=== PATIENT | male | born 1950 | race Caucasian/White ===

== ENCOUNTER → 2023-06-10 | Outpatient (CLI) | payer MEDICARE, OTHER, SELFPAY ==
[2023-06-10 16:27] LABS: PSA,Total - Annual Screen 0.96 ng/mL (0.00-4.00)
== END | disposition home or self-care (01) ==
PROVIDERS: PCP Internal Medicine; Referring Provider Nurse Practitioner; Visit Provider Nurse Practitioner
DX: Z12.5 Encounter for screening for malignant neoplasm of prostate (principal)
CPT/HCPCS: 36415; 84153; G0103

== ENCOUNTER 2025-01-31 10:03 | Emergency (ER) | payer MEDICARE, OTHER, SELFPAY ==
[2025-01-31 10:04] VITALS: BP 151/135; PULSE 92; RESP 15; TEMP 36.7; O2SAT 97; BMI 34.1
--- NOTE | 2025-01-31 10:23 | EX.ED.DYSGE1 ---
HPI History of Present Illness Chief Complaint: Abd Pain [facility] Medical History (Updated 01/31/25 @ 11:07 by Monica Huertas) Hyperlipemia Kidney disease Home Medications ?Medication ?Instructions ?Recorded ?Last Taken ?Type multivitamin with folic acid 400 1 tab PO DAILY 06/12/15 Unknown History mcg tablet (Thera) dutasteride 0.5 mg capsule 0.5 mg PO DAILY 01/31/25 Unknown History montelukast 10 mg tablet 10 mg PO QHS allergies 01/31/25 Unknown History simvastatin 40 mg tablet 40 mg PO QHS 01/31/25 Unknown History Allergy/AdvReac Type Severity Reaction Status Date / Time No Known Allergies Allergy Verified 01/31/25 10:07 Social History Smoking Status: Light Smoker (<10/day) EXAM Physical Exam Const Vital Signs: 01/31/25 10:04 01/31/25 12:04 01/31/25 14:37 Temperature 98.1 F Temperature Source Temporal Pulse Rate 92 65 Respiratory Rate 15 Blood Pressure 151/135 H 114/72 128/77 H Blood Pressure Mean 140 86 94 Pulse Ox 97 95 Oxygen Delivery Method Room Air Room Air [facility] MDM Narrative Medical decision making narrative: HISTORY OF PRESENT ILLNESS: 74-year-old male history of twisted bowel presents with abdominal pain. Notes he feels like he has not in the stomach every evening. Notes pain after eats a snack in the evening. Notes approximate 1 hour after eating he has pain in his right side of his abdomen. No vomiting. Notes he feels distended. REVIEW OF SYSTEMS: Pertinent positives: Abdominal pain Pertinent negatives: Vomiting PHYSICAL EXAM: Nursing triage notes reviewed, Vital signs reviewed Constitutional: please see mdm HENT: MMM Eyes: Pupils equal round and reactive to light, Extraocular muscles intact Neck: No stridor, no JVD, full neck ROM Lungs: Clear to auscultation, No wheezing or rales. No increased work of breathing, no conversational dyspnea, no accessory muscle use, no nasal flaring. No respiratory distress noted Heart: Regular rate and rhythm, No murmurs, No rubs and No gallops, 2+ distal pulses (radial, femoral, posterior tibial) in all extremities Abdomen: Soft, right-sided tenderness, no Palomino sign, rigidity, rebound or guarding, no obvious peritoneal signs, no palpable pulsatile abdominal masses, no auscultated abdominal bruit : No CVAT Extremities: No edema Neuro: No new focal neurological deficits, cranial nerves II through XII intact, 5/5 strength in all present extremities. Intact sensation to light touch in all present extremities, 2+ reflexes bilateral patella tendons. Skin: No rash or lesions noted MEDICAL DECISION MAKING: Chief Complaint: Abdominal pain External records reviewed: Reviewed prior ED visits. Reviewed CT scan from 2007 which showed right ureteral dilatation. Dilatation of the right ureter at the superior aspect of the pelvis Factors affecting care: History of volvulus, congenital atrophy of the kidney Social determinants of health: none History obtained from others: none Consults: none [facility] Narrative: The patient was initially hypertensive with a blood pressure 151/135 otherwise afebrile nontoxic-appearing. Abdominal exam overall benign slightly distended with right upper quadrant/right sided TTP but negative Palomino sign. I considered the following differential diagnosis: AAA, small bowel obstruction, abdominal perforation, appendicitis, pancreatitis, hepatobiliary pathology (acute cholecystitis), mesenteric ischemia, pathology (ie nephrolithiasis, pyelonephritis). ALL IMAGES (IF OBTAINED) HAVE BEEN PERSONALLY REVIEWED AND INTERPRETED BY MYSELF. CBC without leukocytosis, severe anemia, no thrombocytopenia. BMP with improved kidney function, no significant electrolyte abnormalities LFTs show no evidence of hepatobiliary pathology. Lipase is wnl indicating no pancreatic inflammation. Urinalysis with evidence of urinary inflammation and bacteria concerning for possible UTI. Will send urine for culture. CT scan abdomen pelvis showed no evidence of obvious perforation, obstruction but did show evidence of gallbladder wall thickening pericholecystic fluid concerning for acute cholecystitis. Given the read I obtained a right upper quadrant ultrasound. Right quad ultrasound was consistent with acute cholecystitis as well. Discussed with surgery. Discussed with Dr. Richmond. Who was concerned about the patient's kidney findings. Discussed with patient underwent further chart review which showed patient has chronic kidney issues. These do not appear to be new. Dr. Richmond did come down to ED to evaluate the patient. Awaiting her final recommendations. 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 The patient and/or family, caregivers express understanding. The patient and/or family, caregivers agrees with the plan. Shared decision making: I will have a discussion with the patient and or visitors regarding risk/benefits of further testing or admission. They will be made aware of of the risk/benefits inherent in this decision they will be given the opportunity to voice understanding. Total critical care time today provided was at least 0 minutes. This excludes separately billable procedures. Critical care time (if documented) is secondary to the patient having high probability of clinically significant/life threatening deterioration in the patient's condition which required my urgent intervention. Impression: 1. Abdominal pain 2. Gallbladder wall thickening 3. Pericholecystic fluid Dispo: Pending general surgery recommendations. Signed out to afternoon/evening physician pending general surgery recommendations This note was generated with Layer dictation software. It may contain incorrect words, spelling, and punctuation that were not noted in review of the chart prior to signing. Lab Data Labs: Laboratory Results - last 24 hr 01/31/25 01/31/25 10:55 11:05 WBC 7.6 RBC 5.17 Hgb 14.7 Hct 43.8 MCV 84.7 MCH 28.4 MCHC 33.6 RDW Std Deviation 41.7 RDW Coeff of Mildred 13.4 Plt Count 188 MPV 10.3 Immature Gran % (Auto) 0.100 Neut % (Auto) 70.8 H Lymph % (Auto) 16.0 L [place] % (Auto) 10.8 H Eos % (Auto) 1.8 Baso % (Auto) 0.5 Absolute Neuts (auto) 5.4 Absolute Lymphs (auto) 1.21 Nucleated RBC % 0 Sodium 138 Potassium 4.5 Chloride 105 Carbon Dioxide 26.2 Anion Gap 7 BUN 19 Creatinine 1.42 H Estim Creat Clear Calc 57.85 Est GFR (MDRD) Non-Af 53 L BUN/Creatinine Ratio 13.1 Glucose 116 H Calcium 9.3 Total Bilirubin 0.27 AST 20 ALT 22 Alkaline Phosphatase 80 Total Protein 6.6 Albumin 4.0 Globulin 2.6 Albumin/Globulin Ratio 1.5 Lipase 31 Urine Color Yellow Urine Clarity Cloudy Urine pH 6.0 Ur Specific [place] 1.015 Urine Protein 15 H Urine Glucose (UA) Normal Urine Ketones Negative Urine Occult Blood 25 H Urine Nitrite Negative Urine Bilirubin Negative Urine Urobilinogen Normal Ur Leukocyte Esterase 500 H Urine RBC 5-10 SEEN Urine WBC 50-100 SEEN Ur Squamous Epith Cells 0-5 SEEN Urine Bacteria 3+ Urine Mucus 0 SEEN Radiography Diagnostic Testing: Clinical Impression(s) from Imaging Studies Abdomen/Pelvis CT 01/31/25 10:37 IMPRESSION: Multiple small gallstones more prominent and neck of the gallbladder with mild thickening of the gallbladder wall and pericholecystic fluid. Multiple cystic structures are seen in the right kidney with the minimal residual parenchymal tissue suggestive of chronic marked degree of right hydronephrosis with right hydroureter down to the level of the right ureterovesical junction where there is irregular thickening and enlargement of the prostate more prominent on the right side. Findings suggestive of possible polypoid lesion at the base of the bladder more prominent on the right side. Diffuse bladder wall thickening. Reading Location: [facility] Abdomen Ultrasound 01/31/25 13:15 IMPRESSION: Sludge and gallstones seen within the gallbladder lumen with evidence of gallbladder wall thickening and pericholecystic fluid. Acute cholecystitis should be ruled out. Abnormal appearance of the right kidney as described. Fatty infiltration of the liver. Hepatomegaly. Reading Location: [facility] Discharge Plan Triage Chief Complaint: Abd Pain ED Provider: Rashi Lee Dx/Rx/DC Orders Prescriptions: No Action multivitamin with folic acid [Thera] 1 TABLET tablet 1 tab PO DAILY simvastatin 40 mg tablet 40 mg PO QHS montelukast 10 mg tablet 10 mg PO QHS dutasteride 0.5 mg capsule 0.5 mg PO DAILY Primary Care Provider: Erwin Garcia Referrals: Erwin Garcia MD [Primary Care Provider] - Print Language: Comoran
--- NOTE | 2025-01-31 10:37 | CT_ITS ---
PROCEDURE: ABDOMEN/PELVIS WITH CONTRAST 01/31/2025 REASON FOR EXAM: ABDOMINAL PAIN History of prior volvulus. TECHNIQUE: Abdomen CT without and with intravenous contrast. Coronal and Sagittal reconstruction series were provided. PATIENT PREPARATION: Per protocol ORAL CONTRAST TYPE: Given. CONTRAST: Isovue-300 VOLUME: 100 mLmL Gauge IV One or more dose reduction techniques were used (e.g., Automated exposure control, adjustment of the mA and/or kV according to patient size, use of iterative reconstruction technique. RADIATION DOSE SUMMARY: CTDlvol: 15 mGy DLP: 933.41 mGycm COMPARISON: None. COMPARISON: None. FINDINGS: Lung bases: Minimal degree of increased linear markings at the lung bases suggestive of mild linear scarring. No coronary artery calcification is seen. Liver: Diffuse fatty infiltration. Gallbladder: Multiple small gallstones. Minimal thickening of the gallbladder wall with findings suggestive of small amount of pericholecystic fluid. The stones are seen in the region of the neck of the gallbladder. Spleen: Multiple calcified splenic granulomas. Pancreas: Normal size without evidence of mass surrounding inflammation or ductal dilation. Adrenals: Unremarkable. Kidneys: Multiple cystic structures are seen in the right kidney. Minimal renal parenchyma is visualized. This may represent a chronic marked degree of right hydronephrosis. There is dilatation of the right ureter down to the level of the right ureterovesical junction where there is heterogeneous enlargement of the prostate and possible polypoid mass at the base of the bladder worse on the right side. The left kidney is unremarkable. Bladder: Mild degree of diffuse bladder wall thickening. Questionable polypoid mass at the base of the bladder more prominent on the right side. Prostatic enlargement with the calcifications. Bowel: Colonic diverticulosis without diverticulitis. Appendix: The appendix is not identified. There is no inflammatory process identified in the right lower quadrant to suggest appendicitis. Lymph nodes: No suspicious lymph node enlargement. Vasculature: Mild diffuse atherosclerotic calcifications are noted. Peritoneum / Retroperitoneum: No enlarged retroperitoneal lymph nodes are seen. Bones: Degenerative changes of the spine. CT/Abdomen/Pelvis WITH Contrast IMPRESSION: Multiple small gallstones more prominent and neck of the gallbladder with mild thickening of the gallbladder wall and pericholecystic fluid. Multiple cystic structures are seen in the right kidney with the minimal residu al parenchymal tissue suggestive of chronic marked degree of right hydronephrosis with right hydroureter down to the level of the right ureterovesical junction where there is irregular thickening and enlargement of the prostate more prominent on the righ t side. Findings suggestive of possible polypoid lesion at the base of the bladder more prominent on the right side. Diffuse bladder wall thickening. Reading Location: [place] [id number]
[2025-01-31 11:02] LABS: Absolute Lymphocyte Count 1.21 X10^3/uL (0.83-4.51); Absolute Neutrophil Count 5.4 X10^3/uL (2.0-7.7); Basophil# 0.04 X10^3/uL; Basophil% 0.5 % (0-1); Eosinophil# 0.14 X10^3/uL; Eosinophils% 1.8 % (0-5); Hematocrit 43.8 % (40-54); Hemoglobin 14.7 g/dL (13.0-16.5); Lymphocyte # 1.21 X10^3/ul (0.83-4.51); Mean Corp Hgb Conc 33.6 g/dL (32-36); Mean Corpuscular Hgb 28.4 pg (27.0-32.0); Mean Corpuscular Volume 84.7 fL (80-94); Mean Platelet Vol. 10.3 fl (6.2-12.0); Monocyte# 0.82 X10^3/uL; Monocyte% 10.8 % (0-10); NRBC Flagged by Analyzer 0 % (0-5); Neutrophil # 5.35 X10^3/uL (2.7-7.7); Neutrophil % 70.8 % (47-70); Platelet Count 188 K/mm3 (150-450); RBC Distribution Width CV 13.4 % (11.6-14.6); RBC Distribution Width SD 41.7 fl (35.1-43.9); Red Blood Count 5.17 M/mm3 (4.6-6.2); White Blood Count 7.6 K/mm3 (4.4-11.0)
[2025-01-31] MEDS: Ketorolac 15 MG/ML Vial IV (11:03)
[2025-01-31] MEDS: Ondansetron 4 MG/2 ML Vial IV (11:03)
[2025-01-31] MEDS: 0.9% Normal Saline (1000mL) 1,000 ML 999 ML IV (11:03)
[2025-01-31 11:17] LABS: Mucous, Urine 0 SEEN /hpf (<or=2+)
[2025-01-31 11:24] LABS: Color, Urine Yellow (Yellow); Glucose, Dipstick Normal (Normal); Ketone-Dipstick Negative (Negative); Leukocyte Esterase-Dipstick 500 /ul (Negative); Nitrite-Dipstick Negative (Negative); Occult Blood-Urine 25 /ul (Negative); Protein-Dipstick 15 mg/dl (Negative); Specific Gravity, Urine 1.015 (1.002-1.030); Urine Bilirubin Dipstick Negative (Negative); Urine Clarity Cloudy (Clear); Urine Urobilinogen Normal (Normal)
[2025-01-31 11:40] LABS: White Blood Cells 50-100 SEEN /hpf (0-5)
[2025-01-31 11:42] LABS: Red Blood Cells-Urine 5-10 SEEN /hpf (0-5)
[2025-01-31 11:43] LABS: Squamous Epithelial Cells - UA 0-5 SEEN /hpf (0-5)
[2025-01-31 11:44] LABS: Bacteria 3+ /hpf (None Seen)
[2025-01-31 11:56] LABS: Lipase 31 U/L (13-75)
[2025-01-31 11:57] LABS: ALB/GLOB Ratio 1.5 RATIO (0.9-2.4); AST(SGOT) 20 U/L (<=37); Alanine Aminotransfer ALT/SGPT 22 U/L (<=46); Alkaline Phosphatase 80 U/L (40-129); Anion Gap 7 (5-15); BUN 19 mg/dL (4-19); BUN/Creat Ratio 13.1 RATIO (10-20); Calcium,Total 9.3 mg/dL (7.6-11.0); Carbon Dioxide 26.2 mmol/L (21.0-32.0); Chloride 105 mmol/L (98-108); Creatinine, Serum 1.42 mg/dL (0.70-1.20); EST Glomerular Filtration Rate 53 (>60); Estimated Creatinine Clearance 57.85 ml/min (50-250); Globulin 2.6 g/dL (2.2-4.2); Glucose 116 mg/dL (70-99); Potassium 4.5 mmol/L (3.3-5.1); Protein, Total 6.6 g/dL (5.9-8.4); Sodium Level 138 mmol/L (133-145); Total Bilirubin 0.27 mg/dL (0.00-1.30)
[2025-01-31 12:04] VITALS: BP 114/72; PULSE 65; O2SAT 95
--- NOTE | 2025-01-31 13:15 | US_ITS ---
PROCEDURE: ABDOMEN LIMITED REASON FOR EXAM: PERICHOLECYSTIC FLUID R/O ACUTE CHOLECYSTITIS COMPARISON: Comparison is made with prior CT scan done earlier in the day. FINDINGS: Liver: Diffusely echogenic suggesting fatty infiltration. Hepatomegaly. The liver measures 19.7 cm. Gallbladder: Sludge and multiple small gallstones are seen within the gallbladder lumen. The gallbladder wall is thickened measuring 4.6 mm. Small amount of pericholecystic fluid. Common bile duct: Normal measuring it measures 4.4 mm.. Pancreas: Visualized portions are sonographically unremarkable. Abnormal appearance of the right kidney with minimal renal parenchyma. Multi cystic changes are seen suggestive of either chronic severe hydronephrosis versus multiple cysts. US/Abdomen Limited IMPRESSION: Sludge and gallstones seen within the gallbladder lumen with evidence of gallbl adder wall thickening and pericholecystic fluid. Acute cholecystitis should be ruled out. Abnormal appearance of the right kidney as described. Fatty infiltration of the liver. Hepatomegaly. Reading Location: [facility]-
[2025-01-31 14:37] VITALS: BP 128/77
[2025-01-31 16:00] VITALS: BP 137/78; O2SAT 93
[2025-01-31] MEDS: Pantoprazole Sodium 40 MG in 0.9% Normal Saline (100mL MB+) 100 ML 330 MG IV (16:22)
--- NOTE | 2025-01-31 16:24 | ED.RN ---
[facility] called to have CT of abd and pelvis transmitted to [facility].
--- NOTE | 2025-01-31 16:47 | EX.PCM.CON.S ---
Assessment & Plan Assessment/Plan (1) Gallstones: (2) Bloating symptom: (3) Kidney atrophy: PLAN: Plan Pt symptoms were bloating and fit with gastritic etiology more than gallstones. Patient CT abdomen pelvis does show questionable haziness around the gallbladder however patient's white blood count is normal, no change in LFTs patient does have some gallstones. Patient has been able to eat fatty greasy foods without any issues and then usually his issues have come on at night after laying down. Describes as a bloating sensation denies any real pain. Will have patient start omeprazole 40 mg p.o. daily as well as Pepcid first 2 to 3 days and have him follow-up in office in 1 week with me. Also advised low-fat diet until follow-up. Patient is are agreeable to plan. Patient CT abdomen pelvis also shows severe hydronephrosis. Patient states he has an atrophic right kidney that is about the size of a walnut. However did not have previous imaging here unsure why he would have severe hydronephrosis of the ureter and have a smaller bladder if there is not some sort of blockage. Patient's UA also appears to have a UTI. Urine culture was ordered by the ER doctor physician. Recommend getting previous CT a/p to compare the right kidney.?Addendum: CT abdomen pelvis 2016 patient did have hydronephrosis at that time as well not quite as severe. Deferred to urology. Elana Richmond M.D. Pager: [phone] [facility] [address] [place] [address], [facility], [address] [place] [address] Office: [phone] HPI Consult Data Date of Consult: 01/31/25 HPI Narrative HPI Narrative: HOLLIE POWERS, is a 74 M who presents to the ER due to abdominal bloating. Patient states this happened 2 or 3 times last happened last night after eating some trail bologna and cheese states has been an hour after having a snack before bed and laying down they had abdominal bloating could not get comfortable. Patient had this previously at night as well. Patient has been able to eat peanuts and other fatty foods without any issues previously-even for supper last night. Patient denies any nausea or vomiting. Patient does have history of atrophy of the right kidney and states it was the size of a walnut no previous abdominal imaging here. Patient currently denies any abdominal pain states he did have some dysuria after he gave a urine sample in the ER but then went again and did not have any. Patient has a normal white blood cell count at 7.6, no shift, normal LFTs, creatinine 1.42, patient's UA does have 500 leukoesterase, 0-5 squamous and 3+ bacteria. Patient states that he had seen previously seen Dr. Romero for the hydronephrosis and there was nothing to do at that time. COUNT INCLUDES THE [facility] Medical History (Updated 01/31/25 @ 17:[address] Elana Richmond MD) Hyperlipemia Kidney disease Home Medications ?Medication ?Instructions ?Recorded ?Last Taken ?Type multivitamin with folic acid 400 1 tab PO DAILY 06/12/15 Unknown History mcg tablet (Thera) ciprofloxacin HCl 500 mg tablet 500 mg PO BID 7 days #14 TABLETS 01/31/25 Unknown Rx dutasteride 0.5 mg capsule 0.5 mg PO DAILY 01/31/25 Unknown History montelukast 10 mg tablet 10 mg PO QHS allergies 01/31/25 Unknown History omeprazole 40 mg capsule,delayed 40 mg PO DAILY #30 caps 01/31/25 Unknown Rx release simvastatin 40 mg tablet 40 mg PO QHS 01/31/25 Unknown History Allergy/AdvReac Type Severity Reaction Status Date / Time No Known Allergies Allergy Verified 01/31/25 10:07 Surgical History (Updated 01/31/25 @ 16:[address] Elana Richmond MD) Hx of laparoscopy Status post appendectomy Social History Smoking Status: Light Smoker (<10/day) ROS Constitutional Constitutional: Reports anorexia ENT HEENT: Denies dysphagia Cardiovascular Cardiovascular: Denies chest pain Respiratory/Chest Respiratory/Chest: Denies cough Gastrointestinal Gastrointestinal: Reports bloating; Denies abdominal pain, constipation, diarrhea, nausea or vomiting Genitourinary Genitourinary: Reports dysuria Integumentary Integumentary: Denies jaundice Psychiatric Psychiatric: Denies anxiety or depression Endocrine Endocrinology: Denies palpitations Hematologic/Lymphatic Hematologic/Lymphatic: Denies easy bleeding Physical Exam Const alert, oriented x3 and no apparent distress HEENT normocephalic and head/scalp atraumatic Resp normal respiratory effort Cardio regular rate GI soft to palpation and non-tender; Negative for non-distended Palpation: Negative for guarding Extremity no clubbing, cyanosis or edema Skin no rashes or lesions noted Neuro CN's II-XII intact bilaterally Psych mental status grossly normal Lab / Micro Data 01/31/25 10:55 01/31/25 10:55 Labs: Laboratory Results - last 24 hr 01/31/25 10:55: WBC 7.6, RBC 5.17, Hgb 14.7, Hct 43.8, MCV 84.7, MCH 28.4, MCHC 33.6, RDW Std Deviation 41.7, RDW Coeff of Mildred 13.4, Plt Count 188, MPV 10.3, Immature Gran % (Auto) 0.100, Neut % (Auto) 70.8 H, Lymph % (Auto) 16.0 L, [place] % (Auto) 10.8 H, Eos % (Auto) 1.8, Baso % (Auto) 0.5, Absolute Neuts (auto) 5.4, Absolute Lymphs (auto) 1.21, Nucleated RBC % 0, Sodium 138, Potassium 4.5, Chloride 105, Carbon Dioxide 26.2, Anion Gap 7, BUN 19, Creatinine 1.42 H, Estim Creat Clear Calc 57.85, Est GFR (MDRD) Non-Af 53 L, BUN/Creatinine Ratio 13.1, Glucose 116 H, Calcium 9.3, Total Bilirubin 0.27, AST 20, ALT 22, Alkaline Phosphatase 80, Total Protein 6.6, Albumin 4.0, Globulin 2.6, Albumin/Globulin Ratio 1.5, Lipase 31 01/31/25 11:05: Urine Color Yellow, Urine Clarity Cloudy, Urine pH 6.0, Ur Specific [place] 1.015, Urine Protein 15 H, Urine Glucose (UA) Normal, Urine Ketones Negative, Urine Occult Blood 25 H, Urine Nitrite Negative, Urine Bilirubin Negative, Urine Urobilinogen Normal, Ur Leukocyte Esterase 500 H, Urine RBC 5-10 SEEN, Urine WBC 50-100 SEEN, Ur Squamous Epith Cells 0-5 SEEN, Urine Bacteria 3+, Urine Mucus 0 SEEN Imaging Radiology Impression Abdomen/Pelvis CT 01/31/25 10:37 IMPRESSION: Multiple small gallstones more prominent and neck of the gallbladder with mild thickening of the gallbladder wall and pericholecystic fluid. Multiple cystic structures are seen in the right kidney with the minimal residual parenchymal tissue suggestive of chronic marked degree of right hydronephrosis with right hydroureter down to the level of the right ureterovesical junction where there is irregular thickening and enlargement of the prostate more prominent on the right side. Findings suggestive of possible polypoid lesion at the base of the bladder more prominent on the right side. Diffuse bladder wall thickening. Reading Location: [facility] Abdomen Ultrasound 01/31/25 13:15 IMPRESSION: Sludge and gallstones seen within the gallbladder lumen with evidence of gallbladder wall thickening and pericholecystic fluid. Acute cholecystitis should be ruled out. Abnormal appearance of the right kidney as described. Fatty infiltration of the liver. Hepatomegaly. Reading Location: [facility] Charges/Coding Multi Select Codes Visit Charges Office Visit/Consults: 10612 OP Consult L4
[2025-01-31 17:53] VITALS: BP 137/78; PULSE 65; RESP 15; TEMP 36.7; O2SAT 93
== END 2025-01-31 17:59 | disposition home or self-care (01) ==
PROVIDERS: Emergency Provider Emergency Medicine; PCP Internal Medicine; Visit Provider Emergency Medicine
DX: K80.20 Calculus of gallbladder without cholecystitis without obstruction (principal); Q60.0 Renal agenesis, unilateral; Q62.0 Congenital hydronephrosis; Q60.3 Renal hypoplasia, unilateral; N28.1 Cyst of kidney, acquired; N39.0 Urinary tract infection, site not specified; E78.5 Hyperlipidemia, unspecified; F17.200 Nicotine dependence, unspecified, uncomplicated; Z79.899 Other long term (current) drug therapy; Z87.19 Personal history of other diseases of the digestive system
CPT/HCPCS: 74177; 76705; 80053; 81001; 83690; 85025; 87077; 87086; 87088; 87186; 96361; 96365; 96375; 99283; Q9967; A4216; J2405

== ENCOUNTER 2025-02-25 09:52 | Observation (INO) | payer MEDICARE, OTHER, SELFPAY ==
--- NOTE | 2025-02-15 08:44 | EKG12_ITS ---
Test Reason : PREOP Blood Pressure : */* mmHG Vent. Rate : 74 BPM Atrial Rate : 74 BPM P-R Int : 134 ms QRS Dur : 84 ms QT Int : 374 ms P-R-T Axes : 46 -1 71 degrees QTcB Int : 415 ms Normal sinus rhythm Low voltage QRS Possible Inferior infarct , age undetermined Abnormal ECG Confirmed by YAYA CLARKE, LEIGHTON ([id number]), multimedia editor LARY EDWARDS ([id number]) on 02/16/2025 6:36:46 AM Referred By: [place] Romero Confirmed By: LEIGHTON JAVIER MD
--- NOTE | 2025-02-15 16:25 | PAT.ANE_ITS ---
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 When Was Last Pacemaker Check QUESTION #4 FULL TEXT: You/Your Family Experience fever (hyperthermia) with Anesthesia Last Oral Intake Last Oral intake: Last Oral Intake NPO since Meds taken in AM with sips of water? Meds patient instructed to take am of surgery PONV PONV - director retail brand development: PONV - director retail brand development Female No 02/11/25 13:33 HX of Motion Sickness No 02/11/25 13:33 HX of N/V After Surgery No 02/11/25 13:33 Non-Smoker No 02/11/25 13:33 Duration of Surgery greater Yes 02/11/25 13:33 than 60 minutes Number of Risk Factors 1 02/11/25 13:33 PONV Score Low Risk 02/11/25 13:33 Height & Weight Height & Weight: Anesthesia: Height & Weight Height 5 ft 10 in 02/07/25 09:39 Respiratory Assessment Respiratory Assessment - director retail brand development: Respiratory Tract Infection Hx - director retail brand development Hx Respiratory Tract Infection No 02/11/25 13:33 STOP Sleep Apnea STOP Sleep Apnea - director retail brand development: STOP Sleep Apnea - director retail brand development Hx Hypertension No 02/11/25 13:33 Hx Sleep Apnea No 02/11/25 13:33 CPAP BIPAP Do you snore loudly (louder Yes 02/11/25 13:33 than talking or can be heard Do you often feel tired/ No 02/11/25 13:33 fatigued/ sleepy during daytime? Has anyone observed you stop No 02/11/25 13:33 breathing during sleep? STOP Results Negative 02/11/25 13:33 QUESTION #5 FULL TEXT : Do you snore loudly (louder than talking or can be heard through closed doors)? 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 Specify any problems Hx of Preganancy in last 3 N/A 02/11/25 13:33 Months Nurse Filling Out Transfusion JZOLLINGE 02/11/25 13:33 & Questions: Date: 02/11/25 02/11/25 13:33 Time: 13:35 02/11/25 13:33 Patient unable to answer at this time (ie. confused, unrespo /Reproduction History /Reproductive History - director retail brand development: /Reproductive Hx- director retail brand development Hx Now No 02/11/25 13:33 Gestational Age (in weeks): EDC: Hx Hx Para Hx Section SAB No 02/11/25 13:33 [facility] Medical History (Updated 02/11/25 @ 13:33 by Neema Gr) Wears glasses Wears dentures Wears partial dentures Alcohol use Loss of consciousness Dietary restriction Gastric reflux Smoker Chronic cough Hyperlipemia Kidney disease Home Medications ?Medication ?Instructions ?Recorded ?Last Taken ?Type multivitamin with folic acid 400 1 tab PO DAILY Unknown History mcg tablet (Thera) Held on 02/11/25. Instructions: WHILE TAKING CIPRO dutasteride 0.5 mg capsule 0.5 mg PO DAILY 01/31/25 Un known History montelukast 10 mg tablet 10 mg PO QHS allergies 01/31 Unknown History simvastatin 40 mg tablet 40 mg PO QHS 01/31/25 Unknow n History omeprazole 40 mg capsule,delayed 40 mg PO QDAY #30 cap s 02/08/25 Unknown Rx release ciprofloxacin HCl 500 mg tablet 500 mg PO .QD 02/11/25 Unknown History omeprazole 40 mg capsule,delayed 40 mg PO QDAY #30 cap s 02/14/25 Unknown Rx release sucralfate 1 gram tablet 1 g PO QACHS #56 tabs Unknown Rx Allergy/AdvReac Type Severity Reaction Status Date / Time No Known Allergies Allergy Verified 02/11/25 13:21 Family History (Updated 02/07/25 @ 09:38 by Jemima Samano) Mother Diabetes Brother Diabetes Colon cancer Surgical History Hx of laparoscopy Status post appendectomy Social History (Updated 02/07/25 @ 09:43 by Jemima Samano) Smoking Status: Light Smoker (<10/day) quit status: not considering quitting Audit: Pertinent Findings Pertinent Findings EKG Perinent findings: June 12, 2015. Normal sinus rhythm. Recommendation Anesthesia Recommendation Anesthesia recommendation: OPTIMIZED for anesthesia
[2025-02-25] VITALS (17 sets, daily range): BP systolic 108–144; BP diastolic 54–85; PULSE 64–86; RESP 14–20; TEMP 36.3–37.2; O2SAT 92–98; BMI 33.0
[2025-02-25] MEDS: 0.9% Normal Saline (1000mL) 1,000 ML 15 ML IV (06:42)
--- NOTE | 2025-02-25 07:10 | PRE.ANES_ITS ---
ASA Classification* ASA Classification ASA Classification: 2 Assessment & Plan Anesthesia* Anesthesia Assessment Anesthesia Assessment: Discussed sedation and/or anesthesia options, risks, benefits, and alternatives with patient/parents/legal guardian/POA. Questions invited. The patient/parents/legal guardian/POA seems to understand and agrees to proceed with anesthesia plan. Reviewed the physical assessment, medical history, allergy history and patient home medications list prior to surgery/procedure/anesthetic and documented any changes. Performed airway and anesthesia risk assessments. Anesthesia Type Anesthesia Type: General Anesthesia Focused Assessment* Temperature: 97.3 F Pulse Rate: 64 Blood Pressure: 144/85 Respiratory Rate: 20 Pulse Ox: 95 Airway Assessment Mouth opens: >3 cm Mallampati Score: II Focused Labs Anesthesia Preop lab: CBC WBC 7.6 K/mm3 (4.4-11.0) 01/31/25 10:55 01/31/25 RBC 5.17 M/mm3 (4.6-6.2) 01/31/25 10:55 01/31/25 Hgb 14.7 g/dL (13.0-16.5) 01/31/25 10:55 01/31/25 Hct 43.8 % (40-54) 01/31/25 10:55 01/31/25 Plt Count 188 K/mm3 (150-450) 01/31/25 10:55 01/31/25 CHEMISTRY Potassium 4.5 mmol/L (3.3-5.1) 01/31/25 10:55 01/31/25 Sodium 138 mmol/L (133-145) 01/31/25 10:55 01/31/25 BUN 19 mg/dL (4-19) 01/31/25 10:55 01/31/25 Creatinine 1.42 mg/dL (0.70-1.20) H 01/31/25 10:55 Glucose 116 mg/dL (70-99) H 01/31/25 10:55 01/31/25 COAG Pre-Assessment Diagnosis/Proposed Procedure Planned Operative Procedure(s): (R) Laparoscopic, Robotic, Nephrectomy, Ureterectomy Anesthesia History 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 When Was Last Pacemaker Check QUESTION #4 FULL TEXT: You/Your Family Experience fever (hyperthermia) with Anesthesia Last Oral Intake Last Oral intake: Last Oral Intake NPO since 22:00 02/25/25 06:26 Meds taken in AM with sips of water? 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 Female No 02/11/25 13:33 HX of Motion Sickness No 02/11/25 13:33 HX of N/V After Surgery No 02/11/25 13:33 Non-Smoker No 02/11/25 13:33 Duration of Surgery greater Yes 02/11/25 13:33 than 60 minutes Number of Risk Factors 1 02/11/25 13:33 PONV Score Low Risk 02/11/25 13:33 Height & Weight Height & Weight: Anesthesia: Height & Weight Height 5 ft 10 in 02/25/25 06:26 Weight: 104.5 kg 02/25/25 06:26 Body Mass Index (BMI) 33.0 02/25/25 06:26 Respiratory Assessment Respiratory Assessment - oil and gas well treatment operator: Respiratory Tract Infection Hx - oil and gas well treatment operator Hx Respiratory Tract Infection No 02/11/25 13:33 STOP Sleep Apnea STOP Sleep Apnea - oil and gas well treatment operator: STOP Sleep Apnea - oil and gas well treatment operator Hx Hypertension No 02/11/25 13:33 Hx Sleep Apnea No 02/11/25 13:33 CPAP BIPAP Do you snore loudly (louder Yes 02/11/25 13:33 than talking or can be heard Do you often feel tired/ No 02/11/25 13:33 fatigued/ sleepy during daytime? Has anyone observed you stop No 02/11/25 13:33 breathing during sleep? STOP Results Negative 02/11/25 13:33 QUESTION #5 FULL TEXT : Do you snore loudly (louder than talking or can be heard through closed doors)? 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 Specify any problems Hx of Preganancy in last 3 N/A 02/11/25 13:33 Months Nurse Filling Out Transfusion JZOLLINGE 02/11/25 13:33 & Questions: Date: 02/11/25 02/11/25 13:33 Time: 13:35 02/11/25 13:33 Patient unable to answer at this time (ie. confused, unrespo /Reproduction History /Reproductive History - oil and gas well treatment operator: /Reproductive Hx- oil and gas well treatment operator Hx Now No 02/11/25 13:33 Gestational Age (in weeks): EDC: Hx Hx Para Hx Section SAB No 02/11/25 13:33 Active Medications Active Medications: Current Medications Generic Name Dose Route Start Last Admin Trade Name Freq PRN Reason Stop Dose Admin Cefazolin Sodium 2 gm/ N/A 20 mls @ 400 mls/hr 02/25/25 07:30 IV 02/25/25 07:32 X1 ONE Sodium Chloride 1,000 mls @ 15 mls/hr 02/25/25 06:00 02/25/25 06:42 IV 15 mls/hr .Q48H MARVIN Administration PFSH Medical History Wears glasses Wears dentures Wears partial dentures Alcohol use Loss of consciousness Dietary restriction Gastric reflux Smoker Chronic cough Hyperlipemia Kidney disease Home Medications ?Medication ?Instructions ?Recorded ?Last Taken ?Type multivitamin with folic acid 400 1 tab PO DAILY 02/04/25 History mcg tablet (Thera) Held on 02/11/25. Instructions: WHILE TAKING CIPRO dutasteride 0.5 mg capsule 0.5 mg PO DAILY 01/31/25 Un known History montelukast 10 mg tablet 10 mg PO QHS allergies 01/3102/24/25 History simvastatin 40 mg tablet 40 mg PO QHS 01/31/25 Unknow n History omeprazole 40 mg capsule,delayed 40 mg PO QDAY #30 cap s 02/08/25 Unknown Rx release ciprofloxacin HCl 500 mg tablet 500 mg PO .QD 02/11/25 02/24/25 History sucralfate 1 gram tablet 1 g PO QACHS #56 tabs 02/24/25 Rx Allergy/AdvReac Type Severity Reaction Status Date / Time No Known Allergies Allergy Verified 02/25/25 06:24 Family History Mother Diabetes Brother Diabetes Colon cancer Surgical History Hx of laparoscopy Status post appendectomy Social History Smoking Status: Light Smoker (<10/day) quit status: not considering quitting Review of Systems (Anesthesia) ROS Narrative System reviewed and no additional complaints, except as documented.
--- NOTE | 2025-02-25 07:30 | KID_PTH ---
PATIENT: HOLLIE POWERS LOC: [facility] U#:[id number] AGE/SX: 74/M ROOM: [facility]308 RE02/25/[address]: Dr. Los Romero MD : 1950 BED: 1 DIS: 02/27/2025 SPEC #: [id number] RECD: 02/25/25 10:35 STATUS: AVERY FUKN #: [id number] DARIA: 02/25/25 07:[address]: Los Romero DEPT: SURGICAL PATHOLOGY RECD BY: Trell Guerin ENTERED: 02/25/25 10:36 SP TYPE: KIDNEY OTHR DR: Dr. Erwin Garcia MD Tissues: A - Kidney, NOS Procedures: Surgery Specimen Level V HEADER OPERATION: Laparoscopic robotic, right nephroureterectomy PRE-OP DIAGNOSIS: Right hydronephrosis TISSUE SUBMITTED: A- Right kidney, right ureter MICROSCOPIC DIAGNOSIS A. Right kidney, right ureter, hydronephrosis, nephroureterectomy: * Hydronephrosis and cortical atrophy. * Bifurcation of dilated ureter. * Negative for neoplasia. MICROSCOPIC DESCRIPTION Slides are reviewed. GROSS DESCRIPTION A. Received in formalin in a container labeled with the patient's name, date of , and right kidney, right ureter is a 164 g unoriented nephrectomy specimen with attached perirenal fat and a detached ureter. The kidney is 14.0 x 7.5 x 3.5 cm. There are 2 clamped vascular margins measuring 1.3 x 0.2 cm and 1.5 x 0.8 cm. Each is shaved to reveal a patent, unremarkable lumen. The attached possible dilated ureter is 5.5 cm in length by 3.7 cm in diameter. It appears previously disrupted at the margin. Adjacent to the possible ureter is a secondary dilated argueta-pink and tubular-like structure measuring 5.5 cm in length by 5.0 cm in diameter. The specimen is bivalved to reveal that each tubular structure corresponds to the markedly dilated, cystic kidney. The entire kidney is comprised of argueta-pink, smooth surfaces, grossly consistent with dilated calyces. A few tiny argueta nodules are present, 0.1 to 0.2 cm. The nodules appear confined to the mucosal surface. No typical red-brown renal parenchyma is identified. No cortical medullary junctions are present. A single white undesignated suture is identified at one end (inked black). The detached ureter is unoriented. There is an 11.5 x 1.3 cm segment which exhibits a bifurcation that communicates with 2 separate tubular structures measuring 5.5 x 0.9 cm and 7.5 x 1.5 cm. Digital images are taken. Serial sections reveal argueta-pink mucosa with multiple scattered argueta nodules ranging from 0.1 to 0.2 cm. The nodules are confined to the mucosa. No mass lesion is grossly recognized. Received in the same container is argueta-yellow, lobulated adipose tissue measuring 13.5 x 6.0 x 3.0 cm. Serial sections reveal homogenous cut surfaces. Registered Occupational Therapist sections:A1. Vascular margins, en faceA2-3. Serial sections of dilated kidney (inked black at suture)A4. Small nodules present at dilated kidneyA5. 3 ureteral margins, en face (single aspect with each bifurcated lumen)A6. Ureter before bifurcation with small argueta nodulesA7. Ureter at bifurcationA8. Separate, bifurcated ureters with small argueta nodules [facility] 03/09/2025 CPT:44305
[2025-02-25] MEDS: Cefazolin 2 GM in Syringe IV (07:50)
[2025-02-25] MEDS: Bupivacaine Mpf 0.5% 30 ML VIAL (09:44)
--- NOTE | 2025-02-25 09:44 | DCINST_ITS ---
Discharge Instructions Diet Discharge Diet: No restrictions DC O2, CPAP, BIPAP needs Home O2 Discharge instructions: No Dressing / Incision Discharge Activity: Return to Normal Activity and May Not Drive (while taking narcotic pain medications.) Dressing / Incision Call your doctor if you observe: Fever of 101 or Higher Follow Up Care Please Follow Up With: Los Romero MD When: Call [phone] for an appointment Test Results: Test results from this visit will be discussed in further detail at your follow- up appointment, if applicable. Discharge Plan Admission Primary Reason for Your Visit: Right nephro ureterectomy Attending Provider: Los Romero Primary Care Provider: Erwin Garcia Instructions Print Language: Estonian Discharge Orders/Prescriptions Prescriptions: New oxycodone 5 mg tablet 5 mg PO Q6H PRN (Reason: pain) 7 Days Qty: 14 0RF Continued omeprazole 40 mg capsule,delayed release(DR/EC) 40 mg PO QDAY Qty: 30 3RF Rx Instructions: swallow whole; do not crush, chew, dissolve, cut, break sucralfate 1 gram tablet 1 g PO QACHS Qty: 56 0RF Rx Instructions: Take an hour before meals and at bedtime multivitamin with folic acid [Thera] 1 TABLET tablet 1 tab PO DAILY simvastatin 40 mg tablet 40 mg PO QHS montelukast 10 mg tablet 10 mg PO QHS dutasteride 0.5 mg capsule 0.5 mg PO DAILY Discontinued ciprofloxacin HCl 500 mg tablet 500 mg PO .QD Referrals / Follow Up: Los Romero MD [Med Staff - Active Staff] - Erwin Garcia MD [Primary Care Provider] - Disposition Disposition (needs filled in before D/C Order can be placed): Home, Self Care
--- NOTE | 2025-02-25 09:44 | PCM.HP.STD ---
HPI - General General Date of Service: 02/25/25 Chief Complaint: Right nonfunctioning kidney HPI Narrative HOLLIE POWERS, is a 74 M who presents removal of a large right nonfunctioning kidney that is giving him pain and problems recently with a hospital with an infection. [facility] Medical History Wears glasses Wears dentures Wears partial dentures Alcohol use Loss of consciousness Dietary restriction Gastric reflux Smoker Chronic cough Hyperlipemia Kidney disease Home Medications ?Medication ?Instructions ?Recorded ?Last Taken ?Type multivitamin with folic acid 400 1 tab PO DAILY 06/12/15 02/04/25 History mcg tablet (Thera) dutasteride 0.5 mg capsule 0.5 mg PO DAILY 01/31/25 Unknown History montelukast 10 mg tablet 10 mg PO QHS allergies 01/31/25 02/24/25 History simvastatin 40 mg tablet 40 mg PO QHS 01/31/25 Unknown History omeprazole 40 mg capsule,delayed 40 mg PO QDAY #30 caps 02/08/25 Unknown Rx release sucralfate 1 gram tablet 1 g PO QACHS #56 tabs 02/14/25 02/24/25 Rx oxycodone 5 mg tablet 5 mg PO Q6H PRN pain 7 days #14 02/25/25 Unknown Rx tabs Allergy/AdvReac Type Severity Reaction Status Date / Time No Known Allergies Allergy Verified 02/25/25 06:24 Family History Mother Diabetes Brother Diabetes Colon cancer Surgical History Hx of laparoscopy Status post appendectomy Social History Smoking Status: Light Smoker (<10/day) quit status: not considering quitting Vital Signs Vital Signs Vital Signs: 02/25/25 06:26 02/25/25 06:28 02/25/25 07:10 Temperature 97.3 F L 97.3 F L Temperature Source Temporal Pulse Rate 64 64 Respiratory Rate 20 H 20 H Respiratory Pattern Normal Blood Pressure 144/85 H 144/85 H Blood Pressure Mean 104 Blood Pressure Source Monitor Blood Pressure Position Semi-Fowlers Blood Pressure Location Right Arm Pulse Ox 95 95 Oxygen Delivery Method Room Air Weight Weight: 104.5 kg Body Mass Index (BMI) 33.0
--- NOTE | 2025-02-25 09:44 | PCM.OPRPT ---
Operative Report (Standard) Operative Information Date of Procedure: 02/25/25 Pre-Operative Diagnosis: Right nonfunctioning kidney hydroureteronephrosis Post-Operative Diagnosis: The same Surgery/Procedure Performed: Laparoscopic robotic assisted right nephro ureterectomy attraction attendant: No Type of Anesthesia: General RN Documented Start/Stop Times: Operation Date: 02/25/25 07:30 Case Time Into Pre-Op 02/25/25 05:59 Out of Pre-Op 02/25/25 07:26 Anesthesia Start 02/25/25 07:33 Into Room 02/25/25 07:33 Procedure Start 02/25/25 07:58 Procedure Start Time: 07:33 Procedure Stop Time: 09:45 Select all DRAINS/GRAFTS/IMPLANTS that apply: Drains Drain details: Osborn catheter Estimated Blood Loss: 25cc Specimen collected: Yes Description of specimen(s) removed: Right nephrectomy for your ureter a specimen Description of surgery: Patient was taken back to the operative room with us with duction of anesthesia he was placed supine on the table Osborn catheter was placed he was intubated he was then transferred to full flank position and then the abdomen was shaved prepped and draped in usual fashion marked out my incision second to have a camera port right arm port left arm port a second left arm port and a air seal port suction for the phlebotomist lab assistant I then docked the robot we placed our instruments inside the abdomen and we started with the dissection and he had a extensive adhesions from prior appendectomy I did dissect the colon off the lateral sidewall I then reflected the colon off the kidney dissecting the colon off the kidney very carefully I then identified the liver it was adherent to the kidney the kidney was super swollen with fluid EXTR extremely large make it quite difficult I then had to dissect out the the liver off the kidney completely all the way up until cephalad and then were freed up the liver off the upper attachments allow the liver to retract off the kidney. I then dissected the colon off the kidney completely I then identified the ureter the ureter was extremely large I went into the ureter and elevated up the ureter and the kidney I then used the fourth on the hold up the kidney and then dissected very carefully underneath the kidney until I reached the renal vein renal vein was identified 2 clips down 1 clip up and was transected and then the branching renal artery was identified 2 clips down 1 clip up and then was transected I then did not take the adrenal gland I dissected cephalad until I freed up the kidney from the liver attachments all the way up to the liver spinal ligament and then this was taken down and then we took down the kidney from the lateral sidewall working her way down then at this point we made a purse incision in the kidney then placed the suction port into the kidney made an small incision in the kidney and then dry sucked out all the fluid from the kidney we sucked out probably 900 cc of urine from the kidney and then at this point that this decompressed nicely and then I traced the ureter down as far as possible to the bladder but I did not open the bladder and then transected the ureter we try to place a clip to parse the ureter but it ureter was so large the clip would not go across the ureter. So then transected the ureter and then stitched the ureter closed with a 3-0 Vicryl to close the ureter so would prevent refluxing that at this point the kidney and ureter was placed in an Endo Catch bag the robot was undocked I then scrubbed in and assisted opened up the lower port incision site and we extracted the kidney from the lower port and extraction site. We then closed the extraction site with 1-0 Vicryl stitches interrupted we then closed the camera port and the air seal port and then all the ports were removed under visualization minimal bleeding during the entire case 25 cc and then we closed all the subcuticular stitches with 4-0 Monocryl dressings and bandages were placed the patient is currently being reversed from his anesthetic and currently stable and being taken the PACU. Surgical Findings: Dilated right ureter and and kidney Complications Complications: No Admit VTE Documentation VTE Present on Admission: No VTE Mechan Device Prophylaxis: SCD's VTE Pharm Prophylaxis ordered?: No
--- NOTE | 2025-02-25 10:05 | PCM.POST.ANE ---
Anesthesia: Postop Eval I Current Vital Signs Temperature: 97.6 F Pulse Rate: 66 Blood Pressure: 125/71 Respiratory Rate: 16 Pulse Ox: 95 Oxygen Delivery Method: Room Air Assessment Airway patent: Yes Spontaneous unlabored respirations: Yes Mental status: Awake and Calm nausea: No Vomiting: No Anesthesia Complication: No Fluid Hydration Crystalloid volume administer (ml): 1,600 Total IV fluid infused: 1,600 Progress Note Anesthesia document: Postop Eval 1 completed: Yes
--- NOTE | 2025-02-25 11:11 | POSTOPAN2_ITS ---
Anesthesia Postop Eval I Sum Postop Eval Completion status Anesthesia document: Postop Eval 1 completed: Yes Anesthesia Postop Eval I Summary Anesthesia Postop Eval I Summary: Anesthesia Postop Eval I: Assessment Summary Airway patent Yes 02/25/25 10:06 [email or web address] Spontaneous unlabored Yes 02/25/25 10:06 [email or web address] respirations Mental status Awake,Calm 02/25/25 10:06 [email or web address] nausea No 02/25/25 10:06 [email or web address] Vomiting No 02/25/25 10:06 [email or web address] Anesthesia Postop Eval I: Fluid Summary Crystalloid volume administer 1,600 02/25/25 10:06 [email or web address] (ml) Colloids volume administered ( ml) Blood Product volume administered (ml) Total IV fluid infused 1,600 02/25/25 10:06 [email or web address] Anesthesia Postop Eval I: Summary Notes Anesthesia Complication No 02/25/25 10:06 [email or web address] Anesthesia Complication Comment: Post-operative progress note Anesthesia: Postop Eval II Evaluation Mental status: Awake Pain Level: 0 nausea: No Vomiting: No
--- NOTE | 2025-02-25 11:11 | PCM.POSTANE2 ---
Anesthesia Postop Eval I Sum Postop Eval Completion status Anesthesia document: Postop Eval 1 completed: Yes Anesthesia Postop Eval I Summary Anesthesia Postop Eval I Summary: Anesthesia Postop Eval I: Assessment Summary Airway patent Yes 02/25/25 10:06 [email or web address] Spontaneous unlabored Yes 02/25/25 10:06 [email or web address] respirations Mental status Awake,Calm 02/25/25 10:06 [email or web address] nausea No 02/25/25 10:06 [email or web address] Vomiting No 02/25/25 10:06 [email or web address] Anesthesia Postop Eval I: Fluid Summary Crystalloid volume administer 1,600 02/25/25 10:06 [email or web address] (ml) Colloids volume administered ( ml) Blood Product volume administered (ml) Total IV fluid infused 1,600 02/25/25 10:06 [email or web address] Anesthesia Postop Eval I: Summary Notes Anesthesia Complication No 02/25/25 10:06 [email or web address] Anesthesia Complication Comment: Post-operative progress note Anesthesia: Postop Eval II Evaluation Mental status: Awake Pain Level: 0 nausea: No Vomiting: No
[2025-02-25] MEDS: 0.9% Normal Saline (1000mL) 1,000 ML 125 ML IV ×2 (11:20→19:48)
[2025-02-25] MEDS: Docusate Sodium 100 MG Capsule 200 MG PO ×2 (11:45→21:43)
[2025-02-25] MEDS: Sucralfate 1 GM Tablet PO ×3 (11:45→21:43)
[2025-02-25] MEDS: oxyCODONE 5 MG Tablet PO (19:29)
[2025-02-25] MEDS: Acetaminophen 325 MG Tablet 650 MG PO (19:29)
[2025-02-25] MEDS: Atorvastatin Calcium 20 MG Tablet PO (21:43)
[2025-02-25] MEDS: Montelukast 10 MG Tablet PO (21:43)
[2025-02-25] MEDS: 0.9% Saline Lock 10 ML Syringe IV (23:49)
[2025-02-26 03:35] VITALS: BP 104/57; PULSE 65; RESP 16; TEMP 37.1; O2SAT 92
[2025-02-26] MEDS: 0.9% Normal Saline (1000mL) 1,000 ML 125 ML IV ×3 (03:39→19:44)
[2025-02-26 06:00] VITALS: BP 105/50; PULSE 66; RESP 16; TEMP 36.5; O2SAT 93
[2025-02-26] MEDS: Sucralfate 1 GM Tablet PO ×2 (06:00→22:49)
[2025-02-26 07:15] LABS: Absolute Lymphocyte Count 1.15 X10^3/uL (0.83-4.51); Absolute Neutrophil Count 8.1 X10^3/uL (2.0-7.7); Basophil# 0.02 X10^3/uL; Basophil% 0.2 % (0-1); Eosinophil# 0.01 X10^3/uL; Eosinophils% 0.1 % (0-5); Hemoglobin 11.2 g/dL (13.0-16.5); Lymphocyte # 1.15 X10^3/ul (0.83-4.51); Mean Corp Hgb Conc 32.9 g/dL (32-36); Mean Corpuscular Hgb 28.4 pg (27.0-32.0); Mean Corpuscular Volume 86.3 fL (80-94); Mean Platelet Vol. 11.3 fl (6.2-12.0); Monocyte# 1.19 X10^3/uL; Monocyte% 11.4 % (0-10); NRBC Flagged by Analyzer 0 % (0-5); Neutrophil # 8.05 X10^3/uL (2.7-7.7); Neutrophil % 76.9 % (47-70); Platelet Count 153 K/mm3 (150-450); RBC Distribution Width CV 13.2 % (11.6-14.6); RBC Distribution Width SD 41.4 fl (35.1-43.9); Red Blood Count 3.94 M/mm3 (4.6-6.2); White Blood Count 10.5 K/mm3 (4.4-11.0)
[2025-02-26 07:43] LABS: Anion Gap 10 (5-15); BUN 15 mg/dL (4-19); BUN/Creat Ratio 9.7 RATIO (10-20); Carbon Dioxide 20.2 mmol/L (21.0-32.0); Chloride 109 mmol/L (98-108); Creatinine, Serum 1.54 mg/dL (0.70-1.20); EST Glomerular Filtration Rate 48 (>60); Glucose 144 mg/dL (70-99); Potassium 4.2 mmol/L (3.3-5.1); Sodium Level 139 mmol/L (133-145)
--- NOTE | 2025-02-26 09:03 | PCM.PN.GU ---
Subjective Subjective s/p right nephro U doing well d/c lux home after lunch Objective Data Objective Data Vital Signs: Vital Signs Temp Pulse Resp BP Pulse Ox O2 Del Method O2 Flow Rate 97.7 F L 66 16 105/50 L 93 Room Air 2 02/26/25 06:00 02/26/25 06:00 02/26/25 06:00 02/26/25 06:00 02/26/25 06:00 02/26/25 06:00 02/25/25 15:29 Oxygen Flow Rate (L/min) 2 Oxygen Delivery Method Room Air Weight: 104.5 kg Body Mass Index (BMI) 33.0 Intake & Output: Intake and Output for Last 24 Hours 02/24/25 02/25/25 02/26/25 23:59 23:59 23:59 Intake Total 3670 / 3670 2081.25 / 2081.25 Output Total 2380 / 2380 1225 / 1225 Balance 1290 / 1290 856.25 / 856.25 Lab / Micro Data 02/26/25 05:40 02/26/25 05:40 Labs: Laboratory Results - last 24 hr 02/26/25 05:40: WBC 10.5, RBC 3.94 L, Hgb 11.2 L, Hct 34.0 L, MCV 86.3, MCH 28.4, MCHC 32.9, RDW Std Deviation 41.4, RDW Coeff of Mildred 13.2, Plt Count 153, MPV 11.3, Immature Gran % (Auto) 0.400, Neut % (Auto) 76.9 H, Lymph % (Auto) 11.0 L, [place] % (Auto) 11.4 H, Eos % (Auto) 0.1, Baso % (Auto) 0.2, Absolute Neuts (auto) 8.1 H, Absolute Lymphs (auto) 1.15, Nucleated RBC % 0, Sodium 139, Potassium 4.2, Chloride 109 H, Carbon Dioxide 20.2 L, Anion Gap 10, BUN 15, Creatinine 1.54 H, Estim Creat Clear Calc 52.50, Est GFR (MDRD) Non-Af 48 L, BUN/Creatinine Ratio 9.7 L, Glucose 144 H, Calcium 8.0
[2025-02-26] MEDS: Finasteride 5 MG Tablet PO (10:08)
[2025-02-26] MEDS: Docusate Sodium 100 MG Capsule 200 MG PO ×2 (10:08→22:49)
[2025-02-26] MEDS: Pantoprazole Sodium 40 MG Tablet PO (10:08)
[2025-02-26 10:13] VITALS: BP 125/62; PULSE 66; RESP 16; TEMP 36.8; O2SAT 95
[2025-02-26] MEDS: oxyCODONE 5 MG Tablet PO (11:26)
--- NOTE | 2025-02-26 11:33 | NURSING ---
Patient called out and said he was in severe pain in his abd and also right shoulder area. 10mg oxyir given. bladder scanned as well for only 49ml. He has voided 150ml since catheter removal. encouraged patient to ambulate/sit in chair. He said he wants to wait for the pain medication to start to work before he moves around. Will continue to monitor.
--- NOTE | 2025-02-26 13:07 | NURSING ---
Ambulated in halls. Still painful, but getting better. patient thinks he needs to have a bm. now in restroom. will cont. to monitor.
--- NOTE | 2025-02-26 13:24 | NURSING ---
Continues to be painful. Bladder scanned for about 40ml, but picture was not clear. Dr. Romero paged.
[2025-02-26] MEDS: Ketorolac 15 MG/ML Vial IM (13:52)
[2025-02-26] MEDS: Heparin Injection (Vial) 5,000 UNIT/ML VIAL 5000 UNIT SC ×2 (13:53→22:49)
[2025-02-26 19:00] VITALS: O2SAT 93
[2025-02-26] MEDS: Tamsulosin HCl 0.4 MG Capsule PO (22:49)
[2025-02-26] MEDS: Atorvastatin Calcium 20 MG Tablet PO (22:49)
[2025-02-26] MEDS: Montelukast 10 MG Tablet PO (22:49)
[2025-02-26 23:00] VITALS: BP 139/77; PULSE 79; RESP 18; TEMP 36.6; O2SAT 93
[2025-02-27 01:00] VITALS: O2SAT 93
[2025-02-27] MEDS: 0.9% Normal Saline (1000mL) 1,000 ML 125 ML IV (03:23)
[2025-02-27 05:00] VITALS: BP 135/75; PULSE 68; RESP 14; TEMP 36.8; O2SAT 93
[2025-02-27] MEDS: Heparin Injection (Vial) 5,000 UNIT/ML VIAL 5000 UNIT SC (05:16)
[2025-02-27] MEDS: Sucralfate 1 GM Tablet PO ×2 (05:17→11:01)
[2025-02-27 06:07] LABS: Absolute Lymphocyte Count 1.54 X10^3/uL (0.83-4.51); Absolute Neutrophil Count 5.1 X10^3/uL (2.0-7.7); Basophil# 0.03 X10^3/uL; Basophil% 0.4 % (0-1); Eosinophil# 0.14 X10^3/uL; Eosinophils% 1.8 % (0-5); Hematocrit 32.7 % (40-54); Hemoglobin 10.9 g/dL (13.0-16.5); Lymphocyte # 1.54 X10^3/ul (0.83-4.51); Lymphocyte % 19.8 % (19-41); Mean Corp Hgb Conc 33.3 g/dL (32-36); Mean Corpuscular Hgb 28.3 pg (27.0-32.0); Mean Corpuscular Volume 84.9 fL (80-94); Mean Platelet Vol. 11.2 fl (6.2-12.0); Monocyte# 0.95 X10^3/uL; Monocyte% 12.2 % (0-10); NRBC Flagged by Analyzer 0 % (0-5); Neutrophil # 5.07 X10^3/uL (2.7-7.7); Neutrophil % 65.4 % (47-70); Platelet Count 129 K/mm3 (150-450); RBC Distribution Width CV 13.2 % (11.6-14.6); RBC Distribution Width SD 40.9 fl (35.1-43.9); Red Blood Count 3.85 M/mm3 (4.6-6.2); White Blood Count 7.8 K/mm3 (4.4-11.0)
[2025-02-27 07:01] LABS: Anion Gap 8 (5-15); BUN 12 mg/dL (4-19); BUN/Creat Ratio 8.4 RATIO (10-20); Calcium,Total 7.9 mg/dL (7.6-11.0); Carbon Dioxide 20.5 mmol/L (21.0-32.0); Chloride 112 mmol/L (98-108); Creatinine, Serum 1.48 mg/dL (0.70-1.20); EST Glomerular Filtration Rate 50 (>60); Estimated Creatinine Clearance 54.62 ml/min (50-250); Glucose 118 mg/dL (70-99); Potassium 3.7 mmol/L (3.3-5.1); Sodium Level 141 mmol/L (133-145)
[2025-02-27 07:21] VITALS: O2SAT 92
[2025-02-27 08:01] VITALS: BP 138/73; PULSE 71; RESP 14; TEMP 36.9; O2SAT 94
[2025-02-27] MEDS: Docusate Sodium 100 MG Capsule 200 MG PO (08:12)
[2025-02-27] MEDS: Pantoprazole Sodium 40 MG Tablet PO (08:13)
[2025-02-27] MEDS: Finasteride 5 MG Tablet PO (08:13)
[2025-02-27] MEDS: oxyCODONE 5 MG Tablet PO ×2 (08:20→14:13)
[2025-02-27] MEDS: Acetaminophen 325 MG Tablet 650 MG PO ×2 (08:21→14:11)
--- NOTE | 2025-02-27 09:51 | PN.URO_ITS ---
Subjective Subjective s/p right nephro U anyi reg diet + BMs could not void yesturday add flomax d/c lux today, if can void okay then home if still can't void or painful then home with lux to leg bag Objective Data Objective Data Vital Signs: Vital Signs Temp Pulse Resp BP Pulse Ox O2 Del Method O2 Flow Rate 98.4 F 71 14 138/73 H 94 Nasal Cannula 2 02/27/25 08:01 02/27/25 08:01 02/27/25 08:01 02/27/25 08:01 02/27/25 08:01 02/27/25 08:05 02/27/25 08:05 Oxygen Flow Rate (L/min) 2 Oxygen Delivery Method Nasal Cannula Weight: 104.5 kg Body Mass Index (BMI) 33.0 Intake & Output: Intake and Output for Last 24 Hours 02/25/25 02/26/25 02/27/25 23:59 23:59 23:59 Intake Total 3670 / 3670 4858.33 / 4858.33 956.25 / 956.25 Output Total 2380 / 2380 2125 / 2125 1800 / 1800 Balance 1290 / 1290 2733.33 / 2733.33 -843.75 / -843.75 Lab / Micro Data 02/27/25 05:09 02/27/25 05:09 Labs: Laboratory Results - last 24 hr 02/27/25 05:09: WBC 7.8, RBC 3.85 L, Hgb 10.9 L, Hct 32.7 L, MCV 84.9, MCH 28.3, MCHC 33.3, RDW Std Deviation 40.9, RDW Coeff of Mildred 13.2, Plt Count 129 L, MPV 11.2, Immature Gran % (Auto) 0.400, Neut % (Auto) 65.4, Lymph % (Auto) 19.8, M francisco % (Auto) 12.2 H, Eos % (Auto) 1.8, Baso % (Auto) 0.4, Absolute Neuts (auto) 5.1, Absolute Lymphs (auto) 1.54, Nucleated RBC % 0, Sodium 141, Potassium 3.7, Chloride 112 H, Carbon Dioxide 20.5 L, Anion Gap 8, BUN 12, Creatinine 1.48 H, Estim Creat Clear Calc 54.62, Est GFR (MDRD) Non-Af 50 L, BUN/Creatinine Ratio 8.4 L, Glucose 118 H, Calcium 7.9
== END 2025-02-27 14:46 | disposition home or self-care (01) ==
LOC: SDC 10:06 → MS3 10:06
PROVIDERS: Admitting Provider Urology; PCP Internal Medicine; Referring Provider Urology; Visit Provider Urology
PROC: (CPT 50546; principal; 2025-02-25 07:10)
DX: N26.1 Atrophy of kidney (terminal) (principal); N13.39 Other hydronephrosis; N28.82 Megaloureter; N40.1 Benign prostatic hyperplasia with lower urinary tract symptoms; R35.1 Nocturia; R32 Unspecified urinary incontinence; E78.5 Hyperlipidemia, unspecified; K21.9 Gastro-esophageal reflux disease without esophagitis; F17.200 Nicotine dependence, unspecified, uncomplicated; Z79.899 Other long term (current) drug therapy; Q62.8 Other congenital malformations of ureter
CPT/HCPCS: 50548; S2900; 00862; 36415; 80048; 85025; 88307; 93005; 94668; 96361; 96372; 96374; 99221; 99406; A4216; G0378; J2405

== ENCOUNTER 2025-04-25 21:05 | Inpatient (IN) | payer MEDICARE, OTHER, SELFPAY ==
[2025-04-25 21:06] VITALS: BP 119/67; PULSE 73; RESP 16; TEMP 36.4; O2SAT 91; BMI 32.5
[2025-04-25 21:47] LABS: Absolute Lymphocyte Count 1.15 X10^3/uL (0.83-4.51); Absolute Neutrophil Count 8.3 X10^3/uL (2.0-7.7); Basophil# 0.04 X10^3/uL; Basophil% 0.4 % (0-1); Eosinophil# 0.08 X10^3/uL; Eosinophils% 0.7 % (0-5); Hematocrit 47.8 % (40-54); Hemoglobin 15.8 g/dL (13.0-16.5); Lymphocyte # 1.15 X10^3/ul (0.83-4.51); Lymphocyte % 10.5 % (19-41); Mean Corp Hgb Conc 33.1 g/dL (32-36); Mean Corpuscular Hgb 27.9 pg (27.0-32.0); Mean Corpuscular Volume 84.5 fL (80-94); Mean Platelet Vol. 11.1 fl (6.2-12.0); Monocyte# 1.28 X10^3/uL; Monocyte% 11.7 % (0-10); NRBC Flagged by Analyzer 0 % (0-5); Neutrophil # 8.34 X10^3/uL (2.7-7.7); Neutrophil % 76.3 % (47-70); Platelet Count 197 K/mm3 (150-450); RBC Distribution Width CV 13.9 % (11.6-14.6); RBC Distribution Width SD 42.5 fl (35.1-43.9); Red Blood Count 5.66 M/mm3 (4.6-6.2); White Blood Count 10.9 K/mm3 (4.4-11.0)
--- NOTE | 2025-04-25 22:10 | US_ITS ---
PROCEDURE: GALLBLADDER 04/25/2025 REASON FOR EXAM: RUQ PAIN COMPARISON: Right upper quadrant ultrasound and CT abdomen pelvis 01/31/2025. FINDINGS: Liver: Diffusely echogenic suggesting fatty infiltration. Normal in size measuring 14.5 cm. The main portal vein is patent with normal directional flow at midline. Gallbladder: A single echogenic gallstone is identified. No gallbladder wall thickening, pericholecystic fluid or tenderness. Common bile duct: Normal measuring 0.4 cm. Pancreas: Obscured by bowel gas. Other: Prior right nephrectomy. US/Gallbladder IMPRESSION: Cholelithiasis without evidence of acute cholecystitis. Reading Location: [id number]
[2025-04-25] MEDS: 0.9% Normal Saline (1000mL) 1,000 ML 999 ML IV (22:17)
[2025-04-25] MEDS: Ondansetron 4 MG/2 ML Vial IV (22:17)
[2025-04-25] MEDS: Morphine 4 MG/ML Syringe IV (22:17)
--- NOTE | 2025-04-25 22:22 | EX.ED.DYSGE1 ---
HPI History of Present Illness Chief Complaint: Abd Pain Narrative Narrative: Patient is a 74-year-old male with past medical history of chronic kidney disease status post right nephrectomy, hyperlipidemia, alcohol use who presented to the emergency department chief complaint of concern that his gallbladder is being obstructed by stone. He states that on Friday he had significant pain he went to a freestanding ER in [place] and had a CT scan that showed a large stone at that point in time. He states that as the weekend progressed and into today's pain significantly worsened prompting him to come here for further evaluation management. He states that he has followed with Dr. Richmond in the past and states that he has a upcoming appointment on Friday with her but does not feel that he can make it till then. He states that he was post have his gallbladder removed in the past but the right kidney was not functioning appropriately and they wanted to have that kidney removed prior to proceeding with any other surgeries. [facility] Medical History Wears glasses Wears dentures Wears partial dentures Alcohol use Loss of consciousness Dietary restriction Gastric reflux Smoker Chronic cough Hyperlipemia Kidney disease Home Medications ?Medication ?Instructions ?Recorded ?Last Taken ?Type multivitamin with folic acid 400 1 tab PO DAILY 06/12/15 02/04/25 History mcg tablet (Thera) dutasteride 0.5 mg capsule 0.5 mg PO DAILY 01/31/25 Unknown History montelukast 10 mg tablet 10 mg PO QHS allergies 01/31/25 02/24/25 History simvastatin 40 mg tablet 40 mg PO QHS 01/31/25 Unknown History omeprazole 40 mg capsule,delayed 40 mg PO QDAY #30 caps 02/08/25 Unknown Rx release oxycodone 5 mg tablet 5 mg PO Q6H PRN pain 7 days #14 02/25/25 Unknown Rx tabs tamsulosin 0.4 mg capsule (Flomax) 0.4 mg PO DAILY #30 caps 02/27/25 Unknown Rx Allergy/AdvReac Type Severity Reaction Status Date / Time No Known Allergies Allergy Verified 04/25/25 21:09 Family History Mother Diabetes Brother Diabetes Colon cancer Surgical History Hx of laparoscopy Status post appendectomy Social History Smoking Status: Light Smoker (<10/day) quit status: not considering quitting ROS ROS ED ROS Narrative Constitutional: Denies fevers, chills, headaches Cardiovascular: Denies chest pain or palpitations Respiratory: Denies shortness of breath Abdomen: Complains of abdominal pain as noted above : Denies urinary symptoms Neurological: Denies numbness, aches, tingling Musculoskeletal: Denies back pain Skin: Denies rashes or lesions EXAM Physical Exam Narrative Exam Narrative: General: Patient lying in bed did appear to be uncomfortable secondary to his abdominal pain Head: Atraumatic, normocephalic Eyes: PERRL bilaterally, EOMI bilaterally, no conjunctival injection noted Neck: Soft, supple, trachea midline Cardiovascular: Regular rate and rhythm Respiratory: Clear to auscultation bilaterally Abdomen: Soft, nondistended, tender to palpation in the right upper quadrant positive Palomino sign no rebound or guarding on exam Extremities: +5/5 strength noted in the bilateral upper and lower extremities Neurological: Patient follow commands knew that he was at [facility] years 2024 Skin: Warm, dry, intact patient does appear to be slightly jaundiced Const Vital Signs: 04/25/25 21:06 04/25/25 23:05 04/25/25 23:48 Temperature 97.5 F L 98.6 F Temperature Source Oral Pulse Rate 73 65 65 Respiratory Rate 16 18 Blood Pressure 119/67 119/62 Blood Pressure Mean 84 81 Pulse Ox 91 92 Oxygen Delivery Method Room Air MDM MDM MDM Narrative Medical decision making narrative: Patient is a 74-year-old male who presents to the emerged from chief complaint of abdominal pain and concern for cholecystitis. On the differential diagnosis includes but not limited to acute cholecystitis, pancreatitis, bowel obstruction, cholelithiasis, choledocholithiasis, cholangitis. Once workup is obtained reviewed he will be reevaluated. Patient be given IV fluids morphine Zofran Patient CBC reviewed showed no evidence leukocytosis white blood count normal at 10.9, he was 15.8, platelet count was 197. Patient sodium is 140, potassium normal 3.9, creatinine was 1.49 this appears to be around his baseline as he has underlying chronic kidney disease. Patient total bilirubin elevated at 5.33 AST and ALT are 46 and 835 respectively alk phosphatase elevated to 28, lipase greater than 3000. Patient's gallbladder ultrasound reviewed which showed cholelithiasis without evidence of acute cholecystitis. Discussed case with on-call general surgeon Dr. Arnold who states that he likely needs ERCP and later on they will discuss about taking his gallbladder out. Called and discussed with Dr. Villatoro who states that he will take care of the patient tomorrow. Will discuss case with hospitalist for admission. Discussed case with admitting physician Dr. Mora who accept patient for admission. Patient notified is agreeable to plan all question concerns answered Lab Data Labs: Laboratory Results - last 24 hr 04/25/25 21:16 WBC 10.9 RBC 5.66 Hgb 15.8 Hct 47.8 MCV 84.5 MCH 27.9 MCHC 33.1 RDW Std Deviation 42.5 RDW Coeff of Mildred 13.9 Plt Count 197 MPV 11.1 Immature Gran % (Auto) 0.400 Neut % (Auto) 76.3 H Lymph % (Auto) 10.5 L [place] % (Auto) 11.7 H Eos % (Auto) 0.7 Baso % (Auto) 0.4 Absolute Neuts (auto) 8.3 H Absolute Lymphs (auto) 1.15 Nucleated RBC % 0 Sodium 140 Potassium 3.9 Chloride 104 Carbon Dioxide 22.9 Anion Gap 13 BUN 13 Creatinine 1.49 H Estim Creat Clear Calc 53.81 Est GFR (MDRD) Non-Af 50 L BUN/Creatinine Ratio 8.7 L Glucose 162 H Calcium 9.7 Total Bilirubin 5.33 H AST 486 H ALT 835 H Alkaline Phosphatase 228 H Total Protein 7.4 Albumin 4.3 Globulin 3.1 Albumin/Globulin Ratio 1.4 Lipase > 3000 H Radiography Diagnostic Testing: Clinical Impression(s) from Imaging Studies Gallbladder Ultrasound 04/25/25 22:10 IMPRESSION: Cholelithiasis without evidence of acute cholecystitis. Reading Location: [id number] Discharge Plan Triage Chief Complaint: Abd Pain ED Provider: Konstantin Bradford Dx/Rx/DC Orders Clinical Impression: Transaminitis, Pancreatitis, Cholelithiasis, Jaundice Prescriptions: No Action omeprazole 40 mg capsule,delayed release(DR/EC) 40 mg PO QDAY Qty: 30 3RF Rx Instructions: swallow whole; do not crush, chew, dissolve, cut, break multivitamin with folic acid [Thera] 1 TABLET tablet 1 tab PO DAILY simvastatin 40 mg tablet 40 mg PO QHS montelukast 10 mg tablet 10 mg PO QHS dutasteride 0.5 mg capsule 0.5 mg PO DAILY oxycodone 5 mg tablet 5 mg PO Q6H PRN (Reason: pain) 7 Days Qty: 14 0RF tamsulosin [Flomax] 0.4 mg capsule 0.4 mg PO DAILY Qty: 30 1RF Primary Care Provider: Erwin Garcia Referrals: Erwin Garcia MD [Primary Care Provider] - Print Language: Occitan Disposition Disposition: Acute Care Hospital [facility]
[2025-04-25 22:34] LABS: ALB/GLOB Ratio 1.4 RATIO (0.9-2.4); AST(SGOT) 486 U/L (<=37); Alanine Aminotransfer ALT/SGPT 835 U/L (<=46); Albumin, Serum 4.3 g/dL (3.4-4.8); Alkaline Phosphatase 228 U/L (40-129); Anion Gap 13 (5-15); BUN 13 mg/dL (4-19); BUN/Creat Ratio 8.7 RATIO (10-20); Calcium,Total 9.7 mg/dL (7.6-11.0); Carbon Dioxide 22.9 mmol/L (21.0-32.0); Chloride 104 mmol/L (98-108); Creatinine, Serum 1.49 mg/dL (0.70-1.20); EST Glomerular Filtration Rate 50 (>60); Estimated Creatinine Clearance 53.81 ml/min (50-250); Globulin 3.1 g/dL (2.2-4.2); Glucose 162 mg/dL (70-99); Lipase > 3000 U/L (13-75); Potassium 3.9 mmol/L (3.3-5.1); Protein, Total 7.4 g/dL (5.9-8.4); Sodium Level 140 mmol/L (133-145); Total Bilirubin 5.33 mg/dL (0.00-1.30)
[2025-04-25 23:05] VITALS: PULSE 65
[2025-04-25 23:48] VITALS: BP 119/62; PULSE 65; RESP 18; TEMP 37; O2SAT 92
--- NOTE | 2025-04-25 23:55 | HP.PCM_ITS ---
[facility] - [facility] Date of Service: 04/25/25 Chief Complaint: Acute abdominal pain [facility] Narrative HOLLIE POWERS, is a 74 M who presents to the emergency room with chief complaint of abdominal pain. Patient had similar episode of abdominal pain was seen at a freestanding urgent care and had a CT scan done which showed cholelithiasis and he was discharged home. The pain is subsequently become more severe and he came to the emergency room for evaluation. He was previously scheduled to see his surgeon on Friday to plan for cholecystectomy but was unable to wait for that appointment due to pain at this time. Ultrasound done today shows gallstone, lipase was greater than 3000, total bilirubin was elevated 5.3, AST 486, ALT 835, alk phos 228 CBC was within normal limits. 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 Patient also has a history of alcohol use and drinks 2-3 beers a day but denies having had withdrawal symptoms in the past and has gone periods of time without drinking. Patient will be admitted to general medical floor, made n.p.o. with IV fluids and consult to Dr. Villatoro for ERCP and Dr. Arnold for surgical consult. [facility] Medical History Wears glasses Wears dentures Wears partial dentures Alcohol use Loss of consciousness Dietary restriction Gastric reflux Smoker Chronic cough Hyperlipemia Kidney disease Home Medications ?Medication ?Instructions ?Recorded ?Last Taken ?Type multivitamin with folic acid 400 1 tab PO DAILY 02/04/25 History mcg tablet (Thera) dutasteride 0.5 mg capsule 0.5 mg PO DAILY 01/31/25 Un known History montelukast 10 mg tablet 10 mg PO QHS allergies 01/3102/24/25 History simvastatin 40 mg tablet 40 mg PO QHS 01/31/25 Unknow n History omeprazole 40 mg capsule,delayed 40 mg PO QDAY #30 cap s 02/08/25 Unknown Rx release oxycodone 5 mg tablet 5 mg PO Q6H PRN pain 7 days #14 02/25/25 Unknown Rx tabs tamsulosin 0.4 mg capsule (Flomax) 0.4 mg PO DAILY #30 caps 02/27/25 Unknown Rx Allergy/AdvReac Type Severity Reaction Status Date / Time No Known Allergies Allergy Verified 04/25/25 21:09 Family History Mother Diabetes Brother Diabetes Colon cancer Surgical History Hx of laparoscopy Status post appendectomy Social History Smoking Status: Light Smoker (<10/day) quit status: not considering quitting ROS Constitutional Constitutional: Denies chills or fever(s) Eyes Eyes: Denies blurry vision ENT HEENT: Denies abnormal hearing Cardiovascular Cardiovascular: Denies chest pain Respiratory/Chest Respiratory/Chest: Denies shortness of breath at rest Gastrointestinal Gastrointestinal: Reports abdominal pain and nausea Genitourinary Genitourinary: Denies dysuria Musculoskeletal Musculoskeletal: Denies back pain Integumentary Integumentary: Reports jaundice Neurologic Neurologic: Denies abnormal gait Psychiatric Psychiatric: Denies anxiety Vital Signs Vital Signs Vital Signs: 04/25/25 21:06 04/25/25 23:05 04/25/25 23:48 Temperature 97.5 F L 98.6 F Temperature Source Oral Pulse Rate 73 65 65 Respiratory Rate 16 18 Blood Pressure 119/67 119/62 Blood Pressure Mean 84 81 Pulse Ox 91 92 Oxygen Delivery Method Room Air Weight Weight: 226 lb 8 oz Body Mass Index (BMI) 32.5 Physical Exam Const oriented x3 General Appearance: cooperative and well developed HEENT normocephalic and head/scalp atraumatic Eyes PERRL Neck no lymphadenopathy Lymph Lymphatic: no lymphadenopathy noted Resp normal respiratory effort, normal air movement and clear to auscultation bilaterally Cardio regular rate, regular rhythm, S1 normal heart sound and S2 normal heart sound GI Inspection: abdominal distention Palpation: tender epigastric and RUQ Extremity normal capillary refill Skin General Skin Exam: no breakdown Neuro no focal motor deficits and no sensory deficits noted Psych thought process normal, cooperative and affect normal Results Lab / Micro Data 04/25/25 21:16 04/25/25 21:16 Labs: Laboratory Results - last 24 hr 04/25/25 21:16: WBC 10.9, RBC 5.66, Hgb 15.8, Hct 47.8, MCV 84.5, MCH 27.9, MCHC 33.1, RDW Std Deviation 42.5, RDW Coeff of Mildred 13.9, Plt Count 197, MPV 11.1, Immature Gran % (Auto) 0.400, Neut % (Auto) 76.3 H, Lymph % (Auto) 10.5 L, Saline % (Auto) 11.7 H, Eos % (Auto) 0.7, Baso % (Auto) 0.4, Absolute Neuts (auto) 8.3 H, Absolute Lymphs (auto) 1.15, Nucleated RBC % 0, Sodium 140, Potassium 3.9, Chloride 104, Carbon Dioxide 22.9, Anion Gap 13, BUN 13, Creatinine 1.49 H, Estim Creat Clear Calc 53.81, Est GFR (MDRD) Non-Af 50 L, BUN/Creatinine Ratio 8.7 L, Glucose 162 H, Calcium 9.7, Total Bilirubin 5.33 H, AST 486 H, ALT 835 H, Alkaline Phosphatase 228 H, Total Protein 7.4, Albumin 4.3, Globulin 3.1, Albumin/Globulin Ratio 1.4, Lipase > 3000 H Imaging Radiology Impression Gallbladder Ultrasound 04/25/25 22:10 IMPRESSION: Cholelithiasis without evidence of acute cholecystitis. Reading Location: [id number] Assessment & Plan Assessment/Plan (1) Jaundice: (2) Cholelithiasis: (3) Pancreatitis: (4) Transaminitis: PLAN: Plan 1 gallstone pancreatitis?admit patient to general medical floor, IV morphine 4 mg every 2 hours as needed for pain, will add Zofran as needed for nausea symptoms as well. Consult foreign broadcast specialist Dr. Villatoro for possible ERCP and to general surgery for consult. Patient will be n.p.o. with IV normal saline at 150 cc/h, repeat CBC CMP and lipase in the a.m. 2. DVT prophylaxis?low molecular weight heparin 3. Smoking cessation encouraged 4. Alcohol use?patient denies withdrawal symptoms in the past we will monitor for signs of withdrawal Charges/Coding Visit Charges Inpatient E&M: 71189 Init Hosp L2
[2025-04-26] VITALS (18 sets, daily range): BP systolic 124–149; BP diastolic 56–71; PULSE 68–96; RESP 16–20; TEMP 36.6–37.1; O2SAT 85–99; BMI 32.3; BMI 32.8
--- OUTSIDE RECORDS SUMMARY | 2025-04-26 00:22 | XMS RPT_ITS | CCD ---
Author Organization [facility] Care Team Providers Care Senior Lead Developer Name Role Phone Erwin Garcia MD Primary Care Provider [phone] Ms. Trell Goldman Attending Sam otero Pending, Provider Primary Care Unavailable Erwin Garcia MD Primary Care Provider Erwin Garcia MD Primary Care Provider Erwin Garcia MD Primary Care Provider [phone] Lamine APRN.RIGHT OF WAY AGENT, Khadijah M Unavailable Dr. Rashi Lee DO Emergency Provider Jose CLARKE, Dr. Hood Primary Care Provider Dr. Elana Richmond MD Attending Provider Dr. Rashi Lee DO Attending Provider Dr. Rashi Lee DO Referring Provider Jose CLARKE, Dr. Hood Referring Provider Rika CLARKE, Dr. Lainez Attending Provider Nick CLARKE, Dr. Los Pfeiffer Referring Provider Nick CLARKE, Dr. Los Pfeiffer Admit Provider Nick CLARKE, Dr. Los Pfeiffer Attending Provider [phone] Erwin Garcia Primary Care Unavailable Erwin Garcia Referring Unavailable Elana Richmond Attending Unavailable Erwin Garcia Primary Care Unavailable Rashi Lee Attending Unavailable Erwin Garcia Primary Care Unavailable Los Romero Admitting Unavailable Nick, Los Pfeiffer Attending Unavailable Nick, Los Pfeiffer Referring Unavailable Garcia, Erwin Primary Care Unavailable Basilio, Elana Attending Unavailable Rashi Lee Referring Unavailable Migel Meléndez Attending Unavailable Garcia, Erwin Primary Care Unavailable Nick, Los Pfeiffer Referring Unavailable Garcia, Erwin Primary Care Unavailable Garcia, Erwin Referring Unavailable Robotham, Elana Attending Unavailable HARPSTER, ISAEL Referring Unavailable GARCIA, RIMA Primary Care Unavailable HARPSTER, ISAEL Attending Unavailable HARPSTER, ISAEL Referring Unavailable GARCIA, RIMA Primary Care Unavailable LAMINE, KHADIJAH M Referring Unavailable GARCIA, RIMA Primary Care Unavailable GARCIA, RIMA Attending Unavailable GARCIA, RIMA Primary Care Unavailable GARCIA, ERWIN SANTIAGO Primary Care Unavailable JUSTINA KIM Attending Unavailable Medications Current Medications Medication Drug Class(es) Dates Sig (Normalized) Sig (Original) acetaminophen 325 mg / HYDROcodone bitartrate 7.5 mg oral tablet (1 source) Opioid Agonist Start: 01-13-2024 End: 01-16-2024 take 1 tablet by mouth every six hours as needed for pain HYDROcodone-Aceta minophen (NORCO) 7.5-325 mg per tablet Indications: Acute pain of right knee Take 1 tablet by mouth every 6 hours as needed for pain for up to 3 days. 9 tablet 0 01/13/2024 01/16/2024 Active Comment on above: Take [address] [facility] every 6 hours as needed for pain for up to 3 days. dutasteride 0.5 mg oral capsule (20 sources) 5-alpha Reductase Inhibitor Start: 01-28-2022 End: 10-25-2024 take 1 capsule by mouth once daily dutasteride (Avodart) 0.5 mg capsule Take 1 capsule (0.5 mg) by mouth once daily. 12/22/2023 Active Comment on above: Take 1 capsule by [facility] once daily. ammonium lactate 120 mg/ml topical cream (1 source) Start: 03-18-2025 ammonium lactate (LAC-HYDRIN) 12 % cream Apply to affected area once daily. Dry skin. 03/18/2025 Active montelukast 10 mg oral tablet (20 sources) Leukotriene Receptor Antagonist Start: 01-21-2022 End: 07-08-2024 montelukast (Singulair) 10 mg tablet Take 1 tablet (10 mg) by mouth. 07/25/2023 Active Comment on above: Take 1 tablet by alicia th daily at bedtime. For allergies. multivit with min-folic acid 0.4 mg tablet (4 sources) multivit with min-folic acid 0.4 mg tablet once every 24 hours. Active multivit with mi n-folic acid 0.4 mg tablet once every 24 hours. 0 Active MULTIVITAMIN TAB (20 sources) Start: 03-17-2008 MULTIVITAMIN T AB Take one(1) tablet daily. 0 03/17/2008 Active Comment on above: Take one(1) tablet d aily. Multivitamin With Folic Acid (Thera) 1 TABLET tablet (3 sources) Start: 06-12-2015 take 1 tablet by mouth once daily Multivitamin With Folic Acid (Thera) 1 TABLET tablet Active 1 {tbl} PO DAILY June 12, 2015 12:00am Start: 06-12-2015 take 1 tablet by alicia th once daily Multivitamin With Folic Acid (Thera) 1 TABLET tablet Active 1 TABLET PO DAILY June 12, 2015 12:00am nitroglycerin 0.4 mg sublingual tablet (1 source) Nitrate Vasodilator Start: 04-23-2025 0.4 mg, sublingual, Every 5 min PRN, chest pain, Starting on 04/23/25 at 2218, For 3 doses, May administer up to 3 doses per episode. omeprazole 40 mg delayed release oral capsule (4 sources) Proton Pump Inhibitor Start: 01-31-2025 End: 02-08-2025 take 1 capsule by mouth once daily Omeprazole 40 mg capsule,delayed release(DR/EC) Active 40 mg PO daily February 08, 2025 12:00am swallow whole; do not crush, chew, dissolve, cut, break oxyCODONE hydrochloride 5 mg oral tablet (1 source) Opioid Agonist Start: 02-25-2025 take 1 tablet by mouth every six hours as needed for pain Oxycodone 5 mg tablet Active 5 mg PO EVERY 6 HOURS as needed for pain 14 February 25, 2025 polyethylene glycol 3350 770747 mg / potassium chloride 2980 mg / sodium bicarbonate 6720 mg / sodium chloride 5840 mg / sodium sulfate 41173 mg powder for oral solution (1 source) Osmotic Laxative Start: 03-13-2023 End: 03-13-2023 peg 3350-electrolytes (COLYTE) 240-22.72-6.72 -5.84 gram solution Indications: Special screening for malignant neoplasms, colon Take 4,000 mL by mouth one time only for 1 dose. 4000 mL 0 03/13/2023 03/13/2023 Active Comment on above: Take 4,000 mL by alicia th one time only for 1 dose. prochlorperazine 5 mg oral tablet (2 sources) Phenothiazine Start: 04-24-2025 take 1 tablet by mouth every six hours for nausea prochlorperazine (Compazine) 5 mg tablet Indications: Calculus of gallbladder without cholecystitis without obstruction Take 1 tablet (5 mg) by mouth every 6 hours if needed for nausea or vomiting for up to 20 doses. 20 tablet 04/24/2025 Active Start: 04-23-2025 End: 04-23-2025 5 mg, intravenous, Once, On 04/23/25 at 2250, For 1 dose simvastatin 40 mg oral tablet (20 sources) HMG-CoA Reductase Inhibitor Start: 01-21-2022 End: 03-02-2025 take 1 tablet by mouth once daily at bedtime simvastatin (Zocor) 40 mg tablet Take 1 tablet (40 mg) by mouth once daily at bedtime. 03/13/2023 Active Comment on above: Take 1 tablet by alicia th daily at bedtime. sucralfate 1000 mg oral tablet (2 sources) Aluminum Complex Start: 02-14-2025 take 1 tablet by mouth twice daily before mealtime sucralfate (CARAFATE) 1 gram tablet Take 1 g by mouth two times a day before meals. 02/14/2025 Active Start: 02-14-2025 take 1 tablet by alicia th once at bedtime Sucralfate 1 gram tablet Active 1 g PO before meals and at bedtime February 14, 2025 12:00am Take an hour before meals and at bedtime tamsulosin hydrochloride 0.4 mg oral capsule (2 sources) alpha-Adrenergic Ana Start: 02-27-2025 take 0.4 mg by mouth once daily tamsulosin (FLOMAX) 0.4 mg Take 0.4 mg by mouth once daily. 02/27/2025 Active Completed/Discontinued Medications Medication Drug Class(es) Dates Sig (Normalized) Sig (Original) aspirin 81 mg chewable tablet (4 sources) Platelet Aggregation Inhibitor, Nonsteroidal Anti-inflammatory Drug Start: 04-23-2025 End: 04-23-2025 take 324 mg by mouth once 324 mg, oral, Once, On 04/23/25 at 2220, For 1 dose Start: 06-12-2015 End: 01-31-2025 take 1 tablet by mouth once daily Aspirin 81 MG tablet Discontinued 81 mg PO DAILY@0800 June 12, 2015 12:00am January 31, 2025 11:08am ciprofloxacin 500 mg oral tablet (3 sources) Quinolone Antimicrobial Start: 02-11-2025 End: 02-25-2025 take 1 tablet by mouth once daily Ciprofloxacin Hcl 500 mg tablet Discontinued 500 mg PO .QD February 11, 2025 12:00am February 25, 2025 9:41am Start: 01-31-2025 End: 02-11-2025 take 1 tablet by mouth twice daily Ciprofloxacin Hcl 500 mg tablet Discontinued 500 mg PO TWICE A DAY 14 7 January 31, 2025 12:00am February 11, 2025 1:24pm docusate sodium 100 mg oral capsule (13 sources) Start: 01-13-2024 End: 03-18-2025 take 1 capsule by mouth twice daily as needed for constipation docusate sodium (COLACE) 100 mg capsule Indications: Acute pain of right knee Take 1 capsule by mouth two times a day as needed for constipation. 30 capsule 01/13/2024 03/18/2025 Discontinued (Discontinued by Patient) Comment on above: Take 1 capsule by [facility] two times a day as needed for constipation. HYDROcodone bitartrate 7.5 mg / ibuprofen 200 mg oral tablet (2 sources) Opioid Agonist, Nonsteroidal Anti-inflammatory Drug Start: 01-13-2024 End: 01-13-2024 take 1 tablet by mouth every eight hours as needed for pain HYDROcodone-Ibupr ofen (VICOPROFEN) 7.5-200 mg per tablet Indications: Acute pain of right knee Take 1 tablet by mouth every 8 hours as needed for pain for up to 3 days. 9 tablet 0 01/13/2024 01/13/2024 Discontinued Comment on above: Take 1 tablet by alicia th every 8 hours as needed for pain for up to 3 days. imiquimod 50 mg/ml topical cream (20 sources) Start: 06-19-2021 End: 03-18-2025 imiquimod (ALDARA) 5 % cream Apply 1 application to affected area three times a week. 06/19/2021 03/18/2025 Discontinued Comment on above: Apply 1 application to affected area three times a week. 1000 ml sodium chloride 9 mg/ml injection (1 source) Start: 04-23-2025 End: 04-24-2025 1,000 mL, intravenous, at 999 mL/hr, Administer over 1 Hours, Once, On 04/23/25 at 2325, For 1 dose triamcinolone acetonide 1 mg/ml topical cream (20 sources) Corticosteroid Start: 07-31-2021 End: 03-18-2025 triamcinolone acetonide (KENALOG) 0.1 % cream Apply 1 application to affected area twice daily as needed. forehead 07/31/2021 03/18/2025 Discontinued Comment on above: Apply 1 application to affected area twice daily as needed. forehead Problems Active Problems Problem Classification Problem Date Documented Da te Episodic/Chronic Abdominal pain (1 source) Unspecified abdominal pain; Translations: [Unspecified abdominal pain] Onset: 02-11-2025 Episodic Biliary tract disease (14 sources) Gallstone; Translations: [Calculus of gallbladder without cholecystitis without obstruction] Onset: 01-31-2025 01-31-2025 Episodic Chronic kidney disease (20 sources) Chronic kidney disease stage 3A ; Translations: [Stage 3a chronic kidney disease (HCC)] Onset: 08-03-2018 Chronic Chronic kidney disease (1 source) Chronic kidney disease; Translations: [Stage 3a chronic kidney disease (HCC)] Onset: 08-03-2018 Disorders of lipid metabolism (20 sources) Hyperlipidemia; Translations: [Hyperlipidemia, unspecified] Onset: 12-18-2015 Chronic Fever of unknown origin (1 source) Fever, unspecified; Translations: [Fever, unspecified] Onset: 11-05-2022 Episodic Headache; including migraine (1 source) Headache; including migraine; Translations: [Headache, unspecified] Onset: 12-20-2022 Hyperplasia of prostate (20 sources) Benign prostatic hypertrophy with outflow obstruction; Translations: [Benign prostatic hyperplasia with lower urinary tract symptoms] Onset: 08-28-2021 Chronic Immunizations and screening for infectious disease (2 sources) Contact with or exposure to other viral diseases; Translations: [Exposure to COVID-19 virus] Episodic Malaise and fatigue (1 source) Other malaise; Translations: [Other malaise] Onset: 11-05-2022 Episodic Nephritis; nephrosis; renal sclerosis (5 sources) Atrophy of kidney; 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)] Onset: 02-11-2025 01-31-2025 Chronic Comment on above: right kidney- chroni c w hydronephrosis right kidney- chroni c w severe hydronephrosis Other circulatory disease (1 source) Respiratory symptom; Translations: [Other specified symptoms and signs involving the circulatory and respiratory systems] Episodic Other diseases of kidney and ureters (2 sources) Acquired renal cystic disease; 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 of kidney, acquired] 01-31-2025 Episodic Other diseases of kidney and ureters (2 sources) Hydronephrosis; Translations: [Unspecified hydronephrosis] 01-31-2025 Episodic Other diseases of kidney and ureters (1 source) Other hydronephrosis; Translations: [Other hydronephrosis] Onset: 03-15-2025 Episodic Other gastrointestinal disorders (4 sources) Abdominal bloating; Translations: [Abdominal distension (gaseous)] 01-31-2025 Episodic Other gastrointestinal disorders (1 source) Abdominal distension (gaseous); Translations: [Abdominal distension (gaseous)] Onset: 02-11-2025 Episodic Other injuries and conditions due to external causes (3 sources) Injury of right knee; Translations: [Unspecified injury of right lower leg, initial encounter] 01-01-2024 Episodic Other lower respiratory disease (1 source) Multiple nodules of lung; Translations: [Other nonspecific abnormal finding of lung field] 06-14-2024 Episodic Other non-epithelial cancer of skin (20 sources) Malignant neoplasm of scalp; Translations: [Unspecified malignant neoplasm of skin of scalp and neck] Onset: 07-18-2016 Resolved: 03-18-2025 07-30-2017 Episodic Other non-traumatic joint disorders (2 sources) Pain in right knee; Translations: [Pain in joint, lower leg] 01-13-2024 Episodic Other nutritional; endocrine; and metabolic disorders (20 sources) Obese class I; Translations: [Obesity, unspecified] Onset: 08-03-2018 Chronic Other upper respiratory disease (20 sources) Chronic rhinitis; Translations: [Chronic rhinitis] Onset: 04-20-2008 07-30-2017 Chronic Other upper respiratory disease (1 source) Chronic rhinitis; Translations: [Chronic rhinitis] Onset: 07-30-2017 Chronic Other upper respiratory infections (1 source) Acute upper respiratory infection, unspecified; Translations: [Acute upper respiratory infection, unspecified] Onset: 11-05-2022 Episodic Residual codes; unclassified (4 sources) Tobacco user; Translations: [Tobacco use] 05-28-2023 Episodic Screening and history of mental health and substance abuse codes (2 sources) Encounter for screening examination for other mental health and behavioral disorders; Translations: [Encounter for screening for depression] Onset: 03-18-2025 Episodic Substance-related disorders (20 sources) Tobacco user; Translations: [Nicotine dependence, unspecified, uncomplicated] Onset: 04-20-2008 07-30-2017 Chronic Unclassified (1 source) Contact with and (suspected) exposure to COVID-19; Translations: [Contact with and (suspected) exposure to COVID-19] Onset: 11-05-2022 Unclassified (1 source) Cough, unspecified; Translations: [Cough, unspecified] Onset: 11-05-2022 Unclassified (1 source) Obesity, Class I, BMI 30-34.9; Translations: [Obesity, Class I, BMI 30-34.9] Onset: 08-03-2018 Urinary tract infections (2 sources) Acute urinary tract infection; Translations: [Urinary tract infection, site not specified] 01-31-2025 Episodic Past or Other Problems Problem Classification Problem Date Documented Date Episodic/Chronic Diabetes mellitus without complication (20 sources) Impaired fasting glycemia; Translations: [Impaired fasting glucose] Onset: 6 Episodic Genitourinary congenital anomalies (20 sources) Congenital renal atrophy; 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, unspecified] Onset: 8 Resolved: 5 07-30-2017 Chronic Genitourinary symptoms and ill-defined conditions (11 sources) Microscopic hematuria; Translations: [Other microscopic hematuria] Onset: 8 Resolved: 6 07-18-2016 Episodic Other and unspecified benign neoplasm (20 sources) Benign neoplasm of colon; Translations: [Benign neoplasm of colon, unspecified] Onset: 8 Resolved: 5 03-24-2009 Episodic Other diseases of kidney and ureters (19 sources) Hydroureteronephrosis ; Translations: [Unspecified hydronephrosis] Onset: 3 Resolved: 5 05-31-2023 Episodic Other diseases of kidney and ureters (1 source) Other obstructive and reflux uropathy; Translations: [BPH with obstruction/lower urinary tract symptoms] Onset: 1 Episodic Other nutritional; endocrine; and metabolic disorders (11 sources) Overweight; Translations: [Overweight] Onset: 8 Resolved: 5 09-20-2015 Episodic Other screening for suspected conditions (not mental disorders or infectious disease) (20 sources) Patient encounter status; Translations: [Encounter for screening for malignant neoplasm of colon] Onset: 3 Resolved: 5 Episodic Residual codes; unclassified (1 source) Tobacco use; Translations: [Tobacco use current] Onset: 4 Episodic Results Test Name Value Interpretation Reference Range Facility CT Abdomen WO contraston 1. A 6 mm radiopaque stone is present in the gallbladder neck, with slightly indistinct appearance of the gallbladder wall, although there is no gallbladder distention, pericholecystic stranding or surrounding fluid. No intrahepatic or extrahepatic biliary dilatation is present. Liver is unremarkable in appearance within limits of noncontrast exam. 2. Somewhat thickened bladder wall may represent sequela of chronic outlet obstruction secondary to prostatomegaly, although correlation with urinalysis is recommended to exclude cystitis. 3. Numerous diverticula are present in the descending and sigmoid colon without evidence of acute diverticulitis. 4. Right kidney surgically absent, and was atrophic in appearance on previous exam in 2013. A tubular fluid attenuating structure in the right adnexa, extending into the bladder is favored to represent a dilated ureteral remnant. 5. Numerous calcifications throughout the spleen likely represent chronic sequela of prior granulomatous process. MACRO: None Signed by: Remy Ernst 04/24/2025 12:23 AM Dictation workstation: [id number] MMODAL Interpreted By: Remy Ernst, STUDY: CT ABDOMEN PELVIS WO IV CONTRAST; 04/23/2025 11:43 pm INDICATION: Signs/Symptoms:Nausea vomiting, elevated LFTs. COMPARISON: CT abdomen and pelvis dated 01/25/2014 ACCESSION NUMBER(S): [id number] ORDERING CLINICIAN: JUSTINA KIM TECHNIQUE: CT of the abdomen and pelvis was performed. Contiguous axial images were obtained at 3 mm slice thickness through the abdomen and pelvis. Coronal and sagittal reconstructions at 3 mm slice thickness were performed. No intravenous or oral contrast agents were administered. FINDINGS: Please note that the evaluation of vessels, lymph nodes and organs is limited without intravenous contrast. LOWER CHEST: There is some bandlike scarring/atelectasis present in the lung bases bilaterally without evidence of consolidation or sizable effusion. Heart is normal in size without pericardial effusion. Small hiatal hernia is present in the distal esophagus. ABDOMEN: LIVER: Within limits of noncontrast exam, no acute hepatic parenchymal abnormality is identified. BILE DUCTS: No intrahepatic or extrahepatic biliary dilatation is present. GALLBLADDER: A 6.4 radiopaque stone is present in the gallbladder neck, with somewhat indistinct appearance of the gallbladder wall, although the gallbladder is nondistended and does not demonstrate any surrounding pericholecystic stranding or fluid. PANCREAS: No pancreatic ductal dilatation or peripancreatic stranding is present. SPLEEN: Innumerable calcifications, likely representing calcified granulomas, are present throughout the spleen. ADRENAL GLANDS: No acute adrenal abnormality is present. KIDNEYS AND URETERS: Right kidney is surgically absent, and with atrophic in appearance on previous study in 2013. A tubular structure is present in the lower pelvis, appearing to extend towards the bladder and is favored to represent a dilated ureteral remnant (series 2, 100 and 2). Left kidney is unremarkable in appearance without evidence of hydronephrosis or radiopaque stones. Left ureter is not dilated. PELVIS: BLADDER: Bladder wall is somewhat thickened and slightly trabeculated in appearance. REPRODUCTIVE ORGANS: Prostate is enlarged. BOWEL: Stomach is somewhat distended with fluid without evidence of wall thickening. No abnormal small bowel dilatation is present. Appendix is not definitely identified, although no secondary signs of acute appendicitis are present near its expected location in the right lower quadrant. Numerous diverticula are present in the descending and sigmoid colon without evidence of acute diverticulitis. VESSELS: Mild atherosclerotic plaques are present in the abdominal aorta, without evidence of acute vascular abnormality within limits of noncontrast exam. PERITONEUM/RETROPERITON EUM/LYMPH NODES: No free air or free fluid are present in the abdomen or pelvis. No thick-walled collections are identified. No enlarged lymphadenopathy is present. Partially calcified avelino hepatic lymph nodes likely represent sequela of prior granulomatous process. ABDOMINAL WALL: Cutaneous tissues of the abdomen and pelvis do not demonstrate any acute abnormality. BONES: No acute osseous abnormality is identified. MMODAL Scott Ernst v, MD - 04/24/2025 Interpreted By: Remy Ernst, STUDY: CT ABDOMEN PELVIS WO IV CONTRAST; 04/23/2025 11:43 pm INDICATION: Signs/Symptoms:Nausea vomiting, elevated LFTs. COMPARISON: CT abdomen and pelvis dated 01/25/2014 ACCESSION NUMBER(S): [id number] ORDERING CLINICIAN: JUSTINA KIM TECHNIQUE: CT of the abdomen and pelvis was performed. Contiguous axial images were obtained at 3 mm slice thickness through the abdomen and pelvis. Coronal and sagittal reconstructions at 3 mm slice thickness were performed. No intravenous or oral contrast agents were administered. FINDINGS: Please note that the evaluation of vessels, lymph nodes and organs is limited without intravenous contrast. LOWER CHEST: There is some bandlike scarring/atelectasis present in the lung bases bilaterally without evidence of consolidation or sizable effusion. Heart is normal in size without pericardial effusion. Small hiatal hernia is present in the distal esophagus. ABDOMEN: LIVER: Within limits of noncontrast exam, no acute hepatic parenchymal abnormality is identified. BILE DUCTS: No intrahepatic or extrahepatic biliary dilatation is present. GALLBLADDER: A 6.4 radiopaque stone is present in the gallbladder neck, with somewhat indistinct appearance of the gallbladder wall, although the gallbladder is nondistended and does not demonstrate any surrounding pericholecystic stranding or fluid. PANCREAS: No pancreatic ductal dilatation or peripancreatic stranding is present. SPLEEN: Innumerable calcifications, likely representing calcified granulomas, are present throughout the spleen. ADRENAL GLANDS: No acute adrenal abnormality is present. KIDNEYS AND URETERS: Right kidney is surgically absent, and with atrophic in appearance on previous study in 2014. A tubular structure is present in the lower pelvis, appearing to extend towards the bladder and is favored to represent a dilated ureteral remnant (series 2, 100 and 2). Left kidney is unremarkable in appearance without evidence of hydronephrosis or radiopaque stones. Left ureter is not dilated. PELVIS: BLADDER: Bladder wall is somewhat thickened and slightly trabeculated in appearance. REPRODUCTIVE ORGANS: Prostate is enlarged. BOWEL: Stomach is somewhat distended with fluid without evidence of wall thickening. No abnormal small bowel dilatation is present. Appendix is not definitely identified, although no secondary signs of acute appendicitis are present near its expected location in the right lower quadrant. Numerous diverticula are present in the descending and sigmoid colon without evidence of acute diverticulitis. VESSELS: Mild atherosclerotic plaques are present in the abdominal aorta, without evidence of acute vascular abnormality within limits of noncontrast exam. PERITONEUM/RETROPERITON EUM/LYMPH NODES: No free air or free fluid are present in the abdomen or pelvis. No thick-walled collections are identified. No enlarged lymphadenopathy is present. Partially calcified avelino hepatic lymph nodes likely represent sequela of prior granulomatous process. ABDOMINAL WALL: Cutaneous tissues of the abdomen and pelvis do not demonstrate any acute abnormality. BONES: No acute osseous abnormality is identified. IMPRESSION: 1. A 6 mm radiopaque stone is present in the gallbladder neck, with slightly indistinct appearance of the gallbladder wall, although there is no gallbladder distention, pericholecystic stranding or surrounding fluid. No intrahepatic or extrahepatic biliary dilatation is present. Liver is unremarkable in appearance within limits of noncontrast exam. 2. Somewhat thickened bladder wall may represent sequela of chronic outlet obstruction secondary to prostatomegaly, although correlation with urinalysis is recommended to exclude cystitis. 3. Numerous diverticula are present in the descending and sigmoid colon without evidence of acute diverticulitis. 4. Right kidney surgically absent, and was atrophic in appearance on previous exam in 2014. A tubular fluid attenuating structure in the right adnexa, extending into the bladder is favored to represent a dilated ureteral remnant. 5. Numerous calcifications throughout the spleen likely represent chronic sequela of prior granulomatous process. MACRO: None Signed by: Remy Ernst 04/24/2025 12:23 AM Dictation workstation: [id number] [facility] Work Phone: CT Abdomen WO contrastOrdere d By: Remy Ernst on 04-24-2025 [facility] Work Phone: Tropinin I.cardiac panel Hig h sensitivity methodon 04-24-2025 Interpretation and review of laboratory results Normal [facility] Less than 99th percentile of normal range cutoff- Female and children under 18 years old <14 ng/L; Male <21 ng/L: Negative Repeat testing should be performed if clinically indicated. Female and children under 18 years old 14-50 ng/L; Male 21-50 ng/L: Consistent with possible cardiac damage and possible increased clinical risk. Serial measurements may help to assess extent of myocardial damage. >50 ng/L: Consistent with cardiac damage, increased clinical risk and myocardial infarction. Serial measurements may help assess extent of myocardial damage. NOTE: Children less than 1 year old may have higher baseline troponin levels and results should be interpreted in conjunction with the overall clinical context. NOTE: Troponin I testing is performed using a different testing methodology at [facility] than at other [facility]. Direct result comparisons should only be made within the same method. [facility] Troponin, High Sensitivity, 1 Houron 04-24-2025 Tropinin I.cardiac panel High sensitivity method 5 ng/L 0 - 20 ng/L [facility] APTTon 04-23-2025 aPTT Coag (PPP) [Time] 31 s Un [facility] Basic metabolic 2000 panelon 04-23-2025 Anion gap [Moles/Vol] 10 mmol/L 10 - 2 0 mmol/L [facility] Calcium [Mass/Vol] 9.3 mg/dL 8.6 - 10. 3 mg/dL [facility] Chloride [Moles/Vol] 106 mmol/L 98 - 10 7 mmol/L [facility] CO2 [Moles/Vol] 27 mmol/L 21 - 32 mmol/L [facility] Creatinine [Mass/Vol] 1.42 mg/dL High 0.50 - 1.30 mg/dL [facility] GFR/1.73 sq M.predicted among non-blacks MDRD (S/P/Bld) [Vol rate/Area] 53 mL/min/{1.73_m2} Low - PINF [facility] Comment on above: Calculations of gayatri mated GFR are performed using the 2020 CKD-EPI Study Refit equation without the race variable for the IDMS-Traceable creatinine methods. https://jasn.asnjournals.org/content/early//ASN.11098 96094 Glucose [Mass/Vol] 121 mg/dL High 74 - 99 mg/dL [facility] Interpretation and review of laboratory results Abnormal [facility] Potassium [Moles/Vol] 3.8 mmol/L 3.5 - 5.3 mmol/L [facility] Sodium [Moles/Vol] 139 mmol/L 136 - 145 mmol/L [facility] Urea nitrogen [Mass/Vol] 22 mg/dL 6 - 23 mg/dL [facility] Anion gap [Moles/Vol] 10 mmol/L Normal 10-20 [facility] Comment on above: Performed By: #### 2 4321-2 #### ELLEN MAHAJAN ([id number]) [facility]) [facility] [place] [address] Calcium [Mass/Vol] 9.3 mg/dL Normal 8.6-10.3 [facility] Comment on above: Performed By: #### 2 4321-2 #### ELLEN MAHAJAN ([id number]) [facility] ([facility]) [address] [place] [address] Chloride [Moles/Vol] 106 mmol/L Normal 98-107 [facility] Comment on above: Performed By: #### 2 4321-2 #### ELLEN MAHAJAN ([id number]) [facility]) [facility] [place] [address] CO2 [Moles/Vol] 27 mmol/L Normal 21-32 [facility] Comment on above: Performed By: #### 2 4321-2 #### ELLEN MAHAJAN ([id number]) [facility]) [address] [place] [address] Creatinine [Mass/Vol] 1.42 mg/dL High 0.50-1.30 [facility] Comment on above: Performed By: #### 2 4321-2 #### ELLEN MAHAJAN ([id number]) [facility] ([facility]) [address] [place] [address]407 Glomerular filtration rate/1.73 sq M.predicted 53 mL/min/1.73m*2 Low >60 [facility] Comment on above: Result Comment: Calc ulations of estimated GFR are performed using the 2020 CKD-EPI Study Refit equation without the race variable for the IDMS-Traceable creatinine methods. https://jasn.asnjournals.org/content/early/ASN.33156 51361 Performed By: #### 2 4321-2 #### ELLEN MAHAJAN ([id number]) [facility] ([facility]) [address] [place] [address]138 Glucose [Mass/Vol] 121 mg/dL High 74-99 [facility] Comment on above: Performed By: #### 2 4321-2 #### ELLEN MAHAJAN ([id number]) [facility]) [address] [place] [address]52 Potassium [Moles/Vol] 3.8 mmol/L Normal 3.5-5.3 [facility] Comment on above: Performed By: #### 2 4321-2 #### ELLEN MAHAJAN ([id number]) [facility]) [address] [place] [address] 36562 Sodium [Moles/Vol] 139 mmol/L Normal 136-145 [facility] Comment on above: Performed By: #### 2 4321-2 #### ELLEN MAHAJAN ([id number]) [facility]) [address] [place] [address] 27700 Urea nitrogen [Mass/Vol] 22 mg/dL Normal 6-23 [facility] Comment on above: Performed By: #### 2 4321-2 #### ELLEN MAHAJAN ([id number]) [facility]) [address] [place] [address] CBC W Auto Differential pane l (Bld)on 04-23-2025 Basophils (Bld) [#/Vol] 0.02 10*3/uL [facility] Basophils/100 WBC (Bld) 0.3 % 0.0 - 2.0 % [facility] Eosinophils (Bld) [#/Vol] 0.12 10*3/uL [facility] Eosinophils/100 WBC (Bld) 1.9 % 0.0 - 6.0 % [facility] Erythrocyte distribution width (RBC) [Ratio] 13.6 % 11.5 - 14.5 % [facility] Hematocrit (Bld) [Volume fraction] 42 % 41.0 - 52.0 % [facility] Hemoglobin (Bld) [Mass/Vol] 13.8 g/dL 13.5 - 17.5 g/dL [facility] Immature granulocytes (Bld) [#/Vol] 0.01 10*3/uL [facility] Immature granulocytes/100 WBC (Bld) 0.2 % 0.0 - 0.9 % [facility] Comment on above: Immature Granulocyte Count (IG) includes promyelocytes, myelocytes and metamyelocytes but does not include bands. Percent differential counts (%) should be interpreted in the context of the absolute cell counts (cells/UL). Lymphocytes (Bld) [#/Vol] 2.04 10*3/uL [facility] Lymphocytes/100 WBC (Bld) 33 % 13.0 - 44.0 % [facility] MCH (RBC) [Entitic mass] 28.5 pg 26.0 - 34.0 pg [facility] MCHC (RBC) [Mass/Vol] 32.9 g/dL 32.0 - 36.0 g/dL [facility] MCV (RBC) [Entitic vol] 87 fL 80 - 100 fL [facility] Monocytes (Bld) [#/Vol] 0.7 10*3/uL [facility] Monocytes/100 WBC (Bld) 11.3 % 2.0 - 10.0 % [facility] Neutrophils (Bld) [#/Vol] 3.29 10*3/uL [facility] Comment on above: Percent differential counts (%) should be interpreted in the context of the absolute cell counts (cells/uL). Neutrophils/100 WBC (Bld) 53.3 % 40.0 - 80.0 % [facility] Nucleated RBC/100 WBC (Bld) [Ratio] 0 % [facility] Platelets (Bld) [#/Vol] 174 10*3/uL [facility] RBC (Bld) [#/Vol] 4.84 10*6/uL [facility] WBC (Bld) [#/Vol] 6.2 10*3/uL [facility] Basophils (Bld) [#/Vol] 0.02 x10*3/uL Normal 0.00-0.10 [facility] Comment on above: Performed By: #### 5 7021-8 #### ELLEN MAHAJAN ([id number]) [facility]) [address] [place] [address] 15089 Basophils/100 WBC (Bld) 0.3 % Normal 0.0-2.0 [facility] Comment on above: Performed By: #### 5 7021-8 #### ELLEN MAHAJAN ([id number]) [facility]) [address] [place] [address] 42473 Eosinophils (Bld) [#/Vol] 0.12 x10*3/uL Normal 0.00-0.40 [facility] Comment on above: Performed By: #### 5 7021-8 #### ELLEN MAHAJAN ([id number]) [facility]) [address] [place] [address] 64221 Eosinophils/100 WBC (Bld) 1.9 % Normal 0.0-6.0 [facility] Comment on above: Performed By: #### 5 7021-8 #### ELLEN MAHAJAN ([id number]) [facility]) [address] [place] [address] 27462 Erythrocyte distribution width (RBC) [Ratio] 13.6 % Normal 11.5-14.5 [facility] Comment on above: Performed By: #### 5 7021-8 #### ELLEN MAHAJAN ([id number]) [facility]) [address] [place] [address] 66850 Hematocrit (Bld) [Volume fraction] 42.0 % Normal 41.0-52.0 [facility] Comment on above: Performed By: #### 5 7021-8 #### ELLEN MAHAJAN ([id number]) [facility]) [address] [place] [address] 58679 Hemoglobin (Bld) [Mass/Vol] 13.8 g/dL Normal 13.5-17.5 [facility] Comment on above: Performed By: #### 5 7021-8 #### ELLEN MAHAJAN ([id number]) [facility]) [address] [place] [address] 74131 Immature granulocytes (Bld) [#/Vol] 0.01 x10*3/uL Normal 0.00-0.50 [facility] Comment on above: Performed By: #### 5 7021-8 #### ELLEN MAHAJAN ([id number]) [facility]) [address] [place] [address] 21265 Immature granulocytes/100 WBC (Bld) 0.2 % Normal 0.0-0.9 [facility] Comment on above: Result Comment: Lorin ture Granulocyte Count (IG) includes promyelocytes, myelocytes and metamyelocytes but does not include bands. Percent differential counts (%) should be interpreted in the context of the absolute cell counts (cells/UL). Performed By: #### 5 7021-8 #### ELLEN MAHAJAN ([id number]) [facility]) [address] [place] [address] 29336 Lymphocytes (Bld) [#/Vol] 2.04 x10*3/uL Normal 0.80-3.00 [facility] Comment on above: Performed By: #### 5 7021-8 #### ELLEN MAHAJAN ([id number]) [facility]) [address] [place] [address] 70633 Lymphocytes/100 WBC (Bld) 33.0 % Normal 13.0-44.0 [facility] Comment on above: Performed By: #### 5 7021-8 #### ELLEN MAHAJAN ([id number]) [facility]) [address] [place] [address] 97949 MCH (RBC) [Entitic mass] 28.5 pg Normal 26.0-34.0 [facility] Comment on above: Performed By: #### 5 7021-8 #### ELLEN MAHAJAN ([id number]) [facility]) [address] [place] [address] 11961 MCHC (RBC) [Mass/Vol] 32.9 g/dL Normal 32.0-36.0 [facility] Comment on above: Performed By: #### 5 7021-8 #### ELLEN MAHAJAN ([id number]) [facility]) [address] [place] [address] 50717 MCV (RBC) [Entitic vol] 87 fL Normal 80-100 [facility] Comment on above: Performed By: #### 5 7021-8 #### ELLEN MAHAJAN ([id number]) [facility]) [address] [place] [address] 28493 Monocytes (Bld) [#/Vol] 0.70 x10*3/uL Normal 0.05-0.80 [facility] Comment on above: Performed By: #### 5 7021-8 #### ELLEN MAHAJAN ([id number]) [facility]) [address] [place] [address] 15340 Monocytes/100 WBC (Bld) 11.3 % Normal 2.0-10.0 [facility] Comment on above: Performed By: #### 5 7021-8 #### ELLEN MAHAJAN ([id number]) [facility]) [address] [place] [address] 49005 Neutrophils (Bld) [#/Vol] 3.29 x10*3/uL Normal 1.60-5.50 [facility] Comment on above: Result Comment: Perc ent differential counts (%) should be interpreted in the context of the absolute cell counts (cells/uL). Performed By: #### 5 7021-8 #### ELLEN MAHAJAN ([id number]) [facility]) [address] [place] [address] 88236 Neutrophils/100 WBC (Bld) 53.3 % Normal 40.0-80.0 [facility] Comment on above: Performed By: #### 5 7021-8 #### ELLEN MAHAJAN ([id number]) [facility]) [address] [place] [address] Nucleated RBC/100 WBC (Bld) [Ratio] 0.0 /100 WBCs Normal 0.0-0.0 [facility] Comment on above: Performed By: #### 5 7021-8 #### ELLEN MAHAJAN ([id number]) [facility]) [address] [place] [address] 39497 Platelets (Bld) [#/Vol] 174 x10*3/uL Normal 150-450 [facility] Comment on above: Performed By: #### 5 7021-8 #### ELLEN MAHAJAN ([id number]) [facility]) [address] [place] [address] 69763 RBC (Bld) [#/Vol] 4.84 x10*6/uL Normal 4.50-5.90 [facility] Comment on above: Performed By: #### 5 7021-8 #### ELLEN MAHAJAN ([id number]) [facility]) [address] [place], [place] [address] WBC (Bld) [#/Vol] 6.2 x10*3/uL Normal 4.4-11.3 [facility] Comment on above: Performed By: #### 5 7021-8 #### ELLEN MAHAJAN ([id number]) [facility]) [address] [place], [place] [id number] CT ABDOMEN PELVIS WO IV [facility] ABDOMEN PELVIS WO IV CONTRAST Interpreted By: Remy Ernst, STUDY: CT ABDOMEN PELVIS WO IV CONTRAST; 04/23/2025 11:43 pm INDICATION: Signs/Symptoms:Nausea vomiting, elevated LFTs. COMPARISON: CT abdomen and pelvis dated 01/25/2014 ACCESSION NUMBER(S): [id number] ORDERING CLINICIAN: JUSTINA KIM TECHNIQUE: CT of the abdomen and pelvis was performed. Contiguous axial images were obtained at 3 mm slice thickness through the abdomen and pelvis. Coronal and sagittal reconstructions at 3 mm slice thickness were performed. No intravenous or oral contrast agents were administered. FINDINGS: Please note that the evaluation of vessels, lymph nodes and organs is limited without intravenous contrast. LOWER CHEST: There is some bandlike scarring/atelectasis present in the lung bases bilaterally without evidence of consolidation or sizable effusion. Heart is normal in size without pericardial effusion. Small hiatal hernia is present in the distal esophagus. ABDOMEN: LIVER: Within limits of noncontrast exam, no acute hepatic parenchymal abnormality is identified. BILE DUCTS: No intrahepatic or extrahepatic biliary dilatation is present. GALLBLADDER: A 6.4 radiopaque stone is present in the gallbladder neck, with somewhat indistinct appearance of the gallbladder wall, although the gallbladder is nondistended and does not demonstrate any surrounding pericholecystic stranding or fluid. PANCREAS: No pancreatic ductal dilatation or peripancreatic stranding is present. SPLEEN: Innumerable calcifications, likely representing calcified granulomas, are present throughout the spleen. ADRENAL GLANDS: No acute adrenal abnormality is present. KIDNEYS AND URETERS: Right kidney is surgically absent, and with atrophic in appearance on previous study in 2013. A tubular structure is present in the lower pelvis, appearing to extend towards the bladder and is favored to represent a dilated ureteral remnant (series 2, 100 and 2). Left kidney is unremarkable in appearance without evidence of hydronephrosis or radiopaque stones. Left ureter is not dilated. PELVIS: BLADDER: Bladder wall is somewhat thickened and slightly trabeculated in appearance. REPRODUCTIVE ORGANS: Prostate is enlarged. BOWEL: Stomach is somewhat distended with fluid without evidence of wall thickening. No abnormal small bowel dilatation is present. Appendix is not definitely identified, although no secondary signs of acute appendicitis are present near its expected location in the right lower quadrant. Numerous diverticula are present in the descending and sigmoid colon without evidence of acute diverticulitis. VESSELS: Mild atherosclerotic plaques are present in the abdominal aorta, without evidence of acute vascular abnormality within limits of noncontrast exam. PERITONEUM/RETROPERITON EUM/LYMPH NODES: No free air or free fluid are present in the abdomen or pelvis. No thick-walled collections are identified. No enlarged lymphadenopathy is present. Partially calcified avelino hepatic lymph nodes likely represent sequela of prior granulomatous process. ABDOMINAL WALL: Cutaneous tissues of the abdomen and pelvis do not demonstrate any acute abnormality. BONES: No acute osseous abnormality is identified. IMPRESSION: 1. A 6 mm radiopaque stone is present in the gallbladder neck, with slightly indistinct appearance of the gallbladder wall, although there is no gallbladder distention, pericholecystic stranding or surrounding fluid. No intrahepatic or extrahepatic biliary dilatation is present. Liver is unremarkable in appearance within limits of noncontrast exam. 2. Somewhat thickened bladder wall may represent sequela of chronic outlet obstruction secondary to prostatomegaly, although correlation with urinalysis is recommended to exclude cystitis. 3. Numerous diverticula are present in the descending and sigmoid colon without evidence of acute diverticulitis. 4. Right kidney surgically absent, and was atrophic in appearance on previous exam in 2013. A tubular fluid attenuating structure in the right adnexa, extending into the bladder is favored to represent a dilated ureteral remnant. 5. Numerous calcifications throughout the spleen likely represent chronic sequela of prior granulomatous process. MACRO: None Signed by: Remy Ernst 04/24/2025 12:23 AM Dictation workstation: [id number] Normal [facility] CT Abdomen WO contraston Radiology Study observation (narrative) [facility] Work Phone: Coagulation surface inducedo n 04-23-2025 aPTT Coag (PPP) [Time] 31 s Normal 26-36 [facility] Comment on above: Order Comment: The A PTT is no longer used for monitoring Unfractionated Heparin Therapy. For monitoring Heparin Therapy, use the Heparin Assay. Performed By: #### 1 4979-9 #### HUGHES ZAINA ([id number]) [facility]) [address] [place] [address] Coagulation tissue factor in ducedon 04-23-2025 PT Coag (PPP) [Time] 10.9 s Normal 9.8-12.4 [facility] Comment on above: Performed By: #### 5 902-2 #### ELLEN MAHAJAN ([id number]) [facility]) [address] [place] [address] Hepatic function 2000 panelo n 04-23-2025 Albumin BCP dye [Mass/Vol] 4 g/dL 3.4 - 5.0 g/dL [facility] ALP [Catalytic activity/Vol] 83 U/L 33 - 136 U/L [facility] ALT With P-5'-P [Catalytic activity/Vol] 69 U/L High 10 - 52 U/L [facility] Comment on above: Patients treated wit h Sulfasalazine may generate falsely decreased results for ALT. AST With P-5'-P [Catalytic activity/Vol] 113 U/L High 9 - 39 U/L [facility] Bilirubin [Mass/Vol] 0.3 mg/dL 0.0 - 1 .2 mg/dL [facility] Bilirubin.direct [Mass/Vol] 0.1 mg/dL 0.0 - 0.3 mg/dL [facility] Interpretation and review of laboratory results Abnormal [facility] Protein [Mass/Vol] 6.4 g/dL 6.4 - 8.2 g/dL [facility] Albumin BCP dye [Mass/Vol] 4.0 g/dL Normal 3.4-5.0 [facility] Comment on above: Performed By: #### 2 4325-3 #### ELLEN MAHAJAN ([id number]) [facility]) [address] [place] [address] ALP [Catalytic activity/Vol] 83 U/L Normal 33-136 [facility] Comment on above: Performed By: #### 2 4325-3 #### ELLEN MAHAJAN ([id number]) [facility]) [address] [place] [address] ALT With P-5'-P [Catalytic activity/Vol] 69 U/L High 10-52 [facility] Comment on above: Result Comment: Joanie ents treated with Sulfasalazine may generate falsely decreased results for ALT. Performed By: #### 2 4325-3 #### ELLEN MAHAJAN ([id number]) [facility]) [address] [place] [address] AST With P-5'-P [Catalytic activity/Vol] 113 U/L High 9-39 [facility] Comment on above: Performed By: #### 2 4325-3 #### ELLEN MAHAJAN ([id number]) [facility]) [address] [place] [address] Bilirubin [Mass/Vol] 0.3 mg/dL Normal 0.0-1.2 [facility] Comment on above: Performed By: #### 2 4325-3 #### ELLEN MAHAJAN ([id number]) [facility]) [address] [place] [address] 34381 Bilirubin.direct [Mass/Vol] 0.1 mg/dL Normal 0.0-0.3 [facility] Comment on above: Performed By: #### 2 4325-3 #### ELLEN MAHAJAN ([id number]) [facility]) [address] [place] [address] Protein [Mass/Vol] 6.4 g/dL Normal 6.4-8.2 [facility] Comment on above: Performed By: #### 2 4325-3 #### ELLEN MAHAJAN ([id number]) [facility]) [address] [place] [address] 87670 Lipaseon 04-23-2025 Lipase [Catalytic activity/Vol] 51 U/L 9 - 82 U/L [facility] Comment on above: H-wktqqp-x-benzoquin one imine (metabolite of Acetaminophen)will generate erroneously low results in samples for patients that have taken toxic doses of acetaminophen. Lipase [Catalytic activity/V ol]on 04-23-2025 Interpretation and review of laboratory results Normal [facility] Venipuncture immediately after or during the administration of Metamizole may lead to falsely low results. Testing should be performed immediately prior to Metamizole dosing. [facility] No Panel Informationon 04-23 [facility] Interpretation and review of laboratory results Normal [facility] PT Coag (PPP) [Time]on 04-23 INR Coag (PPP) [Relative time] 1 {INR} 0.9 - 1.1 [facility] INR Coag (PPP) [Relative time] 1.0 Normal 0.9-1.1 [facility] Comment on above: Performed By: #### 5 902-2 #### ELLEN MAHAJAN ([id number]) [facility]) [address] [place], [place] [id number] Protime-INRon 04-23-2025 PT Coag (PPP) [Time] 10.9 s [facility] Triacylglycerol lipaseon Lipase [Catalytic activity/Vol] 51 U/L Normal 9-82 [facility] Comment on above: Order Comment: Venip uncture immediately after or during the administration of Metamizole may lead to falsely low results. Testing should be performed immediately prior to Metamizole dosing. Result Comment: N-ac dnyv-e-njmsvfwkjavt imine (metabolite of Acetaminophen)will generate erroneously low results in samples for patients that have taken toxic doses of acetaminophen. Performed By: #### 3 040-3 #### ELLEN MAHAJAN ([id number]) [facility] ([facility]) [address] [place], [place] [id number] Tropinin I.cardiac panel Hig h sensitivity methodon 04-23-2025 Interpretation and review of laboratory results Normal [facility] Less than 99th percentile of normal range cutoff- Female and children under 18 years old <14 ng/L; Male <21 ng/L: Negative Repeat testing should be performed if clinically indicated. Female and children under 18 years old 14-50 ng/L; Male 21-50 ng/L: Consistent with possible cardiac damage and possible increased clinical risk. Serial measurements may help to assess extent of myocardial damage. >50 ng/L: Consistent with cardiac damage, increased clinical risk and myocardial infarction. Serial measurements may help assess extent of myocardial damage. NOTE: Children less than 1 year old may have higher baseline troponin levels and results should be interpreted in conjunction with the overall clinical context. NOTE: Troponin I testing is performed using a different testing methodology at [facility] than at other [facility] hospital. Direct result comparisons should only be made within the same method. [facility] Troponin I, High Sensitivity , Initialon 04-23-2025 Tropinin I.cardiac panel High sensitivity method 5 ng/L 0 - 20 ng/L [facility] Troponin I.cardiac panelon 0 04-23-2025 Tropinin I.cardiac panel High sensitivity method 5 ng/L Normal 0-20 [facility] Comment on above: Order Comment: Less than 99th percentile of normal range cutoff- Female and children under 18 years old <14 ng/L; Male <21 ng/L: Negative Repeat testing should be performed if clinically indicated. Female and children under 18 years old 14-50 ng/L; Male 21-50 ng/L: Consistent with possible cardiac damage and possible increased clinical risk. Serial measurements may help to assess extent of myocardial damage. >50 ng/L: Consistent with cardiac damage, increased clinical risk and myocardial infarction. Serial measurements may help assess extent of myocardial damage. NOTE: Children less than 1 year old may have higher baseline troponin levels and results should be interpreted in conjunction with the overall clinical context. NOTE: Troponin I testing is performed using a different testing methodology at [facility] than at other [facility]. Direct result comparisons should only be made within the same method. Performed By: #### 8 9577-1 #### HUGHES ZAINA ([id number]) [facility] ([facility]) [address] [place] [address] Tropinin I.cardiac panel High sensitivity method 5 ng/L Normal 0-20 [facility] Comment on above: Order Comment: Less than 99th percentile of normal range cutoff- Female and children under 18 years old <14 ng/L; Male <21 ng/L: Negative Repeat testing should be performed if clinically indicated. Female and children under 18 years old 14-50 ng/L; Male 21-50 ng/L: Consistent with possible cardiac damage and possible increased clinical risk. Serial measurements may help to assess extent of myocardial damage. >50 ng/L: Consistent with cardiac damage, increased clinical risk and myocardial infarction. Serial measurements may help assess extent of myocardial damage. NOTE: Children less than 1 year old may have higher baseline troponin levels and results should be interpreted in conjunction with the overall clinical context. NOTE: Troponin I testing is performed using a different testing methodology at [facility] than at other [facility]. Direct result comparisons should only be made within the same method. Performed By: #### 8 9577-1 #### HUGHES ZAINA ([id number]) [facility] ([facility]) [facility] [place] [id number] XR CHEST 1 VIEWon 04-23-2025 XR CHEST 1 VIEW STUDY: Chest Radiograph; 04/23/2025 10:32 PM. INDICATION: Chest pain. COMPARISON: None ACCESSION NUMBER(S): [id number] ORDERING CLINICIAN: JUSTINA KIM TECHNIQUE: Frontal chest was obtained at 22:32 hours. FINDINGS: CARDIOMEDIASTINAL SILHOUETTE: Cardiomediastinal silhouette is normal in size and configuration. LUNGS: There is a band of atelectasis at the left lung base with slightly diminished inspiration. No focal airspace consolidation is identified. ABDOMEN: No remarkable upper abdominal findings. BONES: No acute osseous changes. IMPRESSION: No acute cardiopulmonary disease. Signed by Rom Torres [facility] XR Chest Single viewon 04-23 No acute cardiopulmonary disease. Signed by Rom Torres TELERADIOLOGY STUDY: Chest Radiograph; 04/23/2025 10:32 PM. INDICATION: Chest pain. COMPARISON: None ACCESSION NUMBER(S): [id number] ORDERING CLINICIAN: JUSTINA KIM TECHNIQUE: Frontal chest was obtained at 22:32 hours. FINDINGS: CARDIOMEDIASTINAL SILHOUETTE: Cardiomediastinal silhouette is normal in size and configuration. LUNGS: There is a band of atelectasis at the left lung base with slightly diminished inspiration. No focal airspace consolidation is identified. ABDOMEN: No remarkable upper abdominal findings. BONES: No acute osseous changes. TELERADIOLOGY Rom Torres MD - 04/23/2025 STUDY: Chest Radiograph; 04/23/2025 10:32 PM. INDICATION: Chest pain. COMPARISON: None ACCESSION NUMBER(S): [id number] ORDERING CLINICIAN: JUSTINA KIM TECHNIQUE: Frontal chest was obtained at 22:32 hours. FINDINGS: CARDIOMEDIASTINAL SILHOUETTE: Cardiomediastinal silhouette is normal in size and configuration. LUNGS: There is a band of atelectasis at the left lung base with slightly diminished inspiration. No focal airspace consolidation is identified. ABDOMEN: No remarkable upper abdominal findings. BONES: No acute osseous changes. IMPRESSION: No acute cardiopulmonary disease. Signed by Rom Torres [facility] Work Phone: Radiology Study observation (narrative) [facility] Work Phone: XR Chest Single viewOrdered By: Rom Torres on 04-23-2025 [facility] Work Phone: aPTT Coag (PPP) [Time]on The APTT is no longe r used for monitoring Unfractionated Heparin Therapy. For monitoring Heparin Therapy, use the Heparin Assay. [facility] CNOVon 03-18-2025 CNOV Office Visit (INTMWS ) HOLLIE CULLEN ([id number]) 1950 M Date Time Provider Department 03/18/25 9:00 AM ERWIN GARCIA INTMWS During your visit today, we recorded the following information about you: Temperature Pulse Blood pressure Weight 98.1 degrees 77/minute 112/72 102.7 kg Height 1.78 m Erwin Garcia MD 03/18/2025 10:10 AM Signed Hollie Cullen is a 74 year old male here for a Medicare wellness visit. Medicare Health Risk Assessment General Health Fair Exercise: Minutes/Day 30 min Exercise: Days/Week 5 days Alcohol: Daily Use 4 or more times a week Alcohol: Drinks/Day 1 or 2 Alcohol: 6 or more drinks Never Feel off balance No Concerns: Teeth/Dentures No Concerns: Sexual function No Troubled by feelings None of the above Frequency: Eating healthy diet Nearly every day ADLs requiring help None of the above Safety precautions in home/vehicle Yes Smoke, vape, chews tobacco Yes, but I'm not ready to quit Difficulty hearing Yes Difficulty seeing No Current Providers Specialists: I have reviewed specialist-related care of the patient in the medical record. Current care team: Patient Care Team: Erwin Garcia MD as PCP - General (Internal Medicine) Khadijah Raman APRN.RIGHT OF WAY AGENT as Fire Extinguisher Tester (Internal Medicine) Isael Lebron APRN, CNP (Lung Cancer Screening) Outside specialists seen: Kentrell Romero MD (Urology) Elana Richmond MD (Surgery) Juan Manuel Vázquez OD (Optometry) Shyam Stark MD (Dermatology- [facility]) Medical/Family history review Reviewed and updated problem list, medical/surgical/family /social history, medications, and allergies. Opioid use review Opioid Medications (last 90 days) No data to display Anxiety/Depression screening Recommendation: no further intervention at this time Cognitive screening Cognitive screening reviewed and Patient declined Mini-Cog test. Functional Observation Was the patient's Timed Up AND Go test unsteady or >= 12 seconds? No Advance Care Planning Patient did not wish or was not able to name a surrogate decision maker or provide an advance care plan Measurements BP 112/72 Pulse 77 Temp 36.7 ?C (98.1 ?F) (Temporal) Ht 178 cm (5' 10.08) Wt 102.7 kg (226 lb 6.6 oz) SpO2 99% BMI 32.41 kg/m? Vision Screening: Follows with optometry/ophthalmology Assessment/Plan Medicare annual wellness visit, subsequent (Z00.00) - Counseled on healthy diet and regular exercise - Fall avoidance information provided - Personalized prevention plan provided - Discussed need for and benefit of weight loss. BMI 32.41 kg/(m2) - Smoking cessation encouraged; discussed risks to health and quitting strategies. Patient is not ready to quit Erwin Garcia MD 03/18/2025 9:43 AM Addendum Call for blood work next year. Screening schedule The following prevention plan is recommended: There are no preventive care reminders to display for this patient. WHAT YOU CAN DO TO PREVENT FALLS Many falls can be prevented. By making some changes, you can lower your chances of falling. Four things YOU can do to prevent falls for you* and your caregiver 1. Begin a regular exercise program Exercise is one of the most important ways to lower your chances of falling. It makes you stronger and helps you feel better. Exercises that improve balance and coordination (like Alexander Chi) are the most helpful. Lack of exercise leads to weakness and increases your chances of falling. Ask your doctor or health care provider about the best type of exercise program for you. 2. Have your health care provider review your medicines Have your doctor or pharmacist review all the medicines you take, even tdro-mdg-hbukiue medicines. As you get older, the way medicines work in your body can change. Some medicines, or combinations of medicines, can make you sleepy or dizzy and can cause you to fall. 3. Have your vision checked Have your eyes checked by an eye doctor at least once a year. You may be wearing the wrong glasses or have a condition like glaucoma or cataracts that limits your vision. Poor vision can increase your chances of falling. 4. Make your home safer About half of all falls happen at home. To make your home safer: Remove things you can trip over (like papers, books, clothes, and shoes) from stairs and places where you walk. Remove small throw rugs or use double-sided tape to keep the rugs from slipping. Keep items you use often in cabinets you can reach easily without using a step stool. Have grab bars put in next to your toilet and in the tub or shower. Use non-slip mats in the bathtub and on shower floors. Improve the lighting in your home. As you get older, you need brighter lights to see well. Hang light-weight curtains or shades to reduce glare. Have handrails and lights put in on all staircases. (more content not included)... Normal [facility] CBC panel Auto (Bld)on 03-15 Erythrocyte distribution width (RBC) [Ratio] 13.4 % Normal 11.5-15.0 [facility] Comment on above: Order Comment: Speci men Type: BLOOD SPECIMEN Ordering Facility: [facility] Address: [address] [place] [address] Performed By: #### 5 8410-2 #### [facility] CLIA [id number] [address] [place] [address] [place] Hematocrit (Bld) [Volume fraction] 44.0 % Normal 39.0-51.0 [facility] Comment on above: Order Comment: Speci men Type: BLOOD SPECIMEN Ordering Facility: [facility] Address: [address] [place] [address] Performed By: #### 5 8410-2 #### [facility] CLIA [id number] [address] [place] [address] [place] Hemoglobin (Bld) [Mass/Vol] 14.1 g/dL Normal 13.0-17.0 [facility] Comment on above: Order Comment: Speci men Type: BLOOD SPECIMEN Ordering Facility: [facility] Address: [address] [place] [address] Performed By: #### 5 8410-2 #### [facility] CLIA [id number] [address] [place] [address] [place] MCH (RBC) [Entitic mass] 27.6 pg Normal 26.0-34.0 [facility] Comment on above: Order Comment: Speci men Type: BLOOD SPECIMEN Ordering Facility: [facility] Address: [address] [place] [address] Performed By: #### 5 8410-2 #### [facility] CLIA [id number] [address] [place] [address] [place] MCHC (RBC) [Mass/Vol] 32.0 g/dL Normal 30.5-36.0 [facility] Comment on above: Order Comment: Speci men Type: BLOOD SPECIMEN Ordering Facility: [facility] Address: [address] [place] [address] Performed By: #### 5 8410-2 #### [facility] CLIA [id number] [address] [place] [address] [place] MCV (RBC) [Entitic vol] 86.1 fL Normal 80.0-100.0 [facility] Comment on above: Order Comment: Speci men Type: BLOOD SPECIMEN Ordering Facility: [facility] Address: [address] [place] [address] Performed By: #### 5 8410-2 #### [facility] CLIA [id number] [address] [place] [address] [place] Nucleated RBC (Bld) [#/Vol] 10*3/uL Normal <0.01 [facility] Comment on above: Order Comment: Speci men Type: BLOOD SPECIMEN Ordering Facility: [facility] Address: [address] [place] [address] Performed By: #### 5 8410-2 #### [facility] CLIA [id number] [address] [place] [address] [place] Platelet mean volume (Bld) [Entitic vol] 11.2 fL Normal 9.0-12.7 [facility] Comment on above: Order Comment: Speci men Type: BLOOD SPECIMEN Ordering Facility: [facility] Address: [address] [place] [address] Performed By: #### 5 8410-2 #### [facility] CLIA [id number] [address] [place] [address] [place] Platelets (Bld) [#/Vol] 242 10*3/uL Normal 150-400 [facility] Comment on above: Order Comment: Speci men Type: BLOOD SPECIMEN Ordering Facility: [facility] Address: [address] [place] [address] Performed By: #### 5 8410-2 #### [facility] CLIA [id number] [address] [place] [address] [place] RBC (Bld) [#/Vol] 5.11 10*6/uL Normal 4.20-6.00 [facility] Comment on above: Order Comment: Speci men Type: BLOOD SPECIMEN Ordering Facility: [facility] Address: [address] [place] [address] Performed By: #### 5 8410-2 #### [facility] CLIA [id number] [address] [id number] [address] [place] WBC (Bld) [#/Vol] 5.95 10*3/uL Normal 3.70-11.00 [facility] Comment on above: Order Comment: Speci men Type: BLOOD SPECIMEN Ordering Facility: [facility] Address: [address] [place] [address] Performed By: #### 5 8410-2 #### [facility] CLIA [id number] [address] [place] [address] [place] Comprehensive metabolic 2000 panelon 03-15-2025 Albumin [Mass/Vol] 4.2 g/dL Normal 3.9-4.9 [facility] Comment on above: Order Comment: Speci men Type: BLOOD SPECIMEN Ordering Facility: [facility] Address: [address] [place] [address] Performed By: #### 2 4331-1, 94654-1 #### [facility] CLIA [id number] [address] [place] [address] [place] ALP [Catalytic activity/Vol] 94 U/L Normal 38-113 [facility] Comment on above: Order Comment: Speci men Type: BLOOD SPECIMEN Ordering Facility: [facility] Address: [address] [place] [address] Performed By: #### 2 4331-1, 15990-9 #### [facility] CLIA [id number] [address] [place] [address] [place] ALT [Catalytic activity/Vol] 28 U/L Normal 10-54 [facility] Comment on above: Order Comment: Speci men Type: BLOOD SPECIMEN Ordering Facility: [facility] Address: [address] [place] [address] Performed By: #### 2 4331-1, 04051-5 #### [facility] CLIA [id number] [address] [place] [address] [place] Anion gap [Moles/Vol] 9 mmol/L Normal 8-15 [facility] Comment on above: Order Comment: Speci men Type: BLOOD SPECIMEN Ordering Facility: [facility] Address: [address] [place] [address] Performed By: #### 2 4331-1, 81455-3 #### [facility] CLIA [id number] [address] [place] [address] [place] AST [Catalytic activity/Vol] 20 U/L Normal 14-40 [facility] Comment on above: Order Comment: Speci men Type: BLOOD SPECIMEN Ordering Facility: [facility] Address: [address] [place] [address] Performed By: #### 2 4331-1, 53343-0 #### [facility] CLIA [id number] [address] [place] [address] [place] Bilirubin [Mass/Vol] 0.3 mg/dL Normal 0.2-1.3 [facility] Comment on above: Order Comment: Speci men Type: BLOOD SPECIMEN Ordering Facility: [facility] Address: [address] [place] [address] Performed By: #### 2 4331-1, 87431-0 #### [facility] CLIA [id number] [address] [place] [address] [place] Calcium [Mass/Vol] 9.6 mg/dL Normal 8.5-10.2 [facility] Comment on above: Order Comment: Speci men Type: BLOOD SPECIMEN Ordering Facility: [facility] Address: [address] [place] [address] Performed By: #### 2 4331-1, 19719-9 #### [facility] CLIA [id number] [address] [place] [address] [place] Chloride [Moles/Vol] 104 mmol/L Normal 98-107 [facility] Comment on above: Order Comment: Speci men Type: BLOOD SPECIMEN Ordering Facility: [facility] Address: [address] [place] [address] Performed By: #### 2 4331-1, 37897-1 #### [facility] CLIA [id number] [address] [place] [address] [place] CO2 [Moles/Vol] 26 mmol/L Normal 22-30 [facility] Comment on above: Order Comment: Speci men Type: BLOOD SPECIMEN Ordering Facility: [facility] Address: [address] [place] [address] Performed By: #### 2 4331-, #### [facility] CLIA [id number] [address] [place] [address] [place] Creatinine [Mass/Vol] 1.44 mg/dL High 0.73-1.22 [facility] Comment on above: Order Comment: Speci men Type: BLOOD SPECIMEN Ordering Facility: [facility] Address: [address] [place] [address] Performed By: #### 2 4331-, #### [facility] CLIA [id number] [address] [place] [address] [place] Creatinine and Glomerular filtration rate.predicted panel (S/P/Bld) 52 mL/min/1.73m??? Low >=60 [facility] Comment on above: Order Comment: Speci men Type: BLOOD SPECIMEN Ordering Facility: [facility] Address: [address] [place] [address] Result Comment: Gayatri mated Glomerular Filtration Rate (eGFR) is calculated using the 2020 CKD-EPI creatinine equation. This equation utilizes serum creatinine, sex, and age as parameters. The creatinine assay has traceable calibration to isotope dilution-mass spectrometry. Refer to KDIGO guidelines for clinical interpretation. In patients with unstable renal function, e.g. those with acute kidney injury, the eGFR may not accurately reflect actual GFR. Performed By: #### 2 4331-1, 55868-6 #### [facility] CLIA [id number] [address] [place] [address] [place] Glucose [Mass/Vol] 113 mg/dL High 74-99 [facility] Comment on above: Order Comment: Bird reynoso Type: BLOOD SPECIMEN Ordering Facility: [facility] Address: [address] [place] [address] Result Comment: The [place] Diabetes Association (ADA) provides guidance for cutoff values for fasting glucose and random glucose. The ADA defines fasting as no caloric intake for at least 8 hours. Fasting plasma glucose results between 100 to 125 mg/dL indicate increased risk for diabetes (prediabetes). Fasting plasma glucose results greater than or equal to 126 mg/dL meet the criteria for diagnosis of diabetes. In the absence of unequivocal hyperglycemia, results should be confirmed by repeat testing. In a patient with classic symptoms of hyperglycemia or hyperglycemic crisis, random plasma glucose results greater than or equal to 200 mg/dL meet the criteria for diagnosis of diabetes. Reference: Standards of Medical Care in Diabetes 2016, [place] Diabetes Association. Diabetes Care. 2016.39(Suppl 1). Performed By: #### 2 4331-1, 71628-4 #### [facility] CLIA [id number] [address] [place] [address] [place] Potassium [Moles/Vol] 4.5 mmol/L Normal 3.7-5.1 [facility] Comment on above: Order Comment: Bird reynoso Type: BLOOD SPECIMEN Ordering Facility: [facility] Address: [address] [place] [address] Performed By: #### 2 4331-1, 31985-9 #### [facility] CLIA [id number] [address] [place] [address] [place] Protein [Mass/Vol] 7.0 g/dL Normal 6.3-8.0 [facility] Comment on above: Order Comment: Bird reynoso Type: BLOOD SPECIMEN Ordering Facility: [facility] Address: [address] [place] [address] Performed By: #### 2 4331-1, 95464-7 #### [facility] CLIA [id number] [address] [place] [address] [place] Sodium [Moles/Vol] 139 mmol/L Normal 136-144 [facility] Comment on above: Order Comment: Bird reynoso Type: BLOOD SPECIMEN Ordering Facility: [facility] Address: [address] [place] [address] Performed By: #### 2 4331-1, 49604-2 #### [facility] CLIA [id number] [address] [place] [address] [place] Urea nitrogen [Mass/Vol] 18 mg/dL Normal 9-24 [facility] Comment on above: Order Comment: Bird men Type: BLOOD SPECIMEN Ordering Facility: [facility] Address: [address] [place] [address] Performed By: #### 2 4331-1, 52243-1 #### [facility] CLIA [id number] [address] [place] [address] [place] HbA1c (Bld)on 03-15-2025 Average glucose Estimated from glycated hemoglobin (Bld) [Mass/Vol] 128 mg/dL Normal [facility] Comment on above: Order Comment: Bird reynoso Type: BLOOD SPECIMEN Ordering Facility: [facility] Address: [address] [place] [address] Result Comment: eAG: (Estimated average glucose) is a calculated value from HgbA1c and is textile designs sales representative of the average blood glucose level in the last 2-3 month period. Performed By: #### 5 5454-3 #### [facility] CLIA [id number] [address] [place] [address] [place] HbA1c (Bld) [Mass fraction] 6.1 % High 4.3-5.6 [facility] Comment on above: Order Comment: Bird reynoso Type: BLOOD SPECIMEN Ordering Facility: [facility] Address: [address] [place] [address] Result Comment: [place] Diabetes Association guidelines indicate that patients with HgbA1c in the range 5.7-6.4% are at increased risk for development of diabetes, and intervention by lifestyle modification may be beneficial. HgbA1c greater or equal to 6.5% is considered diagnostic of diabetes. Performed By: #### 5 5454-3 #### [facility] CLIA [id number] [address] [place] [address] [place] Lipid 1996 panelon 5 Cholesterol [Mass/Vol] 161 mg/dL Normal <200 [facility] Comment on above: Order Comment: Speci men Type: BLOOD SPECIMEN Ordering Facility: [facility] Address: [address] [place] [address] Result Comment: <200 mg/dL, Desirable 200-239 mg/dL, Borderline high >239 mg/dL, High Performed By: #### 2 4331-1, 14232-2 #### [facility] CLIA [id number] [address] [place] [address] [place] [facility] Cholesterol in HDL [Mass/Vol] 41 mg/dL Normal >39 [facility] Comment on above: Order Comment: Bird reynoso Type: BLOOD SPECIMEN Ordering Facility: [facility] Address: [address] [place] [address] Result Comment: 40-5 9 mg/dL, Acceptable >59 mg/dL, High: Negative risk factor for coronary heart disease <40 mg/dL, Low: Positive risk factor for coronary heart disease Performed By: #### 2 4331-1, 24167-4 #### [facility] CLIA [id number] [address] [place] [address] [place] Cholesterol in LDL [Mass/Vol] 98 mg/dL Normal <100 [facility] Comment on above: Order Comment: [facility] Type: BLOOD SPECIMEN [facility] [facility] Address: [address] [place] [address] Result Comment: <100 mg/dL, Optimal 100-129 mg/dL, Near optimal/above optimal 130-159 mg/dL, Borderline high 160-189 mg/dL, High >189 mg/dL, Very high Secondary prevention optimal LDL Cholesterol levels are recommended to be <70 mg/dL LDL cholesterol is calculated using the Cobian-NIH equation. Performed By: #### 2 4331-1, 88250-5 #### [facility] CLIA [id number] [address] [place] [address] [place] Cholesterol in LDL/Cholesterol in HDL [Mass ratio] 2.39 {ratio} Normal <2.54 [facility] Comment on above: Order Comment: [facility]elinai men Type: BLOOD SPECIMEN Ordering Facility: [facility] Address: [address] [place] [address] Result Comment: Refe rence: 1. National Cholesterol Education Program ATP III Guideline At-A-Glance Quick Desk Reference: National Heart, Lung, and Blood Robinson. National Institutes of Health. 2001: NIH Publication No. 01-3305. 2. An International Atherosclerosis Society position paper: global recommendations for the management of dyslipidemia: executive summary, Atherosclerosis. 2014: 232(2):410-413. Performed By: #### 2 4331-1, 04115-0 #### [facility] CLIA [id number] [address] [place] [address] [place] Cholesterol in VLDL [Mass/Vol] 20 mg/dL Normal <30 [facility] Comment on above: Order Comment: Carmelinai men Type: BLOOD SPECIMEN Ordering Facility: [facility] Address: [address] [place] [address] Performed By: #### 2 4331-1, #### [facility] CLIA [id number] [address] [place] [address] [place] Cholesterol non HDL [Mass/Vol] 120 mg/dL Normal <130 [facility] Comment on above: Order Comment: Speci men Type: BLOOD SPECIMEN Ordering Facility: [facility] Address: [address] [place] [address] Result Comment: <130 mg/dL, Optimal 130-159 mg/dL, Near optimal/above optimal 160-189 mg/dL, Borderline high 190-219 mg/dL, High >219 mg/dL, Very high Secondary prevention optimal non HDL Cholesterol levels are recommended to be <100 mg/dL Performed By: #### 2 4331-1, 18642-0 #### [facility] CLIA [id number] [address] [place] [address] [place] Cholesterol.total/Chol esterol in HDL [Mass ratio] 3.93 {ratio} Normal <5.10 [facility] Comment on above: Order Comment: Speci men Type: BLOOD SPECIMEN Ordering Facility: [facility] Address: [address] [place] [address] Performed By: #### 2 4331-1, #### [facility] CLIA [id number] [address] [place] [address] [place] FASTING TIME 15 hrs Normal [facility] Comment on above: Order Comment: Speci men Type: BLOOD SPECIMEN Ordering Facility: [facility] Address: [address] [place] [address] Performed By: #### 2 4331-1, #### [facility] CLIA [id number] [address] [place] [address] [place] Triglyceride [Mass/Vol] 123 mg/dL Normal <150 [facility] Comment on above: Order Comment: Speci men Type: BLOOD SPECIMEN Ordering Facility: [facility] Address: [address] [place] [address] Result Comment: <150 mg/dL, Normal 150-199 mg/dL, Borderline high 200-499 mg/dL, High >499 mg/dL, Very high Performed By: #### 2 4331-1, #### [facility] CLIA [id number] [address] [place] [address] [place] CNPTrudy 03-14-2025 YONISN Telephone (FAMPWS) HOLLIE CULLEN L ([id number]) 1950 M Date Time Provider Department 03/14/25 ERWIN GARCIA During your visit today, we recorded the following information about you: Patricia Mckinney LPN 03/14/2025 9:13 AM Signed Pt's calls to report that pt has an appt 03/18 and is asking if pt needs to get labs done before appt. reports they will be in town tomorrow and would like to get the labs done then since they live in [place]. Call when labs have been ordered. MARCO A Braden Helen E, LPN 03/14/2025 2:37 PM Signed notified fasting labs have been ordered. Manda Gr LPN Allergies As of Date: 03/14/2025 (No Known Allergies) Date Reviewed: 06/14/2024 Reviewed by: Isael Lebron APRN.RIGHT OF WAY AGENT - Fully Assessed Reason for Visit: Lab Orders [1688] Visit Diagnoses:Impaired fasting glucose [R73.01] Stage 3a chronic kidney disease (HCC) [N18.31] Hyperlipidemia, unspecified hyperlipidemia type [E78.5] Order(s):HEMOGLOBIN A1C [CUSMN7T] Order #: [id number] FUTURE COMPREHENSIVE METABOLIC PANEL [SQCMP] Order #: [id number] FUTURE LIPID PANEL, FASTING [SQLIPB] Order #: [id number] FUTURE COMPLETE BLOOD COUNT [SQCBC] Order #: [id number] FUTURE Prescriptions as of 03/14/2025 - simvastatin (ZOCOR) 40 mg tablet Take 1 tablet by mouth daily at bedtime. - dutasteride (AVODART) 0.5 mg capsule Take 1 capsule by mouth once daily. - montelukast (SINGULAIR) 10 mg tablet Take 1 tablet by mouth daily at bedtime. For allergies. - docusate sodium (COLACE) 100 mg capsule Take 1 capsule by mouth two times a day as needed for constipation. - imiquimod (ALDARA) 5 % cream Apply 1 application to affected area three times a week. - triamcinolone acetonide (KENALOG) 0.1 % cream Apply 1 application to affected area twice daily as needed. forehead - MULTIVITAMIN TAB Take one(1) tablet daily. 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 [place], [place], [address](370) BUN/CRE Normal 10-20 [facility] Comment on above: Result Comment: Canc elled via OM: Order cancelled - Patient discharged Performed By: #### L 100.0100, L500.2500 ####[facility] [address] [place], [address] Calcium Normal 7.6-11.0 [facility] Comment on above: Result Comment: Canc elled via OM: Order cancelled - Patient discharged Performed By: #### L 100.0100, L500.2500 ####[facility] [address] [place], [address] CL Normal 98-108 [facility] Comment on above: Result Comment: Canc elled via OM: Order cancelled - Patient discharged Performed By: #### L 100.0100, L500.2500 ####[facility] [address] [place], [address] CO2 Normal 21.0-32.0 [facility] Comment on above: Result Comment: Canc elled via OM: Order cancelled - Patient discharged Performed By: #### L 100.0100, L500.2500 ####[facility] [address] [place], [address] CREAT,SERUM Normal 0.70-1.20 [facility] Comment on above: Result Comment: Canc elled via OM: Order cancelled - Patient discharged Performed By: #### L 100.0100, L500.2500 ####[facility] [address] [place], [address] eGFR Normal >60 [facility] Comment on above: Result Comment: Canc elled via OM: Order cancelled - Patient discharged Performed By: #### L 100.0100, L500.2500 ####[facility] [address] [place], [address] GAP Normal 5-15 [facility] Comment on above: Result Comment: Canc elled via OM: Order cancelled - Patient discharged Performed By: #### L 100.0100, L500.2500 ####[facility] [address] [place], [address] GLU Normal 70-99 [facility] Comment on above: Result Comment: Canc elled via OM: Order cancelled - Patient discharged Performed By: #### L 100.0100, L500.2500 ####[facility] [address] [place], [address] Potassium Normal 3.3-5.1 [facility] Comment on above: Result Comment: Canc elled via OM: Order cancelled - Patient discharged Performed By: #### L 100.0100, L500.2500 ####[facility] [address] [place], [address] Basic Metabolic Profile (BMP) Normal 133-145 [facility] Comment on above: Result Comment: Canc elled via OM: Order cancelled - Patient discharged Performed By: #### L 100.0100, L500.2500 ####[facility] [address] [place], [address] CBC W/Diff, Automatedon 02-15 Absolute Neut Normal 2.0-7.7 [facility] Comment on above: Result Comment: Canc elled via OM: Order cancelled - Patient discharged Performed By: #### L 100.0100, L500.2500 ####[facility] [address] [place], [address] HCT Normal 40-54 [facility] Comment on above: Result Comment: Canc elled via OM: Order cancelled - Patient discharged Performed By: #### L 100.0100, L500.2500 ####[facility] [address] [place], [address] HGB Normal 13.0-16.5 [facility] Comment on above: Result Comment: Canc elled via OM: Order cancelled - Patient discharged Performed By: #### L 100.0100, L500.2500 ####[facility] [address] [place], [address] MCH Normal 27.0-32.0 [facility] Comment on above: Result Comment: Canc elled via OM: Order cancelled - Patient discharged Performed By: #### L 100.0100, L500.2500 ####[facility] [address] [place], [address] MCHC Normal 32-36 [facility] Comment on above: Result Comment: Canc elled via OM: Order cancelled - Patient discharged Performed By: #### L 100.0100, L500.2500 ####[facility] [address] [place], [address] MCV Normal 80-94 [facility] Comment on above: Result Comment: Canc elled via OM: Order cancelled - Patient discharged Performed By: #### L 100.0100, L500.2500 ####[facility] [address] [place], [address] NEUT% Normal 47-70 [facility] Comment on above: Result Comment: Canc elled via OM: Order cancelled - Patient discharged Performed By: #### L 100.0100, L500.2500 ####[facility] [address] [place], [address] PLT Normal 150-450 [facility] Comment on above: Result Comment: Canc elled via OM: Order cancelled - Patient discharged Performed By: #### L 100.0100, L500.2500 ####[facility] [address] [place], [address] RBC Normal 4.6-6.2 [facility] Comment on above: Result Comment: Canc elled via OM: Order cancelled - Patient discharged Performed By: #### L 100.0100, L500.2500 ####[facility] [address] [place], [address] RDW CV Normal 11.6-14.6 [facility] Comment on above: Result Comment: Canc elled via OM: Order cancelled - Patient discharged Performed By: #### L 100.0100, L500.2500 ####[facility] [address] [place], [address] RDW SD Normal 35.1-43.9 [facility] Comment on above: Result Comment: Canc elled via OM: Order cancelled - Patient discharged Performed By: #### L 100.0100, L500.2500 ####[facility] [address] [place], [address] WBC Normal 4.4-11.0 [facility] Comment on above: Result Comment: Canc elled via OM: Order cancelled - Patient discharged Performed By: #### L 100.0100, L500.2500 ####[facility] [address] [place], [address] Absolute neutrophil countOrd ered By: Los Romero on 02-27-2025 Neutrophils (Bld) [#/Vol] 5.1 10*3/uL 2.0-7.7 [facility] Anion gap in Serum or Plasma Ordered By: Los Romero on 02-27-2025 Anion gap [Moles/Vol] 8 mmol/L 5-15 [facility] BUN/creatinine ratioOrdered By: Los Romero on 02-27-2025 Urea nitrogen/Creatinine [Mass ratio] 8.4 mg/mg Low 10-20 [facility] Basic Metabolic Profile (BMP )on 02-27-2025 BUN/CRE 8.4 RATIO Low 10-20 [facility] Comment on above: Performed By: #### L 100.0100, L500.2500 #### [facility] [address] [place], [address] Calcium [Mass/Vol] 7.9 mg/dL Normal 7.6-11.0 [facility] Comment on above: Performed By: #### L 100.0100, L500.2500 #### [facility] [address] [place], [address] Chloride [Moles/Vol] 112 mmol/L High 98-108 [facility] Comment on above: Performed By: #### L 100.0100, L500.2500 #### [facility] [address] [place], [address] CO2 [Moles/Vol] 20.5 mmol/L Low 21.0-32.0 [facility] Comment on above: Performed By: #### L 100.0100, L500.2500 #### [facility] [address] [place], [address] Creatinine [Mass/Vol] 1.48 mg/dL High 0.70-1.20 [facility] Comment on above: Performed By: #### L 100.0100, L500.2500 #### [facility] [address] [place], [address] ECRCL 54.62 ml/min Normal 50-250 [facility] Comment on above: Performed By: #### L 100.0100, L500.2500 #### [facility] [address] [place], [address] GAP 8 Normal 5-15 [facility] Comment on above: Performed By: #### L 100.0100, L500.2500 #### [facility] [address] [place], [address] GFR/1.73 sq M.predicted among non-blacks MDRD (S/P/Bld) [Vol rate/Area] 50 mL/min/{1.73_m2} Low >60 [facility] Comment on above: Result Comment: mL/m in/1.73m2 CKD-EPI Creatinine Equation (2020) Performed By: #### L 100.0100, L500.2500 #### [facility] [address] [place], [address] Glucose [Mass/Vol] 118 mg/dL High 70-99 [facility] Comment on above: Performed By: #### L 100.0100, L500.2500 #### [facility] [address] [place], [address] Potassium [Moles/Vol] 3.7 mmol/L Normal 3.3-5.1 [facility] Comment on above: Performed By: #### L 100.0100, L500.2500 #### [facility] [address] [place], [address] Sodium [Moles/Vol] 141 mmol/L Normal 133-145 [facility] Comment on above: Performed By: #### L 100.0100, L500.2500 #### [facility] [address] [place], [address] Urea nitrogen [Mass/Vol] 12 mg/dL Normal 4-19 [facility] Comment on above: Performed By: #### L 100.0100, L500.2500 #### [facility] [address] [place], [address] Basophil percentageOrdered B y: Los Romero on 02-27-2025 Basophils/100 WBC (Bld) 0.4 % 0-1 [facility] CBC W/Diff, Automatedon 02-15-2024 Absolute Lymph 1.54 X10 3/uL Normal 0.83-4.51 [facility] Comment on above: Performed By: #### L 100.0100, L500.2500 #### [facility] [address] [place], [address] Absolute Neut 5.1 X10 3/uL Normal 2.0-7.7 [facility] Comment on above: Performed By: #### L 100.0100, L500.2500 #### [facility] [address] [place], [address] Basophils/100 WBC (Bld) 0.4 % Normal 0-1 [facility] Comment on above: Performed By: #### L 100.0100, L500.2500 #### [facility] [address] [place], [address] Eosinophils/100 WBC (Bld) 1.8 % Normal 0-5 [facility] Comment on above: Performed By: #### L 100.0100, L500.2500 #### [facility] [address] [place], [address] Erythrocyte distribution width (RBC) [Ratio] 13.2 % Normal 11.6-14.6 [facility] Comment on above: Performed By: #### L 100.0100, L500.2500 #### [facility] [address] [place], [address] Hematocrit (Bld) [Volume fraction] 32.7 % Low 40-54 [facility] Comment on above: Performed By: #### L 100.0100, L500.2500 #### [facility] [address] [place], [address] Hemoglobin (Bld) [Mass/Vol] 10.9 g/dL Low 13.0-16.5 [facility] Comment on above: Performed By: #### L 100.0100, L500.2500 #### [facility] [address] [place], [address] IG% 0.400 Normal 0.0-0.9 [facility] Comment on above: Result Comment: IG% - Immature Granulocytes (promyelocytes, myelocytes and metamyelocytes) > 1% indicates that a LEFT SHIFT is Present. Performed By: #### L 100.0100, L500.2500 #### [facility] [address] [place], [address] Lymphocytes/100 WBC (Bld) 19.8 % Normal 19-41 [facility] Comment on above: Performed By: #### L 100.0100, L500.2500 #### [facility] [address] [place], [address] MCH (RBC) [Entitic mass] 28.3 pg Normal 27.0-32.0 [facility] Comment on above: Performed By: #### L 100.0100, L500.2500 #### [facility] [address] [place], [address] MCHC (RBC) [Mass/Vol] 33.3 g/dL Normal 32-36 [facility] Comment on above: Performed By: #### L 100.0100, L500.2500 #### [facility] [address] [place], [address] MCV (RBC) [Entitic vol] 84.9 fL Normal 80-94 [facility] Comment on above: Performed By: #### L 100.0100, L500.2500 #### [facility] [address] [place], [address] Monocytes/100 WBC (Bld) 12.2 % High 0-10 [facility] Comment on above: Performed By: #### L 100.0100, L500.2500 #### [facility] [address] [place], [address] Neutrophils/100 WBC (Bld) 65.4 % Normal 47-70 [facility] Comment on above: Performed By: #### L 100.0100, L500.2500 #### [facility] [address] [place], [address] Nucleated RBC (Bld) [#/Vol] 0 10*3/uL Normal 0-5 [facility] Comment on above: Performed By: #### L 100.0100, L500.2500 #### [facility] [address] [place], [address] Platelet mean volume (Bld) [Entitic vol] 11.2 fL Normal 6.2-12.0 [facility] Comment on above: Performed By: #### L 100.0100, L500.2500 #### [facility] [address] [place], [address] Platelets (Bld) [#/Vol] 129 10*3/uL Low 150-450 [facility] Comment on above: Performed By: #### L 100.0100, L500.2500 #### [facility] [address] [place], [address] RBC (Bld) [#/Vol] 3.85 10*6/uL Low 4.6-6.2 [facility] Comment on above: Performed By: #### L 100.0100, L500.2500 #### [facility] [address] [place], [address] RDW SD 40.9 fl Normal 35.1-43.9 [facility] Comment on above: Performed By: #### L 100.0100, L500.2500 #### [facility] [address] [place], [address] WBC (Bld) [#/Vol] 7.8 10*3/uL Normal 4.4-11.0 [facility] Comment on above: Performed By: #### L 100.0100, L500.2500 #### [facility] [address] [place], [address] Carbon dioxide, total [Moles /volume] in Central venous bloodOrdered By: Los Romero on 02-27-2025 CO2 [Moles/Vol] 20.5 mmol/L Low 21.0-32.0 [facility] Chloride assayOrdered By: Naheed Roemro on 02-27-2025 Chloride [Moles/Vol] 112 mmol/L High 98-108 [facility] Eosinophil percentageOrdered By: Los Romero on 02-27-2025 Eosinophils/100 WBC (Bld) 1.8 % 0-5 [facility] Erythrocyte distribution wid th (RBC) [Ratio]Ordered By: Los Romero on 02-27-2025 Erythrocyte distribution width (RBC) [Entitic vol] 40.9 fL 35.1-43.9 [facility] Erythrocyte distribution wid th ratioOrdered By: Los Romero on 02-27-2025 Erythrocyte distribution width (RBC) [Ratio] 13.2 % 11.6-14.6 [facility] Estimation of creatinine umang aranceOrdered By: oLs Romero on 02-27-2025 Estimated Creatinine Clearance Calc 54.62 ml/min 50-250 [facility] GFR/1.73 sq M.predicted gabi g non-blacks MDRD (S/P/Bld) [Vol rate/Area]Ordered By: Los Romero on 02-27-2025 Estimated GFR (MDRD) Non-Af Amer 50 Low >60 [facility] Comment on above: mL/min/1.73m2 CKD-EP I Creatinine Equation (2020) Hematocrit Auto (Bld) [Volum e fraction]Ordered By: Los Romero on 02-27-2025 Hematocrit (Bld) [Volume fraction] 32.7 % Low 40-54 [facility] Hemoglobin measurementOrdere d By: Los Romeor on 02-27-2025 Hemoglobin (Bld) [Mass/Vol] 10.9 g/dL Low 13.0-16.5 [facility] Immature granulocytes/100 WB C Auto (Bld)Ordered By: Los Romero on 02-27-2025 Immature granulocytes/100 WBC (Bld) 0.400 % 0.0-0.9 [facility] Comment on above: IG% - Immature Granu locytes (promyelocytes, myelocytes and metamyelocytes) > 1% indicates that a LEFT SHIFT is Present. Lymphocytes Auto (Unsp spec) [#/Vol]Ordered By: Los Romero on 02-27-2025 Lymphocytes (Bld) [#/Vol] 1.54 10*3/uL 0.83-4.51 [facility] Lymphocytes/100 WBC Auto (Un sp spec)Ordered By: Los Romero on 02-27-2025 Lymphocytes/100 WBC (Bld) 19.8 % 19-41 [facility] MCV (mean corpuscular volume ) determinationOrdered By: Los Romero on 02-27-2025 MCV (RBC) [Entitic vol] 84.9 fL 80-94 [facility] Mean corpuscular hemoglobin (MCH) determinationOrdered By: Los Romero on 02-27-2025 MCH (RBC) [Entitic mass] 28.3 pg 27.0-32.0 [facility] Mean corpuscular hemoglobin concentration (MCHC) determinationOrdered By: Los Romero on 02-27-2025 MCHC (RBC) [Mass/Vol] 33.3 g/dL 32-36 [facility] Mean platelet volume determi nationOrdered By: Los Romero on 02-27-2025 Platelet mean volume (Bld) [Entitic vol] 11.2 fL 6.2-12.0 [facility] Monocyte percentageOrdered B y: Los Romero on 02-27-2025 Monocytes/100 WBC (Bld) 12.2 % High 0-10 [facility] Neutrophil percentageOrdered By: Los Romero on 02-27-2025 Neutrophils/100 WBC (Bld) 65.4 % 47-70 [facility] Nucleated red blood cell per centageOrdered By: Los Romero on 02-27-2025 Nucleated RBC/100 WBC (Bld) [Ratio] 0 % 0-5 [facility] Platelet countOrdered By: Naheed Romero on 02-27-2025 Platelets (Bld) [#/Vol] 129 10*3/uL Low 150-450 [facility] Potassium (Unsp spec) [Mass/ Vol]Ordered By: Los Romero on 02-27-2025 Potassium [Moles/Vol] 3.7 mmol/L 3.3-5.1 [facility] RBC Auto (Bld) [#/Vol]Ordere d By: Los Romero on 02-27-2025 RBC (Bld) [#/Vol] 3.85 10*6/uL Low 4.6-6.2 [facility] Serum creatinine measurement (mass/volume)Ordered By: Los Romero on 02-27-2025 Creatinine [Mass/Vol] 1.48 mg/dL High 0.70-1.20 [facility] Serum glucose measurement (m ass/volume)Ordered By: Los Romero on 02-27-2025 Glucose [Mass/Vol] 118 mg/dL High 70-99 [facility] Serum or plasma calcium rayshawn urement (mass/volume)Ordered By: Los Romero on 02-27-2025 Calcium [Mass/Vol] 7.9 mg/dL 7.6-11.0 [facility] Serum or plasma urea nitroge n measurement (mass/volume)Ordered By: Los Romero on 02-27-2025 Urea nitrogen [Mass/Vol] 12 mg/dL 4-19 [facility] Sodium levelOrdered By: Los Romero on 02-27-2025 Sodium [Moles/Vol] 141 mmol/L 133-145 [facility] White blood cell (WBC) count Ordered By: Los Romero on 02-27-2025 WBC (Bld) [#/Vol] 7.8 10*3/uL 4.4-11.0 [facility] Basic Metabolic Profile (BMP )on 02-26-2025 BUN/CRE 9.7 RATIO Low 10-20 [facility] Comment on above: Performed By: #### L 100.0100, L500.2500 ####[facility] [address] [place], [address] Calcium [Mass/Vol] 8.0 mg/dL Normal 7.6-11.0 [facility] Comment on above: Performed By: #### L 100.0100, L500.2500 ####[facility] [address] [place], [address] Chloride [Moles/Vol] 109 mmol/L High 98-108 [facility] Comment on above: Performed By: #### L 100.0100, L500.2500 ####[facility] [address] [place], [address] CO2 [Moles/Vol] 20.2 mmol/L Low 21.0-32.0 [facility] Comment on above: Performed By: #### L 100.0100, L500.2500 ####[facility] [address] [place], [address] Creatinine [Mass/Vol] 1.54 mg/dL High 0.70-1.20 [facility] Comment on above: Performed By: #### L 100.0100, L500.2500 ####[facility] [address] [place], [address] ECRCL 52.50 ml/min Normal 50-250 [facility] Comment on above: Performed By: #### L 100.0100, L500.2500 ####[facility] [address] [place], [address] GAP 10 Normal 5-15 [facility] Comment on above: Performed By: #### L 100.0100, L500.2500 ####[facility] [address] [place], [address] GFR/1.73 sq M.predicted among non-blacks MDRD (S/P/Bld) [Vol rate/Area] 48 mL/min/{1.73_m2} Low >60 [facility] Comment on above: Result Comment: mL/m in/1.73m2 CKD-EPI Creatinine Equation (2020) Performed By: #### L 100.0100, L500.2500 ####[facility] [address] [place], [address] Glucose [Mass/Vol] 144 mg/dL High 70-99 [facility] Comment on above: Performed By: #### L 100.0100, L500.2500 ####[facility] [address] [place], [address] Potassium [Moles/Vol] 4.2 mmol/L Normal 3.3-5.1 [facility] Comment on above: Performed By: #### L 100.0100, L500.2500 ####[facility] [address] [place], [address] Sodium [Moles/Vol] 139 mmol/L Normal 133-145 [facility] Comment on above: Performed By: #### L 100.0100, L500.2500 ####[facility] [address] [place], [address] Urea nitrogen [Mass/Vol] 15 mg/dL Normal 4-19 [facility] Comment on above: Performed By: #### L 100.0100, L500.2500 ####[facility] [address] [place], [address] CBC W/Diff, Automatedon 02-15 Absolute Lymph 1.15 X10 3/uL Normal 0.83-4.51 [facility] Comment on above: Performed By: #### L 100.0100, L500.2500 ####[facility] [address] [place], [address] Absolute Neut 8.1 X10 3/uL High 2.0-7.7 [facility] Comment on above: Performed By: #### L 100.0100, L500.2500 ####[facility] [address] [place], [address] Basophils/100 WBC (Bld) 0.2 % Normal 0-1 [facility] Comment on above: Performed By: #### L 100.0100, L500.2500 ####[facility] [address] [place], [address] Eosinophils/100 WBC (Bld) 0.1 % Normal 0-5 [facility] Comment on above: Performed By: #### L 100.0100, L500.2500 ####[facility] [address] [place], [address] Erythrocyte distribution width (RBC) [Ratio] 13.2 % Normal 11.6-14.6 [facility] Comment on above: Performed By: #### L 100.0100, L500.2500 ####[facility] [address] [place], [address] Hematocrit (Bld) [Volume fraction] 34.0 % Low 40-54 [facility] Comment on above: Performed By: #### L 100.0100, L500.2500 ####[facility] [address] [place], [address] Hemoglobin (Bld) [Mass/Vol] 11.2 g/dL Low 13.0-16.5 [facility] Comment on above: Performed By: #### L 100.0100, L500.2500 ####[facility] [address] [place], [address] IG% 0.400 Normal 0.0-0.9 [facility] Comment on above: Result Comment: IG% - Immature Granulocytes (promyelocytes, myelocytes and metamyelocytes) > 1% indicates that a LEFT SHIFT is Present. Performed By: #### L 100.0100, L500.2500 ####[facility] [address] [place], [address] Lymphocytes/100 WBC (Bld) 11.0 % Low 19-41 [facility] Comment on above: Performed By: #### L 100.0100, L500.2500 ####[facility] [address] [place], [address] MCH (RBC) [Entitic mass] 28.4 pg Normal 27.0-32.0 [facility] Comment on above: Performed By: #### L 100.0100, L500.2500 ####[facility] [address] [place], [address] MCHC (RBC) [Mass/Vol] 32.9 g/dL Normal 32-36 [facility] Comment on above: Performed By: #### L 100.0100, L500.2500 ####[facility] [address] [place], [address] MCV (RBC) [Entitic vol] 86.3 fL Normal 80-94 [facility] Comment on above: Performed By: #### L 100.0100, L500.2500 ####[facility] [address] [place], [address] Monocytes/100 WBC (Bld) 11.4 % High 0-10 [facility] Comment on above: Performed By: #### L 100.0100, L500.2500 ####[facility] [address] [place], [address] Neutrophils/100 WBC (Bld) 76.9 % High 47-70 [facility] Comment on above: Performed By: #### L 100.0100, L500.2500 ####[facility] [address] [place], [address] Nucleated RBC (Bld) [#/Vol] 0 10*3/uL Normal 0-5 [facility] Comment on above: Performed By: #### L 100.0100, L500.2500 ####[facility] [address] [place], [address] Platelet mean volume (Bld) [Entitic vol] 11.3 fL Normal 6.2-12.0 [facility] Comment on above: Performed By: #### L 100.0100, L500.2500 ####[facility] [address] [place], [address] Platelets (Bld) [#/Vol] 153 10*3/uL Normal 150-450 [facility] Comment on above: Performed By: #### L 100.0100, L500.2500 ####[facility] [address] [place], [address] RBC (Bld) [#/Vol] 3.94 10*6/uL Low 4.6-6.2 [facility] Comment on above: Performed By: #### L 100.0100, L500.2500 ####[facility] [address] [place], [address] RDW SD 41.4 fl Normal 35.1-43.9 [facility] Comment on above: Performed By: #### L 100.0100, L500.2500 ####[facility] [address] [place], [address] WBC (Bld) [#/Vol] 10.5 10*3/uL Normal 4.4-11.0 [facility] Comment on above: Performed By: #### L 100.0100, L500.2500 ####[facility] [address] [place], [address] Discharge Instructionon 02-15 Discharge Instruction [facility] Medical Records Department [address] [facility] [place] [address] Instructions for Home/Discharge Instructions 02/25/25 0944 MR#: [id number] Acct: [id number] Name: HOLLIE CULLEN Rep #: [id number] : 1950 74 From: Los Romero MD PCP: Dr. Erwin Garcia MD Status:REG SDC Discharge Instructions Diet Discharge Diet: No restrictions DC O2, CPAP, BIPAP needs Home O2 Discharge instructions: No Dressing / Incision Discharge Activity: Return to Normal Activity and May Not Drive (while taking narcotic pain medications.) Dressing / Incision Call your doctor if you observe: Fever of 101 or Higher Follow Up Care Please Follow Up With: Los Romero MD When: Call [phone] for an appointment Test Results: Test results from this visit will be discussed in further detail at your follow-up appointment, if applicable. Discharge Plan Admission Primary Reason for Your Visit: Right nephro ureterectomy Attending Provider: Los Romero Primary Care Provider: Erwin Garcia Instructions Print Language: Chadian Discharge Orders/Prescriptions Prescriptions: New oxycodone 5 mg tablet 5 mg PO Q6H PRN (Reason: pain) 7 Days Qty: 14 0RF Continued omeprazole 40 mg capsule,delayed release(DR/EC) 40 mg PO QDAY Qty: 30 3RF Rx Instructions: swallow whole; do not crush, chew, dissolve, cut, break sucralfate 1 gram tablet 1 g PO QACHS Qty: 56 0RF Rx Instructions: Take an hour before meals and at bedtime multivitamin with folic acid [Thera] 1 TABLET tablet 1 tab PO DAILY simvastatin 40 mg tablet 40 mg PO QHS montelukast 10 mg tablet 10 mg PO QHS dutasteride 0.5 mg capsule 0.5 mg PO DAILY Discontinued ciprofloxacin HCl 500 mg tablet 500 mg PO .QD Referrals / Follow Up: Los Romero MD [Med Staff - Active Staff] - Erwin Garcia MD [Primary Care Provider] - Disposition Disposition (needs filled in before D/C Order can be placed): Home, Self Care 02/25/25943 Los Romero MD CC: Dr. Erwin Garcia MD Signed [facility] MR/POSTOP.ANE 02-25-2025 MR/POSTOP[facility] Medical Records Department [address] [place] [address] Anesthesia Postop Eval I 02/25/25 100 MR#: [id number] Acct: [id number] Name: HOLLIE CULLEN Rep #: [id number] : 1950 74 From: Riley Grewal CRNA PCP: Dr. Erwin Garcia MD Status:ADM MARYCHUY Y Race: C Location: [place] [address] Anesthesia: Postop Eval I Current Vital Signs Temperature: 97.6 F Pulse Rate: 66 Blood Pressure: 125/71 Respiratory Rate: 16 Pulse Ox: 95 Oxygen Delivery Method: Room Air Assessment Airway patent: Yes Spontaneous unlabored respirations: Yes Mental status: Awake and Calm nausea: No Vomiting: No Anesthesia Complication: No Fluid Hydration Crystalloid volume administer (ml): 1,600 Total IV fluid infused: 1,600 Progress Note Anesthesia document: Postop Eval 1 completed: Yes 02/25/25 1006 Date Riley Weemsign Signature: Date CC: Signed [facility] MR/RUNBSEEJ8bm 02-25-2025 [facility] Medical Records Department [address] [place] [address] Anesthesia Postop Eval II 02/25/25 1111 MR#: [id number] Acct: [id number] Name: HOLLIE CULLEN Rep #: [id number] : 1950 74 From: José Michael MD PCP: Dr. Erwin Garcia MD Status:ADM MARYCHUY Y Race: C Location: [facility] [id number] Anesthesia Postop Eval I Sum Postop Eval Completion status Anesthesia document: Postop Eval 1 completed: Yes Anesthesia Postop Eval I Summary Anesthesia Postop Eval I Summary: Anesthesia Postop Eval I: Assessment Summary Airway patent Yes 02/25/25 10:06 DIRECTOR [email or web address] Spontaneous unlabored Yes 02/25/25 10:06 DIRECTOR WORK.[email or web address] respirations Mental status Awake,Calm 02/25/25 10:06 DIRECTOR WORK.[email or web address] nausea No 02/25/25 10:06 DIRECTOR WORK.PKEL Vomiting No 02/25/25 10:06 DIRECTOR WORK.[email or web address] Anesthesia Postop Eval I: Fluid Summary Crystalloid volume administer 1,600 02/25/25 10:06 DIRECTOR WORK.[email or web address] (ml) Colloids volume administered ( ml) Blood Product volume administered (ml) Total IV fluid infused 1,600 02/25/25 10:06 DIRECTOR WORK.[email or web address] Anesthesia Postop Eval I: Summary Notes Anesthesia Complication No 02/25/25 10:06 DIRECTOR WORK.[email or web address] Anesthesia Complication Comment: Post-operative progress note Anesthesia: Postop Eval II Evaluation Mental status: Awake Pain Level: 0 nausea: No Vomiting: No 02/25/25 1111 Date José Michael MD Cosigner Signature: Date CC: Signed Normal [facility] Operative Reporton Operative Report [facility] Medical Records Department [address] [place] [address] Operative Report 02/25/25 0944 MR#: [id number] Acct: [id number] Name: HOLLIE CULLEN Rep #: [id number] : 1950 74 From: Los Romero MD PCP: Dr. 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 Post-Operative Diagnosis: The same Surgery/Procedure Performed: Laparoscopic robotic assisted right nephro ureterectomy pulmonary fellow: No Type of Anesthesia: General RN Documented Start/Stop Times: Operation Date: 02/25/25 07:30 Case Time Into Pre-Op 02/25/25 05:59 Out of Pre-Op 02/25/25 07:26 Anesthesia Start 02/25/25 07:33 Into Room 02/25/25 07:33 Procedure Start 02/25/25 07:58 Procedure Start Time: 07:33 Procedure Stop Time: 09:45 Select all DRAINS/GRAFTS/IMPLANTS that apply: Drains Drain details: Osborn catheter Estimated Blood Loss: 25cc Specimen collected: Yes Description of specimen(s) removed: Right nephrectomy for your ureter a specimen Description of surgery: Patient was taken back to the operative room with us with duction of anesthesia he was placed supine on the table Osborn catheter was placed he was intubated he was then transferred to full flank position and then the abdomen was shaved prepped and draped in usual fashion marked out my incision second to have a camera port right arm port left arm port a second left arm port and a air seal port suction for the hospital administrative assistant I then docked the robot we placed our instruments inside the abdomen and we started with the dissection and he had a extensive adhesions from prior appendectomy I did dissect the colon off the lateral sidewall I then reflected the colon off the kidney dissecting the colon off the kidney very carefully I then identified the liver it was adherent to the kidney the kidney was super swollen with fluid EXTR extremely large make it quite difficult I then had to dissect out the the liver off the kidney completely all the way up until cephalad and then were freed up the liver off the upper attachments allow the liver to retract off the kidney. I then dissected the colon off the kidney completely I then identified the ureter the ureter was extremely large I went into the ureter and elevated up the ureter and the kidney I then used the fourth on the hold up the kidney and then dissected very carefully underneath the kidney until I reached the renal vein renal vein was identified 2 clips down 1 clip up and was transected and then the branching renal artery was identified 2 clips down 1 clip up and then was transected I then did not take the adrenal gland I dissected cephalad until I freed up the kidney from the liver attachments all the way up to the liver spinal ligament and then this was taken down and then we took down the kidney from the lateral sidewall working her way down then at this point we made a purse incision in the kidney then placed the suction port into the kidney made an small incision in the kidney and then dry sucked out all the fluid from the kidney we sucked out probably 900 cc of urine from the kidney and then at this point that this decompressed nicely and then I traced the ureter down as far as possible to the bladder but I did not open the bladder and then transected the ureter we try to place a clip to parse the ureter but it ureter was so large the clip would not go across the ureter. So then transected the ureter and then stitched the ureter closed with a 3-0 Vicryl to close the ureter so would prevent refluxing that at this point the kidney and ureter was placed in an Endo Catch bag the robot was undocked I then scrubbed in and assisted opened up the lower port incision site and we extracted the kidney from the lower port and extraction site. We then closed the extraction site with 1-0 Vicryl stitches interrupted we then closed the camera port and the air seal port and then all the ports were removed under visualization minimal bleeding during the entire case 25 cc and then we closed all the subcuticular stitches with 4-0 Monocryl dressings and bandages were placed the patient is currently being reversed from his anesthetic and currently stable and being taken the PACU. Surgical Findings: Dilated right ureter and and kidney Complications Complications: No Admit VTE Documentation VTE Present on Admission: No VTE Mechan Device Prophylaxis: SCD's VTE Pharm Prophylaxis ordered?: No 02/25/25 0949 Cosigner Signature (if applicable): CC: Dr. Los Romero MD; Dr. Erwin Garcia MD Signed Normal [facility] Surgery Specimen Level Von 0 02-25-2025 Surgery Specimen Level V Patient Age/Sex Location Account Attending Physician HOLLIE CULLEN 74/M MS3 [id number] Dr. Los Romero MD Specimen: [id number] Received: 02/25/25 Status: AVERY [place] Num: [id number] Spec Type: KIDNEY Subm Dr: Dr. Los Romero MD HEADER OPERATION: Laparoscopic robotic, right nephroureterectomy PRE-OP DIAGNOSIS: Right hydronephrosis TISSUE SUBMITTED: A- Right kidney, right ureter MICROSCOPIC DIAGNOSIS A. Right kidney, right ureter, hydronephrosis, nephroureterectomy: * Hydronephrosis and cortical atrophy. * Bifurcation of dilated ureter. * Negative for neoplasia. MICROSCOPIC DESCRIPTION Slides are reviewed. GROSS DESCRIPTION A. Received in formalin in a container labeled with the patient's name, date of , and right kidney, right ureter is a 164 g unoriented nephrectomy specimen with attached perirenal fat and a detached ureter. The kidney is 14.0 x 7.5 x 3.5 cm. There are 2 clamped vascular margins measuring 1.3 x 0.2 cm and 1.5 x 0.8 cm. Each is shaved to reveal a patent, unremarkable lumen. The attached possible dilated ureter is 5.5 cm in length by 3.7 cm in diameter. It appears previously disrupted at the margin. Adjacent to the possible ureter is a secondary dilated argueta-pink and tubular-like structure measuring 5.5 cm in length by 5.0 cm in diameter. The specimen is bivalved to reveal that each tubular structure corresponds to the markedly dilated, cystic kidney. The entire kidney is comprised of argueta-pink, smooth surfaces, grossly consistent with dilated calyces. A few tiny argueta nodules are present, 0.1 to 0.2 cm. The nodules appear confined to the mucosal surface. No typical red-brown renal parenchyma is identified. No cortical medullary junctions are present. A single white undesignated suture is identified at one end (inked black). The detached ureter is unoriented. There is an 11.5 x 1.3 cm segment which exhibits a bifurcation that communicates with 2 separate tubular structures measuring 5.5 x 0.9 cm and 7.5 x 1.5 cm. Digital images are taken. Serial sections reveal argueta-pink mucosa with multiple scattered argueta nodules ranging from 0.1 to 0.2 cm. The nodules are confined to the mucosa. No mass lesion is grossly recognized. Received in the same container is argueta-yellow, lobulated adipose tissue measuring 13.5 x 6.0 x 3.0 cm. Serial sections reveal homogenous cut surfaces. Sales Leader sections:A1. Vascular margins, en faceA2-3. Serial sections of dilated kidney (inked black at suture)A4. Small nodules present at dilated kidneyA5. 3 ureteral Patient Age/Sex Location Account Attending Physician HOLLIE CULLEN 74/M MS3 [id number] Dr. Los Romero MD margins, en face (single aspect with each bifurcated lumen)A6. Ureter before bifurcation with small argueta nodulesA7. Ureter at bifurcationA8. Separate, bifurcated ureters with small argueta nodules [facility] 03/09/2025 CPT:55759 Patient Age/Sex Location Account Attending Physician HOLLIE CULLEN 74/M MS3 [id number] Dr. Los Romero MD Signed (signature on file) Dr. Isael Cazares MD 03/09/25 1327 Normal [facility] Comment on above: Performed By: #### P SUV ####[facility] [address] [facility] [place], [address] Electrocardiogram reportOrde red By: Migel Meléndez on 02-16-2025 EKG study [facility] Cardiovascular Services [address] [place] [address] 12 Lead EKG 02/15/25 0856 MR#: [id number] Acct: [id number] Name: HOLLIE CULLEN Rep #:[id number] : 1950 74 From: Migel Meléndez MD Attending Dr: Dr. Los Romero MD Status: PRE SDC Ordering Dr: José Michael MD Date: 12/11 Location: [facility] Sex: M C Admitted: Test Reason : PREOP Blood Pressure : */* mmHG Vent. Rate : 74 BPM Atrial Rate : 74 BPM P-R Int : 134 ms QRS Dur : 84 ms QT Int : 374 ms P-R-T Axes : 46 -1 71 degrees QTcB Int : 415 ms Normal sinus rhythm Low voltage QRS Possible Inferior infarct , age undetermined Abnormal ECG Confirmed by RIKA CLARKE, MIGEL ([id number]), book editor MARYLU EDWARDS ([id number]) on 02/16/2025 6:36:46 AM Referred By: Los Romero Confirmed By: MIGEL MELÉNDEZ MD 02/16/25 0636 Date _ Migel Meléndez MD CC: Dr. José Michael MD; Dr. Los Romero MD; Dr. Erwin Garcia MD ~ Signed [facility] Work Phone: Surgery Visit Reporton 02-16 Surgery Visit Report [facility] [address] [facility] [place] [address] OFFICE VISIT Date of Service: 02/14/25 MR#: [id number] Acct: [id number] Name: HOLLIE CULLEN Rep #: [id number] : 1950 Provider: Dr. Elana boothe MD Age/Sex: 74/M Location: [facility] Status: Signed Intake Vital Signs 02/07/25 09:39 Height 5 ft 10 in Weight: 234 lb BMI 33.5 BP 115/75 Blood Pressure Location Rt brachial Position Sitting Respiration 17 Pulse 84 Pulse Source Monitor Pulse Oximetry (%) 95 Oxygen Delivery Method room air Intake Visit Reasons: 1 WK GALLBLADDER CHECK Chief Complaint: Ed F/U gallstones Allergies No Known Allergies Allergy (Verified 02/11/25 13:21) Have you fallen in the past year?: No PFSH Medical History (Updated 02/11/25 @ 13:33 by Neema Gr) Wears glasses Wears dentures Wears partial dentures Alcohol use Loss of consciousness Dietary restriction Gastric reflux Smoker Chronic cough Hyperlipemia Kidney disease Surgical History Hx of laparoscopy Status post appendectomy Family History (Updated 02/07/25 @ 09:38 by Jemima Samano) Mother Diabetes Brother Diabetes Colon cancer Social History (Updated 02/07/25 @ 09:43 by Jemima Samano) Smoking Status: Light Smoker (<10/day) quit status: not considering quitting HPI HPI HPI: 74-year-old male presents for follow-up due to gallbladder changes on imaging, bloating symptoms at night. Patient did see Dr. Romero for the severe hydronephrosis on the right related to his atrophic kidney. Patient is scheduled for nephrectomy 02/25/2025. Patient has continued to take the omeprazole. He states he did have some ravioli and sauce and had some bloating discomfort after that. But otherwise the last 3 days he is been eating the bland food and is not really been having the bloating symptom even at night. Exam Const General: cooperative, healthy appearing, comfortable and no acute distress HENMT Head: normocephalic and atraumatic Neck Neck: supple Resp Effort Inspection: normal respiratory effort Cardio Rate: regular rate GI Inspection: non-distended Palpation: soft and nontender Skin General: no rashes or lesions noted Neuro General: CN's II-XI intact bilaterally Extrem General: normal to inspection Psych Mental Status: mental status grossly normal Attitude: cooperative Assessment and Plan Assessment and Plan (1) Bloating symptom: Status: Acute (2) Gallstones: Status: Acute (3) Kidney atrophy: Status: Acute Comment: right kidney- chronic w severe hydronephrosis Medications: New omeprazole swallow whole; do not crush, chew, dissolve, cut, break 40 mg PO QDAY 30 caps 5RF sucralfate Take an hour before meals and at bedtime 1 g PO QACHS 56 tabs 0RF Plan Sent in refill on omeprazole as well as Carafate to patient's already. Patient is planned to contact us after nephrectomy and will let us know if the pain or bloating symptoms get worse prior. Elana Richmond M.D. Pager: [phone] [facility] [address] [place] [address], [facility] [address] [place] [address] Office: [phone] Coding Level of Care Code Off vis,est,level 3 Diagnoses Bloating symptom R14.0 Gallstones K80.20 Kidney atrophy N26.1 Clinical Quality Measures Falls Risk Screening/Assistive Devices Have you fallen in the past year?: No 02/16/25 1332 Date Elana Haney Signature: Date (if applicable) CC: Dr. Erwin Garcia MD [facility] 12 Lead EKGon 02-15-2025 12 Lead EKG [facility] Cardiovascular Services [address] [place] [address] 12 Lead EKG 02/15/25 0856 MR#: [id number] Acct: [id number] Name: HOLLIE CULLEN Rep #: [id number] : 1950 74 From: Migel Meléndez MD Attending Dr: Dr. Los Romero MD Status: PRE [facility] Ordering Dr: José Michael MD Date: 02/15/25 Location: [facility] Sex: M C Admitted: Test Reason : PREOP Blood Pressure : */* mmHG Vent. Rate : 74 BPM Atrial Rate : 74 BPM P-R Int : 134 ms QRS Dur : 84 ms QT Int : 374 ms P-R-T Axes : 46 -1 71 degrees QTcB Int : 415 ms Normal sinus rhythm Low voltage QRS Possible Inferior infarct , age undetermined Abnormal ECG Confirmed by RIKA CLARKE, MIGEL ([id number]), book editor MARYLU EDWARDS ([id number]) on 02/16/2025 6:36:46 AM Referred By: Los Romero Confirmed By: MIGEL MELÉNDEZ MD 02/16/25 0636 Date Migel Meléndez MD CC: Dr. José Michael MD; Dr. Los Romero MD; Dr. Erwin Garcia MD Signed [facility] MR/PAT.[place] 02-15-2025 MR/PAT.[facility] Medical Records Department [address] [place] [address] PAT - Anesthesia 02/15/25 1625 MR#: [id number] Acct: [id number] Name: GIOHOLLIE Rep #: [id number] : 1950 74 From: Kvng Caraballo MD PCP: Dr. 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 When Was Last Pacemaker Check QUESTION #4 FULL TEXT: You/Your Family Experience fever (hyperthermia) with Anesthesia Last Oral Intake Last Oral intake: Last Oral Intake NPO since Meds taken in AM with sips of water? 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 Has anyone observed you stop No 02/11/25 13:33 breathing during sleep? STOP Results Negative 02/11/25 13:33 QUESTION #5 FULL TEXT : Do you snore loudly (louder than talking or can be heard through closed doors)? 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 Specify any problems Hx of Preganancy in last 3 N/A 02/11/25 13:33 Months Nurse Filling Out Transfusion JZOLLINGE 02/11/25 13:33 Questions: Date: 02/11/25 02/11/25 13:33 Time: 13:35 02/11/25 13:33 Patient unable to answer at this time (ie. 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 Instructions: WHILE TAKING CIPRO dutasteride 0.5 mg capsule 0.5 mg PO DAILY 01/31/25 Unknown H istory montelukast 10 mg tablet 10 mg PO QHS allergies 01/31/25 Un known History simvastatin 40 mg tablet 40 mg PO QHS 01/31/25 Unknown Hist ory omeprazole 40 mg capsule,delayed 40 mg PO QDAY #30 caps 02/08/25 Un known Rx release ciprofloxacin HCl 500 mg tablet 500 mg PO .QD 02/11/25 Unknown His tory omeprazole 40 mg (more content not included)... Normal [facility] Surgery Visit Reporton 02-07 Surgery Visit Report [facility] [address] [place] [address]. [address] [place] [address] OFFICE VISIT Date of Service: 02/07/25 MR#: [id number] Acct: [id number] Name: GIOHOLLIE Rep #: [id number] : 1950 Provider: Dr. Elana boothe MD Age/Sex: 74/M Location: [facility] Status: Signed Intake Vital Signs 01/31/25 10:04 02/07/25 09:39 Height 5 ft 10 in 5 ft 10 in Weight: 234 lb BMI 33.5 BP 115/75 Blood Pressure Location Rt brachial Position Sitting Respiration 17 Pulse 84 Pulse Source Monitor Pulse Oximetry (%) 95 Oxygen Delivery Method room air Intake Visit Reasons: ED F/U - Chief Complaint: Ed F/U gallstones Is patient in pain?: Yes Allergies No Known Allergies Allergy (Verified 02/07/25 09:40) Medications ???Medication ???Instructions ???Recorded ???Confirmed ???Type multivitamin with folic acid 400 1 tab PO DAILY 06/12/15 02/07/25 H istory mcg tablet (Thera) ciprofloxacin HCl 500 mg tablet 500 mg PO BID 7 days #14 TABLETS 0 01/31/25 02/07/25 Rx dutasteride 0.5 mg capsule 0.5 mg PO DAILY 01/31/25 02/07/25 History montelukast 10 mg tablet 10 mg PO QHS allergies 01/31/25 History simvastatin 40 mg tablet 40 mg PO QHS 01/31/25 02/07/25 His tory omeprazole 40 mg capsule,delayed 40 mg PO QDAY #30 caps 02/08/25 Rx release Have you fallen in the past year?: No PFSH Medical History Hyperlipemia Kidney disease Surgical History Hx of laparoscopy Status post appendectomy Family History (Updated 02/07/25 @ 09:38 by Jemima Samano) Mother Diabetes Brother Diabetes Colon cancer Social History (Updated 02/07/25 @ 09:43 by Jemima Samano) Smoking Status: Light Smoker (<10/day) quit status: not considering quitting HPI HPI HPI: 74-year-old male presents for follow-up from the ER due to cholelithiasis, gallbladder wall thickening, abnormal severe hydronephrosis on the right with atrophic kidney and symptoms of bloating. Patient has been avoiding any fatty or greasy foods. He still states at night he will get some abdominal bloating and he will take some ibuprofen for that if needed. Patient also has some pain in his right back. Patient does have a appointment with Nick today to talk about his kidney as there has been a big change since his last CT scan in 2017 which sounds like when he initially saw Dr. Romero. Patient is still taking the omeprazole. Patient is able to eat without having pain after eating he was able to have an exam which did not have any better. Bloating always happens at night he does have a snack before bed but his neck was for pretzels without anything else. ROS General General: Yes fatigue; No weight change, appetite, colon cancer or breast cancer HEENT HEENT: No difficulty swallowing, eye injury, eye surgery, swollen glands or hoarseness Endo Endocrine: No thyroid disease, diabetes mellitus, thyroid cancer, Hair loss, heat intolerance or cold intolerance Skin Skin: No rash or changing moles Musc Musculoskeletal: Yes back problems and arthritis; No rheumatoid arthritis, gout or joint pain Cardio Cardiovascular: No murmur, pacemaker, heart disease, atrial fibrillation, high blood pressure, heart attack, heart stent, palpitations, shortness of breath with exertion or chest pain Psych Psychiatric: No depression, anxiety or hearing voices Resp Respiratory: No shortness of breath, No sleep apnea, No cough, No COPD, No asthma, No emphysema and No wheezing Gastro Gastrointestinal: Yes abdominal pain, Yes nausea or vomiting, No diarrhea, Yes constipation, No blood in stool, No acid reflux, No hemorrhoids, No ulcers, Yes gallbladder problem and No black,tarry stools Avelino Hematologic: No blood thinners, No blood disorders, No bleeding, No anemia and No blood clots Neuro Neurologic: Yes numbness and Yes tingling Exam Const General: cooperative, healthy appearing, comfortable and no acute distress HENMT Head: normocephalic and atraumatic Neck Neck: supple Resp Effort Inspection: normal respiratory effort Cardio Rate: regular rate GI Inspection: non-distended Palpation: soft and nontender Skin General: no rashes or lesions noted Neuro General: CN's II-XI intact bilaterally Extrem General: normal to inspection Psych Mental Status: mental status grossly normal Attitude: cooperative Assessment and Plan Assessment and Plan (1) Bloating symptom: Status: Acute (2) Gallstones: Status: Acute (3) Kidney atrophy: Status: Acute Comment: right kidney- chronic w severe hydronephrosis Medications: New omeprazole swallow whole; do not crush, chew, dissolve, cut, br (more content not included)... [facility] Urine Cultureon 02-03-2025 URC Streptococcus mitis/ oralis [place] Count 25,000-50,000 Streptococcus mitis/ oralis: REACTION Ampicillin Islt JENNY <=0.25 Penicillin G Islt JENNY <=0.06 S Cefotaxime Islt JENNY <=0.12 S cefTRIAXone Islt JENNY <=0.12 S Linezolid Islt JENNY <=2 S Vancomycin Islt JENNY 0.25 S Normal [facility] Comment on above: Performed By: #### M 100.2200 ####[facility] [address] [facility] [address] [place], [place], [id number] Abdomen Limitedon 01-31-2025 Abdomen Limited [facility] [address] [place] [address] Abdomen Limited MR#: [id number] Acct: [id number] Name: HOLLIE CULLEN Rep #: [id number] : 1950 M 74 From: Rayray alvarenga MD PCP: Dr. Erwin Garcia MD Status: REG ER Study: Abdomen Limited Date of Exam: 01/31/25 Exam# [id number] Ordering Dr: Rashi Lee DO PROCEDURE: ABDOMEN LIMITED REASON FOR EXAM: PERICHOLECYSTIC FLUID R/O ACUTE CHOLECYSTITIS COMPARISON: Comparison is made with prior CT scan done earlier in the day. FINDINGS: Liver: Diffusely echogenic suggesting fatty infiltration. Hepatomegaly. The liver measures 19.7 cm. Gallbladder: Sludge and multiple small gallstones are seen within the gallbladder lumen. The gallbladder wall is thickened measuring 4.6 mm. Small amount of pericholecystic fluid. Common bile duct: Normal measuring it measures 4.4 mm.. Pancreas: Visualized portions are sonographically unremarkable. Abnormal appearance of the right kidney with minimal renal parenchyma. Multi cystic changes are seen suggestive of either chronic severe hydronephrosis versus multiple cysts. US/Abdomen Limited IMPRESSION: Sludge and gallstones seen within the gallbladder lumen with evidence of gallbladder wall thickening and pericholecystic fluid. Acute cholecystitis should be ruled out. Abnormal appearance of the right kidney as described. Fatty infiltration of the liver. Hepatomegaly. Reading Location: [place] [address] CC: Dr. Rashi Lee DO; Dr. Erwin Garcia MD [employer] Supervisor: Signed Normal [facility] Abdomen/Pelvis WITH Contrast on 01-31-2025 Abdomen/Pelvis WITH Contrast [facility] [address] [place] [id number] Abdomen/Pelvis WITH Contrast MR#: [id number] Acct: [id number] Name: HOLLIE CULLEN Rep #: [id number] : 1950 M 74 From: Rayray alvarenga MD PCP: Dr. Erwin Garcia MD Status: REG ER Study: Abdomen/Pelvis WITH Contrast Date of Exam: Exam# [id number] Ordering Dr: Rashi Lee DO PROCEDURE: ABDOMEN/PELVIS WITH CONTRAST 01/31/2025 REASON FOR EXAM: ABDOMINAL PAIN History of prior volvulus. TECHNIQUE: Abdomen CT without and with intravenous contrast. Coronal and Sagittal reconstruction series were provided. PATIENT PREPARATION: Per protocol ORAL CONTRAST TYPE: Given. CONTRAST: Isovue-300 VOLUME: 100 mLmL Gauge IV One or more dose reduction techniques were used (e.g., Automated exposure control, adjustment of the mA and/or kV according to patient size, use of iterative reconstruction technique. RADIATION DOSE SUMMARY: CTDlvol: 15 mGy DLP: 933.41 mGycm COMPARISON: None. COMPARISON: None. FINDINGS: Lung bases: Minimal degree of increased linear markings at the lung bases suggestive of mild linear scarring. No coronary artery calcification is seen. Liver: Diffuse fatty infiltration. Gallbladder: Multiple small gallstones. Minimal thickening of the gallbladder wall with findings suggestive of small amount of pericholecystic fluid. The stones are seen in the region of the neck of the gallbladder. Spleen: Multiple calcified splenic granulomas. Pancreas: Normal size without evidence of mass surrounding inflammation or ductal dilation. Adrenals: Unremarkable. Kidneys: Multiple cystic structures are seen in the right kidney. Minimal renal parenchyma is visualized. This may represent a chronic marked degree of right hydronephrosis. There is dilatation of the right ureter down to the level of the right ureterovesical junction where there is heterogeneous enlargement of the prostate and possible polypoid mass at the base of the bladder worse on the right side. The left kidney is unremarkable. Bladder: Mild degree of diffuse bladder wall thickening. Questionable polypoid mass at the base of the bladder more prominent on the right side. Prostatic enlargement with the calcifications. Bowel: Colonic diverticulosis without diverticulitis. Appendix: The appendix is not identified. There is no inflammatory process identified in the right lower quadrant to suggest appendicitis. Lymph nodes: No suspicious lymph node enlargement. Vasculature: Mild diffuse atherosclerotic calcifications are noted. Peritoneum / Retroperitoneum: No enlarged retroperitoneal lymph nodes are seen. Bones: Degenerative changes of the spine. CT/Abdomen/Pelvis WITH Contrast IMPRESSION: Multiple small gallstones more prominent and neck of the gallbladder with mild thickening of the gallbladder wall and pericholecystic fluid. Multiple cystic structures are seen in the right kidney with the minimal residual parenchymal tissue suggestive of chronic marked degree of right hydronephrosis with right hydroureter down to the level of the right ureterovesical junction where there is irregular thickening and enlargement of the prostate more prominent on the right side. Findings suggestive of possible polypoid lesion at the base of the bladder more prominent on the right side. Diffuse bladder wall thickening. Reading Location: [place] [address] CC: Dr. Rashi Lee DO; Dr. Erwin Garcia MD [employer] Supervisor: Signed Normal [facility] Absolute neutrophil countOrd ered By: Rashi Lee on 01-31-2025 Neutrophils (Bld) [#/Vol] 5.4 10*3/uL 2.0-7.7 [facility] Anion gap in Serum or Plasma Ordered By: Rashi Lee on 01-31-2025 Anion gap [Moles/Vol] 7 mmol/L 5-15 [facility] BUN/creatinine ratioOrdered By: Rashi Lee on 01-31-2025 Urea nitrogen/Creatinine [Mass ratio] 13.1 mg/mg 10-20 [facility] Basophil percentageOrdered B y: Rashi Lee on 01-31-2025 Basophils/100 WBC (Bld) 0.5 % 0-1 [facility] Bilirubin Test strip Ql (U)O rdered By: Rashi Lee on 01-31-2025 Bilirubin Ql (U) Negative Negative [facility] Bilirubin, totalOrdered By: Rashi Lee on 01-31-2025 Bilirubin [Mass/Vol] 0.27 mg/dL 0.00-1.30 [facility] CBC W/Diff, Automatedon 01-15 Absolute Lymph 1.21 X10 3/uL Normal 0.83-4.51 [facility] Comment on above: Performed By: #### L 100.0100, L501.2450, L500.4050 #### [facility] [address] [place], [address] Absolute Neut 5.4 X10 3/uL Normal 2.0-7.7 [facility] Comment on above: Performed By: #### L 100.0100, L501.2450, L500.4050 #### [facility] [address] [place], [address] Basophils/100 WBC (Bld) 0.5 % Normal 0-1 [facility] Comment on above: Performed By: #### L 100.0100, L501.2450, L500.4050 #### [facility] [address] [place], [address] Eosinophils/100 WBC (Bld) 1.8 % Normal 0-5 [facility] Comment on above: Performed By: #### L 100.0100, L501.2450, L500.4050 #### [facility] [address] [place], [address] Erythrocyte distribution width (RBC) [Ratio] 13.4 % Normal 11.6-14.6 [facility] Comment on above: Performed By: #### L 100.0100, L501.2450, L500.4050 #### [facility] [address] [place], [address] Hematocrit (Bld) [Volume fraction] 43.8 % Normal 40-54 [facility] Comment on above: Performed By: #### L 100.0100, L501.2450, L500.4050 #### [facility] [address] [place], [address] Hemoglobin (Bld) [Mass/Vol] 14.7 g/dL Normal 13.0-16.5 [facility] Comment on above: Performed By: #### L 100.0100, L501.2450, L500.4050 #### [facility] [address] [place], [address] IG% 0.100 Normal 0.0-0.9 [facility] Comment on above: Result Comment: IG% - Immature Granulocytes (promyelocytes, myelocytes and metamyelocytes) > 1% indicates that a LEFT SHIFT is Present. Performed By: #### L 100.0100, L501.2450, L500.4050 #### [facility] [address] [place], [address] Lymphocytes/100 WBC (Bld) 16.0 % Low 19-41 [facility] Comment on above: Performed By: #### L 100.0100, L501.2450, L500.4050 #### [facility] [address] [place], [address] MCH (RBC) [Entitic mass] 28.4 pg Normal 27.0-32.0 [facility] Comment on above: Performed By: #### L 100.0100, L501.2450, L500.4050 #### [facility] [address] [place], [address] MCHC (RBC) [Mass/Vol] 33.6 g/dL Normal 32-36 [facility] Comment on above: Performed By: #### L 100.0100, L501.2450, L500.4050 #### [facility] [address] [place], [address] MCV (RBC) [Entitic vol] 84.7 fL Normal 80-94 [facility] Comment on above: Performed By: #### L 100.0100, L501.2450, L500.4050 #### [facility] [address] [place], [address] Monocytes/100 WBC (Bld) 10.8 % High 0-10 [facility] Comment on above: Performed By: #### L 100.0100, L501.2450, L500.4050 #### [facility] [address] [place], [address] Neutrophils/100 WBC (Bld) 70.8 % High 47-70 [facility] Comment on above: Performed By: #### L 100.0100, L501.2450, L500.4050 #### [facility] [address] [place], [address] Nucleated RBC (Bld) [#/Vol] 0 10*3/uL Normal 0-5 [facility] Comment on above: Performed By: #### L 100.0100, L501.2450, L500.4050 #### [facility] [address] [place], [address] Platelet mean volume (Bld) [Entitic vol] 10.3 fL Normal 6.2-12.0 [facility] Comment on above: Performed By: #### L 100.0100, L501.2450, L500.4050 #### [facility] [address] [place], [address] Platelets (Bld) [#/Vol] 188 10*3/uL Normal 150-450 [facility] Comment on above: Performed By: #### L 100.0100, L501.2450, L500.4050 #### [facility] [address] [place], [address] RBC (Bld) [#/Vol] 5.17 10*6/uL Normal 4.6-6.2 [facility] Comment on above: Performed By: #### L 100.0100, L501.2450, L500.4050 #### [facility] [address] [place], [address] RDW SD 41.7 fl Normal 35.1-43.9 [facility] Comment on above: Performed By: #### L 100.0100, L501.2450, L500.4050 #### [facility] [address] [place], [address] WBC (Bld) [#/Vol] 7.6 10*3/uL Normal 4.4-11.0 [facility] Comment on above: Performed By: #### L 100.0100, L501.2450, L500.4050 #### [facility] [address] [place], [address] Carbon dioxide, total [Moles /volume] in Central venous bloodOrdered By: Rashi Lee on 01-31-2025 CO2 [Moles/Vol] 26.2 mmol/L 21.0-32.0 [facility] Chloride assayOrdered By: Star Lee on 01-31-2025 Chloride [Moles/Vol] 105 mmol/L 98-108 [facility] Comprehensive Metabolic Prof ilon 01-31-2025 Albumin [Mass/Vol] 4.0 g/dL Normal 3.4-4.8 [facility] Comment on above: Performed By: #### L 100.0100, L501.2450, L500.4050 #### [facility] [address] [place], [address] Albumin/Globulin [Mass ratio] 1.5 {ratio} Normal 0.9-2.4 [facility] Comment on above: Performed By: #### L 100.0100, L501.2450, L500.4050 #### [facility] [address] [place], [address] ALK PHOS 80 U/L Normal 40-129 [facility] Comment on above: Performed By: #### L 100.0100, L501.2450, L500.4050 #### [facility] [address] [place], [address] ALT [Catalytic activity/Vol] 22 U/L Normal <=46 [facility] Comment on above: Performed By: #### L 100.0100, L501.2450, L500.4050 #### [facility] [address] [place], [address] AST [Catalytic activity/Vol] 20 U/L Normal <=37 [facility] Comment on above: Performed By: #### L 100.0100, L501.2450, L500.4050 #### [facility] [address] [place], [address] Bilirubin [Mass/Vol] 0.27 mg/dL Normal 0.00-1.30 [facility] Comment on above: Performed By: #### L 100.0100, L501.2450, L500.4050 #### [facility] [address] [place], [address] BUN/CRE 13.1 RATIO Normal 10-20 [facility] Comment on above: Performed By: #### L 100.0100, L501.2450, L500.4050 #### [facility] [address] [place], [address] Calcium [Mass/Vol] 9.3 mg/dL Normal 7.6-11.0 [facility] Comment on above: Performed By: #### L 100.0100, L501.2450, L500.4050 #### [facility] [address] [place], [address] Chloride [Moles/Vol] 105 mmol/L Normal 98-108 [facility] Comment on above: Performed By: #### L 100.0100, L501.2450, L500.4050 #### [facility] [address] [place], [address] CO2 [Moles/Vol] 26.2 mmol/L Normal 21.0-32.0 [facility] Comment on above: Performed By: #### L 100.0100, L501.2450, L500.4050 #### [facility] [address] [place], [address] Creatinine [Mass/Vol] 1.42 mg/dL High 0.70-1.20 [facility] Comment on above: Performed By: #### L 100.0100, L501.2450, L500.4050 #### [facility] [address] [place], [address] ECRCL 57.85 ml/min Normal 50-250 [facility] Comment on above: Performed By: #### L 100.0100, L501.2450, L500.4050 #### [facility] [address] [place], [address] GAP 7 Normal 5-15 [facility] Comment on above: Performed By: #### L 100.0100, L501.2450, L500.4050 #### [facility] [address] [place], [address] GFR/1.73 sq M.predicted among non-blacks MDRD (S/P/Bld) [Vol rate/Area] 53 mL/min/{1.73_m2} Low >60 [facility] Comment on above: Result Comment: mL/m in/1.73m2 CKD-EPI Creatinine Equation (2020) Performed By: #### L 100.0100, L501.2450, L500.4050 #### [facility] [address] [place], [address] Globulin (S) [Mass/Vol] 2.6 g/dL Normal 2.2-4.2 [facility] Comment on above: Performed By: #### L 100.0100, L501.2450, L500.4050 #### [facility] [address] [place], [address] Glucose [Mass/Vol] 116 mg/dL High 70-99 [facility] Comment on above: Performed By: #### L 100.0100, L501.2450, L500.4050 #### [facility] [address] [place], [address] Potassium [Moles/Vol] 4.5 mmol/L Normal 3.3-5.1 [facility] Comment on above: Performed By: #### L 100.0100, L501.2450, L500.4050 #### [facility] [address] [place], [address] Sodium [Moles/Vol] 138 mmol/L Normal 133-145 [facility] Comment on above: Performed By: #### L 100.0100, L501.2450, L500.4050 #### [facility] [address] [place], [address] T PROT 6.6 g/dL Normal 5.9-8.4 [facility] Comment on above: Performed By: #### L 100.0100, L501.2450, L500.4050 #### [facility] [address] [place], [address] Urea nitrogen [Mass/Vol] 19 mg/dL Normal 4-19 [facility] Comment on above: Performed By: #### L 100.0100, L501.2450, L500.4050 #### [facility] [address] [place], [address] Consultation - Surgicalon Consultation - Surgical [facility] Medical Records Department [address] [place] [address] Consultation - Surgical 01/31/25 1647 MR#: [id number] Acct: [id number] Name: HOLLIE CULLEN Rep #: [id number] : 1950 74 From: Elana Richmond MD PCP: Dr. Erwin Garcia MD Status:REG ER Location: ED Assessment Plan Assessment/Plan (1) Gallstones: (2) Bloating symptom: (3) Kidney atrophy: PLAN: Plan Pt symptoms were bloating and fit with gastritic etiology more than gallstones. Patient CT abdomen pelvis does show questionable haziness around the gallbladder however patient's white blood count is normal, no change in LFTs patient does have some gallstones. Patient has been able to eat fatty greasy foods without any issues and then usually his issues have come on at night after laying down. Describes as a bloating sensation denies any real pain. Will have patient start omeprazole 40 mg p.o. daily as well as Pepcid first 2 to 3 days and have him follow-up in office in 1 week with me. Also advised low-fat diet until follow-up. Patient is are agreeable to plan. Patient CT abdomen pelvis also shows severe hydronephrosis. Patient states he has an atrophic right kidney that is about the size of a walnut. However did not have previous imaging here unsure why he would have severe hydronephrosis of the ureter and have a smaller bladder if there is not some sort of blockage. Patient's UA also appears to have a UTI. Urine culture was ordered by the ER doctor physician. Recommend getting previous CT a/p to compare the right kidney.???Addendum: CT abdomen pelvis 2016 patient did have hydronephrosis at that time as well not quite as severe. Deferred to urology. Elana Richmond M.D. Pager: [phone] [facility] [address] [place] [address], [facility], [address] [place] [address] Office: [phone] HPI Consult Data Date of Consult: 01/31/25 HPI Narrative HPI Narrative: HOLLIE CULLEN, is a 74 M who presents to the ER due to abdominal bloating. Patient states this happened 2 or 3 times last happened last night after eating some trail bologna and cheese states has been an hour after having a snack before bed and laying down they had abdominal bloating could not get comfortable. Patient had this previously at night as well. Patient has been able to eat peanuts and other fatty foods without any issues previously-even for supper last night. Patient denies any nausea or vomiting. Patient does have history of atrophy of the right kidney and states it was the size of a walnut no previous abdominal imaging here. Patient currently denies any abdominal pain states he did have some dysuria after he gave a urine sample in the ER but then went again and did not have any. Patient has a normal white blood cell count at 7.6, no shift, normal LFTs, creatinine 1.42, patient's UA does have 500 leukoesterase, 0-5 squamous and 3+ bacteria. Patient states that he had seen previously seen Dr. Romero for the hydronephrosis and there was nothing to do at that time. [facility] Medical History (Updated 01/31/25 @ 17:[address] Elana Richmond MD) Hyperlipemia Kidney disease Home Medications ???Medication ???Instructions ???Recorded ???Last Taken ???Type multivitamin with folic acid 400 1 tab PO DAILY 06/12/15 Unknown Hi story mcg tablet (Thera) ciprofloxacin HCl 500 mg tablet 500 mg PO BID 7 days #14 TABLETS 0 01/31/25 Unknown Rx dutasteride 0.5 mg capsule 0.5 mg PO DAILY 01/31/25 Unknown H istory montelukast 10 mg tablet 10 mg PO QHS allergies 01/31/25 Un known History omeprazole 40 mg capsule,delayed 40 mg PO DAILY #30 caps 01/31/25 U nknown Rx release simvastatin 40 mg tablet 40 mg PO QHS 01/31/25 Unknown Hist ory Allergy/AdvReac Type Severity Reaction Status Date / Time No Known Allergies Allergy Verified 01/31/25 10:07 Surgical History (Updated 01/31/25 @ 16:[address] Elana Richmond MD) Hx of laparoscopy Status post appendectomy Social History Smoking Status: Light Smoker (<10/day) ROS Constitutional Constitutional: Reports anorexia ENT HEENT: Denies dysphagia Cardiovascular Cardiovascular: Denies chest pain Respiratory/Chest Respiratory/Chest: Denies cough Gastrointestinal Gastrointestinal: Reports bloating; Denies abdominal pain, constipation, diarrhea, nausea or vomiting Genitourinary Genitourinary: Reports dysuria Integumentary Integumentary: Denies jaundice Psychiatric Psychiatric: Denies anxiety or depression Endocrine Endocrinology: Denies palpitations Hematologic/Lymphatic Hematologic/Lymphatic: Denies easy bleeding Physical Exam Const alert, oriented x3 and no apparent distress HEENT normocephalic and head/scalp atraumatic Resp normal respiratory effort Cardio (more content not included)... Normal [facility] Emergency Department Summary on 01-31-2025 Emergency Department Summary [facility] Medical Records Department [address] [place] [address] Emergency Department Summary 01/31/25 MR#: [id number] Acct: [id number] Name: HOLLIE CULLEN Rep #: [id number] : 1950 74 From: Rashi Lee DO PCP: Dr. Erwin Garcia MD Status:REG ER Location: ED ADDENDUM by Dr. Tan Mcgarry DO on 01/31/25 at [address] Romero, he will follow-up with the patient in the office. 01/31/251751 Cosigner Signature (if applicable): cc: Dr. Erwin Garcia MD * Signed ADDENDUM by Dr. Tan Mcgarry DO on 01/31/25 at 1744 Took over care pending surgical disposition. I received a call from Dr. Richmond, she compared CT imagings for his right renal cyst and hydronephrosis she states significantly more hydro than previous. Patient presenting with bloating. She was consulted for gallbladder concerns. Clinically no concerns for cholecystitis. She recommended a PPI which was written to his pharmacy and follow-up with her in 1 week. Patient being treated for a UTI. With hydronephrosis kidney function more improved than his previous. He has no back pain. He reports has seen Dr. Romero In the past for this was told if is not giving her problems to leave it alone. With the enlargement surgery request I relayed to urology the changes and follow-up. Page out to urology was made for discussion. 01/31/251743 Cosigner Signature (if applicable): cc: Dr. Erwin Garcia MD * Signed ADDENDUM by Dr. Rashi Lee DO on 01/31/25 at 1637 Prior to leaving the emergency department able to talk to the general surgeon. Spoke to Dr. Richmond who recommended against acute surgical invention. She noted she would like to compare prior CT to assess the patient's abnormalities. He is awaiting this reassessment by Dr. Sybil cao. I did write the patient a PPI as well as ciprofloxacin for urinary inflammation and sent urine for culture in the meantime. He is awaiting final general surgery imaging review and final discharge per afternoon/evening physician. 01/31/25 1637 Cosigner Signature (if applicable): cc: Dr. Erwin Garcia MD * Signed HPI History of Present Illness Chief Complaint: Abd Pain PFSH PFSH Medical History (Updated 01/31/25 @ 11:07 by Monica Huertas) Hyperlipemia Kidney disease Home Medications ???Medication ???Instructions ???Recorded ???Last Taken ???Type multivitamin with folic acid 400 1 tab PO DAILY 06/12/15 Unknown Hi story mcg tablet (Thera) dutasteride 0.5 mg capsule 0.5 mg PO DAILY 01/31/25 Unknown H istory montelukast 10 mg tablet 10 mg PO QHS allergies 01/31/25 Un known History simvastatin 40 mg tablet 40 mg PO QHS 01/31/25 Unknown Hist ory Allergy/AdvReac Type Severity Reaction Status Date / Time No Known Allergies Allergy Verified 01/31/25 10:07 Social History Smoking Status: Light Smoker (<10/day) EXAM Physical Exam Const Vital Signs: 01/31/25 10:04 01/31/25 12:04 01/31/25 14:37 Temperature 98.1 F Temperature Source Temporal Pulse Rate 92 65 Respiratory Rate 15 Blood Pressure 151/135 H 114/72 128/77 H Blood Pressure Mean 140 86 94 Pulse Ox 97 95 Oxygen Delivery Method Room Air Room Air MDM MDM MDM Narrative Medical decision making narrative: HISTORY OF PRESENT ILLNESS: 74-year-old male history of twisted bowel presents with abdominal pain. Notes he feels like he has not in the stomach every evening. Notes pain after eats a snack in the evening. Notes approximate 1 hour after eating he has pain in his right side of his abdomen. No vomiting. Notes he feels distended. REVIEW OF SYSTEMS: Pertinent positives: Abdominal pain Pertinent negatives: Vomiting PHYSICAL EXAM: Nursing triage notes reviewed, Vital signs reviewed Constitutional: please see mdm HENT: MMM Eyes: Pupils equal round and reactive to light, Extraocular muscles intact Neck: No stridor, no JVD, full neck ROM Lungs: Clear to auscultation, No wheezing or rales. No increased work of breathing, no conversational dyspnea, no accessory muscle use, no nasal flaring. No respiratory distress noted Heart: Regular rate and rhythm, No murmurs, No rubs and No gallops, 2+ distal pulses (radial, femoral, posterior tibial) in all extremities Abdomen: Soft, right-sided tenderness, no Palomino sign, rigidity, rebound or guarding, no obvious peritoneal signs, no palpable pulsatile abdominal masses, no auscultated abdominal bruit : No CVAT Extremities: No edema Neuro: No new focal neurological deficits, cranial nerves II through XII intact, 5/5 strength in all present extremities. Intact sensation to light touch in all present extremities, 2+ reflexes bilateral patella tendons. Skin: No rash or lesions note (more content not included)... Normal [facility] Eosinophil percentageOrdered By: Rashi Lee on 01-31-2025 Eosinophils/100 WBC (Bld) 1.8 % 0-5 [facility] Epithelial cells.squamous LM Ql (Urine sed)Ordered By: Rashi Lee on 01-31-2025 Epithelial cells.squamous LM.HPF (Urine sed) [#/Area] 0 /[HPF] 0-5 [facility] Erythrocyte distribution wid th ratioOrdered By: Rashi Lee on 01-31-2025 Erythrocyte distribution width (RBC) [Ratio] 13.4 % 11.6-14.6 [facility] Erythrocyte distribution wid th standard deviationOrdered By: Rashi Lee on 01-31-2025 Erythrocyte distribution width (RBC) [Entitic vol] 41.7 fL 35.1-43.9 [facility] Estimation of creatinine umang aranceOrdered By: Rashi Lee on 01-31-2025 Estimated Creatinine Clearance Calc 57.85 ml/min 50-250 [facility] GFR/1.73 sq M.predicted gabi g non-blacks MDRD (S/P/Bld) [Vol rate/Area]Ordered By: Rashi Lee on 01-31-2025 Estimated GFR (MDRD) Non-Af Amer 53 Low >60 [facility] Comment on above: mL/min/1.73m2 CKD-EP I Creatinine Equation (2020) Glucose Ql (U)Ordered By: marina Lee on 01-31-2025 Urine Glucose (UA) Normal mg/dl Normal [facility] Hematocrit Auto (Bld) [Volum e fraction]Ordered By: Rashi Lee on 01-31-2025 Hematocrit (Bld) [Volume fraction] 43.8 % 40-54 [facility] Hemoglobin measurementOrdere d By: Rashi Lee on 03-17-2025 Hemoglobin (Bld) [Mass/Vol] 14.7 g/dL 13.0-16.5 [facility] Immature granulocytes/100 WB C Auto (Bld)Ordered By: Rashi Lee on 01-31-2025 Immature granulocytes/100 WBC (Bld) 0.100 % 0.0-0.9 [facility] Comment on above: IG% - Immature Granu locytes (promyelocytes, myelocytes and metamyelocytes) > 1% indicates that a LEFT SHIFT is Present. Ketones Test strip Ql (U)Ord ered By: Rashi Lee on 01-31-2025 Ketones Ql (U) Negative Negative [facility] - Chemistry and C hemistry - challengeOrdered By: Rashi Lee on 01-31-2025 AST [Catalytic activity/Vol] 20 U/L <38 [facility] Lipaseon 01-31-2025 Lipase [Catalytic activity/Vol] 31 U/L Normal 13-75 [facility] Comment on above: Result Comment: Prashanth weathers note: LIPASE revised reference range effective 23. New Lipase methodology. Expected to produce lower values than the previous assay method. NEW Reference Range: 13 - 75 U/L Performed By: #### L 100.0100, L501.2450, L500.4050 #### [facility] [address], [place], [address] Lipase measurementOrdered By : Rashi Lee on 01-31-2025 Lipase [Catalytic activity/Vol] 31 U/L 13-75 [facility] Comment on above: Please note:LIPASE r evised reference range effective 23. New Lipase methodology. Expected to produce lower values than the previous assay method. NEW Reference Range: 13 - 75 U/L Lymphocytes Auto (Unsp spec) [#/Vol]Ordered By: Rashi Lee on 01-31-2025 Lymphocytes (Bld) [#/Vol] 1.21 10*3/uL 0.83-4.51 [facility] Lymphocytes/100 WBC Auto (Un sp spec)Ordered By: Rashi Lee on 01-31-2025 Lymphocytes/100 WBC (Bld) 16.0 % Low 19-41 [facility] MCV (mean corpuscular volume ) determinationOrdered By: Rashi Lee on 01-31-2025 MCV (RBC) [Entitic vol] 84.7 fL 80-94 [facility] Mean corpuscular hemoglobin (MCH) determinationOrdered By: Rashi Lee on 01-31-2025 MCH (RBC) [Entitic mass] 28.4 pg 27.0-32.0 [facility] Mean corpuscular hemoglobin concentration (MCHC) determinationOrdered By: Rashi Lee on 01-31-2025 MCHC (RBC) [Mass/Vol] 33.6 g/dL 32-36 [facility] Mean platelet volume determi nationOrdered By: Rashi Lee on 01-31-2025 Platelet mean volume (Bld) [Entitic vol] 10.3 fL 6.2-12.0 [facility] Microscopic analysis of urin e for red blood cells (RBC)Ordered By: Rashi Lee on 01-31-2025 Urine RBC 5-10 SEEN /hpf 0-5 [facility] Monocyte percentageOrdered B y: Rashi Lee on 01-31-2025 Monocytes/100 WBC (Bld) 10.8 % High 0-10 [facility] Mucus LM Ql (Urine sed)Order ed By: Rashi Lee on 01-31-2025 Mucus Ql (Urine sed) 0 SEEN /hpf [facility] Neutrophil percentageOrdered By: Rashi Lee on 01-31-2025 Neutrophils/100 WBC (Bld) 70.8 % High 47-70 [facility] Nitrite Test strip Ql (U)Ord ered By: Rashi Lee on 01-31-2025 Nitrite Ql (U) Negative Negative [facility] Nucleated red blood cell per centageOrdered By: Rashi Lee on 01-31-2025 Nucleated RBC/100 WBC (Bld) [Ratio] 0 % 0-5 [facility] Platelet countOrdered By: Star Lee on 01-31-2025 Platelets (Bld) [#/Vol] 188 10*3/uL 150-450 [facility] Potassium (Unsp spec) [Mass/ Vol]Ordered By: Rashi Lee on 01-31-2025 Potassium [Moles/Vol] 4.5 mmol/L 3.3-5.1 [facility] Protein Test strip Ql (U)Ord ered By: Rashi Lee on 01-31-2025 Protein Ql (U) 15 mg/dl High Negative [facility] RBC Auto (Bld) [#/Vol]Ordere d By: Rashi Lee on 01-31-2025 RBC (Bld) [#/Vol] 5.17 10*6/uL 4.6-6.2 [facility] Serum creatinine measurement (mass/volume)Ordered By: Rashi Lee on 01-31-2025 Creatinine [Mass/Vol] 1.42 mg/dL High 0.70-1.20 [facility] Serum globulin measurementOr dered By: Rashi Lee on 01-31-2025 Globulin (S) [Mass/Vol] 2.6 g/dL 2.2-4.2 [facility] Serum glucose measurement (m ass/volume)Ordered By: Rashi Lee on 01-31-2025 Glucose [Mass/Vol] 116 mg/dL High 70-99 [facility] Serum or plasma alanine cervantes otransferase (ALT) measurementOrdered By: Rashi Lee on 01-31-2025 ALT [Catalytic activity/Vol] 22 U/L <47 [facility] Serum or plasma albumin rayshawn urement (mass/volume)Ordered By: Rashi Lee on 01-31-2025 Albumin [Mass/Vol] 4.0 g/dL 3.4-4.8 [facility] Serum or plasma albumin/glob ulin mass ratioOrdered By: Rashi Lee on 01-31-2025 Albumin/Globulin [Mass ratio] 1.5 {ratio} 0.9-2.4 [facility] Serum or plasma alkaline luc sphatase measurementOrdered By: Rashi Lee on 01-31-2025 ALP [Catalytic activity/Vol] 80 U/L 40-129 [facility] Serum or plasma calcium rayshawn urement (mass/volume)Ordered By: Rashi Lee on 01-31-2025 Calcium [Mass/Vol] 9.3 mg/dL 7.6-11.0 [facility] Serum or plasma urea nitroge n measurement (mass/volume)Ordered By: Rashi Lee on 01-31-2025 Urea nitrogen [Mass/Vol] 19 mg/dL 4-19 [facility] Sodium levelOrdered By: Satish Lee on 01-31-2025 Sodium [Moles/Vol] 138 mmol/L 133-145 [facility] Total proteinOrdered By: Aquiles Lee on 01-31-2025 Protein [Mass/Vol] 6.6 g/dL 5.9-8.4 [facility] Urinalysis, Completeon 01-31 BACTERIA 3+ /hpf Normal None Seen [facility] Comment on above: Order Comment: CLEAN CATCH Performed By: #### L 400.0001 ####[facility] [address] [place], [address] EPI,SQUAMOUS 0-5 SEEN Normal 0-5 [facility] Comment on above: Order Comment: CLEAN CATCH Performed By: #### L 400.0001 ####[facility] [address] [place], [address] RBC 5-10 SEEN Normal 0-5 [facility] Comment on above: Order Comment: CLEAN CATCH Performed By: #### L 400.0001 ####[facility] [address] [place], [address] WBC 50-100 SEEN Normal 0-5 [facility] Comment on above: Order Comment: CLEAN CATCH Performed By: #### L 400.0001 ####[facility] [address] [place], [address] Mucus Ql (Urine sed) 0 SEEN Normal [facility] Comment on above: Order Comment: CLEAN CATCH Performed By: #### L 400.0001 ####[facility] [address] [place], [address] Urine blood detectionOrdered By: Rashi Lee on 01-31-2025 Urine Occult Blood 25 /ul High Negative [facility] Urine clarityOrdered By: Aquiles Lee on 01-31-2025 Clarity (U) Cloudy Clear [facility] Urine color determinationOrd ered By: Rashi Lee on 01-31-2025 Color (U) Yellow Yellow [facility] Urine cultureOrdered By: Aquiles Lee on 01-31-2025 Bacteria identified Cx Nom (U) Streptococcus mitis/ oralis Abnormal [facility] Urine leukocyte esterase det ection by dipstickOrdered By: Rashi Lee on 01-31-2025 Leukocyte esterase Test strip Ql (U) 500 /ul High Negative [facility] Urine pHOrdered By: Rashi ayala on 01-31-2025 pH (U) 6.0 [pH] 5.0 - 8.0 [facility] Urine sediment bacteria coun t by microscopy (number/high power field)Ordered By: Rashi Lee on 01-31-2025 Bacteria LM.HPF (Urine sed) [#/Area] 3 /[HPF] None Seen [facility] Urine specific gravity measu rementOrdered By: Rashi Lee on 01-31-2025 Specific gravity (U) [Rel density] 1.015 1.002-1.030 [facility] Urobilinogen Ql (U)Ordered B y: Rashi Lee on 01-31-2025 Urine Urobilinogen Normal mg/dl Normal [facility] White blood cell (WBC) count Ordered By: Rashi Lee on 01-31-2025 WBC (Bld) [#/Vol] 7.6 10*3/uL 4.4-11.0 [facility] White blood cell countOrdere d By: Rashi Lee on 01-31-2025 Urine WBC 50-100 SEEN /hpf 0-5 [facility] CNPNon 06-24-2024 CNPN Telephone (INTMWS) GIOHOLLIE ([id number]) 1950 M Date Time Provider Department 06/24/24 ERWIN GARCIA INTMWS During your visit today, we recorded the following information about you: Trang Seals RN 06/24/2024 11:07 AM Signed Patient's calling and states they received a letter from [facility] stating that according to results of pt's recent Lung CT result, it is advised for them to speak with pt's PCP regarding patient's coronary artery calcifications. Please advise if further testing is warranted or any other recommendations. AILEEN Del Cid Victor H, MD 06/25/2024 12:07 PM Signed That is a standard letter. His report did not show coronary artery calcifications. Still to avoid hardening of coronary arteries, it's never too late to stop smoking. Grace Avery LPN 06/25/2024 12:54 PM Signed Phoned patient left message to return call and ask to speak to a nurse. Beatrice Parker RN 06/28/2024 8:59 AM Signed Patient's calls and notified of below. voices understanding. Beatrice Parker RN Allergies As of Date: 06/24/2024 (No Known Allergies) Date Reviewed: 06/14/2024 Reviewed by: Isael Lebron APRN.RIGHT OF WAY AGENT - Fully Assessed Reason for Visit: Patient Question [6646] Prescriptions as of 06/28/2024 - simvastatin (ZOCOR) 40 mg tablet Take 1 tablet by mouth daily at bedtime. - docusate sodium (COLACE) 100 mg capsule Take 1 capsule by mouth two times a day as needed for constipation. - dutasteride (AVODART) 0.5 mg capsule Take 1 capsule by mouth once daily. - montelukast (SINGULAIR) 10 mg tablet Take 1 tablet by mouth daily at bedtime. For allergies. - imiquimod (ALDARA) 5 % cream Apply 1 application to affected area three times a week. - triamcinolone acetonide (KENALOG) 0.1 % cream Apply 1 application to affected area twice daily as needed. forehead - MULTIVITAMIN TAB Take one(1) tablet daily. 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 Hydroureteronephrosis [N13.30] 05/31/2023 Special screening for malignant neoplasms, colo*06/12/2023 Encounter Status:Closed by BEATRICE PARKER on 06/28/24 [facility] CNCOon 06-16-2024 CNCO Letter Text [facility] CNOVon 06-14-2024 CNOV Office Visit (PULMWS ) GIO,HOLLIE Robles ([id number]) 1950 M Date Time Provider Department 06/14/24 9:00 AM ISAEL LEBRON PULGuyWS During your visit today, we recorded the following information about you: Isael Lebron APRN.CNP 06/14/2024 10:10 AM Signed LUNG SCREENING ANNUAL VISIT PRIMARY CARE PHYSICIAN: Erwin Garcia MD PULMONARY PROVIDER: none Results will be communicated via letter or electronic record if applicable. Visit Delivery: In Person Patient Visit Type: established Current or Ex-smoker? [Current Exam Type: annual LDCT Number of Pack Years: 28 Current smoker (=0) The patient's smoking history is similar to prior year shared decision visit. The reason for the discrepancy is NA Chief Complaint: Established patient in lung cancer screening program here for annual follow-up. Impression / Recommendations Hollie Cullen presents for annual lung cancer screening annual exam and nodule evaluation. Plan: Indeterminate pulmonary nodules: Previously identified nodules appear stable and no new nodules of concern were seen on the exam. Low dose CT Scan to be repeated in one year. Plan subject to change pending final radiology report and recommendations. Nature of the lung nodule(s) and the options for further evaluation discussed in detail with patient. Hollie Cullen expressed understanding and is in agreement with plan. 2. Encounter for screening for malignant neoplasm of respiratory organs I have determined that the patient is eligible for continued low dose CT screening based on age, absence of signs or symptoms of lung cancer, smoking history and total pack years. The patient was counseled on the importance of adherence to annual LDCT lung cancer screening, impact of comorbidities and ability or willingness to undergo diagnosis and treatment. The patient understands and feels comfortable with it: Yes. 3. Nicotine Dependence The patient was counseled on the importance of smoking cessation if current smoker and, if appropriate, offered additional tobacco cessation counseling services - Smoking Cessation Counseling. SMOKING CESSATION COUNSELING Smoking cessation methods including Behavior Modification were discussed with the patient and assistance offered. The medical conditions adversely affected by cigarette use include:COPD, Emphysema, and Lung Cancer. Counseled on benefits of quitting smoking, recommended cessation or reduction to prevent development and/or progression of emphysema. The patient is currently not ready to quit. I personally spent 2 minutes in counseling. The time spent in smoking cessation counseling is exclusive of any other counseling during this visit. I spent a total of 30 minutes on the date of the service which included preparing to see the patient, [id number] patient care, completing clinical documentation, performing a medically appropriate examination, counseling and educating the patient/family/caregive r, ordering medications, tests, or procedures, communicating with other HCPs (not separately reported), independently interpreting results (not separately reported), communicating results to the patient/family/caregive r, and care coordination (not separately reported). Isael Lebron APRN.[facility] June 14, 2024 8:48 AM History of Present Illness: Hollie Cullen is a 73 year old male who is presenting today for annual lung cancer screening LDCT and nodule surveillance/management . Patient has multiple nodules found on previous lung cancer screening LDCT. Last LDCT was performed on 06/09/2023 and was LUNG RADS Category 2. Previous potentially significant incidental findings on imaging: None. Patient is a current smoker with a 28 pack year history. Patient is currently still smoking 8-10 cigarettes daily. Patient will continue to be eligible for lung cancer screening until age 79. The patient does not have any symptoms or signs of lung cancer. Patient denies SOB with their daily activity. No wheezing or dyspnea. Patient denies feeling of chest tightness/congestion in the chest. Patient does not have a new or concerning cough, and denies hemoptysis. Patient does not have a chronic daily cough. Denies regular or recent fevers/chills. Patient does not have any significant unintentional weight loss. Patient denies having any respiratory infections or COVID-19 in the past few months. Does not use any maintenance inhaler for COPD. Modified [employer] [place] Dyspnea Scale (MMRC) I only get breathless with strenous exercise 0 Last 12 Encounter Wt Readings: Date: Wt: 03/18/2024 101.6 kg (224 lb) 01/13/2024 103.9 kg (229 lb) 05/28/2023 100.7 kg (222 lb) 03/13/2023 102.5 kg (more content not included)... Normal [facility] CT LUNG SCREEN WO IVCONon CT LUNG SCREEN WO IVCON * * *Final Report* * * DATE OF EXAM: Jun 14 2024 8:24AM [facility] 0562 - CT LUNG SCREEN WO IVCON / PROCEDURE REASON: multiple diagnoses * * * * Physician Interpretation * * * * EXAMINATION: CHEST CT WITHOUT CONTRAST (LOW-DOSE CT LUNG CANCER SCREENING PROTOCOL) CLINICAL HISTORY: Lung cancer LDCT screening ? absence of signs or symptoms of lung cancer. Nicotine dependence (cigarettes). Subsequent (annual) Technique: Spiral CT acquisition of the chest from the thoracic inlet to the upper abdomen without contrast. MQ: [id number]_6 Patient characteristics: * Ifol-se-Xdaku: 1950; Age at exam: 73 years * Gender: Male * Lung Disease: Asymptomatic (no signs or symptoms of lung disease) * Number of Pack Years: 28 * Current smoker (=0) or Number of Years since Quit: 0 * Ordering provider and NPI: ISAEL LEBRON [id number] * Interpreting radiologist and NPI: Da [id number] Exam acquisition parameters: * Exam Date: 06/14/2024 8:24 AM * Site: [facility] * * CT System Document Imaging Manager: Sermo * CT System Model: Sensation * Tube Current-Time (mA-sec): 36 * Peak Voltage (kV): 120V * Scan Time (sec): 11.46 * Scan Volume (z-length, cm): -30.60 * Pitch: 0.75 * Slice Thickness (mm): 1.5 * CT Dose-Length Product: 113 mGy*cm * CT Dose Index: 2.76mGy * CT Dose Reduction Method: Automated exposure control(AEC) and iterative recon COMPARISON: 06/09/2023. RESULT: Are nodules present? Yes, 6 or more nodules Nodule 1: This Solid nodule is located in the Right Upper Lobe on slice number 100 with an average diameter of 5.1 mm (5.8 mm x 4.3 mm). Stable Nodule 2: This Solid nodule is located in the Right Upper Lobe on slice number 53 with an average diameter of 4.8 mm (6.7 mm x 2.9 mm). Stable Nodule 3: This Calcified nodule is located in the Right Upper Lobe on slice number 55 with an average diameter of 5.4 mm (7.2 mm x 3.6 mm). Stable Nodule 4: This Calcified nodule is located in the Right Upper Lobe on slice number 48 with an average diameter of 5.4 mm (6.5 mm x 4.3 mm). Stable Nodule 5: This Calcified nodule is located in the Right Upper Lobe on slice number 48 with an average diameter of 4.2 mm (4.5 mm x 3.8 mm). Stable Other lung nodule comments: None. Other findings: The central airways are patent without endobronchial lesion. There is mild upper lobe predominant centrilobular emphysema with diffuse bronchial wall thickening. Linear atelectasis at the lung bases. No focal consolidation. No pleural effusion. The imaged thyroid gland is unremarkable. No thoracic lymphadenopathy. Calcified thoracic lymph nodes reflecting a sequela of prior granulomatous disease. The thoracic aorta and main pulmonary artery are normal in caliber. The cardiac chambers are normal in size. No distinct coronary artery calcifications. No pericardial effusion or pericardial thickening. Degenerative changes of the thoracic spine. The soft tissues of the chest wall are unremarkable. Calcified hepatic and splenic calcified granulomas. No acute abnormality in the imaged upper abdomen. Emphysema: Mild (5-25%), Centrilobular, Upper lobe Coronary Artery Calcifications: Circumflex None; Left Anterior Descending None; Right Coronary None Localizer images: No additional findings. IMPRESSION: LungRADS category: 2 LungRADS modifier: None LungRADS 0 reason: n/a Recommendations: Continue annual screening with LDCT in 12 months. Other actionable findings: ====== Reference: [employer]. Lung CT Screening Reporting and Data System (Lung-RADS). Available at: http://www.acr.org/Qual ity-Safety/Resources/Polina ngRADS [employer] Machine Supervisor: ASHLEY Transcribe Date/Time: Jun 15 2024 9:32A Dictated by : JIMBO SORIANO MD This examination was interpreted and the report reviewed and electronically signed by: JIMBO SORIANO MD on Jun 15 2024 9:39AM EST [id number] [facility] - right 3 Viewson No acute fracture or dislocation. Puik-se-nfqxwgrh tricompartmental arthritic changes. Signed by: Donald Jacques 01/01/2024 10:39 AM Dictation workstation: [id number] MMODAL Interpreted By: Donald Riggs, STUDY: XR KNEE RIGHT 3 VIEWS; 01/01/2024 9:55 am INDICATION: Signs/Symptoms:medial knee pain x 2 weeks, NKI. COMPARISON: None. ACCESSION NUMBER(S): [id number] ORDERING CLINICIAN: TRELL GOLDMAN FINDINGS: Three views of the right knee are obtained. Medial and patellofemoral joint space loss. Tricompartmental osteophytes. No erosions. No acute fracture-dislocation. MMODAL Donald Jacques MD - 01/01/2024 Interpreted By: Donald Jacques, STUDY: XR KNEE RIGHT 3 VIEWS; 01/01/2024 9:55 am INDICATION: Signs/Symptoms:medial knee pain x 2 weeks, NKI. COMPARISON: None. ACCESSION NUMBER(S): [id number] ORDERING CLINICIAN: TRELL GOLDMAN FINDINGS: Three views of the right knee are obtained. Medial and patellofemoral joint space loss. Tricompartmental osteophytes. No erosions. No acute fracture-dislocation. IMPRESSION: No acute fracture or dislocation. Iyae-ea-lvwluaxf tricompartmental arthritic changes. Signed by: Donald Jacques 01/01/2024 10:39 AM Dictation workstation: [id number] [facility] Work Phone: Radiology Study observation (narrative) [facility] Work Phone: XR Knee - right 3 ViewsOrder ed By: Donald Jacques on 01-01-2024 [facility] Work Phone: No Panel Informationon 06-10 Prostate Specific Antigen Screen 0.96 ng/mL 0.00-4.00 [facility] Comment on above: This test was perfor med using the TPSA assay method for the[employer] chemistry system. Values obtained with differentassay methods cannot be used interchangably.When changing PSA assays in the course of monitoring apatient, additional sequential testing should be carriedout to confirm baseline values. Provider Note - ED v3on 12-2 Provider Note - ED v3 Provider Note: Chart Review: ED NOTES ED NOTES: Presents for evaluation of URI. Symptoms including cough, congestion, body aches, malaise, and headache have been present for the past day and refractory to OTC meds. No fever, chills, loss of taste/smell, nausea, vomiting, abdominal pain, CP, or SOB. No exacerbating factors. No known COVID 19/flu exposure. HISTORY OF PRESENTING ILLNESS HOLLIE is a 72 year old Male and was seen by me at 05-Nov-2022 09:28. Triage Information: Most recent Vital Sign Value Date PAST MEDICAL HISTORY ALLERGIES/INTOLERANCES: No Known Allergies HEALTH HISTORY: No documented data. OUTPATIENT MEDICATIONS: Home Medications Review Status for Reconciliation: Complete Med Status: Patient Currently Takes Medications Drug Name: simvastatin 40 mg oral tablet Instructions: null Drug Name: montelukast 10 mg oral tablet Instructions: 1 tab(s) orally once a day Drug Name: dutasteride 0.5 mg oral capsule Instructions: 1 cap(s) orally once a day SIGNIFICANT EVENTS: No documented data. REVIEW OF SYSTEMS All other systems reviewed and are negative REVIEW OF SYSTEMS: Comments See HPI PHYSICAL EXAM CONSTITUTIONAL: Well appearing, well nourished, awake, alert, oriented to person, place, time/situation and in no apparent distress. HENMT: Airway patent, ears with clear tympanic membranes bilaterally. Nasal mucosa clear. Mouth with normal mucosa. Throat has no vesicles, no oropharyngeal exudates and uvula is midline. Face with no lymph node enlargement. EYES: Clear bilaterally, pupils equal, round and reactive to light. CARDIOVASCULAR: Normal rate, regular rhythm. Heart sounds S1, S2. No murmurs, rubs or gallops. PMI non-displaced. RESPIRATORY: Breath sounds clear and equal bilaterally. NEUROLOGICAL: Alert and oriented, no focal deficits, no motor or sensory deficits. SKIN: Skin normal color for race, warm, dry and intact. No evidence of trauma. PSYCHIATRIC: Alert and oriented to person, place, time/situation. normal mood and affect. No apparent risk to self or others. CRITICAL CARE VITAL SIGNS: T PRBP SpO2O2(LPM) %FiO2 Method 05-Nov-2022 09:19:[id number] 5 96 MDM MDM/ED COURSE: Discussed Findings with: patient Data Reviewed: vital signs Treatment Plan: Encouraged pt to continue otc cold remedies, push by mouth fluids and rest. Patient's clinical presentation is otherwise unremarkable at this time. Patient is discharged with instructions to follow-up with primary care or seek emergency medical attention for worsening symptoms or any new concerns. DISPOSITION Diagnosis/Annotation: ED Dx Name:Acute upper respiratory infection Code:J06.9 Name:Fever Code:R50.9 Disposition: discharged Type: home CONSULT CRITICAL CARE TIME Is this a critically ill patient: no Electronic Signatures: Trell Goldman (CARPET YARN WINDER OPERATOR-RIGHT OF WAY AGENT) (Signed 05-Nov-2022 09:38) Authored: ED Notes, HPI, PMH, ROS, PE, Results/Vital Signs, MDM/ED Course, Clinical Impression, Attestation, Chart Review, Scores Last Updated: 05-Nov-2022 09:38 by Trell Goldman (CARPET YARN WINDER OPERATOR-RIGHT OF WAY AGENT) [facility] Vital Signs Date Time Vital Sign Value Performing Clinician Facility 04-24-2025 00:44-0400 Diastolic blood pressure 64 mm[Hg] Justina Kim MD Work Phone: [facility] 04-24-2025 00:44-0400 Heart rate 70 /min Justina Kim MD Work Phone: [facility] 04-24-2025 00:44-0400 Respiratory rate 12 /min Justina Kim MD Work Phone: [facility] 04-24-2025 00:44-0400 SaO2% (BldA) [Mass fraction] 95 % Justina Kim MD Work Phone: [facility] 04-24-2025 00:44-0400 Systolic blood pressure 137 mm[Hg] Justina Kim MD Work Phone: [facility] 04-23-2025 22:01-0400 Body mass index (BMI) [Ratio] 32.43 kg/m2 Justina Kim MD Work Phone: [facility] 04-23-2025 22:01-0400 Body temperature 97.81 [degF] Justina Kim MD Work Phone: [facility] 04-23-2025 22:01-0400 Body weight 102.51 kg Justina Kim MD Work Phone: [facility] 03-18-2025 09:11-0400 Body height 178 cm Erwin Garcia MD Work Phone: [facility] 03-18-2025 09:11-0400 Body mass index (BMI) [Ratio] 32.41 kg/m2 Erwin Garcia MD Work Phone: [facility] 03-18-2025 09:11-0400 Body temperature 98.1 [degF] Erwin Garcia MD Work Phone: [facility] 03-18-2025 09:11-0400 Body weight 102.7 kg Erwin Garcia MD Work Phone: [facility] 03-18-2025 09:11-0400 Diastolic blood pressure 72 mm[Hg] Erwin Garcia MD Work Phone: [facility] 03-18-2025 09:11-0400 Heart rate 77 /min Erwin Garcia MD Work Phone: [facility] 03-18-2025 09:11-0400 SaO2% (BldA) [Mass fraction] 99 % Erwin Garcia MD Work Phone: [facility] 03-18-2025 09:11-0400 Systolic blood pressure 112 mm[Hg] Erwin Garcia MD Work Phone: [facility] 02-27-2025 08:05-0400 Inhaled oxygen flow rate 2 L/min Dr. Rashi Lee DO Work Phone: [facility] 02-27-2025 08:01-0400 Body temperature 98.4 [degF] Dr. Rashi Lee DO Work Phone: [facility] 02-27-2025 08:01-0400 Diastolic blood pressure 73 mm[Hg] Dr. Rashi Lee DO Work Phone: [facility] 02-27-2025 08:01-0400 Heart rate 71 /min Dr. Rashi Lee DO Work Phone: 1(247)117-721342 [place] [address] 02-27-2025 08:01-0400 Respiratory rate 14 /min Dr. Rashi Lee DO Work Phone: 7(253)710-255042 [place] [address] 02-27-2025 08:01-0400 SaO2% (BldA) [Mass fraction] 94 % Dr. Rashi Lee DO Work Phone: 5(468)500-473542 [place] [address] 02-27-2025 08:01-0400 Systolic blood pressure 138 mm[Hg] Dr. Rashi Lee DO Work Phone: 2(382)668-037242 [place] [address] 02-25-2025 11:29-0400 Body height 177.[address] Rashi Lee DO Work Phone: 4(905)592-026342 [place] [address] 02-25-2025 11:29-0400 Body mass index (BMI) [Ratio] 33 kg/m2 Dr. Rashi Lee DO Work Phone: 3(863)878-981842 [place] [address] 02-25-2025 11:29-0400 Body weight 104.[address] Rashi Lee DO Work Phone: 1(730)735-762442 [place] [address] 02-07-2025 09:39-0400 Body mass index (BMI) [Ratio] 33.5 kg/m2 Dr. Rashi Lee DO Work Phone: 2(762)728-369142 [place] [address] 02-07-2025 09:39-0400 Body weight 106.[address] Rashi Lee DO Work Phone: 8(467)934-335942 [place] [address] 02-07-2025 09:39-0400 Diastolic blood pressure 75 mm[Hg] Dr. Rashi Lee DO Work Phone: 8(390)791-617042 [place] [address] 02-07-2025 09:39-0400 Heart rate 84 /min Dr. Rashi Lee DO Work Phone: 1(770)929-279042 [place] [address] 02-07-2025 09:39-0400 Respiratory rate 17 /min Dr. Rashi Lee DO Work Phone: 8(849)486-296442 [place] [address] 02-07-2025 09:39-0400 SaO2% (BldA) [Mass fraction] 95 % Dr. Rashi Lee DO Work Phone: 9(432)953-849742 [place] [address] 02-07-2025 09:39-0400 Systolic blood pressure 115 mm[Hg] Dr. Rashi Lee DO Work Phone: 0(373)644-464342 [place] [address] 01-31-2025 17:53-0400 Body temperature 98.1 [degF] Dr. Rashi Lee DO Work Phone: 2(343)946-566342 [place] [address] 01-31-2025 17:53-0400 Diastolic blood pressure 78 mm[Hg] Dr. Rashi Lee DO Work Phone: 1(730)049-105342 [place] [address] 01-31-2025 17:53-0400 Heart rate 65 /min Dr. Rashi Lee DO Work Phone: 3(725)590-597342 [place] [address] 01-31-2025 17:53-0400 Respiratory rate 15 /min Dr. Rashi Lee DO Work Phone: 0(808)215-819142 [place] [address] 01-31-2025 17:53-0400 SaO2% (BldA) [Mass fraction] 93 % Dr. Rashi Lee DO Work Phone: 0(610)560-569942 [place] [address] 01-31-2025 17:53-0400 Systolic blood pressure 137 mm[Hg] Dr. Rashi Lee DO Work Phone: 9(401)411-453642 [place] [address] 01-31-2025 10:04-0400 Body height 177.[address] Rashi Lee DO Work Phone: 8(135)083-688842 [place] [address] 01-31-2025 10:04-0400 Body mass index (BMI) [Ratio] 34.1 kg/m2 Dr. Rashi Lee DO Work Phone: 5(905)204-225342 [place] [address] 01-31-2025 10:04-0400 Body weight 107.[address] Rashi Lee DO Work Phone: 1(974)918-695142 [place] [address] 03-18-2024 09:17-0400 Body height 177.8 cm Erwin Garcia MD Work Phone: [facility] 03-18-2024 09:17-0400 Body mass index (BMI) [Ratio] 32.14 kg/m2 Erwin Garcia MD Work Phone: [facility] 03-18-2024 09:17-0400 Body temperature 97.3 [degF] Erwin Garcia MD Work Phone: [facility] 03-18-2024 09:17-0400 Body weight 101.61 kg Erwin Garcia MD Work Phone: [facility] 03-18-2024 09:17-0400 Diastolic blood pressure 70 mm[Hg] Erwin Garcia MD Work Phone: [facility] 03-18-2024 09:17-0400 Heart rate 76 /min Erwin Garcia MD Work Phone: [facility] 03-18-2024 09:17-0400 Respiratory rate 18 /min Erwin Garcia MD Work Phone: [facility] 03-18-2024 09:17-0400 Systolic blood pressure 118 mm[Hg] Erwin Garcia MD Work Phone: [facility] 01-13-2024 10:31-0500 Body weight 103.87 kg Elisha Velásquez CARPET YARN WINDER OPERATOR.WORM GROWER Work Phone: [facility] 01-13-2024 10:31-0500 Diastolic blood pressure 80 mm[Hg] Elisha Velásquez CARPET YARN WINDER OPERATOR.WORM GROWER Work Phone: [facility] 01-13-2024 10:31-0500 Heart rate 71 /min Elisha Velásquez CARPET YARN WINDER OPERATOR.WORM GROWER Work Phone: [facility] 01-13-2024 10:31-0500 SaO2% (BldA) [Mass fraction] 94 % Elisha Velásquez CARPET YARN WINDER OPERATOR.WORM GROWER Work Phone: [facility] 01-13-2024 10:31-0500 Systolic blood pressure 126 mm[Hg] Elisha Velásquez CARPET YARN WINDER OPERATOR.WORM GROWER Work Phone: [facility] 01-01-2024 09:20-0500 Body height 177.8 cm Trell Goldman CARPET YARN WINDER OPERATOR-RIGHT OF WAY AGENT Work Phone: [facility] 01-01-2024 09:20-0500 Body mass index (BMI) [Ratio] 31.57 kg/m2 Trell Jesusenijennie CARPET YARN WINDER OPERATOR-RIGHT OF WAY AGENT Work Phone: [facility] 01-01-2024 09:20-0500 Body temperature 98.71 [degF] Trell Jesusenijennie CARPET YARN WINDER OPERATOR-RIGHT OF WAY AGENT Work Phone: [facility] 01-01-2024 09:20-0500 Body weight 99.79 kg Trell Jesusenijennie CARPET YARN WINDER OPERATOR-RIGHT OF WAY AGENT Work Phone: [facility] 01-01-2024 09:20-0500 Diastolic blood pressure 74 mm[Hg] Trell Leeenijennie CARPET YARN WINDER OPERATOR-RIGHT OF WAY AGENT Work Phone: [facility] 01-01-2024 09:20-0500 Heart rate 74 /min Trell Jesusenijennie CARPET YARN WINDER OPERATOR-RIGHT OF WAY AGENT Work Phone: [facility] 01-01-2024 09:20-0500 Respiratory rate 16 /min Trell Jesusenijennie CARPET YARN WINDER OPERATOR-RIGHT OF WAY AGENT Work Phone: [facility] 01-01-2024 09:20-0500 SaO2% (BldA) [Mass fraction] 94 % Trell Leeenijennie CARPET YARN WINDER OPERATOR-RIGHT OF WAY AGENT Work Phone: [facility] 01-01-2024 09:20-0500 Systolic blood pressure 111 mm[Hg] Trell Goldman CARPET YARN WINDER OPERATOR-RIGHT OF WAY AGENT Work Phone: [facility] 05-28-2023 10:28-0400 Body weight 100.7 kg Isael Lebron CARPET YARN WINDER OPERATOR.RIGHT OF WAY AGENT Work Phone: [facility] 05-28-2023 10:28-0400 Diastolic blood pressure 78 mm[Hg] Isael Lebron CARPET YARN WINDER OPERATOR.RIGHT OF WAY AGENT Work Phone: [facility] 05-28-2023 10:28-0400 Heart rate 50 /min Isael Lebron CARPET YARN WINDER OPERATOR.RIGHT OF WAY AGENT Work Phone: [facility] 05-28-2023 10:28-0400 Respiratory rate 17 /min Isael Lebron CARPET YARN WINDER OPERATOR.RIGHT OF WAY AGENT Work Phone: [facility] 05-28-2023 10:28-0400 SaO2% (BldA) [Mass fraction] 98 % Isael Lebron CARPET YARN WINDER OPERATOR.RIGHT OF WAY AGENT Work Phone: [facility] 05-28-2023 10:28-0400 Systolic blood pressure 122 mm[Hg] Isael Lebron CARPET YARN WINDER OPERATOR.RIGHT OF WAY AGENT Work Phone: [facility] 03-13-2023 08:03-0400 Body height 180.3 cm Erwin Garcia MD Work Phone: [facility] 03-13-2023 08:03-0400 Body weight 102.51 kg Erwin Garcia MD Work Phone: [facility] 03-13-2023 08:03-0400 Diastolic blood pressure 70 mm[Hg] Erwin Garcia MD Work Phone: [facility] 03-13-2023 08:03-0400 Heart rate 68 /min Erwin Garcia MD Work Phone: [facility] 03-13-2023 08:03-0400 Respiratory rate 16 /min Erwin Garcia MD Work Phone: [facility] 03-13-2023 08:03-0400 Systolic blood pressure 118 mm[Hg] Erwin Garcia MD Work Phone: [facility] 04-04-2022 10:29-0400 Body temperature 97.3 [degF] Madeline Saucedo CARPET YARN WINDER OPERATOR.RIGHT OF WAY AGENT Work Phone: [facility] 04-04-2022 10:29-0400 Body weight 101.24 kg Madeline Saucedo CARPET YARN WINDER OPERATOR.RIGHT OF WAY AGENT Work Phone: [facility] 04-04-2022 10:29-0400 Diastolic blood pressure 62 mm[Hg] Madeline Sheryl CARPET YARN WINDER OPERATOR.RIGHT OF WAY AGENT Work Phone: [facility] 04-04-2022 10:29-0400 Heart rate 97 /min Madeline Sheryl CARPET YARN WINDER OPERATOR.RIGHT OF WAY AGENT Work Phone: [facility] 04-04-2022 10:29-0400 Respiratory rate 21 /min Madeline Sheryl CARPET YARN WINDER OPERATOR.RIGHT OF WAY AGENT Work Phone: [facility] 04-04-2022 10:29-0400 SaO2% (BldA) [Mass fraction] 96 % Madeline Sheryl CARPET YARN WINDER OPERATOR.RIGHT OF WAY AGENT Work Phone: [facility] 04-04-2022 10:29-0400 Systolic blood pressure 118 mm[Hg] Madeline Sheryl CARPET YARN WINDER OPERATOR.RIGHT OF WAY AGENT Work Phone: [facility] 03-08-2022 13:59-0400 Body weight 102.06 kg Khadijah Older CARPET YARN WINDER OPERATOR.RIGHT OF WAY AGENT Work Phone: [facility] 03-08-2022 13:59-0400 Diastolic blood pressure 76 mm[Hg] Khadijah Older CARPET YARN WINDER OPERATOR.RIGHT OF WAY AGENT Work Phone: [facility] 03-08-2022 13:59-0400 Heart rate 74 /min Khadijah Older CARPET YARN WINDER OPERATOR.RIGHT OF WAY AGENT Work Phone: [facility] 03-08-2022 13:59-0400 Respiratory rate 12 /min Khadijah Older CARPET YARN WINDER OPERATOR.RIGHT OF WAY AGENT Work Phone: [facility] 03-08-2022 13:59-0400 SaO2% (BldA) [Mass fraction] 95 % Khadijah Older CARPET YARN WINDER OPERATOR.RIGHT OF WAY AGENT Work Phone: [facility] 03-08-2022 13:59-0400 Systolic blood pressure 116 mm[Hg] Khadijah Older CARPET YARN WINDER OPERATOR.RIGHT OF WAY AGENT Work Phone: [facility] Encounters Encounter Date Encounter Type Care Provider Facility Start: 04-23-2025 End: 04-24-2025 Emergency department patient visit Justina Kim MD Work Phone: [facility] Comment on above: Calculus of gallblad yaritza without cholecystitis without obstruction (Primary Dx); Biliary colic Start: 03-18-2025 End: 03-18-2025 ambulatory ERWIN GARCIA Facility:[facility] Start: 03-18-2025 End: 03-18-2025 Patient encounter procedure Erwin Garcia MD Work Phone: [facility] [place] Comment on above: Medicare annual well ness visit, subsequent (Primary Dx); Encounter for screening examination for other mental health and behavioral disorders; Screening for depression; Impaired fasting glucose; Hyperlipidemia, unspecified hyperlipidemia type; Tobacco use disorder; Stage 3a chronic kidney disease (HCC); BPH with obstruction/lower urinary tract symptoms; Obesity, Class I, BMI 30-34.9; Chronic rhinitis; Personal history of skin cancer; Calculus of gallbladder without cholecystitis without obstruction Start: 03-15-2025 End: 03-15-2025 ambulatory KHADIJAH RAMAN Facility:[facility] Start: 03-14-2025 End: 03-14-2025 Telephone encounter Erwin Garcia MD Work Phone: [facility] [place] Comment on above: Lab Orders Start: 03-02-2025 End: 03-02-2025 Refill Erwin Garcia MD Work Phone: [facility] [place] Comment on above: Refill Request Start: 02-25-2025 End: 02-27-2025 ambulatory Erwin Garcia Facility:[facility] Start: 02-25-2025 End: 02-27-2025 Evaluation and management of inpatient Dr. Los Romero MD -[facility] Work Phone: Start: 02-25-2025 End: 02-27-[address] Rashi Lee DO Work Phone: [facility] Work Phone: Start: 02-15-2025 End: 02-15-2025 ambulatory Migel Meléndez [place] [place]: 02-15-2025 End: 02-15-2025 Non-patient / Non-visit Dr. Migel Meléndez MD -[facility] Work Phone: Start: 02-14-2025 End: 02-14-[address] Elana Richmond MD -[facility] Work Phone: Start: 02-14-2025 End: 02-14-2025 ambulatory Erwin Garcia Facility:[facility] Start: 02-07-2025 End: 02-07-[address] Elana Richmond MD -[facility] Work Phone: Start: 02-07-2025 End: 02-07-2025 ambulatory Erwin Garcia Facility:[facility] Start: 01-31-2025 Non-patient / Non-visit Dr. Paulino Richmond MD -[facility] Start: 01-31-2025 End: 01-31-2025 ambulatory Erwin Garcia MD Work Phone: Internal [facility] [place] Comment on above: Abdominal Pain Start: 01-31-2025 End: 01-31-2025 Emergency department patient visit Dr. Rashi Lee DO Work Phone: -Emergency Department Work Phone: Start: 10-25-2024 End: 10-25-2024 Refill Erwin Garcia MD Work Phone: [facility] [place] Comment on above: Refill Request Start: 07-08-2024 End: 07-09-2024 Refill Erwin Garcia MD Work Phone: [facility] [place] Comment on above: Refill Request Start: 06-24-2024 Telephone encounter Erwin cdaena MD Work Phone: [facility] [place] Comment on above: Patient Question Start: 06-14-2024 End: 06-14-2024 Patient encounter procedure Isale Lebron CARPET YARN WINDER OPERATOR.RIGHT OF WAY AGENT Work Phone: Pulmonary Medicine Comment on above: Multiple lung nodule s (Primary Dx); Encounter for screening for lung cancer; Tobacco use current Start: 06-14-2024 End: 06-14-2024 ambulatory ISAEL LEBRON Facility:[facility] Start: 06-14-2024 End: 06-14-2024 Subsequent hospital visit by physician [facility] ([facility]-Stat) Work Phone: Cat Scan Comment on above: Encounter for screen ing for lung cancer [Z12.2] Start: 03-18-2024 End: 03-18-2024 Patient encounter procedure Erwin Garcia MD Work Phone: Internal Medicine [place] Comment on above: Medicare annual well ness visit, subsequent (Primary Dx); Hyperlipidemia, unspecified hyperlipidemia type; Stage 3a chronic kidney disease (HCC); Impaired fasting glucose; Benign neoplasm of colon, unspecified part of colon; Need for COVID-19 vaccine Start: 03-15-2024 Telephone encounter Erwin cadena MD Work Phone: Internal [facility] [place] Comment on above: Lab Orders Start: 01-13-2024 Telephone encounter Elisha todd CARPET YARN WINDER OPERATOR.WORM GROWER Work Phone: [facility] [place] Start: 01-13-2024 End: 01-13-2024 Office outpatient visit 15 minutes Elisha Velásquez CARPET YARN WINDER OPERATOR.WORM GROWER Work Phone: [facility] [place] Comment on above: Acute pain of right knee (Primary Dx) Start: 01-01-2024 End: 01-01-2024 Subsequent hospital visit by physician Prakash X-Ray 1 [facility] Comment on above: Injury of right knee , initial encounter Start: 01-01-2024 End: 01-01-2024 Patient encounter procedure Trell Goldman CARPET YARN WINDER OPERATOR-RIGHT OF WAY AGENT Work Phone: [facility] Comment on above: Injury of right knee , initial encounter (Primary Dx) Start: 12-22-2023 Refill Erwin fox MD Work Phone: [facility] [place] Comment on above: Refill Request Start: 07-25-2023 Refill Erwin fox MD Work Phone: [facility] [place] Comment on above: Refill Request Start: 06-13-2023 Telephone encounter Isael pastrana CARPET YARN WINDER OPERATOR.RIGHT OF WAY AGENT Work Phone: [facility] Comment on above: Results Start: 06-10-2023 End: 06-10-2023 ambulatory [facility] Work Phone: Start: 06-10-2023 End: 06-10-2023 Patient encounter procedure [facility] Work Phone: Start: 06-02-2023 Telephone encounter Erwin cadena MD Work Phone: Internal Medicine [place] Comment on above: Results Start: 05-31-2023 Orders Only Erwin fox MD Work Phone: [facility] [place] Comment on above: Hydroureteronephrosi s (Primary Dx); Stage 3a chronic kidney disease (HCC) Start: 05-28-2023 End: 05-28-2023 Patient encounter procedure Isael Bernardino PORRASRIGHT OF WAY AGENT Work Phone: Pulmonary Medicine Comment on above: Encounter for screen ing for lung cancer (Primary Dx); Tobacco use current Start: 03-13-2023 End: 03-13-2023 Patient encounter procedure Erwin Garcia MD Work Phone: Internal [facility] [place] Comment on above: Medicare annual well ness visit, subsequent (Primary Dx); Hyperlipidemia, unspecified hyperlipidemia type; Tobacco use disorder; Stage 3a chronic kidney disease (HCC); Impaired fasting glucose; BPH with obstruction/lower urinary tract symptoms; Special screening for malignant neoplasms, colon Start: 01-02-2023 Refill Erwin fox MD Work Phone: [facility] [place] Comment on above: Refill Request Start: 12-23-2022 Refill Erwin fox MD Work Phone: Internal Medicine [place] Comment on above: Refill Request Orders Start: 11-05-2022 End: 11-05-2022 Emergency department patient visit Ms. Trell Goldman Facility:[id number] Start: 04-05-2022 Telephone encounter Aaron Reilly MD Work Phone: [facility] Comment on above: Results (COVID+) Start: 04-04-2022 End: 04-04-2022 Patient encounter procedure Madeline Saucedo CARPET YARN WINDER OPERATOR.RIGHT OF WAY AGENT Work Phone: [facility] Comment on above: Exposure to COVID-19 virus (Primary Dx); Upper respiratory symptom Start: 03-08-2022 End: 03-08-2022 Patient encounter procedure Khadijah Cramer APRN.RIGHT OF WAY AGENT Work Phone: [facility] [place] Comment on above: BPH with obstruction /lower urinary tract symptoms (Primary Dx); Stage 3a chronic kidney disease (HCC); Hyperlipidemia, unspecified hyperlipidemia type; Impaired fasting glucose; Obesity, Class I, BMI 30-34.9 Procedures Date Procedure Procedure Detail Performing Clinician Start: 04-23-2025 Assay of troponin quantitative Justina Kim MD Work Phone: Start: 04-23-2025 Ct abdomen & pelvis w/o contrast material Justina Kim MD Work Phone: Start: 04-23-2025 Radiologic exam ches t single view Justina Kim MD Work Phone: Start: 04-23-2025 Comprehensive metabo lic panel Justina Kim MD Work Phone: Start: 04-23-2025 Troponin I.cardiac p krysten - Serum or Plasma by High sensitivity method Justina Kim MD Work Phone: Start: 03-18-2025 Adult depression scr eening assessment Erwin Garcia MD Work Phone: Start: 03-15-2025 Lipid 1996 panel - S diego or Plasma Erwin Garcia MD Work Phone: Start: 02-25-[address] Miah Lee DO Work Phone: Start: 01-31-[address] Fabiola Lee DO Work Phone: Start: 01-31-[address] Rashi Lee DO Work Phone: Start: 01-31-2025 Computed tomography of abdomen and pelvis with contrast Dr. Rashi Lee DO Work Phone: Start: 03-18-2024 Akella-Cureeo COVI D-19 VACCINE (2022- SEASON) AGE 12+ YR Erwin Garcia MD Work Phone: Start: 03-18-2024 Adult depression scr eening assessment Isael Brownpster CARPET YARN WINDER OPERATOR.RIGHT OF WAY AGENT Work Phone: Start: 03-16-2024 Lipid 1996 panel - S diego or Plasma Erwin Garcia MD Work Phone: Start: 01-01-2024 Radiologic examinati on knee 3 views Trell Goldman CARPET YARN WINDER OPERATOR-RIGHT OF WAY AGENT Work Phone: Start: 06-12-2023 Colonoscopy Isael Lex zeian CARPET YARN WINDER OPERATOR.RIGHT OF WAY AGENT Work Phone: Start: 02-17-2023 Lipid 1996 panel - S diego or Plasma Erwin Garcia MD Work Phone: Start: 03-08-2022 Adult depression scr eening assessment Khadijah Older CARPET YARN WINDER OPERATOR.RIGHT OF WAY AGENT Work Phone: Start: 08-19-2018 Colonoscopy Khadijah Older CARPET YARN WINDER OPERATOR.RIGHT OF WAY AGENT Work Phone: Plan of Treatment Date Care Activity Detail Author Start: 06-12-2033 Screening for malign ant neoplasm of colon [facility] Start: 03-15-2030 Lipid panel Lipid Screening [facility] Start: 03-16-2029 Lipid panel Lipid Screening [facility] Start: 06-12-2028 Colonoscopy COLONOSCOPY [facility] Start: 06-12-2028 COLORECTAL CANCER SCREENING COLORECTAL CANCER SCREENING [facility] Start: 06-12-2028 Screening for malign ant neoplasm of colon [facility] Start: 03-15-2028 Diabetes Screening Diabetes Screenin g [facility] Start: 02-18-2028 Lipid panel Lipid Screening [facility] Start: 02-18-2028 LIPID SCREEN LIPID SCREEN [facility] Start: 04-04-2027 DTaP/Tdap/Td Vaccine s (2 - Td or Tdap) DTaP/Tdap/Td Vaccines (2 - Td or Tdap) [facility] Start: 04-04-2027 Urine microalbumin profile [facility] Start: 03-16-2027 Diabetes Screening Diabetes Screenin g [facility] Start: 02-26-2027 LIPID SCREEN LIPID SCREEN [facility] Start: 03-22-2026 End: 03-22-2026 Patient encounter procedure 03/22/2026 9:20 AM EDT Office Visit [facility] [place] [address] [place] [address] Erwin Garcia MD [address] [place] [address] medicare wellness [facility] [place] Comment on above: medicare wellness Start: 03-18-2026 Annual PCP Team Director Of Manufacturing Operations faith Disease Visit Annual PCP Team Chronic Disease Visit [facility] Start: 03-18-2026 Anxiety Screening Anxiety Screening [facility] Start: 03-18-2026 Depression Screening Depression Scre ing [facility] Start: 03-15-2026 Complete blood count Hemoglobin/Avelino tocrit [facility] Start: 03-15-2026 Creatinine measurement Serum Creatin ine [facility] Start: 03-15-2026 Hemoglobin A1c measurement Diabetes: Hemoglobin A1C [facility] Start: 02-17-2026 DIABETES SCREEN DIABETES SCREEN [facility] Start: 02-17-2026 Diabetes Screening Diabetes Screenin g [facility] Start: 06-20-2025 End: 06-20-2025 Patient encounter procedure Cat Scan Comment on above: Yearly LDCT Yearly LCS Start: 06-14-2025 Screening for malign ant neoplasm of lung Lung Cancer Screening [facility] Start: 03-18-2025 Annual PCP Team Director Of Manufacturing Operations faith Disease Visit Annual PCP Team Chronic Disease Visit [facility] Start: 03-18-2025 Anxiety Screening Anxiety Screening [facility] Start: 03-18-2025 Depression Screening Depression Scre ing [facility] Start: 03-18-2025 End: 03-18-2025 Patient encounter procedure 03/18/2025 9:00 AM EDT Office Visit [facility] [place] [address] [place] [address] Erwin Garcia MD [address] [place] [address] Medicare Wellness [facility] [place] Comment on above: Medicare Wellness Start: 03-16-2025 Complete blood count Hemoglobin/Avelino tocrit [facility] Start: 03-16-2025 Creatinine measurement Serum Creatin ine [facility] Start: 03-14-2025 End: 06-13-2025 CBC panel - Blood by Automated count COMPLETE BLOOD COUNT Lab Routine Stage 3a chronic kidney disease (HCC) Expected: 03/14/2025, Expires: 06/13/2025 [facility] Comment on above: Expected: 03/14/2025 , Expires: 06/13/2025 Start: 03-14-2025 End: 06-13-2025 Comprehensive metabolic 2000 panel - Serum or Plasma COMPREHENSIVE METABOLIC PANEL Lab Routine Stage 3a chronic kidney disease (HCC) Hyperlipidemia, unspecified hyperlipidemia type Expected: 03/14/2025, Expires: 06/13/2025 [facility] Comment on above: Expected: 03/14/2025 , Expires: 06/13/2025 Start: 03-14-2025 End: 06-13-2025 Hemoglobin A1c in Blood HEMOGLOBIN A1C Lab Routine Impaired fasting glucose Expected: 03/14/2025, Expires: 06/13/2025 [facility] Work Phone: Comment on above: Expected: 03/14/2025 , Expires: 06/13/2025 Start: 03-14-2025 End: 06-13-2025 Lipid 1996 panel - Serum or Plasma LIPID PANEL, FASTING Lab Routine Hyperlipidemia, unspecified hyperlipidemia type Expected: 03/14/2025, Expires: 06/13/2025 [facility] Comment on above: Expected: 03/14/2025 , Expires: 06/13/2025 Start: 02-27-2025 Patient discharge [facility] Start: 02-27-2025 Removal of urinary catheter [facility] Start: 02-27-2025 Oxygen therapy [facility] Start: 02-26-2025 DIABETES SCREEN DIABETES SCREEN [facility] Start: 02-26-2025 Measuring intake and output [facility] Start: 02-26-2025 Removal of urinary catheter [facility] Start: 02-25-2025 Application of intermittent pneumatic compression device [facility] Start: 02-25-2025 Following clinical pathway protocol [facility] Start: 02-25-2025 Measuring intake and output [facility] Start: 02-25-2025 Admission procedure [facility] Start: 02-25-2025 Assessment of risk o f venous thromboembolism [facility] Start: 02-25-2025 Following clinical pathway protocol [facility] Start: 02-25-2025 End: 02-25-2025 Provision of activity privileges [facility] Start: 02-25-2025 Taking patient vital signs [facility] Start: 02-25-2025 Vital signs measurements [facility] Start: 02-25-2025 End: 02-25-2025 [facility] Start: 01-31-2025 [facility] Start: 01-31-2025 Bacteria identified in Urine by Culture Urine Culture [facility] Start: 01-31-2025 [facility] Start: 11-17-2024 Advance Directive Discussion Advance Directive Discussion [facility] Start: 07-18-2024 Covid-19 Vaccine () Covid-19 Vaccine () [facility] Start: 07-18-2024 Influenza vaccination Influenza Vacc ine (#1) [facility] Start: 06-14-2024 End: 06-14-2024 Patient encounter procedure Cat Scan Comment on above: Annual LCS Start: 06-13-2024 End: 07-12-2024 CT LUNG SCREEN WO IVCON CT LUNG SCREEN WO IVCON Radiology Routine Encounter for screening for lung cancer Tobacco use current Expected: 06/13/2024, Expires: 07/12/2024 [facility] Work Phone: Comment on above: Expected: 06/13/2024 , Expires: 07/12/2024 Start: 06-09-2024 Influenza vaccination LUNG CANCER SC REENING [facility] Start: 06-09-2024 Screening for malign ant neoplasm of lung Lung Cancer Screening [facility] Start: 03-18-2024 End: 03-18-2024 Patient encounter procedure 03/18/2024 9:20 AM EDT Office Visit [facility] [place] [address] [place] [address] Erwin Garcia MD [address] [place], [place] [id number] Annual Medicare Wellness w/follow-up [facility] [place] Comment on above: Annual Medicare Well ness w/follow-up Start: 03-15-2024 End: 06-14-2024 CBC panel - Blood by Automated count COMPLETE BLOOD COUNT Lab Routine Stage 3a chronic kidney disease (HCC) Expected: 03/15/2024, Expires: 06/14/2024 [facility] Work Phone: Comment on above: Expected: 03/15/2024 , Expires: 06/14/2024 Start: 03-15-2024 End: 06-14-2024 Comprehensive metabolic 2000 panel - Serum or Plasma COMPREHENSIVE METABOLIC PANEL Lab Routine Stage 3a chronic kidney disease (HCC) Hyperlipidemia, unspecified hyperlipidemia type Expected: 03/15/2024, Expires: 06/14/2024 [facility] Comment on above: Expected: 03/15/2024 , Expires: 06/14/2024 Start: 03-15-2024 End: 06-14-2024 Hemoglobin A1c in Blood HEMOGLOBIN A1C Lab Routine Impaired fasting glucose Expected: 03/15/2024, Expires: 06/14/2024 [facility] Comment on above: Expected: 03/15/2024 , Expires: 06/14/2024 Start: 03-15-2024 End: 06-14-2024 Lipid 1996 panel - Serum or Plasma LIPID PANEL BASIC Lab Routine Hyperlipidemia, unspecified hyperlipidemia type Expected: 03/15/2024, Expires: 06/14/2024 [facility] Comment on above: Expected: 03/15/2024 , Expires: 06/14/2024 Start: 03-13-2024 ANNUAL PCP TEAM PLANT TECHNICIAN/CONTROL ROOM OPERATOR FAITH DISEASE VISIT ANNUAL PCP TEAM CHRONIC DISEASE VISIT [facility] Start: 02-18-2024 Complete blood count Hemoglobin/Avelino tocrit [facility] Start: 02-18-2024 Creatinine measurement Serum Creatin ine [facility] Start: 02-18-2024 Hemoglobin A1c measurement Diabetes: Hemoglobin A1C [facility] Start: 02-18-2024 HEMOGLOBIN/HEMATOCRIT HEMOGLOBIN/HEM ATOCRIT [facility] Start: 02-18-2024 SERUM CREATININE SERUM CREATININE Cl [facility] Start: 01-09-2024 Covid-19 Vaccine (7 ) Covid-19 Vaccine () [facility] Start: 01-01-2024 End: 01-01-2025 XR Knee - right 3 Views XR knee right 3 views Imaging STAT Injury of right knee, initial encounter Expected: 01/01/2024, Expires: 01/01/2025 [facility] Service Area Work Phone: Comment on above: Expected: 01/01/2024 , Expires: 01/01/2025 Start: 11-17-2023 Advance Directive Discussion Advance Directive Discussion [facility] Start: 11-17-2023 Behavioral Health Screening Behavioral Health Screening [facility] Start: 11-17-2023 Depression Assessment Depression Ass essment [facility] Start: 08-19-2023 Colonoscopy COLONOSCOPY [facility] Start: 08-19-2023 COLORECTAL CANCER SCREENING COLORECTAL CANCER SCREENING [facility] Start: 07-18-2023 Covid-19 Vaccine () Covid-19 Vaccine () [facility] Start: 07-18-2023 Influenza vaccination [facility] Start: 03-08-2023 Adult depression screening assessment DEPRESSION SCREENING [facility] Start: 03-08-2023 ANNUAL PCP TEAM PLANT TECHNICIAN/CONTROL ROOM OPERATOR FAITH DISEASE VISIT ANNUAL PCP TEAM CHRONIC DISEASE VISIT [facility] Start: 02-26-2023 HEMOGLOBIN/HEMATOCRIT HEMOGLOBIN/HEM ATOCRIT [facility] Start: 02-26-2023 SERUM CREATININE SERUM CREATININE Cl [facility] Start: 02-15-2023 End: 04-17-2023 CBC panel - Blood by Automated count CBC Lab Routine Stage 3a chronic kidney disease (HCC) Expected: 02/15/2023 (Approximate), Expires: 04/17/2023 [facility] Work Phone: Comment on above: Expected: 02/15/2023 (Approximate), Expires: 04/17/2023 Start: 02-15-2023 End: 04-17-2023 Comprehensive metabolic 2000 panel - Serum or Plasma COMP METABOLIC PANEL Lab Routine Hyperlipidemia, unspecified hyperlipidemia type Stage 3a chronic kidney disease (HCC) Expected: 02/15/2023 (Approximate), Expires: 04/17/2023 [facility] Work Phone: Comment on above: Expected: 02/15/2023 (Approximate), Expires: 04/17/2023 Start: 02-15-2023 End: 04-17-2023 Hemoglobin A1c in Blood HGB A1C Lab Routine Impaired fasting glucose Expected: 02/15/2023 (Approximate), Expires: 04/17/2023 [facility] Work Phone: Comment on above: Expected: 02/15/2023 (Approximate), Expires: 04/17/2023 Start: 02-15-2023 End: 04-17-2023 Lipid 1996 panel - Serum or Plasma LIPID PANEL BASIC Lab Routine Hyperlipidemia, unspecified hyperlipidemia type Expected: 02/15/2023 (Approximate), Expires: 04/17/2023 [facility] Work Phone: Comment on above: Expected: 02/15/2023 (Approximate), Expires: 04/17/2023 Start: 12-08-2022 COVID-19 VACCINE (6 - Moderna series) COVID-19 VACCINE (6 - Moderna series) [facility] Start: 11-17-2022 ADVANCE DIRECTIVE DISCUSSION ADVANCE DIRECTIVE DISCUSSION [facility] Start: 11-17-2022 DEPRESSION ASSESSMENT DEPRESSION ASS ESSMENT [facility] Start: 07-18-2022 Influenza vaccination INFLUENZA (#1) [facility] Start: 05-10-2022 COVID-19 VACCINE (5 - Booster for Moderna series) COVID-19 VACCINE (5 - Booster for Moderna series) [facility] Start: 04-04-2022 End: 04-18-2022 Influenza virus A and B RNA and SARS-CoV-2 (COVID-19) N gene panel - Respiratory specimen by KRYSTYNA with probe detection [facility] Work Phone: Comment on above: Expected: 04/04/2022 , Expires: 04/18/2022 Start: 2017 Abdominal aortic ane urysm screening Abdominal Aortic Aneurysm (AAA) Screening [facility] Start: 2012 RSV Vaccine (1 - 1-d ose 60+ series) RSV Vaccine (1 - 1-dose 60+ series) [facility] Start: 2002 Influenza vaccination LUNG CANCER SC REENING [facility] Start: 1997 COLOGUARD (FIT-DNA) COLOGUARD (FIT-D NA) [facility] Start: [address] [facility] Start: 1997 FECAL OCCULT BLOOD FECAL OCCULT BLOO D [facility] Start: 1997 Screening for malign ant neoplasm of colon [facility] Start: 1997 SIGMOIDOSCOPY SIGMOIDOSCOPY [facility] Start: 1970 Hepatitis C screening Hepatitis C Sc reening [facility] Start: 1952 Lipid panel Lipid Panel [facility] Start: 1952 Medicare Annual Well ness Visit Medicare Annual Wellness Visit (AWV) [facility] Start: 1952 Screening for malign ant neoplasm of colon [facility] Start: 1952 Yearly Adult Physical Yearly Adult P hysical [facility] End: 07-14-2025 CT Chest for screening WO contrast CT LUNG SCREEN WO IVCON Radiology Routine Encounter for screening for lung cancer Tobacco use current 1 Occurrences starting 06/14/2024 until 07/14/2025 [facility] Work Phone: Comment on above: 1 Occurrences starti ng 06/14/2024 until 07/14/2025 CT Chest for screeni ng WO contrast CT LUNG SCREEN WO IVCON Radiology Routine Encounter for screening for lung cancer Tobacco use current 06/14/2024 8:24 AM EDT [facility] Work Phone: End: 06-26-2024 CT LUNG SCREEN WO IVCON CT LUNG SCREEN WO IVCON Radiology Routine Encounter for screening for lung cancer Tobacco use current 1 Occurrences starting 05/28/2023 until 06/26/2024 [facility] Work Phone: Comment on above: 1 Occurrences starti ng 05/28/2023 until 06/26/2024 End: 04-23-2025 ECG 12 lead ECG 12 lead ECG STAT Once for 1 Occurrences starting 04/23/2025 until 04/23/2025 [facility] Service Area Work Phone: Comment on above: Once for 1 Occurrenc es starting 04/23/2025 until 04/23/2025 Patient Education Urinary Tract Infections in Men ED Gallstones with Biliary Colic [facility] Work Phone: Patient referral [facility] Work Phone: End: 03-13-2024 Screening colonoscopy COLONOSCOPY SCREENING Endoscopy Routine Special screening for malignant neoplasms, colon 1 Occurrences starting 03/13/2023 until 03/13/2024 [facility] Work Phone: Comment on above: 1 Occurrences starti ng 03/13/2023 until 03/13/2024 Urine culture [facility] End: 04-11-2024 US KIDNEY/BLADDER US KIDNEY/BLADDER Radiology Routine Stage 3a chronic kidney disease (HCC) 1 Occurrences starting 03/13/2023 until 04/11/2024 [facility] Work Phone: Comment on above: 1 Occurrences starti ng 03/13/2023 until 04/11/2024 [facility] Immunizations Immunization Date Immunization Notes Care Provider Fa [facility] 03-18-2024 COVID-19 vaccine, ag e 12+ yr, 2022- season (Akella-Cureeo) Erwin Garcia MD Work Phone: [facility] 02-18-2024 respiratory syncytia l virus (RSV) vaccine, adjuvanted (AREXVY) Erwin Garcia MD Work Phone: [facility] 08-28-2023 Flu vaccine, quadrivalent, high-dose, preservative free, age 65y+ (FLUZONE) Trell Goldman CARPET YARN WINDER OPERATOR-RIGHT OF WAY AGENT Work Phone: [facility] Work Phone: 08-28-2023 influenza virus vacc ine, unspecified formulation Isael Lebron CARPET YARN WINDER OPERATOR.RIGHT OF WAY AGENT Work Phone: [facility] 08-23-2022 influenza, high dose seasonal, preservative-free Erwin Garcia MD Work Phone: [facility] 08-23-2022 influenza virus vacc ine, unspecified formulation Erwin Garcia MD Work Phone: [facility] 08-28-2021 influenza, high-dose , quadrivalent vaccine (FLUZONE HIGH DOSE QUADRIVALENT) Khadijah Older CARPET YARN WINDER OPERATOR.RIGHT OF WAY AGENT Work Phone: [facility] Work Phone: 08-10-2020 influenza, high dose seasonal, preservative-free Khadijah Older CARPET YARN WINDER OPERATOR.RIGHT OF WAY AGENT Work Phone: [facility] 11-24-2019 zoster vaccine recombinant Khadijah Older CARPET YARN WINDER OPERATOR.RIGHT OF WAY AGENT Work Phone: [facility] 09-23-2019 zoster vaccine recombinant Khadijah Older CARPET YARN WINDER OPERATOR.RIGHT OF WAY AGENT Work Phone: [facility] 08-04-2019 influenza, high dose seasonal, preservative-free Khadijah Older CARPET YARN WINDER OPERATOR.RIGHT OF WAY AGENT Work Phone: [facility] 08-04-2019 pneumococcal polysaccharide vaccine, 23 valent Khadijah Older CARPET YARN WINDER OPERATOR.RIGHT OF WAY AGENT Work Phone: [facility] [facility] 08-03-2018 influenza, high dose seasonal, preservative-free Khadijah Older CARPET YARN WINDER OPERATOR.RIGHT OF WAY AGENT Work Phone: [facility] Work Phone: 08-03-2018 pneumococcal conjuga te vaccine, 13 valent Khadijah Older CARPET YARN WINDER OPERATOR.RIGHT OF WAY AGENT Work Phone: [facility] Work Phone: 07-30-2017 influenza, injectabl e, quadrivalent, contains preservative Khadijah Older CARPET YARN WINDER OPERATOR.RIGHT OF WAY AGENT Work Phone: [facility] 04-04-2017 tetanus toxoid, redu reynaldo diphtheria toxoid, and acellular pertussis vaccine, adsorbed Khadijah Older CARPET YARN WINDER OPERATOR.RIGHT OF WAY AGENT Work Phone: [facility] Work Phone: 09-07-2016 influenza, injectabl e, quadrivalent, contains preservative Khadijah Older CARPET YARN WINDER OPERATOR.RIGHT OF WAY AGENT Work Phone: [facility] 09-07-2015 influenza, injectabl e, quadrivalent, contains preservative Khadijah Older CARPET YARN WINDER OPERATOR.RIGHT OF WAY AGENT Work Phone: [facility] 09-14-2013 pneumococcal polysaccharide vaccine, 23 valent Khadijah Older CARPET YARN WINDER OPERATOR.RIGHT OF WAY AGENT Work Phone: [facility] 08-31-2012 influenza virus vacc ine, unspecified formulation Khadijah Older CARPET YARN WINDER OPERATOR.RIGHT OF WAY AGENT Work Phone: [facility] 10-31-2009 novel influenza-H1N1 -09, preservative-free, injectable Erwin Garcia MD Work Phone: [facility] 03-17-2008 tetanus and diphther ia toxoids, adsorbed, preservative free, for adult use (2 Lf of tetanus toxoid and 2 Lf of diphtheria toxoid) Khadijah Older CARPET YARN WINDER OPERATOR.RIGHT OF WAY AGENT Work Phone: [facility] Work Phone: Payers Date Payer Category Payer Self-pay 2019 Private Health Insurance MMO MED ICARE SUPPLEMENT [id number] 2019 Unknown MMO MMO MEDICARE SUPPLEMENT [id number] 2019-Present [phone] [address] [place], [place] [address] Indemnity [id number] 2019 Unknown MMO MMO MEDICARE SUPPLEMENT [id number] 2019-Present [phone] [address] [place] [id number] Indemnity [id number] 2019 Unknown [id number] 2017 Medicare MEDICARE MEDICAR E A AND B [id number] 2017-Present [phone] [place] [address] Medicare [id number] 2017 Medicare [id number] 2017 Medicare [id number] 1950 Unknown [id number] 1950 Unknown [id number] Unknown [id number] Unknown [id number] Unknown [id number] Unknown [id number] Unknown [id number] 462 Unknown [id number] Social History Date Type Detail Facility Start: 08-28-2021 End: 01-01-2024 Tobacco smoking status MEIS Smokes tobacco daily [facility] Work Phone: [facility] of [facility] Work Phone: History of tobacco use Pipe Smoker [place] [facility] Work Phone: Start: 03-08-2022 End: 03-18-2025 Alcohol intake Current drinker of alcohol (finding) [facility] Start: 03-08-2022 End: 01-01-2024 Alcohol intake [facility] Work Phone: Start: 04-20-2008 History SDOH Alcohol Comment 1-2 beers daily [facility] Start: 1950 Sex Assigned At Not on file [facility] Start: 03-25-2022 End: 01-01-2024 Exposure to SARS-CoV-2 (event) Not sure [facility] Work Phone: Start: 08-28-2021 End: 01-01-2024 Tobacco use and exposure Smokeless tobacco non-user [facility] Work Phone: Start: 03-13-2023 History SDOH Alcohol Frequency 5 [facility] Start: 03-13-2023 History SDOH Alcohol Std Drinks 1 [facility] Start: 03-13-2023 End: 01-01-2024 Alcohol Use Disorder Identification Test - Consumption [AUDIT-C] [facility] Work Phone: How often to you hav e a drink containing alcohol? 4 or more times a week [facility] Work Phone: How many standard dr inks containing alcohol do you have on a typical day? 1 or 2 [facility] Work Phone: How often do you hav e 6 or more drinks on 1 occasion? Never [facility] Work Phone: Adult Depression Scr eening Assessment 0 [facility] Work Phone: Start: 06-12-2015 Tobacco smoking stat us MEIS Unknown if ever smoked [facility] Start: 1950 Sex Assigned At Male W [facility] Start: 06-14-2024 Tobacco Comment start age 16 [facility] Start: 01-31-2025 End: 02-26-2025 Tobacco smoking status NHIS Current Light tobacco smoker [facility] Start: 01-31-2025 End: 02-27-2025 Sex Male (finding) [facility] Goals Date Patient Goal Desired Activity /State Functional Status Date Assessment Result Facility 04-23-2025 [place] - suicide severity rating scale screener - recent [C-SSRS] [facility] Work Phone: 03-18-2025 Total score [AUDIT-C] 4 03/18/20 25 9:26 AM Erwin Herrera MD [facility] 02-27-2025 Functional status Bedrest [facility] Work Phone: 09-14-2014 Are you deaf, or do you have serious difficulty hearing No 09/14/2014 8:53 AM Rebeca Busch RN No [facility] 09-14-2014 Are you blind, or do you have serious difficulty seeing, even when wearing glasses No 09/14/2014 8:53 AM Rebeca Busch RN No [facility] 09-14-2014 Do you have serious difficulty walking or climbing stairs No 09/14/2014 8:53 AM Rebeca Busch RN No [facility] 09-14-2014 Do you have difficul ty dressing or bathing No 09/14/2014 8:53 AM Rebeca Busch RN No [facility] 09-14-2014 Because of a physica l, mental, or emotional condition, do you have difficulty doing errands alone such as visiting a physician's office or shopping No 09/14/2014 8:53 AM Rebeca Busch RN No [facility] Mental Status Date Assessment Result Facility 02-27-2025 Cognitive function Voice/Name [facility] Work Phone: 09-14-2014 Because of a physica l, mental, or emotional condition, do you have serious difficulty concentrating, remembering, or making decisions No 09/14/2014 8:53 AM Rebeca Busch RN No [facility] Clinical Notes 10-04-2008 to 04-24-2025 Discharge InstructionsAttachmentsJustina Kim MD - 04/23/2025 10:19 PM Torie Kim MD - 04/23/2025 10:19 PM Erwin Roman MD - 03/18/2025 9:50 AM EDTPatient Instructions Note Date & Type Note Facility 04-24-2025 Hospital Discharg e instructions Justina Kim MD - 04/24/2025 12:39 AM EDT Please feel free to return to the emergency department with any additional concerns. The following attachments cannot be sent through Care Everywhere.Gallstones Discharge Instructions ([place])documented in this encounter [facility] Work Phone: 04-23-2025 Physician Emergency department Note 74-year-old male smoker history of high cholesterol presents with a chief complaint of anterior chest pain starting about 20 to 30 minutes prior to arrival while watching TV. It was associated with shortness of breath and profuse diaphoresis. He did take 1 sublingual nitro without significant improvement. He describes the chest pain as heavy and constant as if someone was sitting on his chest. No radiating symptoms to extremity neck or jaw. Review of Systems Physical Exam Vitals and nursing note reviewed. Constitutional: Appearance: He is not ill-appearing or toxic-appearing. HENT: Head: Normocephalic and atraumatic. Right Ear: Tympanic membrane normal. Left Ear: Tympanic membrane normal. Nose: Nose normal. Mouth/Throat: Mouth: Mucous membranes are moist. Pharynx: No oropharyngeal exudate or posterior oropharyngeal erythema. Eyes: Extraocular Movements: Extraocular movements intact. Conjunctiva/sclera: Conjunctivae normal. Pupils: Pupils are equal, round, and reactive to light. Cardiovascular: Rate and Rhythm: Normal rate and regular rhythm. Pulmonary: Effort: Pulmonary effort is normal. No respiratory distress. Breath sounds: Normal breath sounds. No wheezing, rhonchi or rales. Abdominal: General: There is no distension. Palpations: Abdomen is soft. There is no mass. Tenderness: There is no abdominal tenderness. There is no guarding. Musculoskeletal: General: No deformity. Normal range of motion. Cervical back: Neck supple. No tenderness. Skin: General: Skin is warm and dry. Neurological: General: No focal deficit present. Mental Status: He is alert and oriented to person, place, and time. Psychiatric: Mood and Affect: Mood normal. Labs Reviewed BASIC METABOLIC PANEL - Abnormal Result Value Glucose 121 (*) Sodium 139 Potassium 3.8 Chloride 106 Bicarbonate 27 Anion Gap 10 Urea Nitrogen 22 Creatinine 1.42 (*) eGFR 53 (*) Calcium 9.3 HEPATIC FUNCTION PANEL - Abnormal Albumin 4.0 Bilirubin, Total 0.3 Bilirubin, Direct 0.1 Alkaline Phosphatase 83 ALT 69 (*) AST 113 (*) Total Protein 6.4 PROTIME-INR - Normal Protime 10.9 INR 1.0 APTT - Normal aPTT 31 Narrative: The APTT is no longer used for monitoring Unfractionated Heparin Therapy. For monitoring Heparin Therapy, use the Heparin Assay. SERIAL TROPONIN-INITIAL - Normal Troponin I, High Sensitivity 5 Narrative: Less than 99th percentile of normal range cutoff- Female and children under 18 years old <14 ng/L; Male <21 ng/L: Negative Repeat testing should be performed if clinically indicated. Female and children under 18 years old 14-50 ng/L; Male 21-50 ng/L: Consistent with possible cardiac damage and possible increased clinical risk. Serial measurements may help to assess extent of myocardial damage. >50 ng/L: Consistent with cardiac damage, increased clinical risk and myocardial infarction. Serial measurements may help assess extent of myocardial damage. NOTE: Children less than 1 year old may have higher baseline troponin levels and results should be interpreted in conjunction with the overall clinical context. NOTE: Troponin I testing is performed using a different testing methodology at [facility] than at [facility]. Direct result comparisons should only be made within the same method. SERIAL TROPONIN, 1 HOUR - Normal Troponin I, High Sensitivity 5 Narrative: Less than 99th percentile of normal range cutoff- Female and children under 18 years old <14 ng/L; Male <21 ng/L: Negative Repeat testing should be performed if clinically indicated. Female and children under 18 years old 14-50 ng/L; Male 21-50 ng/L: Consistent with possible cardiac damage and possible increased clinical risk. Serial measurements may help to assess extent of myocardial damage. >50 ng/L: Consistent with cardiac damage, increased clinical risk and myocardial infarction. Serial measurements may help assess extent of myocardial damage. NOTE: Children less than 1 year old may have higher baseline troponin levels and results should be interpreted in conjunction with the overall clinical context. NOTE: Troponin I testing is performed using a different testing methodology at [facility] than at other [facility]. Direct result comparisons should only be made within the same method. LIPASE - Normal Lipase 51 Narrative: Venipuncture immediately after or during the administration of Metamizole may lead to falsely low results. Testing should be performed immediately prior to Metamizole dosing. CBC WITH AUTO DIFFERENTIAL WBC 6.2 nRBC 0.0 RBC 4.84 Hemoglobin 13.8 Hematocrit 42.0 MCV 87 MCH 28.5 MCHC 32.9 RDW 13.6 Platelets 174 Neutrophils % 53.3 Immature Granulocytes %, Automated 0.2 Lymphocytes % 33.0 Monocytes % 11.3 Eosinophils % 1.9 Basophils % 0.3 Neutrophils Absolute 3.29 Immature Granulocytes Absolute, Automated 0.01 Lymphocytes Absolute 2.04 Monocytes Absolute 0.70 Eosinophils Absolute 0.12 Basophils Absolute 0.02 TROPONIN SERIES- (INITIAL, 1 HR) Narrative: The following orders were created for panel order Troponin I Series, High Sensitivity (0, 1 HR). Procedure Abnormality Status --------- ------ Troponin I, High Sensiti...[[id number]] Normal Final result Troponin, High Sensitivi...[[id number]] Normal Final result Please view results for these tests on the individual orders. CT abdomen pelvis wo IV contrast Final Result 1. A 6 mm radiopaque stone is present in the gallbladder neck, with slightly indistinct appearance of the gallbladder wall, although there is no gallbladder distention, pericholecystic stranding or surrounding fluid. No intrahepatic or extrahepatic biliary dilatation is present. Liver is unremarkable in appearance within limits of noncontrast exam. 2. Somewhat thickened bladder wall may represent sequela of chronic outlet obstruction secondary to prostatomegaly, although correlation with urinalysis is recommended to exclude cystitis. 3. Numerous diverticula are present in the descending and sigmoid colon without evidence of acute diverticulitis. 4. Right kidney surgically absent, and was atrophic in appearance on previous exam in 2013. A tubular fluid attenuating structure in the right adnexa, extending into the bladder is favored to represent a dilated ureteral remnant. 5. Numerous calcifications throughout the spleen likely represent chronic sequela of prior granulomatous process. MACRO: None Signed by: Remy Ernst 04/24/2025 12:23 AM Dictation workstation: [id number] XR chest 1 view Final Result No acute cardiopulmonary disease. Signed by Rom Torres Procedures Medical Decision Making 74-year-old male smoker history of high cholesterol presents with a chief complaint of anterior chest pain starting about 20 to 30 minutes prior to arrival while watching TV. It was associated with shortness of breath and profuse diaphoresis. He did take 1 sublingual nitro without significant improvement. He describes the chest pain as heavy and constant as if someone was sitting on his chest. No radiating symptoms to extremity neck or jaw. Shortly after arrival he started having fairly severe nausea and vomiting. LFTs and lipase were elevated. His ALT and AST are slightly elevated. His cardiac workup is negative. He was treated with a liter of normal saline and 5 mg IVP Compazine and is feeling much better. His CT scan is consistent with a 6 mm stone in the gallbladder neck. He has seen a surgeon regarding his gallbladder from [place] in the past. I believe he should follow-up with general surgery but does not need admitted at this time. Patient feels comfortable being discharged, prescription will be sent to his pharmacy. DDx: STEMI, ACS, cholelithiasis, cholecystitis, biliary colic, pancreatitis Amount and/or Complexity of Data Reviewed ECG/medicine tests: independent interpretation performed. Details: Sinus rhythm rate of 62, narrow complex, normal axis, no ST elevation or depression, no ectopy. Diagnoses as of 04/24/25 0040 Calculus of gallbladder without cholecystitis without obstruction Biliary colic Justina Kim MD 04/23/25 2220 Justina Kim MD 04/24/25 0040 [facility] Work Phone: 04-23-2025 Emergency department Note 74-year-old male smoker history of high cholesterol presents with a chief complaint of anterior chest pain starting about 20 to 30 minutes prior to arrival while watching TV. It was associated with shortness of breath and profuse diaphoresis. He did take 1 sublingual nitro without significant improvement. He describes the chest pain as heavy and constant as if someone was sitting on his chest. No radiating symptoms to extremity neck or jaw. Review of Systems Physical Exam Vitals and nursing note reviewed. Constitutional: Appearance: He is not ill-appearing or toxic-appearing. HENT: Head: Normocephalic and atraumatic. Right Ear: Tympanic membrane normal. Left Ear: Tympanic membrane normal. Nose: Nose normal. Mouth/Throat: Mouth: Mucous membranes are moist. Pharynx: No oropharyngeal exudate or posterior oropharyngeal erythema. Eyes: Extraocular Movements: Extraocular movements intact. Conjunctiva/sclera: Conjunctivae normal. Pupils: Pupils are equal, round, and reactive to light. Cardiovascular: Rate and Rhythm: Normal rate and regular rhythm. Pulmonary: Effort: Pulmonary effort is normal. No respiratory distress. Breath sounds: Normal breath sounds. No wheezing, rhonchi or rales. Abdominal: General: There is no distension. Palpations: Abdomen is soft. There is no mass. Tenderness: There is no abdominal tenderness. There is no guarding. Musculoskeletal: General: No deformity. Normal range of motion. Cervical back: Neck supple. No tenderness. Skin: General: Skin is warm and dry. Neurological: General: No focal deficit present. Mental Status: He is alert and oriented to person, place, and time. Psychiatric: Mood and Affect: Mood normal. Labs Reviewed BASIC METABOLIC PANEL - Abnormal Result Value Glucose 121 (*) Sodium 139 Potassium 3.8 Chloride 106 Bicarbonate 27 Anion Gap 10 Urea Nitrogen 22 Creatinine 1.42 (*) eGFR 53 (*) Calcium 9.3 HEPATIC FUNCTION PANEL - Abnormal Albumin 4.0 Bilirubin, Total 0.3 Bilirubin, Direct 0.1 Alkaline Phosphatase 83 ALT 69 (*) AST 113 (*) Total Protein 6.4 PROTIME-INR - Normal Protime 10.9 INR 1.0 APTT - Normal aPTT 31 Narrative: The APTT is no longer used for monitoring Unfractionated Heparin Therapy. For monitoring Heparin Therapy, use the Heparin Assay. SERIAL TROPONIN-INITIAL - Normal Troponin I, High Sensitivity 5 Narrative: Less than 99th percentile of normal range cutoff- Female and children under 18 years old <14 ng/L; Male <21 ng/L: Negative Repeat testing should be performed if clinically indicated. Female and children under 18 years old 14-50 ng/L; Male 21-50 ng/L: Consistent with possible cardiac damage and possible increased clinical risk. Serial measurements may help to assess extent of myocardial damage. >50 ng/L: Consistent with cardiac damage, increased clinical risk and myocardial infarction. Serial measurements may help assess extent of myocardial damage. NOTE: Children less than 1 year old may have higher baseline troponin levels and results should be interpreted in conjunction with the overall clinical context. NOTE: Troponin I testing is performed using a different testing methodology at [facility] than at other [facility]. Direct result comparisons should only be made within the same method. SERIAL TROPONIN, 1 HOUR - Normal Troponin I, High Sensitivity 5 Narrative: Less than 99th percentile of normal range cutoff- Female and children under 18 years old <14 ng/L; Male <21 ng/L: Negative Repeat testing should be performed if clinically indicated. Female and children under 18 years old 14-50 ng/L; Male 21-50 ng/L: Consistent with possible cardiac damage and possible increased clinical risk. Serial measurements may help to assess extent of myocardial damage. >50 ng/L: Consistent with cardiac damage, increased clinical risk and myocardial infarction. Serial measurements may help assess extent of myocardial damage. NOTE: Children less than 1 year old may have higher baseline troponin levels and results should be interpreted in conjunction with the overall clinical context. NOTE: Troponin I testing is performed using a different testing methodology at [facility] than at other [facility]. Direct result comparisons should only be made within the same method. LIPASE - Normal Lipase 51 Narrative: Venipuncture immediately after or during the administration of Metamizole may lead to falsely low results. Testing should be performed immediately prior to Metamizole dosing. CBC WITH AUTO DIFFERENTIAL WBC 6.2 nRBC 0.0 RBC 4.84 Hemoglobin 13.8 Hematocrit 42.0 MCV 87 MCH 28.5 MCHC 32.9 RDW 13.6 Platelets 174 Neutrophils % 53.3 Immature Granulocytes %, Automated 0.2 Lymphocytes % 33.0 Monocytes % 11.3 Eosinophils % 1.9 Basophils % 0.3 Neutrophils Absolute 3.29 Immature Granulocytes Absolute, Automated 0.01 Lymphocytes Absolute 2.04 Monocytes Absolute 0.70 Eosinophils Absolute 0.12 Basophils Absolute 0.02 TROPONIN SERIES- (INITIAL, 1 HR) Narrative: The following orders were created for panel order Troponin I Series, High Sensitivity (0, 1 HR). Procedure Abnormality Status --------- ------ Troponin I, High Sensiti...[[id number]] Normal Final result Troponin, High Sensitivi...[[id number]] Normal Final result Please view results for these tests on the individual orders. CT abdomen pelvis wo IV contrast Final Result 1. A 6 mm radiopaque stone is present in the gallbladder neck, with slightly indistinct appearance of the gallbladder wall, although there is no gallbladder distention, pericholecystic stranding or surrounding fluid. No intrahepatic or extrahepatic biliary dilatation is present. Liver is unremarkable in appearance within limits of noncontrast exam. 2. Somewhat thickened bladder wall may represent sequela of chronic outlet obstruction secondary to prostatomegaly, although correlation with urinalysis is recommended to exclude cystitis. 3. Numerous diverticula are present in the descending and sigmoid colon without evidence of acute diverticulitis. 4. Right kidney surgically absent, and was atrophic in appearance on previous exam in 2013. A tubular fluid attenuating structure in the right adnexa, extending into the bladder is favored to represent a dilated ureteral remnant. 5. Numerous calcifications throughout the spleen likely represent chronic sequela of prior granulomatous process. MACRO: None Signed by: Remy Ernst 04/24/2025 12:23 AM Dictation workstation: [id number] XR chest 1 view Final Result No acute cardiopulmonary disease. Signed by Rom Torres Procedures Medical Decision Making 74-year-old male smoker history of high cholesterol presents with a chief complaint of anterior chest pain starting about 20 to 30 minutes prior to arrival while watching TV. It was associated with shortness of breath and profuse diaphoresis. He did take 1 sublingual nitro without significant improvement. He describes the chest pain as heavy and constant as if someone was sitting on his chest. No radiating symptoms to extremity neck or jaw. Shortly after arrival he started having fairly severe nausea and vomiting. LFTs and lipase were elevated. His ALT and AST are slightly elevated. His cardiac workup is negative. He was treated with a liter of normal saline and 5 mg IVP Compazine and is feeling much better. His CT scan is consistent with a 6 mm stone in the gallbladder neck. He has seen a surgeon regarding his gallbladder from [place] in the past. I believe he should follow-up with general surgery but does not need admitted at this time. Patient feels comfortable being discharged, prescription will be sent to his pharmacy. DDx: STEMI, ACS, cholelithiasis, cholecystitis, biliary colic, pancreatitis Amount and/or Complexity of Data Reviewed ECG/medicine tests: independent interpretation performed. Details: Sinus rhythm rate of 62, narrow complex, normal axis, no ST elevation or depression, no ectopy. Diagnoses as of 04/24/25 0040 Calculus of gallbladder without cholecystitis without obstruction Biliary colic Justina Kim MD 04/23/25 2220 Justina Kim MD 04/24/25 0040 documented in this encounter [facility] Work Phone: 03-18-2025 Note HNO ID: [id number] Author: ERWIN GARCIA MD Service: ? Author Type: Physician Type: Progress Notes Filed: 03/18/2025 10:10 Note Text: This note was created using [employer]. Subjective Hollie Cullen is a 74 year old male. He had right nephrectomy and ureterectomy 02/25/2025. No malignancy was found. He was also found to have gallstones, felt to be asymptomatic. His lipids and rhinitis were controlled. We prescribe simvastatin and montelukast for him. We reviewed his labs. Review of Systems Constitutional: Negative for fatigue and fever. Respiratory: Negative for cough and shortness of breath. Cardiovascular: Negative for chest pain, palpitations and leg swelling. Gastrointestinal: Negative for nausea and vomiting. Genitourinary: Negative for difficulty urinating and dysuria. ACTIVE PROBLEM LIST Tobacco Use Disorder Chronic Rhinitis Hyperlipidemia CKD (chronic kidney disease) stage 3, GFR 30-59 ml/min ([facility]) Impaired Fasting Glucose Obesity, Class I, Bmi 30-34.9 Bph With Obstruction/Lower Urinary Tract Symptoms Personal History of Skin Cancer Calculus of Gallbladder Without Cholecystitis Without Obstruction PAST SURGICAL HISTORY Procedure Laterality Date APPENDECTOMY 1963 COLONOSCOPY FLX DX W/COLLJ SPEC WHEN PFRMD 1996 Colonoscopy - Polyps COLONOSCOPY FLX DX W/COLLJ SPEC WHEN PFRMD 08/15/2008 Colonoscopy COLONOSCOPY FLX DX W/COLLJ SPEC WHEN PFRMD 06/07/2013 Colonoscopy COLONOSCOPY FLX DX W/COLLJ SPEC WHEN PFRMD 08/19/2018 Colonoscopy F COLONOSCOPY WITH POLYPECTOMY 06/12/2023 LAPAROSCOPY, ENTEROLYSIS 01/25/2014 [facility] NEPHRECTOMY TOT URETERECANDBLDR CUFF SEPAR INCISN Right 02/25/2025 [facility] OPTX ANKLE DISLOCATION W/REPAIR/INT/XTRNL FIXJ Right 2012 ORIF Ankle SKIN BIOPSY HX Social History Tobacco Use Smoking status: Every Day Current packs/day: 0.50 Average packs/day: 0.5 packs/day for 56.0 years (28.0 ttl pk-yrs) Types: Cigarettes, Pipe Smokeless tobacco: Never Tobacco comments: start age 16 Vaping Use Vaping status: Never Used Substance Use Topics Alcohol use: Yes Alcohol/week: 14.0 standard drinks of alcohol Types: 14 Cans of Beer (12oz) per week Comment: 1-2 beers daily Drug use: No Current Outpatient Medications Medication Sig sucralfate (CARAFATE) 1 gram tablet Take 1 g by mouth two times a day before meals. omeprazole (PRILOSEC) 40 mg capsule Take 40 mg by mouth once daily. tamsulosin (FLOMAX) 0.4 mg Take 0.4 mg by mouth once daily. simvastatin (ZOCOR) 40 mg tablet Take 1 tablet by mouth daily at bedtime. dutasteride (AVODART) 0.5 mg capsule Take 1 capsule by mouth once daily. montelukast (SINGULAIR) 10 mg tablet Take 1 tablet by mouth daily at bedtime. For allergies. imiquimod (ALDARA) 5 % cream Apply 1 application to affected area three times a week. triamcinolone acetonide (KENALOG) 0.1 % cream Apply 1 application to affected area twice daily as needed. forehead MULTIVITAMIN TAB Take one(1) tablet daily. No current facility-administered medications for this visit. Objective BP 112/72 Pulse 77 Temp 36.7 ?C (98.1 ?F) (Temporal) Ht 178 cm (5' 10.08) Wt 102.7 kg (226 lb 6.6 oz) SpO2 99% BMI 32.41 kg/m? Physical Exam Constitutional: General: He is not in acute distress. Cardiovascular: Rate and Rhythm: Normal rate and regular rhythm. Heart sounds: No murmur heard. No gallop. Pulmonary: Breath sounds: Normal breath sounds. Abdominal: Palpations: Abdomen is soft. Tenderness: There is abdominal tenderness. There is no guarding or rebound. Musculoskeletal: Right lower leg: No edema. Left lower leg: No edema. Neurological: Mental Status: He is alert. Gait: Gait normal. Latest Ref Rng 03/15/2025 Protein, Total 6.3 - 8.0 g/dL 7.0 Albumin 3.9 - 4.9 g/dL 4.2 Calcium 8.5 - 10.2 mg/dL 9.6 Bilirubin, Total 0.2 - 1.3 mg/dL 0.3 Alkaline Phosphatase 38 - 113 U/L 94 AST 14 - 40 U/L 20 ALT 10 - 54 U/L 28 Glucose 74 - 99 mg/dL 113 (H) BUN 9 - 24 mg/dL 18 Creatinine 0.73 - 1.22 mg/dL 1.44 (H) Sodium 136 - 144 mmol/L 139 Potassium 3.7 - 5.1 mmol/L 4.5 Chloride 98 - 107 mmol/L 104 CO2 22 - 30 mmol/L 26 Anion Gap 8 - 15 mmol/L 9 eGFR >=60 mL/min/1.73m? 52 (L) WBC 3.70 - 11.00 k/uL 5.95 RBC 4.20 - 6.00 m/uL 5.11 Hemoglobin 13.0 - 17.0 g/dL 14.1 Hematocrit 39.0 - 51.0 % 44.0 MCV 80.0 - 100.0 fL 86.1 MCH 26.0 - 34.0 pg 27.6 MCHC 30.5 - 36.0 g/dL 32.0 RDW-CV 11.5 - 15.0 % 13.4 Platelet Count 150 - 400 k/uL 242 MPV 9.0 - 12.7 fL 11.2 Absolute nRBC <0.01 k/uL <0.01 Cholesterol, Total <200 mg/dL 161 Triglyceride <150 mg/dL 123 HDL Cholesterol >39 mg/dL 41 LDL Cholesterol, Calculated <100 mg/dL 98 Non HDL Cholesterol <130 mg/dL 120 VLDL Cholesterol <30 mg/dL 20 TC:HDL Ratio <5.10 3.93 LDL:HDL Ratio <2.54 2.39 Fasting Time hrs 15 Hemoglobin A1C 4.3 - 5.6 % 6.1 (H) Estimated Average Glucose mg/dL 128 Legend: (H) (more content not included)... [facility] 03-18-2025 History of Presen t illness Narrative This note was created using NoteWriter. Subjective Hollie Cullen is a 74 year old male. He had right nephrectomy and ureterectomy 02/25/2025. No malignancy was found. He was also found to have gallstones, felt to be asymptomatic. His lipids and rhinitis were controlled. We prescribe simvastatin and montelukast for him. We reviewed his labs. Review of Systems Constitutional: Negative for fatigue and fever. Respiratory: Negative for cough and shortness of breath. Cardiovascular: Negative for chest pain, palpitations and leg swelling. Gastrointestinal: Negative for nausea and vomiting. Genitourinary: Negative for difficulty urinating and dysuria. ACTIVE PROBLEM LIST Tobacco Use Disorder Chronic Rhinitis Hyperlipidemia CKD (chronic kidney disease) stage 3, GFR 30-59 ml/min ([facility]) Impaired Fasting Glucose Obesity, Class I, Bmi 30-34.9 Bph With Obstruction/Lower Urinary Tract Symptoms Personal History of Skin Cancer Calculus of Gallbladder Without Cholecystitis Without Obstruction PAST SURGICAL HISTORY Procedure Laterality Date APPENDECTOMY 1963 COLONOSCOPY FLX DX W/COLLJ SPEC WHEN PFRMD 1996 Colonoscopy - Polyps COLONOSCOPY FLX DX W/COLLJ SPEC WHEN PFRMD 08/15/2008 Colonoscopy COLONOSCOPY FLX DX W/COLLJ SPEC WHEN PFRMD 06/07/2013 Colonoscopy COLONOSCOPY FLX DX W/COLLJ SPEC WHEN PFRMD 08/19/2018 Colonoscopy F COLONOSCOPY WITH POLYPECTOMY 06/12/2023 LAPAROSCOPY, ENTEROLYSIS 01/25/2014 [facility] NEPHRECTOMY TOT URETEREC&BLDR CUFF SEPAR INCISN Right 02/25/2025 [facility] OPTX ANKLE DISLOCATION W/REPAIR/INT/XTRNL FIXJ Right 2011 ORIF Ankle SKIN BIOPSY HX Social History Tobacco Use Smoking status: Every Day Current packs/day: 0.50 Average packs/day: 0.5 packs/day for 56.0 years (28.0 ttl pk-yrs) Types: Cigarettes, Pipe Smokeless tobacco: Never Tobacco comments: start age 16 Vaping Use Vaping status: Never Used Substance Use Topics Alcohol use: Yes Alcohol/week: 14.0 standard drinks of alcohol Types: 14 Cans of Beer (12oz) per week Comment: 1-2 beers daily Drug use: No Current Outpatient Medications Medication Sig sucralfate (CARAFATE) 1 gram tablet Take 1 g by mouth two times a day before meals. omeprazole (PRILOSEC) 40 mg capsule Take 40 mg by mouth once daily. tamsulosin (FLOMAX) 0.4 mg Take 0.4 mg by mouth once daily. simvastatin (ZOCOR) 40 mg tablet Take 1 tablet by mouth daily at bedtime. dutasteride (AVODART) 0.5 mg capsule Take 1 capsule by mouth once daily. montelukast (SINGULAIR) 10 mg tablet Take 1 tablet by mouth daily at bedtime. For allergies. imiquimod (ALDARA) 5 % cream Apply 1 application to affected area three times a week. triamcinolone acetonide (KENALOG) 0.1 % cream Apply 1 application to affected area twice daily as needed. forehead MULTIVITAMIN TAB Take one(1) tablet daily. No current facility-administered medications for this visit. Objective BP 112/72 Pulse 77 Temp 36.7 C (98.1 F) (Temporal) Ht 178 cm (5' 10.08) Wt 102.7 kg (226 lb 6.6 oz) SpO2 99% BMI 32.41 kg/m Physical Exam Constitutional: General: He is not in acute distress. Cardiovascular: Rate and Rhythm: Normal rate and regular rhythm. Heart sounds: No murmur heard. No gallop. Pulmonary: Breath sounds: Normal breath sounds. Abdominal: Palpations: Abdomen is soft. Tenderness: There is abdominal tenderness. There is no guarding or rebound. Musculoskeletal: Right lower leg: No edema. Left lower leg: No edema. Neurological: Mental Status: He is alert. Gait: Gait normal. Latest Ref [facility] 03/15/2025 Protein, Total 6.3 - 8.0 g/dL 7.0 Albumin 3.9 - 4.9 g/dL 4.2 Calcium 8.5 - 10.2 mg/dL 9.6 Bilirubin, Total 0.2 - 1.3 mg/dL 0.3 Alkaline Phosphatase 38 - 113 U/L 94 AST 14 - 40 U/L 20 ALT 10 - 54 U/L 28 Glucose 74 - 99 mg/dL 113 (H) BUN 9 - 24 mg/dL 18 Creatinine 0.73 - 1.22 mg/dL 1.44 (H) Sodium 136 - 144 mmol/L 139 Potassium 3.7 - 5.1 mmol/L 4.5 Chloride 98 - 107 mmol/L 104 CO2 22 - 30 mmol/L 26 Anion Gap 8 - 15 mmol/L 9 eGFR >=60 mL/min/1.73m 52 (L) WBC 3.70 - 11.00 k/uL 5.95 RBC 4.20 - 6.00 m/uL 5.11 Hemoglobin 13.0 - 17.0 g/dL 14.1 Hematocrit 39.0 - 51.0 % 44.0 MCV 80.0 - 100.0 fL 86.1 MCH 26.0 - 34.0 pg 27.6 MCHC 30.5 - 36.0 g/dL 32.0 RDW-CV 11.5 - 15.0 % 13.4 Platelet Count 150 - 400 k/uL 242 MPV 9.0 - 12.7 fL 11.2 Absolute nRBC <0.01 k/uL <0.01 Cholesterol, Total <200 mg/dL 161 Triglyceride <150 mg/dL 123 HDL Cholesterol >39 mg/dL 41 LDL Cholesterol, Calculated <100 mg/dL 98 Non HDL Cholesterol <130 mg/dL 120 VLDL Cholesterol <30 mg/dL 20 TC:HDL Ratio <5.10 3.93 LDL:HDL Ratio <2.54 2.39 Fasting Time hrs 15 Hemoglobin A1C 4.3 - 5.6 % 6.1 (H) Estimated Average Glucose mg/dL 128 Legend: (H) High (L) Low Assessment and Plan 1. Medicare annual wellness visit, subsequent - ICD9: V70.0, ICD10: Z00.00 (primary diagnosis) - See wellness visit. 2. Encounter for screening examination for other mental health and behavioral disorders - ICD9: V79.8, ICD10: Z13.39 - ANXIETY SCREENING 3. Screening for depression - ICD9: V79.0, ICD10: Z13.31 - DEPRESSION SCREENING 4. Impaired fasting glucose - ICD9: 790.21, ICD10: R73.01 Low carb diet, weight loss. 5. Hyperlipidemia, unspecified hyperlipidemia type - ICD9: 272.4, ICD10: E78.5 - Controlled - Continue current medications - Counseled on healthy diet and regular exercise - Discussed need for and benefit of weight loss. BMI 32.41 kg/(m^2) 6. Tobacco use disorder - ICD9: 305.1, ICD10: F17.200 - Cessation encouraged. - Lung cancer screening scheduled. 7. Stage 3a chronic kidney disease (HCC) - ICD9: 585.3, ICD10: N18.31 - eGFR: 52 Stable - Counseled on avoiding NSAIDs, adequate hydration 8. BPH with obstruction/lower urinary tract symptoms - ICD9: 600.01, 599.69, ICD10: N40.1, N13.8 - Controlled. Follow up with urology about the need for dutasteride. 9. Obesity, Class I, BMI 30-34.9 - ICD9: 278.00, ICD10: E66.811 - Stable. 10. Chronic rhinitis - ICD9: 472.0, ICD10: J31.0 - Controlled. Continue montelukast. 11. Personal history of skin cancer - ICD9: V10.83, ICD10: Z85.828 - Follow up with dermatology. 12. Calculus of gallbladder without cholecystitis without obstruction - ICD9: 574.20, ICD10: K80.20 - Follow up with surgery as needed. Erwin Garcai MD Images from the original note were not included. Hollie Cullen is a 74 year old male here for a Medicare wellness visit. Medicare Health Risk Assessment General Health Fair Exercise: Minutes/Day 30 min Exercise: Days/Week 5 days Alcohol: Daily Use 4 or more times a week Alcohol: Drinks/Day 1 or 2 Alcohol: 6 or more drinks Never Feel off balance No Concerns: Teeth/Dentures No Concerns: Sexual function No Troubled by feelings None of the above Frequency: Eating healthy diet Nearly every day ADLs requiring help None of the above Safety precautions in home/vehicle Yes Smoke, vape, chews tobacco Yes, but I'm not ready to quit Difficulty hearing Yes Difficulty seeing No Current Providers Specialists: I have reviewed specialist-related care of the patient in the medical record. Current care team: Patient Care Team: Erwin Garcia MD as PCP - General (Internal Medicine) Khadijah Raman APRN.YONIS as Fire Extinguisher Tester (Internal Medicine) Isael Lebron APRN, CNP (Lung Cancer Screening) Outside specialists seen: Kentrell Romero MD (Urology) Elana Richmond MD (Surgery) Juan Manuel Vázquez OD (Optometry) Shyam Stark MD (Dermatology- [facility]) Medical/Family history review Reviewed and updated problem list, medical/surgical/family/social history, medications, and allergies. Opioid use review Opioid Medications (last 90 days) No data to display Anxiety/Depression screening Recommendation: no further intervention at this time Cognitive screening Cognitive screening reviewed and Patient declined Mini-Cog test. Functional Observation Was the patient's Timed Up & Go test unsteady or >= 12 seconds? No Advance Care Planning Patient did not wish or was not able to name a surrogate decision maker or provide an advance care plan Measurements BP 112/72 Pulse 77 Temp 36.7 C (98.1 F) (Temporal) Ht 178 cm (5' 10.08) Wt 102.7 kg (226 lb 6.6 oz) SpO2 99% BMI 32.41 kg/m Vision Screening: Follows with optometry/ophthalmology Assessment/Plan Medicare annual wellness visit, subsequent (Z00.00) - Counseled on healthy diet and regular exercise - Fall avoidance information provided - Personalized prevention plan provided - Discussed need for and benefit of weight loss. BMI 32.41 kg/(m^2) - Smoking cessation encouraged; discussed risks to health and quitting strategies. Patient is not ready to quit documented in this encounter [facility] 03-18-2025 Instructions Erwin Garcia MD - 03/18/2025 9:42 AM EDT Call for blood work next year. Screening schedule The following prevention plan is recommended: There are no preventive care reminders to display for this patient. WHAT YOU CAN DO TO PREVENT FALLS Many falls can be prevented. By making some changes, you can lower your chances of falling. Four things YOU can do to prevent falls for you* and your caregiver 1. Begin a regular exercise program Exercise is one of the most important ways to lower your chances of falling. It makes you stronger and helps you feel better. Exercises that improve balance and coordination (like Alexander Chi) are the most helpful. Lack of exercise leads to weakness and increases your chances of falling. Ask your doctor or health care provider about the best type of exercise program for you. 2. Have your health care provider review your medicines Have your doctor or pharmacist review all the medicines you take, even [id number]-vonhtsi medicines. As you get older, the way medicines work in your body can change. Some medicines, or combinations of medicines, can make you sleepy or dizzy and can cause you to fall. 3. Have your vision checked Have your eyes checked by an eye doctor at least once a year. You may be wearing the wrong glasses or have a condition like glaucoma or cataracts that limits your vision. Poor vision can increase your chances of falling. 4. Make your home safer About half of all falls happen at home. To make your home safer: Remove things you can trip over (like papers, books, clothes, and shoes) from stairs and places where you walk. Remove small throw rugs or use double-sided tape to keep the rugs from slipping. Keep items you use often in cabinets you can reach easily without using a step stool. Have grab bars put in next to your toilet and in the tub or shower. Use non-slip mats in the bathtub and on shower floors. Improve the lighting in your home. As you get older, you need brighter lights to see well. Hang light-weight curtains or shades to reduce glare. Have handrails and lights put in on all staircases. Wear shoes both inside and outside the house. Avoid going barefoot or wearing slippers. For more information, contact: Centers for Disease Control and Prevention www.cdc.gov/injury * This information may not apply if you have certain medical conditions. documented in this encounter [facility] 03-18-2025 Note HNO ID: [id number] Author: ERWIN GARCIA MD Service: ? Author Type: Physician Type: Progress Notes Filed: 03/18/2025 10:10 Note Text: Hollie Cullen is a 74 year old male here for a Medicare wellness visit. Medicare Health Risk Assessment General Health Fair Exercise: Minutes/Day 30 min Exercise: Days/Week 5 days Alcohol: Daily Use 4 or more times a week Alcohol: Drinks/Day 1 or 2 Alcohol: 6 or more drinks Never Feel off balance No Concerns: Teeth/Dentures No Concerns: Sexual function No Troubled by feelings None of the above Frequency: Eating healthy diet Nearly every day ADLs requiring help None of the above Safety precautions in home/vehicle Yes Smoke, vape, chews tobacco Yes, but I'm not ready to quit Difficulty hearing Yes Difficulty seeing No Current Providers Specialists: I have reviewed specialist-related care of the patient in the medical record. Current care team: Patient Care Team: Erwin Garcia MD as PCP - General (Internal Medicine) Khadijah Raman APRN.RIGHT OF WAY AGENT as Fire Extinguisher Tester (Internal Medicine) Isael Lebron APRN, CNP (Lung Cancer Screening) Outside specialists seen: Kentrell Romero MD (Urology) Elana Richmond MD (Surgery) Juan Manuel Vázquez OD (Optometry) Shyam Stark MD (Dermatology- [facility]) Medical/Family history review Reviewed and updated problem list, medical/surgical/family/social history, medications, and allergies. Opioid use review Opioid Medications (last 90 days) No data to display Anxiety/Depression screening Recommendation: no further intervention at this time Cognitive screening Cognitive screening reviewed and Patient declined Mini-Cog test. Functional Observation Was the patient's Timed Up AND Go test unsteady or >= 12 seconds? No Advance Care Planning Patient did not wish or was not able to name a surrogate decision maker or provide an advance care plan Measurements BP 112/72 Pulse 77 Temp 36.7 ?C (98.1 ?F) (Temporal) Ht 178 cm (5' 10.08) Wt 102.7 kg (226 lb 6.6 oz) SpO2 99% BMI 32.41 kg/m? Vision Screening: Follows with optometry/ophthalmology Assessment/Plan Medicare annual wellness visit, subsequent (Z00.00) - Counseled on healthy diet and regular exercise - Fall avoidance information provided - Personalized prevention plan provided - Discussed need for and benefit of weight loss. BMI 32.41 kg/(m2) - Smoking cessation encouraged; discussed risks to health and quitting strategies. Patient is not ready to quit [facility] 03-14-2025 Telephone encounter Note notified fasting labs have been ordered. Manda Gr LPN [facility] 03-14-2025 Miscellaneous Notes notified fasting labs have been ordered. Manda Gr LPN Pt's calls to report that pt has an appt 5/2 and is asking if pt needs to get labs done before appt. reports they will be in town tomorrow and would like to get the labs done then since they live in [place]. Call when labs have been ordered. Patricia Mckinney LPN documented in this encounter [facility] 03-14-2025 Telephone encounter Note Pt's calls to report that pt has an appt 5/2 and is asking if pt needs to get labs done before appt. reports they will be in town tomorrow and would like to get the labs done then since they live in [place]. Call when labs have been ordered. Patricia Mckinney LPN [facility] 03-14-2025 Evaluation note Diagnosis Impaired fasting glucose Stage 3a chronic kidney disease (HCC) Hyperlipidemia, unspecified hyperlipidemia type documented in this encounter [facility]04-16-2025 Telephone encounter Note* Telephone Encounter - Charlotte Houng Barker - 03/02/2025 9:22 AM EDT Prescription Refill Information The patient has been identified by name and date of : Yes Caregiver verified no other encounters exist for this prescription request: Yes Caregiver confirmed with patient/requestor that no other refills are due, in the near future, with this provider at this time: Yes The last office visit in the department: 03/18/24 Does the patient have a future office visit with this provider/department: Yes Requested Prescriptions Pending Prescriptions Disp Refills simvastatin (ZOCOR) 40 mg tablet 90 tablet 3 Sig: Take 1 tablet by mouth daily at bedtime. Huong Clark [facility] March 02, 2025 9:23 AM [facility]04-16-2025 Miscellaneous Notes* Telephone Encounter - Charlotte Huong Barker - 03/02/2025 9:22 AM EDT Prescription Refill Information The patient has been identified by name and date of : Yes Caregiver verified no other encounters exist for this prescription request: Yes Caregiver confirmed with patient/requestor that no other refills are due, in the near future, with this provider at this time: Yes The last office visit in the department: 03/18/24 Does the patient have a future office visit with this provider/department: Yes Requested Prescriptions Pending Prescriptions Disp Refills simvastatin (ZOCOR) 40 mg tablet 90 tablet 3 Sig: Take 1 tablet by mouth daily at bedtime. Huong Clark [facility] March 02, 2025 9:23 AM [facility] Consult note [facility] Medical Records Department [address] [place] [address] Pre-Anesthesia Evaluation 02/25/25 0710 MR#: [id number] Acct: [id number] Name: HOLLIE CULLEN Rep #:[id number] : 1950 74 From: José Michael MD PCP: Dr. Erwin Garcia MD Status:R EG [facility] Y Race: C Location: [place] [address] ASA Classification* ASA Classification ASA Classification: 2 Assessment & Plan Anesthesia* Anesthesia Assessment Anesthesia Assessment: Discussed sedation and/or anesthesia options, risks, benefits, and alternatives with patient/parents/legal guardian/POA. Questions invited. The patient/parents/legal guardian/POA seems to understand and agrees to proceedwith anesthesia plan. Reviewed the physical assessment, medical history, allergy history and patient home medications list prior to surgery/procedure/anesthetic and documented any changes. Performed airway and anesthesia risk assessments. Anesthesia Type Anesthesia Type: General Anesthesia Focused Assessment* Temperature: 97.3 F Pulse Rate: 64 Blood Pressure: 144/85 Respiratory Rate: 20 Pulse Ox: 95 Airway Assessment Mouth opens: >3 cm Mallampati Score: II Focused Labs Anesthesia Preop lab: CBC WBC 7.6 K/mm3 (4.4-11.0) 01/31/25 10:55 01/31/25 RBC 5.17 M/mm3 (4.6-6.2) 01/31/25 10:55 01/31/25 Hgb 14.7 g/dL (13.0-16.5) 01/31/25 10:55 01/31/25 Hct 43.8 % (40-54) 01/31/25 10:55 01/31/25 Plt Count 188 K/mm3 (150-450) 01/31/25 10:55 01/31/25 CHEMISTRY Potassium 4.5 mmol/L (3.3-5.1) 01/31/25 10:55 01/31/25 Sodium 138 mmol/L (133-145) 01/31/25 10:55 01/31/25 BUN 19 mg/dL (4-19) 01/31/25 10:55 01/31/25 Creatinine 1.42 mg/dL (0.70-1.20) H 01/31/25 10:55 Glucose 116 mg/dL (70-99) H 01/31/25 10:55 01/31/25 COAG Pre-Assessment Diagnosis/Proposed Procedure Planned Operative Procedure(s): (R) Laparoscopic, Robotic, Nephrectomy, Ureterectomy Anesthesia History 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 When Was Last Pacemaker Check QUESTION #4 FULL TEXT: You/Your Family Experience fever (hyperthermia) with Anesthesia Last Oral Intake Last Oral intake: Last Oral Intake NPO since 22:00 02/25/25 06:26 Meds taken in AM with sips of water? 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 Has anyone observed you stop No 02/11/25 13:33 breathing during sleep? STOP Results Negative 02/11/25 13:33 QUESTION #5 FULL TEXT : Do you snore loudly (louder than talking or can be heard through closeddoors)? 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 Specify any problems Hx of Preganancy in last 3 N/A 02/11/25 13:33 Months Nurse Filling Out Transfusion JZOLLINGE 02/11/25 13:33 & Questions: Date: 02/11/25 02/11/25 13:33 Time: 13:35 02/11/25 13:33 Patient unable to answer at this time (ie. 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: /Reproductive Hx- hop farm worker Hx Now No 02/11/25 13:33 Gestational Age (in weeks): EDC: Hx Hx Para Hx Section SAB No 02/11/25 13:33 Active Medications Active Medications: Current Medications Generic Name Dose Route Start Last Admin Trade Name Freq PRN Reason Stop Dose Admin Cefazolin Sodium 2 gm/ N/A 20 mls @ 400 mls/hr 02/25/25 07:30 IV 02/25/25 07:32 X1 ONE Sodium Chloride 1,000 mls @ 15 mls/hr 02/25/25 06:00 02/25/25 06:42 IV 15 mls/hr .Q48H MARVIN Administration PFSH Medical History Wears glasses Wears dentures Wears partial dentures Alcohol use Loss of consciousness Dietary restriction Gastric reflux Smoker Chronic cough Hyperlipemia Kidney disease Home Medications ?Medication ?Instructions ?Recorded ?Last Taken ?Type multivitamin with folic acid 400 1 tab PO DAILY 02/04/25 History mcg tablet (Thera) Held on 02/11/25. Instructions: WHILE TAKING CIPRO dutasteride 0.5 mg capsule 0.5 mg PO DAILY 01/31/25 Un known History montelukast 10 mg tablet 10 mg PO QHS allergies 01/3102/24/25 History simvastatin 40 mg tablet 40 mg PO QHS 01/31/25 Unknow n History omeprazole 40 mg capsule,delayed 40 mg PO QDAY #30 cap s 02/08/25 Unknown Rx release ciprofloxacin HCl 500 mg tablet 500 mg PO .QD 02/11/25 02/24/25 History sucralfate 1 gram tablet 1 g PO QACHS #56 tabs 02/24/25 Rx Allergy/AdvReac Type Severity Reaction Status Date / Time No Known Allergies Allergy Verified 02/25/25 06:24 Family History Mother Diabetes Brother Diabetes Colon cancer Surgical History Hx of laparoscopy Status post appendectomy Social History Smoking Status: Light Smoker (<10/day) quit status: not considering quitting Review of Systems (Anesthesia) ROS Narrative System reviewed and no additional complaints, except as documented. 02/25/25 0710 > Date _ José Michael MD Cosigner Signature: Date CC: ~ Signed [facility]04-13-2025 Consult note [facility] Medical Records Department [address] [place] [address] Anesthesia Postop Eval II 02/25/25 1111 MR#: [id number] Acct: [id number] Name: GIOHOLLIE Rep #:[id number] : 1950 74 From: José Michael MD PCP: Dr. Erwin Garcia MD Status:A DM MARYCHUY Y Race: C Location: [address] Anesthesia Postop Eval I Sum Postop Eval Completion status Anesthesia document: Postop Eval 1 completed: Yes Anesthesia Postop Eval I Summary Anesthesia Postop Eval I Summary: Anesthesia Postop Eval I: Assessment Summary Airway patent Yes 02/25/25 10:06 DIRECTOR [email or web address] Spontaneous unlabored Yes 02/25/25 10:06 DIRECTOR [email or web address] respirations Mental status Awake,Calm 02/25/25 10:06 DIRECTOR [email or web address] nausea No 02/25/25 10:06 DIRECTOR [email or web address] Vomiting No 02/25/25 10:06 DIRECTOR [email or web address] Anesthesia Postop Eval I: Fluid Summary Crystalloid volume administer 1,600 02/25/25 10:06 DIRECTOR [email or web address] (ml) Colloids volume administered ( ml) Blood Product volume administered (ml) Total IV fluid infused 1,600 02/25/25 10:06 DIRECTOR [email or web address] Anesthesia Postop Eval I: Summary Notes Anesthesia Complication No 02/25/25 10:06 DIRECTOR [email or web address] Anesthesia Complication Comment: Post-operative progress note Anesthesia: Postop Eval II Evaluation Mental status: Awake Pain Level: 0 nausea: No Vomiting: No 02/25/25 1111 > Date _ José Haney Signature: Date CC: ~ Signed [facility]04-13-2025 Discharge summary [facility] Medical Records Department [address] [place] [address] Instructions for Home/Discharge Instructions 02/25/25 0944 MR#: [id number] Acct: [id number] Name: HOLLIE CULLEN Rep #:[id number] : 1950 74 From: Los Romero MD PCP: Dr. Erwin Garcia MD Status:R [facility] Discharge Instructions Diet Discharge Diet: No restrictions DC O2, CPAP, BIPAP needs Home O2 Discharge instructions: No Dressing / Incision Discharge Activity: Return to Normal Activity and May Not Drive (while taking narcotic pain medications.) Dressing / Incision Call your doctor if you observe: Fever of 101 or Higher Follow Up Care Please Follow Up With: Los Romero MD When: Call [phone] for an appointment Test Results: Test results from this visit will be discussed in further detail at your follow- up appointment, if applicable. Discharge Plan Admission Primary Reason for Your Visit: Right nephro ureterectomy Attending Provider: Los Romero Primary Care Provider: Erwin Garcia Instructions Print Language: Chadian Discharge Orders/Prescriptions Prescriptions: New oxycodone 5 mg tablet 5 mg PO Q6H PRN (Reason: pain) 7 Days Qty: 14 0RF Continued omeprazole 40 mg capsule,delayed release(DR/EC) 40 mg PO QDAY Qty: 30 3RF Rx Instructions: swallow whole; do not crush, chew, dissolve, cut, break sucralfate 1 gram tablet 1 g PO QACHS Qty: 56 0RF Rx Instructions: Take an hour before meals and at bedtime multivitamin with folic acid [Thera] 1 TABLET tablet 1 tab PO DAILY simvastatin 40 mg tablet 40 mg PO QHS montelukast 10 mg tablet 10 mg PO QHS dutasteride 0.5 mg capsule 0.5 mg PO DAILY Discontinued ciprofloxacin HCl 500 mg tablet 500 mg PO .QD Referrals / Follow Up: Los Romero MD [Med Staff - Active Staff] - Erwin Garcia MD [Primary Care Provider] - Disposition Disposition (needs filled in before D/C Order can be placed): Home, Self Care 02/25/25 0944Los Romero MD CC: Dr. Erwin Garcia MD ~ Signed [facility]04-13-2025 History and physical note [facility] Medical Records Department [address] [place] [address] History & Physical Exam 02/25/25 0944 MR#: [id number] Acct: [id number] Name: HOLLIE CULLEN Rep #:[id number] : 1950 74 From: Los Romero MD PCP: Dr. Erwin Garcia MD Status:R [facility] Location: [place] [address] HPI - General General Date of Service: 02/25/25 Chief Complaint: Right nonfunctioning kidney HPI Narrative HOLLIE CULLEN, is a 74 M who presents removal of a large right nonfunctioning kidney that is giving him pain and problems recently with a hospital with an infection. [facility] Medical History Wears glasses Wears dentures Wears partial dentures Alcohol use Loss of consciousness Dietary restriction Gastric reflux Smoker Chronic cough Hyperlipemia Kidney disease Home Medications ?Medication ?Instructions ?Recorded ?Last Taken ?Type multivitamin with folic acid 400 1 tab PO DAILY 02/04/25 History mcg tablet (Thera) dutasteride 0.5 mg capsule 0.5 mg PO DAILY 01/31/25 Un known History montelukast 10 mg tablet 10 mg PO QHS allergies 01/3102/24/25 History simvastatin 40 mg tablet 40 mg PO QHS 01/31/25 Unknow n History omeprazole 40 mg capsule,delayed 40 mg PO QDAY #30 cap s 02/08/25 Unknown Rx release sucralfate 1 gram tablet 1 g PO QACHS #56 tabs 02/24/25 Rx oxycodone 5 mg tablet 5 mg PO Q6H PRN pain 7 days #14 02/25/25 Unknown Rx tabs Allergy/AdvReac Type Severity Reaction Status Date / Time No Known Allergies Allergy Verified 02/25/25 06:24 Family History Mother Diabetes Brother Diabetes Colon cancer Surgical History Hx of laparoscopy Status post appendectomy Social History Smoking Status: Light Smoker (<10/day) quit status: not considering quitting Vital Signs Vital Signs Vital Signs: 02/25/25 06:26 02/25/25 06:28 02/25/25 07:10 Temperature 97.3 F L 97.3 F L Temperature Source Temporal Pulse Rate 64 64 Respiratory Rate 20 H 20 H Respiratory Pattern Normal Blood Pressure 144/85 H 144/85 H Blood Pressure Mean 104 Blood Pressure Source Monitor Blood Pressure Position Semi-Fowlers Blood Pressure Location Right Arm Pulse Ox 95 95 Oxygen Delivery Method Room Air Weight Weight: 104.5 kg Body Mass Index (BMI) 33.0 02/25/25 0944 Cosigner Signature (if applicable): CC: Dr. Los Romero MD; Dr. Erwin Garcia MD~ Signed [facility]04-13-2025 Progress note [facility] Medical Records Department [address] [place] [address] Progress Note - Urology 02/26/25902 MR#: [id number] Acct: [id number] Name: GIOHOLLIE Rep #:[id number] : 1950 74 From: Los Romero MD PCP: Dr. Erwin Garcia MD Status:A DM MARYCHUY Location: MS3 [id number] Subjective Subjective s/p right nephro U doing well d/c osborn home after lunch Objective Data Objective Data Vital Signs: Vital Signs Temp Pulse Resp BP Pulse Ox O2 Del Method O2 Flow Rate 97.7 F L 66 16 105/50 L 93 Room Air 2 02/26/25 06:00 02/26/25 06:00 02/26/25 06:00 02/26/25 06:00 02/26/25 06:00 02/26/25 06:00 02/25/25 15:29 Oxygen Flow Rate (L/min) 2 Oxygen Delivery Method Room Air Weight: 104.5 kg Body Mass Index (BMI) 33.0 Intake & Output: Intake and Output for Last 24 Hours 02/24/25 02/25/25 02/26/25 23:59 23:59 23:59 Intake Total 3670 / 3670 2081.25 / 2081.25 Output Total 2380 / 2380 1225 / 1225 Balance 1290 / 1290 856.25 / 856.25 Lab / Micro Data 02/26/25 05:40 02/26/25 05:40 Labs: Laboratory Results - last 24 hr 02/26/25 05:40: WBC 10.5, RBC 3.94 L, Hgb 11.2 L, Hct 34.0 L, MCV 86.3, MCH 28.4, MCHC 32.9, RDW Std Deviation 41.4, RDW Coeff of Mildred 13.2, Plt Count 153, MPV 11.3, Immature Gran % (Auto) 0.400, Neut% (Auto) 76.9 H, Lymph % (Auto) 11.0 L, Beau[place] % (Auto) 11.4 H, Eos % (Auto) 0.1, Baso % (Auto) 0.2, Absolute Neuts (auto) 8.1 H, Absolute Lymphs (auto) 1.15, Nucleated RBC % 0, Sodium 139, Potassium 4.2, Chloride 109 H, Carbon Dioxide 20.2 L, Anion Gap 10, BUN 15, Creatinine 1.54 H, Estim Creat Clear Calc 52.50, Est GFR (MDRD) Non-Af 48 L, BUN/Creatinine Ratio 9.7 L, Glucose 144 H, Calcium 8.0 02/26/25 0903 Cosigner Signature (if applicable): CC: ~ Signed [facility]04-13-2025 Progress note Author Los Romero [facility] Note Date/Time February 27, 2025 9:5 2am [facility] Medical Records Department [address] [facility] [place] [address] Progress Note - Urology 02/27/25950 MR#: [id number] Acct: [id number] Name: GIOHOLLIE Rep #:[id number] : 1950 74 From: Los Romero MD PCP: Dr. Erwin Garcia MD Status:A DM MARYCHUY Location: FL3 [id number] Subjective Subjective s/p right nephro U anyi reg diet + BMs could not void yesturday add flomax d/c osborn today, if can void okay then home if still can't void or painful then home with osborn to leg bag Objective Data Objective Data Vital Signs: Vital Signs Temp Pulse Resp BP Pulse Ox O2 Del Method O2 Flow Rate 98.4 F 71 14 138/73 H 94 Nasal Cannula 2 02/27/25 08:01 02/27/25 08:01 02/27/25 08:01 02/27/25 08:01 02/27/25 08:01 02/27/25 08:05 02/27/25 08:05 Oxygen Flow Rate (L/min) 2 Oxygen Delivery Method Nasal Cannula Weight: 104.5 kg Body Mass Index (BMI) 33.0 Intake & Output: Intake and Output for Last 24 Hours 02/25/25 02/26/25 02/27/25 23:59 23:59 23:59 Intake Total 3670 / 3670 4858.33 / 4858.33 956.25 / 956.25 Output Total 2380 / 2380 2125 / 2125 1800 / 1800 Balance 1290 / 1290 2733.33 / 2733.33 -843.75 / -843.75 Lab / Micro Data 02/27/25 05:09 02/27/25 05:09 Labs: Laboratory Results - last 24 hr 02/27/25 05:09: WBC 7.8, RBC 3.85 L, Hgb 10.9 L, Hct 32.7 L, MCV 84.9, MCH 28.3,MCHC 33.3, RDW Std Deviation 40.9, RDW Coeff of Mildred 13.2, Plt Count 129 L, MPV 11.2, Immature Gran % (Auto) 0.400, Neut % (Auto) 65.4, Lymph % (Auto) 19.8, Beaufort % (Auto) 12.2 H, Eos % (Auto) 1.8, Baso % (Auto) 0.4, Absolute Neuts (auto) 5.1, Absolute Lymphs (auto) 1.54, Nucleated RBC % 0, Sodium 141, Potassium 3.7, Chloride 112 H, Carbon Dioxide 20.5 L, Anion Gap 8, BUN 12, Creatinine 1.48 H, Estim Creat Clear Calc 54.62, Est GFR (MDRD) Non-Af 50 L, BUN/Creatinine Ratio 8.4 L, Glucose 118 H, Calcium 7.9 02/27/25 0952 <Electronically signed by Los Romero MD> Cosigner Signature (if applicable): CC: ~ Signed [facility] Work Phone: 1(298) 106-737304-13-2025 Progress note [facility] Medical Records Department [address] [place] [address] Progress Note - Urology 02/27/25 0951 MR#: [id number] Acct: [id number] Name: GIOHOLLIE Rep #:[id number] : 1950 74 From: Los Romero MD PCP: Dr. Erwin Garcia MD Status:A DM MARYCHUY Location: MS3 [id number] Subjective Subjective s/p right nephro U anyi reg diet + BMs could not void yesturday add flomax d/c osborn today, if can void okay then home if still can't void or painful then home with osborn to leg bag Objective Data Objective Data Vital Signs: Vital Signs Temp Pulse Resp BP Pulse Ox O2 Del Method O2 Flow Rate 98.4 F 71 14 138/73 H 94 Nasal Cannula 2 02/27/25 08:01 02/27/25 08:01 02/27/25 08:01 02/27/25 08:01 02/27/25 08:01 02/27/25 08:05 02/27/25 08:05 Oxygen Flow Rate (L/min) 2 Oxygen Delivery Method Nasal Cannula Weight: 104.5 kg Body Mass Index (BMI) 33.0 Intake & Output: Intake and Output for Last 24 Hours 02/25/25 02/26/25 02/27/25 23:59 23:59 23:59 Intake Total 3670 / 3670 4858.33 / 4858.33 956.25 / 956.25 Output Total 2380 / 2380 2125 / 2125 1800 / 1800 Balance 1290 / 1290 2733.33 / 2733.33 -843.75 / -843.75 Lab / Micro Data 02/27/25 05:09 02/27/25 05:09 Labs: Laboratory Results - last 24 hr 02/27/25 05:09: WBC 7.8, RBC 3.85 L, Hgb 10.9 L, Hct 32.7 L, MCV 84.9, MCH 28.3,MCHC 33.3, RDW Std Deviation 40.9, RDW Coeff of Mildred 13.2, Plt Count 129 L, MPV 11.2, Immature Gran % (Auto) 0.400, Neut% (Auto) 65.4, Lymph % (Auto) 19.8, Beaufort % (Auto) 12.2 H, Eos % (Auto) 1.8, Baso % (Auto) 0.4, Absolute Neuts (auto) 5.1, Absolute Lymphs (auto) 1.54, Nucleated RBC % 0, Sodium 141, Potassium 3.7, Chloride 112 H, Carbon Dioxide 20.5 L, Anion Gap 8, BUN 12, Creatinine 1.48 H, Estim Creat Clear Calc 54.62, Est GFR (MDRD) Non-Af 50 L, BUN/Creatinine Ratio 8.4 L, Glucose 118 H, Calcium 7.9 02/27/25 0952 Cosigner Signature (if applicable): CC: ~ Signed [facility]04-12-2025 Progress note Author Los Romero [facility] Note Date/Time February 27, 2025 2:4 6pm [facility] Medical Records Department [address] [place] [address] Progress Note - Urology 02/26/25902 MR#: [id number] Acct: [id number] Name: GIOHOLLIE Rep #:[id number] : 1950 74 From: Los Romero MD PCP: Dr. Erwin Garcia MD Status:A DM MARYCHUY Location: FL3 [id number] Subjective Subjective s/p right nephro U doing well d/c osborn home after lunch Objective Data Objective Data Vital Signs: Vital Signs Temp Pulse Resp BP Pulse Ox O2 Del Method O2 Flow Rate 97.7 F L 66 16 105/50 L 93 Room Air 2 02/26/25 06:00 02/26/25 06:00 02/26/25 06:00 02/26/25 06:00 02/26/25 06:00 02/26/25 06:00 02/25/25 15:29 Oxygen Flow Rate (L/min) 2 Oxygen Delivery Method Room Air Weight: 104.5 kg Body Mass Index (BMI) 33.0 Intake & Output: Intake and Output for Last 24 Hours 02/24/25 02/25/25 02/26/25 23:59 23:59 23:59 Intake Total 3670 / 3670 2081.25 / 2081.25 Output Total 2380 / 2380 1225 / 1225 Balance 1290 / 1290 856.25 / 856.25 Lab / Micro Data 02/26/25 05:40 02/26/25 05:40 Labs: Laboratory Results - last 24 hr 02/26/25 05:40: WBC 10.5, RBC 3.94 L, Hgb 11.2 L, Hct 34.0 L, MCV 86.3, MCH 28.4, MCHC 32.9, RDW Std Deviation 41.4, RDW Coeff of Mildred 13.2, Plt Count 153, MPV 11.3, Immature Gran % (Auto) 0.400, Neut % (Auto) 76.9 H, Lymph % (Auto) 11.0 L, Beaufort % (Auto) 11.4 H, Eos % (Auto) 0.1, Baso % (Auto) 0.2, Absolute Neuts (auto) 8.1 H, Absolute Lymphs (auto) 1.15, Nucleated RBC % 0, Sodium 139, Potassium 4.2, Chloride 109 H, Carbon Dioxide 20.2 L, Anion Gap 10, BUN 15, Creatinine 1.54 H, Estim Creat Clear Calc 52.50, Est GFR (MDRD) Non-Af 48 L, BUN/Creatinine Ratio 9.7 L, Glucose 144 H, Calcium 8.0 02/26/25 0903 <Electronically signed by Los Romero MD> Cosigner Signature (if applicable): CC: ~ Signed [facility] Work Phone: 1(981) 498-445304-11-2025 Consult note Author José Michael [facility] Note Date/Time February 27, 2025 2:4 6pm [facility] Medical Records Department [address] [place] [address] Anesthesia Postop Eval II 02/25/25 1111 MR#: [id number] Acct: [id number] Name: HOLLIE CULLEN Rep #:[id number] : 1950 74 From: José Michael MD PCP: Dr. Erwin Garcia MD Status:A DM MARYCHUY Y Race: C Location: [place] [address] Anesthesia Postop Eval I Sum Postop Eval Completion status Anesthesia document: Postop Eval 1 completed: Yes Anesthesia Postop Eval I Summary Anesthesia Postop Eval I Summary: Anesthesia Postop Eval I: Assessment Summary Airway patent Yes 02/25/25 10:06 DIRECTOR [email or web address] Spontaneous unlabored Yes 02/25/25 10:06 DIRECTOR [email or web address] respirations Mental status Awake,Calm 02/25/25 10:06 DIRECTOR [email or web address] nausea No 02/25/25 10:06 DIRECTOR [email or web address] Vomiting No 02/25/25 10:06 DIRECTOR [email or web address] Anesthesia Postop Eval I: Fluid Summary Crystalloid volume administer 1,600 02/25/25 10:06 DIRECTOR [email or web address] (ml) Colloids volume administered ( ml) Blood Product volume administered (ml) Total IV fluid infused 1,600 02/25/25 10:06 MARÍA Anesthesia Postop Eval I: Summary Notes Anesthesia Complication No 02/25/25 10:06 DIRECTOR [email or web address] Anesthesia Complication Comment: Post-operative progress note Anesthesia: Postop Eval II Evaluation Mental status: Awake Pain Level: 0 nausea: No Vomiting: No 02/25/25 1111 <Electronically signed by José Michael MD > Date _ José Michael MD Cosigner Signature: Date CC: ~ Signed [facility] Work Phone: 1(731) 858-707804-11-2025 Consult note Author Riley Grewal [facility] Note Date/Time February 25, 2025 10: 06am [facility] Medical Records Department [address] [place] [address] Anesthesia Postop Eval I 02/25/25 1005 MR#: [id number] Acct: [id number] Name: HOLLIE CULLEN Rep #:[id number] : 1950 74 From: Riley Grewal CRNA PCP: Dr. Erwin Garcia MD Status:A DM MARYCHUY Y Race: C Location: [place] [address] Anesthesia: Postop Eval I Current Vital Signs Temperature: 97.6 F Pulse Rate: 66 Blood Pressure: 125/71 Respiratory Rate: 16 Pulse Ox: 95 Oxygen Delivery Method: Room Air Assessment Airway patent: Yes Spontaneous unlabored respirations: Yes Mental status: Awake and Calm nausea: No Vomiting: No Anesthesia Complication: No Fluid Hydration Crystalloid volume administer (ml): 1,600 Total IV fluid infused: 1,600 Progress Note Anesthesia document: Postop Eval 1 completed: Yes 02/25/25 1006 <Electronically signed by Riley leyva CRNA> Date _ Riley Weemsignsean Signature: Date CC: ~ Signed [facility] Work Phone: 1(847) 609-317304-11-2025 Discharge summary Author Los Romero [facility] Note Date/Time February 27, 2025 2:4 6pm [facility] Medical Records Department [address] [place] [address] Instructions for Home/Discharge Instructions 02/25/25 0944 MR#: [id number] Acct: [id number] Name: HOLLIE CULLEN Rep #:[id number] : 1950 74 From: Los Romero MD PCP: Dr. Erwin Garcia MD Status:R [facility] Discharge Instructions Diet Discharge Diet: No restrictions DC O2, CPAP, BIPAP needs Home O2 Discharge instructions: No Dressing / Incision Discharge Activity: Return to Normal Activity and May Not Drive (while taking narcotic pain medications.) Dressing / Incision Call your doctor if you observe: Fever of 101 or Higher Follow Up Care Please Follow Up With: Los Romero MD When: Call [phone] for an appointment Test Results: Test results from this visit will be discussed in further detail at your follow- up appointment, if applicable. Discharge Plan Admission Primary Reason for Your Visit: Right nephro ureterectomy Attending Provider: Los Romero Primary Care Provider: Erwin Garcia Instructions Print Language: Chadian Discharge Orders/Prescriptions Prescriptions: New oxycodone 5 mg tablet 5 mg PO Q6H PRN (Reason: pain) 7 Days Qty: 14 0RF Continued omeprazole 40 mg capsule,delayed release(DR/EC) 40 mg PO QDAY Qty: 30 3RF Rx Instructions: swallow whole; do not crush, chew, dissolve, cut, break sucralfate 1 gram tablet 1 g PO QACHS Qty: 56 0RF Rx Instructions: Take an hour before meals and at bedtime multivitamin with folic acid [Thera] 1 TABLET tablet 1 tab PO DAILY simvastatin 40 mg tablet 40 mg PO QHS montelukast 10 mg tablet 10 mg PO QHS dutasteride 0.5 mg capsule 0.5 mg PO DAILY Discontinued ciprofloxacin HCl 500 mg tablet 500 mg PO .QD Referrals / Follow Up: Los Romero MD [Med Staff - Active Staff] - Erwin Garcia MD [Primary Care Provider] - Disposition Disposition (needs filled in before D/C Order can be placed): Home, Self Care 02/25/25 0944<Electronically signed by Los Romero MD>Los Romero MD CC: Dr. Erwin Garcia MD ~ Signed [facility] Work Phone: [phone]) 597-214704-11-2025 History and physical note Author Los Nick [facility] Note Date/Time February 27, 2025 2:4 6pm [facility] Medical Records Department [address] [place] [address] History & Physical Exam 02/25/25 0944 MR#: [id number] Acct: [id number] Name: HOLLIE CULLEN Rep #:[id number] : 1950 74 From: Los Romero MD PCP: Dr. Erwin Garcia MD Status:[place] [facility] Location: [place] [address] HPI - General General Date of Service: 02/25/25 Chief Complaint: Right nonfunctioning kidney HPI Narrative HOLLIE CULLEN, is a 74 M who presents removal of a large right nonfunctioning kidney that is giving him pain and problems recently with a hospital with an infection. [facility] Medical History Wears glasses Wears dentures Wears partial dentures Alcohol use Loss of consciousness Dietary restriction Gastric reflux Smoker Chronic cough Hyperlipemia Kidney disease Home Medications ?Medication ?Instructions ?Recorded ?Last Taken ?Type multivitamin with folic acid 400 1 tab PO DAILY 02/04/25 History mcg tablet (Thera) dutasteride 0.5 mg capsule 0.5 mg PO DAILY 01/31/25 Un known History montelukast 10 mg tablet 10 mg PO QHS allergies 01/3102/24/25 History simvastatin 40 mg tablet 40 mg PO QHS 01/31/25 Unknow n History omeprazole 40 mg capsule,delayed 40 mg PO QDAY #30 cap s 02/08/25 Unknown Rx release sucralfate 1 gram tablet 1 g PO QACHS #56 tabs 02/24/25 Rx oxycodone 5 mg tablet 5 mg PO Q6H PRN pain 7 days #14 02/25/25 Unknown Rx tabs Allergy/AdvReac Type Severity Reaction Status Date / Time No Known Allergies Allergy Verified 02/25/25 06:24 Family History Mother Diabetes Brother Diabetes Colon cancer Surgical History Hx of laparoscopy Status post appendectomy Social History Smoking Status: Light Smoker (<10/day) quit status: not considering quitting Vital Signs Vital Signs Vital Signs: 02/25/25 06:26 02/25/25 06:28 02/25/25 07:10 Temperature 97.3 F L 97.3 F L Temperature Source Temporal Pulse Rate 64 64 Respiratory Rate 20 H 20 H Respiratory Pattern Normal Blood Pressure 144/85 H 144/85 H Blood Pressure Mean 104 Blood Pressure Source Monitor Blood Pressure Position Semi-Fowlers Blood Pressure Location Right Arm Pulse Ox 95 95 Oxygen Delivery Method Room Air Weight Weight: 104.5 kg Body Mass Index (BMI) 33.0 02/25/25 0944 <Electronically signed by Los Romero MD> Cosigner Signature (if applicable): CC: Dr. Los Romero MD; Dr. Erwin Garcia MD~ Signed [facility] Work Phone: 1(112) [phone] Consult note [facility] Medical Records Department [address] [place] [address] Anesthesia Postop Eval I 02/25/25 1005 MR#: [id number] Acct: [id number] Name: GIOHOLLIE Rep #:[id number] : 1950 74 From: Riley Grewal CRNA PCP: Dr. Erwin Garcia MD Status:A DM MARYCHUY Y Race: C Location: [facility] Anesthesia: Postop Eval I Current Vital Signs Temperature: 97.6 F Pulse Rate: 66 Blood Pressure: 125/71 Respiratory Rate: 16 Pulse Ox: 95 Oxygen Delivery Method: Room Air Assessment Airway patent: Yes Spontaneous unlabored respirations: Yes Mental status: Awake and Calm nausea: No Vomiting: No Anesthesia Complication: No Fluid Hydration Crystalloid volume administer (ml): 1,600 Total IV fluid infused: 1,600 Progress Note Anesthesia document: Postop Eval 1 completed: Yes 02/25/25 1006 y DIRECTOR WORK> Date _ Riley Carmina DIRECTOR WORK Cosigner Signature: Date CC: ~ Signed [facility]04-11-2025 Procedure note [facility] Medical Records Department [address] [place] [address] Operative Report 02/25/25 0944 MR#: [id number] Acct: [id number] Name: HOLLIE CULLEN Rep #:[id number] : 1950 74 From: Los Romero MD PCP: Dr. Erwin Garcia MD Status:R [facility] Location: [place] [address] Operative Report (Standard) Operative Information Date of Procedure: 02/25/25 Pre-Operative Diagnosis: Right nonfunctioning kidney hydroureteronephrosis Post-Operative Diagnosis: The same Surgery/Procedure Performed: Laparoscopic robotic assisted right nephro ureterectomy pulmonary fellow: No Type of Anesthesia: General RN Documented Start/Stop Times: Operation Date: 02/25/25 07:30 Case Time Into Pre-Op 02/25/25 05:59 Out of Pre-Op 02/25/25 07:26 Anesthesia Start 02/25/25 07:33 Into Room 02/25/25 07:33 Procedure Start 02/25/25 07:58 Procedure Start Time: 07:33 Procedure Stop Time: 09:45 Select all DRAINS/GRAFTS/IMPLANTS that apply: Drains Drain details: Osborn catheter Estimated Blood Loss: 25cc Specimen collected: Yes Description of specimen(s) removed: Right nephrectomy for your ureter a specimen Description of surgery: Patient was taken back to the operative room with us with duction of anesthesia he was placed supine on the table Osborn catheter was placed he was intubated he was then transferred to full flank position and then the abdomen was shaved prepped and draped in usual fashion marked out my incision second to have a camera port right arm port left arm port a second left arm port and a air seal port suction for the hospital administrative assistant I then docked the robot we placed our instrumentsinside the abdomen and we started with the dissection and he had a extensive adhesions from prior appendectomy I did dissect thecolon off the lateral sidewall I then reflected the colon off the kidney dissecting the colon off the kidney very carefully I then identified the liver it was adherent to the kidney the kidney was super swollen with fluid EXTR extremely large make it quite difficult I then had to dissect out the the liver off the kidney completely all the way up until cephalad and then were freed up the liver offthe upper attachments allow the liver to retract off the kidney. I then dissected the colon off thekidney completely I then identified the ureter the ureter was extremely large I went into the ureter and elevated up the ureter and the kidneyI then used the fourth on the hold up the kidney and thendissected very carefully underneath the kidney until I reached the renal vein renal vein was identified 2 clips down 1 clip up and was transected and then the branching renal artery was identified 2 clips down 1 clip up and then was transected I then did not take the adrenal gland I dissected cephalad until I freed up the kidney from the liver attachments all the way up to the liver spinal ligament and then this was taken down and then we took down the kidney from the lateral sidewall working her way down then at this point we made a purse incision in thekidney then placed the suction port into the kidney made an small incision in the kidney and then dry sucked out all the fluid from the kidney we sucked out probably 900 cc of urine from the kidney and then at this point that this decompressed nicely and then I traced the ureter down as far as possible to the bladder but I did not open the bladder and then transected the ureter we try to place a clip to parse the ureter but it ureter was so large the clip would not go across the ureter. So then transected the ureter and then stitched the ureter closed with a 3-0 Vicryl to close the ureter so would prevent refluxing that at this point the kidney and ureter was placed in an Endo Catch bag the robot was undocked I then scrubbed in and assisted opened up the lower port incision site and we extracted the kidney from the lower port and extraction site. We then closed the extraction site with 1-0 Vicryl stitches interrupted we thenclosed the camera port and the air seal port and then all the ports wereremoved under visualizationminimal bleeding during the entire case 25 cc and then we closed all the subcuticular stitches with4-0 Monocryl dressings and bandages were placed the patient is currently being reversed from his anestheticand currently stable and being taken the PACU. Surgical Findings: Dilated right ureter and and kidney Complications Complications: No Admit VTE Documentation VTE Present on Admission: No VTE Mechan Device Prophylaxis: SCD's VTE Pharm Prophylaxis ordered?: No 02/25/25 0949 Cosigner Signature (if applicable): CC: Dr. Los Romero MD; Dr. Erwin Garcia MD~ Signed [facility]04-11-2025 [facility] Medical Records Department [address] [place] [address] History Physical Exam 02/25/25 0944 MR#: [id number] Acct: [id number] Name: HOLLIE CULLEN Rep #: [id number] : 1950 74 From: Los Romero MD PCP: Dr. Erwin Garcia MD Status:[facility] Location: [place] [address] HPI - General General Date of Service: 02/25/25 Chief Complaint: Right nonfunctioning kidney HPI Narrative HOLLIE CULLEN, is a 74 M who presents removal of a large right nonfunctioning kidney that is giving him pain and problems recently with a hospital with an infection. [facility] Medical History Wears glasses Wears dentures Wears partial dentures Alcohol use Loss of consciousness Dietary restriction Gastric reflux Smoker Chronic cough Hyperlipemia Kidney disease Home Medications ???Medication ???Instructions ???Recorded ???Last Taken ???Type multivitamin with folic acid 400 1 tab PO DAILY 06/12/15 02/04/25 H istory mcg tablet (Thera) dutasteride 0.5 mg capsule 0.5 mg PO DAILY 01/31/25 Unknown H istory montelukast 10 mg tablet 10 mg PO QHS allergies 01/31/25 History simvastatin 40 mg tablet 40 mg PO QHS 01/31/25 Unknown Hist ory omeprazole 40 mg capsule,delayed 40 mg PO QDAY #30 caps 02/08/25 Un known Rx release sucralfate 1 gram tablet 1 g PO QACHS #56 tabs 02/14/2509/10 Rx oxycodone 5 mg tablet 5 mg PO Q6H PRN pain 7 days #14 Unknown Rx tabs Allergy/AdvReac Type Severity Reaction Status Date / Time No Known Allergies Allergy Verified 02/25/25 06:24 Family History Mother Diabetes Brother Diabetes Colon cancer Surgical History Hx of laparoscopy Status post appendectomy Social History Smoking Status: Light Smoker (<10/day) quit status: not considering quitting Vital Signs Vital Signs Vital Signs: 02/25/25 06:26 02/25/25 06:28 02/25/25 07:10 Temperature 97.3 F L 97.3 F L Temperature Source Temporal Pulse Rate 64 64 Respiratory Rate 20 H 20 H Respiratory Pattern Normal Blood Pressure 144/85 H 144/85 H Blood Pressure Mean 104 Blood Pressure Source Monitor Blood Pressure Position Semi-Fowlers Blood Pressure Location Right Arm Pulse Ox 95 95 Oxygen Delivery Method Room Air Weight Weight: 104.5 kg Body Mass Index (BMI) 33.0 02/25/25 0944 Cosigner Signature (if applicable): CC: Dr. Los Romero MD; Dr. Erwin Garcia MD [facility]04-11-2025 Consult note Author José Michael [facility] Note Date/Time February 27, 2025 2:4 6pm [facility] Medical Records Department [address] [place] [address] Pre-Anesthesia Evaluation 02/25/25 0710 MR#: [id number] Acct: [id number] Name: HOLLIE CULLEN Rep #:[id number] : 1950 74 From: José Michael MD PCP: Dr. Erwin Garcia MD Status:R EG WAC Y Race: C Location: [place] [address] ASA Classification* ASA Classification ASA Classification: 2 Assessment & Plan Anesthesia* Anesthesia Assessment Anesthesia Assessment: Discussed sedation and/or anesthesia options, risks, benefits, and alternatives with patient/parents/legal guardian/POA. Questions invited. The patient/parents/legal guardian/POA seems to understand and agrees to proceedwith anesthesia plan. Reviewed the physical assessment, medical history, allergy history and patient home medications list prior to surgery/procedure/anesthetic and documented any changes. Performed airway and anesthesia risk assessments. Anesthesia Type Anesthesia Type: General Anesthesia Focused Assessment* Temperature: 97.3 F Pulse Rate: 64 Blood Pressure: 144/85 Respiratory Rate: 20 Pulse Ox: 95 Airway Assessment Mouth opens: >3 cm Mallampati Score: II Focused Labs Anesthesia Preop lab: CBC WBC 7.6 K/mm3 (4.4-11.0) 01/31/25 10:55 01/31/25 RBC 5.17 M/mm3 (4.6-6.2) 01/31/25 10:55 01/31/25 Hgb 14.7 g/dL (13.0-16.5) 01/31/25 10:55 01/31/25 Hct 43.8 % (40-54) 01/31/25 10:55 01/31/25 Plt Count 188 K/mm3 (150-450) 01/31/25 10:55 01/31/25 CHEMISTRY Potassium 4.5 mmol/L (3.3-5.1) 01/31/25 10:55 01/31/25 Sodium 138 mmol/L (133-145) 01/31/25 10:55 01/31/25 BUN 19 mg/dL (4-19) 01/31/25 10:55 01/31/25 Creatinine 1.42 mg/dL (0.70-1.20) H 01/31/25 10:55 Glucose 116 mg/dL (70-99) H 01/31/25 10:55 01/31/25 COAG Pre-Assessment Diagnosis/Proposed Procedure Planned Operative Procedure(s): (R) Laparoscopic, Robotic, Nephrectomy, Ureterectomy Anesthesia History 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 When Was Last Pacemaker Check QUESTION #4 FULL TEXT: You/Your Family Experience fever (hyperthermia) with Anesthesia Last Oral Intake Last Oral intake: Last Oral Intake NPO since 22:00 02/25/25 06:26 Meds taken in AM with sips of water? 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 Has anyone observed you stop No 02/11/25 13:33 breathing during sleep? STOP Results Negative 02/11/25 13:33 QUESTION #5 FULL TEXT : Do you snore loudly (louder than talking or can be heard through closed doors)? 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 Specify any problems Hx of Preganancy in last 3 N/A 02/11/25 13:33 Months Nurse Filling Out Transfusion JZOLLINGE 02/11/25 13:33 & Questions: Date: 02/11/25 02/11/25 13:33 Time: 13:35 02/11/25 13:33 Patient unable to answer at this time (ie. 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: /Reproductive Hx- hop farm worker Hx Now No 02/11/25 13:33 Gestational Age (in weeks): EDC: Hx Hx Para Hx Section SAB No 02/11/25 13:33 Active Medications Active Medications: Current Medications Generic Name Dose Route Start Last Admin Trade Name Freq PRN Reason Stop Dose Admin Cefazolin Sodium 2 gm/ N/A 20 mls @ 400 mls/hr 04/11/25 07:30 IV 02/25/25 07:32 X1 ONE Sodium Chloride 1,000 mls @ 15 mls/hr 02/25/25 06:00 02/25/25 06:42 IV 15 mls/hr .Q48H MARVIN Administration PFSH Medical History Wears glasses Wears dentures Wears partial dentures Alcohol use Loss of consciousness Dietary restriction Gastric reflux Smoker Chronic cough Hyperlipemia Kidney disease Home Medications ?Medication ?Instructions ?Recorded ?Last Taken ?Type multivitamin with folic acid 400 1 tab PO DAILY 02/04/25 History mcg tablet (Thera) Held on 02/11/25. Instructions: WHILE TAKING CIPRO dutasteride 0.5 mg capsule 0.5 mg PO DAILY 01/31/25 Un known History montelukast 10 mg tablet 10 mg PO QHS allergies 01/3102/24/25 History simvastatin 40 mg tablet 40 mg PO QHS 01/31/25 Unknow n History omeprazole 40 mg capsule,delayed 40 mg PO QDAY #30 cap s 02/08/25 Unknown Rx release ciprofloxacin HCl 500 mg tablet 500 mg PO .QD 02/11/25 02/24/25 History sucralfate 1 gram tablet 1 g PO QACHS #56 tabs 02/24/25 Rx Allergy/AdvReac Type Severity Reaction Status Date / Time No Known Allergies Allergy Verified 02/25/25 06:24 Family History Mother Diabetes Brother Diabetes Colon cancer Surgical History Hx of laparoscopy Status post appendectomy Social History Smoking Status: Light Smoker (<10/day) quit status: not considering quitting Review of Systems (Anesthesia) ROS Narrative System reviewed and no additional complaints, except as documented. 02/25/25 0710 <Electronically signed by José Michael MD > Date _ José Michael MD Cosigner Signature: Date CC: ~ Signed [facility] Work Phone: 1(904) 513-579003-24-2025 Evaluation note* Diagnosis Onset Date Resolution Status Admit Date Bloating symptom acute February 072024 9:25am Gallstones acute February 07 9:25am Kidney atrophy acute January 9:25am Bloating symptom acute February 142024 1:33pm Gallstones acute February 14 1:33pm Kidney atrophy acute January 1:33pm [facility] Work Phone: 1(503) 483-104903-17-2025 Discharge summary [facility] Medical Records Department [address] [place] [address] Emergency Department Summary 01/31/25 MR#: [id number] Acct: [id number] Name: HOLLIE CULLEN Rep #:[id number] : 1950 74 From: Rashi Shaikh PCP: Dr. Erwin Garcia MD Status:R ER Location: ED ADDENDUM by Dr. Tan Mcgarry DO on 01/31/25 at [address] Romero, he will follow-up with the patient in the office. 01/31/251751 Cosigner Signature (if applicable): cc: Dr. Erwin Garcia MD ~* Signed ADDENDUM by Dr. Tan Mcgarry DO on 01/31/25 at 1744 Took over care pending surgical disposition. I received a call from Dr. Richmond, she compared CT imagings for his right renal cyst and hydronephrosis she states significantly more hydro than previous. Patient presenting with bloating. She was consulted for gallbladder concerns. Clinically no concerns for cholecystitis. She recommended a PPI which was written to his pharmacy and follow-up with her in 1 week. Patient being treated for a UTI. With hydronephrosis kidney function more improved thanhis previous. He has no back pain. He reports has seen Dr. Romero In the past for this was told if is not giving her problems to leave it alone. With the enlargement surgery request I relayed to urology the changes and follow-up. Page out to urology was made for discussion. 01/31/25 1744 Cosigner Signature (if applicable): cc: Dr. Erwin Garcia MD ~* Signed ADDENDUM by Dr. Rashi Lee DO on 01/31/25 at 1637 Prior to leaving the emergency department able to talk to the general surgeon. Spoke to Dr. Richmond who recommended against acute surgical invention. She noted she would like to compare prior CT to assess the patient's abnormalities. He is awaiting this reassessment by Dr. Sybil cao. I did write the patient a PPI as well as ciprofloxacin for urinary inflammation and sent urine for culture in the meantime. He is awaiting final general surgery imaging review and final discharge per afternoon/evening physician. 01/31/25 1637 Cosigner Signature (if applicable): cc: Dr. Erwin Garcia MD ~* Signed HPI History of Present Illness Chief Complaint: Abd Pain PFSH [facility] Medical History (Updated 01/31/25 @ 11:07 by Monica Huertas) Hyperlipemia Kidney disease Home Medications ?Medication ?Instructions ?Recorded ?Last Taken ?Type multivitamin with folic acid 400 1 tab PO DAILY Unknown History mcg tablet (Thera) dutasteride 0.5 mg capsule 0.5 mg PO DAILY 01/31/25 Un known History montelukast 10 mg tablet 10 mg PO QHS allergies 01/31 Unknown History simvastatin 40 mg tablet 40 mg PO QHS 01/31/25 Unknow n History Allergy/AdvReac Type Severity Reaction Status Date / Time No Known Allergies Allergy Verified 01/31/25 10:07 Social History Smoking Status: Light Smoker (<10/day) EXAM Physical Exam Const Vital Signs: 01/31/25 10:04 01/31/25 12:04 01/31/25 14:37 Temperature 98.1 F Temperature Source Temporal Pulse Rate 92 65 Respiratory Rate 15 Blood Pressure 151/135 H 114/72 128/77 H Blood Pressure Mean 140 86 94 Pulse Ox 97 95 Oxygen Delivery Method Room Air Room Air MDM MDM MDM Narrative Medical decision making narrative: HISTORY OF PRESENT ILLNESS: 74-year-old male history of twisted bowel presents with abdominal pain. Notes he feels like he has not in the stomach every evening. Notes pain after eats a snack in the evening. Notes approximate 1 hour after eating he has pain in his right side of his abdomen. No vomiting. Notes he feels distended. REVIEW OF SYSTEMS: Pertinent positives: Abdominal pain Pertinent negatives: Vomiting PHYSICAL EXAM: Nursing triage notes reviewed, Vital signs reviewed Constitutional: please see mdm HENT: MMM Eyes: Pupils equal round and reactive to light, Extraocular muscles intact Neck: No stridor, no JVD, full neck ROM Lungs: Clear to auscultation, No wheezing or rales. No increased work of breathing, no conversational dyspnea, no accessory muscle use, no nasal flaring. No respiratory distress noted Heart: Regular rate and rhythm, No murmurs, No rubs and No gallops, 2+ distal pulses (radial, femoral, posterior tibial) in all extremities Abdomen: Soft, right-sided tenderness, no Palomino sign, rigidity, rebound or guarding, no obvious peritoneal signs, no palpable pulsatile abdominal masses, no auscultated abdominal bruit : No CVAT Extremities: No edema Neuro: No new focal neurological deficits, cranial nerves II through XII intact,5/5 strength in allpresent extremities. Intact sensation to light touch in all present extremities, 2+ reflexes bilateral patella tendons. Skin: No rash or lesions noted MEDICAL DECISION MAKING: Chief Complaint: Abdominal pain External records reviewed: Reviewed prior ED visits. Reviewed CT scan from 2007 which showed right ureteral dilatation. Dilatation of the right ureter at the superior aspect of the pelvis Factors affecting care: History of volvulus, congenital atrophy of the kidney Social determinants of health: none History obtained from others: none Consults: none [facility] Narrative: The patient was initially hypertensive with a blood pressure 151/135 otherwise afebrile nontoxic-appearing. Abdominal exam overall benign slightly distended with right upper quadrant/right sided TTP but negative Palomino sign. I considered the following differential diagnosis: AAA, small bowel obstruction, abdominal perforation, appendicitis, pancreatitis, hepatobiliary pathology (acute cholecystitis), mesenteric ischemia, pathology (ie nephrolithiasis, pyelonephritis). ALL IMAGES (IF OBTAINED) HAVE BEEN PERSONALLY REVIEWED AND INTERPRETED BY MYSELF. CBC without leukocytosis, severe anemia, no thrombocytopenia. BMP with improved kidney function, no significant electrolyte abnormalities LFTs show no evidence of hepatobiliary pathology. Lipase is wnl indicating no pancreatic inflammation. Urinalysis with evidence of urinary inflammation and bacteria concerning for possible UTI. Will send urine for culture. CT scan abdomen pelvis showed no evidence of obvious perforation, obstruction but did show evidenceof gallbladder wall thickening pericholecystic fluid concerning for acute cholecystitis. Given the read I obtained a right upper quadrant ultrasound. Right quad ultrasound was consistent with acute cholecystitis as well. Discussed with surgery. Discussed with Dr. Richmond. Who was concerned about the patient's kidney findings. Discussed with patient underwent further chart review which showed patient has chronic kidney issues. These do not appear to be new. Dr. Richmond did come down to ED to evaluate the patient. Awaiting herfinal recommendations. 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 The patient and/or family, caregivers express understanding. The patient and/orfamily, caregivers agrees with the plan. Shared decision making: I will have a discussion with the patient and or visitors regarding risk/benefits of further testing or admission. They will be made aware of of the risk/benefits inherent in this decision they will be given the opportunity to voice understanding. Total critical care time today provided was at least 0 minutes. This excludes separately billable procedures. Critical care time (if documented) is secondary to the patient having high probability ofclinically significant/life threatening deterioration in the patient's condition which required my urgent intervention. Impression: 1. Abdominal pain 2. Gallbladder wall thickening 3. Pericholecystic fluid Dispo: Pending general surgery recommendations. Signed out to afternoon/eveningphysician pending general surgery recommendations This note was generated with [employer] dictation software. It may contain incorrectwords, spelling, and punctuation that were not noted in review of the chart prior to signing. Lab Data Labs: Laboratory Results - last 24 hr 01/31/25 01/31/25 10:55 11:05 WBC 7.6 RBC 5.17 Hgb 14.7 Hct 43.8 MCV 84.7 MCH 28.4 MCHC 33.6 RDW Std Deviation 41.7 RDW Coeff of Mildred 13.4 Plt Count 188 MPV 10.3 Immature Gran % (Auto) 0.100 Neut % (Auto) 70.8 H Lymph % (Auto) 16.0 L [place] % (Auto) 10.8 H Eos % (Auto) 1.8 Baso % (Auto) 0.5 Absolute Neuts (auto) 5.4 Absolute Lymphs (auto) 1.21 Nucleated RBC % 0 Sodium 138 Potassium 4.5 Chloride 105 Carbon Dioxide 26.2 Anion Gap 7 BUN 19 Creatinine 1.42 H Estim Creat Clear Calc 57.85 Est GFR (MDRD) Non-Af 53 L BUN/Creatinine Ratio 13.1 Glucose 116 H Calcium 9.3 Total Bilirubin 0.27 AST 20 ALT 22 Alkaline Phosphatase 80 Total Protein 6.6 Albumin 4.0 Globulin 2.6 Albumin/Globulin Ratio 1.5 Lipase 31 Urine Color Yellow Urine Clarity Cloudy Urine pH 6.0 Ur Specific [place] 1.015 Urine Protein 15 H Urine Glucose (UA) Normal Urine Ketones Negative Urine Occult Blood 25 H Urine Nitrite Negative Urine Bilirubin Negative Urine Urobilinogen Normal Ur Leukocyte Esterase 500 H Urine RBC 5-10 SEEN Urine WBC 50-100 SEEN Ur Squamous Epith Cells 0-5 SEEN Urine Bacteria 3+ Urine Mucus 0 SEEN Radiography Diagnostic Testing: Clinical Impression(s) from Imaging Studies Abdomen/Pelvis CT 01/31/25 10:37 IMPRESSION: Multiple small gallstones more prominent and neck of the gallbladder with mild thickening of the gallbladder wall and pericholecystic fluid. Multiple cystic structures are seen in the right kidney with the minimal residual parenchymal tissue suggestive of chronic marked degree of right hydronephrosis with right hydroureter down to the level of the right ureterovesicaljunction where there is irregular thickening and enlargement of the prostate more prominent on the rightside. Findings suggestive of possible polypoid lesion at the base of the bladder more prominent on the right side. Diffuse bladder wall thickening. Reading Location: [facility] Abdomen Ultrasound 01/31/25 13:15 IMPRESSION: Sludge and gallstones seen within the gallbladder lumen with evidence of gallbladder wall thickening and pericholecystic fluid. Acute cholecystitis should be ruled out. Abnormal appearance of the right kidney as described. Fatty infiltration of the liver. Hepatomegaly. Reading Location: [facility] Discharge Plan Triage Chief Complaint: Abd Pain ED Provider: Rashi Lee Dx/Rx/DC Orders Prescriptions: No Action multivitamin with folic acid [Thera] 1 TABLET tablet 1 tab PO DAILY simvastatin 40 mg tablet 40 mg PO QHS montelukast 10 mg tablet 10 mg PO QHS dutasteride 0.5 mg capsule 0.5 mg PO DAILY Primary Care Provider: Erwin Garcia Referrals: Erwin Garcia MD [Primary Care Provider] - Print Language: Chadian What to do if you have Problems For any increased pain, shortness of breath, bleeding, nausea or vomiting, chestpain, or any unexpected problems, contact your Primary Care Provider. Call [facility] ([phone]) or report tothe closest Emergency Room. Call 911 if necessary. 01/31/25 1621 Cosigner Signature (if applicable): CC: Dr. Erwin Garcia MD ~ Signed [facility]03-17-2025 Consult note [facility] Medical Records Department [address] [place] [address] Consultation - Surgical 01/31/25 1647 MR#: [id number] Acct: [id number] Name: HOLLIE CULLEN Rep #:[id number] : 1950 74 From: Elana Richmond MD PCP: Dr. Erwin Garcia MD Status:R EG ER Location: ED Assessment & Plan Assessment/Plan (1) Gallstones: (2) Bloating symptom: (3) Kidney atrophy: PLAN: Plan Pt symptoms were bloating and fit with gastritic etiology more than gallstones. Patient CT abdomen pelvis does show questionable haziness around the gallbladderhowever patient's white blood count is normal, no change in LFTs patient does have some gallstones. Patient has been able to eat fatty greasy foods without any issues and then usually his issues have come on at night after laying down. Describes as a bloating sensation denies any real pain. Will have patient startomeprazole 40 mg p.o. daily as well as Pepcid first 2 to 3 days and have him follow-up in office in 1 week with me. Also advised low-fat diet until follow-up. Patient is are agreeable to plan. Patient CT abdomen pelvis also shows severe hydronephrosis. Patient states he has an atrophic rightkidney that is about the size of a walnut. However did not have previous imaging here unsure why hewould have severe hydronephrosis ofthe ureter and have a smaller bladder if there is not some sort of blockage. Patient's UA also appears to have a UTI. Urine culture was ordered by the ER doctor physician. Recommend getting previous CT a/p to compare the right kidney.?Addendum: CT abdomen pelvis 2016 patient did have hydronephrosis at thattime as well not quite as severe. Deferred to urology. Elana Richmond M.D. Pager: [phone] [facility] [address] [place] [address], Outpatient [facility]ilion, [address] [place] [address] Office: [phone] HPI Consult Data Date of Consult: 01/31/25 HPI Narrative HPI Narrative: HOLLIE CULLEN, is a 74 M who presents to the ER due to abdominal bloating. Patient states thishappened 2 or 3 times last happened last night after eating some trail bologna and cheese states has been an hour after having a snack before bed and laying down they had abdominal bloating could notget comfortable. Patient had this previously at night as well. Patient has been able to eat peanutsand other fatty foods without any issues previously-even forsupper last night. Patient denies any nausea or vomiting. Patient does have history of atrophy of the right kidney and states it was the size of a walnut noprevious abdominal imaging here. Patient currently denies any abdominal pain stateshe did have some dysuria after he gave a urine sample in the ER but then went again and did not have any. Patient has a normal white blood cell count at7.6, no shift, normal LFTs, creatinine 1.42, patient's UA does have 500 leukoesterase, 0-5 squamous and 3+ bacteria. Patient states that he had seen previously seen Dr. Romero for the hydronephrosis and there was nothing to do atthat time. [facility] Medical History (Updated 01/31/25 @ 17:[address] Elana Richmond MD) Hyperlipemia Kidney disease Home Medications ?Medication ?Instructions ?Recorded ?Last Taken ?Type multivitamin with folic acid 400 1 tab PO DAILY Unknown History mcg tablet (Thera) ciprofloxacin HCl 500 mg tablet 500 mg PO BID 7 days # 14 TABLETS 01/31/25 Unknown Rx dutasteride 0.5 mg capsule 0.5 mg PO DAILY 01/31/25 Un known History montelukast 10 mg tablet 10 mg PO QHS allergies 01/31 Unknown History omeprazole 40 mg capsule,delayed 40 mg PO DAILY #30 ca ps 01/31/25 Unknown Rx release simvastatin 40 mg tablet 40 mg PO QHS 01/31/25 Unknow n History Allergy/AdvReac Type Severity Reaction Status Date / Time No Known Allergies Allergy Verified 01/31/25 10:07 Surgical History (Updated 01/31/25 @ 16:[address] Elana Richmond MD) Hx of laparoscopy Status post appendectomy Social History Smoking Status: Light Smoker (<10/day) ROS Constitutional Constitutional: Reports anorexia ENT HEENT: Denies dysphagia Cardiovascular Cardiovascular: Denies chest pain Respiratory/Chest Respiratory/Chest: Denies cough Gastrointestinal Gastrointestinal: Reports bloating; Denies abdominal pain, constipation, diarrhea, nausea or vomiting Genitourinary Genitourinary: Reports dysuria Integumentary Integumentary: Denies jaundice Psychiatric Psychiatric: Denies anxiety or depression Endocrine Endocrinology: Denies palpitations Hematologic/Lymphatic Hematologic/Lymphatic: Denies easy bleeding Physical Exam Const alert, oriented x3 and no apparent distress HEENT normocephalic and head/scalp atraumatic Resp normal respiratory effort Cardio regular rate GI soft to palpation and non-tender; Negative for non-distended Palpation: Negative for guarding Extremity no clubbing, cyanosis or edema Skin no rashes or lesions noted Neuro CN's II-XII intact bilaterally Psych mental status grossly normal Lab / Micro Data 01/31/25 10:55 01/31/25 10:55 Labs: Laboratory Results - last 24 hr 01/31/25 10:55: WBC 7.6, RBC 5.17, Hgb 14.7, Hct 43.8, MCV 84.7, MCH 28.4, MCHC 33.6, RDW Std Deviation 41.7, RDW Coeff of Mildred 13.4, Plt Count 188, MPV 10.3, Immature Gran % (Auto) 0.100, Neut % (Auto) 70.8 H, Lymph % (Auto) 16.0 L, Beaufort % (Auto) 10.8 H, Eos % (Auto) 1.8, Baso % (Auto) 0.5, Absolute Neuts (auto) 5.4,Absolute Lymphs (auto) 1.21, Nucleated RBC % 0, Sodium 138, Potassium 4.5, Chloride 105, Carbon Dioxide 26.2, Anion Gap 7, BUN 19, Creatinine 1.42 H, EstimCreat Clear Calc 57.85, Est GFR (MDRD) Non-Af 53 L, BUN/Creatinine Ratio 13.1, Glucose 116 H, Calcium 9.3, Total Bilirubin 0.27, AST 20, ALT 22, Alkaline Phosphatase 80, Total Protein 6.6, Albumin 4.0, Globulin 2.6, Albumin/Globulin Ratio 1.5, Lipase 31 01/31/25 11:05: Urine Color Yellow, Urine Clarity Cloudy, Urine pH 6.0, Ur Specific Keenes 1.015, Urine Protein 15 H, Urine Glucose (UA) Normal, Urine Ketones Negative, Urine Occult Blood 25 H, Urine Nitrite Negative, Urine Bilirubin Negative, Urine Urobilinogen Normal, Ur Leukocyte Esterase 500 H, Urine RBC 5-10 SEEN, Urine WBC 50-100 SEEN, Ur Squamous Epith Cells 0-5 SEEN, Urine Bacteria 3+, Urine Mucus 0 SEEN Imaging Radiology Impression Abdomen/Pelvis CT 01/31/25 10:37 IMPRESSION: Multiple small gallstones more prominent and neck of the gallbladder with mild thickening of the gallbladder wall and pericholecystic fluid. Multiple cystic structures are seen in the right kidney with the minimal residual parenchymal tissue suggestive of chronic marked degree of right hydronephrosis with right hydroureter down to the level of the right ureterovesicaljunction where there is irregular thickening and enlargement of the prostate more prominent on the rightside. Findings suggestive of possible polypoid lesion at the base of the bladder more prominent on the right side. Diffuse bladder wall thickening. [facility] 01/31/25 13:15 IMPRESSION: Sludge and gallstones seen within the gallbladder lumen with evidence of gallbladder wall thickening and pericholecystic fluid. Acute cholecystitis should be ruled out. Abnormal appearance of the right kidney as described. Fatty infiltration of the liver. Hepatomegaly. Reading Location: [facility] Charges/Coding Multi Select Codes Visit Charges Office Visit/Consults: 35549 OP Consult L4 01/31/25 1717 Cosigner Signature (if applicable): CC: Dr. Erwin Garcia MD~ Signed [facility]03-17-2025 Radiology Diagnostic study note [facility] Imaging Services [address] [place], [place] [address] Abdomen Limited MR#: [id number] Acct: [id number] Name: HOLLIE CULLEN Rep #: [id number] : 1950 M 74 From: Ever Logan MD PCP: Dr. Erwin Garcia MD Status: R EG ER Study:Abdomen Limited Date of Exam: 01/15 06/10 Exam# [id number] Ordering Dr: Miah Lee DO PROCEDURE: ABDOMEN LIMITED REASON FOR EXAM: PERICHOLECYSTIC FLUID R/O ACUTE CHOLECYSTITIS COMPARISON: Comparison is made with prior CT scan done earlier in the day. FINDINGS: Liver: Diffusely echogenic suggesting fatty infiltration. Hepatomegaly. The liver measures 19.7 cm. Gallbladder: Sludge and multiple small gallstones are seen within the gallbladder lumen. The gallbladder wall is thickened measuring 4.6 mm. Small amount of pericholecystic fluid. Common bile duct: Normal measuring it measures 4.4 mm.. Pancreas: Visualized portions are sonographically unremarkable. Abnormal appearance of the right kidney with minimal renal parenchyma. Multi cystic changes are seen suggestive of either chronic severe hydronephrosis versus multiple cysts. US/Abdomen Limited IMPRESSION: Sludge and gallstones seen within the gallbladder lumen with evidence of gallbladder wall thickening and pericholecystic fluid. Acute cholecystitis should be ruled out. Abnormal appearance of the right kidney as described. Fatty infiltration of the liver. Hepatomegaly. Reading Location: [facility]1 CC: Dr. Rashi Lee DO; Dr. Erwin Garcia MD ~ [employer] Supervisor: Signed [facility]03-17-2025 Discharge summary Author Rashi Lee [facility] Note Date/Time January 31, 2025 5:5 2pm [facility] Medical Records Department [address] [place] [address] Emergency Department Summary 01/31/25 MR#: [id number] Acct: [id number] Name: HOLLIE CULLEN Rep #:[id number] : 1950 74 From: Rashi Shaikh PCP: Dr. Erwin Garcia MD Status:R EG ER Location: ED ADDENDUM by Dr. Tan Mcgarry DO on 01/31/25 at [address] Romero, he will follow-up with the patient in the office. 01/31/251751<Electronically signed by Tan Patel> Cosigner Signature (if applicable): cc: Dr. Erwin Garcia MD ~* Signed ADDENDUM by Dr. Tan Mcgarry DO on 01/31/25 at 1744 Took over care pending surgical disposition. I received a call from Dr. Richmond, she compared CT imagings for his right renal cyst and hydronephrosis she states significantly more hydro than previous. Patient presenting with bloating. She was consulted for gallbladder concerns. Clinically no concerns for cholecystitis. She recommended a PPI which was written to his pharmacy and follow-up with her in 1 week. Patient being treated for a UTI. With hydronephrosis kidney function more improved than his previous. He has no back pain. He reports has seen Dr. Romero In the past for this was told if is not giving her problems to leave it alone. With the enlargement surgery request I relayed to urology the changes and follow-up. Page out to urology was made for discussion. 01/31/251743<Electronically signed by Tan Patel> Cosigner Signature (if applicable): cc: Dr. Erwin Garcia MD ~* Signed ADDENDUM by Dr. Rashi Lee DO on 01/31/25 at 1637 Prior to leaving the emergency department able to talk to the general surgeon. Spoke to Dr. Richmond who recommended against acute surgical invention. She noted she would like to compare prior CT to assess the patient's abnormalities. He is awaiting this reassessment by Dr. Sybil cao. I did write the patient a PPI as well as ciprofloxacin for urinary inflammation and sent urine for culture in the meantime. He is awaiting final general surgery imaging review and final discharge per afternoon/evening physician. 01/31/25 1637<Electronically signed by Rashi Lee DO> Cosigner Signature (if applicable): cc: Dr. Erwin Garcia MD ~* Signed HPI History of Present Illness Chief Complaint: Abd Pain [facility] Medical History (Updated 01/31/25 @ 11:07 by Monica Huertas) Hyperlipemia Kidney disease Home Medications ?Medication ?Instructions ?Recorded ?Last Taken ?Type multivitamin with folic acid 400 1 tab PO DAILY Unknown History mcg tablet (Thera) dutasteride 0.5 mg capsule 0.5 mg PO DAILY 01/31/25 Un known History montelukast 10 mg tablet 10 mg PO QHS allergies 01/31 Unknown History simvastatin 40 mg tablet 40 mg PO QHS 01/31/25 Unknow n History Allergy/AdvReac Type Severity Reaction Status Date / Time No Known Allergies Allergy Verified 01/31/25 10:07 Social History Smoking Status: Light Smoker (<10/day) EXAM Physical Exam Const Vital Signs: 01/31/25 10:04 01/31/25 12:04 01/31/25 14:37 Temperature 98.1 F Temperature Source Temporal Pulse Rate 92 65 Respiratory Rate 15 Blood Pressure 151/135 H 114/72 128/77 H Blood Pressure Mean 140 86 94 Pulse Ox 97 95 Oxygen Delivery Method Room Air Room Air MDM MDM MDM Narrative Medical decision making narrative: HISTORY OF PRESENT ILLNESS: 74-year-old male history of twisted bowel presents with abdominal pain. Notes he feels like he has not in the stomach every evening. Notes pain after eats a snack in the evening. Notes approximate 1 hour after eating he has pain in his right side of his abdomen. No vomiting. Notes he feels distended. REVIEW OF SYSTEMS: Pertinent positives: Abdominal pain Pertinent negatives: Vomiting PHYSICAL EXAM: Nursing triage notes reviewed, Vital signs reviewed Constitutional: please see mdm HENT: MMM Eyes: Pupils equal round and reactive to light, Extraocular muscles intact Neck: No stridor, no JVD, full neck ROM Lungs: Clear to auscultation, No wheezing or rales. No increased work of breathing, no conversational dyspnea, no accessory muscle use, no nasal flaring. No respiratory distress noted Heart: Regular rate and rhythm, No murmurs, No rubs and No gallops, 2+ distal pulses (radial, femoral, posterior tibial) in all extremities Abdomen: Soft, right-sided tenderness, no Palomino sign, rigidity, rebound or guarding, no obvious peritoneal signs, no palpable pulsatile abdominal masses, no auscultated abdominal bruit : No CVAT Extremities: No edema Neuro: No new focal neurological deficits, cranial nerves II through XII intact,5/5 strength in all present extremities. Intact sensation to light touch in all present extremities, 2+ reflexes bilateral patella tendons. Skin: No rash or lesions noted MEDICAL DECISION MAKING: Chief Complaint: Abdominal pain External records reviewed: Reviewed prior ED visits. Reviewed CT scan from 2007 which showed right ureteral dilatation. Dilatation of the right ureter at the superior aspect of the pelvis Factors affecting care: History of volvulus, congenital atrophy of the kidney Social determinants of health: none History obtained from others: none Consults: none MDM Narrative: The patient was initially hypertensive with a blood pressure 151/135 otherwise afebrile nontoxic-appearing. Abdominal exam overall benign slightly distended with right upper quadrant/right sided TTP but negative Palomino sign. I considered the following differential diagnosis: AAA, small bowel obstruction, abdominal perforation, appendicitis, pancreatitis, hepatobiliary pathology (acute cholecystitis), mesenteric ischemia, pathology (ie nephrolithiasis, pyelonephritis). ALL IMAGES (IF OBTAINED) HAVE BEEN PERSONALLY REVIEWED AND INTERPRETED BY MYSELF. CBC without leukocytosis, severe anemia, no thrombocytopenia. BMP with improved kidney function, no significant electrolyte abnormalities LFTs show no evidence of hepatobiliary pathology. Lipase is wnl indicating no pancreatic inflammation. Urinalysis with evidence of urinary inflammation and bacteria concerning for possible UTI. Will send urine for culture. CT scan abdomen pelvis showed no evidence of obvious perforation, obstruction but did show evidence of gallbladder wall thickening pericholecystic fluid concerning for acute cholecystitis. Given the read I obtained a right upper quadrant ultrasound. Right quad ultrasound was consistent with acute cholecystitis as well. Discussed with surgery. Discussed with Dr. Richmond. Who was concerned about the patient's kidney findings. Discussed with patient underwent further chart review which showed patient has chronic kidney issues. These do not appear to be new. Dr. Richmond did come down to ED to evaluate the patient. Awaiting herfinal recommendations. 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 The patient and/or family, caregivers express understanding. The patient and/orfamily, caregivers agrees with the plan. Shared decision making: I will have a discussion with the patient and or visitors regarding risk/benefits of further testing or admission. They will be made aware of of the risk/benefits inherent in this decision they will be given the opportunity to voice understanding. Total critical care time today provided was at least 0 minutes. This excludes separately billable procedures. Critical care time (if documented) is secondary to the patient having high probability of clinically significant/life threatening deterioration in the patient's condition which required my urgent intervention. Impression: 1. Abdominal pain 2. Gallbladder wall thickening 3. Pericholecystic fluid Dispo: Pending general surgery recommendations. Signed out to afternoon/eveningphysician pending general surgery recommendations This note was generated with [employer] dictation software. It may contain incorrectwords, spelling, and punctuation that were not noted in review of the chart prior to signing. Lab Data Labs: Laboratory Results - last 24 hr 01/31/25 01/31/25 10:55 11:05 WBC 7.6 RBC 5.17 Hgb 14.7 Hct 43.8 MCV 84.7 MCH 28.4 MCHC 33.6 RDW Std Deviation 41.7 RDW Coeff of Mildred 13.4 Plt Count 188 MPV 10.3 Immature Gran % (Auto) 0.100 Neut % (Auto) 70.8 H Lymph % (Auto) 16.0 L Beaufort % (Auto) 10.8 H Eos % (Auto) 1.8 Baso % (Auto) 0.5 Absolute Neuts (auto) 5.4 Absolute Lymphs (auto) 1.21 Nucleated RBC % 0 Sodium 138 Potassium 4.5 Chloride 105 Carbon Dioxide 26.2 Anion Gap 7 BUN 19 Creatinine 1.42 H Estim Creat Clear Calc 57.85 Est GFR (MDRD) Non-Af 53 L BUN/Creatinine Ratio 13.1 Glucose 116 H Calcium 9.3 Total Bilirubin 0.27 AST 20 ALT 22 Alkaline Phosphatase 80 Total Protein 6.6 Albumin 4.0 Globulin 2.6 Albumin/Globulin Ratio 1.5 Lipase 31 Urine Color Yellow Urine Clarity Cloudy Urine pH 6.0 Ur Specific Keenes 1.015 Urine Protein 15 H Urine Glucose (UA) Normal Urine Ketones Negative Urine Occult Blood 25 H Urine Nitrite Negative Urine Bilirubin Negative Urine Urobilinogen Normal Ur Leukocyte Esterase 500 H Urine RBC 5-10 SEEN Urine WBC 50-100 SEEN Ur Squamous Epith Cells 0-5 SEEN Urine Bacteria 3+ Urine Mucus 0 SEEN Radiography Diagnostic Testing: Clinical Impression(s) from Imaging Studies Abdomen/Pelvis CT 01/31/25 10:37 IMPRESSION: Multiple small gallstones more prominent and neck of the gallbladder with mild thickening of the gallbladder wall and pericholecystic fluid. Multiple cystic structures are seen in the right kidney with the minimal residual parenchymal tissue suggestive of chronic marked degree of right hydronephrosis with right hydroureter down to the level of the right ureterovesical junction where there is irregular thickening and enlargement of the prostate more prominent on the rightside. Findings suggestive of possible polypoid lesion at the base of the bladder more prominent on the right side. Diffuse bladder wall thickening. Reading Location: [facility] Abdomen Ultrasound 01/31/25 13:15 IMPRESSION: Sludge and gallstones seen within the gallbladder lumen with evidence of gallbladder wall thickening and pericholecystic fluid. Acute cholecystitis should be ruled out. Abnormal appearance of the right kidney as described. Fatty infiltration of the liver. Hepatomegaly. Reading Location: [facility] Discharge Plan Triage Chief Complaint: Abd Pain ED Provider: Rashi Lee Dx/Rx/DC Orders Prescriptions: No Action multivitamin with folic acid [Thera] 1 TABLET tablet 1 tab PO DAILY simvastatin 40 mg tablet 40 mg PO QHS montelukast 10 mg tablet 10 mg PO QHS dutasteride 0.5 mg capsule 0.5 mg PO DAILY Primary Care Provider: Erwin Garcia Referrals: Erwin Garcia MD [Primary Care Provider] - Print Language: Chadian What to do if you have Problems For any increased pain, shortness of breath, bleeding, nausea or vomiting, chestpain, or any unexpected problems, contact your Primary Care Provider. Call [facility] ([phone]) or report to the closest Emergency Room. Call 911 if necessary. 01/31/25 1621 <Electronically signed by Rashi Lee DO> Cosigner Signature (if applicable): CC: Dr. Erwin Garcia MD ~ Signed [facility] Work Phone: [phone] 367-676703-17-2025 Radiology Diagnostic study note [facility] Imaging Services [address] [place] [address] Abdomen/Pelvis WITH Contrast MR#: [id number] Acct: [id number] Name: HOLLIE CULLEN Rep #: [id number] : 1950 M 74 From: Ever Logan MD PCP: Dr. Erwin Garcia MD Status: R EG ER Study:Abdomen/Pelvis WITH Contrast Date of Ex am: 01/31/25 Exam# [id number] Ordering Dr: Miah Lee DO PROCEDURE: ABDOMEN/PELVIS WITH CONTRAST 01/31/2025 REASON FOR EXAM: ABDOMINAL PAIN History of prior volvulus. TECHNIQUE: Abdomen CT without and with intravenous contrast. Coronal and Sagittal reconstruction series were provided. PATIENT PREPARATION: Per protocol ORAL CONTRAST TYPE: Given. CONTRAST: Isovue-300 VOLUME: 100 mLmL Gauge IV One or more dose reduction techniques were used (e.g., Automated exposure control, adjustment of the mA and/or kV according to patient size, use of iterative reconstruction technique. RADIATION DOSE SUMMARY: CTDlvol: 15 mGy DLP: 933.41 mGycm COMPARISON: None. COMPARISON: None. FINDINGS: Lung bases: Minimal degree of increased linear markings at the lung bases suggestive of mild linearscarring. No coronary artery calcification is seen. Liver: Diffuse fatty infiltration. Gallbladder: Multiple small gallstones. Minimal thickening of the gallbladder wall with findings suggestive of small amount of pericholecystic fluid. The stones are seen in the region of the neck of the gallbladder. Spleen: Multiple calcified splenic granulomas. Pancreas: Normal size without evidence of mass surrounding inflammation or ductal dilation. Adrenals: Unremarkable. Kidneys: Multiple cystic structures are seen in the right kidney. Minimal renalparenchyma is visualized. This may represent a chronic marked degree of right hydronephrosis. There is dilatation of the rightureter down to the level of the right ureterovesical junction where there is heterogeneous enlargement of the prostateand possible polypoid mass at the base of the bladder worse on the right side. The left kidney is unremarkable. Bladder: Mild degree of diffuse bladder wall thickening. Questionable polypoid mass at the base of the bladder more prominent on the right side. Prostatic enlargement with the calcifications. Bowel: Colonic diverticulosis without diverticulitis. Appendix: The appendix is not identified. There is no inflammatory process identified in the right lower quadrant to suggest appendicitis. Lymph nodes: No suspicious lymph node enlargement. Vasculature: Mild diffuse atherosclerotic calcifications are noted. Peritoneum / Retroperitoneum: No enlarged retroperitoneal lymph nodes are seen. Bones: Degenerative changes of the spine. CT/Abdomen/Pelvis WITH Contrast IMPRESSION: Multiple small gallstones more prominent and neck of the gallbladder with mild thickening of the gallbladder wall and pericholecystic fluid. Multiple cystic structures are seen in the right kidney with the minimal residual parenchymal tissue suggestive of chronic marked degree of right hydronephrosis with right hydroureter down to the level of the right ureterovesicaljunction where there is irregular thickening and enlargement of the prostate more prominent on the rightside. Findings suggestive of possible polypoid lesion at the base of the bladder more prominent on the right side. Diffuse bladder wall thickening. Reading Location: [facility] CC: Dr. Rashi Lee DO; Dr. Erwin Garcia MD ~ [employer] Supervisor: Signed [facility]03-17-2025 Telephone encounter Note* Telephone Encounter - Wendy Espinal RN - 01/31/2025 8:14 AM EDT Protocol recommends see provider within 4 hours. Discussed with pt though that this pain feels likeit did when he had a twisted bowel. Due to that and the potential need for stat testing, pt is willing to go to ER instead. Reason for Disposition [1] MILD-MODERATE pain AND [2] constant AND [3] present > 2 hours Answer Assessment - Initial Assessment Questions 1. LOCATION: All over his abdomen. States his whole stomach is bloated and feel pressure pushing out. states his abd is larger than normal-he looks bloated. Pt has tried Gas-X, gingerale, and heating pad with no relierf. Pt states feels like he ate too much and can't go to the bathroom. Hehas been up all night. Unable to sleep because he cannot get comfortable. Pt did have a normal BM at 2 am this morning and pt states he is passing gas. 2. RADIATION: denies 3. ONSET: 11 pm last evening 4. SUDDEN: gradual but has gotten worse as the hours go on. 5. PATTERN Constant 6. SEVERITY: /10 - MILD (1-3): Doesn't interfere with normal activities, abdomen soft and not tender to touch. - MODERATE (4-7): Interferes with normal activities or awakens from sleep, abdomen tender to touch. - SEVERE (8-10): Excruciating pain, doubled over, unable to do any normal activities. 7. RECURRENT SYMPTOM: Yes had about 12-15 years ago and pt states he had a twisted bowel and ended up with surgery. 8. CAUSE: concern for the twisted bowel again. 9. RELIEVING/AGGRAVATING FACTORS: Nothing makes it better and different positions can make it worse. 10. OTHER SYMPTOMS: Denies any other symptoms. Denies nausea or vomiting, or diarrhea or constipation. Protocols used: Abdominal Pain - [id number] [facility]03-17-2025 Miscellaneous Notes* Telephone Encounter - Wendy Espinal RN - 01/31/2025 8:14 AM EDT Protocol recommends see provider within 4 hours. Discussed with pt though that this pain feels likeit did when he had a twisted bowel. Due to that and the potential need for stat testing, pt is willing to go to ER instead. Reason for Disposition [1] MILD-MODERATE pain AND [2] constant AND [3] present > 2 hours Answer Assessment - Initial Assessment Questions 1. LOCATION: All over his abdomen. States his whole stomach is bloated and feel pressure pushing out. states his abd is larger than normal-he looks bloated. Pt has tried Gas-X, gingerale, and heating pad with no relierf. Pt states feels like he ate too much and can't go to the bathroom. Hehas been up all night. Unable to sleep because he cannot get comfortable. Pt did have a normal BM at 2 am this morning and pt states he is passing gas. 2. RADIATION: denies 3. ONSET: 11 pm last evening 4. SUDDEN: gradual but has gotten worse as the hours go on. 5. PATTERN Constant 6. SEVERITY: /10 - MILD (1-3): Doesn't interfere with normal activities, abdomen soft and not tender to touch. - MODERATE (4-7): Interferes with normal activities or awakens from sleep, abdomen tender to touch. - SEVERE (8-10): Excruciating pain, doubled over, unable to do any normal activities. 7. RECURRENT SYMPTOM: Yes had about 12-15 years ago and pt states he had a twisted bowel and ended up with surgery. 8. CAUSE: concern for the twisted bowel again. 9. RELIEVING/AGGRAVATING FACTORS: Nothing makes it better and different positions can make it worse. 10. OTHER SYMPTOMS: Denies any other symptoms. Denies nausea or vomiting, or diarrhea or constipation. Protocols used: Abdominal Pain - [id number] documented [facility] Telephone encounter Note * Telephone Encounter - Leann Ibarra LPN - 10/25/2024 10:46 AM EST Pt has filled this last refill from the rx. New one would be needed for Dec 2024. [facility]12-09-2024 Miscellaneous Notes* Telephone Encounter - Leann Ibarra LPN - 10/25/2024 10:46 AM EST Pt has filled this last refill from the rx. New one would be needed for Dec 2024. * Telephone Encounter - Diane Gray - 10/25/2024 8:33 AM EST Prescription Refill Information The patient has been identified by name and date of : Yes Caregiver verified no other encounters exist for this prescription request: Yes Caregiver confirmed with patient/requestor that no other refills are due, in the near future, with this provider at this time: Yes The last office visit in the department: 03-18-24 Does the patient have a future office visit with this provider/department: Yes Requested Prescriptions Pending Prescriptions Disp Refills dutasteride (AVODART) 0.5 mg capsule 90 capsule 3 Sig: Take 1 capsule by mouth once daily. Diane Barker October 25, 2024 8:35 AM documented in this encounterLima [facility]12-[facility]-2024 Telephone encounter Note * Telephone Encounter - Diane Gray - 10/25/2024 8:33 AM EST Prescription Refill Information The patient has been identified by name and date of : Yes Caregiver verified no other encounters exist for this prescription request: Yes Caregiver confirmed with patient/requestor that no other refills are due, in the near future, with this provider at this time: Yes The last office visit in the department: 03-18-24 Does the patient have a future office visit with this provider/department: Yes Requested Prescriptions Pending Prescriptions Disp Refills dutasteride (AVODART) 0.5 mg capsule 90 capsule 3 Sig: Take 1 capsule by mouth once daily. Diane Lebron [facility] October 25, 2024 8:35 AM [facility]08-22-2024 Telephone encounter Note* Telephone Encounter - Lena Zuñiga - 07/08/2024 9:28 AM EDT Prescription Refill Information The patient has been identified by name and date of : Yes Caregiver verified no other encounters exist for this prescription request: Yes Caregiver confirmed with patient/requestor that no other refills are due, in the near future, with this provider at this time: Yes The last office visit in the department: 03-18-24 Does the patient have a future office visit with this provider/department: Yes Requested Prescriptions Pending Prescriptions Disp Refills montelukast (SINGULAIR) 10 mg tablet 90 tablet 3 Sig: Take 1 tablet by mouth daily at bedtime. For allergies. Lena Barker July 08, 2024 9:29 AM [facility]08-22-2024 Miscellaneous Notes* Telephone Encounter - Lena Zuñiga - 07/08/2024 9:28 AM EDT Prescription Refill Information The patient has been identified by name and date of : Yes Caregiver verified no other encounters exist for this prescription request: Yes Caregiver confirmed with patient/requestor that no other refills are due, in the near future, with this provider at this time: Yes The last office visit in the department: 03-18-24 Does the patient have a future office visit with this provider/department: Yes Requested Prescriptions Pending Prescriptions Disp Refills montelukast (SINGULAIR) 10 mg tablet 90 tablet 3 Sig: Take 1 tablet by mouth daily at bedtime. For allergies. Lena Barker July 08, 2024 9:29 AM documented in this encounterLima [facility] Hospital08-12-2024 Telephone encounter Note * Telephone Encounter - Beatrice Parker RN - 06/28/2024 8:58 AM EDT Patient's calls and notified of below. voices understanding. Beatrice Parker RN [facility]08-12-2024 Miscellaneous Notes* Telephone Encounter - Beatrice Parker RN - 06/28/2024 8:58 AM EDT Patient's calls and notified of below. voices understanding. Beatrice Parker RN * Telephone Encounter - Grace Avery LPN - 06/25/2024 12:53 PM EDT Phoned patient left message to return call and ask to speak to a nurse. * Telephone Encounter - Erwin Garcia MD - 06/25/2024 12:06 PM EDT That is a standard letter. His report did not show coronary artery calcifications. Still to avoid hardening of coronary arteries, it's never too late to stop smoking. * Telephone Encounter - Trang Seals RN - 06/24/2024 11:00 AM EDT Patient's calling and states they received a letter from [facility] stating that according to resultsof pt's recent Lung CT result, it is advised for them to speak with pt's PCP regarding patient's coronary artery calcifications. Please advise if further testing is warranted or any other recommendations. Trang Seals RN documented in this encounterLima [facility] Hospital08-09-2024 Telephone encounter Note * Telephone Encounter - Grace Avery LPN - 06/25/2024 12:53 PM EDT Phoned patient left message to return call and ask to speak to a nurse. [facility]08-09-2024 Telephone encounter Note* Telephone Encounter - Erwin Garcia MD - 06/25/2024 12:06 PM EDT That is a standard letter. His report did not show coronary artery calcifications. Still to avoid hardening of coronary arteries, it's never too late to stop smoking. [facility]08-08-2024 Telephone encounter Note* Telephone Encounter - Trang Seals RN - 06/24/2024 11:00 AM EDT Patient's calling and states they received a letter from [facility] stating that according to resultsof pt's recent Lung CT result, it is advised for them to speak with pt's PCP regarding patient's coronary artery calcifications. Please advise if further testing is warranted or any other recommendations. Trang Seals RN [facility]07-29-2024 Instructions* Patient Instructions* Isael Lebron APRN.CNP - 06/14/2024 9:12 AM EDT Lung nodule/s: all previously seen nodule/s have not changed in size or characteristic/resolved andthere are no new nodules of concern. Please return in one year for the following 2 visits on the same day: Annual low-dose CT chest Lung cancer screening Provider visit. This recommendation is subject to change pending the final report from radiology. I will notify you of the final radiology report recommendations when available by [facility] message, letter, or phone call. We will also notify your referring provider/PCP of the results and recommendations. If you didn t schedule this before you left the office or need to reschedule, you can call in to schedule it anytime: [facility] [phone] [facility] [phone] All other [facility] locations [phone] Feel free to reach out for any questions or concerns, Isael Lebron APRN.CNP Lung Cancer Screening [phone] documented in this encounterLima Memorial Hospital07-29-2024 NoteHNO ID: [id number] Author: ISAEL LEBRON APRN.CNP Service: ? Author Type: Nurse Practitioner Type: Progress Notes Filed: 06/14/2024 10:10 Note Text: LUNG SCREENING ANNUAL VISIT PRIMARY CARE PHYSICIAN: Erwin Garcia MD PULMONARY PROVIDER: none Results will be communicated via letter or electronic record if applicable. Visit Delivery: In Person Patient Visit Type: established Current or Ex-smoker? [Current Exam Type: annual LDCT Number of Pack Years: 28 Current smoker (=0) The patient's smoking history is similar to prior year shared decision visit. The reason for the discrepancy is NA Chief Complaint: Established patient in lung cancer screening program here for annual follow-up. Impression / Recommendations Hollie Cullen presents for annual lung cancer screening annual exam and nodule evaluation. Plan: Indeterminate pulmonary nodules: Previously identified nodules appear stable and no new nodules of concern were seen on the exam. Low dose CT Scan to be repeated in one year. Plan subject to change pending final radiology report and recommendations. Nature of the lung nodule(s) and the options for further evaluation discussed in detail with patient. Hollie Cullen expressed understanding and is in agreement with plan. 2. Encounter for screening for malignant neoplasm of respiratory organs I have determined that the patient is eligible for continued low dose CT screening based on age, absence of signs or symptoms of lung cancer, smoking history and total pack years. The patient was counseled on the importance of adherence to annual LDCT lung cancer screening, impact of comorbidities and ability or willingness to undergo diagnosis and treatment. The patient understands and feels comfortable with it: Yes. 3. Nicotine Dependence The patient was counseled on the importance of smoking cessation if current smoker and, if appropriate, offered additional tobacco cessation counseling services - Smoking Cessation Counseling. SMOKING CESSATION COUNSELING Smoking cessation methods including Behavior Modification were discussed with the patient and assistance offered. The medical conditions adversely affected by cigarette use include:COPD, Emphysema, and Lung Cancer. Counseled on benefits of quitting smoking, recommended cessation or reduction to prevent development and/or progression of emphysema. The patient is currently not ready to quit. I personally spent 2 minutes in counseling. The time spent in smoking cessation counseling is exclusive of any other counseling during this visit. I spent a total of 30 minutes on the date of the service which included preparing to see the patient, [id number] patient care, completing clinical documentation, performing a medically appropriate examination, counseling and educating the patient/family/caregiver, ordering medications, tests, or procedures, communicating with other HCPs (not separately reported), independently interpreting results (not separately reported), communicating results to the patient/family/caregiver, and care coordination (not separately reported). Isael Lebron APRN.[facility] June 14, 2024 8:48 AM History of Present Illness: Hollie Cullen is a 73 year old male who is presenting today for annual lung cancer screening LDCT and nodule surveillance/management. Patient has multiple nodules found on previous lung cancer screening LDCT. Last LDCT was performed on 06/09/2023 and was LUNG RADS Category 2. Previous potentially significant incidental findings on imaging: None. Patient is a current smoker with a 28 pack year history. Patient is currently still smoking 8-10 cigarettes daily. Patient will continue to be eligible for lung cancer screening until age 77. The patient does not have any symptoms or signs of lung cancer. Patient denies SOB with their daily activity. No wheezing or dyspnea. Patient denies feeling of chest tightness/congestion in the chest. Patient does not have a new or concerning cough, and denies hemoptysis. Patient does not have a chronic daily cough. Denies regular or recent fevers/chills. Patient does not have any significant unintentional weight loss. Patient denies having any respiratory infections or COVID-19 in the past few months. Does not use any maintenance inhaler for COPD. Modified [employer] [place] Dyspnea Scale (MMRC) I only get breathless with strenous exercise 0 Last 12 Encounter Wt Readings: Date: Wt: 03/18/2024 101.6 kg (224 lb) 01/13/2024 103.9 kg (229 lb) 05/28/2023 100.7 kg (222 lb) 03/13/2023 102.5 kg (226 lb) 04/04/2022 101.2 kg (223 lb 3.2 oz) 03/08/2022 102.1 kg (225 lb) 08/28/2021 101.6 kg (224 lb) 08/25/2020 104.3 kg (230 lb) 08/04/2019 103 kg (227 lb) 08/04/2018 103.4 kg (2 (more content not included)...[facility] 06-14-2024 History of Present illness Narrative* Loomis Isael, APRN.[employer] - 06/14/2024 8:48 AM EDT Images from the original note were not included. LUNG SCREENING ANNUAL VISIT PRIMARY CARE PHYSICIAN: Erwin Garcia MD PULMONARY PROVIDER: none Results will be communicated via letter or electronic record if applicable. Visit Delivery: In Person Patient Visit Type: established Current or Ex-smoker? [Current Exam Type: annual LDCT Number of Pack Years: 28 Current smoker (=0) The patient's smoking history is similar to prior year shared decision visit. The reason for the discrepancy is NA Chief Complaint: Established patient in lung cancer screening program here for annual follow-up. Impression / Recommendations Hollie Cullen presents for annual lung cancer screening annual exam and nodule evaluation. Plan: Indeterminate pulmonary nodules: Previously identified nodules appear stable and no new nodules of concern were seen on the exam. Low dose CT Scan to be repeated in one year. Plan subject to change pending final radiology report and recommendations. Nature of the lung nodule(s) and the options for further evaluation discussed in detail with patient. Hollie Cullen expressed understanding and is in agreement with plan. 2. Encounter for screening for malignant neoplasm of respiratory organs I have determined that the patient is eligible for continued low dose CT screening based on age, absence of signs or symptoms of lung cancer, smoking history and total pack years. The patient was counseled on the importance of adherence to annual LDCT lung cancer screening, impact of comorbidities and ability or willingness to undergo diagnosis and treatment. The patient understands and feels comfortable with it: Yes. 3. Nicotine Dependence The patient was counseled on the importance of smoking cessation if current smoker and, if appropriate, offered additional tobacco cessation counseling services - Smoking Cessation Counseling. SMOKING CESSATION COUNSELING Smoking cessation methods including Behavior Modification were discussed with the patient and assistance offered. The medical conditions adversely affected by cigarette use include:COPD, Emphysema, and Lung Cancer. Counseled on benefits of quitting smoking, recommended cessation or reduction to prevent development and/or progression of emphysema. The patient is currently not ready to quit. I personally spent 2 minutes in counseling. The time spent in smoking cessation counseling is exclusive of any other counseling during this visit. I spent a total of 30 minutes on the date of the service which included preparing to see the patient, [id number] patient care, completing clinical documentation, performing a medically appropriate examination, counseling and educating the patient/family/caregiver, ordering medications, tests, or p rocedures, communicating with other HCPs (not separately reported), independently interpreting results (not separately reported), communicating results to the patient/family/caregiver, and care coordination (not separately reported). Isael Lebron APRN.[facility] June 14, 2024 8:48 AM History of Present Illness: Hollie Cullen is a 73 year old male who is presenting today for annual lung cancer screeningLDCT and nodule surveillance/management. Patient has multiple nodules found on previous lung cancerscreening LDCT. Last LDCT was performed on 06/09/2023 and was LUNG RADS Category 2. Previous potentially significant incidental findings on imaging: None. Patient is a current smoker with a 28 pack year history. Patient is currently still smoking 8-10 cigarettes daily. Patient will continue to be eligible for lung cancer screening until age 79. The patient does not have any symptoms or signs of lung cancer. Patient denies SOB with their dailyactivity. No wheezing or dyspnea. Patient denies feeling of chest tightness/congestion in the chest. Patient does not have a new or concerning cough, and denies hemoptysis. Patient does not have a chronic daily cough. Denies regular or recent fevers/chills. Patient does not have any significant unintentional weight loss. Patient denies having any respiratory infections or COVID-19 in the past fewmonths. Does not use any maintenance inhaler for COPD. Modified Medical [employer] [place] Dyspnea Scale (MMRC) I only get breathless with strenous exercise 0 Last 12 Encounter Wt Readings: Date: Wt: 03/18/2024 101.6 kg (224 lb) 01/13/2024 103.9 kg (229 lb) 05/28/2023 100.7 kg (222 lb) 03/13/2023 102.5 kg (226 lb) 04/04/2022 101.2 kg (223 lb 3.2 oz) 03/08/2022 102.1 kg (225 lb) 08/28/2021 101.6 kg (224 lb) 08/25/2020 104.3 kg (230 lb) 08/04/2019 103 kg (227 lb) 08/04/2018 103.4 kg (227 lb 15.3 oz) 08/03/2018 103.4 kg (228 lb) 07/30/2017 103.9 kg (229 lb) Social History Tobacco Use: .5 packs/day, for 43 years. 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) CT Abd 09-24: Dilatation right ureter is seen to the level of superior aspect of the pelvis Family Hx: FAMILY HISTORY Problem Relation Age of Onset Diabetes Mother Cancer Mother uterine Cancer Father lung Obesity Sister Cancer Sister Obesity Sister Cancer Brother pancreatic cancer Colon Cancer Brother Cancer Brother None Brother None Brother None Brother Surgical Hx: PAST SURGICAL HISTORY Procedure Laterality Date APPENDECTOMY 1963 COLONOSCOPY FLX DX W/COLLJ SPEC WHEN PFRMD 1996 Colonoscopy - Polyps COLONOSCOPY FLX DX W/COLLJ SPEC WHEN PFRMD 08/15/2008 Colonoscopy COLONOSCOPY FLX DX W/COLLJ SPEC WHEN PFRMD 06/07/2013 Colonoscopy COLONOSCOPY FLX DX W/COLLJ SPEC WHEN PFRMD 08/19/2018 Colonoscopy COLONOSCOPY SCREENING 06/12/2023 LAPAROSCOPY, ENTEROLYSIS 01/25/2014 [facility] OPTX ANKLE DISLOCATION W/REPAIR/INT/XTRNL FIXJ Right 2012 ORIF Ankle SKIN BIOPSY HX Allergies: ALLERGIES No Known Allergies Review Of Systems: See HPI for ROS All of the remainder systems were reviewed and negative. PHYSICAL EXAMINATION: BP (P) 102/60 Pulse (P) 67 Resp (P) 15 Wt (P) 100.7 kg (222 lb) SpO2 (P) 95% BMI (P) 31.85 kg/m General appearance: well appearing, in no acute distress, and alert Skin: skin color, texture, turgor normal, no rashes or lesions Nose/Sinuses: Negative Oropharynx: Lips, mucosa, and tongue normal, teeth and gums normal, oropharynx normal Neck: Supple, no adenopathy; thyroid symmetric, normal size, no bruits Respiratory: lungs clear to auscultation no wheezing or rhonchi Cardiovascular: Negative. RRR without murmur, gallop, or rubs. No ectopy Musculoskeletal: Extremities normal. No deformities, edema, or skin discoloration. Good capillary refill. Neuro: Oriented X 3 Data Review I have visually reviewed imaging and testing below CT imaging done today was reviewed and analyzed independently and compared to prior CT chest imaging by practitioner and awaiting radiology review. All previously noted lung nodules are stable. No new lung nodules noted. Imaging * * *Final Report* * * DATE OF EXAM: Jun 09 2023 2:19PM [facility] [id number] - CT LUNG SCREEN WO [facility] / PROCEDURE REASON: multiple diagnoses * * * * Physician Interpretation * * * * EXAMINATION: CHEST CT WITHOUT CONTRAST (LOW-DOSE CT LUNG CANCER SCREENING PROTOCOL) CLINICAL HISTORY: Lung cancer LDCT screening ? absence of signs or symptoms of lung cancer. Nicotine dependence (cigarettes). Baseline (initial) Technique: Spiral CT acquisition of the chest from the thoracic inlet to the upper abdomen without contrast. MQ: CTLCS_6 Patient characteristics: * Xbha-vr-Wcgrb: 1950; Age at exam: 72 years * Gender: Male * Lung Disease: Asymptomatic (no signs or symptoms of lung disease) * Number of Pack Years: 28.5 * Current smoker (=0) or Number of Years since Quit: 0 * Ordering provider and NPI: ISAEL LEBRON [id number] * Interpreting radiologist and NPI: Mane [id number] Exam acquisition parameters: * Exam Date: 06/09/2023 2:19 PM * Site: [facility] * * CT System Document Imaging Manager: Siemens * CT System Model: Sensation * Tube Current-Time (mA-sec): 32 * Peak Voltage (kV): 120V * Scan Time (sec): 11.3 * Scan Volume (z-length, cm): -30.15 * Pitch: 0.75 * Slice Thickness (mm): 1.5 * CT Dose-Length Product: 103 mGy*cm * CT Dose Index: 2.50mGy * CT Dose Reduction Method: Automated exposure control(AEC) and iterative recon COMPARISON: None RESULT: Are nodules present? Yes, 6 or more nodules If No, go to IMPRESSION. If yes, proceed with characterization of the FIVE largest nodules. Nodule 1: This Solid nodule is located in the Right Upper Lobe on slice number 98 with an average diameter of 4.9 mm (5.7 mm x 4.1 mm). Nodule 2: This Solid nodule is located in the Right Upper Lobe on slice number 45 with an average diameter of 4.3 mm (6.4 mm x 2.2 mm). Nodule 3: This Calcified nodule is located in the Right Upper Lobe on slice number 47 with an average diameter of 5.6 mm (7.0 mm x 4.2 mm). Nodule 4: This Calcified nodule is located in the Right Upper Lobe on slice number 41 with an average diameter of 5.2 mm (6.6 mm x 3.8 mm). Nodule 5: This Calcified nodule is located in the Right Upper Lobe on slice number 41 with an average diameter of 4.1 mm (4.4 mm x 3.8 mm). If this is an ANNUAL LDCT for LCS, please ensure nodule number is the same as in the prior evaluation. Other lung nodule comments: Small endobronchial nodule in the right upper lobe is most likely mucoid impaction, image 86. Other findings: There is diffuse mild central and peripheral bronchial wall thickening. Linear atelectasis/scarring is noted in the right middle lobe, lingula and both lower lobes. Small amount of retained secretions are noted in the trachea. No pleural effusion. The thyroid gland is unremarkable. Few calcified mediastinal and hilar lymph nodes are noted, in keeping with remote granulomatous disease. The esophagus is nondistended. The thoracic aorta is normal in caliber. Central pulmonary arteries are normal in size. There is borderline left atrial enlargement. No pericardial effusion is noted. Calcified granulomas are noted in the spleen. A cystic lesion in the right kidney is partially imaged. Mild degenerative changes are noted in the thoracic spine. Emphysema: Mild (5-25%), Centrilobular, Upper lobe Coronary Artery Calcifications: Circumflex None; Left Anterior Descending None; Right Coronary None Glove Turner And Former (topogram) images: No additional findings. Last CT Chest - Impression Only No resulted procedures found. Last XR Chest - Impression Only XR CHEST 2V FRONTAL/LAT Collected: 07/30/2017 10:25 AM (Final result) Impression: IMPRESSION: No acute radiographic abnormality. Cigar Making Machine Supervisor: ASHLEY Transcribe Date/Time: Jul 31 2017 3:59P ... Pulmonary Function Testing: No textual results found for the specified procedure(s). documented in this encounterL[facility]07-29-[facility]24 History of Present illness Narrative* Abby Dietz RT(R) - 06/14/2024 8:00 AM EDT Radiology Service Progress Note PATIENT NAME: Hollie Cullen DATE OF SERVICE: June 14, 2024 TIME: 3:37 PM PATIENT IDENTITY VERIFICATION COMPLETED USING TWO (2) IDENTIFIERS: Name and Date of confirmedby patient verbally. FALL SCREENING: Has the patient had 2 falls in the last year or 1 fall with injury or currently using an Ambulatory Assistive Device (Walker, Cane, Wheelchair, Crutches, etc.)? No PATIENT GENDER DATA: Male PATIENT RELEVANT IMPLANT DATA REVIEWED: Yes PATIENT PRESENTS WITH AN IMPLANTABLE OR ATTACHED STUDIO DATA ANALYST: No RADIOLOGY DEPARTMENT: CT; Exam(s) Completed: Lung Screening PERIPHERAL IV DATA: Not applicable SIGNED BY: RT Connie(Caridad) June 14, 2024 3:37 PM documented in this encounterLima [facility] Hospital07-29-2024 NoteHNO ID: [id number] Author: ABBY DIETZ RT(Caridad) Service: ? Author Type: Business Administrator Type: Progress Notes Filed: 06/14/2024 15:37 Note Text: Radiology Service Progress Note PATIENT NAME: Hollie Cullen DATE OF SERVICE: June 14, 2024 TIME: 3:37 PM PATIENT IDENTITY VERIFICATION COMPLETED USING TWO (2) IDENTIFIERS: Name and Date of confirmed by patient verbally. FALL SCREENING: Has the patient had 2 falls in the last year or 1 fall with injury or currently using an Ambulatory Assistive Device (Walker, Cane, Wheelchair, Crutches, etc.)? No PATIENT GENDER DATA: Male PATIENT RELEVANT IMPLANT DATA REVIEWED: Yes PATIENT PRESENTS WITH AN IMPLANTABLE OR ATTACHED STUDIO DATA ANALYST: No RADIOLOGY DEPARTMENT: CT; Exam(s) Completed: Lung Screening PERIPHERAL IV DATA: Not applicable SIGNED BY: RT Connie(R) June 14, 2024 3:37 [facility]05[facility]02[facility] History of Present illness Narrative* Erwin Garcia MD - 03/18/2024 10:07 AM EDT This note was created using [employer]. Subjective Hollie Cullen is a 73 year old male. He was doing well. His right knee was better after seeing orthopedics. I see him for hyperlipidemia and this is controlled. He saw urology last year and it was felt hydroureteronephrosis was chronic. He was referred to nephrology who recommended monitoring only chronic kidney disease. Review of Systems Constitutional: Negative for fatigue, fever and unexpected weight change. HENT: Negative. Respiratory: Negative for cough and shortness of breath. Cardiovascular: Negative for chest pain and leg swelling. Gastrointestinal: Negative for abdominal pain, constipation and nausea. Musculoskeletal: Negative for myalgias. ACTIVE PROBLEM LIST Benign Neoplasm of Colon Tobacco Use Disorder Chronic Rhinitis Congenital Atrophy of Kidney Hyperlipidemia Skin Cancer of Scalp CKD (chronic kidney disease) stage 3, GFR 30-59 ml/min ([facility]) Impaired Fasting Glucose Obesity, Class I, Bmi 30-34.9 Bph With Obstruction/Lower Urinary Tract Symptoms Hydroureteronephrosis Special Screening for Malignant Neoplasms, Colon Social History Tobacco Use Smoking status: Every Day Packs/day: 0.50 Years: 43.00 Additional pack years: 0.00 Total pack years: 21.50 Types: Cigarettes, Pipe Smokeless tobacco: Never Vaping Use Vaping Use: Never used Substance Use Topics Alcohol use: Yes Alcohol/week: 28.0 standard drinks of alcohol Types: 14 Standard drinks or equivalent, 14 Cans of Beer (12oz) per week Comment: 1-2 beers daily Drug use: No Objective Blood Pressure 118/70 (BP Site: Left Arm, BP Position: Sitting, BP Cuff Size: Large Adult) Pulse 76 Temperature 36.3 C (97.3 F) (Temporal) Respiration 18 Height 177.8 cm (5' 10) Weight 101.6 kg (224 lb) Body Mass Index 32.14 kg/m Physical Exam Constitutional: Appearance: Normal appearance. Cardiovascular: Rate and Rhythm: Normal rate and regular rhythm. Heart sounds: No murmur heard. No gallop. Pulmonary: Effort: No respiratory distress. Breath sounds: No wheezing or rales. Musculoskeletal: Right lower leg: No edema. Left lower leg: No edema. Neurological: Mental Status: He is alert. Latest Ref Rng 03/16/2024 Protein, Total 6.3 - 8.0 g/dL 6.6 Albumin 3.9 - 4.9 g/dL 4.1 Calcium 8.5 - 10.2 mg/dL 9.5 Bilirubin, Total 0.2 - 1.3 mg/dL 0.4 Alkaline Phosphatase 38 - 113 U/L 75 AST 14 - 40 U/L 19 ALT 10 - 54 U/L 16 Glucose 74 - 99 mg/dL 101 (H) BUN 9 - 24 mg/dL 17 Creatinine 0.73 - 1.22 mg/dL 1.50 (H) Sodium 136 - 144 mmol/L 140 Potassium 3.7 - 5.1 mmol/L 4.6 Chloride 97 - 105 mmol/L 105 CO2 22 - 30 mmol/L 26 Anion Gap 9 - 18 mmol/L 9 eGFR >=60 mL/min/1.73m 49 (L) WBC 3.70 - 11.00 k/uL 6.39 RBC 4.20 - 6.00 m/uL 5.11 Hemoglobin 13.0 - 17.0 g/dL 14.7 Hematocrit 39.0 - 51.0 % 44.6 MCV 80.0 - 100.0 fL 87.3 MCH 26.0 - 34.0 pg 28.8 MCHC 30.5 - 36.0 g/dL 33.0 RDW-CV 11.5 - 15.0 % 14.4 Platelet Count 150 - 400 k/uL 187 MPV 9.0 - 12.7 fL 11.0 Absolute nRBC <0.01 k/uL <0.01 Cholesterol, Total <200 mg/dL 132 Triglyceride <150 mg/dL 118 HDL Cholesterol >39 mg/dL 43 Non HDL Cholesterol <130 mg/dL 89 Fasting Time hrs 16 VLDL Cholesterol <30 mg/dL 24 TC:HDL Ratio <5.10 3.07 LDL Cholesterol <100 mg/dL 65 LDL:HDL Ratio <2.54 1.51 Hemoglobin A1C 4.3 - 5.6 % 6.0 (H) Estimated Average Glucose mg/dL 126 Legend: (H) High (L) Low Assessment and Plan 1. Medicare annual wellness visit, subsequent - ICD9: V70.0, ICD10: Z00.00 (primary diagnosis) See wellness. 2. Hyperlipidemia, unspecified hyperlipidemia type - ICD9: 272.4, ICD10: E78.5 - Controlled - Continue current medications - Counseled on healthy diet and regular exercise - SIMVASTATIN 40 MG TABLET 3. Stage 3a chronic kidney disease (HCC) - ICD9: 585.3, ICD10: N18.31 - eGFR: 49 Stable - Counseled on avoiding NSAIDs, adequate hydration 4. Impaired fasting glucose - ICD9: 790.21, ICD10: R73.01 - Improved. 5. Benign neoplasm of colon, unspecified part of colon - ICD9: 211.3, ICD10: D12.6 - Up to date with screening. 6. Need for COVID-19 vaccine - ICD9: V04.89, ICD10: Z23 - Akella-Cureeo COVID-19 VACCINE ( SEASON) AGE 12+ YR Erwin Garcia MD * Erwin Garcia MD - 03/18/2024 9:56 AM EDT Images from the original note were not included. Hollie Cullen is a 73 year old male here for a Medicare wellness visit. Medicare Health Risk Assessment General Health Good Exercise: Minutes/Day 60 min Exercise: Days/Week 7 days Alcohol: Daily Use 4 or more times a week Alcohol: Drinks/Day 1 or 2 Alcohol: 6 or more drinks Never Feel off balance No Concerns: Teeth/Dentures Yes Concerns: Sexual function No Troubled by feelings None of the above Frequency: Eating healthy diet More than half the days ADLs requiring help None of the above Safety precautions in home/vehicle Yes Smoke, vape, chews tobacco Yes, but I'm not ready to quit Difficulty hearing No Difficulty seeing No Current Providers Specialists: I have reviewed specialist-related care of the patient in the medical record. Current care team: Patient Care Team: Erwin Garcia MD as PCP - General (Internal Medicine) Ge Harris PA-C, -- Orthopedics. Isael Lebron APRN, YONIS-- [facility]. Outside specialists seen: Shyam Stark MD- Dermatology, [facility] Mau Hinson MD- Nephrology, JEROME Hatch OD- Optometry, Kentrell Scruggs MD- Urology, Nicole. Medical/Family history review Reviewed and updated problem list, medical/surgical/family/social history, medications, and allergies. Opioid use review Opioid Medications (last 90 days) Row Labels 01/13/2024 01/16/2024 23:59 Opioid Medications Section Header. No data exists in this row. hydrocodone/acetaminophen 1 tablet q 6 H PRN ORAL -Rx End hydrocodone/ibuprofen 1 tablet q 8 H PRN ORAL -Discontinued Details Outpatient prescription Depression screening Row Labels Depression Screening PHQ-2 Score GABINO-2 Total Score 03/18/2024 0 0 Depression screening tool completed and reviewed. Based on score and interview, patient is not at risk for depression. Screening tool discussed with patient, and I recommended no further interventionat this time. Cognitive screening Cognitive screening reviewed and No further action needed (score 3-5). Functional Observation Was the patient's Timed Up & Go test unsteady or ? 12 seconds? No Advance Care Planning Patient was not able to provide a surrogate decision maker or written advance directives Measurements BP 118/70 Pulse 76 Temp (Src) 97.3 (Temporal) Resp 18 Ht 5' 10 (1.78m) Wt 224 lb (101.6kg) BMI 32.14 kg/(m^2). Vision Screening: Follows with optometry/ophthalmology Declines visual acuity screen Assessment/Plan Medicare annual wellness visit, subsequent (Z00.00) - Counseled on healthy diet and regular exercise - Fall avoidance information provided - Personalized prevention plan provided - Smoking cessation encouraged; discussed risks to health and quitting strategies. Patient is not ready to quit - Counseled patient on alcohol intake and associated health risks - Vaccine: Covid booster. documented in this encounterLima [facility]04-29-2024 Telephone encounter Note * Telephone Encounter - Manda Gr LPN - 03/15/2024 4:09 PM EDT Patient notified fasting labs have been ordered. Manda Gr LPN [facility]04-29-[facility] Miscellaneous Notes* Telephone Encounter - Manda Gr LPN - 03/15/2024 4:09 PM EDT Patient notified fasting labs have been ordered. Manda Gr LPN * Telephone Encounter - Marylu Layton RN - 03/15/2024 8:13 AM EDT Pts called in asking for provider to put in lab work for Pt to get before Medicare Wellness on03/18/24. Please call 's cell phone to let them know once ordered. documented in this encounterLima [facility] Hospital04-29-2024 Telephone encounter Note * Telephone Encounter - Marylu Layton RN - 03/15/2024 8:13 AM EDT Pts called in asking for provider to put in lab work for Pt to get before Medicare Wellness on03/18/24. Please call 's cell phone to let them know once ordered. [facility] Miscellaneous Notes* Telephone Encounter - lEisha Velásquez APRN.CNS - 01/13/2024 12:29 PM EST ok * Telephone Encounter - Beatrice Parker RN - 01/13/2024 12:04 PM EST Pharmacist from [facility] calls and states that they do not have vicoprofen. States that thisis not a common medication to order and many pharmacies will not have this medication. Patient had reported to her that he is unable to take ibuprofen. Pharmacist asking if provider can change prescri ption? Please review and advise, Beatrice Parker RN documented in this encounterLima [facility] Hospital02-27-2024 Instructions* Patient Instructions* Elisha Velásquez APRN.CNS - 01/13/2024 10:57 AM EST Continue to avoid painful activities, rest ice and elevate your knee. Continue with Tylenol as needed for pain. Try hydrocodone acetaminophen at bedtime if the pain is keeping you awake. Colace if any constipation while taking the pain medication. documented in this encounterLima [facility] Hospital02-27-2024 History of Present illness Narrative* Elisha Velásquez APRN.CNS - 01/13/2024 10:41 AM EST SUBJECTIVE: RSV Vaccine(1 - 1-dose 60+ series) Never done Advance Directive Discussion due on 11/17/2023 Depression Assessment due on 11/17/2023 HPI Hollie Cullen is a 73 year old male. PMH significant for ACTIVE PROBLEM LIST Benign Neoplasm of Colon Tobacco Use Disorder Chronic Rhinitis Congenital Atrophy of Kidney Hyperlipidemia Skin Cancer of Scalp CKD (chronic kidney disease) stage 3, GFR 30-59 ml/min ([facility]) Impaired Fasting Glucose Obesity, Class I, Bmi 30-34.9 Bph With Obstruction/Lower Urinary Tract Symptoms Hydroureteronephrosis Special Screening for Malignant Neoplasms, Colon PCP: Erwin Garcia MD Presents today regarding right medial knee pain has been present for a few weeks. He was seen at [facility] urgent care on January 01, 2024 regarding this. He reports he was sitting in a tree when he got down he was stiff and pain on the medial aspect of the knee. State no fall or twisting injury that he can recall. X-ray was recommended. This showed medial p atellofemoral joint space loss. Tricompartmental osteophytes. No erosions no acute fracture or dislocation is noted. He was recommended to wear knee brace or supportive sleeve, Tylenol and rest. If symptoms persist greater than 2 weeks recommended orthopedic follow-up. Today reports right medial aspect of knee hurts all the time, worse with walking. The pain was present a couple of weeks prior to being seen in urgent care. He reports no locking or giving way. No fall. No injury no crepitus.Brace and tylneol have helped somewhat. He reports prior right knee discomfort but was fleeting, with past with stretching and walking. Creatinine Date Value Ref Range Status 02/17/2023 1.62 (H) 0.73 - 1.22 mg/dL Final 02/26/2022 1.50 (H) 0.73 - 1.22 mg/dL Final 08/21/2021 1.51 (H) 0.73 - 1.22 mg/dL Final 08/14/2020 1.46 (H) 0.73 - 1.22 mg/dL Final Review of Systems Constitutional: Negative. Musculoskeletal: Positive for arthralgias. Objective BP 126/80 Pulse 71 Wt 103.9 kg (229 lb) SpO2 94% BMI 31.94 kg/m Physical Exam Vitals and nursing note reviewed. Constitutional: Appearance: Normal appearance. HENT: Head: Normocephalic and atraumatic. Eyes: Conjunctiva/sclera: Conjunctivae normal. Cardiovascular: Rate and Rhythm: Normal rate. Pulmonary: Effort: Pulmonary effort is normal. Musculoskeletal: Right knee: No effusion or crepitus. Decreased range of motion. Tenderness present over the medial joint line. Skin: General: Skin is warm and dry. Neurological: General: No focal deficit present. Mental Status: He is alert and oriented to person, place, and time. ALLERGIES No Known Allergies dutasteride (AVODART) 0.5 mg capsule Take 1 capsule by mouth once daily. montelukast (SINGULAIR) 10 mg tablet Take 1 tablet by mouth daily at bedtime. For allergies. simvastatin (ZOCOR) 40 mg tablet Take 1 tablet by mouth daily at bedtime. imiquimod (ALDARA) 5 % cream Apply 1 application to affected area three times a week. triamcinolone acetonide (KENALOG) 0.1 % cream Apply 1 application to affected area twice daily as needed. forehead MULTIVITAMIN TAB Take one(1) tablet daily. 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 Acute pain of right knee - ICD9: 719.46, ICD10: M25.561 Recommend continue with RICE, he has been using an edzj-mxo-ulcpklu knee brace and Tylenol which ishelping somewhat. Avoiding NSAIDs due to kidney disease. Will add hydrocodone at bedtime to help with sleep, docusate as needed if OIC occurs. Recommend orthopedic visit as earliest convenience. - CONSULT TO ORTHOPAEDICS - HYDROCODONE 7.5 MG-IBUPROFEN 200 MG TABLET - DOCUSATE SODIUM 100 MG CAPSULE Elisha Velásquez APRN.CNS Medical Decision Making: Problems: Low: Acute, uncomplicated illness or injury Data: Unique source(s) for external note(s) reviewed: 1 Unique test result(s) reviewed: 1 Risk: Moderate: Drug management Medical Decision Making Level: 3 - Low documented in this encounterLima [facility] Hospital02-15-2024 History of Present illness Narrative* Trell Goldman APRN-RIGHT OF WAY AGENT - 01/01/2024 9:10 AM EST 73 y.o. male presents for evaluation of right medial knee pain that began a few weeks ago. States he was sitting in a tree stand when he got down he felt his knee was very stiff and had pain to the medial aspect of his knee. Denies twisting, falling or any injury that he can recall. Denies swelling, bruising, numbness or tingling or any calf pains. No OTC meds or symptom management. No other complaints. Vitals: 01/01/24 0920 BP: 111/74 Pulse: 74 Resp: 16 Temp: 37.1 C (98.7 F) SpO2: 94% No Known Allergies Medication Documentation Review Audit Reviewed by Angel Nogueira MA (Photolith Operator) on 01/01/24 at 0920 Medication Order Taking? Sig Documenting Provider Last Dose Status dutasteride (Avodart) 0.5 mg capsule [id number] Yes Take 1 capsule (0.5 mg) by mouth once daily. Historical ProviderMD Taking Active montelukast (Singulair) 10 mg tablet [id number] Yes Take 1 tablet (10 mg) by mouth. Historical ProviderMD Taking Active multivit with min-folic acid 0.4 mg tablet [id number] Yes once every 24 hours. Historical Provider, Taking Active simvastatin (Zocor) 40 mg tablet [id number] Yes Take 1 tablet (40 mg) by mouth once daily at bedtime. Historical ProviderMD Taking Active History reviewed. No pertinent past medical history. History reviewed. No pertinent surgical history. ROS See HPI Physical Exam Vitals and nursing note reviewed. Constitutional: Appearance: Normal appearance. Musculoskeletal: Right knee: No swelling, deformity, effusion, erythema, ecchymosis or bony tenderness. Decreased range of motion. Tenderness present over the medial joint line. No lateral joint line tenderness. Instability Tests: Anterior drawer test negative. Posterior drawer test negative. Medial Ekaterina test positive. Skin: General: Skin is warm and dry. Neurological: General: No focal deficit present. Mental Status: He is alert and oriented to person, place, and time. Psychiatric: Mood and Affect: Mood normal. Behavior: Behavior normal. Assessment/Plan/MDM Hollie was seen today for knee pain. Diagnoses and all orders for this visit: Injury of right knee, initial encounter (Primary) - XR knee right 3 views; Future Encouraged patient to trial wearing a knee sleeve/support OTC, otc tylenol and rest. If symptoms persist > 2 weeks, referral to ortho may be necessary. Patient's clinical presentation is otherwiseunremarkable at this time. Patient is discharged with instructions to follow-up with primary care or seek emergency medical attention for worsening symptoms or any new concerns. Trell Goldman CNP [facility] [phone] documented in this encounterMetroHealth [facility] Work Phone: [phone]) 209-944002-05-2024 Miscellaneous Notes* Telephone Encounter - Manda Gr LPN - 12/22/2023 12:59 PM EST Patient has refills remaining on Singulair. Patient has been identified by name and date of : Yes Patient phones for refill(s): Requested Prescriptions Pending Prescriptions Disp Refills dutasteride (AVODART) 0.5 mg capsule 90 capsule 3 Sig: Take 1 capsule by mouth once daily. Date of last office visit in primary care: 03/13/2023 Date of next office visit in primary care: 03/18/2024 Please advise. Thank you. Manda Gr LPN. * Telephone Encounter - Kayy Rodriguez - 12/22/2023 8:15 AM EST Patient has been identified by name and date of : Yes Requested Prescriptions Pending Prescriptions Disp Refills dutasteride (AVODART) 0.5 mg capsule 90 capsule 3 Sig: Take 1 capsule by mouth once daily. montelukast (SINGULAIR) 10 mg tablet 90 tablet 3 Sig: Take 1 tablet by mouth daily at bedtime. For allergies. RX INSTRUCTIONS: Patient aware RX will be sent to pharmacy. No need to notify patient. Kayy Barker documented in this encounterL[facility]09-[facility]23 Miscellaneous Notes* Telephone Encounter - Lena Zuñiga - 07/25/2023 12:26 PM EDT Patient is switching pharmacies from mail order * Telephone Encounter - Lena Zuñiga - 07/25/2023 12:25 PM EDT Pharmacy verified in Epic Patient has been identified by name and date of : Yes Patient requesting a call when RX is approved and sent to the pharmacy. Please call patient at: [phone] Spouse phones for refill(s): Requested Prescriptions Pending Prescriptions Disp Refills montelukast (SINGULAIR) 10 mg tablet 90 tablet 3 Sig: Take 1 tablet by mouth daily at bedtime. For allergies. Date of last office visit : 03/13/2023 Date of next office visit : Visit date not found Last 2 Encounter Wt Readings: Date: Wt: 05/28/2023 100.7 kg (222 lb) 03/13/2023 102.5 kg (226 lb) Not applicable Please advise. Lena Barker documented in this encounterLima [facility]07-28-2023 Miscellaneous Notes* Telephone Encounter - Isael Lebron APRN.CNP - 06/13/2023 12:56 PM EDT Phone call to patient and discussed results LDCT Lung Rads category 2-repeat CT in 12 mos documented in this encounterLima [facility] Hospital07-17-2023 Miscellaneous Notes* Telephone Encounter - Manda Gr LPN - 06/02/2023 4:46 PM EDT Patient notified of below results/recommendations. Patient is wanting to stay in [place], referral sent to Dr. Romero. Manda Gr LPN * Telephone Encounter - Manda Gr LPN - 06/02/2023 4:41 PM EDT ----- Message from Erwin Garcia MD sent at 05/31/2023 10:52 PM EDT ----- Worse chronic right hydroureteronephrosis, right kidney atrophy. Left kidney okay. I recommend urology consult. documented in this encounterLima [facility] Hospital07-12-2023 Instructions* Patient Instructions* Isael Lebron APRN.YONIS - 05/28/2023 10:[address] Lung Screen Results The CT scan that you will have done will show if you have any nodules (small spots) in your lungs that are suspicious for cancer. Around 90% of the patients who have this scan done are found to have at least one nodule. Most nodules are benign (not cancer) and of no harm to you at all. A specialistwill make a scientific evaluation about whether or not a nodule is worrisome based on its size and shape. The radiologist who will read your scan will put it into one of four categories: LUNG-RADS Category Description Overall Probability of Malignancy Recommended Follow-Up 1 Negative No nodules and definitely benign (non-cancerous nodules) Essentially 0. 1 Year - Follow-up Low dose CT 2 Benign Appearance or Behavior Nodules with a very low likelihood of becoming cancer due to size or lack of growth Less than 1% 1 Year - Follow-up Low dose CT 3 Probably Benign Probably benign finding, short term follow-up recommended 1 to 2% 6 Months - Follow-up CT 4 A,B,or X Suspicious Findings for which additional diagnostic testing and/or biopsy is recommended Will be calculated based on nodule characteristics. Dependent on what is seen on the exam. [address], PET, Biopsy At times, we may see something outside of the lungs on the scan that could be a health concern. Below are some of the most common findings: S Clinically Significant or Potentially Clinically Significant Findings (non lung cancer) Referral or additional imaging/labs depending on result. Approximately 10% of people receive this result. Coronary Artery Calcifications (Moderate or Severe) - Referral to cardiology or PCP for further work-up and recommendations. Thyroid Nodule - TSH level and Thyroid Ultrasound dependent on size, referral to endocrinology. Adrenal Nodule - Blood work and referral to endocrinology. Others Lung Cancer Screening hotline: [phone] Lung Cancer Screening [phone] Billing Questions: or [email or web address] Lung Cancer Screening Team: Marylu Manning CNP; Shanae Wilder PA-C; Abby Mills CNP; Katie Ralph CNP, Gail Gonzales PA-C, Mary Partida PA-C, Isael Lebron, RIGHT OF WAY AGENT : [phone] documented in this encounterLima [facility] Hospital07-12-2023 History of Present illness Narrative* Isael Lebron APRN.CNP - 05/28/2023 10:46 AM EDT Images from the original note were not included. LUNG SCREENING VISIT PRIMARY CARE PHYSICIAN: Erwin Garcia MD PULMONARY PROVIDER: None Results will be communicated via letter or electronic record if applicable. Visit Delivery: In Person Patient Visit Type: New to Screening Current or Ex-smoker? [Current Exam Type: baseline LDCT Number of Pack Years: 28.5 Current smoker (=0) REQUESTER: The referring provider advised the patient to have screening. HISTORY OF PRESENT ILLNESS: Hollie Cullen is a 72 year old Active smoker who presents for lung screening. Respiratory symptoms include: SOB: No Chest tightness: No Coughing: Yes: With mucus Clear Hemoptysis: No Wheezing: No Fever/Chills: No Recent Respiratory Infection: No Unintentional weight loss: No Last 6 Encounter Wt Readings: Date: Wt: 05/28/2023 100.7 kg (222 lb) 03/13/2023 102.5 kg (226 lb) 04/04/2022 101.2 kg (223 lb 3.2 oz) 03/08/2022 102.1 kg (225 lb) 08/28/2021 101.6 kg (224 lb) 08/25/2020 104.3 kg (230 lb) ECOG PERFORMANCE STATUS: 0- Fully active, able to carry on all pre-disease performance w/o restriction. 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) CT Abd 09-24: Dilatation right ureter is seen to the level of superior aspect of the pelvis PAST SURGICAL HISTORY Procedure Laterality Date APPENDECTOMY 1963 COLONOSCOPY FLX DX W/COLLJ SPEC WHEN PFRMD 1996 Colonoscopy - Polyps COLONOSCOPY FLX DX W/COLLJ SPEC WHEN PFRMD 08/15/2008 Colonoscopy COLONOSCOPY FLX DX W/COLLJ SPEC WHEN PFRMD 06/07/2013 Colonoscopy COLONOSCOPY FLX DX W/COLLJ SPEC WHEN PFRMD 08/19/2018 Colonoscopy LAPAROSCOPY, ENTEROLYSIS 01/25/14 [facility] OPTX ANKLE DISLOCATION W/REPAIR/INT/XTRNL FIXJ Right 2012 ORIF Ankle FAMILY HISTORY Problem Relation Age of Onset Diabetes Mother Cancer Mother uterine Cancer Father lung Obesity Sister Cancer Sister Obesity Sister Cancer Brother pancreatic cancer Colon Cancer Brother Cancer Brother None Brother None Brother None Brother simvastatin (ZOCOR) 40 mg tablet Take 1 tablet by mouth daily at bedtime. dutasteride (AVODART) 0.5 mg capsule Take 1 capsule by mouth once daily. montelukast (SINGULAIR) 10 mg tablet Take 1 tablet by mouth daily at bedtime. For allergies. imiquimod (ALDARA) 5 % cream Apply 1 application to affected area three times a week. triamcinolone acetonide (KENALOG) 0.1 % cream Apply 1 application to affected area twice daily as needed. forehead MULTIVITAMIN TAB Take one(1) tablet daily. ALLERGIES No Known Allergies The medications and allergies were reviewed and reconciled for this patient and deemed current. Lung Cancer Risk Factors: 1.Tobacco Use: Start Age 16, Quit Age: N/A, Average packs per day 0.5, Pack Years 28.5 2. Passive Smoke Exposure: Yes, as a Child 3. Personal hx of malignancy: Yes, Type of Cancer: Other smoking-related cancers 4. 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 Race: White 6. Education: High School Graduate 7. BMI:Body mass index is 30.96 kg/m . Patient-entered Height: 5'11 Patient-entered Weight: 222 pounds 8. COPD: No 9. Pneumonia in the past 5 years: No 10. Is there a history of lung cancer in a first degree relative? Yes 11. Is there a history of lung cancer in a non-first degree relative? No 12. Is there a history of any other cancer in a first degree relative? Yes Health Maintenance Immunization History Administered Date(s) Administered COVID-19 original vaccine, full dose, monovalent (MODERNA) 01/09/2021 02/09/2021 10/29/2021 03/15/2022 COVID-19 vaccine, age 12+ yr, bivalent (MODERNA) 08/08/2022 TD Adult 03/17/2008 influenza (HD-IIV) vaccine, age 65+ yr, high dose, PF (FLUZONE HIGH-DOSE) 08/03/2018 08/04/2019 08/10/2020 influenza (HD-IIV4) vaccine, age 65+ yr, high dose, quadrivalent, PF (FLUZONE HIGH-DOSE) 08/28/2021 influenza (IIV4) vaccine, age 6 mo - 64 yr, quadrivalent (AFLURIA, FLULAVAL, FLUZONE) 09/07/2015 09/07/2016 07/30/2017 influenza vaccine, unspecified formulation 08/31/2012 pneumococcal (PCV13) vaccine, 13 valent (PREVNAR 13) 08/03/2018 pneumococcal (PPV23) vaccine, 23 valent (PNEUMOVAX 23) 09/14/2013 08/04/2019 tetanus diphtheria pertussis (Tdap) vaccine, age 7+ yr (ADACEL, BOOSTRIX) 04/04/2017 zoster (RZV) vaccine, recombinant (SHINGRIX) 09/23/2019 11/24/2019 Colonoscopy: 08/19/2018 Mammogram: DATA REVIEW I have directly visualized the testing documented: None Prior Imaging: Last CT/CTA Chest/Lungs No resulted procedures found. Last CT Chest - Impression Only No resulted procedures found. Last XR Chest - Impression Only XR CHEST 2V FRONTAL/LAT Collected: 07/30/2017 10:25 AM (Final result) Impression: IMPRESSION: No acute radiographic abnormality. Cigar Making Machine Supervisor: ASHLEY Transcribe Date/Time: Jul 31 2017 3:59P ... Pulmonary Function Testing: No textual results found for the specified procedure(s). PHYSICAL EXAM: BP 122/78 Pulse (!) 50 Resp 17 Wt 100.7 kg (222 lb) SpO2 98% BMI 30.96 kg/m Deferred ASSESSMENT and RECOMMENDATIONS: 1. Screening for lung cancer: Six year risk for lung cancer: 9.11% I have determined that the patient is eligible for a low dose CT based on age, absence of signs or symptoms of lung cancer, and total pack years: Yes. The patient and I engaged in shared decision making, including the use of one or more decision aids, to include benefits, harms, follow-up diagnostic testing, over-diagnosis, false positive rate, andtotal radiation exposure. The patient understands and feels comfortable with it: Yes. The patient was counseled on the importance of adherence to annual LDCT lung cancer screening, impact of comorbidities and ability or willingness to undergo diagnosis and treatment. The patient understands and feels comfortable with it:Yes. 2. Nicotine dependence: The patient was counseled on the importance of smoking cessation if currentsmoker and, if appropriate, offered additional tobacco cessation counseling services - Smoking Cessation Counseling. SMOKING CESSATION COUNSELING Smoking cessation methods including Behavior Modification were discussed with the patient and assistance offered. The medical conditions adversely affected by cigarette use include:COPD, Emphysema, and Lung Cancer. The patient is currently not ready to quit. I personally spent 3 minutes in counseling. The time spent in smoking cessation counseling is exclusive of any other counseling during this visit. Isael Lebron APRN.CNP NPI #: May 28, 2023 10:52 AM documented in this encounterLima [facility] Hospital04-27-2023 Instructions* Patient Instructions* Erwin Garcia MD - 03/13/2023 8:39 AM EDT Health Information For Patients and the Community How to Prepare for Your Colonoscopy Using Golytely, Nulytely, Trilyte or Colyte Preparations IMPORTANT - Please Read These Instructions at Least 2 Weeks Before Your Colonoscopy [place] Instructions: ?Your bowel must be empty so that your doctor can clearly view your colon. Follow all of the instructions in this handout EXACTLY as they are written. If you do NOT follow the directions for when to start drinking the bowel preparation (see next page), your colonoscopy WILL be cancelled. ?Do NOT eat any solid food the ENTIRE day before your colonoscopy. ?Buy your bowel preparation at least 5 days before your colonoscopy. ?Do NOT mix the solution until the day before your colonoscopy. Designated Armored Cable Machine Operator on the Day of Your Exam A responsible family member or friend MUST come with you to your colonoscopy and REMAIN in the endoscopy area until you are discharged! You are NOT ALLOWED to drive, take a taxi or bus, or leave the Endoscopy Center ALONE. If you do not have a responsible starting gate driver (family member or friend) with you to take you home, your exam cannot be done with sedation and will be cancelled. Medications Some of the medicines you take may need to be stopped or adjusted before your colonoscopy. You MUST call the doctor who ordered any of the following medicines at least 2 weeks before your colonoscopy. ?Blood thinners -- such as Coumadin (warfarin), Plavix (clopidogrel), Ticlid (ticlopidine hydrochloride), Agrylin (anagrelide), Xarelto (Rivaroxaban), Pradaxa (Dabigatran), Eliquis (Apixaban), and Effient (Prasugrel). ?Insulin or diabetes pills. Please call the doctor that monitors your glucose levels. Your insulin dosage may need to be adjusted due to the diet restrictions required with this bowel preparation. (Please bring your diabetes medicines with you on the day of your procedure.) If you take aspirin, take it and ALL other medications prescribed by your doctor. On the day of your colonoscopy, take your medications with a sip of water. Revised 12/2016 1 Five (5) Days Before Your Colonoscopy ?Do NOT take medicines that stop diarrhea -- such as Imodium , Kaopectate , or Pepto Bismol . ?Do NOT take fiber supplements -- such as Metamucil , Citrucel , or Perdiem . ?Do NOT take products that contain iron -- such as multi-vitamins -- (the label lists what is in the products). ?Do NOT take vitamin E. Buy the prescription bowel preparation solution at your local pharmacy or drugstore pharmacy. Three (3) Days Before Your Colonoscopy Do NOT eat high-fiber foods -- such as popcorn, beans, seeds (flax, sunflower, quinoa), multigrain bread, nuts, salad/vegetables, or fresh and dried fruit. One (1) Day Before Your Colonoscopy Only drink clear liquids the ENTIRE DAY before your colonoscopy. Do NOT eat any solid foods. Drink at least 8 ounces of clear liquids every hour after waking up. The clear liquids you can drink include: ?water, apple, or white grape juice; broth; coffee or tea (without milk or creamer); clear carbonated beverages such as stephanie oriana or lemon-ely shoshone soda; Gatorade or other sports drinks (not red); Geovany-Aid or other flavored drinks (not red). You may eat plain jello or other gelatins (not red) or popsicles (not red). Do NOT drink alcohol on the day before or the day of the procedure. 2 Revised 12/2016 When to Mix and Drink Your Bowel Prep Follow the instructions on the label. After mixing, place the solution in the refrigerator for a couple of hours before drinking. You may add the flavor packet that came with the bowel preparation. DO NOT add ice, sugar or any flavorings to the solution. Evening Before Your Colonoscopy ?Start drinking the bowel preparation at 6 PM the evening before your colonoscopy. Drink an 8-oz glass of bowel preparation every 10 minutes. You must finish drinking the solution by 9 PM the night before your scheduled procedure. ?You may continue to drink clear liquids only until midnight. Do NOT eat or drink ANYTHING after midnight the night before your procedure or your procedure may be cancelled. This is for your safety and will reduce the risk of having any food or liquid in your stomach move into your lungs (aspiration) during a procedure. If you take aspirin, take it and ALL other prescribed medicines with a sip of water on the day of your colonoscopy. Contact Information: If you are unable to keep your appointment or have any questions about the instructions, please call the facility where the procedure is being performed. Call between the hours of 8:00 AM and 5:00 PM. If you are calling after 5:00 PM, please call Nurse communications manager at [phone]. [facility] [address] [place] [id number] Index # [id number] Revised 12/2016 3 Colonoscopy Procedure Overview Please Read Prior to the Procedure What is a Colonoscopy A colonoscopy is an outpatient procedure in which the inside of the large intestine (colon and rectum) is examined. A colonoscopy is commonly used to evaluate gastrointestinal symptoms, such as rectal and intestinal bleeding, abdominal pain, or changes in bowel habits. Colonoscopies are also performed in individuals without symptoms to check for colorectal polyps or cancer. A screening colonoscopy is recommended for anyone 50 years of age and older, and for anyone with parents, siblings or children with a history of colorectal cancer or polyps. What Happens Before a Colonoscopy To have a successful colonoscopy, your bowel must be empty so that your physician can clearly view the colon. To do this, it is very important to read and follow all of the instructions given to you at least 2 weeks BEFORE your exam. If your bowel is not empty, your colonoscopy will not be successful and may have to be repeated. If you feel nauseated or vomit while taking the bowel preparation, wait 30 minutes before drinking more fluid and start with small sips of solution. Some activity (such as walking) or a few soda crackers may help decrease the nausea you are feeling. If the nausea persists, please contact nurse organizational research consultant at [phone]. You may experience skin irritation around the anus due to the passage of liquid stools. To prevent and treat skin irritation, you should: ?Apply Vaseline or Desitin ointment to the skin around the anus before drinking the bowel preparation medications. These products can be purchased at any [employer]. ?Wipe the skin after each bowel movement with disposable wet wipes instead of toilet paper. These are found in the toilet paper area of the store. ?Sit in a bathtub filled with warm water for 10 to 15 minutes after you finish passing a stool; after soaking, blot the skin dry with a soft cloth, apply Vaseline or Desitin ointment to the anal area, and place a cotton ball just outside your anus to absorb leaking fluid. What Happens During a Colonoscopy During a colonoscopy, an experienced physician uses a colonoscope (a long, flexible instrument about 1/2 inch in diameter) to view the lining of the colon. The colonoscope is inserted into the rectumand advanced through the large intestine. If necessary during a colonoscopy, small amounts of tissue can be removed for analysis (a biopsy) and polyps can be identified and entirely removed. In many cases, a colonoscopy allows accurate diagnosis and treatment of colorectal problems without the needfor a major operation. Revised 12/2016 5 ?You are asked to wear a hospital gown and an IV will be started. ?You are given a pain reliever and a sedative intravenously (in your vein). You will feel relaxed and somewhat drowsy. ?You will lie on your left side, with your knees drawn up towards your chest. ?A small amount of air is used to expand the colon so the physician can see the colon padron. ?You may feel mild cramping during the procedure. Cramping can be reduced by taking slow, deep breaths. ?The colonoscope is slowly withdrawn while the lining of your bowel is carefully examined. ?The procedure lasts from 30 minutes to 1 hour. What Happens After a Colonoscopy ?You will stay in a recovery room for observation until you are ready for discharge. ?You may feel some cramping or a sensation of having gas, but this quickly passes. ?If sedation has been given, a responsible family member or friend must drive you home. ?Avoid alcohol, driving, and operating machinery for 24 hours following the procedure. ?Unless otherwise instructed, you may immediately return to your normal diet. We recommend you waituntil the day after your procedure to resume normal activities. ?If polyps were removed or a biopsy was taken, the physician performing your colonoscopy will tell you when it is safe to resume taking your blood thinners. ?If a biopsy was taken or a polyp was removed, you may notice a little amount of rectal bleeding for 1 to 2 days after the procedure. If you have a large amount of rectal bleeding, high or persistentfevers, or severe abdominal pain within the next 2 weeks, please go to your local emergency room and call the physician who performed your exam. 6 Revised 12/2016 Copyright 8114-2073 [facility]. All rights reserved. Revised 12/2016 Advance Directive Forms Advanced Directives Forms (Chadian) FORMS: [email or web address].[email or web address]/[email or web address]/rszr-hcqxkg-moer-zdawm-ti-exjupphh.[email or web address] INFORMATIONAL BROCHURE: [email or web address]/-/scassets/files/org/patients-[email or web address] [email or web address]/[email or web address]-[email or web address]?la=en Advance Directives (non-Chadian) FORMS: [email or web address]/information/nlcpupm-ngmhuysdd-[email or web address]/tyson nce-directives#forms-tab Please bring completed forms to your next appointment or email them to [email or web address]. Patient Resources How to Get Started Talking with Loved Ones about your Wishes at the End of Life [email or web address]/wp-content/uploads//ConversationProjec h-SzoedYlsxsnxEbf-Qpkyyov.pdf How to Navigate Conversations with your Care Team around your Preferences [email or web address] documented in this encounterLima Memorial Hospital04-27-2023 History of Present illness Narrative* Erwin Garcia MD - 03/13/2023 8:35 AM EDT This note was created using [employer]. Subjective Hollie Cullen is a 72 year old male. His lipids were elevating. Glucose was stable. CKD was worsening. He still had residual LUTS. Tamsulosin in the past caused leg cramps. He sees dermatology in [facility] every 6 months. His colonoscopy is due later this year. Review of Systems Constitutional: Negative for appetite change, fatigue, fever and unexpected weight change. HENT: Negative. Eyes: Negative for visual disturbance. Respiratory: Negative for cough, shortness of breath and wheezing. Cardiovascular: Negative for chest pain, palpitations and leg swelling. Gastrointestinal: Negative for abdominal pain, blood in stool, constipation and diarrhea. Genitourinary: Positive for decreased urine volume. Negative for difficulty urinating and dysuria. Musculoskeletal: Negative. Skin: Sees dermatology every 6 months. Neurological: Negative for dizziness and headaches. Psychiatric/Behavioral: Negative for dysphoric mood. ACTIVE PROBLEM LIST Benign Neoplasm of Colon Tobacco Use Disorder Chronic Rhinitis Congenital Atrophy of Kidney Hyperlipidemia Skin Cancer of Scalp CKD (chronic kidney disease) stage 3, GFR 30-59 ml/min (HCC) Impaired Fasting Glucose Obesity, Class I, Bmi 30-34.9 Bph With Obstruction/Lower Urinary Tract Symptoms Current Outpatient Medications Medication Sig dutasteride (AVODART) 0.5 mg capsule Take 1 capsule by mouth once daily. montelukast (SINGULAIR) 10 mg tablet Take 1 tablet by mouth daily at bedtime. For allergies. imiquimod (ALDARA) 5 % cream Apply 1 application to affected area three times a week. triamcinolone acetonide (KENALOG) 0.1 % cream Apply 1 application to affected area twice daily as needed. forehead MULTIVITAMIN TAB Take one(1) tablet daily. simvastatin (ZOCOR) 40 mg tablet Take 1 tablet by mouth daily at bedtime. No current facility-administered medications for this visit. Objective BP 118/70 (BP Site: Left Arm, BP Position: Sitting, BP Cuff Size: Large Adult) Pulse 68 Resp 16 Ht 180.3 cm (5' 11) Wt 102.5 kg (226 lb) BMI 31.52 kg/m Physical Exam Constitutional: Appearance: He is not ill-appearing. Eyes: General: No scleral icterus. Conjunctiva/sclera: Conjunctivae normal. Cardiovascular: Rate and Rhythm: Normal rate and regular rhythm. Heart sounds: No murmur heard. No gallop. Pulmonary: Effort: Pulmonary effort is normal. Breath sounds: Normal breath sounds. Abdominal: Tenderness: There is no abdominal tenderness. Musculoskeletal: Right lower leg: No edema. Left lower leg: No edema. Neurological: Mental Status: He is alert. Gait: Gait normal. Component Latest Ref Rng & Units 02/17/2023 Protein, Total 6.3 - 8.0 g/dL 6.9 Albumin 3.9 - 4.9 g/dL 4.2 Calcium 8.5 - 10.2 mg/dL 9.5 Bilirubin, Total 0.2 - 1.3 mg/dL 0.3 Alkaline Phosphatase 38 - 113 U/L 73 AST 14 - 40 U/L 27 ALT 10 - 54 U/L 25 Glucose 74 - 99 mg/dL 110 (H) BUN 9 - 24 mg/dL 24 Creatinine 0.73 - 1.22 mg/dL 1.62 (H) Sodium 136 - 144 mmol/L 137 Potassium 3.7 - 5.1 mmol/L 4.5 Chloride 97 - 105 mmol/L 103 CO2 22 - 30 mmol/L 24 Anion Gap 9 - 18 mmol/L 10 eGFR >=60 mL/min/1.73m 45 (L) WBC 3.70 - 11.00 k/uL 6.06 RBC 4.20 - 6.00 m/uL 5.49 Hemoglobin 13.0 - 17.0 g/dL 15.6 Hematocrit 39.0 - 51.0 % 48.3 MCV 80.0 - 100.0 fL 88.0 MCH 26.0 - 34.0 pg 28.4 MCHC 30.5 - 36.0 g/dL 32.3 RDW-CV 11.5 - 15.0 % 13.9 Platelet Count 150 - 400 k/uL 202 MPV 9.0 - 12.7 fL 11.4 Absolute nRBC <0.01 k/uL <0.01 Cholesterol, Total <200 mg/dL 160 Triglyceride <150 mg/dL 143 HDL Cholesterol >39 mg/dL 38 (L) Non HDL Cholesterol <130 mg/dL 122 Fasting Time hrs 15 VLDL Cholesterol <30 mg/dL 29 TC:HDL Ratio <5.10 4.21 LDL Cholesterol <100 mg/dL 93 LDL:HDL Ratio <2.54 2.45 Hemoglobin A1C 4.3 - 5.6 % 5.9 (H) Estimated Average Glucose mg/dL 123 Assessment and Plan 1. Medicare annual wellness visit, subsequent - ICD9: V70.0, ICD10: Z00.00 (primary diagnosis) See wellness note. 2. Hyperlipidemia, unspecified hyperlipidemia type - ICD9: 272.4, ICD10: E78.5 - good control - Encouraged following a low fat, low cholesterol diet. - Encouraged following a low carbohydrate, healthy oil intake diet. - SIMVASTATIN 40 MG TABLET 3. Tobacco use disorder - ICD9: 305.1, ICD10: F17.200 - Cessation encouraged. - CONSULT LUNG CANCER SCREENING CLINIC 4. Stage 3a chronic kidney disease (HCC) - ICD9: 585.3, ICD10: N18.31 - eGFR: Worsening - Counseled on avoiding regular use of NSAIDs, adequate hydration, potential risk of IV dye - US KIDNEY/BLADDER 5. Impaired fasting glucose - ICD9: 790.21, ICD10: R73.01 Controlled. 6. BPH with obstruction/lower urinary tract symptoms - ICD9: 600.01, 599.69, ICD10: N40.1, N13.8 Check US. Consider alfuzosin. 7. Special screening for malignant neoplasms, colon - ICD9: V76.51, ICD10: Z12.11 - COLONOSCOPY SCREENING - PEG 3350 240 GRAM-ELECTROLYTES 22.72 GRAM-6.72 G-5.84 G POWDR FOR CORI Garcia MD [facility] OPEN ACCESS QUESTIONNAIRE 1. Are you currently having any new or unusual stomach/gastrointestinal issues at this time such asconstipation, diarrhea, abdominal pain, rectal bleeding etc?No 2. Do you have any difficulty swallowing? No 3. Do you have any implanted devices such as a defibrillator, pacemaker, cardiac stents or deep brain stimulator? No 4. Do you take any Blood thinners such as Coumadin, Plavix, Xarelto, Eliquis, Brilinta or any otherblood thinner? No 5. Do you have any new or past cardiac (heart) or pulmonary (lung) issues? No 6. Do you currently use any oxygen? No 7. Have you been hospitalized in the past 6 weeks? No 8. Have you had difficulty with anesthesia previously re: Difficult intubation? No Other difficulty or allergic reaction to anesthesia other than post op N/V? No 9. Are you on dialysis? No 10. Do you have any bleeding disorders such as hemophilia or Factor 5? No 11. Are you an Insulin Dependent Diabetic? No IF ANY OF THE TOP ELEVEN QUESTIONS ARE ANSWERED YES PLEASE SCHEDULE THE PATIENT FOR A CONSULT. N/A 12. Is the patient's BMI 40 or greater? No:Body mass index is 31.52 kg/m .. 13. Do you take any narcotics or anti-Anxiety medications? No 14. Do you use any illegal or recreational drugs including marijuana? No 15. Any alcohol use: YES: What type of alcohol, how much and how often do you drink? : 1-2 daily 16. Have you been diagnosed with chronic liver disease such as hepatitis or cirrhosis? No 17. Do you have a seizure disorder? No 18. Do you have ulcerative colitis or Crohn's disease? No 19. Are you or could you be ? NA 20. Any other important health information we should be made aware of prior to your colonoscopy? No To be completed by LIP: Did patient have MAC anesthesia with a previous endoscopy procedure? No Patient appropriate for Open Access Colonoscopy: Yes: appropriate for Open Access Procedure Checklist: Prior to closing the encounter: Complete questionnaire: Yes Confirm Prep order has been Ordered/Pended: Yes. Patient's procedure could be delayed if not given the script for the prep. Please ensure the prep is escripted to pharmacy or printed. Instructions for the prep will print upon filing or pending thissmartset. Please send all open access questionnaires to [facility] Pool #[id number] * Erwin Garcia MD - 03/13/2023 8:20 AM EDT Hollie Cullen is a 72 year old male here for a Medicare Subsequent Annual Wellness Visit Health Risk Assessment In general, health is: Good Concerns with balance:Several days Concerns with teeth or dentures:Not at all Concerns with sexual function:Not at all [place] anxious, stressed, angry, irritable, lonely, isolated, or had thoughts of hurting themself: Not at all Has little interest or pleasure in doing things: Not at all Bothered by feeling down, depressed, or hopeless: Not at all Needs help with grocery shopping, cooking, housework, bathing, grooming, dressing, eating, sitting or standing, walking, using the toilet, handling finances, taking medications, using the telephone, or driving: No Following safety precautions in the home environment and vehicle: removed throw rugs from floors, installed grab bars in the bathroom, handrails in stairwells, having adequate lighting, wearing seatbelt at all times?: Yes Smokes cigarettes, vapes, or chew tobacco: Yes, but I'm not ready to quit Eats healthy foods including fruits, vegetables, whole grains, and fiber-rich foods: Nearly every day Number of days per week engages in exercise: 7 days Average alcohol consumption: 4 or more times a week Current Providers Specialists: I have reviewed specialist-related care of the patient in the medical record. Current care team: Patient Care Team: Erwin Garcia MD as PCP - General (Internal Medicine) Outside specialists seen: Dr. Stark, dermatology, [place]. Hatch, optometry, [place]. Medical/Family history review Reviewed and updated problem list, medical/surgical/family/social history, medications, and allergies. Opioid use review Patient is not currently using opioids. Depression screening Depression Screening PHQ-2 Score 03/08/2022 0 Depression screening tool completed and reviewed. Based on score and interview, patient is not at risk for depression. Screening tool discussed with patient, and I recommended no further interventionat this time. Cognitive screening Mini Cog Score: declined. Functional Observation Was the patient's timed Up & Go test unsteady or ? 12 seconds? No Advance Care Planning End of Life planning discussed, including patient's advanced directive wishes: Yes Measurements BP 118/70 Pulse 68 Resp 16 Ht 5' 11 (1.80m) Wt 226 lb (102.5kg) BMI 31.53 kg/(m^2). Visual acuity (required for Welcome to Medicare): follows with optometry/ophthalmology Hearing Evaluation: some loss of high pitch. Assessment/Plan - Counseled on healthy diet and regular exercise - Discussed need for and benefit of weight loss. BMI 31.52 kg/(m^2) - Smoking cessation counseling - Fall avoidance - Colorectal cancer screening recommended - agrees to Colonoscopy - Lung cancer screening with low-dose CT - Depression screening - Alcohol misuse screening and counseling [facility] Miscellaneous Notes* Telephone Encounter - Diane Lebron Pss - 01/02/2023 1:34 PM EST Patient mail order is out of [facility] Patient has been identified by name and date of : Yes Requested Prescriptions Pending Prescriptions Disp Refills simvastatin (ZOCOR) 40 mg tablet 90 tablet 0 Sig: Take 1 tablet by mouth daily at bedtime. RX INSTRUCTIONS: Patient aware RX will be sent to pharmacy. No need to notify patient. Diane Barker documented in this encounterL[facility]02-06-2023 Miscellaneous Notes* Telephone Encounter - Linda Gray LPN - 12/23/2022 12:12 PM EST PATIENT's NOTIFIED OF SAME. * Telephone Encounter - Khadijah Cramer APRN.CNP - 12/23/2022 11:56 AM EST Fasting labs ordered Khadijah Cramer APRN.CNP * Telephone Encounter - Iris Jo LPN - 12/23/2022 11:14 AM EST Patient has upcoming appointment in February and is requesting lab order to do prior to appointment. documented in this encounterL[facility]02-[facility]23 Miscellaneous Notes* Telephone Encounter - Iris Jo LPN - 12/23/2022 11:13 AM EST Last OV 03/08/22 Next OV 03/13/23 * Telephone Encounter - Mala Barker - 12/23/2022 9:43 AM EST Please note: dutasteride goes to [facility]; other 2 scripts go to [facility]. * Telephone Encounter - Mala Barker - 12/23/2022 9:42 AM EST Patient has been identified by name and date of : Yes Requested Prescriptions Pending Prescriptions Disp Refills dutasteride (AVODART) 0.5 mg capsule 90 capsule 3 Sig: Take 1 capsule by mouth once daily. montelukast (SINGULAIR) 10 mg tablet 90 tablet 3 Sig: Take 1 tablet by mouth daily at bedtime. For allergies. simvastatin (ZOCOR) 40 mg tablet 90 tablet 3 Sig: Take 1 tablet by mouth daily at bedtime. RX INSTRUCTIONS: Patient aware RX will be sent to pharmacy. No need to notify patient. Patient aware RX escripted to mail away pharmacy. No need to notify patient. Mala Schultz Pss documented in [facility] encounterL[facility]02-[facility]23 Evaluation note* Diagnosis Hyperlipidemia, unspecified hyperlipidemia type- Primary Impaired fasting glucose Stage 3a chronic kidney disease (HCC) documented [facility] Miscellaneous Notes* Telephone Encounter - Roopa Pugh LPN - 04/05/2022 8:16 AM EDT Patient notified.Roopa Pugh LPN * Telephone Encounter - Aaron Schmitz MD - 04/05/2022 8:01 AM EDT COVID test was positive. Stay home for 5 days from symptom onset. If you have no symptoms or your symptoms are resolving after 5 days, you can leave your house. Continue to wear a mask around others for 5 additional days. If you have a fever, continue to stay home until your fever resolves. Close contacts should quarantine. Treat with supportive care. F/u with worsening symptoms; ER if severe. documented in this encounterLima [facility]05-19-2022 Instructions* Patient Instructions* Madeline Saucedo APRN.RIGHT OF WAY AGENT - 04/04/2022 10:55 AM EDT covid test ordered You will be notified in 24 -48 hours, results available on [facility] Home isolation until covid results are back Rest, increase water intake Motrin or Tylenol as needed for fever or pain. Salt water gargles, chloraseptic spray or lozenges as needed for sore throat. Warm beverages, honey. Nasal saline spray as needed Cool mist humidifier at night Tylenol (generic acetaminophen) 500 mg-2 tabs every 8 hrs. as needed for fever and aches Ibuprofen 600 mg (3-200mg tablets) every 6 hours Continue allergy meds * Seek medical care immediately, call 911, go to ER if you have chest pain, difficulty breathing, shortness of breath, inability to swallow. documented in this encounterLima [facility]05-19-2022 History of Present illness Narrative* Madeline Saucedo APRN.CNP - 04/04/2022 10:51 AM EDT Subjective The history is provided by the patient. No pediatric speech language pathologist was used. HPI Hollie Cullen is a 71 year old male who presents today for CC of cough, congestion, and scratchy throat. His tested postive for covid on Friday. He has used his allergy meds, but states he doesn't feel bad. Just getting tested due to who has a h/o pancrease and kidney transplant. H/o smoking, CKD, htn BP 118/62 Pulse 97 Temp 36.3 C (97.3 F) Resp 21 Wt 101.2 kg (223 lb 3.2 oz) SpO2 96% BMI 31.13 kg/m Social History Tobacco Use Smoking status: Current Every Day Smoker Packs/day: 0.50 Years: 42.00 Pack years: 21.00 Types: Cigarettes, Pipe Smokeless tobacco: Never Used Substance Use Topics Alcohol use: Yes Alcohol/week: 30.0 standard drinks Types: 12 Cans of Beer (12oz) per week Comment: 1-2 beers daily Drug use: No PAST MEDICAL HISTORY Diagnosis Date Benign neoplasm of colon 04/20/2008 Colon 07-25: hems with no polpys-rec 5 year follow up Chronic rhinitis 04/20/2008 Saline and Claritin in 04-24 with decreasing tobacco use Good response to the Claritin as of 05-24 CKD (chronic kidney disease) stage 2, GFR 60-89 ml/min 07/27/2016 CKD (chronic kidney disease) stage 3, GFR 30-59 ml/min (HCC) 08/03/2018 Congenital atrophy of kidney 09/06/2008 US 08-24 shows atrophic R kidney (5 cm) and a cyst on the R CT Abd 09-24: Cystic structure on R 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 HENT: Positive for congestion and sore throat. Negative for ear pain and sinus pain. Respiratory: Positive for cough. Negative for sputum production, shortness of breath and wheezing. Cardiovascular: Negative for chest pain. Gastrointestinal: Negative for abdominal pain, diarrhea, nausea and vomiting. Musculoskeletal: Negative for myalgias. Neurological: Negative for headaches. Objective Physical Exam Vitals and nursing note reviewed. HENT: Head: Normocephalic and atraumatic. Right Ear: Tympanic membrane, ear canal and external ear normal. Left Ear: Tympanic membrane, ear canal and external ear normal. Nose: Mucosal edema, congestion and rhinorrhea present. Right Sinus: No maxillary sinus tenderness or frontal sinus tenderness. Left Sinus: No maxillary sinus tenderness or frontal sinus tenderness. Mouth/Throat: Pharynx: Uvula midline. Posterior oropharyngeal erythema (mild) present. No oropharyngeal exudate. Tonsils: No tonsillar abscesses. Cardiovascular: Rate and Rhythm: Normal rate and regular rhythm. Heart sounds: Normal heart sounds. Pulmonary: Effort: Pulmonary effort is normal. Breath sounds: Wheezing (occasional expiratory wheeze upper airways) present. No decreased breath sounds, rhonchi or rales. Lymphadenopathy: Head: Right side of head: No submental, submandibular, tonsillar or preauricular adenopathy. Left side of head: No submental, submandibular, tonsillar or preauricular adenopathy. Cervical: No cervical adenopathy. Right cervical: No superficial cervical adenopathy. Left cervical: No superficial cervical adenopathy. ASSESSMENT/PLAN: 1. Exposure to COVID-19 virus - ICD9: V01.79, ICD10: Z20.822 (primary diagnosis) - COVID WITH FLUA+B, ROUTINE 2. Upper respiratory symptom - ICD9: 786.9, ICD10: R09.89 Home isolation Testing ordered Comfort measures discussed - see patient instructions. When to seek higher level of care Notified in 24-48 hours with results, [facility] Continue prescribed medications Diagnosis and treatment plan were discussed and questions were answered to the patient's satisfaction. Pt acknowledged understanding of concepts and follow up plan. Specific signs and symptoms that would indicate the need for higher level of care were discussed indetail warranting prompt ER evaluation. Madeline Saucedo APRN.YONIS documented in this encounterLima [facility] Hospital04-22-2022 History of Present illness Narrative* Khadijah Cramer APRN.CNP - 03/08/2022 2:03 PM EDT CC: Patient presents with: F/U 6 months HPI Hollie Cullen is a 71 year old male who presents today for above. He was last seen in August 2021. Started on Flomax for LUTS however developed side effects and was discontinued. Replaced with Avodart. Patient reports some improvement in symptoms, now only getting up a couple times a night to urinate instead of hourly. Denies side effects. Taking Singulair for allergies which are well controlled. Hyperlipidemia controlled with Zocor, no side effects. REVIEW OF SYSTEMS General: no fevers, no chills, no night sweats and no change in energy Respiratory: no cough, no wheezing, no shortness of breath Cardiovascular: no chest pain, no chest pressure, no palpitations and no swelling PAST MEDICAL HISTORY Diagnosis Date Benign neoplasm of colon 04/20/2008 Colon 07-25: hems with no polpys-rec 5 year follow up Chronic rhinitis 04/20/2008 Saline and Claritin in 04-24 with decreasing tobacco use Good response to the Claritin as of 05-24 CKD (chronic kidney disease) stage 2, GFR 60-89 ml/min 07/27/2016 CKD (chronic kidney disease) stage 3, GFR 30-59 ml/min (HCC) 08/03/2018 Congenital atrophy of kidney 09/06/2008 US 10-08 shows atrophic R kidney (5 cm) and a cyst on the R CT Abd 11-08: 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 MEDICATIONS dutasteride (AVODART) 0.5 mg capsule Take 1 capsule by mouth once daily. simvastatin (ZOCOR) 40 mg tablet Take 1 tablet by mouth daily at bedtime. montelukast (SINGULAIR) 10 mg tablet Take 1 tablet by mouth daily at bedtime. For allergies. imiquimod (ALDARA) 5 % cream Apply 1 application to affected area three times a week. triamcinolone acetonide (KENALOG) 0.1 % cream Apply 1 application to affected area twice daily as needed. forehead MULTIVITAMIN TAB Take one(1) tablet daily. FAMILY HISTORY Problem Relation Age of Onset Diabetes Mother Cancer Mother uterine Cancer Father lung Obesity Sister Cancer Sister Obesity Sister Cancer Brother pancreatic cancer Colon Cancer Brother Cancer Brother None Brother None Brother None Brother Social History Tobacco Use Smoking status: Current Every Day Smoker Packs/day: 0.50 Years: 42.00 Pack years: 21.00 Types: Cigarettes, Pipe Smokeless tobacco: Never Used Substance Use Topics Alcohol use: Yes Alcohol/week: 30.0 standard drinks Types: 12 Cans of Beer (12oz) per week Comment: 1-2 beers daily Drug use: No PHYSICAL EXAM BP 116/76 Pulse 74 Resp 12 Wt 102.1 kg (225 lb) SpO2 95% BMI 31.38 kg/m General Appearance: well appearing, in no acute distress, alert Lungs: Lungs clear to auscultation. No wheezing, rhonchi, rales. Heart: RRR without murmur, gallop, or rubs. No ectopy Health maintenance reviewed with patient: DEPRESSION SCREENING due on 08/04/2020 ADVANCE DIRECTIVE DISCUSSION Never done ANNUAL PCP TEAM CHRONIC DISEASE VISIT due on 08/28/2022 SERUM CREATININE due on 02/26/2023 HEMOGLOBIN/HEMATOCRIT due on 02/26/2023 COLORECTAL CANCER SCREENING due on 08/19/2023 DIABETES SCREEN due on 02/26/2025 LIPID SCREEN due on 02/26/2027 DTAP,TDAP,TD(2 - Td or Tdap) due on 04/04/2027 ABDOMINAL AORTIC ANEURYSM SCREENING Completed INFLUENZA Completed HEPATITIS C SCREENING Completed PNEUMOVAX AGE 65 AND OVER WITH 5YR LOOKBACK Completed SHINGRIX VACCINE Completed COVID-19 VACCINE Completed MENINGOCOCCAL CONJUGATE Aged Out DATA REVIEWED: Most recent labs Component Latest Ref Rng & Units 02/26/2022 WBC 3.70 - 11.00 k/uL 6.45 RBC 4.20 - 6.00 m/uL 5.37 Hemoglobin 13.0 - 17.0 g/dL 14.9 Hematocrit 39.0 - 51.0 % 45.8 MCV 80.0 - 100.0 fL 85.3 MCH 26.0 - 34.0 pg 27.7 MCHC 30.5 - 36.0 g/dL 32.5 RDW-CV 11.5 - 15.0 % 14.1 Platelet Count 150 - 400 k/uL 194 MPV 9.0 - 12.7 fL 10.8 Absolute nRBC <0.01 k/uL <0.01 Glucose 74 - 99 mg/dL 99 BUN 9 - 24 mg/dL 19 Creatinine 0.73 - 1.22 mg/dL 1.50 (H) Sodium 136 - 144 mmol/L 140 Potassium 3.7 - 5.1 mmol/L 4.4 Chloride 97 - 105 mmol/L 104 CO2 22 - 30 mmol/L 27 Anion Gap 9 - 18 mmol/L 9 Calcium 8.5 - 10.2 mg/dL 9.6 eGFR >=60 mL/min/1.73m 50 (L) Cholesterol, Total <200 mg/dL 151 Triglyceride <150 mg/dL 165 (H) HDL Cholesterol >39 mg/dL 38 (L) Non HDL Cholesterol <130 mg/dL 113 Fasting Time hrs 12 VLDL Cholesterol <30 mg/dL 33 (H) TC:HDL Ratio <5.10 3.97 LDL Cholesterol <100 mg/dL 80 LDL:HDL Ratio <2.54 2.11 Hemoglobin A1C 4.3 - 5.6 % 6.0 (H) Estimated Average Glucose mg/dL 126 ASSESSMENT/PLAN: 1. BPH with obstruction/lower urinary tract symptoms - ICD9: 600.01, 599.69, ICD10: N40.1, N13.8 (primary diagnosis) Improved with Avodart 2. Stage 3a chronic kidney disease (HCC) - ICD9: 585.3, ICD10: N18.31 Stable 3. Hyperlipidemia, unspecified hyperlipidemia type - ICD9: 272.4, ICD10: E78.5 - good control - Continue current medication. 4. Impaired fasting glucose - ICD9: 790.21, ICD10: R73.01 Stable 5. Obesity, Class I, BMI 30-34.9 - ICD9: 278.00, ICD10: E66.9 Weight increasing Prescription instructions reviewed with patient as applicable. Potential red flag symptoms discussed with the patient. Reviewed appropriate action plan to take if red flag symptoms occur. Patient agreeable to treatment plan. Khadijah Cramer APRN.CNP [facility] of Past illness Narrative* Problem Noted Date Resolved Date Microscopic hematuria 10/04/2008 07/18/2016 Overview: Recommended Urology referral in 09-24: pipe tobacco, findings on CT See Urology note from 10-24: no further studies recommended Overweight(278.02) 04/20/2008 09/20/2015 Overview: Plans to change his amounts as of 04-24: laughed about using a plant based protein diet documented as of this encounter (statuses as of 03/08/2022) [facility] of Past illness Narrative* Problem Noted Date Resolved Date Microscopic hematuria 10/04/2008 07/18/2016 Overview: Recommended Urology referral in 09-24: pipe tobacco, findings on CT See Urology note from 10-24: no further studies recommended Overweight(278.02) 04/20/2008 09/20/2015 Overview: Plans to change his amounts as of 04-24: laughed about using a plant based protein diet documented as of this encounter (statuses as of 04/04/2022) [facility] of Past illness Narrative* Problem Noted Date Resolved Date Microscopic hematuria 10/04/2008 07/18/2016 Overview: Recommended Urology referral in 09-24: pipe tobacco, findings on CT See Urology note from 10-24: no further studies recommended Overweight(278.02) 04/20/2008 09/20/2015 Overview: Plans to change his amounts as of 04-24: laughed about using a plant based protein diet documented as of this encounter (statuses as of 04/05/2022) [place] [address]-18-2008 History of Past illness Narrative* Problem Noted Date Resolved Date Microscopic hematuria 10/04/2008 07/18/2016 Overview: Recommended Urology referral in 09-24: pipe tobacco, findings on CT See Urology note from 10-24: no further studies recommended Overweight(278.02) 04/20/2008 09/20/2015 Overview: Plans to change his amounts as of 04-24: laughed about using a plant based protein diet documented as of this encounter (statuses as of 12/23/2022) [facility] of Past illness Narrative* Problem Noted Date Resolved Date Microscopic hematuria 10/04/2008 07/18/2016 Overview: Recommended Urology referral in 09-24: pipe tobacco, findings on CT See Urology note from 10-24: no further studies recommended Overweight(278.02) 04/20/2008 09/20/2015 Overview: Plans to change his amounts as of 04-24: laughed about using a plant based protein diet documented as of this encounter (statuses as of 12/23/2022) [facility] History of Past illness Narrative* Problem Noted Date Resolved Date Microscopic hematuria 10/04/2008 07/18/2016 Overview: Recommended Urology referral in 09-24: pipe tobacco, findings on CT See Urology note from 10-24: no further studies recommended Overweight(278.02) 04/20/2008 09/20/2015 Overview: Plans to change his amounts as of 04-24: laughed about using a plant based protein diet documented as of this encounter (statuses as of 01/03/2023) [facility] of Past illness Narrative* Problem Noted Date Resolved Date Microscopic hematuria 10/04/2008 07/18/2016 Overview: Recommended Urology referral in 09-24: pipe tobacco, findings on CT See Urology note from 10-24: no further studies recommended Overweight(278.02) 04/20/2008 09/20/2015 Overview: Plans to change his amounts as of 04-24: laughed about using a plant based protein diet documented as of this encounter (statuses as of 03/13/2023) [facility] of Past illness Narrative* Problem Noted Date Diagnosed Date Resolved Date Microscopic hematuria 10/04/20082015 Overview: Recommended Urology referral in 09-24: pipe tobacco, findings on CT See Urology note from 10-24: no further studies recommended Overweight(278.02) 04/20/2008 5 Overview: Plans to change his amounts as of 04-24: laughed about using a plant based protein diet documented as of this encounter (statuses as of 05/29/2023) [facility] of Past illness Narrative* Problem Noted Date Diagnosed Date Resolved Date Microscopic hematuria 10/04/20082015 Overview: Recommended Urology referral in 09-24: pipe tobacco, findings on CT See Urology note from 10-24: no further studies recommended Overweight(278.02) 04/20/2008 5 Overview: Plans to change his amounts as of 04-24: laughed about using a plant based protein diet documented as of this encounter (statuses as of 06/01/2023) [facility] of [facility] illness Narrative* Problem Noted Date Diagnosed Date Resolved Date Microscopic hematuria 10/04/20082015 Overview: Recommended Urology referral in 09-24: pipe tobacco, findings on CT See Urology note from 10-24: no further studies recommended Overweight(278.02) 04/20/2008 5 Overview: Plans to change his amounts as of 04-24: laughed about using a plant based protein diet documented as of this encounter (statuses as of 06/03/2023) [facility] of Past illness Narrative* Problem Noted Date Diagnosed Date Resolved Date Microscopic hematuria 10/04/20082015 Overview: Recommended Urology referral in 09-24: pipe tobacco, findings on CT See Urology note from 10-24: no further studies recommended Overweight(278.02) 04/20/2008 5 Overview: Plans to change his amounts as of 04-24: laughed about using a plant based protein diet documented as of this encounter (statuses as of 06/13/2023) [facility] illness Narrative* Problem Noted Date Diagnosed Date Resolved Date Microscopic hematuria 10/04/20082015 Overview: Recommended Urology referral in 09-24: pipe tobacco, findings on CT See Urology note from 10-24: no further studies recommended Overweight(278.02) 04/20/2008 5 Overview: Plans to change his amounts as of 04-24: laughed about using a plant based protein diet documented as of this encounter (statuses as of 07/25/2023) [facility] of [facility] illness Narrative* Problem Noted Date Diagnosed Date Resolved Date Microscopic hematuria 10/04/20082015 Overview: Recommended Urology referral in 09-24: pipe tobacco, findings on CT See Urology note from 10-24: no further studies recommended Overweight(278.02) 04/20/2008 5 Overview: Plans to change his amounts as of 04-24: laughed about using a plant based protein diet documented as of this encounter (statuses as of 12/23/2023) [facility] illness Narrative* Problem Noted Date Diagnosed Date Resolved Date Microscopic hematuria 10/04/20082015 Overview: Recommended Urology referral in 09-24: pipe tobacco, findings on CT See Urology note from 10-24: no further studies recommended Overweight(278.02) 04/20/2008 5 Overview: Plans to change his amounts as of 04-24: laughed about using a plant based protein diet documented as of this encounter (statuses as of 01/13/2024) [facility] of [facility] illness Narrative* Problem Noted Date Diagnosed Date Resolved Date Microscopic hematuria 10/04/20082015 Overview: Recommended Urology referral in 09-24: pipe tobacco, findings on CT See Urology note from 10-24: no further studies recommended Overweight(278.02) 04/20/2008 5 Overview: Plans to change his amounts as of 04-24: laughed about using a plant based protein diet documented as of this encounter (statuses as of 01/14/2024) [facility] Author Elana Richmond [facility] Note Date/Time January 31, 2025 5:1 7pm [facility] Medical Records Department [address] [place] [address] Consultation - Surgical 01/31/25 1647 MR#: [id number] Acct: [id number] Name: HOLLIE CULLEN Rep #:[id number] : 1950 74 From: Elana Richmond MD PCP: Dr. Erwin Garcia MD Status:R EG ER Location: ED Assessment & Plan Assessment/Plan (1) Gallstones: (2) Bloating symptom: (3) Kidney atrophy: PLAN: Plan Pt symptoms were bloating and fit with gastritic etiology more than gallstones. Patient CT abdomen pelvis does show questionable haziness around the gallbladderhowever patient's white blood count is normal, no change in LFTs patient does have some gallstones. Patient has been able to eat fatty greasy foods without any issues and then usually his issues have come on at night after laying down. Describes as a bloating sensation denies any real pain. Will have patient startomeprazole 40 mg p.o. daily as well as Pepcid first 2 to 3 days and have him follow-up in office in 1 week with me. Also advised low-fat diet until follow- up. Patient is are agreeable to plan. Patient CT abdomen pelvis also shows severe hydronephrosis. Patient states he has an atrophic right kidney that is about the size of a walnut. However did not have previous imaging here unsure why he would have severe hydronephrosis ofthe ureter and have a smaller bladder if there is not some sort of blockage. Patient's UA also appears to have a UTI. Urine culture was ordered by the ER doctor physician. Recommend getting previous CT a/p to compare the right kidney.?Addendum: CT abdomen pelvis 2017 patient did have hydronephrosis at thattime as well not quite as severe. Deferred to urology. Elana Richmond M.D. Pager: [phone] [facility] [address] [place] [address], [facility], [address] [place] [id number] Office: [phone] HPI Consult Data Date of Consult: 01/31/25 HPI Narrative HPI Narrative: HOLLIE CULLEN, is a 74 M who presents to the ER due to abdominal bloating. Patient states this happened 2 or 3 times last happened last night after eating some trail bologna and cheese states has been an hour after having a snack before bed and laying down they had abdominal bloating could not get comfortable. Patient had this previously at night as well. Patient has been able to eat peanuts and other fatty foods without any issues previously-even forsupper last night. Patient denies any nausea or vomiting. Patient does have history of atrophy of the right kidney and states it was the size of a walnut noprevious abdominal imaging here. Patient currently denies any abdominal pain states he did have some dysuria after he gave a urine sample in the ER but then went again and did not have any. Patient has a normal white blood cell count at7.6, no shift, normal LFTs, creatinine 1.42, patient's UA does have 500 leukoesterase, 0-5 squamous and 3+ bacteria. Patient states that he had seen previously seen Dr. Romero for the hydronephrosis and there was nothing to do atthat time. [facility] Medical History (Updated 01/31/25 @ 17:[address] Elana Richmond MD) Hyperlipemia Kidney disease Home Medications ?Medication ?Instructions ?Recorded ?Last Taken ?Type multivitamin with folic acid 400 1 tab PO DAILY Unknown History mcg tablet (Thera) ciprofloxacin HCl 500 mg tablet 500 mg PO BID 7 days # 14 TABLETS 01/31/25 Unknown Rx dutasteride 0.5 mg capsule 0.5 mg PO DAILY 01/31/25 Un known History montelukast 10 mg tablet 10 mg PO QHS allergies 01/31 Unknown History omeprazole 40 mg capsule,delayed 40 mg PO DAILY #30 ca ps 01/31/25 Unknown Rx release simvastatin 40 mg tablet 40 mg PO QHS 01/31/25 Unknow n History Allergy/AdvReac Type Severity Reaction Status Date / Time No Known Allergies Allergy Verified 01/31/25 10:07 Surgical History (Updated 01/31/25 @ 16:[address] Elana Richmond MD) Hx of laparoscopy Status post appendectomy Social History Smoking Status: Light Smoker (<10/day) ROS Constitutional Constitutional: Reports anorexia ENT HEENT: Denies dysphagia Cardiovascular Cardiovascular: Denies chest pain Respiratory/Chest Respiratory/Chest: Denies cough Gastrointestinal Gastrointestinal: Reports bloating; Denies abdominal pain, constipation, diarrhea, nausea or vomiting Genitourinary Genitourinary: Reports dysuria Integumentary Integumentary: Denies jaundice Psychiatric Psychiatric: Denies anxiety or depression Endocrine Endocrinology: Denies palpitations Hematologic/Lymphatic Hematologic/Lymphatic: Denies easy bleeding Physical Exam Const alert, oriented x3 and no apparent distress HEENT normocephalic and head/scalp atraumatic Resp normal respiratory effort Cardio regular rate GI soft to palpation and non-tender; Negative for non-distended Palpation: Negative for guarding Extremity no clubbing, cyanosis or edema Skin no rashes or lesions noted Neuro CN's II-XII intact bilaterally Psych mental status grossly normal Lab / Micro Data 01/31/25 10:55 01/31/25 10:55 Labs: Laboratory Results - last 24 hr 01/31/25 10:55: WBC 7.6, RBC 5.17, Hgb 14.7, Hct 43.8, MCV 84.7, MCH 28.4, MCHC 33.6, RDW Std Deviation 41.7, RDW Coeff of Mildred 13.4, Plt Count 188, MPV 10.3, Immature Gran % (Auto) 0.100, Neut % (Auto) 70.8 H, Lymph % (Auto) 16.0 L, [place] % (Auto) 10.8 H, Eos % (Auto) 1.8, Baso % (Auto) 0.5, Absolute Neuts (auto) 5.4,Absolute Lymphs (auto) 1.21, Nucleated RBC % 0, Sodium 138, Potassium 4.5, Chloride 105, Carbon Dioxide 26.2, Anion Gap 7, BUN 19, Creatinine 1.42 H, EstimCreat Clear Calc 57.85, Est GFR (MDRD) Non-Af 53 L, BUN/Creatinine Ratio 13.1, Glucose 116 H, Calcium 9.3, Total Bilirubin 0.27, AST 20, ALT 22, Alkaline Phosphatase 80, Total Protein 6.6, Albumin 4.0, Globulin 2.6, Albumin/Globulin Ratio 1.5, Lipase 31 01/31/25 11:05: Urine Color Yellow, Urine Clarity Cloudy, Urine pH 6.0, Ur Specific [place] 1.015, Urine Protein 15 H, Urine Glucose (UA) Normal, Urine Ketones Negative, Urine Occult Blood 25 H, Urine Nitrite Negative, Urine Bilirubin Negative, Urine Urobilinogen Normal, Ur Leukocyte Esterase 500 H, Urine RBC 5-10 SEEN, Urine WBC 50-100 SEEN, Ur Squamous Epith Cells 0-5 SEEN, Urine Bacteria 3+, Urine Mucus 0 SEEN Imaging Radiology Impression Abdomen/Pelvis CT 01/31/25 10:37 IMPRESSION: Multiple small gallstones more prominent and neck of the gallbladder with mild thickening of the gallbladder wall and pericholecystic fluid. Multiple cystic structures are seen in the right kidney with the minimal residual parenchymal tissue suggestive of chronic marked degree of right hydronephrosis with right hydroureter down to the level of the right ureterovesical junction where there is irregular thickening and enlargement of the prostate more prominent on the rightside. Findings suggestive of possible polypoid lesion at the base of the bladder more prominent on the right side. Diffuse bladder wall thickening. Reading Location: [facility] Abdomen Ultrasound 01/31/25 13:15 IMPRESSION: Sludge and gallstones seen within the gallbladder lumen with evidence of gallbladder wall thickening and pericholecystic fluid. Acute cholecystitis should be ruled out. Abnormal appearance of the right kidney as described. Fatty infiltration of the liver. Hepatomegaly. Reading Location: [facility] Charges/Coding Multi Select Codes Visit Charges Office Visit/Consults: 80852 OP Consult L4 01/31/25 1717 <Electronically signed by Elana Richmond MD> Cosigner Signature (if applicable): CC: Dr. Erwin Garcia MD~ Signed [facility] Work Phone: Evaluation note* Diagnosis BPH with obstruction/lower urinary tract symptoms- Primary Hypertrophy of prostate with urinary obstruction and other lower urinary tract symptoms (LUTS) Stage 3a chronic kidney disease (HCC) Hyperlipidemia, unspecified hyperlipidemia type Impaired fasting glucose Obesity, Class I, BMI 30-34.9 Obesity, unspecified [facility] Diagnosis Exposure to COVID-19 virus- Primary Upper respiratory symptom Other symptoms involving respiratory system and chest [facility]* Diagnosis BPH with obstruction/lower urinary tract symptoms Hypertrophy of prostate with urinary obstruction and other lower urinary tract symptoms (LUTS) Chronic rhinitis Hyperlipidemia, unspecified hyperlipidemia type [facility]* Diagnosis Hyperlipidemia, unspecified hyperlipidemia type [facility]* Diagnosis Medicare annual wellness visit, subsequent- Primary Routine general medical examination at a health care facility Hyperlipidemia, unspecified hyperlipidemia type Tobacco use disorder Stage 3a chronic kidney disease (HCC) Impaired fasting glucose BPH with obstruction/lower urinary tract symptoms Hypertrophy of prostate with urinary obstruction and other lower urinary tract symptoms (LUTS) Special screening for malignant neoplasms, colon [facility]* Diagnosis Encounter for screening for lung cancer- Primary Tobacco use current documented [facility]* Diagnosis Hydroureteronephrosis- Primary Hydronephrosis Stage 3a chronic kidney disease (HCC) [facility]* Diagnosis Encounter for screening for lung cancer- Primary Tobacco use current [facility]* Diagnosis Chronic rhinitis documented [facility] noteNo assessment information availableWProMedica [facility] Work Phone: Evaluation note* Diagnosis BPH with obstruction/lower urinary tract symptoms Hypertrophy of prostate with urinary obstruction and other lower urinary tract symptoms (LUTS) Chronic rhinitis documented in this encounter [facility] note* Diagnosis Injury of right knee, initial encounter- Primary documented in this encounter [facility] Work Phone: evaluation note* Diagnosis Injury of right knee, initial encounter documented in this encounter [facility] Work Phone: Evaluation note* Diagnosis Acute pain of right knee- Primary [facility]* Diagnosis Acute pain of right knee- Primary documented in this encounter [facility] note* Diagnosis Stage 3a chronic kidney disease (HCC)- Primary Hyperlipidemia, unspecified hyperlipidemia type Impaired fasting glucose documented in this encounter [facility] note* Diagnosis Medicare annual wellness visit, subsequent- Primary Routine general medical examination at a health care facility Hyperlipidemia, unspecified hyperlipidemia type Stage 3a chronic kidney disease (HCC) Impaired fasting glucose Benign neoplasm of colon, unspecified part of colon Need for COVID-19 vaccine [facility]* Diagnosis Multiple lung nodules- Primary Other nonspecific abnormal finding of lung field Encounter for screening for lung cancer Tobacco use current documented in this encounter [facility] note* Diagnosis Encounter for screening for lung cancer Tobacco use current documented in this encounter [facility] note* Diagnosis Chronic rhinitis documented in this encounter [facility] note* Diagnosis BPH with obstruction/lower urinary tract symptoms Hypertrophy of prostate with urinary obstruction and other lower urinary tract symptoms (LUTS) documented in this encounter [facility] note* Diagnosis Hyperlipidemia, unspecified hyperlipidemia type documented in this encounter [facility] note* Diagnosis Medicare annual wellness visit, subsequent- Primary Routine general medical examination at a health care facility Encounter for screening examination for other mental health and behavioral disorders Screening for depression Impaired fasting glucose Hyperlipidemia, unspecified hyperlipidemia type Tobacco use disorder Stage 3a chronic kidney disease (HCC) BPH with obstruction/lower urinary tract symptoms Hypertrophy of prostate with urinary obstruction and other lower urinary tract symptoms (LUTS) Obesity, Class I, BMI 30-34.9 Obesity, unspecified Chronic rhinitis Personal history of skin cancer Personal history of other malignant neoplasm of skin Calculus of gallbladder without cholecystitis without obstruction Calculus of gallbladder without mention of cholecystitis or obstruction documented in this encounter [facility] note* Diagnosis Calculus of gallbladder without cholecystitis without obstruction- Primary Biliary colic Calculus of gallbladder without mention of cholecystitis or obstruction documented in this encounter [facility] Work Phone: Reason for referral (narrative)* Outpatient Procedure (Routine) - Pending Review Specialty Diagnoses / Procedures Referred By Contac t Referred To Contact [facility] Diagnoses Special screening for malignant neoplasms, colon Procedures COLONOSCOPY SCREENING COLONOSCOPY FLX DX W/COLLJ SPEC WHEN PFRMD Erwin Garcia MD [address] [place] [address] [facility] [place] [address] [place] [address] Referral ID Status Reason Start Date Expiration Date Visits Requested Visits Authorized [id number] Pending Review Auto-Generat ed Referral 03/13/2023 03/13/2024 1 1 * Diagnostic Procedure Only (Routine) - Authorized Specialty Diagnoses / Procedures Referred By Contac t Referred To Contact [facility] Diagnoses Stage 3a chronic kidney disease (HCC) Procedures US KIDNEY/BLADDER US RETROPERITONEAL REAL TIME W/[place] [address] [place] [id number] [facility] Referral ID Status Reason Start Date Expiration Date Visits Requested Visits Authorized [id number] Authorized Auto-Generat ed Referral 03/13/2023 04/11/2024 1 1 [facility] for referral (narrative)No reason for referral information availableWProMedica [facility] Work Phone: Advance Directives No Advanced Directives Records FoundDocuments on File Type Date Recorded Patient Sales Leader Expl anation Advance Directive(s) 08/19/2018 7:57 AM Advance Directive Response Recorded Date/ Time Living Will No June 12, 2015 11:32am Power of Export Freight Clerk No June 12 11:32am Advance Directive Response Recorded Date/ Time Living Will No January 31, 2025 10:30am Power of Export Freight Clerk No January 31 10:30am Advance Directive Response Recorded Date/ Time Living Will No January 31, 2025 10:30am Do you have a Healthcare Power of Export Freight Clerk? No January 31, 2025 10:30am Living Will No February 25, 2025 11:29am Do you have a Healthcare Power of Export Freight Clerk? No February 25, 2025 11:29am Health Concerns Infection Onset Date Last Indicated Resolved Time COVID-19 Rule-Out 04/04/2022 04/04/2022 Infection Onset Date Last Indicated Resolved Time COVID-19 Confirmed 04/04/2022 04/04/2022 Summary Purpose Family History No Family History Records Found Relationship Condition Age at Onset Recorded Date/T conner mother Diabetes mellitus Unknown brother Diabetes mellitus Unknown Malignant neoplasm of colon Unknown Reason for Referral Specialty Diagnoses / Procedures Referred By Contac t Referred To Contact CT IMAGING Diagnoses Encounter for screening for lung cancer Tobacco use current Procedures CT LUNG SCREEN WO IVCON COMPUTED TOMOGRAPHY THORAX LW DOSE LNG CA SCR Hernandez- Isael Lebron, CARPET YARN WINDER OPERATOR.RIGHT OF WAY AGENT [address] [place] [place] [address] Ct Imaging Referral ID Status Reason Start Date Expiration Date Visits Requested Visits Authorized [id number] Authorized Auto-Generat ed Referral 05/28/2023 06/26/2024 1 1 Specialty Diagnoses / Procedures Referred By Contac t Referred To Contact Urology Diagnoses Hydroureteronephrosis Stage 3a chronic kidney disease (HCC) Procedures CONSULT TO UROLOGY OFFICE/OUTPATIENT [facility] MDM 60-74 MINUTES Erwin Garcia MD [address] [place] [address] Referral ID Status Reason Start Date Expiration Date Visits Requested Visits Authorized [id number] Authorized PCP Requested Referral 05/31/2023 05/30/2024 1 1 Referral ID Status Reason Start Date Expiration Date Visits Requested Visits Authorized [id number] Pending Review Auto-Generat ed Referral 06/13/2024 07/12/2024 1 1 Specialty Diagnoses / Procedures Referred By Contac t Referred To Contact Radiology Diagnoses Injury of right knee, initial encounter Procedures XR knee right 3 views Trell Goldman, CARPET YARN WINDER OPERATOR-RIGHT OF WAY AGENT [address] [place] [address] Referral ID Status Reason Start Date Expiration Date Visits Requested Visits Authorized [id number] Authorized Perform Procedure 01/01/2024 12/31/2024 1 1 Specialty Diagnoses / Procedures Referred By Contac t Referred To Contact Orthopedics Diagnoses Acute pain of right knee Procedures CONSULT TO ORTHOPAEDICS OFFICE/OUTPATIENT CR[facility]ICAL [facility]ESS [facility] MDM 60 MINUTES Elisha Velásquez, CARPET YARN WINDER OPERATOR.WORM GROWER [address] [place] [address] Referral ID Status Reason Start Date Expiration Date Visits Requested Visits Authorized [id number] Authorized PCP Requested Referral 01/13/2024 01/12/2025 1 1 Specialty Diagnoses / Procedures Referred By Contac t Referred To Contact Diagnoses Acute pain of right knee Elisha Velásquez, CARPET YARN WINDER OPERATOR.WORM GROWER [address] [place] [address] Referral ID Status Reason Start Date Expiration Date Visits Re quested Visits Authorized [id number] Closed 1 1 Specialty Diagnoses / Procedures Referred By Contac t Referred To Contact CT IMAGING Diagnoses Encounter for screening for lung cancer Tobacco use current Procedures CT LUNG SCREEN WO IVCON COMPUTED TOMOGRAPHY THORAX LW DOSE LNG CA SCR Hernandez- Isael Lebron, CARPET YARN WINDER OPERATOR.RIGHT OF WAY AGENT [address] [place] [address] [place] [address] Referral ID Status Reason Start Date Expiration Date Visits Requested Visits Authorized [id number] Authorized Auto-Generat ed Referral 06/14/2024 07/14/2025 1 1 Chief Complaint and Reason for Visit Chief Complaint Admit Date ABD PAIN January 31, 2025 10: 03am ABD PAIN January 31, 2025 4:4 7pm Chief Complaint Admit Date ABD PAIN January 31, 2025 10: 03am ABD PAIN January 31, 2025 4:4 7pm ED F/U - February 07, 2025 9:2 5am 1 WK GALLBLADDER CHECK February 14, 2025 1:33pm PREOP February 15, 2025 8:56 am Laparoscopic, Robotic, Nephrectomy, Uret erectomy February 25, 2025 9:52am Reason for Visit Admit Date Bloating symptom February 07, 2025 9:2 5am Gallstones February 07, 2025 9:2 5am Kidney atrophy February 07, 2025 9:2 5am Bloating symptom February 14, 2025 1:3 3pm Gallstones February 14, 2025 1:3 3pm Kidney atrophy February 14, 2025 1:3 3pm Additional Source Comments Source Comments (unrecognize d section and content) In the event this informatio n is protected by the Federal Confidentiality of Alcohol and Drug Abuse Patient Records regulations: The Federal rules restrict any use of the information to criminally investigate or prosecute any alcohol or drug abuse patient.[facility] the event this information is protected by the Federal Confidentiality of Alcohol and Drug Abuse Patient Records regulations: The Federal rules restrict any use of the information to criminally investigate or prosecute any alcohol or drug abuse patient.[facility]In the event this information is protected by the Federal Confidentiality of Alcohol and Drug Abuse Patient Records regulations: The Federal rules restrict any use of the information to criminally investigate or prosecute any alcohol or drug abuse patient.[facility] the event this information is protected by the Federal Confidentiality of Alcohol and Drug Abuse Patient Records regulations: The Federal rules restrict any use of the information to criminally investigate or prosecute any alcohol or drug abuse patient.[facility] the event this information is protected by the Federal Confidentiality of Alcohol and Drug Abuse Patient Records regulations: The Federal rules restrict any use of the information to criminally investigate or prosecute any alcohol or drug abuse patient.[facility] the event this information is protected by the Federal Confidentiality of Alcohol and Drug Abuse Patient Records regulations: The Federal rules restrict any use of the information to criminally investigate or prosecute any alcohol or drug abuse patient.[facility] the event this information is protected by the Federal Confidentiality of Alcohol and Drug Abuse Patient Records regulations: The Federal rules restrict any use of the information to criminally investigate or prosecute any alcohol or drug abuse patient.[facility] the event this information is protected by the Federal Confidentiality of Alcohol and Drug Abuse Patient Records regulations: The Federal rules restrict any use of the information to criminally investigate or prosecute any alcohol or drug abuse patient.[facility] the event this information is protected by the Federal Confidentiality of Alcohol and Drug Abuse Patient Records regulations: The Federal rules restrict any use of the information to criminally investigate or prosecute any alcohol or drug abuse patient.[facility]In the event this information is protected by the Federal Confidentiality of Alcohol and Drug Abuse Patient Records regulations: The Federal rules restrict any use of the information to criminally investigate or prosecute any alcohol or drug abuse patient.[facility] HospitalIn the event this information is protected by the Federal Confidentiality of Alcohol and Drug Abuse Patient Records regulations: The Federal rules restrict any use of the information to criminally investigate or prosecute any alcohol or drug abuse patient.[facility]In the event this information is protected by the Federal Confidentiality of Alcohol and Drug Abuse Patient Records regulations: The Federal rules restrict any use of the information to criminally investigate or prosecute any alcohol or drug abuse patient.[facility] HospitalIn the event this information is protected by the Federal Confidentiality of Alcohol and Drug Abuse Patient Records regulations: The Federal rules restrict any use of the information to criminally investigate or prosecute any alcohol or drug abuse patient.[facility] the event this information is protected by the Federal Confidentiality of Alcohol and Drug Abuse Patient Records regulations: The Federal rules restrict any use of the information to criminally investigate or prosecute any alcohol or drug abuse patient.[facility]In the event this information is protected by the Federal Confidentiality of Alcohol and Drug Abuse Patient Records regulations: The Federal rules restrict any use of the information to criminally investigate or prosecute any alcohol or drug abuse patient.[facility]In the event this information is protected by the Federal Confidentiality of Alcohol and Drug Abuse Patient Records regulations: The Federal rules restrict any use of the information to criminally investigate or prosecute any alcohol or drug abuse patient.[facility] HospitalIn the event this information is protected by the Federal Confidentiality of Alcohol and Drug Abuse Patient Records regulations: The Federal rules restrict any use of the information to criminally investigate or prosecute any alcohol or drug abuse patient.[facility] HospitalIn the event this information is protected by the Federal Confidentiality of Alcohol and Drug Abuse Patient Records regulations: The Federal rules restrict any use of the information to criminally investigate or prosecute any alcohol or drug abuse patient.[facility]In the event this information is protected by the Federal Confidentiality of Alcohol and Drug Abuse Patient Records regulations: The Federal rules restrict any use of the information to criminally investigate or prosecute any alcohol or drug abuse patient.[facility] HospitalIn the event this information is protected by the Federal Confidentiality of Alcohol and Drug Abuse Patient Records regulations: The Federal rules restrict any use of the information to criminally investigate or prosecute any alcohol or drug abuse patient.[facility] HospitalIn the event this information is protected by the Federal Confidentiality of Alcohol and Drug Abuse Patient Records regulations: The Federal rules restrict any use of the information to criminally investigate or prosecute any alcohol or drug abuse patient.[facility]In the event this information is protected by the Federal Confidentiality of Alcohol and Drug Abuse Patient Records regulations: The Federal rules restrict any use of the information to criminally investigate or prosecute any alcohol or drug abuse patient.[facility] HospitalIn the event this information is protected by the Federal Confidentiality of Alcohol and Drug Abuse Patient Records regulations: The Federal rules restrict any use of the information to criminally investigate or prosecute any alcohol or drug abuse patient.[facility]In the event this information is protected by the Federal Confidentiality of Alcohol and Drug Abuse Patient Records regulations: The Federal rules restrict any use of the information to criminally investigate or prosecute any alcohol or drug abuse patient.[facility]In the event this information is protected by the Federal Confidentiality of Alcohol and Drug Abuse Patient Records regulations: The Federal rules restrict any use of the information to criminally investigate or prosecute any alcohol or drug abuse patient.[facility] HospitalIn the event this information is protected by the Federal Confidentiality of Alcohol and Drug Abuse Patient Records regulations: The Federal rules restrict any use of the information to criminally investigate or prosecute any alcohol or drug abuse patient.[facility] Reason for Visit (unrecogniz ed section and content) Reason Comments F/U 6 months Reason Comments Nasal Congestion cough, scratchy thro at x 2 days Reason Comments Results COVID+ Reason Onset Date Comments Refill Request 12/23/2022 Reason Comments Orders Reason Comments Refill Request Reason Comments Medicare Wellness Exam Reason Comments New Patient LCS Reason Comments Results Reason Comments Results Reason Onset Date Comments Refill Request 07/25/2023 Reason Onset Date Comments Refill Request 12/22/2023 Reason Comments Knee Pain Rt knee pain x 2 wee ks. No known injuries or prior issues Specialty Diagnoses / Procedures Referred By Contac t Referred To Contact Radiology Diagnoses Injury of right knee, initial encounter Procedures XR knee right 3 views Trell Goldman, CARPET YARN WINDER OPERATOR-RIGHT OF WAY AGENT [address] [id number] Referral ID Status Reason Start Date Expiration Date Visits Requested Visits Authorized [id number] Authorized Perform Procedure 01/01/2024 12/31/2024 1 1 Reason Comments Knee Pain Dx arthritis in R kn ee Reason Comments Lab Orders Reason Comments Medicare Wellness Exam Follow Up Reason Comments Established Patient LCS/CT follow up Specialty Diagnoses / Procedures Referred By Contac t Referred To Contact CT IMAGING Diagnoses Encounter for screening for lung cancer Tobacco use current Procedures CT LUNG SCREEN WO IVCON COMPUTED TOMOGRAPHY THORAX LW DOSE LNG CA SCR C- LoomisIsael henderson, CARPET YARN WINDER OPERATOR.RIGHT OF WAY AGENT [address] [place] [address] [address] [facility] [place] [address] Referral ID Status Reason Start Date Expiration Date V isits Requested Visits Authorized [id number] Closed Auto-Generate d Referral 06/13/2024 07/12/2024 [address] Specialty Diagnoses / [facility] Diagnoses Encounter for screening for lung cancer Tobacco use current Procedures CT LUNG SCREEN WO IVCON COMPUTED TOMOGRAPHY THORAX LW DOSE LNG CA SCR C- Isael Lebron, CARPET YARN WINDER OPERATOR.RIGHT OF WAY AGENT [address] [place] [address] Ct Imaging [id number] Reason Comments Patient Question Reason Onset Date Comments Refill Request 07/08/2024 Reason Onset Date Comments Refill Request 10/25/2024 Reason Comments Abdominal Pain Reason Onset Date Comments Refill Request 03/02/2025 Reason Comments Medicare Wellness Exam Reason Comments Chest Pain Midsternal CP starte d approx 15-20mins [employer], c/o SOB. While watching tv, took 1 nitro at home with no relief Care Teams (unrecognized sec tion and content) Senior Lead Developer Relationship Specialty Start Date End Date Erwin Garcia MD [address] [facility] [place] [address] PCP - General Internal Medicine 07/18/16 Senior Lead Developer Relationship Specialty Start Date End Date Erwin Garcia MD [address] [facility] [place] [address] PCP - General Internal Medicine 07/18/16 Senior Lead Developer Relationship Specialty Start Date End Date Erwin Garcia MD [address] [place] [address] PCP - General Internal Medicine 07/18/16 Senior Lead Developer Relationship Specialty Start Date End Date Erwin Gracia MD [address] [facility] [place] [address] PCP - General Internal Medicine 07/18/16 Senior Lead Developer Relationship Specialty Start Date End Date Erwin Garcia MD [address] [facility] [place] [address] PCP - General Internal Medicine 07/18/16 Senior Lead Developer Relationship Specialty Start Date End Date Erwin Garcia MD [address] [facility] [place] [address] PCP - General Internal Medicine 07/18/16 Senior Lead Developer Relationship Specialty Start Date End Date Erwin Garcia MD [address] [place] [address] PCP - General Internal Medicine 07/18/16 Senior Lead Developer Relationship Specialty Start Date End Date Erwin Garcia MD [address] [place] [address] PCP - General Internal Medicine 07/18/16 Senior Lead Developer Relationship Specialty Start Date End Date Erwin Garcia MD [address] [facility] [place] [address] PCP - General Internal Medicine 07/18/16 Senior Lead Developer Relationship Specialty Start Date End Date Erwin Garcia MD [address] [facility] [place] [address] PCP - General Internal Medicine 07/18/16 Senior Lead Developer Relationship Specialty Start Date End Date Erwin Garcia MD [address] [facility] [place] [address] PCP - General Internal Medicine 07/18/16 Team Status: Active Member Role Status Dates Dr. Loreto Champagne MD Family Provider Active Dr. Loreto Champagne MD Primary Care Provider Active Team Status: Inactive Member Role Status Dates Dr. Loreto Champagne MD Primary Care Provider Active Milagros Clark Attending Provider, Referring Provide r Active Senior Lead Developer Relationship Specialty Start Date End Date Erwin Garcia MD [address] [facility] [place] [address] PCP - General Internal Medicine 07/18/16 Senior Lead Developer Relationship Specialty Start Date End Date Erwin Garcia MD [address] [facility] [place] [address] PCP - General Internal Medicine 01/01/24 Senior Lead Developer Relationship Specialty Start Date End Date Erwin Garcia MD [address] [facility] [place] [address] PCP - General Internal Medicine 07/18/16 Senior Lead Developer Relationship Specialty Start Date End Date Erwin Garcia MD [address] [facility] [place] [address] PCP - General Internal Medicine 07/18/16 Senior Lead Developer Relationship Specialty Start Date End Date Erwin Garcia MD [address] [facility] [place] [address] PCP - General Internal Medicine 07/18/16 Senior Lead Developer Relationship Specialty Start Date End Date Erwin Garcia MD [address] [place] [address] PCP - General Internal Medicine 07/18/16 Senior Lead Developer Relationship Specialty Start Date End Date Erwin Garcia MD [address] [place] [address] PCP - General Internal Medicine 07/18/16 Senior Lead Developer Relationship Specialty Start Date End Date Erwin Garcia MD [address] [place] [address] PCP - General Internal Medicine 07/18/16 Senior Lead Developer Relationship Specialty Start Date End Date Erwin Garcia MD [address] [place] [address] PCP - General Internal Medicine 07/18/16 Senior Lead Developer Relationship Specialty Start Date End Date Erwin Garcia MD [address] [place] [address] PCP - General Internal Medicine 07/18/16 Khadijah Raman, CARPET YARN WINDER OPERATOR.RIGHT OF WAY AGENT [address] [place] [address] [facility] Internal Medicine 10/25/24 Senior Lead Developer Relationship Specialty Start Date End Date Erwin Garcia MD [address] [place] [address] PCP - General Internal Medicine 07/18/16 Khadijah Raman, CARPET YARN WINDER OPERATOR.RIGHT OF WAY AGENT [address] [place] [address] [facility] Internal Medicine 10/25/24 Team Status: Active Member Role Status Dates Dr. Erwin Garcia MD Primary Care Provider Active Team Status: Inactive Member Role Status Dates Dr. Rashi Lee DO Emergency Provider Active Start: January 31, 2025 End: January 31, 2025 Dr. Erwin Garcia MD Primary Care Provider Active Start: January 31, 2025 End: January 31, 2025 Team Status: Active Member Role Status Dates Dr. Rashi Lee DO Emergency Provider Active Start: January 31, 2025 Dr. Erwin Garcia MD Primary Care Provider Active Start: January 31, 2025 Dr. Elana Richmond MD Attending Provider Active Start: January 31, 2025 Team Status: Inactive Member Role Status Dates Dr. Rashi Lee DO Attending Provider Active Start: January 31, 2025 End: January 31, 2025 Dr. Rashi Lee DO Emergency Provider Active Start: January 31, 2025 End: January 31, 2025 Dr. Erwin Garcia MD Primary Care Provider Active Start: January 31, 2025 End: January 31, 2025 Team Status: Active Member Role Status Dates Dr. Rashi Lee DO Referring Provider Active Start: January 31, 2025 Dr. Rashi Lee DO Emergency Provider Active Start: January 31, 2025 Dr. Erwin Garcia MD Primary Care Provider Active Start: January 31, 2025 Dr. Elana Richmond MD Attending Provider Active Start: January 31, 2025 Team Status: Inactive Member Role Status Dates Dr. Erwin Garcia MD Primary Care Provider Active Start: February 07, 2025 End: February 07, 2025 Dr. Erwin Garcia MD Referring Provider Active Start: February 07, 2025 End: February 07, 2025 Dr. Elana Richmond MD Attending Provider Active Start: February 07, 2025 End: February 07, 2025 Team Status: Inactive Member Role Status Dates Dr. Erwin Garcia MD Primary Care Provider Active Start: February 14, 2025 End: February 14, 2025 Dr. Erwin Garcia MD Referring Provider Active Start: February 14, 2025 End: February 14, 2025 Dr. Elana Richmond MD Attending Provider Active Start: February 14, 2025 End: February 14, 2025 Team Status: Active Member Role Status Dates Dr. Erwin Garcia MD Primary Care Provider Active Start: February 15, 2025 End: February 15, 2025 Dr. Migel Meléndez MD Attending Provider Active S tart: February 15, 2025 End: February 15, 2025 Dr. Los Romero MD Referring Provider Active Start: February 15, 2025 End: February 15, 2025 Team Status: Inactive Member Role Status Dates Dr. Erwin Garcai MD Primary Care Provider Active Start: February 25, 2025 End: February 27, 2025 Dr. Los Romero MD Admit Provider Active Start: February 25, 2025 End: February 27, 2025 Dr. Los Romero MD Attending Provider Active Start: February 25, 2025 End: February 27, 2025 Dr. Los Romero MD Referring Provider Active Start: February 25, 2025 End: February 27, 2025 Senior Lead Developer Relationship Specialty Start Date End Date Erwin Garcia MD [address] [place], [place] [address] PCP - General Internal Medicine 07/18/16 Khadijah Raman, CARPET YARN WINDER OPERATOR.RIGHT OF WAY AGENT [address] [place] [address] Fire Extinguisher Tester Internal Medicine 10/25/24 Senior Lead Developer Relationship Specialty Start Date End Date Erwin Garcia MD [address] [place], [place] [address] PCP - General Internal Medicine 07/18/16 Khadijah Raman, CARPET YARN WINDER OPERATOR.RIGHT OF WAY AGENT [address] [place], [place] [address] Fire Extinguisher Tester Internal Medicine 10/25/24 Senior Lead Developer Relationship Specialty Start Date End Date Erwin Garcia MD [address] [place], [place] [address] PCP - General Internal Medicine 01/01/24 (unrecognized sect ion and content) No Status Records FoundNo Status Records FoundNo Status Records FoundNo Status Records Found INFORMATION SOURCE (unrecogn ized section and content) DATE CREATED AUTHOR 11/13/2022 [facility] DATE CREATED AUTHOR AUTHOR'S ORGANIZ ATION 03/16/2025 [facility] DATE CREATED AUTHOR AUTHOR'S ORGANIZ ATION 03/23/2025 [facility] DATE CREATED AUTHOR AUTHOR'S ORGANIZ ATION 04/25/2025 [facility] Goals (unrecognized section and content) Goals may be documented in a n alternate sectionGoals may be documented in an alternate section Scheduled Active and Recently Administ ered Medications (unrecognized section and content) Medication Order 04/22/2025 04/23/2025 04/24/2025 aspirin chewable tablet 324 mg (COMPLETED) 324 mg, oral, Once, On 04/23/25 at 2220, For 1 dose 223 (Given - Provider: Gloria Cardona RN) prochlorperazine (Compazine) injection 5 mg (COMPLETED) 5 mg, intravenous, Once, On 04/23/25 at 2250, For 1 dose 2255 (Given - Provider: Gloria Cardona RN) sodium chloride 0.9 % bolus 1,000 mL (COMPLETED) 1,000 mL, intravenous, at 999 mL/hr, Administer over 1 Hours, Once, On 04/23/25 at 2325, For 1 dose 2347 (New Bag - Provider: Gloria Cardona, RN) 0104 (Stopped - Provider: Gloria Cardona, RN) PRN Medication Order 04/22/2025 04/23/2025 04/24/2025 nitroglycerin (Nitrostat) SL tablet 0.4 mg 0.4 mg, sublingual, Every 5 min PRN, chest pain, Starting on 04/23/25 at 2218, For 3 doses, May administer up to 3 doses per episode. FOR RECORDS PERTAINING TO PATIENTS WHO ARE OR HAVE BEEN ENROLLED IN A CHEMICAL DEPENDENCY/SUBSTANCEABUSE PROGRAM, SOME INFORMATION MAY BE OMITTED. This clinical summary was aggregated from multiple sources. Caution should be exercised in using it in the provision of clinical care. This summary normalizes information from multiple sources, and as a consequence, information in this document may materially change the coding, format and clinical context of patient data. In addition, data may be omitted in some cases. CLINICAL DECISIONS SHOULD BE BASED ON THE PRIMARY CLINICAL RECORDS. The Original [employer] [facility]. provides no warranty or guarantee of the accuracy or completeness of information in this document.
--- OUTSIDE RECORDS SUMMARY | 2025-04-26 00:24 | XMS RPT_ITS | CCD ---
Author Organization [facility] Care Team Providers Care Material Inspector Name Role Phone Erwin Garcia MD Primary Care Provider Ms. Trell Goldman Attending Sam otero Pending, Provider Primary Care Unavailable Erwin Garcia MD Primary Care Provider Erwin Garcia MD Primary Care Provider Erwin Garcia MD Primary Care Provider [phone] Lamine APRN.TELETYPE OPERATOR, Khadijah M Unavailable Dr. Rashi Lee DO Emergency Provider Jose CLARKE, Dr. Hood Primary Care Provider Dr. Elana Richmond MD Attending Provider Dr. Rashi Lee DO Attending Provider Dr. Rashi Lee DO Referring Provider Jose CLARKE, Dr. Hood Referring Provider Rika CLARKE, Dr. Lainez Attending Provider Nick CLARKE, Dr. Los Pfeiffer Referring Provider [phone] Nick CLARKE, Dr. Los Pfeiffer Admit Provider Nick CLARKE, Dr. Los Pfeiffer Attending Provider [phone] Erwin Garcia Primary Care Unavailable Erwin Garcia [...] Comment on above: Take 1 tablet by [facility] every 6 hours as needed for pain for up to 3 days. dutasteride 0.5 mg oral capsule (20 sources) 5-alpha Reductase Inhibitor Start: 01-28-2022 End: 10-25-2024 take 1 capsule by mouth once daily dutasteride (Avodart) 0.5 mg capsule Take 1 capsule (0.5 mg) by mouth once daily. 12/22/2023 Active Comment on above: Take 1 capsule by [facility] once daily. ammonium lactate 120 mg/ml topical [...] 14 February 25, 2025 polyethylene glycol 3350 [id number] mg / potassium chloride 2980 mg / sodium bicarbonate 6720 mg / sodium chloride 5840 mg / sodium sulfate 88159 mg powder for oral solution (1 source) [...] Comment on above: Take 1 capsule by [facility] two times a day as needed for [...] Remy Ernst 04/24/2025 12:23 AM Dictation workstation: [id number] Interpreted By: Remy Ernst, STUDY: CT ABDOMEN PELVIS WO IV CONTRAST; 04/23/2025 11:43 pm INDICATION: Signs/Symptoms:Nausea vomiting, elevated LFTs. COMPARISON: CT abdomen and pelvis dated 01/25/2014 ACCESSION NUMBER(S): [id number] ORDERING CLINICIAN: JUSTINA KIM TECHNIQUE: CT of [...] abdomen and pelvis dated 01/25/2014 ACCESSION NUMBER(S): [id number] ORDERING CLINICIAN: JUSTINA KIM TECHNIQUE: CT of [...] Remy Ernst 04/24/2025 12:23 AM Dictation workstation: [id number] [facility] Work Phone: CT Abdomen WO contrastOrdere d By: Remy Ernst on 04-24-2025 [facility] Work Phone: Tropinin I.cardiac panel Hig h sensitivity methodon 04-24-2025 Interpretation and review of laboratory results Normal [facility] Less than 99th percentile of normal range [...] performed using a different testing methodology at [facility] than at other [facility]. Direct result comparisons should only be made within the same method. [facility] Troponin, High Sensitivity, 1 Houron 04-24-2025 Tropinin I.cardiac panel High sensitivity method 5 ng/L 0 - 20 ng/L [facility] APTTon 04-23-2025 aPTT Coag (PPP) [Time] 31 s Un [facility] Basic metabolic 2000 panelon 04-23-2025 Anion gap [Moles/Vol] 10 mmol/L 10 - 2 0 mmol/L [facility] Calcium [Mass/Vol] 9.3 mg/dL 8.6 - 10. 3 mg/dL [facility] Chloride [Moles/Vol] 106 mmol/L 98 - 10 7 mmol/L [facility] CO2 [Moles/Vol] 27 mmol/L 21 - 32 mmol/L [facility] Creatinine [Mass/Vol] 1.42 mg/dL High 0.50 - 1.30 mg/dL [facility] GFR/1.73 sq M.predicted among non-blacks MDRD (S/P/Bld) [Vol rate/Area] 53 mL/min/{1.73_m2} Low - PINF [facility] Comment on above: Calculations of gayatri mated GFR are performed using the 2020 CKD-EPI Study Refit equation without the race variable for the IDMS-Traceable creatinine methods. https://jasn.asnjournals.org/content/early//ASN.50502 27178 Glucose [Mass/Vol] 121 mg/dL High 74 - 99 mg/dL [facility] Interpretation and review of laboratory results Abnormal [facility] Potassium [Moles/Vol] 3.8 mmol/L 3.5 - 5.3 mmol/L [facility] Sodium [Moles/Vol] 139 mmol/L 136 - 145 mmol/L [facility] Urea nitrogen [Mass/Vol] 22 mg/dL 6 - 23 mg/dL [facility] Anion gap [Moles/Vol] 10 mmol/L Normal 10-20 [facility] Comment on above: Performed By: #### 2 4321-2 #### ELLEN MAHAJAN ([id number]) [facility] ([facility]) [facility] [place] [address] Calcium [Mass/Vol] 9.3 mg/dL Normal 8.6-10.3 [facility] Comment on above: Performed By: #### 2 4321-2 #### ELLEN MAHAJAN ([id number]) [facility] ([facility]) [address] [place] [address] Chloride [Moles/Vol] 106 mmol/L Normal 98-107 [facility] Comment on above: Performed By: #### 2 4321-2 #### ELLEN MAHAJAN ([id number]) [facility] ([facility]) [facility] [place] [address] CO2 [Moles/Vol] 27 mmol/L Normal 21-32 [facility] Comment on above: Performed By: #### 2 4321-2 #### ELLEN MAHAJAN ([id number]) [facility] ([facility]) [address] [place] [address] Creatinine [Mass/Vol] 1.42 mg/dL High 0.50-1.30 [facility] Comment on above: Performed By: #### 2 4321-2 #### ELLEN MAHAJAN ([id number]) [facility] ([facility]) [address] [place] [address]25 Glomerular filtration rate/1.73 sq M.predicted 53 mL/min/1.73m*2 Low >60 [facility] Comment on above: Result Comment: Calc ulations of estimated GFR are performed using the 2020 CKD-EPI Study Refit equation without the race variable for the IDMS-Traceable creatinine methods. https://jasn.asnjournals.org/content/early/ASN.49122 67518 Performed By: #### 2 4321-2 #### ELLEN MAHAJAN ([id number]) [facility] ([facility]) [address] [place] [address] Glucose [Mass/Vol] 121 mg/dL High 74-99 [facility] Comment on above: Performed By: #### 2 4321-2 #### ELLEN MAHAJAN ([id number]) [facility] ([facility]) [address] [place] [address] Potassium [Moles/Vol] 3.8 mmol/L Normal 3.5-5.3 [facility] Comment on above: Performed By: #### 2 4321-2 #### ELLEN MAHAJAN ([id number]) [facility] ([facility]) [address] [place] [address]1599 Sodium [Moles/Vol] 139 mmol/L Normal 136-145 [facility] Comment on above: Performed By: #### 2 4321-2 #### ELLEN MAHAJAN ([id number]) [facility] ([facility]) [address] [place] [address] Urea nitrogen [Mass/Vol] 22 mg/dL Normal 6-23 [facility] Comment on above: Performed By: #### 2 4321-2 #### ELLEN MAHAJAN ([id number]) [facility] ([facility]) [address] [place] [address] CBC W Auto Differential pane l (Bld)on 04-23-2025 Basophils (Bld) [#/Vol] 0.02 10*3/uL [facility] Basophils/100 WBC (Bld) 0.3 % 0.0 - 2.0 % [facility] Eosinophils (Bld) [#/Vol] 0.12 10*3/uL [facility] Eosinophils/100 WBC (Bld) 1.9 % 0.0 - 6.0 % [facility] Erythrocyte distribution width (RBC) [Ratio] 13.6 % 11.5 - 14.5 % [facility] Hematocrit (Bld) [Volume fraction] 42 % 41.0 - 52.0 % [facility] Hemoglobin (Bld) [Mass/Vol] 13.8 g/dL 13.5 - 17.5 g/dL [facility] Immature granulocytes (Bld) [#/Vol] 0.01 10*3/uL [facility] Immature granulocytes/100 WBC (Bld) 0.2 % 0.0 - 0.9 % [facility] Comment on above: Immature Granulocyte Count (IG) includes promyelocytes, myelocytes and metamyelocytes but does not include bands. Percent differential counts (%) should be interpreted in the context of the absolute cell counts (cells/UL). Lymphocytes (Bld) [#/Vol] 2.04 10*3/uL [facility] Lymphocytes/100 WBC (Bld) 33 % 13.0 - 44.0 % [facility] MCH (RBC) [Entitic mass] 28.5 pg 26.0 - 34.0 pg [facility] MCHC (RBC) [Mass/Vol] 32.9 g/dL 32.0 - 36.0 g/dL [facility] MCV (RBC) [Entitic vol] 87 fL 80 - 100 fL [facility] Monocytes (Bld) [#/Vol] 0.7 10*3/uL [facility] Monocytes/100 WBC (Bld) 11.3 % 2.0 - 10.0 % [facility] Neutrophils (Bld) [#/Vol] 3.29 10*3/uL [facility] Comment on above: Percent differential counts (%) should be interpreted in the context of the absolute cell counts (cells/uL). Neutrophils/100 WBC (Bld) 53.3 % 40.0 - 80.0 % [facility] Nucleated RBC/100 WBC (Bld) [Ratio] 0 % [facility] Platelets (Bld) [#/Vol] 174 10*3/uL [facility] RBC (Bld) [#/Vol] 4.84 10*6/uL [facility] WBC (Bld) [#/Vol] 6.2 10*3/uL [facility] Basophils (Bld) [#/Vol] 0.02 x10*3/uL Normal 0.00-0.10 [facility] Comment on above: Performed By: #### 5 7021-8 #### ELLEN MAHAJAN ([id number]) [facility] ([facility]) [address] [place] [address] 58716 Basophils/100 WBC (Bld) 0.3 % Normal 0.0-2.0 [facility] Comment on above: Performed By: #### 5 7021-8 #### ELLEN MAHAJAN ([id number]) [facility] ([facility]) [address] [place] [address] 09318 Eosinophils (Bld) [#/Vol] 0.12 x10*3/uL Normal 0.00-0.40 [facility] Comment on above: Performed By: #### 5 7021-8 #### ELLEN MAHAJAN ([id number]) [facility] ([facility]) [address] [place] [address] 10116 Eosinophils/100 WBC (Bld) 1.9 % Normal 0.0-6.0 [facility] Comment on above: Performed By: #### 5 7021-8 #### ELLEN MAHAJAN ([id number]) [facility] ([facility]) [address] [place] [address]348 Erythrocyte distribution width (RBC) [Ratio] 13.6 % Normal 11.5-14.5 [facility] Comment on above: Performed By: #### 5 7021-8 #### ELLEN MAHAJAN ([id number]) [facility] ([facility]) [address] [place] [address] 17202 Hematocrit (Bld) [Volume fraction] 42.0 % Normal 41.0-52.0 [facility] Comment on above: Performed By: #### 5 7021-8 #### ELLEN MAHAJAN ([id number]) [facility] ([facility]) [address] [place] [address] 74007 Hemoglobin (Bld) [Mass/Vol] 13.8 g/dL Normal 13.5-17.5 [facility] Comment on above: Performed By: #### 5 7021-8 #### ELLEN MAHAJAN ([id number]) [facility] ([facility]) [address] [place] [address]32 Immature granulocytes (Bld) [#/Vol] 0.01 x10*3/uL Normal 0.00-0.50 [facility] Comment on above: Performed By: #### 5 7021-8 #### ELLEN MAHAJAN ([id number]) [facility] ([facility]) [address] [place] [address] 31192 Immature granulocytes/100 WBC (Bld) 0.2 % Normal 0.0-0.9 [facility] Comment on above: Result Comment: Lorin ture Granulocyte Count (IG) includes promyelocytes, myelocytes and metamyelocytes but does not include bands. Percent differential counts (%) should be interpreted in the context of the absolute cell counts (cells/UL). Performed By: #### 5 7021-8 #### ELLEN MAHAJAN ([id number]) [facility] ([facility]) [address] [place] [address]18 Lymphocytes (Bld) [#/Vol] 2.04 x10*3/uL Normal 0.80-3.00 [facility] Comment on above: Performed By: #### 5 7021-8 #### ELLEN MAHAJAN ([id number]) [facility] ([facility]) [address] [place] [address]00 Lymphocytes/100 WBC (Bld) 33.0 % Normal 13.0-44.0 [facility] Comment on above: Performed By: #### 5 7021-8 #### ELLEN MAHAJAN ([id number]) [facility] ([facility]) [address] [place] [address] 26937 MCH (RBC) [Entitic mass] 28.5 pg Normal 26.0-34.0 [facility] Comment on above: Performed By: #### 5 7021-8 #### ELLEN MAHAJAN ([id number]) [facility] ([facility]) [address] [place] [address] 96415 MCHC (RBC) [Mass/Vol] 32.9 g/dL Normal 32.0-36.0 [facility] Comment on above: Performed By: #### 5 7021-8 #### ELLEN MAHAJAN ([id number]) [facility] ([facility]) [address] [place] [address] 85135 MCV (RBC) [Entitic vol] 87 fL Normal 80-100 [facility] Comment on above: Performed By: #### 5 7021-8 #### ELLEN MAHAJAN ([id number]) [facility] ([facility]) [address] [place] [address] 51327 Monocytes (Bld) [#/Vol] 0.70 x10*3/uL Normal 0.05-0.80 [facility] Comment on above: Performed By: #### 5 7021-8 #### ELLEN MAHAJAN ([id number]) [facility] ([facility]) [address] [place] [address] 86653 Monocytes/100 WBC (Bld) 11.3 % Normal 2.0-10.0 [facility] Comment on above: Performed By: #### 5 7021-8 #### ELLEN MAHAJAN ([id number]) [facility] ([facility]) [address] [place] [address] 02762 Neutrophils (Bld) [#/Vol] 3.29 x10*3/uL Normal 1.60-5.50 [facility] Comment on above: Result Comment: Perc ent differential counts (%) should be interpreted in the context of the absolute cell counts (cells/uL). Performed By: #### 5 7021-8 #### ELLEN MAHAJAN ([id number]) [facility] ([facility]) [address] [place] [address] 16502 Neutrophils/100 WBC (Bld) 53.3 % Normal 40.0-80.0 [facility] Comment on above: Performed By: #### 5 7021-8 #### ELLEN MAHAJAN ([id number]) [facility] ([facility]) [address] [place] [address] Nucleated RBC/100 WBC (Bld) [Ratio] 0.0 /100 WBCs Normal 0.0-0.0 [facility] Comment on above: Performed By: #### 5 7021-8 #### ELLEN MAHAJAN ([id number]) [facility] ([facility]) [address] [place] [address] 71988 Platelets (Bld) [#/Vol] 174 x10*3/uL Normal 150-450 [facility] Comment on above: Performed By: #### 5 7021-8 #### ELLEN MAHAJAN ([id number]) [facility] ([facility]) [address] [place] [address] 82219 RBC (Bld) [#/Vol] 4.84 x10*6/uL Normal 4.50-5.90 [facility] Comment on above: Performed By: #### 5 7021-8 #### ELLEN MAHAJAN ([id number]) [facility] ([facility]) [address] [place], [place] [address] WBC (Bld) [#/Vol] 6.2 x10*3/uL Normal 4.4-11.3 [facility] Comment on above: Performed By: #### 5 7021-8 #### ELLEN MAHAJAN ([id number]) [facility] ([facility]) [address] [place], [place] [address] CT ABDOMEN PEL[facility] ABDOMEN PELVIS WO IV CONTRAST Interpreted By: Remy Ernst, STUDY: CT ABDOMEN PELVIS WO IV CONTRAST; 04/23/2025 11:43 pm INDICATION: Signs/Symptoms:Nausea vomiting, elevated LFTs. COMPARISON: CT abdomen and pelvis dated 01/25/2014 ACCESSION NUMBER(S): [id number] ORDERING CLINICIAN: JUSTINA KIM TECHNIQUE: CT of [...] Remy Ernst 04/24/2025 12:23 AM Dictation workstation: [id number] Normal [facility] CT Abdomen WO contraston Radiology Study observation (narrative) [facility] Work Phone: Coagulation surface inducedo n 04-23-2025 aPTT Coag (PPP) [Time] 31 s Normal 26-36 [facility] Comment on above: Order Comment: The A PTT is no longer used for monitoring Unfractionated Heparin Therapy. For monitoring Heparin Therapy, use the Heparin Assay. Performed By: #### 1 4979-9 #### HUGHES ZAINA ([id number]) [facility] ([facility]) [address] [place] [address] Coagulation tissue factor in ducedon 04-23-2025 PT Coag (PPP) [Time] 10.9 s Normal 9.8-12.4 [facility] Comment on above: Performed By: #### 5 902-2 #### ELLEN MAHAJAN ([id number]) [facility] ([facility]) [address] [place] [address] Hepatic function 2000 panelo n 04-23-2025 Albumin BCP dye [Mass/Vol] 4 g/dL 3.4 - 5.0 g/dL [facility] ALP [Catalytic activity/Vol] 83 U/L 33 - 136 U/L [facility] ALT With P-5'-P [Catalytic activity/Vol] 69 U/L High 10 - 52 U/L [facility] Comment on above: Patients treated wit h Sulfasalazine may generate falsely decreased results for ALT. AST With P-5'-P [Catalytic activity/Vol] 113 U/L High 9 - 39 U/L [facility] Bilirubin [Mass/Vol] 0.3 mg/dL 0.0 - 1 .2 mg/dL [facility] Bilirubin.direct [Mass/Vol] 0.1 mg/dL 0.0 - 0.3 mg/dL [facility] Interpretation and review of laboratory results Abnormal [facility] Protein [Mass/Vol] 6.4 g/dL 6.4 - 8.2 g/dL [facility] Albumin BCP dye [Mass/Vol] 4.0 g/dL Normal 3.4-5.0 [facility] Comment on above: Performed By: #### 2 4325-3 #### ELLEN MAHAJAN ([id number]) [facility] ([facility]) [address] [place] [address] ALP [Catalytic activity/Vol] 83 U/L Normal 33-136 [facility] Comment on above: Performed By: #### 2 4325-3 #### ELLEN MAHAJAN ([id number]) [facility] ([facility]) [address] [place] [address] ALT With P-5'-P [Catalytic activity/Vol] 69 U/L High 10-52 [facility] Comment on above: Result Comment: Joanie ents treated with Sulfasalazine may generate falsely decreased results for ALT. Performed By: #### 2 4325-3 #### ELLEN MAHAJAN ([id number]) [facility] ([facility]) [address] [place] [address] AST With P-5'-P [Catalytic activity/Vol] 113 U/L High 9-39 [facility] Comment on above: Performed By: #### 2 4325-3 #### ELLEN MAHAJAN ([id number]) [facility] ([facility]) [address] [place] [address] Bilirubin [Mass/Vol] 0.3 mg/dL Normal 0.0-1.2 [facility] Comment on above: Performed By: #### 2 4325-3 #### ELLEN MAHAJAN ([id number]) [facility] ([facility]) [address] [place] [address]2886 Bilirubin.direct [Mass/Vol] 0.1 mg/dL Normal 0.0-0.3 [facility] Comment on above: Performed By: #### 2 4325-3 #### ELLEN MAHAJAN ([id number]) [facility] ([facility]) [address] [place] [address] Protein [Mass/Vol] 6.4 g/dL Normal 6.4-8.2 [facility] Comment on above: Performed By: #### 2 4325-3 #### ELLEN MAHAJAN ([id number]) [facility] ([facility]) [address] [place] [address] 14831 Lipaseon 04-23-2025 Lipase [Catalytic activity/Vol] 51 U/L 9 - 82 U/L [facility] Comment on above: C-oylmlu-d-benzoquin one imine (metabolite of Acetaminophen)will generate erroneously low results in samples for patients that have taken toxic doses of acetaminophen. Lipase [Catalytic activity/V ol]on 04-23-2025 Interpretation and review of laboratory results Normal [facility] Venipuncture immediately after or during the administration of Metamizole may lead to falsely low results. Testing should be performed immediately prior to Metamizole dosing. [facility] No Panel Informationon 04-23 [facility] Interpretation and review of laboratory results Normal [facility] PT Coag (PPP) [Time]on 04-23 INR Coag (PPP) [Relative time] 1 {INR} 0.9 - 1.1 [facility] INR Coag (PPP) [Relative time] 1.0 Normal 0.9-1.1 [facility] Comment on above: Performed By: #### 5 902-2 #### ELLEN MAHAJAN ([id number]) [facility] ([facility]) [address] [place], [place] [id number] Protime-INRon 04-23-2025 PT Coag (PPP) [Time] 10.9 s [facility] Triacylglycerol lipaseon Lipase [Catalytic activity/Vol] 51 U/L Normal 9-82 [facility] Comment on above: Order Comment: Venip uncture immediately after or during the administration of Metamizole may lead to falsely low results. Testing should be performed immediately prior to Metamizole dosing. Result Comment: N-ac rorc-s-mcmtoqlohvih imine (metabolite of Acetaminophen)will generate erroneously low results in samples for patients that have taken toxic doses of acetaminophen. Performed By: #### 3 040-3 #### ELLEN MAAHJAN ([id number]) [facility] ([facility]) [address] [place], [place] [phone] Tropinin I.cardiac panel Hig h sensitivity methodon 04-23-2025 Interpretation and review of laboratory results Normal [facility] Less than 99th percentile of normal range [...] performed using a different testing methodology at [facility] than at other [facility]. Direct result comparisons should only be made within the same method. [facility] Troponin I, High Sensitivity , Initialon 04-23-2025 Tropinin I.cardiac panel High sensitivity method 5 ng/L 0 - 20 ng/L [facility] Troponin I.cardiac panelon 0 04-23-2025 Tropinin I.cardiac panel High sensitivity method 5 ng/L Normal 0-20 [facility] Comment on above: Order Comment: Less [...] performed using a different testing methodology at [facility] than at other [facility]. Direct result comparisons should only be made within the same method. Performed By: #### 8 9577-1 #### HUGHES ZAINA ([id number]) [facility] ([facility]) [address] [place] [address] Tropinin I.cardiac panel High sensitivity method 5 ng/L Normal 0-20 [facility] Comment on above: Order Comment: Less [...] performed using a different testing methodology at [facility] than at other [facility]. Direct result comparisons should only be made within the same method. Performed By: #### 8 9577-1 #### HUGHES ZAINA ([id number]) [facility] ([facility]) [facility] [place] [id number] XR CHEST 1 VIEWon 04-23-2025 XR CHEST 1 VIEW STUDY: Chest Radiograph; 04/23/2025 10:32 PM. INDICATION: Chest pain. COMPARISON: None ACCESSION NUMBER(S): [id number] ORDERING CLINICIAN: JUSTINA KIM TECHNIQUE: Frontal chest [...] acute cardiopulmonary disease. Signed by Rom Torres [facility] XR Chest Single viewon 04-23 No acute cardiopulmonary disease. Signed by Rom Torres TELERADIOLOGY STUDY: Chest Radiograph; 04/23/2025 10:32 PM. INDICATION: Chest pain. COMPARISON: None ACCESSION NUMBER(S): [id number] ORDERING CLINICIAN: JUSTINA KIM TECHNIQUE: Frontal chest [...] INDICATION: Chest pain. COMPARISON: None ACCESSION NUMBER(S): [id number] ORDERING CLINICIAN: JUSTINA KIM TECHNIQUE: Frontal chest [...] acute cardiopulmonary disease. Signed by Rom Torres [facility] Work Phone: Radiology Study observation (narrative) [facility] Work Phone: XR Chest Single viewOrdered By: Rom Torres on 04-23-2025 [facility] Work Phone: aPTT Coag (PPP) [Time]on The APTT is no longe r used for monitoring Unfractionated Heparin Therapy. For monitoring Heparin Therapy, use the Heparin Assay. [facility] CNOVon 03-18-2025 CNOV Office Visit (INTMWS ) HOLLIE CULLEN ([id number]) 1950 M Date Time Provider Department 03/18/25 [...] PCP - General (Internal Medicine) Khadijah Raman APRN.TELETYPE OPERATOR as Publishing Editor (Internal Medicine) Isael Lebron APRN, CNP (Lung [...] review all the medicines you take, even ugtd-nxa-ipnmzov medicines. As you get older, the way [...] all staircases. (more content not included)... Normal [facility] CBC panel Auto (Bld)on 03-15 Erythrocyte distribution width (RBC) [Ratio] 13.4 % Normal 11.5-15.0 [facility] Comment on above: Order Comment: Speci men Type: BLOOD SPECIMEN Ordering Facility: [facility] Address: [address] [place] [address] Performed By: #### 5 8410-2 #### [facility] CLIA [id number] [address] [place] [address] [place] Hematocrit (Bld) [Volume fraction] 44.0 % Normal 39.0-51.0 [facility] Comment on above: Order Comment: Speci men Type: BLOOD SPECIMEN Ordering Facility: [facility] Address: [address] [place] [address] Performed By: #### 5 8410-2 #### [facility] CLIA [id number] [address] [place] [address] [place] Hemoglobin (Bld) [Mass/Vol] 14.1 g/dL Normal 13.0-17.0 [facility] Comment on above: Order Comment: Speci men Type: BLOOD SPECIMEN Ordering Facility: [facility] Address: [address] [place] [address] Performed By: #### 5 8410-2 #### [facility] CLIA [id number] [address] [place] [address] [place] MCH (RBC) [Entitic mass] 27.6 pg Normal 26.0-34.0 [facility] Comment on above: Order Comment: Speci men Type: BLOOD SPECIMEN Ordering Facility: [facility] Address: [address] [place] [address] Performed By: #### 5 8410-2 #### [facility] CLIA [id number] [address] [place] [address] [place] MCHC (RBC) [Mass/Vol] 32.0 g/dL Normal 30.5-36.0 [facility] Comment on above: Order Comment: Speci men Type: BLOOD SPECIMEN Ordering Facility: [facility] Address: [address] [place] [address] Performed By: #### 5 8410-2 #### [facility] CLIA [id number] [address] [place] [address] [place] MCV (RBC) [Entitic vol] 86.1 fL Normal 80.0-100.0 [facility] Comment on above: Order Comment: Speci men Type: BLOOD SPECIMEN Ordering Facility: [facility] Address: [address] [place] [address] Performed By: #### 5 8410-2 #### [facility] CLIA [id number] [address] [place] [address] [place] Nucleated RBC (Bld) [#/Vol] 10*3/uL Normal <0.01 [facility] Comment on above: Order Comment: Speci men Type: BLOOD SPECIMEN Ordering Facility: [facility] Address: [address] [place] [address] Performed By: #### 5 8410-2 #### [facility] CLIA [id number] [address] [place] [address] [place] Platelet mean volume (Bld) [Entitic vol] 11.2 fL Normal 9.0-12.7 [facility] Comment on above: Order Comment: Speci men Type: BLOOD SPECIMEN Ordering Facility: [facility] Address: [address] [place] [address] Performed By: #### 5 8410-2 #### [facility] CLIA [id number] [address] [place] [address] [place] Platelets (Bld) [#/Vol] 242 10*3/uL Normal 150-400 [facility] Comment on above: Order Comment: Speci men Type: BLOOD SPECIMEN Ordering Facility: [facility] Address: [address] [place] [address] Performed By: #### 5 8410-2 #### [facility] CLIA [id number] [address] [place] [address] [place] RBC (Bld) [#/Vol] 5.11 10*6/uL Normal 4.20-6.00 [facility] Comment on above: Order Comment: Speci men Type: BLOOD SPECIMEN Ordering Facility: [facility] Address: [address] [place] [address] Performed By: #### 5 8410-2 #### [facility] CLIA [id number] [address] [id number] [address] [place] WBC (Bld) [#/Vol] 5.95 10*3/uL Normal 3.70-11.00 [facility] Comment on above: Order Comment: Speci men Type: BLOOD SPECIMEN Ordering Facility: [facility] Address: [address] [place] [address] Performed By: #### 5 8410-2 #### [facility] CLIA [id number] [address] [place] [address] [place] Comprehensive metabolic 2000 panelon 03-15-2025 Albumin [Mass/Vol] 4.2 g/dL Normal 3.9-4.9 [facility] Comment on above: Order Comment: Speci men Type: BLOOD SPECIMEN Ordering Facility: [facility] Address: [address] [place] [address] Performed By: #### 2 4331-1, 75213-2 #### [facility] CLIA [id number] [address] [place] [address] [place] ALP [Catalytic activity/Vol] 94 U/L Normal 38-113 [facility] Comment on above: Order Comment: Speci men Type: BLOOD SPECIMEN Ordering Facility: [facility] Address: [address] [place] [address] Performed By: #### 2 4331-1, 44563-1 #### [facility] CLIA [id number] [address] [place] [address] [place] ALT [Catalytic activity/Vol] 28 U/L Normal 10-54 [facility] Comment on above: Order Comment: Speci men Type: BLOOD SPECIMEN Ordering Facility: [facility] Address: [address] [place] [address] Performed By: #### 2 4331-1, 65707-8 #### [facility] CLIA [id number] [address] [place] [address] [place] Anion gap [Moles/Vol] 9 mmol/L Normal 8-15 [facility] Comment on above: Order Comment: Speci men Type: BLOOD SPECIMEN Ordering Facility: [facility] Address: [address] [place] [address] Performed By: #### 2 4331-1, 83040-0 #### [facility] CLIA [id number] [address] [place] [address] [place] AST [Catalytic activity/Vol] 20 U/L Normal 14-40 [facility] Comment on above: Order Comment: Speci men Type: BLOOD SPECIMEN Ordering Facility: [facility] Address: [address] [place] [address] Performed By: #### 2 4331-1, 81055-0 #### [facility] CLIA [id number] [address] [place] [address] [place] Bilirubin [Mass/Vol] 0.3 mg/dL Normal 0.2-1.3 [facility] Comment on above: Order Comment: Speci men Type: BLOOD SPECIMEN Ordering Facility: [facility] Address: [address] [place] [address] Performed By: #### 2 4331-1, 81740-6 #### [facility] CLIA [id number] [address] [place] [address] [place] Calcium [Mass/Vol] 9.6 mg/dL Normal 8.5-10.2 [facility] Comment on above: Order Comment: Speci men Type: BLOOD SPECIMEN Ordering Facility: [facility] Address: [address] [place] [address] Performed By: #### 2 4331-1, 24490-7 #### [facility] CLIA [id number] [address] [place] [address] [place] Chloride [Moles/Vol] 104 mmol/L Normal 98-107 [facility] Comment on above: Order Comment: Speci men Type: BLOOD SPECIMEN Ordering Facility: [facility] Address: [address] [place] [address] Performed By: #### 2 4331-1, 42510-0 #### [facility] CLIA [id number] [address] [place] [address] [place] CO2 [Moles/Vol] 26 mmol/L Normal 22-30 [facility] Comment on above: Order Comment: Speci men Type: BLOOD SPECIMEN Ordering Facility: [facility] Address: [address] [place] [address] Performed By: #### 2 4331-, #### [facility] CLIA [id number] [address] [place] [address] [place] Creatinine [Mass/Vol] 1.44 mg/dL High 0.73-1.22 [facility] Comment on above: Order Comment: Speci men Type: BLOOD SPECIMEN Ordering Facility: [facility] Address: [address] [place] [address] Performed By: #### 2 4331-, #### [facility] CLIA [id number] [address] [place] [address] [place] Creatinine and Glomerular filtration rate.predicted panel (S/P/Bld) 52 mL/min/1.73m??? Low >=60 [facility] Comment on above: Order Comment: Speci men Type: BLOOD SPECIMEN Ordering Facility: [facility] Address: [address] [place] [address] Result Comment: Gayatri mated Glomerular Filtration Rate [...] actual GFR. Performed By: #### 2 4331-1, 28341-8 #### [facility] CLIA [id number] [address] [place] [address] [place] Glucose [Mass/Vol] 113 mg/dL High 74-99 [facility] Comment on above: Order Comment: Bird reynoso Type: BLOOD SPECIMEN Ordering Facility: [facility] Address: [address] [place] [address] Result Comment: The [place] Diabetes Association (ADA) provides guidance for cutoff [...] Standards of Medical Care in Diabetes 2016, [place] Diabetes Association. Diabetes Care. 2016.39(Suppl 1). Performed By: #### 2 4331-1, 15041-3 #### [facility] CLIA [id number] [address] [place] [address] [place] Potassium [Moles/Vol] 4.5 mmol/L Normal 3.7-5.1 [facility] Comment on above: Order Comment: Bird reynoso Type: BLOOD SPECIMEN Ordering Facility: [facility] Address: [address] [place] [address] Performed By: #### 2 4331-1, 67741-6 #### [facility] CLIA [id number] [address] [place] [address] [place] Protein [Mass/Vol] 7.0 g/dL Normal 6.3-8.0 [facility] Comment on above: Order Comment: Bird reynoso Type: BLOOD SPECIMEN Ordering Facility: [facility] Address: [address] [place] [address] Performed By: #### 2 4331-1, 20755-6 #### [facility] CLIA [id number] [address] [place] [address] [place] Sodium [Moles/Vol] 139 mmol/L Normal 136-144 [facility] Comment on above: Order Comment: Bird reynoso Type: BLOOD SPECIMEN Ordering Facility: [facility] Address: [address] [place] [address] Performed By: #### 2 4331-1, 80073-9 #### [facility] CLIA [id number] [address] [place] [address] [place] Urea nitrogen [Mass/Vol] 18 mg/dL Normal 9-24 [facility] Comment on above: Order Comment: Bird men Type: BLOOD SPECIMEN Ordering Facility: [facility] Address: [address] [place] [address] Performed By: #### 2 4331-1, 45238-0 #### [facility] CLIA [id number] [address] [place] [address] [place] HbA1c (Bld)on 03-15-2025 Average glucose Estimated from glycated hemoglobin (Bld) [Mass/Vol] 128 mg/dL Normal [facility] Comment on above: Order Comment: Bird reynoso Type: BLOOD SPECIMEN Ordering Facility: [facility] Address: [address] [place] [address] Result Comment: eAG: (Estimated average glucose) is a calculated value from HgbA1c and is car sales representative of the average blood glucose level in the last 2-3 month period. Performed By: #### 5 5454-3 #### [facility] CLIA [id number] [address] [place] [address] [place] HbA1c (Bld) [Mass fraction] 6.1 % High 4.3-5.6 [facility] Comment on above: Order Comment: Bird reynoso Type: BLOOD SPECIMEN Ordering Facility: [facility] Address: [address] [place] [address] Result Comment: [place] Diabetes Association guidelines indicate that patients with HgbA1c in the range 5.7-6.4% are at increased risk for development of diabetes, and intervention by lifestyle modification may be beneficial. HgbA1c greater or equal to 6.5% is considered diagnostic of diabetes. Performed By: #### 5 5454-3 #### [facility] CLIA [id number] [address] [place] [address] [place] Lipid 1996 panelon 5 Cholesterol [Mass/Vol] 161 mg/dL Normal <200 [facility] Comment on above: Order Comment: Speci men Type: BLOOD SPECIMEN Ordering Facility: [facility] Address: [address] [place] [address] Result Comment: <200 mg/dL, Desirable 200-239 mg/dL, Borderline high >239 mg/dL, High Performed By: #### 2 4331-1, 82356-9 #### [facility] CLIA [id number] [address] [place] [address] [place] [facility] Cholesterol in HDL [Mass/Vol] 41 mg/dL Normal >39 [facility] Comment on above: Order Comment: Bird reynoso Type: BLOOD SPECIMEN Ordering Facility: [facility] Address: [address] [place] [address] Result Comment: 40-5 9 mg/dL, Acceptable >59 mg/dL, High: Negative risk factor for coronary heart disease <40 mg/dL, Low: Positive risk factor for coronary heart disease Performed By: #### 2 4331-1, 56034-6 #### [facility] CLIA [id number] [address] [place] [address] [place] Cholesterol in LDL [Mass/Vol] 98 mg/dL Normal <100 [facility] Comment on above: Order Comment: [facility] Type: BLOOD SPECIMEN Ordering Facility: [facility] Address: [address] [place] [address] Result Comment: <100 mg/dL, Optimal 100-129 mg/dL, Near optimal/above optimal 130-159 mg/dL, Borderline high 160-189 mg/dL, High >189 mg/dL, Very high Secondary prevention optimal LDL Cholesterol levels are recommended to be <70 mg/dL LDL cholesterol is calculated using the Cobian-NIH equation. Performed By: #### 2 4331-1, 32868-2 #### [facility] CLIA [id number] [address] [place] [address] [place] Cholesterol in LDL/Cholesterol in HDL [Mass ratio] 2.39 {ratio} Normal <2.54 [facility] Comment on above: Order Comment: [facility] Type: BLOOD SPECIMEN Ordering Facility: [facility] Address: [address] [place] [address] Result Comment: Refe rence: 1. National Cholesterol Education Program ATP III Guideline At-A-Glance Quick Desk Reference: National Heart, Lung, and Blood [place]. National Institutes of Health. 2001: NIH Publication No. 01-3305. 2. An International Atherosclerosis Society position paper: global recommendations for the management of dyslipidemia: executive summary, Atherosclerosis. 2014: 232(2):410-413. Performed By: #### 2 4331-1, 31880-3 #### [facility] CLIA [id number] [address] [place] [address] [place] Cholesterol in VLDL [Mass/Vol] 20 mg/dL Normal <30 [facility] Comment on above: Order Comment: [facility] Type: BLOOD SPECIMEN Ordering Facility: [facility] Address: [address] [place] [address] Performed By: #### 2 4331-1, #### [facility] CLIA [id number] [address] [place] [address] [place] Cholesterol non HDL [Mass/Vol] 120 mg/dL Normal <130 [facility] Comment on above: Order Comment: Speci men Type: BLOOD SPECIMEN Ordering Facility: [facility] Address: [address] [place] [address] Result Comment: <130 mg/dL, Optimal 130-159 mg/dL, Near optimal/above optimal 160-189 mg/dL, Borderline high 190-219 mg/dL, High >219 mg/dL, Very high Secondary prevention optimal non HDL Cholesterol levels are recommended to be <100 mg/dL Performed By: #### 2 4331-1, 35982-1 #### [facility] CLIA [id number] [address] [place] [address] [place] Cholesterol.total/Chol esterol in HDL [Mass ratio] 3.93 {ratio} Normal <5.10 [facility] Comment on above: Order Comment: Speci men Type: BLOOD SPECIMEN Ordering Facility: [facility] Address: [address] [place] [address] Performed By: #### 2 4331-1, #### [facility] CLIA [id number] [address] [place] [address] [place] FASTING TIME 15 hrs Normal [facility] Comment on above: Order Comment: Speci men Type: BLOOD SPECIMEN Ordering Facility: [facility] Address: [address] [place] [address] Performed By: #### 2 4331-1, #### [facility] CLIA [id number] [address] [place] [address] [place] Triglyceride [Mass/Vol] 123 mg/dL Normal <150 [facility] Comment on above: Order Comment: Speci men Type: BLOOD SPECIMEN Ordering Facility: [facility] Address: [address] [place] [address] Result Comment: <150 mg/dL, Normal 150-199 mg/dL, Borderline high 200-499 mg/dL, High >499 mg/dL, Very high Performed By: #### 2 4331-1, #### [facility] CLIA [id number] [address] [place] [address] [place] CNPTrudy 03-14-2025 YONISN Telephone (FAMPWS) HOLLIE CULLEN L ([id number]) 1950 M Date Time Provider Department 03/14/25 [...] labs done then since they live in [place]. Call when labs have been ordered. MARCO A Braden Helen E, LPN 03/14/2025 2:37 PM Signed notified fasting labs have been ordered. Manda Gr LPN Allergies As of Date: 03/14/2025 (No Known Allergies) Date Reviewed: 06/14/2024 Reviewed by: Isael Lebron APRN.TELETYPE OPERATOR - Fully Assessed Reason for Visit: Lab Orders [1688] Visit Diagnoses:Impaired fasting glucose [R73.01] Stage 3a chronic kidney disease (HCC) [N18.31] Hyperlipidemia, unspecified hyperlipidemia type [E78.5] Order(s):HEMOGLOBIN A1C [LTMOP3P] Order #: [id number] FUTURE COMPREHENSIVE METABOLIC PANEL [SQCMP] Order #: [id number] FUTURE LIPID PANEL, FASTING [SQLIPB] Order #: [id number] FUTURE COMPLETE BLOOD COUNT [SQCBC] Order #: [id number] FUTURE Prescriptions as of 03/14/2025 - simvastatin [...] Status:Closed by MANDA GR on 03/14/25 Normal [facility] Basic Metabolic Profile (BMP )on 02-28-2025 BUN Normal - [facility] Comment on above: Result Comment: Canc elled via OM: Order cancelled - Patient discharged Performed By: #### L 100.0100, L500.2500 ####[facility] [address] [place], [place], [id number]([phone] BUN/CRE Normal 10-20 [facility] Comment on above: Result Comment: Canc elled via OM: Order cancelled - Patient discharged Performed By: #### L 100.0100, L500.2500 ####[facility] [address] [place], [address] Calcium Normal 7.6-11.0 [facility] Comment on above: Result Comment: Canc elled via OM: Order cancelled - Patient discharged Performed By: #### L 100.0100, L500.2500 ####[facility] [address] [place], [address] CL Normal 98-108 [facility] Comment on above: Result Comment: Canc elled via OM: Order cancelled - Patient discharged Performed By: #### L 100.0100, L500.2500 ####[facility] [address] [place], [address] CO2 Normal 21.0-32.0 [facility] Comment on above: Result Comment: Canc elled via OM: Order cancelled - Patient discharged Performed By: #### L 100.0100, L500.2500 ####[facility] [address] [place], [address] CREAT,SERUM Normal 0.70-1.20 [facility] Comment on above: Result Comment: Canc elled via OM: Order cancelled - Patient discharged Performed By: #### L 100.0100, L500.2500 ####[facility] [address] [place], [address] eGFR Normal >60 [facility] Comment on above: Result Comment: Canc elled via OM: Order cancelled - Patient discharged Performed By: #### L 100.0100, L500.2500 ####[facility] [address] [place], [address] GAP Normal 5-15 [facility] Comment on above: Result Comment: Canc elled via OM: Order cancelled - Patient discharged Performed By: #### L 100.0100, L500.2500 ####[facility] [address] [place], [address] GLU Normal 70-99 [facility] Comment on above: Result Comment: Canc elled via OM: Order cancelled - Patient discharged Performed By: #### L 100.0100, L500.2500 ####[facility] [address] [place], [address] Potassium Normal 3.3-5.1 [facility] Comment on above: Result Comment: Canc elled via OM: Order cancelled - Patient discharged Performed By: #### L 100.0100, L500.2500 ####[facility] [address] [place], [address] Basic Metabolic Profile (BMP) Normal 133-145 [facility] Comment on above: Result Comment: Canc elled via OM: Order cancelled - Patient discharged Performed By: #### L 100.0100, L500.2500 ####[facility] [address] [place], [address] CBC W/Diff, Automatedon 02-15 Absolute Neut Normal 2.0-7.7 [facility] Comment on above: Result Comment: Canc elled via OM: Order cancelled - Patient discharged Performed By: #### L 100.0100, L500.2500 ####[facility] [address] [place], [address] HCT Normal 40-54 [facility] Comment on above: Result Comment: Canc elled via OM: Order cancelled - Patient discharged Performed By: #### L 100.0100, L500.2500 ####[facility] [facility] [address] [place], [address] HGB Normal 13.0-16.5 [facility] Comment on above: Result Comment: Canc elled via OM: Order cancelled - Patient discharged Performed By: #### L 100.0100, L500.2500 ####[facility] [address] [place], [address] MCH Normal 27.0-32.0 [facility] Comment on above: Result Comment: Canc elled via OM: Order cancelled - Patient discharged Performed By: #### L 100.0100, L500.2500 ####[facility] [address], [address] MCHC Normal 32-36 [facility] Comment on above: Result Comment: Canc elled via OM: Order cancelled - Patient discharged Performed By: #### L 100.0100, L500.2500 ####[facility] [address] [place], [address] MCV Normal 80-94 [facility] Comment on above: Result Comment: Canc elled via OM: Order cancelled - Patient discharged Performed By: #### L 100.0100, L500.2500 ####[facility] [address] [place], [address] NEUT% Normal 47-70 [facility] Comment on above: Result Comment: Canc elled via OM: Order cancelled - Patient discharged Performed By: #### L 100.0100, L500.2500 ####[facility] [address] [place], [address] PLT Normal 150-450 [facility] Comment on above: Result Comment: Canc elled via OM: Order cancelled - Patient discharged Performed By: #### L 100.0100, L500.2500 ####[facility] [address] [place], [address] RBC Normal 4.6-6.2 [facility] Comment on above: Result Comment: Canc elled via OM: Order cancelled - Patient discharged Performed By: #### L 100.0100, L500.2500 ####[facility] [address] [place], [address] RDW CV Normal 11.6-14.6 [facility] Comment on above: Result Comment: Canc elled via OM: Order cancelled - Patient discharged Performed By: #### L 100.0100, L500.2500 ####[facility] [address] [place], [address] RDW SD Normal 35.1-43.9 [facility] Comment on above: Result Comment: Canc elled via OM: Order cancelled - Patient discharged Performed By: #### L 100.0100, L500.2500 ####[facility] [address], [address] WBC Normal 4.4-11.0 [facility] Comment on above: Result Comment: Canc elled via OM: Order cancelled - Patient discharged Performed By: #### L 100.0100, L500.2500 ####[facility] [address] [place], [address] Absolute neutrophil countOrd ered By: Los Romero on 02-27-2025 Neutrophils (Bld) [#/Vol] 5.1 10*3/uL 2.0-7.7 [facility] Anion gap in Serum or Plasma Ordered By: Los Romero on 02-27-2025 Anion gap [Moles/Vol] 8 mmol/L 5-15 [facility] BUN/creatinine ratioOrdered By: Los Romero on 02-27-2025 Urea nitrogen/Creatinine [Mass ratio] 8.4 mg/mg Low 10-20 [facility] Basic Metabolic Profile (BMP )on 02-27-2025 BUN/CRE 8.4 RATIO Low 10-20 [facility] Comment on above: Performed By: #### L 100.0100, L500.2500 #### [facility] [address] [place], [address] Calcium [Mass/Vol] 7.9 mg/dL Normal 7.6-11.0 [facility] Comment on above: Performed By: #### L 100.0100, L500.2500 #### [facility] [address] [place], [address] Chloride [Moles/Vol] 112 mmol/L High 98-108 [facility] Comment on above: Performed By: #### L 100.0100, L500.2500 #### [facility] [address] [place] [place], [address] CO2 [Moles/Vol] 20.5 mmol/L Low 21.0-32.0 [facility] Comment on above: Performed By: #### L 100.0100, L500.2500 #### [facility] [address] [place], [address] Creatinine [Mass/Vol] 1.48 mg/dL High 0.70-1.20 [facility] Comment on above: Performed By: #### L 100.0100, L500.2500 #### [facility] [address] [place], [address] ECRCL 54.62 ml/min Normal 50-250 [facility] Comment on above: Performed By: #### L 100.0100, L500.2500 #### [facility] [address] [place], [address] GAP 8 Normal 5-15 [facility] Comment on above: Performed By: #### L 100.0100, L500.2500 #### [facility] [address] [place], [address] GFR/1.73 sq M.predicted among non-blacks MDRD (S/P/Bld) [Vol rate/Area] 50 mL/min/{1.73_m2} Low >60 [facility] Comment on above: Result Comment: mL/m in/1.73m2 CKD-EPI Creatinine Equation (2020) Performed By: #### L 100.0100, L500.2500 #### [facility] [address] [place], [address] Glucose [Mass/Vol] 118 mg/dL High 70-99 [facility] Comment on above: Performed By: #### L 100.0100, L500.2500 #### [facility] [address] [place], [address] Potassium [Moles/Vol] 3.7 mmol/L Normal 3.3-5.1 [facility] Comment on above: Performed By: #### L 100.0100, L500.2500 #### [facility] [address] [place], [address] Sodium [Moles/Vol] 141 mmol/L Normal 133-145 [facility] Comment on above: Performed By: #### L 100.0100, L500.2500 #### [facility] [address] [place], [address] Urea nitrogen [Mass/Vol] 12 mg/dL Normal 4-19 [facility] Comment on above: Performed By: #### L 100.0100, L500.2500 #### [facility] [address] [place], [address] Basophil percentageOrdered B y: Los Romero on 02-27-2025 Basophils/100 WBC (Bld) 0.4 % 0-1 [facility] CBC W/Diff, Automatedon 02-15-2024 Absolute Lymph 1.54 X10 3/uL Normal 0.83-4.51 [facility] Comment on above: Performed By: #### L 100.0100, L500.2500 #### [facility] [address] [place], [address] Absolute Neut 5.1 X10 3/uL Normal 2.0-7.7 [facility] Comment on above: Performed By: #### L 100.0100, L500.2500 #### [facility] [address] [place], [address] Basophils/100 WBC (Bld) 0.4 % Normal 0-1 [facility] Comment on above: Performed By: #### L 100.0100, L500.2500 #### [facility] [address] [place], [address] Eosinophils/100 WBC (Bld) 1.8 % Normal 0-5 [facility] Comment on above: Performed By: #### L 100.0100, L500.2500 #### [facility] [address] [place], [address] Erythrocyte distribution width (RBC) [Ratio] 13.2 % Normal 11.6-14.6 [facility] Comment on above: Performed By: #### L 100.0100, L500.2500 #### [facility] [address] [place], [address] Hematocrit (Bld) [Volume fraction] 32.7 % Low 40-54 [facility] Comment on above: Performed By: #### L 100.0100, L500.2500 #### [facility] [address] [place], [address] Hemoglobin (Bld) [Mass/Vol] 10.9 g/dL Low 13.0-16.5 [facility] Comment on above: Performed By: #### L 100.0100, L500.2500 #### [facility] [address] [place], [address] IG% 0.400 Normal 0.0-0.9 [facility] Comment on above: Result Comment: IG% - Immature Granulocytes (promyelocytes, myelocytes and metamyelocytes) > 1% indicates that a LEFT SHIFT is Present. Performed By: #### L 100.0100, L500.2500 #### [facility] [address] [place], [address] Lymphocytes/100 WBC (Bld) 19.8 % Normal 19-41 [facility] Comment on above: Performed By: #### L 100.0100, L500.2500 #### [facility] [address] [place], [address] MCH (RBC) [Entitic mass] 28.3 pg Normal 27.0-32.0 [facility] Comment on above: Performed By: #### L 100.0100, L500.2500 #### [facility] [address] [place], [address] MCHC (RBC) [Mass/Vol] 33.3 g/dL Normal 32-36 [facility] Comment on above: Performed By: #### L 100.0100, L500.2500 #### [facility] [address] [place], [address] MCV (RBC) [Entitic vol] 84.9 fL Normal 80-94 [facility] Comment on above: Performed By: #### L 100.0100, L500.2500 #### [facility] [address] [place], [address] Monocytes/100 WBC (Bld) 12.2 % High 0-10 [facility] Comment on above: Performed By: #### L 100.0100, L500.2500 #### [facility] [address] [place], [address] Neutrophils/100 WBC (Bld) 65.4 % Normal 47-70 [facility] Comment on above: Performed By: #### L 100.0100, L500.2500 #### [facility] [address] [place], [address] Nucleated RBC (Bld) [#/Vol] 0 10*3/uL Normal 0-5 [facility] Comment on above: Performed By: #### L 100.0100, L500.2500 #### [facility] [address] [place], [address] Platelet mean volume (Bld) [Entitic vol] 11.2 fL Normal 6.2-12.0 [facility] Comment on above: Performed By: #### L 100.0100, L500.2500 #### [facility] [address] [place], [address] Platelets (Bld) [#/Vol] 129 10*3/uL Low 150-450 [facility] Comment on above: Performed By: #### L 100.0100, L500.2500 #### [facility] [address] [place], [address] RBC (Bld) [#/Vol] 3.85 10*6/uL Low 4.6-6.2 [facility] Comment on above: Performed By: #### L 100.0100, L500.2500 #### [facility] [address] [place], [address] RDW SD 40.9 fl Normal 35.1-43.9 [facility] Comment on above: Performed By: #### L 100.0100, L500.2500 #### [facility] [address] [place], [address] WBC (Bld) [#/Vol] 7.8 10*3/uL Normal 4.4-11.0 [facility] Comment on above: Performed By: #### L 100.0100, L500.2500 #### [facility] [address] [place], [address] Carbon dioxide, total [Moles /volume] in Central venous bloodOrdered By: Los Romero on 02-27-2025 CO2 [Moles/Vol] 20.5 mmol/L Low 21.0-32.0 [facility] Chloride assayOrdered By: Naheed Romero on 02-27-2025 Chloride [Moles/Vol] 112 mmol/L High 98-108 [facility] Eosinophil percentageOrdered By: Los Romero on 02-27-2025 Eosinophils/100 WBC (Bld) 1.8 % 0-5 [facility] Erythrocyte distribution wid th (RBC) [Ratio]Ordered By: Los Romero on 02-27-2025 Erythrocyte distribution width (RBC) [Entitic vol] 40.9 fL 35.1-43.9 [facility] Erythrocyte distribution wid th ratioOrdered By: Los Romero on 02-27-2025 Erythrocyte distribution width (RBC) [Ratio] 13.2 % 11.6-14.6 [facility] Estimation of creatinine umang aranceOrdered By: Los Romero on 02-27-2025 Estimated Creatinine Clearance Calc 54.62 ml/min 50-250 [facility] GFR/1.73 sq M.predicted gabi g non-blacks MDRD (S/P/Bld) [Vol rate/Area]Ordered By: Los Romero on 02-27-2025 Estimated GFR (MDRD) Non-Af Amer 50 Low >60 [facility] Comment on above: mL/min/1.73m2 CKD-EP I Creatinine Equation (2020) Hematocrit Auto (Bld) [Volum e fraction]Ordered By: Los Romero on 02-27-2025 Hematocrit (Bld) [Volume fraction] 32.7 % Low 40-54 [facility] Hemoglobin measurementOrdere d By: Los Romero on 02-27-2025 Hemoglobin (Bld) [Mass/Vol] 10.9 g/dL Low 13.0-16.5 [facility] Immature granulocytes/100 WB C Auto (Bld)Ordered By: Los Romero on 02-27-2025 Immature granulocytes/100 WBC (Bld) 0.400 % 0.0-0.9 [facility] Comment on above: IG% - Immature Granu locytes (promyelocytes, myelocytes and metamyelocytes) > 1% indicates that a LEFT SHIFT is Present. Lymphocytes Auto (Unsp spec) [#/Vol]Ordered By: Los Romero on 02-27-2025 Lymphocytes (Bld) [#/Vol] 1.54 10*3/uL 0.83-4.51 [facility] Lymphocytes/100 WBC Auto (Un sp spec)Ordered By: Los Romero on 02-27-2025 Lymphocytes/100 WBC (Bld) 19.8 % 19-41 [facility] MCV (mean corpuscular volume ) determinationOrdered By: Los Romero on 02-27-2025 MCV (RBC) [Entitic vol] 84.9 fL 80-94 [facility] Mean corpuscular hemoglobin (MCH) determinationOrdered By: Los Romero on 02-27-2025 MCH (RBC) [Entitic mass] 28.3 pg 27.0-32.0 [facility] Mean corpuscular hemoglobin concentration (MCHC) determinationOrdered By: Los Romero on 02-27-2025 MCHC (RBC) [Mass/Vol] 33.3 g/dL 32-36 [facility] Mean platelet volume determi nationOrdered By: Los Romero on 02-27-2025 Platelet mean volume (Bld) [Entitic vol] 11.2 fL 6.2-12.0 [facility] Monocyte percentageOrdered B y: Los Romero on 02-27-2025 Monocytes/100 WBC (Bld) 12.2 % High 0-10 [facility] Neutrophil percentageOrdered By: Los Romero on 02-27-2025 Neutrophils/100 WBC (Bld) 65.4 % 47-70 [facility] Nucleated red blood cell per centageOrdered By: Los Romero on 02-27-2025 Nucleated RBC/100 WBC (Bld) [Ratio] 0 % 0-5 [facility] Platelet countOrdered By: Naheed Romero on 02-27-2025 Platelets (Bld) [#/Vol] 129 10*3/uL Low 150-450 [facility] Potassium (Unsp spec) [Mass/ Vol]Ordered By: Los Romero on 02-27-2025 Potassium [Moles/Vol] 3.7 mmol/L 3.3-5.1 [facility] RBC Auto (Bld) [#/Vol]Ordere d By: Los Romero on 02-27-2025 RBC (Bld) [#/Vol] 3.85 10*6/uL Low 4.6-6.2 [facility] Serum creatinine measurement (mass/volume)Ordered By: Los Romero on 02-27-2025 Creatinine [Mass/Vol] 1.48 mg/dL High 0.70-1.20 [facility] Serum glucose measurement (m ass/volume)Ordered By: Los Romero on 02-27-2025 Glucose [Mass/Vol] 118 mg/dL High 70-99 [facility] Serum or plasma calcium rayshawn urement (mass/volume)Ordered By: Los Romero on 02-27-2025 Calcium [Mass/Vol] 7.9 mg/dL 7.6-11.0 [facility] Serum or plasma urea nitroge n measurement (mass/volume)Ordered By: Los Romero on 02-27-2025 Urea nitrogen [Mass/Vol] 12 mg/dL 4-19 [facility] Sodium levelOrdered By: Los Romero on 02-27-2025 Sodium [Moles/Vol] 141 mmol/L 133-145 [facility] White blood cell (WBC) count Ordered By: Los Romero on 02-27-2025 WBC (Bld) [#/Vol] 7.8 10*3/uL 4.4-11.0 [facility] Basic Metabolic Profile (BMP )on 02-26-2025 BUN/CRE 9.7 RATIO Low 10-20 [facility] Comment on above: Performed By: #### L 100.0100, L500.2500 ####[facility] [address] [place], [address] Calcium [Mass/Vol] 8.0 mg/dL Normal 7.6-11.0 [facility] Comment on above: Performed By: #### L 100.0100, L500.2500 ####[facility] [address] [place], [address] Chloride [Moles/Vol] 109 mmol/L High 98-108 [facility] Comment on above: Performed By: #### L 100.0100, L500.2500 ####[facility] [address] [place], [address] CO2 [Moles/Vol] 20.2 mmol/L Low 21.0-32.0 [facility] Comment on above: Performed By: #### L 100.0100, L500.2500 ####[facility] [address] [place], [address] Creatinine [Mass/Vol] 1.54 mg/dL High 0.70-1.20 [facility] Comment on above: Performed By: #### L 100.0100, L500.2500 ####[facility] [address] [place], [address] ECRCL 52.50 ml/min Normal 50-250 [facility] Comment on above: Performed By: #### L 100.0100, L500.2500 ####[facility] [address] [place], [address] GAP 10 Normal 5-15 [facility] Comment on above: Performed By: #### L 100.0100, L500.2500 ####[facility] [address] [place], [address] GFR/1.73 sq M.predicted among non-blacks MDRD (S/P/Bld) [Vol rate/Area] 48 mL/min/{1.73_m2} Low >60 [facility] Comment on above: Result Comment: mL/m in/1.73m2 CKD-EPI Creatinine Equation (2020) Performed By: #### L 100.0100, L500.2500 ####[facility] [address] [place], [address] Glucose [Mass/Vol] 144 mg/dL High 70-99 [facility] Comment on above: Performed By: #### L 100.0100, L500.2500 ####[facility] [address] [place], [address] Potassium [Moles/Vol] 4.2 mmol/L Normal 3.3-5.1 [facility] Comment on above: Performed By: #### L 100.0100, L500.2500 ####[facility] [address] [place], [address] Sodium [Moles/Vol] 139 mmol/L Normal 133-145 [facility] Comment on above: Performed By: #### L 100.0100, L500.2500 ####[facility] [address] [place], [address] Urea nitrogen [Mass/Vol] 15 mg/dL Normal 4-19 [facility] Comment on above: Performed By: #### L 100.0100, L500.2500 ####[facility] [address] [place], [address] CBC W/Diff, Automatedon 02-15 Absolute Lymph 1.15 X10 3/uL Normal 0.83-4.51 [facility] Comment on above: Performed By: #### L 100.0100, L500.2500 ####[facility] [address] [place], [address] Absolute Neut 8.1 X10 3/uL High 2.0-7.7 [facility] Comment on above: Performed By: #### L 100.0100, L500.2500 ####[facility] [address] [place], [address] Basophils/100 WBC (Bld) 0.2 % Normal 0-1 [facility] Comment on above: Performed By: #### L 100.0100, L500.2500 ####[facility] [address] [place], [address] Eosinophils/100 WBC (Bld) 0.1 % Normal 0-5 [facility] Comment on above: Performed By: #### L 100.0100, L500.2500 ####[facility] [address] [place], [address] Erythrocyte distribution width (RBC) [Ratio] 13.2 % Normal 11.6-14.6 [facility] Comment on above: Performed By: #### L 100.0100, L500.2500 ####[facility] [address] [place], [address] Hematocrit (Bld) [Volume fraction] 34.0 % Low 40-54 [facility] Comment on above: Performed By: #### L 100.0100, L500.2500 ####[facility] [address] [place], [address] Hemoglobin (Bld) [Mass/Vol] 11.2 g/dL Low 13.0-16.5 [facility] Comment on above: Performed By: #### L 100.0100, L500.2500 ####[facility] [address] [place], [address] IG% 0.400 Normal 0.0-0.9 [facility] Comment on above: Result Comment: IG% - Immature Granulocytes (promyelocytes, myelocytes and metamyelocytes) > 1% indicates that a LEFT SHIFT is Present. Performed By: #### L 100.0100, L500.2500 ####[facility] [address] [place], [address] Lymphocytes/100 WBC (Bld) 11.0 % Low 19-41 [facility] Comment on above: Performed By: #### L 100.0100, L500.2500 ####[facility] [address] [place], [address] MCH (RBC) [Entitic mass] 28.4 pg Normal 27.0-32.0 [facility] Comment on above: Performed By: #### L 100.0100, L500.2500 ####[facility] [address] [place], [address] MCHC (RBC) [Mass/Vol] 32.9 g/dL Normal 32-36 [facility] Comment on above: Performed By: #### L 100.0100, L500.2500 ####[facility] [address] [place], [address] MCV (RBC) [Entitic vol] 86.3 fL Normal 80-94 [facility] Comment on above: Performed By: #### L 100.0100, L500.2500 ####[facility] [address] [place], [address] Monocytes/100 WBC (Bld) 11.4 % High 0-10 [facility] Comment on above: Performed By: #### L 100.0100, L500.2500 ####[facility] [address] [place], [address] Neutrophils/100 WBC (Bld) 76.9 % High 47-70 [facility] Comment on above: Performed By: #### L 100.0100, L500.2500 ####[facility] [address] [place], [address] Nucleated RBC (Bld) [#/Vol] 0 10*3/uL Normal 0-5 [facility] Comment on above: Performed By: #### L 100.0100, L500.2500 ####[facility] [address] [place], [address] Platelet mean volume (Bld) [Entitic vol] 11.3 fL Normal 6.2-12.0 [facility] Comment on above: Performed By: #### L 100.0100, L500.2500 ####[facility] [address] [place], [address] Platelets (Bld) [#/Vol] 153 10*3/uL Normal 150-450 [facility] Comment on above: Performed By: #### L 100.0100, L500.2500 ####[facility] [address] [place], [address] RBC (Bld) [#/Vol] 3.94 10*6/uL Low 4.6-6.2 [facility] Comment on above: Performed By: #### L 100.0100, L500.2500 ####[facility] [address] [place], [address] RDW SD 41.4 fl Normal 35.1-43.9 [facility] Comment on above: Performed By: #### L 100.0100, L500.2500 ####[facility] [address] [place], [address] WBC (Bld) [#/Vol] 10.5 10*3/uL Normal 4.4-11.0 [facility] Comment on above: Performed By: #### L 100.0100, L500.2500 ####[facility] [address] [place], [address] Discharge Instructionon 02-15 Discharge Instruction [facility] Medical Records Department [address] [facility] [place] [address] Instructions for Home/Discharge Instructions 02/25/25 0944 MR#: [id number] Acct: [id number] Name: HOLLIE CULLEN Rep #: [id number] : 1950 74 From: Los Romero MD [...] Up With: Los Romero MD When: Call [phone] for an appointment Test Results: Test results from this visit will be discussed in further detail at your follow-up appointment, if applicable. Discharge Plan Admission Primary Reason for Your Visit: Right nephro ureterectomy Attending Provider: Los Romero Primary Care Provider: Erwin Garcia Instructions Print Language: Gambian Discharge Orders/Prescriptions Prescriptions: New oxycodone 5 mg [...] MD CC: Dr. Erwin Garcia MD Signed [facility] MR/POSTOP.ANE 02-25-2025 MR/POSTOP.[facility] Medical Records Department [address] [place] [address] Anesthesia Postop Eval I 02/25/25 100 MR#: [id number] Acct: [id number] Name: HOLLIE CULLEN Rep #: [id number] : 1950 74 From: Riley Grewal CRNA PCP: Dr. Erwin Garcia MD Status:ADM MARYCHUY Y Race: C Location: [place] [address] Anesthesia: Postop Eval I Current Vital Signs [...] Date Riley Weemsign Signature: Date CC: Signed [facility] MR/HXECWHLW2ys 02-25-2025 [facility] Medical Records Department [address] [place] [address] Anesthesia Postop Eval II 02/25/25 1111 MR#: [id number] Acct: [id number] Name: HOLLIE CULLEN Rep #: [id number] : 1950 74 From: José Michael MD PCP: Dr. Erwin Garcia MD Status:ADM MARYCHUY Y Race: C Location: [facility] [id number] Anesthesia Postop Eval I Sum Postop Eval Completion status Anesthesia document: Postop Eval 1 completed: Yes Anesthesia Postop Eval I Summary Anesthesia Postop Eval I Summary: Anesthesia Postop Eval I: Assessment Summary Airway patent Yes 02/25/25 10:06 PERIOPERATIVE EDUCATOR.PKEL Spontaneous unlabored Yes 02/25/25 10:06 PERIOPERATIVE EDUCATOR.PKEL respirations Mental status Awake,Calm 02/25/25 10:06 PERIOPERATIVE EDUCATOR.PKEL nausea No 02/25/25 10:06 PERIOPERATIVE EDUCATOR.PKEL Vomiting No 02/25/25 10:06 PERIOPERATIVE EDUCATOR.PKEL Anesthesia Postop Eval I: Fluid Summary Crystalloid volume administer 1,600 02/25/25 10:06 PERIOPERATIVE EDUCATOR.PKEL (ml) Colloids volume administered ( ml) Blood Product volume administered (ml) Total IV fluid infused 1,600 02/25/25 10:06 PERIOPERATIVE EDUCATOR.PKEL Anesthesia Postop Eval I: Summary Notes Anesthesia Complication No 02/25/25 10:06 PERIOPERATIVE EDUCATOR.PKEL Anesthesia Complication Comment: Post-operative progress note Anesthesia: Postop Eval II Evaluation Mental status: Awake Pain Level: 0 nausea: No Vomiting: No 02/25/25 1111 Date José iMchael MD Cosigner Signature: Date CC: Signed Normal [facility] Operative Reporton Operative Report [facility] Medical Records Department [address] [place] [address] Operative Report 02/25/25 0944 MR#: [id number] Acct: [id number] Name: HOLLIE CULLEN Rep #: [id number] : 1950 74 From: Los Romero MD PCP: Dr. Erwin Garcia MD Status:REG [facility] Location: [place] [address] Operative Report (Standard) Operative Information Date of Procedure: 02/25/25 Pre-Operative Diagnosis: Right nonfunctioning kidney hydroureteronephrosis Post-Operative Diagnosis: The same Surgery/Procedure Performed: Laparoscopic robotic assisted right nephro ureterectomy dot compliance coordinator: No Type of Anesthesia: General RN Documented [...] a air seal port suction for the podiatric assistant I then docked the robot we [...] MD; Dr. Erwin Garcia MD Signed Normal [facility] Surgery Specimen Level Von 0 02-25-2025 Surgery Specimen Level V Patient Age/Sex Location Account Attending Physician HOLLIE CULLEN 74/M MS3 [id number] Dr. Los Romero MD Specimen: [id number] Received: 02/25/25 Status: AVERY Moreland Num: [id number] Spec Type: KIDNEY Subm Dr: Dr. Los [...] cm. Serial sections reveal homogenous cut surfaces. Production Supervisor Off Shift sections:A1. Vascular margins, en faceA2-3. Serial sections of dilated kidney (inked black at suture)A4. Small nodules present at dilated kidneyA5. 3 ureteral Patient Age/Sex Location Account Attending Physician HOLLIE CULLEN 74/M MS3 [id number] Dr. Los Romero MD margins, en face (single aspect with each bifurcated lumen)A6. Ureter before bifurcation with small argueta nodulesA7. Ureter at bifurcationA8. Separate, bifurcated ureters with small argueta nodules [facility] 03/09/2025 CPT:16956 Patient Age/Sex Location Account Attending Physician HOLLIE CULLEN 74/M MS3 [id number] Dr. Los Romero MD Signed (signature on file) Dr. Isael Cazares MD 03/09/[address] [facility] Comment on above: Performed By: #### P SUV ####[facility] [address] [place], [address] Electrocardiogram reportOrde red By: Migel Meléndez on 02-16-2025 EKG study [facility] Cardiovascular Services [address] [place] [address] 12 Lead EKG 02/15/25 0856 MR#: [id number] Acct: [id number] Name: HOLLIE CULLEN Rep #[id number] : 1950 74 From: Migel Meléndez MD Attending Dr: Dr. Los Romero MD Status: PRE SDC Ordering Dr: José Michael MD Date: 12/11 Location: [facility] Sex: M C Admitted: Test Reason : [...] ECG Confirmed by RIKA CLARKE, MIGEL ([id number]), editor index MARYLU EDWARDS ([id number]) on 02/16/2025 6:36:46 AM Referred By: Los Romero Confirmed By: MIGEL MELÉNDEZ MD 02/16/25 0636 Date _ Migel Meléndez MD CC: Dr. José Michael MD; Dr. Los Romero MD; Dr. Erwin Garcia MD ~ Signed [facility] Work Phone: Surgery Visit Reporton 02-16 Surgery Visit Report [facility] [address] [facility] [place] [address] OFFICE VISIT Date of Service: 02/14/25 MR#: [id number] Acct: [id number] Name: HOLLIE CULLEN Rep #: [id number] : 1950 Provider: Dr. Elana boothe MD Age/Sex: 74/M Location: [facility] Status: Signed Intake Vital Signs 02/07/25 09:39 [...] get worse prior. Elana Richmond M.D. Pager: [phone] [facility] [address] [place] [address], [facility], [address] [place] [address] Office: [phone] Coding Level of Care Code Off vis,est,level 3 Diagnoses Bloating symptom R14.0 Gallstones K80.20 Kidney atrophy N26.1 Clinical Quality Measures Falls Risk Screening/Assistive Devices Have you fallen in the past year?: No 02/16/25 1332 Date Elana Haney Signature: Date (if applicable) CC: Dr. Erwin Garcia MD [facility] 12 Lead EKGon 02-15-2025 12 Lead EKG [facility] Cardiovascular Services [address] [place] [address] 12 Lead EKG 02/15/25 0856 MR#: [id number] Acct: [id number] Name: HOLLIE CULLEN Rep #: [id number] : 1950 74 From: Migel Meléndez MD Attending Dr: Dr. Los Romero MD Status: PRE [facility] Ordering Dr: José Michael MD Date: 02/15/25 Location: [facility] Sex: M C Admitted: Test Reason : [...] ECG Confirmed by RIKA CLARKE, MIGEL ([id number]), editor index MARYLU EDWARDS ([id number]) on 02/16/2025 6:36:46 AM Referred By: Los Romero Confirmed By: MIGEL MELÉNDEZ MD 02/16/25 0636 Date Migel Meléndez MD CC: Dr. José Michael MD; Dr. Los Romero MD; Dr. Erwin Garcia MD Signed [facility] MR/PAT.Norman 02-15-2025 MR/PAT.[facility] Medical Records Department [address] [place] [address] PAT - Anesthesia 02/15/25 1625 MR#: [id number] Acct: [id number] Name: GIOHOLLIE Rep #: [id number] : 1950 74 From: Kvng Caraballo MD PCP: Dr. Erwin Garcia MD Status:PRE SDC Y Race: C Location: [facility] Pre-Assessment Diagnosis/Proposed Procedure Planned Operative Procedure(s): (R) Laparoscopic, Robotic, Nephrectomy, Ureterectomy Anesthesia History Anesthesia History - riveter automobile brakes: Anesthesia History - riveter automobile brakes Hx Hospitalization No 02/11/25 13:33 Any Problems [...] take am of surgery PONV PONV - riveter automobile brakes: PONV - riveter automobile brakes Female No 02/11/25 13:33 HX of Motion [...] 02/07/25 09:39 Respiratory Assessment Respiratory Assessment - riveter automobile brakes: Respiratory Tract Infection Hx - riveter automobile brakes Hx Respiratory Tract Infection No 02/11/25 13:33 STOP Sleep Apnea STOP Sleep Apnea - riveter automobile brakes: STOP Sleep Apnea - riveter automobile brakes Hx Hypertension No 02/11/25 13:33 Hx Sleep [...] Tobacco Use History Tobacco Use History - riveter automobile brakes: Tobacco Use History - riveter automobile brakes Tobacco Use Smoking Status Light Smoker (<10/day) 02/11/25 13:33 Hx Tobacco Use Yes 02/11/25 13:33 Years Smoking 50 02/11/25 13:33 Packs Smoked per Day 1 02/11/25 13:33 Smoking Cessation Date was within the last 15 years Hx Smoking Cessation Date Hx Smoking Cessation Counseling Hematologic Medial History Hematologic Hx - riveter automobile brakes: 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 Normal [facility] Surgery Visit Reporton 02-07 Surgery Visit Report [facility] [address] [place] [address]. [address] [place] [address] OFFICE VISIT Date of Service: 02/07/25 MR#: [id number] Acct: [id number] Name: GIOHOLLIE Rep #: [id number] : 1950 Provider: Dr. Elana boothe MD Age/Sex: 74/M Location: [facility] Status: Signed Intake Vital Signs 01/31/25 10:04 [...] cut, br (more content not included)... Normal [facility] Urine Cultureon 02-03-2025 URC Streptococcus mitis/ oralis [place] Count 25,000-50,000 Streptococcus mitis/ oralis: REACTION Ampicillin Islt JENNY <=0.25 Penicillin G Islt JENNY <=0.06 S Cefotaxime Islt JENNY <=0.12 S cefTRIAXone Islt JENNY <=0.12 S Linezolid Islt JENNY <=2 S Vancomycin Islt JENNY 0.[address] [facility] Comment on above: Performed By: #### M 100.2200 ####[facility] [address] [facility] [address] [place], [place], [id number] Abdomen Limitedon 01-31-2025 Abdomen Limited [facility] Imaging Services [address] [place] [address] Abdomen Limited MR#: [id number] Acct: [id number] Name: HOLLIE CULLEN Rep #: [id number] : 1950 M 74 From: Rayray alvarenga MD PCP: Dr. Erwin Garcia MD Status: REG ER Study: Abdomen Limited Date of Exam: 01/31/25 Exam# [id number] Ordering Dr: Rashi Lee DO PROCEDURE: ABDOMEN [...] infiltration of the liver. Hepatomegaly. Reading Location: [place] [address] CC: Dr. Rashi Lee DO; Dr. Erwin Garcia MD Side Panel Hanger: Signed Normal [facility] Abdomen/Pelvis WITH Contrast on 01-31-2025 Abdomen/Pelvis WITH Contrast [facility] Imaging Services [address] [place] [address] [id number] Abdomen/Pelvis WITH Contrast MR#: [id number] Acct: [id number] Name: HOLLIE CULLEN Rep #: [id number] : 1950 M 74 From: Rayray alvarenga MD PCP: Dr. Erwin Garcia MD Status: REG ER Study: Abdomen/Pelvis WITH Contrast Date of Exam: Exam# [id number] Ordering Dr: Rashi Lee DO PROCEDURE: ABDOMEN/PELVIS [...] side. Diffuse bladder wall thickening. Reading Location: [place] [address] CC: Dr. Rashi Lee DO; Dr. Erwin Garcia MD Side Panel Hanger: Signed Normal [facility] Absolute neutrophil countOrd ered By: Rashi Lee on 01-31-2025 Neutrophils (Bld) [#/Vol] 5.4 10*3/uL 2.0-7.7 [facility] Anion gap in Serum or Plasma Ordered By: Rashi Lee on 01-31-2025 Anion gap [Moles/Vol] 7 mmol/L 5-15 [facility] BUN/creatinine ratioOrdered By: Rashi Lee on 01-31-2025 Urea nitrogen/Creatinine [Mass ratio] 13.1 mg/mg 10-20 [facility] Basophil percentageOrdered B y: Rashi Lee on 01-31-2025 Basophils/100 WBC (Bld) 0.5 % 0-1 [facility] Bilirubin Test strip Ql (U)O rdered By: Rashi Lee on 01-31-2025 Bilirubin Ql (U) Negative Negative [facility] Bilirubin, totalOrdered By: Rashi Lee on 01-31-2025 Bilirubin [Mass/Vol] 0.27 mg/dL 0.00-1.30 [facility] CBC W/Diff, Automatedon 01-15 Absolute Lymph 1.21 X10 3/uL Normal 0.83-4.51 [facility] Comment on above: Performed By: #### L 100.0100, L501.2450, L500.4050 #### [facility] Laboratory [address], [address] Absolute Neut 5.4 X10 3/uL Normal 2.0-7.7 [facility] Comment on above: Performed By: #### L 100.0100, L501.2450, L500.4050 #### [facility] [address] [place], [address] Basophils/100 WBC (Bld) 0.5 % Normal 0-1 [facility] Comment on above: Performed By: #### L 100.0100, L501.2450, L500.4050 #### [facility] [address] [place], [address] Eosinophils/100 WBC (Bld) 1.8 % Normal 0-5 [facility] Comment on above: Performed By: #### L 100.0100, L501.2450, L500.4050 #### [facility] [address] [place], [address] Erythrocyte distribution width (RBC) [Ratio] 13.4 % Normal 11.6-14.6 [facility] Comment on above: Performed By: #### L 100.0100, L501.2450, L500.4050 #### [facility] [address] [place], [address] Hematocrit (Bld) [Volume fraction] 43.8 % Normal 40-54 [facility] Comment on above: Performed By: #### L 100.0100, L501.2450, L500.4050 #### [facility] [address] [place], [address] Hemoglobin (Bld) [Mass/Vol] 14.7 g/dL Normal 13.0-16.5 [facility] Comment on above: Performed By: #### L 100.0100, L501.2450, L500.4050 #### [facility] [address] [place], [address] IG% 0.100 Normal 0.0-0.9 [facility] Comment on above: Result Comment: IG% - Immature Granulocytes (promyelocytes, myelocytes and metamyelocytes) > 1% indicates that a LEFT SHIFT is Present. Performed By: #### L 100.0100, L501.2450, L500.4050 #### [facility] [address] [place], [address] Lymphocytes/100 WBC (Bld) 16.0 % Low 19-41 [facility] Comment on above: Performed By: #### L 100.0100, L501.2450, L500.4050 #### [facility] [address] [place], [address] MCH (RBC) [Entitic mass] 28.4 pg Normal 27.0-32.0 [facility] Comment on above: Performed By: #### L 100.0100, L501.2450, L500.4050 #### [facility] [address] [place], [address] MCHC (RBC) [Mass/Vol] 33.6 g/dL Normal 32-36 [facility] Comment on above: Performed By: #### L 100.0100, L501.2450, L500.4050 #### [facility] [address] [place], [address] MCV (RBC) [Entitic vol] 84.7 fL Normal 80-94 [facility] Comment on above: Performed By: #### L 100.0100, L501.2450, L500.4050 #### [facility] [address] [place], [address] Monocytes/100 WBC (Bld) 10.8 % High 0-10 [facility] Comment on above: Performed By: #### L 100.0100, L501.2450, L500.4050 #### [facility] [address] [place], [address] Neutrophils/100 WBC (Bld) 70.8 % High 47-70 [facility] Comment on above: Performed By: #### L 100.0100, L501.2450, L500.4050 #### [facility] [address] [place], [address] Nucleated RBC (Bld) [#/Vol] 0 10*3/uL Normal 0-5 [facility] Comment on above: Performed By: #### L 100.0100, L501.2450, L500.4050 #### [facility] [address] [place], [address] Platelet mean volume (Bld) [Entitic vol] 10.3 fL Normal 6.2-12.0 [facility] Comment on above: Performed By: #### L 100.0100, L501.2450, L500.4050 #### [facility] [address] [place], [address] Platelets (Bld) [#/Vol] 188 10*3/uL Normal 150-450 [facility] Comment on above: Performed By: #### L 100.0100, L501.2450, L500.4050 #### [facility] [address] [place], [address] RBC (Bld) [#/Vol] 5.17 10*6/uL Normal 4.6-6.2 [facility] Comment on above: Performed By: #### L 100.0100, L501.2450, L500.4050 #### [facility] [address] [place], [address] RDW SD 41.7 fl Normal 35.1-43.9 [facility] Comment on above: Performed By: #### L 100.0100, L501.2450, L500.4050 #### [facility] [address] [place], [address] WBC (Bld) [#/Vol] 7.6 10*3/uL Normal 4.4-11.0 [facility] Comment on above: Performed By: #### L 100.0100, L501.2450, L500.4050 #### [facility] [address] [place], [address] Carbon dioxide, total [Moles /volume] in Central venous bloodOrdered By: Rashi Lee on 01-31-2025 CO2 [Moles/Vol] 26.2 mmol/L 21.0-32.0 [facility] Chloride assayOrdered By: Star Lee on 01-31-2025 Chloride [Moles/Vol] 105 mmol/L 98-108 [facility] Comprehensive Metabolic Prof ilon 01-31-2025 Albumin [Mass/Vol] 4.0 g/dL Normal 3.4-4.8 [facility] Comment on above: Performed By: #### L 100.0100, L501.2450, L500.4050 #### [facility] [address] [place], [address] Albumin/Globulin [Mass ratio] 1.5 {ratio} Normal 0.9-2.4 [facility] Comment on above: Performed By: #### L 100.0100, L501.2450, L500.4050 #### [facility] [address] [place], [address] ALK PHOS 80 U/L Normal 40-129 [facility] Comment on above: Performed By: #### L 100.0100, L501.2450, L500.4050 #### [facility] [address] [place], [address] ALT [Catalytic activity/Vol] 22 U/L Normal <=46 [facility] Comment on above: Performed By: #### L 100.0100, L501.2450, L500.4050 #### [facility] [address] [place], [address] AST [Catalytic activity/Vol] 20 U/L Normal <=37 [facility] Comment on above: Performed By: #### L 100.0100, L501.2450, L500.4050 #### [facility] [address] [place], [address] Bilirubin [Mass/Vol] 0.27 mg/dL Normal 0.00-1.30 [facility] Comment on above: Performed By: #### L 100.0100, L501.2450, L500.4050 #### [facility] [address] [place], [address] BUN/CRE 13.1 RATIO Normal 10-20 [facility] Comment on above: Performed By: #### L 100.0100, L501.2450, L500.4050 #### [facility] [address] [place], [address] Calcium [Mass/Vol] 9.3 mg/dL Normal 7.6-11.0 [facility] Comment on above: Performed By: #### L 100.0100, L501.2450, L500.4050 #### [facility] [address] [place], [address] Chloride [Moles/Vol] 105 mmol/L Normal 98-108 [facility] Comment on above: Performed By: #### L 100.0100, L501.2450, L500.4050 #### [facility] [address] [place], [address] CO2 [Moles/Vol] 26.2 mmol/L Normal 21.0-32.0 [facility] Comment on above: Performed By: #### L 100.0100, L501.2450, L500.4050 #### [facility] [address] [place], [address] Creatinine [Mass/Vol] 1.42 mg/dL High 0.70-1.20 [facility] Comment on above: Performed By: #### L 100.0100, L501.2450, L500.4050 #### [facility] [address] [place], [address] ECRCL 57.85 ml/min Normal 50-250 [facility] Comment on above: Performed By: #### L 100.0100, L501.2450, L500.4050 #### [facility] [address] [place], [address] GAP 7 Normal 5-15 [facility] Comment on above: Performed By: #### L 100.0100, L501.2450, L500.4050 #### [facility] [address] [place], [address] GFR/1.73 sq M.predicted among non-blacks MDRD (S/P/Bld) [Vol rate/Area] 53 mL/min/{1.73_m2} Low >60 [facility] Comment on above: Result Comment: mL/m in/1.73m2 CKD-EPI Creatinine Equation (2020) Performed By: #### L 100.0100, L501.2450, L500.4050 #### [facility] [address] [place], [address] Globulin (S) [Mass/Vol] 2.6 g/dL Normal 2.2-4.2 [facility] Comment on above: Performed By: #### L 100.0100, L501.2450, L500.4050 #### [facility] [address] [place], [address] Glucose [Mass/Vol] 116 mg/dL High 70-99 [facility] Comment on above: Performed By: #### L 100.0100, L501.2450, L500.4050 #### [facility] [address] [place], [address] Potassium [Moles/Vol] 4.5 mmol/L Normal 3.3-5.1 [facility] Comment on above: Performed By: #### L 100.0100, L501.2450, L500.4050 #### [facility] [address] [place], [address] Sodium [Moles/Vol] 138 mmol/L Normal 133-145 [facility] Comment on above: Performed By: #### L 100.0100, L501.2450, L500.4050 #### [facility] [address] [place], [address] T PROT 6.6 g/dL Normal 5.9-8.4 [facility] Comment on above: Performed By: #### L 100.0100, L501.2450, L500.4050 #### [facility] [address] [place], [address] Urea nitrogen [Mass/Vol] 19 mg/dL Normal 4-19 [facility] Comment on above: Performed By: #### L 100.0100, L501.2450, L500.4050 #### [facility] [address] [place], [address] Consultation - Surgicalon Consultation - Surgical [facility] Medical Records Department [address] [place] [address] Consultation - Surgical 01/31/25 1647 MR#: [id number] Acct: [id number] Name: HOLLIE CULLEN Rep #: [id number] : 1950 74 From: Elana Richmond MD [...] Deferred to urology. Elana Richmond M.D. Pager: [phone] [facility] [address] [place] [address], [facility], [address] [place] [address] Office: [phone] HPI Consult Data Date of Consult: 01/31/25 [...] was nothing to do at that time. [facility] Medical History (Updated 01/31/25 @ 17:16 by [...] effort Cardio (more content not included)... Normal [facility] Emergency Department Summary on 01-31-2025 Emergency Department Summary [facility] Medical Records Department [address] [place] [address] Emergency Department Summary 01/31/25 MR#: [id number] Acct: [id number] Name: HOLLIE CULLEN Rep #: [id number] : 1950 74 From: Rashi Lee DO [...] lesions note (more content not included)... Normal [facility] Eosinophil percentageOrdered By: Rashi Lee on 01-31-2025 Eosinophils/100 WBC (Bld) 1.8 % 0-5 [facility] Epithelial cells.squamous LM Ql (Urine sed)Ordered By: Rashi Lee on 01-31-2025 Epithelial cells.squamous LM.HPF (Urine sed) [#/Area] 0 /[HPF] 0-5 [facility] Erythrocyte distribution wid th ratioOrdered By: Rashi Lee on 01-31-2025 Erythrocyte distribution width (RBC) [Ratio] 13.4 % 11.6-14.6 [facility] Erythrocyte distribution wid th standard deviationOrdered By: Rashi Lee on 01-31-2025 Erythrocyte distribution width (RBC) [Entitic vol] 41.7 fL 35.1-43.9 [facility] Estimation of creatinine umang aranceOrdered By: Rashi Lee on 01-31-2025 Estimated Creatinine Clearance Calc 57.85 ml/min 50-250 [facility] GFR/1.73 sq M.predicted gabi g non-blacks MDRD (S/P/Bld) [Vol rate/Area]Ordered By: Rashi Lee on 01-31-2025 Estimated GFR (MDRD) Non-Af Amer 53 Low >60 [facility] Comment on above: mL/min/1.73m2 CKD-EP I Creatinine Equation (2020) Glucose Ql (U)Ordered By: marina Lee on 01-31-2025 Urine Glucose (UA) Normal mg/dl Normal [facility] Hematocrit Auto (Bld) [Volum e fraction]Ordered By: Rashi Lee on 01-31-2025 Hematocrit (Bld) [Volume fraction] 43.8 % 40-54 [facility] Hemoglobin measurementOrdere d By: Rashi Lee on 03-17-2025 Hemoglobin (Bld) [Mass/Vol] 14.7 g/dL 13.0-16.5 [facility] Immature granulocytes/100 WB C Auto (Bld)Ordered By: Rashi Lee on 01-31-2025 Immature granulocytes/100 WBC (Bld) 0.100 % 0.0-0.9 [facility] Comment on above: IG% - Immature Granu locytes (promyelocytes, myelocytes and metamyelocytes) > 1% indicates that a LEFT SHIFT is Present. Ketones Test strip Ql (U)Ord ered By: Rashi Lee on 01-31-2025 Ketones Ql (U) Negative Negative [facility] Laboratory - Chemistry and C hemistry - challengeOrdered By: Rashi Lee on 01-31-2025 AST [Catalytic activity/Vol] 20 U/L <38 [facility] Lipaseon 01-31-2025 Lipase [Catalytic activity/Vol] 31 U/L Normal 13-75 [facility] Comment on above: Result Comment: Prashanth weathers note: LIPASE revised reference range effective 23. New Lipase methodology. Expected to produce lower values than the previous assay method. NEW Reference Range: 13 - 75 U/L Performed By: #### L 100.0100, L501.2450, L500.4050 #### [facility] [address] [place], [address] Lipase measurementOrdered By : Rashi Lee on 01-31-2025 Lipase [Catalytic activity/Vol] 31 U/L 13-75 [facility] Comment on above: Please note:LIPASE r evised reference range effective 23. New Lipase methodology. Expected to produce lower values than the previous assay method. NEW Reference Range: 13 - 75 U/L Lymphocytes Auto (Unsp spec) [#/Vol]Ordered By: Rashi Lee on 01-31-2025 Lymphocytes (Bld) [#/Vol] 1.21 10*3/uL 0.83-4.51 [facility] Lymphocytes/100 WBC Auto (Un sp spec)Ordered By: Rashi Lee on 01-31-2025 Lymphocytes/100 WBC (Bld) 16.0 % Low 19-41 [facility] MCV (mean corpuscular volume ) determinationOrdered By: Rashi Lee on 01-31-2025 MCV (RBC) [Entitic vol] 84.7 fL 80-94 [facility] Mean corpuscular hemoglobin (MCH) determinationOrdered By: Rashi Lee on 01-31-2025 MCH (RBC) [Entitic mass] 28.4 pg 27.0-32.0 [facility] Mean corpuscular hemoglobin concentration (MCHC) determinationOrdered By: Rashi Lee on 01-31-2025 MCHC (RBC) [Mass/Vol] 33.6 g/dL 32-36 [facility] Mean platelet volume determi nationOrdered By: Rashi Lee on 01-31-2025 Platelet mean volume (Bld) [Entitic vol] 10.3 fL 6.2-12.0 [facility] Microscopic analysis of urin e for red blood cells (RBC)Ordered By: Rashi Lee on 01-31-2025 Urine RBC 5-10 SEEN /hpf 0-5 [facility] Monocyte percentageOrdered B y: Rashi Lee on 01-31-2025 Monocytes/100 WBC (Bld) 10.8 % High 0-10 [facility] Mucus LM Ql (Urine sed)Order ed By: Rashi eLe on 01-31-2025 Mucus Ql (Urine sed) 0 SEEN /hpf [facility] Neutrophil percentageOrdered By: Rashi Lee on 01-31-2025 Neutrophils/100 WBC (Bld) 70.8 % High 47-70 [facility] Nitrite Test strip Ql (U)Ord ered By: Rashi Lee on 01-31-2025 Nitrite Ql (U) Negative Negative [facility] Nucleated red blood cell per centageOrdered By: Rashi Lee on 01-31-2025 Nucleated RBC/100 WBC (Bld) [Ratio] 0 % 0-5 [facility] Platelet countOrdered By: Star Lee on 01-31-2025 Platelets (Bld) [#/Vol] 188 10*3/uL 150-450 [facility] Potassium (Unsp spec) [Mass/ Vol]Ordered By: Rashi Lee on 01-31-2025 Potassium [Moles/Vol] 4.5 mmol/L 3.3-5.1 [facility] Protein Test strip Ql (U)Ord ered By: Rashi Lee on 01-31-2025 Protein Ql (U) 15 mg/dl High Negative [facility] RBC Auto (Bld) [#/Vol]Ordere d By: Rashi Lee on 01-31-2025 RBC (Bld) [#/Vol] 5.17 10*6/uL 4.6-6.2 [facility] Serum creatinine measurement (mass/volume)Ordered By: Rashi Lee on 01-31-2025 Creatinine [Mass/Vol] 1.42 mg/dL High 0.70-1.20 [facility] Serum globulin measurementOr dered By: Rashi Lee on 01-31-2025 Globulin (S) [Mass/Vol] 2.6 g/dL 2.2-4.2 [facility] Serum glucose measurement (m ass/volume)Ordered By: Rashi Lee on 01-31-2025 Glucose [Mass/Vol] 116 mg/dL High 70-99 [facility] Serum or plasma alanine crevantes otransferase (ALT) measurementOrdered By: Rashi Lee on 01-31-2025 ALT [Catalytic activity/Vol] 22 U/L <47 [facility] Serum or plasma albumin rayshawn urement (mass/volume)Ordered By: Rashi Lee on 01-31-2025 Albumin [Mass/Vol] 4.0 g/dL 3.4-4.8 [facility] Serum or plasma albumin/glob ulin mass ratioOrdered By: Rashi Lee on 01-31-2025 Albumin/Globulin [Mass ratio] 1.5 {ratio} 0.9-2.4 [facility] Serum or plasma alkaline luc sphatase measurementOrdered By: Rashi Lee on 01-31-2025 ALP [Catalytic activity/Vol] 80 U/L 40-129 [facility] Serum or plasma calcium rayshawn urement (mass/volume)Ordered By: Rashi Lee on 01-31-2025 Calcium [Mass/Vol] 9.3 mg/dL 7.6-11.0 [facility] Serum or plasma urea nitroge n measurement (mass/volume)Ordered By: Rashi Lee on 01-31-2025 Urea nitrogen [Mass/Vol] 19 mg/dL 4-19 [facility] Sodium levelOrdered By: Satish Lee on 01-31-2025 Sodium [Moles/Vol] 138 mmol/L 133-145 [facility] Total proteinOrdered By: Aquiles Lee on 01-31-2025 Protein [Mass/Vol] 6.6 g/dL 5.9-8.4 [facility] Urinalysis, Completeon 01-31 BACTERIA 3+ /hpf Normal None Seen [facility] Comment on above: Order Comment: CLEAN CATCH Performed By: #### L 400.0001 ####[facility] [address] [place], [address] EPI,SQUAMOUS 0-5 SEEN Normal 0-5 [facility] Comment on above: Order Comment: CLEAN CATCH Performed By: #### L 400.0001 ####[facility] [address] [place], [address] RBC 5-10 SEEN Normal 0-5 [facility] Comment on above: Order Comment: CLEAN CATCH Performed By: #### L 400.0001 ####[facility] [address] [place], [address] WBC 50-100 SEEN Normal 0-5 [facility] Comment on above: Order Comment: CLEAN CATCH Performed By: #### L 400.0001 ####[facility] [address] [place], [address] Mucus Ql (Urine sed) 0 SEEN Normal [facility] Comment on above: Order Comment: CLEAN CATCH Performed By: #### L 400.0001 ####[facility] [address] [place], [address] Urine blood detectionOrdered By: Rashi Lee on 01-31-2025 Urine Occult Blood 25 /ul High Negative [facility] Urine clarityOrdered By: Aquiles Lee on 01-31-2025 Clarity (U) Cloudy Clear [facility] Urine color determinationOrd ered By: Rashi eLe on 01-31-2025 Color (U) Yellow Yellow [facility] Urine cultureOrdered By: Aquiles Lee on 01-31-2025 Bacteria identified Cx Nom (U) Streptococcus mitis/ oralis Abnormal [facility] Urine leukocyte esterase det ection by dipstickOrdered By: Rashi Lee on 01-31-2025 Leukocyte esterase Test strip Ql (U) 500 /ul High Negative [facility] Urine pHOrdered By: Rashi ayala on 01-31-2025 pH (U) 6.0 [pH] 5.0 - 8.0 [facility] Urine sediment bacteria coun t by microscopy (number/high power field)Ordered By: Rashi Lee on 01-31-2025 Bacteria LM.HPF (Urine sed) [#/Area] 3 /[HPF] None Seen [facility] Urine specific gravity measu rementOrdered By: Rashi Lee on 01-31-2025 Specific gravity (U) [Rel density] 1.015 1.002-1.030 [facility] Urobilinogen Ql (U)Ordered B y: Rashi Lee on 01-31-2025 Urine Urobilinogen Normal mg/dl Normal [facility] White blood cell (WBC) count Ordered By: Rashi Lee on 01-31-2025 WBC (Bld) [#/Vol] 7.6 10*3/uL 4.4-11.0 [facility] White blood cell countOrdere d By: Rashi Lee on 01-31-2025 Urine WBC 50-100 SEEN /hpf 0-5 [facility] CNPNon 06-24-2024 CNPN Telephone (INTMWS) GIOHOLLIE ([id number]) 1950 M Date Time Provider Department 06/24/24 [...] Date Reviewed: 06/14/2024 Reviewed by: Isael Lebron APRN.TELETYPE OPERATOR - Fully Assessed Reason for Visit: Patient Question [6062] Prescriptions as of 06/28/2024 - simvastatin (ZOCOR) [...] Encounter Status:Closed by BEATRICE PARKER on 06/28/24 [facility] CNCOon 06-16-2024 CNCO Letter Text [facility] CNOVon 06-14-2024 CNOV Office Visit (PULMWS ) GIO,HOLLIE Robles ([id number]) 1950 M Date Time Provider Department 06/14/24 [...] here for annual follow-up. Impression / Recommendations Holile Cullen presents for annual lung cancer screening [...] which included preparing to see the patient, xblz-pf-ijov patient care, completing clinical documentation, performing a medically appropriate examination, counseling and educating the patient/family/caregive r, ordering medications, tests, or procedures, communicating with other HCPs (not separately reported), independently interpreting results (not separately reported), communicating results to the patient/family/caregive r, and care coordination (not separately reported). Isael Lebron APRN.[facility] June 14, 2024 8:48 AM History [...] maintenance inhaler for COPD. Modified Medical Research [place] Dyspnea Scale (MMRC) I only get breathless with strenous exercise 0 Last 12 Encounter Wt Readings: Date: Wt: 03/18/2024 101.6 kg (224 lb) 01/13/2024 103.9 kg (229 lb) 05/28/2023 100.7 kg (222 lb) 03/13/2023 102.5 kg (more content not included)... Normal [facility] CT LUNG SCREEN WO IVCONon CT LUNG SCREEN WO IVCON * * *Final Report* * * DATE OF EXAM: Jun 14 2024 8:24AM [facility] 0562 - CT LUNG SCREEN WO IVCON [...] without contrast. MQ: CTLCS_6 Patient characteristics: * Pudg-eb-Boqhb: 1950; Age at exam: 73 years * Gender: Male * Lung Disease: Asymptomatic (no signs or symptoms of lung disease) * Number of Pack Years: 28 * Current smoker (=0) or Number of Years since Quit: 0 * Ordering provider and NPI: ISAEL LEBRON [id number] * Interpreting radiologist and NPI: Da [id number] Exam acquisition parameters: * Exam Date: 06/14/2024 8:24 AM * Site: [facility] * * CT System Deep Tissue Massage Therapist: Nextiva * CT System Model: Sensation * Tube [...] 12 months. Other actionable findings: ====== Reference: [employer]. Lung CT Screening Reporting and Data System (Lung-RADS). Available at: http://www.acr.org/Qual ity-Safety/Resources/Polina ngRADS Side Panel Hanger: ASHLEY Transcribe Date/Time: Jun 15 2024 9:32A Dictated by : JIMBO SORIANO MD This examination was interpreted and the report reviewed and electronically signed by: JIMBO SORIANO MD on Jun 15 2024 9:39AM EST [id number] Normal [facility] K[facility] - right 3 Viewson No acute fracture or dislocation. Iewl-sq-xupiwwvo tricompartmental arthritic changes. Signed by: Donald Jacques 01/01/2024 10:39 AM Dictation workstation: [id number] MMODAL Interpreted By: Donald Riggs, STUDY: XR KNEE RIGHT 3 VIEWS; 01/01/2024 9:55 am INDICATION: Signs/Symptoms:medial knee pain x 2 weeks, NKI. COMPARISON: None. ACCESSION NUMBER(S): [id number] ORDERING CLINICIAN: TRELL GOLDMAN FINDINGS: Three views of the right knee are obtained. Medial and patellofemoral joint space loss. Tricompartmental osteophytes. No erosions. No acute fracture-dislocation. MMODAL Donald Jacques MD - 01/01/2024 Interpreted By: Donald Jacques, STUDY: XR KNEE RIGHT 3 VIEWS; 01/01/2024 9:55 am INDICATION: Signs/Symptoms:medial knee pain x 2 weeks, NKI. COMPARISON: None. ACCESSION NUMBER(S): [id number] ORDERING CLINICIAN: TRELL GOLDMAN FINDINGS: Three views of the right knee are obtained. Medial and patellofemoral joint space loss. Tricompartmental osteophytes. No erosions. No acute fracture-dislocation. IMPRESSION: No acute fracture or dislocation. Iaaz-ze-xlhsektc tricompartmental arthritic changes. Signed by: Donald Jacques 01/01/2024 10:39 AM Dictation workstation: [id number] [facility] Work Phone: Radiology Study observation (narrative) [facility] Work Phone: XR Knee - right 3 ViewsOrder ed By: Donald Jacques on 01-01-2024 [facility] Work Phone: No Panel Informationon 06-10 Prostate Specific Antigen Screen 0.96 ng/mL 0.00-4.00 [facility] Comment on above: This test was perfor med using the TPSA assay method for theBuildZoom chemistry system. Values obtained with differentassay methods [...] SIGNS: T PRBP SpO2O2(LPM) %FiO2 Method 05-Nov-2022 09:19:[id number]/7 5 96 MDM MDM/ED COURSE: Discussed Findings [...] ill patient: no Electronic Signatures: Trell Goldman (OUTSEWER-TELETYPE OPERATOR) (Signed 05-Nov-2022 09:38) Authored: ED Notes, HPI, PMH, ROS, PE, Results/Vital Signs, MDM/ED Course, Clinical Impression, Attestation, Chart Review, Scores Last Updated: 05-Nov-2022 09:38 by Trell Goldman (OUTSEWER-TELETYPE OPERATOR) [facility] Vital Signs Date Time Vital Sign Value Performing Clinician Facility 04-24-2025 00:44-0400 Diastolic blood pressure 64 mm[Hg] Justina Kim MD Work Phone: [facility] 04-24-2025 00:44-0400 Heart rate 70 /min Justina Kim MD Work Phone: [facility] 04-24-2025 00:44-0400 Respiratory rate 12 /min Justina Kim MD Work Phone: [facility] 04-24-2025 00:44-0400 SaO2% (BldA) [Mass fraction] 95 % Justina Kim MD Work Phone: [facility] 04-24-2025 00:44-0400 Systolic blood pressure 137 mm[Hg] Justina Kim MD Work Phone: [facility] 04-23-2025 22:01-0400 Body mass index (BMI) [Ratio] 32.43 kg/m2 Justina Kim MD Work Phone: [facility] 04-23-2025 22:01-0400 Body temperature 97.81 [degF] Justina Kim MD Work Phone: [facility] 04-23-2025 22:01-0400 Body weight 102.51 kg Justina Kim MD Work Phone: [facility] 03-18-2025 09:11-0400 Body height 178 cm Erwin Garcia MD Work Phone: [facility] 03-18-2025 09:11-0400 Body mass index (BMI) [Ratio] 32.41 kg/m2 Erwin Garcia MD Work Phone: [facility] 03-18-2025 09:11-0400 Body temperature 98.1 [degF] Erwin Garcia MD Work Phone: [facility] 03-18-2025 09:11-0400 Body weight 102.7 kg Erwin Garcia MD Work Phone: [facility] 03-18-2025 09:11-0400 Diastolic blood pressure 72 mm[Hg] Erwin Garcia MD Work Phone: [facility] 03-18-2025 09:11-0400 Heart rate 77 /min Erwin Garcia MD Work Phone: [facility] 03-18-2025 09:11-0400 SaO2% (BldA) [Mass fraction] 99 % Erwin Garcia MD Work Phone: [facility] 03-18-2025 09:11-0400 Systolic blood pressure 112 mm[Hg] Erwin Garcia MD Work Phone: [facility] 02-27-2025 08:05-0400 Inhaled oxygen flow rate 2 L/min Dr. Rashi Lee DO Work Phone: [facility] 02-27-2025 08:01-0400 Body temperature 98.4 [degF] Dr. Rashi Lee DO Work Phone: [facility] 02-27-2025 08:01-0400 Diastolic blood pressure 73 mm[Hg] Dr. Rashi Lee DO Work Phone: [facility] 02-27-2025 08:01-0400 Heart rate 71 /min Dr. Rashi Lee DO Work Phone: 0(907)894-629702 [place] [address] 02-27-2025 08:01-0400 Respiratory rate 14 /min Dr. Rashi Lee DO Work Phone: 9(790)761-718602 [place] [address] 02-27-2025 08:01-0400 SaO2% (BldA) [Mass fraction] 94 % Dr. Rashi Lee DO Work Phone: 0(960)432-982202 [place] [address] 02-27-2025 08:01-0400 Systolic blood pressure 138 mm[Hg] Dr. Rashi Lee DO Work Phone: 9(948)210-757002 [place] [address] 02-25-2025 11:29-0400 Body height 177.[address] Rashi Lee DO Work Phone: 4(015)761-551702 [place] [address] 02-25-2025 11:29-0400 Body mass index (BMI) [Ratio] 33 kg/m2 Dr. Rashi Lee DO Work Phone: 8(052)723-662802 [place] [address] 02-25-2025 11:29-0400 Body weight 104.[address] Rashi Lee DO Work Phone: 4(586)621-329402 [place] [address] 02-07-2025 09:39-0400 Body mass index (BMI) [Ratio] 33.5 kg/m2 Dr. Rashi Lee DO Work Phone: 0(046)949-350302 [place] [address] 02-07-2025 09:39-0400 Body weight 106.[address] Rashi Lee DO Work Phone: 9(431)256-977202 [place] [address] 02-07-2025 09:39-0400 Diastolic blood pressure 75 mm[Hg] Dr. Rashi Lee DO Work Phone: 5(553)903-399402 [place] [address] 02-07-2025 09:39-0400 Heart rate 84 /min Dr. Rashi Lee DO Work Phone: 8(014)123-192202 [place] [address] 02-07-2025 09:39-0400 Respiratory rate 17 /min Dr. Rashi Lee DO Work Phone: 9(104)673-115002 [place] [address] 02-07-2025 09:39-0400 SaO2% (BldA) [Mass fraction] 95 % Dr. Rashi Lee DO Work Phone: 5(845)647-995202 [place] [address] 02-07-2025 09:39-0400 Systolic blood pressure 115 mm[Hg] Dr. Rashi Lee DO Work Phone: 6(850)294-759002 [place] [address] 01-31-2025 17:53-0400 Body temperature 98.1 [degF] Dr. Rashi Lee DO Work Phone: 8(941)572-896402 [place] [address] 01-31-2025 17:53-0400 Diastolic blood pressure 78 mm[Hg] Dr. Rashi Lee DO Work Phone: 6(076)720-555202 [place] [address] 01-31-2025 17:53-0400 Heart rate 65 /min Dr. Rashi Lee DO Work Phone: 9(107)907-934102 [place] [address] 01-31-2025 17:53-0400 Respiratory rate 15 /min Dr. Rashi Lee DO Work Phone: 1(336)675-156302 [place] [address] 01-31-2025 17:53-0400 SaO2% (BldA) [Mass fraction] 93 % Dr. Rashi Lee DO Work Phone: 8(508)763-239602 [place] [address] 01-31-2025 17:53-0400 Systolic blood pressure 137 mm[Hg] Dr. Rashi Lee DO Work Phone: 5(069)948-152802 [place] [address] 01-31-2025 10:04-0400 Body height 177.[address] Rashi Lee DO Work Phone: 2(925)916-284902 [place] [address] 01-31-2025 10:04-0400 Body mass index (BMI) [Ratio] 34.1 kg/m2 Dr. Rashi Lee DO Work Phone: 3(425)947-783202 [place] [address] 01-31-2025 10:04-0400 Body weight 107.[address] Rashi Lee DO Work Phone: 3(152)069-707602 [place] [address] 03-18-2024 09:17-0400 Body height 177.8 cm Erwin Garcia MD Work Phone: [facility] 03-18-2024 09:17-0400 Body mass index (BMI) [Ratio] 32.14 kg/m2 Erwin Garcia MD Work Phone: [facility] 03-18-2024 09:17-0400 Body temperature 97.3 [degF] Erwin Garcia MD Work Phone: [facility] 03-18-2024 09:17-0400 Body weight 101.61 kg Erwin Garcia MD Work Phone: [facility] 03-18-2024 09:17-0400 Diastolic blood pressure 70 mm[Hg] Erwin Garcia MD Work Phone: [facility] 03-18-2024 09:17-0400 Heart rate 76 /min Erwin Garcia MD Work Phone: [facility] 03-18-2024 09:17-0400 Respiratory rate 18 /min Erwin Garcia MD Work Phone: [facility] 03-18-2024 09:17-0400 Systolic blood pressure 118 mm[Hg] Erwin Garcia MD Work Phone: [facility] 01-13-2024 10:31-0500 Body weight 103.87 kg Elisha Velásquez OUTSEWER.DISCHARGE RN Work Phone: [facility] 01-13-2024 10:31-0500 Diastolic blood pressure 80 mm[Hg] Elisha Velásquez OUTSEWER.DISCHARGE RN Work Phone: [facility] 01-13-2024 10:31-0500 Heart rate 71 /min Elisha Velásquez OUTSEWER.DISCHARGE RN Work Phone: [facility] 01-13-2024 10:31-0500 SaO2% (BldA) [Mass fraction] 94 % Elisha Velásquez OUTSEWER.DISCHARGE RN Work Phone: [facility] 01-13-2024 10:31-0500 Systolic blood pressure 126 mm[Hg] Elisha Velásquez OUTSEWER.DISCHARGE RN Work Phone: [facility] 01-01-2024 09:20-0500 Body height 177.8 cm Trell Goldman OUTSEWER-TELETYPE OPERATOR Work Phone: [facility] 01-01-2024 09:20-0500 Body mass index (BMI) [Ratio] 31.57 kg/m2 Trell Jesusenijennie OUTSEWER-TELETYPE OPERATOR Work Phone: [facility] 01-01-2024 09:20-0500 Body temperature 98.71 [degF] Trell Jesusenijennie OUTSEWER-TELETYPE OPERATOR Work Phone: [facility] 01-01-2024 09:20-0500 Body weight 99.79 kg Trell Jesusenijennie OUTSEWER-TELETYPE OPERATOR Work Phone: [facility] 01-01-2024 09:20-0500 Diastolic blood pressure 74 mm[Hg] Trell Leeenijennie OUTSEWER-TELETYPE OPERATOR Work Phone: [facility] 01-01-2024 09:20-0500 Heart rate 74 /min Trell Jesusenijennie OUTSEWER-TELETYPE OPERATOR Work Phone: [facility] 01-01-2024 09:20-0500 Respiratory rate 16 /min Trell Jesusenijennie OUTSEWER-TELETYPE OPERATOR Work Phone: [facility] 01-01-2024 09:20-0500 SaO2% (BldA) [Mass fraction] 94 % Trell Leeenijennie OUTSEWER-TELETYPE OPERATOR Work Phone: [facility] 01-01-2024 09:20-0500 Systolic blood pressure 111 mm[Hg] Trell Goldman OUTSEWER-TELETYPE OPERATOR Work Phone: [facility] 05-28-2023 10:28-0400 Body weight 100.7 kg Isael Lebron OUTSEWER.TELETYPE OPERATOR Work Phone: [facility] 05-28-2023 10:28-0400 Diastolic blood pressure 78 mm[Hg] Isael Lebron OUTSEWER.TELETYPE OPERATOR Work Phone: [facility] 05-28-2023 10:28-0400 Heart rate 50 /min Isael Lebron OUTSEWER.TELETYPE OPERATOR Work Phone: [facility] 05-28-2023 10:28-0400 Respiratory rate 17 /min Isael Lebron OUTSEWER.TELETYPE OPERATOR Work Phone: [facility] 05-28-2023 10:28-0400 SaO2% (BldA) [Mass fraction] 98 % Isael Lebron OUTSEWER.TELETYPE OPERATOR Work Phone: [facility] 05-28-2023 10:28-0400 Systolic blood pressure 122 mm[Hg] Isael Lebron OUTSEWER.TELETYPE OPERATOR Work Phone: [facility] 03-13-2023 08:03-0400 Body height 180.3 cm Erwin Garcia MD Work Phone: [facility] 03-13-2023 08:03-0400 Body weight 102.51 kg Erwin Garcia MD Work Phone: [facility] 03-13-2023 08:03-0400 Diastolic blood pressure 70 mm[Hg] Erwin Garcia MD Work Phone: [facility] 03-13-2023 08:03-0400 Heart rate 68 /min Erwin Garcia MD Work Phone: [facility] 03-13-2023 08:03-0400 Respiratory rate 16 /min Erwin Garcia MD Work Phone: [facility] 03-13-2023 08:03-0400 Systolic blood pressure 118 mm[Hg] Erwin Garcia MD Work Phone: [facility] 04-04-2022 10:29-0400 Body temperature 97.3 [degF] Madeline Saucedo OUTSEWER.TELETYPE OPERATOR Work Phone: [facility] 04-04-2022 10:29-0400 Body weight 101.24 kg Madeline Saucedo OUTSEWER.TELETYPE OPERATOR Work Phone: [facility] 04-04-2022 10:29-0400 Diastolic blood pressure 62 mm[Hg] Madeline Sheryl OUTSEWER.TELETYPE OPERATOR Work Phone: [facility] 04-04-2022 10:29-0400 Heart rate 97 /min Madeline Sheryl OUTSEWER.TELETYPE OPERATOR Work Phone: [facility] 04-04-2022 10:29-0400 Respiratory rate 21 /min Madeline Sheryl OUTSEWER.TELETYPE OPERATOR Work Phone: [facility] 04-04-2022 10:29-0400 SaO2% (BldA) [Mass fraction] 96 % Madeline Sheryl OUTSEWER.TELETYPE OPERATOR Work Phone: [facility] 04-04-2022 10:29-0400 Systolic blood pressure 118 mm[Hg] Madeline Sheryl OUTSEWER.TELETYPE OPERATOR Work Phone: [facility] 03-08-2022 13:59-0400 Body weight 102.06 kg Khadijah Older OUTSEWER.TELETYPE OPERATOR Work Phone: [facility] 03-08-2022 13:59-0400 Diastolic blood pressure 76 mm[Hg] Khadijah Older OUTSEWER.TELETYPE OPERATOR Work Phone: [facility] 03-08-2022 13:59-0400 Heart rate 74 /min Khadijah Older OUTSEWER.TELETYPE OPERATOR Work Phone: [facility] 03-08-2022 13:59-0400 Respiratory rate 12 /min Khadijah Older OUTSEWER.TELETYPE OPERATOR Work Phone: [facility] 03-08-2022 13:59-0400 SaO2% (BldA) [Mass fraction] 95 % Khadijah Older OUTSEWER.TELETYPE OPERATOR Work Phone: [facility] 03-08-2022 13:59-0400 Systolic blood pressure 116 mm[Hg] Khadijah Older OUTSEWER.TELETYPE OPERATOR Work Phone: [facility] Encounters Encounter Date Encounter Type Care Provider Facility Start: 04-23-2025 End: 04-24-2025 Emergency department patient visit Justina Kim MD Work Phone: [facility] Comment on above: Calculus of gallblad yaritza without cholecystitis without obstruction (Primary Dx); Biliary colic Start: 03-18-2025 End: 03-18-2025 ambulatory ERWIN GARCIA Facility:[facility] Start: 03-18-2025 End: 03-18-2025 Patient encounter procedure Erwin Garcia MD Work Phone: [facility] Comment on above: Medicare annual well ness [...] Start: 03-15-2025 End: 03-15-2025 ambulatory KHADIJAH RAMAN Facility:[facility] Start: 03-14-2025 End: 03-14-2025 Telephone encounter Erwin Garcia MD Work Phone: [facility] Comment on above: Lab Orders Start: 03-02-2025 End: 03-02-2025 Refill Erwin Garcia MD Work Phone: [facility] Comment on above: Refill Request Start: 02-25-2025 End: 02-27-2025 ambulatory Erwin Garcia Facility:[facility] Start: 02-25-2025 End: 02-27-2025 Evaluation and management of inpatient Dr. Los Romero MD -[facility] Work Phone: Start: 02-25-2025 End: 02-27-[address] Rashi Lee DO Work Phone: [facility] Work Phone: Start: 02-15-2025 End: 02-15-2025 ambulatory Migel Meléndez Facility:[facility] Start: 02-15-2025 End: 02-15-2025 Non-patient / Non-visit Dr. Migel Meléndez MD -[facility] Work Phone: Start: 02-14-2025 End: 02-14-[address] Elana Richmond MD -[facility] Work Phone: Start: 02-14-2025 End: 02-14-2025 ambulatory Erwin Garcia Facility:[facility] Start: 02-07-2025 End: 02-07-[address] Elana Richmond MD -[facility] Work Phone: Start: 02-07-2025 End: 02-07-2025 ambulatory Erwin Garcia Facility:[facility] Start: 01-31-2025 Non-patient / Non-visit Dr. Paulino Richmond MD -[facility] Start: 01-31-2025 End: 01-31-2025 ambulatory Erwin Garcia MD Work Phone: [facility] Comment on above: Abdominal Pain Start: 01-31-2025 End: 01-31-2025 Emergency department patient visit Dr. Rashi Lee DO Work Phone: -Emergency Department Work Phone: Start: 10-25-2024 End: 10-25-2024 Refill Erwin Garcia MD Work Phone: [facility] Comment on above: Refill Request Start: 07-08-2024 End: 07-09-2024 Refill Erwin Garcia MD Work Phone: [facility] Comment on above: Refill Request Start: 06-24-2024 Telephone encounter Erwin cadena MD Work Phone: [facility] Comment on above: Patient Question Start: 06-14-2024 End: 06-14-2024 Patient encounter procedure Isael Lebron OUTSEWER.TELETYPE OPERATOR Work Phone: Pulmonary Medicine Comment on above: Multiple lung nodule s (Primary Dx); Encounter for screening for lung cancer; Tobacco use current Start: 06-14-2024 End: 06-14-2024 ambulatory ISAEL LEBRON Facility:[facility] Start: 06-14-2024 End: 06-14-2024 Subsequent hospital visit by physician [facility] ([facility]) Work Phone: Cat Scan Comment [...] Erwin cadena MD Work Phone: [facility] Comment on above: Lab Orders Start: 01-13-2024 Telephone encounter Elisha todd OUTSEWER.DISCHARGE RN Work Phone: [facility] Start: 01-13-2024 End: 01-13-2024 Office outpatient visit 15 minutes Elisha Velásquez OUTSEWER.DISCHARGE RN Work Phone: [facility] Comment on above: Acute pain of right knee (Primary Dx) Start: 01-01-2024 End: 01-01-2024 Subsequent hospital visit by physician Prakash X-[facility] Comment on above: Injury of right knee , initial encounter Start: 01-01-2024 End: 01-01-2024 Patient encounter procedure Trell Goldman OUTSEWER-TELETYPE OPERATOR Work Phone: [facility] Comment on above: Injury of right knee , initial encounter (Primary Dx) Start: 12-22-2023 Refill Erwin fox MD Work Phone: [facility] Comment on above: Refill Request Start: 07-25-2023 Refill Erwin fox MD Work Phone: [facility] Comment on above: Refill Request Start: 06-13-2023 Telephone encounter Isael pastrana OUTSEWER.TELETYPE OPERATOR Work Phone: [facility]monary Comment on above: Results Start: 06-10-2023 End: 06-10-[address] [facility] Work Phone: Start: 06-10-2023 End: 06-10-2023 Patient encounter procedure [facility] Work Phone: Start: 06-02-2023 Telephone encounter Erwin cadena MD Work Phone: [facility] Comment on above: Results Start: 05-31-2023 Orders Only Erwin fox MD Work Phone: [facility] Comment on above: Hydroureteronephrosi s (Primary Dx); Stage 3a chronic kidney disease (HCC) Start: 05-28-2023 End: 05-28-2023 Patient encounter procedure Isael Bernardino PORRASTELETYPE OPERATOR Work Phone: Pulmonary Medicine Comment on above: Encounter for screen ing for lung cancer (Primary Dx); Tobacco use current Start: 03-13-2023 End: 03-13-2023 Patient encounter procedure Erwin Garcia MD Work Phone: [facility] Comment on above: Medicare annual well ness visit, subsequent (Primary Dx); Hyperlipidemia, unspecified hyperlipidemia type; Tobacco use disorder; Stage 3a chronic kidney disease (HCC); Impaired fasting glucose; BPH with obstruction/lower urinary tract symptoms; Special screening for malignant neoplasms, colon Start: 01-02-2023 Refill Erwin fox MD Work Phone: [facility] Comment on above: Refill Request Start: 12-23-2022 Refill Erwin fox MD Work Phone: [facility] Comment on above: Refill Request Orders Start: 11-05-2022 End: 11-05-2022 Emergency department patient visit Ms. Trell Goldman Facility:[id number] Start: 04-05-2022 Telephone encounter Aaron Reilly MD Work Phone: [facility] Comment on above: Results (COVID+) Start: 04-04-2022 End: 04-04-2022 Patient encounter procedure Madeline Saucedo OUTSEWER.TELETYPE OPERATOR Work Phone: [facility] Comment on above: Exposure to COVID-19 virus (Primary Dx); Upper respiratory symptom Start: 03-08-2022 End: 03-08-2022 Patient encounter procedure Khadijah Cramer APRN.TELETYPE OPERATOR Work Phone: [facility] Comment on [...] Rashi Lee DO Work Phone: Start: 03-18-2024 [employer] COVI D-19 VACCINE (2022- SEASON) AGE 12+ YR Erwin Garcia MD Work Phone: Start: 03-18-2024 Adult depression scr eening assessment Isael Brownpster OUTSEWER.TELETYPE OPERATOR Work Phone: Start: 03-16-2024 Lipid 1996 panel - S diego or Plasma Erwin Garcia MD Work Phone: Start: 01-01-2024 Radiologic examinati on knee 3 views Trell Goldman OUTSEWER-TELETYPE OPERATOR Work Phone: Start: 06-12-2023 Colonoscopy Isael Lex zeina OUTSEWER.TELETYPE OPERATOR Work Phone: Start: 02-17-2023 Lipid 1996 panel - S diego or Plasma Erwin Garcia MD Work Phone: Start: 03-08-2022 Adult depression scr eening assessment Khadijah Older OUTSEWER.TELETYPE OPERATOR Work Phone: Start: 08-19-2018 Colonoscopy Khadijah Older OUTSEWER.TELETYPE OPERATOR Work Phone: Plan of Treatment Date Care Activity Detail Author Start: 06-12-2033 Screening for malign ant neoplasm of colon [facility] Start: 03-15-2030 Lipid panel Lipid Screening [facility] Start: 03-16-2029 Lipid panel Lipid Screening [facility] Start: 06-12-2028 Colonoscopy COLONOSCOPY [facility] Start: 06-12-2028 COLORECTAL CANCER SCREENING COLORECTAL CANCER SCREENING [facility] Start: 06-12-2028 Screening for malign ant neoplasm of colon [facility] Start: 03-15-2028 Diabetes Screening Diabetes Screenin g [facility] Start: 02-18-2028 Lipid panel Lipid Screening [facility] Start: 02-18-2028 LIPID SCREEN LIPID SCREEN [facility] Start: 04-04-2027 DTaP/Tdap/Td Vaccine s (2 - Td or Tdap) DTaP/Tdap/Td Vaccines (2 - Td or Tdap) [facility] Start: 04-04-2027 Urine microalbumin profile [facility] Start: 03-16-2027 Diabetes Screening Diabetes Screenin g [facility] Start: 02-26-2027 LIPID SCREEN LIPID SCREEN [facility] Start: 03-22-2026 End: 03-22-2026 Patient encounter procedure 03/22/2026 9:20 AM EDT Office Visit [facility] [address] [place] [address] Erwin Garcia MD [address] [place] [address] medicare wellness [facility] Comment on above: medicare wellness Start: 03-18-2026 Annual PCP Team Wallcovering Texturer faith Disease Visit Annual PCP Team Chronic Disease Visit [facility] Start: 03-18-2026 Anxiety Screening Anxiety Screening [facility] Start: 03-18-2026 Depression Screening Depression Scre ing [facility] Start: 03-15-2026 Complete blood count Hemoglobin/Avelino tocrit [facility] Start: 03-15-2026 Creatinine measurement Serum Creatin ine [facility] Start: 03-15-2026 Hemoglobin A1c measurement Diabetes: Hemoglobin A1C [facility] Start: 02-17-2026 DIABETES SCREEN DIABETES SCREEN [facility] Start: 02-17-2026 Diabetes Screening Diabetes Screenin g [facility] Start: 06-20-2025 End: 06-20-2025 Patient encounter procedure Cat Scan Comment on above: Yearly LDCT Yearly LCS Start: 06-14-2025 Screening for malign ant neoplasm of lung Lung Cancer Screening [facility] Start: 03-18-2025 Annual PCP Team Wallcovering Texturer faith Disease Visit Annual PCP Team Chronic Disease Visit [facility] Start: 03-18-2025 Anxiety Screening Anxiety Screening [facility] Start: 03-18-2025 Depression Screening Depression Scre ing [facility] Start: 03-18-2025 End: 03-18-2025 Patient encounter procedure 03/18/2025 9:00 AM EDT Office Visit [facility] [address] [place] [address] Erwin Garcia MD [address] [place] [address] Medicare Wellness [facility] Comment on above: Medicare Wellness Start: 03-16-2025 Complete blood count Hemoglobin/Avelino tocrit [facility] Start: 03-16-2025 Creatinine measurement Serum Creatin ine [facility] Start: 03-14-2025 End: 06-13-2025 CBC panel - Blood by Automated count COMPLETE BLOOD COUNT Lab Routine Stage 3a chronic kidney disease (HCC) Expected: 03/14/2025, Expires: 06/13/2025 [facility] Comment on above: Expected: 03/14/2025 , Expires: 06/13/2025 Start: 03-14-2025 End: 06-13-2025 Comprehensive metabolic 2000 panel - Serum or Plasma COMPREHENSIVE METABOLIC PANEL Lab Routine Stage 3a chronic kidney disease (HCC) Hyperlipidemia, unspecified hyperlipidemia type Expected: 03/14/2025, Expires: 06/13/2025 [facility] Comment on above: Expected: 03/14/2025 , Expires: 06/13/2025 Start: 03-14-2025 End: 06-13-2025 Hemoglobin A1c in Blood HEMOGLOBIN A1C Lab Routine Impaired fasting glucose Expected: 03/14/2025, Expires: 06/13/2025 [facility] Work Phone: Comment on above: Expected: 03/14/2025 , Expires: 06/13/2025 Start: 03-14-2025 End: 06-13-2025 Lipid 1996 panel - Serum or Plasma LIPID PANEL, FASTING Lab Routine Hyperlipidemia, unspecified hyperlipidemia type Expected: 03/14/2025, Expires: 06/13/2025 [facility] Comment on above: Expected: 03/14/2025 , Expires: 06/13/2025 Start: 02-27-[address] [facility] Start: 02-27-2025 Removal of urinary catheter [facility] Start: 02-27-[address] [facility] Start: 02-26-2025 DIABETES SCREEN DIABETES SCREEN [facility] Start: 02-26-[address]25 [address] intake and output [facility] Start: 02-26-2025 Removal of urinary catheter [facility] Start: 02-25-2025 Application of intermittent pneumatic compression device [facility] Start: 02-25-2025 Following clinical pathway protocol [facility] Start: 02-25-[address] and output [facility] Start: 02-25-2025 Admission procedure [facility] Start: 02-25-2025 Assessment of risk o f venous thromboembolism [facility] Start: 02-25-2025 Following clinical pathway protocol [facility] Start: 02-25-2025 End: 02-25-2025 Provision of activity privileges [facility] Start: 02-25-[address] [facility] Start: 02-25-[address] [facility] Start: 02-25-2025 End: 02-25-2025 [facility] Start: 01-31-2025 [facility] Start: 01-31-2025 Bacteria identified in Urine by Culture Urine Culture [facility] Start: 01-31-2025 [facility] Start: 11-17-2024 Advance Directive Discussion Advance Directive Discussion [facility] Start: 07-18-2024 Covid-19 Vaccine () Covid-19 Vaccine () [facility] Start: 07-18-2024 Influenza vaccination Influenza Vacc ine (#1) [facility] Start: 06-14-2024 End: 06-14-2024 Patient encounter procedure Cat Scan Comment on above: Annual LCS Start: 06-13-2024 End: 07-12-2024 CT LUNG SCREEN WO IVCON CT LUNG SCREEN WO IVCON Radiology Routine Encounter for screening for lung cancer Tobacco use current Expected: 06/13/2024, Expires: 07/12/2024 [facility] Work Phone: Comment on above: Expected: 06/13/2024 , Expires: 07/12/2024 Start: 06-09-2024 Influenza vaccination LUNG CANCER SC REENING [facility] Start: 06-09-2024 Screening for malign ant neoplasm of lung Lung Cancer Screening [facility] Start: 03-18-2024 End: 03-18-2024 Patient encounter procedure 03/18/2024 9:20 AM EDT Office Visit [facility] [address] [place] [address] Erwin Garcia MD [address] [place], [place] [address] Annual Medicare Wellness w/follow-up [facility] Comment on above: Annual Medicare Well ness w/follow-up Start: 03-15-2024 End: 06-14-2024 CBC panel - Blood by Automated count COMPLETE BLOOD COUNT Lab Routine Stage 3a chronic kidney disease (HCC) Expected: 03/15/2024, Expires: 06/14/2024 [facility] Work Phone: Comment on above: Expected: 03/15/2024 , Expires: 06/14/2024 Start: 03-15-2024 End: 06-14-2024 Comprehensive metabolic 2000 panel - Serum or Plasma COMPREHENSIVE METABOLIC PANEL Lab Routine Stage 3a chronic kidney disease (HCC) Hyperlipidemia, unspecified hyperlipidemia type Expected: 03/15/2024, Expires: 06/14/2024 [facility] Comment on above: Expected: 03/15/2024 , Expires: 06/14/2024 Start: 03-15-2024 End: 06-14-2024 Hemoglobin A1c in Blood HEMOGLOBIN A1C Lab Routine Impaired fasting glucose Expected: 03/15/2024, Expires: 06/14/2024 [facility] Comment on above: Expected: 03/15/2024 , Expires: 06/14/2024 Start: 03-15-2024 End: 06-14-2024 Lipid 1996 panel - Serum or Plasma LIPID PANEL BASIC Lab Routine Hyperlipidemia, unspecified hyperlipidemia type Expected: 03/15/2024, Expires: 06/14/2024 [facility] Comment on above: Expected: 03/15/2024 , Expires: 06/14/2024 Start: 03-13-2024 ANNUAL PCP TEAM SENIOR LABEL SPECIALIST FAITH DISEASE VISIT ANNUAL PCP TEAM CHRONIC DISEASE VISIT [facility] Start: 02-18-2024 Complete blood count Hemoglobin/Avelino tocrit [facility] Start: 02-18-2024 Creatinine measurement Serum Creatin ine [facility] Start: 02-18-2024 Hemoglobin A1c measurement Diabetes: Hemoglobin A1C [facility] Start: 02-18-2024 HEMOGLOBIN/HEMATOCRIT HEMOGLOBIN/HEM ATOCRIT [facility] Start: 02-18-2024 SERUM CREATININE SERUM CREATININE [facility] Start: 01-09-2024 Covid-19 Vaccine (7 ) Covid-19 Vaccine () [facility] Start: 01-01-2024 End: 01-01-2025 XR Knee - right 3 Views XR knee right 3 views Imaging STAT Injury of right knee, initial encounter Expected: 01/01/2024, Expires: 01/01/2025 [facility] Service Area Work Phone: Comment on above: Expected: 01/01/2024 , Expires: 01/01/2025 Start: 11-17-2023 Advance Directive Discussion Advance Directive Discussion [facility] Start: 11-17-2023 Behavioral Health Screening Behavioral Health Screening [facility] Start: 11-17-2023 Depression Assessment Depression Ass essment [facility] Start: 08-19-2023 Colonoscopy COLONOSCOPY [facility] Start: 08-19-2023 COLORECTAL CANCER SCREENING COLORECTAL CANCER SCREENING [facility] Start: 07-18-2023 Covid-19 Vaccine () Covid-19 Vaccine () [facility] Start: 07-18-2023 Influenza vaccination C [facility] Start: 03-08-2023 Adult depression screening assessment DEPRESSION SCREENING [facility] Start: 03-08-2023 ANNUAL PCP TEAM SENIOR LABEL SPECIALIST FAITH DISEASE VISIT ANNUAL PCP TEAM CHRONIC DISEASE VISIT [facility] Start: 02-26-2023 HEMOGLOBIN/HEMATOCRIT HEMOGLOBIN/HEM ATOCRIT [facility] Start: 02-26-2023 SERUM CREATININE SERUM CREATININE [facility] Start: 02-15-2023 End: 04-17-2023 CBC panel - Blood by Automated count CBC Lab Routine Stage 3a chronic kidney disease (HCC) Expected: 02/15/2023 (Approximate), Expires: 04/17/2023 [facility] Work Phone: Comment on above: Expected: 02/15/2023 (Approximate), Expires: 04/17/2023 Start: 02-15-2023 End: 04-17-2023 Comprehensive metabolic 2000 panel - Serum or Plasma COMP METABOLIC PANEL Lab Routine Hyperlipidemia, unspecified hyperlipidemia type Stage 3a chronic kidney disease (HCC) Expected: 02/15/2023 (Approximate), Expires: 04/17/2023 [facility] Work Phone: Comment on above: Expected: 02/15/2023 (Approximate), Expires: 04/17/2023 Start: 02-15-2023 End: 04-17-2023 Hemoglobin A1c in Blood HGB A1C Lab Routine Impaired fasting glucose Expected: 02/15/2023 (Approximate), Expires: 04/17/2023 [facility] Work Phone: Comment on above: Expected: 02/15/2023 (Approximate), Expires: 04/17/2023 Start: 02-15-2023 End: 04-17-2023 Lipid 1996 panel - Serum or Plasma LIPID PANEL BASIC Lab Routine Hyperlipidemia, unspecified hyperlipidemia type Expected: 02/15/2023 (Approximate), Expires: 04/17/2023 [facility] Work Phone: Comment on above: Expected: 02/15/2023 (Approximate), Expires: 04/17/2023 Start: 12-08-2022 COVID-19 VACCINE (6 - Moderna series) COVID-19 VACCINE (6 - Moderna series) [facility] Start: 11-17-2022 ADVANCE DIRECTIVE DISCUSSION ADVANCE DIRECTIVE DISCUSSION [facility] Start: 11-17-2022 DEPRESSION ASSESSMENT DEPRESSION ASS ESSMENT [facility] Start: 07-18-2022 Influenza vaccination INFLUENZA (#1) [facility] Start: 05-10-2022 COVID-19 VACCINE (5 - Booster for Moderna series) COVID-19 VACCINE (5 - Booster for Moderna series) [facility] Start: 04-04-2022 End: 04-18-2022 Influenza virus A and B RNA and SARS-CoV-2 (COVID-19) N gene panel - Respiratory specimen by KRYSTYNA with probe detection [facility] Work Phone: Comment on above: Expected: 04/04/2022 , Expires: 04/18/2022 Start: 2017 Abdominal aortic ane urysm screening Abdominal Aortic Aneurysm (AAA) Screening [facility] Start: 2012 RSV Vaccine (1 - 1-d ose 60+ series) RSV Vaccine (1 - 1-dose 60+ series) [facility] Start: 2002 Influenza vaccination LUNG CANCER SC REENING [facility] Start: 1997 COLOGUARD (FIT-DNA) COLOGUARD (FIT-D NA) [facility] Start: [address] COLONOGRAPHY [facility] Start: 1997 FECAL OCCULT BLOOD FECAL OCCULT BLOO D [facility] Start: 1997 Screening for malign ant neoplasm of colon [facility] Start: 1997 SIGMOIDOSCOPY SIGMOIDOSCOPY [facility] Start: 1970 Hepatitis C screening Hepatitis C Sc reening [facility] Start: 1952 Lipid panel Lipid Panel [facility] Start: 1952 Medicare Annual Well ness Visit Medicare Annual Wellness Visit (AWV) [facility] Start: 1952 Screening for malign ant neoplasm of colon [facility] Start: 1952 Yearly Adult Physical Yearly Adult P hysical [facility] End: 07-14-2025 CT Chest for screening WO contrast CT LUNG SCREEN WO IVCON Radiology Routine Encounter for screening for lung cancer Tobacco use current 1 Occurrences starting 06/14/2024 until 07/14/2025 [facility] Work Phone: Comment on above: 1 Occurrences starti ng 06/14/2024 until 07/14/2025 CT Chest for screeni ng WO contrast CT LUNG SCREEN WO IVCON Radiology Routine Encounter for screening for lung cancer Tobacco use current 06/14/2024 8:24 AM EDT [facility] Work Phone: End: 06-26-2024 CT LUNG SCREEN WO IVCON CT LUNG SCREEN WO IVCON Radiology Routine Encounter for screening for lung cancer Tobacco use current 1 Occurrences starting 05/28/2023 until 06/26/2024 [facility] Work Phone: Comment on above: 1 Occurrences starti ng 05/28/2023 until 06/26/2024 End: 04-23-2025 ECG 12 lead ECG 12 lead ECG STAT Once for 1 Occurrences starting 04/23/2025 until 04/23/2025 [facility] Service Area Work Phone: Comment on above: Once for 1 Occurrenc es starting 04/23/2025 until 04/23/2025 Patient Education Urinary Tract Infections in Men ED Gallstones with Biliary Colic [facility] Work Phone: Patient referral [facility] Work Phone: End: 03-13-2024 Screening colonoscopy COLONOSCOPY SCREENING Endoscopy Routine Special screening for malignant neoplasms, colon 1 Occurrences starting 03/13/2023 until 03/13/2024 [facility] Work Phone: Comment on above: 1 Occurrences starti ng 03/13/2023 until 03/13/2024 Urine culture [facility] End: 04-11-2024 US KIDNEY/BLADDER US KIDNEY/BLADDER Radiology Routine Stage 3a chronic kidney disease (HCC) 1 Occurrences starting 03/13/2023 until 04/11/2024 [facility] Work Phone: Comment on above: 1 Occurrences starti ng 03/13/2023 until 04/11/2024 [facility] Immunizations Immunization Date Immunization Notes Care Provider Fa [facility] 03-18-2024 COVID-19 vaccine, ag e 12+ yr, 2022- season ([employer]) Erwin Garcia MD Work Phone: [facility] 02-18-2024 respiratory syncytia l virus (RSV) vaccine, adjuvanted (AREXVY) Erwin Garcia MD Work Phone: [facility] 08-28-2023 Flu vaccine, quadrivalent, high-dose, preservative free, age 65y+ (FLUZONE) Trell Goldman OUTSEWER-TELETYPE OPERATOR Work Phone: [facility] Work Phone: 08-28-2023 influenza virus vacc ine, unspecified formulation Isael Lebron OUTSEWER.TELETYPE OPERATOR Work Phone: [facility] 08-23-2022 influenza, high dose seasonal, preservative-free Erwin Garcia MD Work Phone: [facility] 08-23-2022 influenza virus vacc ine, unspecified formulation Erwin Garcia MD Work Phone: [facility] 08-28-2021 influenza, high-dose , quadrivalent vaccine (FLUZONE HIGH DOSE QUADRIVALENT) Khadijah Older OUTSEWER.TELETYPE OPERATOR Work Phone: [facility] Work Phone: 08-10-2020 influenza, high dose seasonal, preservative-free Khadijah Older OUTSEWER.TELETYPE OPERATOR Work Phone: [facility] 11-24-2019 zoster vaccine recombinant Khadijah Older OUTSEWER.TELETYPE OPERATOR Work Phone: [facility] 09-23-2019 zoster vaccine recombinant Khadijah Older OUTSEWER.TELETYPE OPERATOR Work Phone: [facility] 08-04-2019 influenza, high dose seasonal, preservative-free Khadijah Older OUTSEWER.TELETYPE OPERATOR Work Phone: [facility] 08-04-2019 pneumococcal polysaccharide vaccine, 23 valent Khadijah Older OUTSEWER.TELETYPE OPERATOR Work Phone: [facility] 08-03-2018 influenza, high dose seasonal, preservative-free Khadijah Older OUTSEWER.TELETYPE OPERATOR Work Phone: [facility] Work Phone: 08-03-2018 pneumococcal conjuga te vaccine, 13 valent Khadijah Older OUTSEWER.TELETYPE OPERATOR Work Phone: [facility] Work Phone: 07-30-2017 influenza, injectabl e, quadrivalent, contains preservative Khadijah Older OUTSEWER.TELETYPE OPERATOR Work Phone: [facility] 04-04-2017 tetanus toxoid, redu reynaldo diphtheria toxoid, and acellular pertussis vaccine, adsorbed Khadijah Older OUTSEWER.TELETYPE OPERATOR Work Phone: [facility] Work Phone: 09-07-2016 influenza, injectabl e, quadrivalent, contains preservative Khadijah Older OUTSEWER.TELETYPE OPERATOR Work Phone: [facility] 09-07-2015 influenza, injectabl e, quadrivalent, contains preservative Khadijah Older OUTSEWER.TELETYPE OPERATOR Work Phone: [facility] 09-14-2013 pneumococcal polysaccharide vaccine, 23 valent Khadijah Older OUTSEWER.TELETYPE OPERATOR Work Phone: [facility] 08-31-2012 influenza virus vacc ine, unspecified formulation Khadijah Older OUTSEWER.TELETYPE OPERATOR Work Phone: [facility] 10-31-2009 novel influenza-H1N1 -09, preservative-free, injectable Erwin Garcia MD Work Phone: [facility] 03-17-2008 tetanus and diphther ia toxoids, adsorbed, preservative free, for adult use (2 Lf of tetanus toxoid and 2 Lf of diphtheria toxoid) Khadijah Older OUTSEWER.TELETYPE OPERATOR Work Phone: [facility] Work Phone: Payers Date Payer Category Payer Self-pay 2019 Private Health Insurance MMO MED ICARE SUPPLEMENT [id number] 2019 Unknown MMO MMO MEDICARE SUPPLEMENT [id number] 2019-Present [phone] [place], [place] [id number] Indemnity [id number] 2019 Unknown MMO MMO MEDICARE SUPPLEMENT [id number] 2019-Present [phone] [address] [place] [id number] Indemnity [id number] 2019 Unknown [id number] 2017 Medicare MEDICARE MEDICAR E A AND B [id number] 2017-Present [phone] [place] [address] Medicare [id number] 2017 Medicare [id number] 2017 Medicare [id number] 1950 Unknown [id number] 1950 Unknown [id number] Unknown [id number] 462 Unknown [id number] 462 Unknown [id number] 462 Unknown [id number] 462 Unknown [id number] 462 Unknown [id number] 462 Social History Date Type Detail Facility Start: 08-28-2021 End: 01-01-2024 Tobacco smoking status OHIS Smokes tobacco daily [facility] Work Phone: History of tobacco use [facility] Work Phone: History of tobacco use Pipe Smoker [facility] Work Phone: Start: 03-08-2022 End: 03-18-2025 Alcohol intake Current drinker of alcohol (finding) [facility] Start: 03-08-2022 End: 01-01-2024 Alcohol intake [facility] Work Phone: Start: 04-20-2008 History SDOH Alcohol Comment 1-2 beers daily [facility] Start: 1950 Sex Assigned At Not on file C [facility] Start: 03-25-2022 End: 01-01-2024 Exposure to SARS-CoV-2 (event) Not sure [facility] Work Phone: Start: 08-28-2021 End: 01-01-2024 Tobacco use and exposure Smokeless tobacco non-user [facility] Work Phone: Start: 03-13-2023 History SDOH Alcohol Frequency 5 [facility] Start: 03-13-2023 History SDOH Alcohol Std Drinks 1 [facility] Start: 03-13-2023 End: 01-01-2024 Alcohol Use Disorder Identification Test - Consumption [AUDIT-C] [facility] Work Phone: How often to you hav e a drink containing alcohol? 4 or more times a week [facility] Work Phone: How many standard dr inks containing alcohol do you have on a typical day? 1 or 2 [facility] Work Phone: How often do you hav e 6 or more drinks on 1 occasion? Never [facility] Work Phone: Adult Depression Scr eening Assessment 0 [facility] Work Phone: Start: 06-12-2015 Tobacco smoking stat us OHIS Unknown if ever smoked [facility] Start: 1950 Sex Assigned At Male [facility] Start: 06-14-2024 Tobacco Comment start age 16 [facility] Start: 01-31-2025 End: 02-26-2025 Tobacco smoking status NHIS Current Light tobacco smoker [facility] Start: 01-31-2025 End: 02-27-2025 Sex Male (finding) [facility] Goals Date Patient Goal Desired Activity /State Functional Status Date Assessment Result Facility 04-23-2025 Colby - suicide severity rating scale screener - recent [C-SSRS] [facility] Work Phone: 03-18-2025 Total score [AUDIT-C] 4 03/18/20 25 9:26 AM Erwin Herrera MD [facility] 02-27-2025 Functional status Bedrest [facility] Work Phone: 09-14-2014 Are you deaf, or do you have serious difficulty hearing No 09/14/2014 8:53 AM Rebeca Busch RN No [facility] 09-14-2014 Are you blind, or do you have serious difficulty seeing, even when wearing glasses No 09/14/2014 8:53 AM Rebeca Busch RN No [facility] 09-14-2014 Do you have serious difficulty walking or climbing stairs No 09/14/2014 8:53 AM Rebeca Busch RN No [facility] 09-14-2014 Do you have difficul ty dressing or bathing No 09/14/2014 8:53 AM Rebeca Busch RN No [facility] 09-14-2014 Because of a physica l, mental, or emotional condition, do you have difficulty doing errands alone such as visiting a physician's office or shopping No 09/14/2014 8:53 AM Rebeca Busch RN No [facility] Status Date Assessment Result Facility 02-27-2025 Cognitive function Voice/Name [facility] Work Phone: 09-14-2014 Because of a physica l, mental, or emotional condition, do you have serious difficulty concentrating, remembering, or making decisions No 09/14/2014 8:53 AM Rebeca Busch RN No [facility] Clinical Notes 10-04-2008 to 04-24-2025 Discharge InstructionsAttachmentsJustina [...] be sent through Care Everywhere.Gallstones Discharge Instructions (Gambian)documented in this encounter [facility] Work Phone: 04-23-2025 Physician Emergency department Note [...] performed using a different testing methodology at [facility] than at [facility]. Direct result comparisons should only be made [...] performed using a different testing methodology at [facility] than at other [facility]. Direct result comparisons should only be made [...] Abnormality Status --------- ------ Troponin I, High Sensiti...[[id number]] Normal Final result Troponin, High Sensitivi...[[id number]] Normal Final result Please view results for [...] Remy Ernst 04/24/2025 12:23 AM Dictation workstation: [id number] XR chest 1 view Final Result No [...] seen a surgeon regarding his gallbladder from [facility] in the past. I believe he should [...] 04/23/25 2220 Justina Kim MD 04/24/25 0040 [facility] Work Phone: 04-23-2025 Emergency department Note 74-year-old [...] performed using a different testing methodology at [facility] than at other [facility]. Direct result comparisons should only be made [...] performed using a different testing methodology at [facility] than at other [facility]. Direct result comparisons should only be made [...] Abnormality Status --------- ------ Troponin I, High Sensiti...[[id number]] Normal Final result Troponin, High Sensitivi...[[id number]] Normal Final result Please view results for [...] Remy Ernst 04/24/2025 12:23 AM Dictation workstation: [id number] XR chest 1 view Final Result No [...] seen a surgeon regarding his gallbladder from [facility] in the past. I believe he should [...] MD 04/24/25 0040 documented in this encounter [facility] Work Phone: 03-18-2025 Note HNO ID: [id number] Author: ERWIN GARCIA MD Service: ? Author Type: Physician Type: Progress Notes Filed: 03/18/2025 10:10 Note Text: This note was created using Zafgen. Subjective Hollie Cullen is a 74 year [...] kidney disease) stage 3, GFR 30-59 ml/min ([facility]) Impaired Fasting Glucose Obesity, Class I, Bmi [...] COLONOSCOPY WITH POLYPECTOMY 06/12/2023 LAPAROSCOPY, ENTEROLYSIS 01/25/2014 [facility] NEPHRECTOMY TOT URETERECANDBLDR CUFF SEPAR INCISN Right 02/25/2025 [facility] OPTX ANKLE DISLOCATION W/REPAIR/INT/XTRNL FIXJ Right 2012 [...] 128 Legend: (H) (more content not included)... [facility] 03-18-2025 History of Presen t illness Narrative [...] kidney disease) stage 3, GFR 30-59 ml/min ([facility]) Impaired Fasting Glucose Obesity, Class I, Bmi [...] COLONOSCOPY WITH POLYPECTOMY 06/12/2023 LAPAROSCOPY, ENTEROLYSIS 01/25/2014 [facility] NEPHRECTOMY TOT URETEREC&BLDR CUFF SEPAR INCISN Right 02/25/2025 [facility] OPTX ANKLE DISLOCATION W/REPAIR/INT/XTRNL FIXJ Right 2011 [...] is alert. Gait: Gait normal. Latest Ref [facility] 03/15/2025 Protein, Total 6.3 - 8.0 g/dL [...] Follow up with surgery as needed. Erwin Garcia MD Images from the original note were [...] General (Internal Medicine) Khadijah Raman APRN.YONIS as Publishing Editor (Internal Medicine) Isael Lebron APRN, CNP (Lung [...] ready to quit documented in this encounter [facility] 03-18-2025 Instructions Erwin Garcia MD - 03/18/2025 [...] review all the medicines you take, even jvsq-ivt-lxyluvt medicines. As you get older, the way [...] certain medical conditions. documented in this encounter [facility] 03-18-2025 Note HNO ID: [id number] Author: ERWIN GARCIA MD Service: ? Author [...] PCP - General (Internal Medicine) Khadijah Raman APRN.TELETYPE OPERATOR as Publishing Editor (Internal Medicine) Isael Lebron APRN, CNP (Lung [...] strategies. Patient is not ready to quit [facility] 03-14-2025 Telephone encounter Note notified fasting labs have been ordered. Manda Gr LPN [facility] 03-14-2025 Miscellaneous Notes notified fasting labs have been ordered. Manda Gr LPN Pt's calls to report that pt has an appt 5/2 and is asking if pt needs to get labs done before appt. reports they will be in town tomorrow and would like to get the labs done then since they live in [place]. Call when labs have been ordered. Patricia Mckinney LPN documented in this encounter [facility] 03-14-2025 Telephone encounter Note Pt's calls to report that pt has an appt 5/2 and is asking if pt needs to get labs done before appt. reports they will be in town tomorrow and would like to get the labs done then since they live in [place]. Call when labs have been ordered. Patricia Mckinney LPN [facility] 03-14-2025 Evaluation note Diagnosis Impaired fasting glucose Stage 3a chronic kidney disease (HCC) Hyperlipidemia, unspecified hyperlipidemia type documented in this encounter [facility]04-16-2025 Telephone encounter Note* Telephone Encounter - Grabill Huong Barker - 03/02/2025 9:22 AM EDT [...] by mouth daily at bedtime. [facility] March 02, 2025 9:23 AM [facility]04-16-2025 Miscellaneous Notes* Telephone Encounter - Grabill Huong Barker - 03/02/2025 9:22 AM EDT [...] by mouth daily at bedtime. [facility] March 02, 2025 9:23 AM [facility] Consult note [facility] Medical Records Department [address] [place] [address] Pre-Anesthesia Evaluation 02/25/25 0710 MR#: [id number] Acct: [id number] Name: HOLLIE CULLEN Rep #:[id number] : 1950 74 From: José Michael MD PCP: Dr. Erwin Garcia MD Status:R EG [facility] Y Race: C Location: [place] [address] ASA Classification* ASA Classification ASA Classification: 2 [...] Nephrectomy, Ureterectomy Anesthesia History Anesthesia History - riveter automobile brakes: Anesthesia History - riveter automobile brakes Hx Hospitalization No 02/11/25 13:33 Any Problems [...] take am of surgery PONV PONV - riveter automobile brakes: PONV - riveter automobile brakes Female No 02/11/25 13:33 HX of Motion [...] 02/25/25 06:26 Respiratory Assessment Respiratory Assessment - riveter automobile brakes: Respiratory Tract Infection Hx - riveter automobile brakes Hx Respiratory Tract Infection No 02/11/25 13:33 STOP Sleep Apnea STOP Sleep Apnea - riveter automobile brakes: STOP Sleep Apnea - riveter automobile brakes Hx Hypertension No 02/11/25 13:33 Hx Sleep [...] Tobacco Use History Tobacco Use History - riveter automobile brakes: Tobacco Use History - riveter automobile brakes Tobacco Use Smoking Status Light Smoker (<10/day) 02/11/25 13:33 Hx Tobacco Use Yes 02/11/25 13:33 Years Smoking 50 02/11/25 13:33 Packs Smoked per Day 1 02/11/25 13:33 Smoking Cessation Date was within the last 15 years Hx Smoking Cessation Date Hx Smoking Cessation Counseling Hematologic Medial History Hematologic Hx - riveter automobile brakes: Hematologic 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04-13-2025 Consult note [facility] Medical Records Department [address] [place] [address] Anesthesia Postop Eval II 02/25/25 1111 MR#: [id number] Acct: [id number] Name: GIOHOLLIE Rep #:[id number] : 1950 74 From: José Michael MD PCP: Dr. Erwin Garcia MD Status:A DM MARYCHUY Y Race: C Location: [address] Anesthesia Postop Eval I Sum Postop Eval Completion status Anesthesia document: Postop Eval 1 completed: Yes Anesthesia Postop Eval I Summary Anesthesia Postop Eval I Summary: Anesthesia Postop Eval I: Assessment Summary Airway patent Yes 02/25/25 10:06 PERIOPERATIVE EDUCATOR.[email or web address] Spontaneous unlabored Yes 02/25/25 10:06 PERIOPERATIVE EDUCATOR.PKEL respirations Mental status Awake,Calm 02/25/25 10:06 PERIOPERATIVE EDUCATOR.PKEL nausea No 02/25/25 10:06 PERIOPERATIVE EDUCATOR.PKEL Vomiting No 02/25/25 10:06 PERIOPERATIVE EDUCATOR.PKEL Anesthesia Postop Eval I: Fluid Summary Crystalloid volume administer 1,600 02/25/25 10:06 PERIOPERATIVE EDUCATOR.PKEL (ml) Colloids volume administered ( ml) Blood Product volume administered (ml) Total IV fluid infused 1,600 02/25/25 10:06 PERIOPERATIVE EDUCATOR.PKEL Anesthesia Postop Eval I: Summary Notes Anesthesia Complication No 02/25/25 10:06 PERIOPERATIVE EDUCATOR.PKEL Anesthesia Complication Comment: Post-operative progress note Anesthesia: Postop Eval II Evaluation Mental status: Awake Pain Level: 0 nausea: No Vomiting: No 02/25/25 1111 > Date _ José Haney Signature: Date CC: ~ Signed [facility]04-13-2025 Discharge summary [facility] Medical Records Department [address] [place] [address] Instructions for Home/Discharge Instructions 02/25/25 0944 MR#: [id number] Acct: [id number] Name: HOLLIE CULLEN Rep #:[id number] : 1950 74 From: Los Romero MD PCP: Dr. Erwin Garcia MD Status:R [facility] Discharge Instructions Diet Discharge Diet: No restrictions DC O2, CPAP, BIPAP needs Home O2 Discharge instructions: No Dressing / Incision Discharge Activity: Return to Normal Activity and May Not Drive (while taking narcotic pain medications.) Dressing / Incision Call your doctor if you observe: Fever of 101 or Higher Follow Up Care Please Follow Up With: Los Romero MD When: Call [phone] for an appointment Test Results: Test results from this visit will be discussed in further detail at your follow- up appointment, if applicable. Discharge Plan Admission Primary Reason for Your Visit: Right nephro ureterectomy Attending Provider: Los Romero Primary Care Provider: Erwin Garcia Instructions Print Language: Gambian Discharge Orders/Prescriptions Prescriptions: New oxycodone 5 mg [...] CC: Dr. Erwin Garcia MD ~ Signed [facility]04-13-2025 History and physical note [facility] Medical Records Department [address] [place] [address] History & Physical Exam 02/25/25 0944 MR#: [id number] Acct: [id number] Name: HOLLIE CULLEN Rep #:[id number] : 1950 74 From: Los Romero MD PCP: Dr. Erwin Garcia MD Status:R [facility] Location: [place] [address] HPI - General General Date of Service: 02/25/25 Chief Complaint: Right nonfunctioning kidney HPI Narrative HOLLIE CULLEN, is a 74 M who presents removal of a large right nonfunctioning kidney that is giving him pain and problems recently with a hospital with an infection. [facility] Medical History Wears glasses Wears dentures Wears [...] Romero MD; Dr. Erwin Garcia MD~ Signed [facility]04-13-2025 Progress note [facility] Medical Records Department [address] [place] [address] Progress Note - Urology 02/26/25902 MR#: [id number] Acct: [id number] Name: GIOHOLLIE Rep #:[id number] : 1950 74 From: Los Romero MD PCP: Dr. Erwin Garcia MD Status:A DM MARYCHUY Location: MS3 UL389-6 Subjective Subjective s/p right nephro U doing [...] 76.9 H, Lymph % (Auto) 11.0 L, [place] % (Auto) 11.4 H, Eos % (Auto) [...] Cosigner Signature (if applicable): CC: ~ Signed [facility]04-13-2025 Progress note Author Los Romero [facility] Note Date/Time February 27, 2025 9:[address] [facility] Medical Records Department [address] [facility] [place] [address] Progress Note - Urology 02/27/25950 MR#: [id number] Acct: [id number] Name: GIOHOLLIE Rep #:[id number] : 1950 74 From: Los Romero MD PCP: Dr. Erwin Garcia MD Status:A DM MARYCHUY Location: CA3 [id number] Subjective Subjective s/p right nephro U anyi [...] % (Auto) 65.4, Lymph % (Auto) 19.8, [place] % (Auto) 12.2 H, Eos % (Auto) [...] Cosigner Signature (if applicable): CC: ~ Signed [facility] Work Phone: 1(624) 216-122604-13-2025 Progress note [facility] Medical Records Department [address] [place] [address] Progress Note - Urology 02/27/25 0951 MR#: [id number] Acct: [id number] Name: GIOHOLLIE Rep #:[id number] : 1950 74 From: Los Romero MD PCP: Dr. Erwin Garcia MD Status:A DM MARYCHUY Location: MS3 UK632-2 Subjective Subjective s/p right nephro U anyi [...] Neut% (Auto) 65.4, Lymph % (Auto) 19.8, [place] % (Auto) 12.2 H, Eos % (Auto) [...] Cosigner Signature (if applicable): CC: ~ Signed [facility]04-12-2025 Progress note Author Los Romero [facility] Note Date/Time February 27, 2025 2:[address] [facility] Medical Records Department [address] [place] [address] Progress Note - Urology 02/26/25902 MR#: [id number] Acct: [id number] Name: GIOHOLLIE Rep #:[id number] : 1950 74 From: Los Romero MD PCP: Dr. Erwin Garcia MD Status:A DM MARYCHUY Location: CA3 UG086-8 Subjective Subjective s/p right nephro U doing [...] 76.9 H, Lymph % (Auto) 11.0 L, [place] % (Auto) 11.4 H, Eos % (Auto) [...] Cosigner Signature (if applicable): CC: ~ Signed [facility] Work Phone: 1(454) 751-338904-11-2025 Consult note Author José Michael [facility] Note Date/Time February 27, 2025 2:4 [address] [facility] Medical Records Department [address] [place] [address] Anesthesia Postop Eval II 02/25/25 1111 MR#: [id number] Acct: [id number] Name: HOLLIE CULLEN Rep #:[id number] : 1950 74 From: José Michael MD PCP: Dr. Erwin Garcia MD Status:A DM MARYCHUY Y Race: C Location: [place] [address] Anesthesia Postop Eval I Sum Postop Eval Completion status Anesthesia document: Postop Eval 1 completed: Yes Anesthesia Postop Eval I Summary Anesthesia Postop Eval I Summary: Anesthesia Postop Eval I: Assessment Summary Airway patent Yes 02/25/25 10:06 PERIOPERATIVE EDUCATOR.[email or web address] Spontaneous unlabored Yes 02/25/25 10:06 PERIOPERATIVE EDUCATOR.PKEL respirations Mental status Awake,Calm 02/25/25 10:06 PERIOPERATIVE EDUCATOR.PKEL nausea No 02/25/25 10:06 PERIOPERATIVE EDUCATOR.PKEL Vomiting No 02/25/25 10:06 PERIOPERATIVE EDUCATOR.PKEL Anesthesia Postop Eval I: Fluid Summary Crystalloid volume administer 1,600 02/25/25 10:06 PERIOPERATIVE EDUCATOR.PKEL (ml) Colloids volume administered ( ml) Blood Product volume administered (ml) Total IV fluid infused 1,600 02/25/25 10:06 MARÍA Anesthesia Postop Eval I: Summary Notes Anesthesia Complication No 02/25/25 10:06 PERIOPERATIVE EDUCATORNIKKI Anesthesia Complication Comment: Post-operative progress note Anesthesia: Postop Eval II Evaluation Mental status: Awake Pain Level: 0 nausea: No Vomiting: No 02/25/25 1111 <Electronically signed by José Michael MD > Date _ José Michael MD Cosigner Signature: Date CC: ~ Signed [facility] Work Phone: 1(485) 719-741904-11-2025 Consult note Author Riley Grewal [facility] Note Date/Time February 25, 2025 10: 06am [facility] Medical Records Department [address] [place] [address] Anesthesia Postop Eval I 02/25/25 1005 MR#: [id number] Acct: [id number] Name: HOLLIE CULLEN Rep #:[id number] : 1950 74 From: Riley Grewal CRNA PCP: Dr. Erwin Garcia MD Status:A DM MARYCHUY Y Race: C Location: [place] [address] Anesthesia: Postop Eval I Current Vital Signs [...] Riley Weemsignsean Signature: Date CC: ~ Signed [facility] Work Phone: 1(406) 849-874904-11-2025 Discharge summary Author Los Romero [facility] Note Date/Time February 27, 2025 2:[address] [facility] Medical Records Department [address] [place] [address] Instructions for Home/Discharge Instructions 02/25/25 0944 MR#: [id number] Acct: [id number] Name: HOLLIE CULLEN Rep #:[id number] : 1950 74 From: Los Romero MD PCP: Dr. Erwin Garcia MD Status:R [facility] Discharge Instructions Diet Discharge Diet: No restrictions DC O2, CPAP, BIPAP needs Home O2 Discharge instructions: No Dressing / Incision Discharge Activity: Return to Normal Activity and May Not Drive (while taking narcotic pain medications.) Dressing / Incision Call your doctor if you observe: Fever of 101 or Higher Follow Up Care Please Follow Up With: Los Romero MD When: Call [phone] for an appointment Test Results: Test results from this visit will be discussed in further detail at your follow- up appointment, if applicable. Discharge Plan Admission Primary Reason for Your Visit: Right nephro ureterectomy Attending Provider: Los Romero Primary Care Provider: Erwin Garcia Instructions Print Language: Gambian Discharge Orders/Prescriptions Prescriptions: New oxycodone 5 mg [...] CC: Dr. Erwin Garcia MD ~ Signed [facility] Work Phone: 1(835) 686-992604-11-2025 History and physical note Author Los Nick [facility] Note Date/Time February 27, 2025 2:4 6pm [facility] Medical Records Department [address] [place] [address] History & Physical Exam 02/25/25 0944 MR#: [id number] Acct: [id number] Name: HOLLIE CULLEN Rep #:[id number] : 1950 74 From: Los Romero MD PCP: Dr. Erwin Garcia MD Status:[place] [facility] Location: [place] [address] HPI - General General Date of Service: 02/25/25 Chief Complaint: Right nonfunctioning kidney HPI Narrative HOLLIE CULLEN, is a 74 M who presents removal of a large right nonfunctioning kidney that is giving him pain and problems recently with a hospital with an infection. [facility] Medical History Wears glasses Wears dentures Wears [...] (BMI) 33.0 02/25/25 0944 <Electronically signed by oLs Romero MD> Cosigner Signature (if applicable): CC: Dr. Los Romero MD; Dr. Erwin Garcia MD~ Signed [facility] Work Phone: 1(282) 567-697004-11-2025 Consult note [facility] Medical Records Department [address] [place] [address] Anesthesia Postop Eval I 02/25/25 1005 MR#: [id number] Acct: [id number] Name: GIOHOLLIE Rep #:[id number] : 1950 74 From: Riley Grewal CRNA PCP: Dr. Erwin Garcia MD Status:A DM MARYCHUY Y Race: C Location: [facility] Anesthesia: Postop Eval I Current Vital Signs [...] Eval 1 completed: Yes 02/25/25 1006 y PERIOPERATIVE EDUCATOR> Date _ Riley Carmina PERIOPERATIVE EDUCATOR Cosigner Signature: Date CC: ~ Signed [facility]04-11-2025 Procedure note [facility] Medical Records Department [address] [place] [address] Operative Report 02/25/25 0944 MR#: [id number] Acct: [id number] Name: HOLLIE CULLEN Rep #:[id number] : 1950 74 From: Los Romero MD PCP: Dr. Erwin Garcia MD [facility] [facility] Location: [place] [address] Operative Report (Standard) Operative Information Date of Procedure: 02/25/25 Pre-Operative Diagnosis: Right nonfunctioning kidney hydroureteronephrosis Post-Operative Diagnosis: The same Surgery/Procedure Performed: Laparoscopic robotic assisted right nephro ureterectomy dot compliance coordinator: No Type of Anesthesia: General RN Documented [...] a air seal port suction for the podiatric assistant I then docked the robot we [...] Romero MD; Dr. Erwin Garcia MD~ Signed [facility]04-11-2025 [facility] Medical Records Department [address] [place] [address] History Physical Exam 02/25/25 0944 MR#: [id number] Acct: [id number] Name: HOLLIE CULLEN Rep #: [id number] : 1950 74 From: Los Romero MD PCP: Dr. Erwin Garcia MD Status:[facility] Location: [place] [address] HPI - General General Date of Service: 02/25/25 Chief Complaint: Right nonfunctioning kidney HPI Narrative HOLLIE CULLEN, is a 74 M who presents removal of a large right nonfunctioning kidney that is giving him pain and problems recently with a hospital with an infection. [facility] Medical History Wears glasses Wears dentures Wears [...] Los Romero MD; Dr. Erwin Garcia MD [facility]04-11-2025 Consult note Author José Michael [facility] Note Date/Time February 27, 2025 2:[address] [facility] Medical Records Department [address] [place] [address] Pre-Anesthesia Evaluation 02/25/25 0710 MR#: [id number] Acct: [id number] Name: HOLLIE CULLEN Rep #:[id number] : 1950 74 From: José Michael MD PCP: Dr. Erwin Garcia MD Status:R EG [facility] Y Race: C Location: [place] [address] ASA Classification* ASA Classification ASA Classification: 2 [...] Nephrectomy, Ureterectomy Anesthesia History Anesthesia History - riveter automobile brakes: Anesthesia History - riveter automobile brakes Hx Hospitalization No 02/11/25 13:33 Any Problems [...] take am of surgery PONV PONV - riveter automobile brakes: PONV - riveter automobile brakes Female No 02/11/25 13:33 HX of Motion [...] 02/25/25 06:26 Respiratory Assessment Respiratory Assessment - riveter automobile brakes: Respiratory Tract Infection Hx - riveter automobile brakes Hx Respiratory Tract Infection No 02/11/25 13:33 STOP Sleep Apnea STOP Sleep Apnea - riveter automobile brakes: STOP Sleep Apnea - riveter automobile brakes Hx Hypertension No 02/11/25 13:33 Hx Sleep [...] Tobacco Use History Tobacco Use History - riveter automobile brakes: Tobacco Use History - riveter automobile brakes Tobacco Use Smoking Status Light Smoker (<10/day) 02/11/25 13:33 Hx Tobacco Use Yes 02/11/25 13:33 Years Smoking 50 02/11/25 13:33 Packs Smoked per Day 1 02/11/25 13:33 Smoking Cessation Date was within the last 15 years Hx Smoking Cessation Date Hx Smoking Cessation Counseling Hematologic Medial History Hematologic Hx - riveter automobile brakes: Hematologic 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 Work Phone: 1(190) 448-739303-24-2025 Evaluation note* Diagnosis Onset Date Resolution Status Admit Date Bloating symptom acute February 072024 9:25am Gallstones acute February 07 9:25am Kidney atrophy acute January 9:25am Bloating symptom acute February 142024 1:33pm Gallstones acute February 14 1:33pm Kidney atrophy acute January 1:33pm [facility] Work Phone: 1(580) 664-481003-17-2025 Discharge summary [facility] Medical Records Department [address] [place] [address] Emergency Department Summary 01/31/25 MR#: [id number] Acct: [id number] Name: HOLLIE CULELN Rep #:[id number] : 1950 74 From: Rashi Shaikh PCP: [...] Present Illness Chief Complaint: Abd Pain PFSH [facility] Medical History (Updated 01/31/25 @ 11:07 by [...] History obtained from others: none Consults: none [facility] Narrative: The patient was initially hypertensive with [...] surgery recommendations This note was generated with CloudSync dictation software. It may contain incorrectwords, spelling, [...] 70.8 H Lymph % (Auto) 16.0 L [place] % (Auto) 10.8 H Eos % (Auto) [...] Clarity Cloudy Urine pH 6.0 Ur Specific [place] 1.015 Urine Protein 15 H Urine Glucose [...] side. Diffuse bladder wall thickening. Reading Location: [facility] Abdomen Ultrasound 01/31/25 13:15 IMPRESSION: Sludge and gallstones seen within the gallbladder lumen with evidence of gallbladder wall thickening and pericholecystic fluid. Acute cholecystitis should be ruled out. Abnormal appearance of the right kidney as described. Fatty infiltration of the liver. Hepatomegaly. Reading Location: [facility] Discharge Plan Triage Chief Complaint: Abd Pain [...] MD [Primary Care Provider] - Print Language: Gambian What to do if you have Problems For any increased pain, shortness of breath, bleeding, nausea or vomiting, chestpain, or any unexpected problems, contact your Primary Care Provider. Call [facility] ([phone]) or report tothe closest Emergency Room. Call 911 if necessary. 01/31/25 1621 Cosigner Signature (if applicable): CC: Dr. Erwin Garcia MD ~ Signed [facility]03-17-2025 Consult note [facility] Medical Records Department [address] [place] [address] Consultation - Surgical 01/31/25 1647 MR#: [id number] Acct: [id number] Name: HOLLIE CULLEN Rep #:[id number] : 1950 74 From: Elana Richmond MD [...] Deferred to urology. Elana Richmond M.D. Pager: [phone] [facility] [address] [place] [address], Outpatient Pavilion, [address] [place] [address] Office: [phone] HPI Consult Data Date of Consult: 01/31/25 [...] there was nothing to do atthat time. [facility] Medical History (Updated 01/31/25 @ 17:16 by [...] 70.8 H, Lymph % (Auto) 16.0 L, [place] % (Auto) 10.8 H, Eos % (Auto) [...] Clarity Cloudy, Urine pH 6.0, Ur Specific [place] 1.015, Urine Protein 15 H, Urine Glucose [...] side. Diffuse bladder wall thickening. [facility] Abdomen Ultrasound 01/31/25 13:15 IMPRESSION: Sludge and gallstones seen within the gallbladder lumen with evidence of gallbladder wall thickening and pericholecystic fluid. Acute cholecystitis should be ruled out. Abnormal appearance of the right kidney as described. Fatty infiltration of the liver. Hepatomegaly. Reading Location: [facility] Charges/Coding Multi Select Codes Visit Charges Office Visit/Consults: 01294 OP Consult L4 01/31/25 1717 Cosigner Signature (if applicable): CC: Dr. Erwin Garcia MD~ Signed [facility]03-17-2025 Radiology Diagnostic study note [facility] Imaging Services [address] [place], [place] [address] Abdomen Limited MR#: [id number] Acct: [id number] Name: HOLLIE CULLEN Rep #: [id number] : 1950 M 74 From: Ever Logan MD PCP: Dr. Erwin Garcia MD Status: R EG ER Study:Abdomen Limited Date of Exam: 01/15 06/10 Exam# [id number] Ordering Dr: Miah Lee DO PROCEDURE: ABDOMEN [...] infiltration of the liver. Hepatomegaly. Reading Location: [facility] CC: Dr. Rashi Lee DO; Dr. Erwin Garcia MD ~ Side Panel Hanger: Signed [facility]03-17-2025 Discharge summary Author Rashi Lee [facility] Note Date/Time January 31, 2025 5:5 2pm [facility] Medical Records Department [address] [place] [address] Emergency Department Summary 01/31/25 MR#: [id number] Acct: [id number] Name: HOLLIE CULLEN Rep #:[id number] : 1950 74 From: Rashi Shaikh PCP: [...] of Present Illness Chief Complaint: Abd Pain [facility] Medical History (Updated 01/31/25 @ 11:07 [...] surgery recommendations This note was generated with CloudSync dictation software. It may contain incorrectwords, spelling, [...] 70.8 H Lymph % (Auto) 16.0 L [place] % (Auto) 10.8 H Eos % (Auto) [...] Clarity Cloudy Urine pH 6.0 Ur Specific [place] 1.015 Urine Protein 15 H Urine Glucose [...] side. Diffuse bladder wall thickening. Reading Location: [facility] Abdomen Ultrasound 01/31/25 13:15 IMPRESSION: Sludge and gallstones seen within the gallbladder lumen with evidence of gallbladder wall thickening and pericholecystic fluid. Acute cholecystitis should be ruled out. Abnormal appearance of the right kidney as described. Fatty infiltration of the liver. Hepatomegaly. Reading Location: [facility] Discharge Plan Triage Chief Complaint: Abd Pain ED Provider: Rashi Lee Dx/Rx/DC Orders Prescriptions: No Action multivitamin with folic acid [Thera] 1 TABLET tablet 1 tab PO DAILY simvastatin 40 mg tablet 40 mg PO QHS montelukast 10 mg tablet 10 mg PO QHS dutasteride 0.5 mg capsule 0.5 mg PO DAILY Primary Care Provider: Erwin Garcia Referrals: Erwin aGrcia MD [Primary Care Provider] - Print Language: Gambian What to do if you have Problems For any increased pain, shortness of breath, bleeding, nausea or vomiting, chestpain, or any unexpected problems, contact your Primary Care Provider. Call [email or web address] [facility] ([phone]) or report to the closest Emergency Room. Call 911 if necessary. 01/31/25 1621 <Electronically signed by Rashi Lee DO> Cosigner Signature (if applicable): CC: Dr. Erwin Garcia MD ~ Signed [facility] Work Phone: 1(256) 142-574203-17-2025 Radiology Diagnostic study note [facility] Imaging Services [address] [place] [address] Abdomen/Pelvis WITH Contrast MR#: [id number] Acct: [id number] Name: HOLLEI CULLEN Rep #: [id number] : 1950 M 74 From: Ever Logan MD PCP: Dr. Erwin Garcia MD Status: R EG ER Study:Abdomen/Pelvis WITH Contrast Date of Ex am: 01/31/25 Exam# [id number] Ordering Dr: Miah Lee DO PROCEDURE: ABDOMEN/PELVIS [...] side. Diffuse bladder wall thickening. Reading Location: [facility] CC: Dr. Rashi Lee DO; Dr. Erwin Garcia MD ~ Side Panel Hanger: Signed [facility]03-17-2025 Telephone encounter Note* Telephone Encounter - Wendy [...] or constipation. Protocols used: Abdominal Pain - [id number] [facility]03-17-2025 Miscellaneous Notes* Telephone Encounter - Wendy Espinal [...] or constipation. Protocols used: Abdominal Pain - [id number]-[id number]-QC documented in this encounterHolzer Medical Center [facility] [place]12-09-2024 Telephone encounter Note * Telephone Encounter - Leann Ibarra LPN - 10/25/2024 10:46 AM EST Pt has filled this last refill from the rx. New one would be needed for Dec 2024. [facility]12-09-2024 Miscellaneous Notes* Telephone Encounter - Leann Ibarra [...] 25, 2024 8:35 AM documented in this encounterHolzer [facility] Center [facility] [place]12-09-2024 Telephone encounter Note * Telephone Encounter - [...] capsule by mouth once daily. Diane Lebron [facility] October 25, 2024 8:35 AM [facility]08-22-2024 Telephone encounter Note* Telephone Encounter - Lena [...] Lena Barker July 08, 2024 9:29 AM [facility]08-22-2024 Miscellaneous Notes* Telephone Encounter - Lena Zuñiga [...] 08, 2024 9:29 AM documented in this encounterHolzer Medical Center [facility] [place]08-12-2024 Telephone encounter Note * Telephone Encounter - Beatrice Parker RN - 06/28/2024 8:58 AM EDT Patient's calls and notified of below. voices understanding. Beatrice Parker RN [facility]08-12-2024 Miscellaneous Notes* Telephone Encounter - Beatrice Parker [...] and states they received a letter from [facility] stating that according to resultsof pt's recent Lung CT result, it is advised for them to speak with pt's PCP regarding patient's coronary artery calcifications. Please advise if further testing is warranted or any other recommendations. Trang Seals RN documented in this encounterHolzer Medical Center – [place]08-09-2024 Telephone encounter Note * Telephone Encounter - Grace Avery LPN - 06/25/2024 12:53 PM EDT Phoned patient left message to return call and ask to speak to a nurse. [facility]08-09-2024 Telephone encounter Note* Telephone Encounter - Erwin Garcia MD - 06/25/2024 12:06 PM EDT That is a standard letter. His report did not show coronary artery calcifications. Still to avoid hardening of coronary arteries, it's never too late to stop smoking. [facility]08-08-2024 Telephone encounter Note* Telephone Encounter - Trang Seals RN - 06/24/2024 11:00 AM EDT Patient's calling and states they received a letter from [facility] stating that according to resultsof pt's recent Lung CT result, it is advised for them to speak with pt's PCP regarding patient's coronary artery calcifications. Please advise if further testing is warranted or any other recommendations. Trang Seals RN [facility]07-29-2024 Instructions* Patient Instructions* Isael Lebron APRN.CNP - [...] final radiology report recommendations when available by Zazoo message, letter, or phone call. We will also notify your referring provider/PCP of the results and recommendations. If you didn t schedule this before you left the office or need to reschedule, you can call in to schedule it anytime: [facility] [phone] [facility] [phone] All other [facility] locations [phone] Feel free to reach out for any questions or concerns, Isael Lebron APRN.CNP Lung Cancer Screening [phone] documented in this encounterHolzer Medical Center – [place]07-29-2024 NoteHNO ID: [id number] Author: ISAEL LEBRON APRN.CNP Service: ? Author [...] which included preparing to see the patient, vofp-fb-qdnb patient care, completing clinical documentation, performing a medically appropriate examination, counseling and educating the patient/family/caregiver, ordering medications, tests, or procedures, communicating with other HCPs (not separately reported), independently interpreting results (not separately reported), communicating results to the patient/family/caregiver, and care coordination (not separately reported). Isael Lebron APRN.[facility] June 14, 2024 8:48 AM History [...] maintenance inhaler for COPD. Modified Medical Research [place] Dyspnea Scale (MMRC) I only get breathless [...] 08/04/2018 103.4 kg (2 (more content not included)...[facility] 06-14-2024 History of Present illness Narrative* Ballwin Isael, APRN.TELETYPE OPERATOR - 06/14/2024 8:48 AM EDT Images from [...] which included preparing to see the patient, rmqg-kb-rzws patient care, completing clinical documentation, performing a medically appropriate examination, counseling and educating the patient/family/caregiver, ordering medications, tests, or p rocedures, communicating with other HCPs (not separately reported), independently interpreting results (not separately reported), communicating results to the patient/family/caregiver, and care coordination (not separately reported). Isael Lebron APRN.[facility] June 14, 2024 8:48 AM History [...] maintenance inhaler for COPD. Modified Medical Research [place] Dyspnea Scale (MMRC) I only get breathless [...] Colonoscopy COLONOSCOPY SCREENING 06/12/2023 LAPAROSCOPY, ENTEROLYSIS 01/25/2014 [facility] OPTX ANKLE DISLOCATION W/REPAIR/INT/XTRNL FIXJ Right 2012 [...] DATE OF EXAM: Jun 09 2023 2:19PM [facility] 0[facility] - CT LUNG SCREEN WO [facility] / PROCEDURE REASON: multiple diagnoses * [...] without contrast. MQ: CTLCS_6 Patient characteristics: * Lufa-qs-Qoomn: 1950; Age at exam: 72 years * Gender: Male * Lung Disease: Asymptomatic (no signs or symptoms of lung disease) * Number of Pack Years: 28.5 * Current smoker (=0) or Number of Years since Quit: 0 * Ordering provider and NPI: ISAEL LEBRON [id number] * Interpreting radiologist and NPI: Mane [id number] Exam acquisition parameters: * Exam Date: 06/09/2023 2:19 PM * Site: [facility] * * CT System Deep Tissue Massage Therapist: Siemens * CT System Model: Sensation * [...] Left Anterior Descending None; Right Coronary None Superintendent Storage Area (topogram) images: No additional findings. Last CT Chest - Impression Only No resulted procedures found. Last XR Chest - Impression Only XR CHEST 2V FRONTAL/LAT Collected: 07/30/2017 10:25 AM (Final result) Impression: IMPRESSION: No acute radiographic abnormality. Side Panel Hanger: ASHLEY Transcribe Date/Time: Jul 31 2017 3:59P ... Pulmonary Function Testing: No textual results found for the specified procedure(s). documented in this encounterHolzer Medical Center [facility] [place]07-29-2024 History of Present illness Narrative* Abby Dietz [...] PATIENT PRESENTS WITH AN IMPLANTABLE OR ATTACHED MANAGER LINE: No RADIOLOGY DEPARTMENT: CT; Exam(s) Completed: Lung Screening PERIPHERAL IV DATA: Not applicable SIGNED BY: RT Connie(Caridad) June 14, 2024 3:37 PM documented in this encounterHolzer Medical Center [facility] [place]07-29-2024 NoteHNO ID: [id number] Author: ABBY DIETZ RT(Caridad) Service: ? Author Type: Rework Machine Operator Type: Progress Notes Filed: 06/14/2024 15:37 Note [...] PATIENT PRESENTS WITH AN IMPLANTABLE OR ATTACHED MANAGER LINE: No RADIOLOGY DEPARTMENT: CT; Exam(s) Completed: Lung Screening PERIPHERAL IV DATA: Not applicable SIGNED BY: RT Connie(R) June 14, 2024 3:37 [facility]05-02-2024 History of Present illness Narrative* Erwin Garcia MD - 03/18/2024 10:07 AM EDT This note was created using Zafgen. Subjective Hollie Cullen is a 73 year [...] kidney disease) stage 3, GFR 30-59 ml/min ([facility]) Impaired Fasting Glucose Obesity, Class I, Bmi [...] vaccine - ICD9: V04.89, ICD10: Z23 - [employer] COVID-19 VACCINE ( [place]) AGE 12+ YR [...] screening Row Labels Depression Screening PHQ-2 Score GABION-2 Total Score 03/18/2024 0 0 Depression screening [...] - Vaccine: Covid booster. documented in this encounterHolzer Medical Center [facility] [place]04-29-2024 Telephone encounter Note * Telephone Encounter - Manda Gr LPN - 03/15/2024 4:09 PM EDT Patient notified fasting labs have been ordered. Manda Gr LPN [facility]04-29-2024 Miscellaneous Notes* Telephone Encounter - Manda Gr [...] them know once ordered. documented in this encounterHolzer Medical Center – [place]04-29-2024 Telephone encounter Note * Telephone Encounter - Marylu Layton RN - 03/15/2024 8:13 AM EDT Pts called in asking for provider to put in lab work for Pt to get before Medicare Wellness on03/18/24. Please call 's cell phone to let them know once ordered. [facility]02-27-2024 Miscellaneous Notes* Telephone Encounter - Elisha Velásquez APRN.CNS - 01/13/2024 12:29 PM EST [...] advise, Beatrice Parker RN documented in this encounterHolzer Medical Center – [place]02-27-2024 Instructions* Patient Instructions* Elisha Velásquez APRN.CNS - 01/13/2024 10:57 AM EST Continue to avoid painful activities, rest ice and elevate your knee. Continue with Tylenol as needed for pain. Try hydrocodone acetaminophen at bedtime if the pain is keeping you awake. Colace if any constipation while taking the pain medication. documented in this encounterHolzer Medical Center – [place]02-27-2024 History of Present illness Narrative* Elisha Velásquez [...] kidney disease) stage 3, GFR 30-59 ml/min ([facility]) Impaired Fasting Glucose Obesity, Class I, Bmi 30-34.9 Bph With Obstruction/Lower Urinary Tract Symptoms Hydroureteronephrosis Special Screening for Malignant Neoplasms, Colon PCP: Erwin Garcia MD Presents today regarding right medial knee pain has been present for a few weeks. He was seen at [facility] urgent care on January 01, 2024 regarding [...] with RICE, he has been using an mzjw-emc-inewmdt knee brace and Tylenol which ishelping somewhat. [...] Level: 3 - Low documented in this encounterHolzer Medical Center – [place]02-15-2024 History of Present illness Narrative* Trell Goldman APRN-TELETYPE OPERATOR - 01/01/2024 9:10 AM EST 73 y.o. [...] Review Audit Reviewed by Angel Nogueira MA (Club Steward) on 01/01/24 at 0920 Medication Order Taking? Sig Documenting Provider Last Dose Status dutasteride (Avodart) 0.5 mg capsule [id number] Yes Take 1 capsule (0.5 mg) by mouth once daily. Historical ProviderMD Taking Active montelukast (Singulair) 10 mg tablet [id number] Yes Take 1 tablet (10 mg) by mouth. Historical ProviderMD Taking Active multivit with min-folic acid 0.4 mg tablet [id number] Yes once every 24 hours. Historical Provider, Taking Active simvastatin (Zocor) 40 mg tablet [id number] Yes Take 1 tablet (40 mg) by [...] or any new concerns. Trell Goldman CNP [facility] [phone] documented in this encounterTri[facility] Work Phone: 1(391) 555-295602-05-2024 Miscellaneous Notes* Telephone Encounter - Manda Gr [...] notify patient. Kayy Barker documented in this encounterHolzer Medical Center [facility]09-08-2023 Miscellaneous Notes* Telephone Encounter - Lena Zuñiga - 07/25/2023 12:26 PM EDT Patient is switching pharmacies from mail order * Telephone Encounter - Lena Zuñiga - 07/25/2023 12:25 PM EDT Pharmacy verified in Epic Patient has been identified by name and date of : Yes Patient requesting a call when RX is approved and sent to the pharmacy. Please call patient at: [phone] Spouse phones for refill(s): Requested Prescriptions Pending [...] Please advise. Lena Barker documented in this encounterHolzer Medical Center – [place]07-28-2023 Miscellaneous Notes* Telephone Encounter - Isael Lebron APRN.CNP - 06/13/2023 12:56 PM EDT Phone call to patient and discussed results LDCT Lung Rads category 2-repeat CT in 12 mos documented in this encounterHolzer Medical Center – [place]07-17-2023 Miscellaneous Notes* Telephone Encounter - Manda Gr LPN - 06/02/2023 4:46 PM EDT Patient notified of below results/recommendations. Patient is wanting to stay in [place], referral sent to Dr. Romero. Manda Gr LPN * Telephone Encounter - Manda Gr LPN - 06/02/2023 4:41 PM EDT ----- Message from Erwin Garcia MD sent at 05/31/2023 10:52 PM EDT ----- Worse chronic right hydroureteronephrosis, right kidney atrophy. Left kidney okay. I recommend urology consult. documented in this encounterHolzer Medical Center – [place]07-12-2023 Instructions* Patient Instructions* Isael Lebron APRN.YONIS - [...] to endocrinology. Others Lung Cancer Screening hotline: [phone] Lung Cancer Screening [phone] Billing Questions: or [email or web address] Lung Cancer Screening Team: Marylu Manning CNP; Shanae Wilder PA-C; Abby Mills CNP; Katie Ralph CNP, Gail Gonzales PA-C, Mary Partida PA-C, Isael Lebron, TELETYPE OPERATOR : [phone] documented in this encounterHolzer Medical Center – [place]07-12-2023 History of Present illness Narrative* Isael Lebron [...] pre-disease performance w/o restriction. Modified Medical Research [place] Dyspnea Scale (MMRC) I only get breathless [...] WHEN PFRMD 08/19/2018 Colonoscopy LAPAROSCOPY, ENTEROLYSIS 01/25/14 [facility] OPTX ANKLE DISLOCATION W/REPAIR/INT/XTRNL FIXJ Right 2012 [...] result) Impression: IMPRESSION: No acute radiographic abnormality. Side Panel Hanger: ASHLEY Transcribe Date/Time: Jul 31 2017 3:59P [...] 28, 2023 10:52 AM documented in this encounterHolzer Medical Center – [place]04-27-2023 Instructions* Patient Instructions* Erwin Garcia MD - [...] until the day before your colonoscopy. Designated Automatic Corn Grinder Operator on the Day of Your Exam A responsible family member or friend MUST come with you to your colonoscopy and REMAIN in the endoscopy area until you are discharged! You are NOT ALLOWED to drive, take a taxi or bus, or leave the [facility] ALONE. If you do not have a responsible ice cream truck driver (family member or friend) with you [...] carbonated beverages such as stephanie oriana or lemon-dry creek soda; Gatorade or other sports drinks (not [...] calling after 5:00 PM, please call Nurse solutions sales executive at [phone]. [facility] [address] [place] [id number] Index # [id number] Revised 12/2016 3 Colonoscopy Procedure Overview Please [...] If the nausea persists, please contact nurse ironer hand at [phone]. You may experience skin irritation around the anus due to the passage of liquid stools. To prevent and treat skin irritation, you should: ?Apply Vaseline or Desitin ointment to the skin around the anus before drinking the bowel preparation medications. These products can be purchased at any [employer]. ?Wipe the skin after each bowel movement [...] performed your exam. 6 Revised 12/2016 Copyright 5920-0375 [facility]. All rights reserved. Revised 12/2016 Advance Directive Forms Advanced Directives Forms (Gambian) FORMS: http://author.portals.ccf.org/Portals/138/ytcm-zcscwu-llou-dqpgs-dt-xcqxhmbh.pdf INFORMATIONAL BROCHURE: https://my.[facility].org/-/scassets/files/org/patients-visitors/inform ation/advance-directives.ashx?la=en Advance Directives (non-Gambian) FORMS: https://my.[facility].org/patients/information/dkvssmq-lkebwgffy-rgmev/tyson nce-directives#forms-tab Please bring completed forms to your next appointment or email them to [email or web address]. Patient Resources How to Get Started Talking with Loved Ones about your Wishes at the End of Life https://theconversationproject.org/wp-content/uploads//ConversationProjec i-SvvniWbzrjoxHnr-Cfrvxjz.pdf How to Navigate Conversations with your Care Team around your Preferences [email or web address] documented in this encounterHol[facility] History of Present illness Narrative* Erwin Garcia MD - 03/13/2023 8:35 AM EDT This note was created using Zafgen. Subjective Hollie Cullen is a 72 year [...] G-5.84 G POWDR FOR CORI Garcia MD [facility] OPEN ACCESS QUESTIONNAIRE 1. Are you currently [...] Please send all open access questionnaires to [facility] Pool #[id number] * Erwin Garcia MD - 03/13/2023 8:20 AM EDT Hollie Cullen is a 72 year old male here for a Medicare Subsequent Annual Wellness Visit Health Risk Assessment In general, health is: Good Concerns with balance:Several days Concerns with teeth or dentures:Not at all Concerns with sexual function:Not at all [place] anxious, stressed, angry, irritable, lonely, isolated, or [...] Medicine) Outside specialists seen: Dr. Stark, dermatology, [place]. Hatch, optometry, [place]. Medical/Family history review Reviewed and updated problem [...] misuse screening and counseling documented in this encounterHolzer [facility]02-16-2023 Miscellaneous Notes* Telephone Encounter - Diane Lebron Pss - 01/02/2023 1:34 PM EST [facility] Patient has been identified by name and date of : Yes Requested Prescriptions Pending Prescriptions Disp Refills simvastatin (ZOCOR) 40 mg tablet 90 tablet 0 Sig: Take 1 tablet by mouth daily at bedtime. RX INSTRUCTIONS: Patient aware RX will be sent to pharmacy. No need to notify patient. Diane Barker documented in this encounterHolzer Medical Center – [facility]02-06-2023 Miscellaneous Notes* Telephone Encounter - Linda Gray [...] do prior to appointment. documented in this encounterHolzer Medical Center – [facility]02-06-2023 Miscellaneous Notes* Telephone Encounter - Iris Jo LPN - 12/23/2022 11:13 AM EST Last OV 03/08/22 Next OV 03/13/23 * Telephone Encounter - Mala Barker - 12/23/2022 9:43 AM EST Please note: dutasteride goes to [facility]; other 2 scripts go to [facility]. * Telephone Encounter - Mala Barker - [...] patient. Mala Schultz Pss documented in this encounterHolzer Medical Center – [facility]02-06-2023 Evaluation note* Diagnosis Hyperlipidemia, unspecified hyperlipidemia type- Primary Impaired fasting glucose Stage 3a chronic kidney disease (HCC) documented in this encounter [facility] Miscellaneous Notes* Telephone Encounter - Roopa Pugh [...] symptoms; ER if severe. documented in this encounterHolzer Medical Center – [facility]05-19-2022 Instructions* Patient Instructions* Madeline Saucedo APRN.TELETYPE OPERATOR - 04/04/2022 10:55 AM EDT covid test ordered You will be notified in 24 -48 hours, results available on [facility] Home isolation until covid results are [...] breath, inability to swallow. documented in this encounterHolzer Medical Center – [facility]05-19-2022 History of Present illness Narrative* Madeline Saucedo APRN.CNP - 04/04/2022 10:51 AM EDT Subjective The history is provided by the patient. No sign language teacher was used. HPI Hollie Cullen is a [...] have confirmed and edited as necessary, the [facility] Review of Systems Constitutional: Negative for [...] in 24-48 hours with results, available on [facility] Continue prescribed medications Diagnosis and treatment plan were discussed and questions were answered to the patient's satisfaction. Pt acknowledged understanding of concepts and follow up plan. Specific signs and symptoms that would indicate the need for higher level of care were discussed indetail warranting prompt ER evaluation. Madeline Saucedo APRN.YONIS documented in this encounterHolzer Medical Center – [facility]04-22-2022 History of Present illness Narrative* Khadijah Cramer [...] WHEN PFRMD 08/19/2018 Colonoscopy LAPAROSCOPY, ENTEROLYSIS 01/25/14 [facility] OPTX ANKLE DISLOCATION W/REPAIR/INT/XTRNL FIXJ Right 2012 [...] plan. Khadijah Cramer APRN.CNP documented in this encounterHolzer Medical Center – [facility]11-18-2008 History of Past illness Narrative* Problem Noted Date Resolved Date Microscopic hematuria 10/04/2008 07/18/2016 Overview: Recommended Urology referral in 09-24: pipe tobacco, findings on CT See Urology note from 10-24: no further studies recommended Overweight(278.02) 04/20/2008 09/20/2015 Overview: Plans to change his amounts as of 04-24: laughed about using a plant based protein diet documented as of this encounter (statuses as of 03/08/2022) [facility] History of Past illness Narrative* Problem Noted Date Resolved Date Microscopic hematuria 10/04/2008 07/18/2016 Overview: Recommended Urology referral in 09-24: pipe tobacco, findings on CT See Urology note from 10-24: no further studies recommended Overweight(278.02) 04/20/2008 09/20/2015 Overview: Plans to change his amounts as of 04-24: laughed about using a plant based protein diet documented as of this encounter (statuses as of 04/04/2022) [facility] History of Past illness Narrative* Problem Noted Date Resolved Date Microscopic hematuria 10/04/2008 07/18/2016 Overview: Recommended Urology referral in 09-24: pipe tobacco, findings on CT See Urology note from 10-24: no further studies recommended Overweight(278.02) 04/20/2008 09/20/2015 Overview: Plans to change his amounts as of 04-24: laughed about using a plant based protein diet documented as of this encounter (statuses as of 04/05/2022) [place] [address]-18-2008 History of Past illness Narrative* Problem Noted Date Resolved Date Microscopic hematuria 10/04/2008 07/18/2016 Overview: Recommended Urology referral in 09-24: pipe tobacco, findings on CT See Urology note from 10-24: no further studies recommended Overweight(278.02) 04/20/2008 09/20/2015 Overview: Plans to change his amounts as of 04-24: laughed about using a plant based protein diet documented as of this encounter (statuses as of 12/23/2022) [facility] History of Past illness Narrative* Problem Noted Date Resolved Date Microscopic hematuria 10/04/2008 07/18/2016 Overview: Recommended Urology referral in 09-24: pipe tobacco, findings on CT See Urology note from 10-24: no further studies recommended Overweight(278.02) 04/20/2008 09/20/2015 Overview: Plans to change his amounts as of 04-24: laughed about using a plant based protein diet documented as of this encounter (statuses as of 12/23/2022) [facility] History of Past illness Narrative* Problem Noted Date Resolved Date Microscopic hematuria 10/04/2008 07/18/2016 Overview: Recommended Urology referral in 09-24: pipe tobacco, findings on CT See Urology note from 10-24: no further studies recommended Overweight(278.02) 04/20/2008 09/20/2015 Overview: Plans to change his amounts as of 04-24: laughed about using a plant based protein diet documented as of this encounter (statuses as of 01/03/2023) [facility] History of Past illness Narrative* Problem Noted Date Resolved Date Microscopic hematuria 10/04/2008 07/18/2016 Overview: Recommended Urology referral in 09-24: pipe tobacco, findings on CT See Urology note from 10-24: no further studies recommended Overweight(278.02) 04/20/2008 09/20/2015 Overview: Plans to change his amounts as of 04-24: laughed about using a plant based protein diet documented as of this encounter (statuses as of 03/13/2023) [facility] History of Past illness Narrative* Problem Noted [...] of this encounter (statuses as of 05/29/2023) [facility] History of Past illness Narrative* Problem Noted [...] of this encounter (statuses as of 06/01/2023) [facility] History of Past illness Narrative* Problem Noted [...] of this encounter (statuses as of 06/03/2023) [facility] History of Past illness Narrative* Problem Noted [...] of this encounter (statuses as of 06/13/2023) [facility] History of Past illness Narrative* Problem Noted [...] of this encounter (statuses as of 07/25/2023) [facility] History of Past illness Narrative* Problem Noted [...] of this encounter (statuses as of 12/23/2023) [facility] History of Past illness Narrative* Problem Noted [...] of this encounter (statuses as of 01/13/2024) [facility] History of Past illness Narrative* Problem Noted [...] of this encounter (statuses as of 01/14/2024) [facility] JacksonConsult note Author Elana Richmond [facility] Note Date/Time January 31, 2025 5:1 7pm [facility] Medical Records Department [address] [place] [address] Consultation - Surgical 01/31/25 1647 MR#: [id number] Acct: [id number] Name: HOLLIE CULLEN Rep #:[id number] : 1950 74 From: Elana Richmond MD [...] Deferred to urology. Elana Richmond M.D. Pager: [phone] [facility] [address] [place] [address], [facility], [address] [place] [id number] Office: [phone] HPI Consult Data Date of Consult: 01/31/25 [...] there was nothing to do atthat time. [facility] Medical History (Updated 01/31/25 @ 17:16 by [...] 70.8 H, Lymph % (Auto) 16.0 L, [place] % (Auto) 10.8 H, Eos % (Auto) [...] Clarity Cloudy, Urine pH 6.0, Ur Specific [place] 1.015, Urine Protein 15 H, Urine Glucose [...] side. Diffuse bladder wall thickening. Reading Location: [facility] Abdomen Ultrasound 01/31/25 13:15 IMPRESSION: Sludge and gallstones seen within the gallbladder lumen with evidence of gallbladder wall thickening and pericholecystic fluid. Acute cholecystitis should be ruled out. Abnormal appearance of the right kidney as described. Fatty infiltration of the liver. Hepatomegaly. Reading Location: [facility] Charges/Coding Multi Select Codes Visit Charges Office Visit/Consults: 50260 OP Consult L4 01/31/25 1717 <Electronically signed by Elana Richmond MD> Cosigner Signature (if applicable): CC: Dr. Erwin Garcia MD~ Signed [facility] Work Phone: Evaluation note* Diagnosis BPH with obstruction/lower urinary tract symptoms- Primary Hypertrophy of prostate with urinary obstruction and other lower urinary tract symptoms (LUTS) Stage 3a chronic kidney disease (HCC) Hyperlipidemia, unspecified hyperlipidemia type Impaired fasting glucose Obesity, Class I, BMI 30-34.9 Obesity, unspecified documented in this encounter [facility]* Diagnosis Exposure to COVID-19 virus- Primary Upper respiratory symptom Other symptoms involving respiratory system and chest documented in this encounter [facility]* Diagnosis BPH with obstruction/lower urinary tract symptoms Hypertrophy of prostate with urinary obstruction and other lower urinary tract symptoms (LUTS) Chronic rhinitis Hyperlipidemia, unspecified hyperlipidemia type documented in this encounter [facility]* Diagnosis Hyperlipidemia, unspecified hyperlipidemia type documented in this encounter [facility]* Diagnosis Medicare annual wellness visit, subsequent- Primary Routine general medical examination at a health care facility Hyperlipidemia, unspecified hyperlipidemia type Tobacco use disorder Stage 3a chronic kidney disease (HCC) Impaired fasting glucose BPH with obstruction/lower urinary tract symptoms Hypertrophy of prostate with urinary obstruction and other lower urinary tract symptoms (LUTS) Special screening for malignant neoplasms, colon documented in this encounter [facility]* Diagnosis Encounter for screening for lung cancer- Primary Tobacco use current documented in this encounter [facility]* Diagnosis Hydroureteronephrosis- Primary Hydronephrosis Stage 3a chronic kidney disease (HCC) documented in this encounter [facility]* Diagnosis Encounter for screening for lung cancer- Primary Tobacco use current documented in this encounter [facility]* Diagnosis Chronic rhinitis documented in this encounter [facility] noteNo assessment information availableWGalion Community Hospital Work Phone: Evaluation note* Diagnosis BPH with obstruction/lower urinary tract symptoms Hypertrophy of prostate with urinary obstruction and other lower urinary tract symptoms (LUTS) Chronic rhinitis documented in this encounter [facility] note* Diagnosis Injury of right knee, initial encounter- Primary documented in this encounter [facility] Work Phone: evaluation note* Diagnosis Injury of right knee, initial encounter documented in this encounter [facility] Work Phone: Evaluation note* Diagnosis Acute pain of right knee- Primary documented [facility] encounter [facility]* Diagnosis Acute pain of right knee- Primary documented in this encounter [facility] note* Diagnosis Stage 3a chronic kidney disease (HCC)- Primary Hyperlipidemia, unspecified hyperlipidemia type Impaired fasting glucose documented in this encounter [facility] note* Diagnosis Medicare annual wellness visit, subsequent- Primary Routine general medical examination at a health care facility Hyperlipidemia, unspecified hyperlipidemia type Stage 3a chronic kidney disease (HCC) Impaired fasting glucose Benign neoplasm of colon, unspecified part of colon Need for COVID-19 vaccine [facility]* Diagnosis Multiple lung nodules- Primary Other nonspecific abnormal finding of lung field Encounter for screening for lung cancer Tobacco use current documented in this encounter [facility] note* Diagnosis Encounter for screening for lung cancer Tobacco use current documented in this encounter [facility] note* Diagnosis Chronic rhinitis documented in this encounter [facility] note* Diagnosis BPH with obstruction/lower urinary tract symptoms Hypertrophy of prostate with urinary obstruction and other lower urinary tract symptoms (LUTS) documented in this encounter [facility] note* Diagnosis Hyperlipidemia, unspecified hyperlipidemia type documented in this encounter [facility] note* Diagnosis Medicare annual wellness visit, subsequent- [...] cholecystitis or obstruction documented in this encounter [facility] note* Diagnosis Calculus of gallbladder without cholecystitis without obstruction- Primary Biliary colic Calculus of gallbladder without mention of cholecystitis or obstruction documented in this encounter [facility] Work Phone: Reason for referral (narrative)* Outpatient Procedure (Routine) - Pending Review Specialty Diagnoses / Procedures Referred By Contac t Referred To Contact [facility] Diagnoses Special screening for malignant neoplasms, colon Procedures COLONOSCOPY SCREENING COLONOSCOPY FLX DX W/COLLJ SPEC WHEN PFRMD Erwin Garcia MD [address] [place] [address] [facility] [address] [place] [address] Referral ID Status Reason Start Date Expiration Date Visits Requested Visits Authorized [id number] Pending Review Auto-Generat ed Referral 03/13/2023 03/13/2024 1 1 * Diagnostic Procedure Only (Routine) - Authorized Specialty Diagnoses / Procedures Referred By Contac t Referred To Contact [facility] Diagnoses Stage 3a chronic kidney disease (HCC) Procedures US KIDNEY/BLADDER US RETROPERITONEAL REAL TIME W/[place] [address] [place] [address] Us Imaging Referral ID Status Reason Start Date Expiration Date Visits Requested Visits Authorized [id number] Authorized Auto-Generat ed Referral 03/13/2023 04/11/2024 1 1 [facility] for referral (narrative)No reason for referral information availableWGalion Community Hospital Work Phone: Advance Directives No Advanced Directives Records FoundDocuments on File Type Date Recorded 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 No January 31, 2025 10:30am Living Will No February 25, 2025 11:29am Do you have a Healthcare Power of Wood Form Builder? No February 25, 2025 11:29am Health Concerns [...] DOSE LNG CA SCR Hernandez- Isael Lebron, OUTSEWER.TELETYPE OPERATOR [address] [place] [address] Ct Imaging Referral ID Status Reason Start Date Expiration Date Visits Requested Visits Authorized [id number] Authorized Auto-Generat ed Referral 05/28/2023 06/26/2024 1 1 Specialty Diagnoses / Procedures Referred By Contac t Referred To Contact Urology Diagnoses Hydroureteronephrosis Stage 3a chronic kidney disease (HCC) Procedures CONSULT TO UROLOGY OFFICE/OUTPATIENT [facility] MDM 60-74 MINUTES Erwin Garcia MD [address] [place] [address] Referral ID Status Reason Start Date Expiration Date Visits Requested Visits Authorized [id number] Authorized PCP Requested Referral 05/31/2023 05/30/2024 1 1 Referral ID Status Reason Start Date Expiration Date Visits Requested Visits Authorized [id number] Pending Review Auto-Generat ed Referral 06/13/2024 07/12/2024 1 1 Specialty Diagnoses / Procedures Referred By Contac t Referred To Contact Radiology Diagnoses Injury of right knee, initial encounter Procedures XR knee right 3 views Trell Goldman, OUTSEWER-TELETYPE OPERATOR [address] [place] [address] Referral ID Status Reason Start Date Expiration Date Visits Requested Visits Authorized [id number] Authorized Perform Procedure 01/01/2024 12/31/2024 1 1 Specialty Diagnoses / Procedures Referred By Contac t Referred To Contact Orthopedics Diagnoses Acute pain of right knee Procedures CONSULT TO ORTHOPAEDICS OFFICE/OUTPATIENT [facility] MDM 60 MINUTES Elisha eVlásquez, OUTSEWER.DISCHARGE RN [address] [place] [address] Referral ID Status Reason Start Date Expiration Date Visits Requested Visits Authorized [id number] Authorized PCP Requested Referral 01/13/2024 01/12/2025 1 1 Specialty Diagnoses / Procedures Referred By Contac t Referred To Contact Diagnoses Acute pain of right knee Elisha Velásquez, OUTSEWER.DISCHARGE RN [address] [place] [address] Referral ID Status Reason Start Date Expiration Date Visits Re quested Visits Authorized [id number] Closed 1 1 Specialty Diagnoses / Procedures Referred By Contac t Referred To Contact CT IMAGING Diagnoses Encounter for screening for lung cancer Tobacco use current Procedures CT LUNG SCREEN WO IVCON COMPUTED TOMOGRAPHY THORAX LW DOSE LNG CA SCR Hernandez- Isael Lebron, OUTSEWER.TELETYPE OPERATOR [address] [place] [address] [place] [address] Referral ID Status Reason Start Date Expiration Date Visits Requested Visits Authorized [id number] Authorized Auto-Generat ed Referral 06/14/2024 07/14/2025 1 [...] or prosecute any alcohol or drug abuse patient.[facility] the event this information is protected by the Federal Confidentiality of Alcohol and Drug Abuse Patient Records regulations: The Federal rules restrict any use of the information to criminally investigate or prosecute any alcohol or drug abuse patient.[facility] JacksonIn the event this information is protected by the Federal Confidentiality of Alcohol and Drug Abuse Patient Records regulations: The Federal rules restrict any use of the information to criminally investigate or prosecute any alcohol or drug abuse patient.[facility] JacksonIn the event this information is protected by the Federal Confidentiality of Alcohol and Drug Abuse Patient Records regulations: The Federal rules restrict any use of the information to criminally investigate or prosecute any alcohol or drug abuse patient.[facility] JacksonIn the event this information is protected by the Federal Confidentiality of Alcohol and Drug Abuse Patient Records regulations: The Federal rules restrict any use of the information to criminally investigate or prosecute any alcohol or drug abuse patient.[facility] JacksonIn the event this information is protected by the Federal Confidentiality of Alcohol and Drug Abuse Patient Records regulations: The Federal rules restrict any use of the information to criminally investigate or prosecute any alcohol or drug abuse patient.[facility] JacksonIn the event this information is protected by the Federal Confidentiality of Alcohol and Drug Abuse Patient Records regulations: The Federal rules restrict any use of the information to criminally investigate or prosecute any alcohol or drug abuse patient.[facility] JacksonIn the event this information is protected by the Federal Confidentiality of Alcohol and Drug Abuse Patient Records regulations: The Federal rules restrict any use of the information to criminally investigate or prosecute any alcohol or drug abuse patient.[facility] JacksonIn the event this information is protected by the Federal Confidentiality of Alcohol and Drug Abuse Patient Records regulations: The Federal rules restrict any use of the information to criminally investigate or prosecute any alcohol or drug abuse patient.[facility] JacksonIn the event this information is protected by the Federal Confidentiality of Alcohol and Drug Abuse Patient Records regulations: The Federal rules restrict any use of the information to criminally investigate or prosecute any alcohol or drug abuse patient.[facility] JacksonIn the event this information is protected by the Federal Confidentiality of Alcohol and Drug Abuse Patient Records regulations: The Federal rules restrict any use of the information to criminally investigate or prosecute any alcohol or drug abuse patient.[facility] JacksonIn the event this information is protected by the Federal Confidentiality of Alcohol and Drug Abuse Patient Records regulations: The Federal rules restrict any use of the information to criminally investigate or prosecute any alcohol or drug abuse patient.[facility] JacksonIn the event this information is protected by the Federal Confidentiality of Alcohol and Drug Abuse Patient Records regulations: The Federal rules restrict any use of the information to criminally investigate or prosecute any alcohol or drug abuse patient.[facility] JacksonIn the event this information is protected by the Federal Confidentiality of Alcohol and Drug Abuse Patient Records regulations: The Federal rules restrict any use of the information to criminally investigate or prosecute any alcohol or drug abuse patient.[facility] JacksonIn the event this information is protected by the Federal Confidentiality of Alcohol and Drug Abuse Patient Records regulations: The Federal rules restrict any use of the information to criminally investigate or prosecute any alcohol or drug abuse patient.[facility] JacksonIn the event this information is protected by the Federal Confidentiality of Alcohol and Drug Abuse Patient Records regulations: The Federal rules restrict any use of the information to criminally investigate or prosecute any alcohol or drug abuse patient.[facility] JacksonIn the event this information is protected by the Federal Confidentiality of Alcohol and Drug Abuse Patient Records regulations: The Federal rules restrict any use of the information to criminally investigate or prosecute any alcohol or drug abuse patient.[facility] JacksonIn the event this information is protected by the Federal Confidentiality of Alcohol and Drug Abuse Patient Records regulations: The Federal rules restrict any use of the information to criminally investigate or prosecute any alcohol or drug abuse patient.[facility] JacksonIn the event this information is protected by the Federal Confidentiality of Alcohol and Drug Abuse Patient Records regulations: The Federal rules restrict any use of the information to criminally investigate or prosecute any alcohol or drug abuse patient.[facility] JacksonIn the event this information is protected by the Federal Confidentiality of Alcohol and Drug Abuse Patient Records regulations: The Federal rules restrict any use of the information to criminally investigate or prosecute any alcohol or drug abuse patient.[facility] JacksonIn the event this information is protected by the Federal Confidentiality of Alcohol and Drug Abuse Patient Records regulations: The Federal rules restrict any use of the information to criminally investigate or prosecute any alcohol or drug abuse patient.[facility] JacksonIn the event this information is protected by the Federal Confidentiality of Alcohol and Drug Abuse Patient Records regulations: The Federal rules restrict any use of the information to criminally investigate or prosecute any alcohol or drug abuse patient.[facility] JacksonIn the event this information is protected by the Federal Confidentiality of Alcohol and Drug Abuse Patient Records regulations: The Federal rules restrict any use of the information to criminally investigate or prosecute any alcohol or drug abuse patient.[facility] JacksonIn the event this information is protected by the Federal Confidentiality of Alcohol and Drug Abuse Patient Records regulations: The Federal rules restrict any use of the information to criminally investigate or prosecute any alcohol or drug abuse patient.[facility] JacksonIn the event this information is protected by the Federal Confidentiality of Alcohol and Drug Abuse Patient Records regulations: The Federal rules restrict any use of the information to criminally investigate or prosecute any alcohol or drug abuse patient.[facility] JacksonIn the event this information is protected by the Federal Confidentiality of Alcohol and Drug Abuse Patient Records regulations: The Federal rules restrict any use of the information to criminally investigate or prosecute any alcohol or drug abuse patient.[facility] Reason for Visit (unrecogniz ed section and [...] XR knee right 3 views Trell Goldman, OUTSEWER-TELETYPE OPERATOR [address] [id number] Referral ID Status Reason Start Date Expiration Date Visits Requested Visits Authorized [id number] Authorized Perform Procedure 01/01/2024 12/31/2024 1 1 [...] THORAX LW DOSE LNG CA SCR C- BallwinIsael henderson, OUTSEWER.TELETYPE OPERATOR [address] [place] [address] [address] [facility] [place] [id number] Referral ID Status Reason Start Date Expiration Date V isits Requested Visits Authorized [id number] Closed Auto-Generate d Referral 06/13/2024 07/12/2024 [address] Specialty Diagnoses / [facility] Diagnoses Encounter for screening for lung cancer Tobacco use current Procedures CT LUNG SCREEN WO IVCON COMPUTED TOMOGRAPHY THORAX LW DOSE LNG CA SCR C- Isael Lebron, OUTSEWER.TELETYPE OPERATOR [address] [place] [address] Ct Imaging [facility] Reason Comments Patient Question Reason Onset Date Comments Refill Request 07/08/2024 Reason Onset Date Comments Refill Request 10/25/2024 Reason Comments Abdominal Pain Reason Onset Date Comments Refill Request 03/02/2025 Reason Comments Medicare Wellness Exam Reason Comments Chest Pain 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 While watching tv, took 1 nitro at home with no relief Care Teams (unrecognized sec tion and content) Material Inspector Relationship Specialty Start Date End Date Erwin Garcia MD [address] [facility] [place] [address] PCP - General Internal Medicine 07/18/16 Material Inspector Relationship Specialty Start Date End Date Erwin Garcia MD [address] [facility] [address] PCP - General Internal Medicine 07/18/16 Material Inspector Relationship Specialty Start Date End Date Erwin Garcia MD [address] [place] [address] PCP - General Internal Medicine 07/18/16 Material Inspector Relationship Specialty Start Date End Date Erwin Garcia MD [address] [facility] [place] [address] PCP - General Internal Medicine 07/18/16 Material Inspector Relationship Specialty Start Date End Date Erwin Garcia MD [address] [facility] [place] [address] PCP - General Internal Medicine 07/18/16 Material Inspector Relationship Specialty Start Date End Date Erwin Garcia MD [address] [facility] [place] [address] PCP - General Internal Medicine 07/18/16 Material Inspector Relationship Specialty Start Date End Date Erwin Garcia MD [address] [place] [address] PCP - General Internal Medicine 07/18/16 Material Inspector Relationship Specialty Start Date End Date Erwin Garcia MD [address] [place] [address] PCP - General Internal Medicine 07/18/16 Material Inspector Relationship Specialty Start Date End Date Erwin Garcia MD [address] [facility] [place] [address] PCP - General Internal Medicine 07/18/16 Material Inspector Relationship Specialty Start Date End Date Erwin Garcia MD [address] [facility] [address] PCP - General Internal Medicine 07/18/16 Material Inspector Relationship Specialty Start Date End Date Erwin Garcia MD [address] [facility] [place] [address] PCP - General Internal Medicine 07/18/16 Team Status: Active Member Role Status Dates Dr. Loreto Chamapgne MD Family Provider Active Dr. Loreto Champagne MD Primary Care Provider Active Team Status: Inactive Member Role Status Dates Dr. Loreto Champagne MD Primary Care Provider Active Milagros Clark Attending Provider, Referring Provide r Active Material Inspector Relationship Specialty Start Date End Date Erwin Garcia MD [address] [facility] [place] [address] PCP - General Internal Medicine 07/18/16 Material Inspector Relationship Specialty Start Date End Date Erwin Garcia MD [address] [facility] [place] [address] PCP - General Internal Medicine 01/01/24 Material Inspector Relationship Specialty Start Date End Date Erwin Garcia MD [address] [facility] [address] PCP - General Internal Medicine 07/18/16 Material Inspector Relationship Specialty Start Date End Date Erwin Garcia MD [address] [facility] [place] [address] PCP - General Internal Medicine 07/18/16 Material Inspector Relationship Specialty Start Date End Date Erwin Garcia MD [address] [facility] [address] PCP - General Internal Medicine 07/18/16 Material Inspector Relationship Specialty Start Date End Date Erwin Garcia MD [address] [place] [address] PCP - General Internal Medicine 07/18/16 Material Inspector Relationship Specialty Start Date End Date Erwin Garcia MD [address] [place] [address] PCP - General Internal Medicine 07/18/16 Material Inspector Relationship Specialty Start Date End Date Erwin Garcia MD [address] [place] [address] PCP - General Internal Medicine 07/18/16 Material Inspector Relationship Specialty Start Date End Date Erwin Garcia MD [address] [place] [address] PCP - General Internal Medicine 07/18/16 Material Inspector Relationship Specialty Start Date End Date Erwin Garcia MD [address] [place] [address] PCP - General Internal Medicine 07/18/16 Khadijah Raman, OUTSEWER.TELETYPE OPERATOR [address] [place] [address] [facility] Internal Medicine 10/25/24 Material Inspector Relationship Specialty Start Date End Date Erwin Garcia MD [address] [place] [address] PCP - General Internal Medicine 07/18/16 Khadijah Raman, OUTSEWER.TELETYPE OPERATOR [address] [place] [address] [facility] Internal Medicine 10/25/24 Team Status: Active [...] February 25, 2025 End: February 27, 2025 Material Inspector Relationship Specialty Start Date End Date Erwin Garcia MD [address] [place], [place] [address] PCP - General Internal Medicine 07/18/16 Khadijah Raman, OUTSEWER.TELETYPE OPERATOR [address] [place] [address] Publishing Editor Internal Medicine 10/25/24 Material Inspector Relationship Specialty Start Date End Date Erwin Garcia MD [address] [place], [place] [address] PCP - General Internal Medicine 07/18/16 Khadijah Raman, OUTSEWER.TELETYPE OPERATOR [address] [place], [place] [address] Publishing Editor Internal Medicine 10/25/24 Material Inspector Relationship Specialty Start Date End Date Erwin Garcia MD [address] [place], [place] [address] PCP - General Internal Medicine 01/01/24 (unrecognized sect ion and content) No Status Records FoundNo Status Records FoundNo Status Records FoundNo Status Records Found INFORMATION SOURCE (unrecogn ized section and content) DATE CREATED AUTHOR 11/13/2022 [facility] DATE CREATED AUTHOR AUTHOR'S ORGANIZ ATION 03/16/2025 [facility] DATE CREATED AUTHOR AUTHOR'S ORGANIZ ATION 03/23/2025 [facility] DATE CREATED AUTHOR AUTHOR'S ORGANIZ ATION 04/25/2025 [facility] Goals (unrecognized section and content) Goals [...] BE BASED ON THE PRIMARY CLINICAL RECORDS. [facility]. provides no warranty or guarantee of the accuracy or completeness of information in this document.
[2025-04-26] MEDS: 0.9% Normal Saline (1000mL) 1,000 ML 150 ML IV ×4 (01:01→20:33)
[2025-04-26] MEDS: Morphine 4 MG/ML Syringe IV ×4 (01:05→12:59)
--- NOTE | 2025-04-26 01:25 | EKG12_ITS ---
Test Reason : PRE-OP Blood Pressure : */* mmHG Vent. Rate : 74 BPM Atrial Rate : 74 BPM P-R Int : 156 ms QRS Dur : 86 ms QT Int : 358 ms P-R-T Axes : 68 4 59 degrees QTcB Int : 397 ms Normal sinus rhythm Low voltage QRS Borderline ECG When compared with ECG of 15-Feb-2025 08:56, Borderline criteria for Inferior infarct are no longer Present Confirmed by Ace Braswell ([id number]), newspaper photo editor LUIZ SEGURA ([id number]) on 04/26/2025 11:09:19 AM Referred By: EVI Confirmed By: Ace Braswell
[2025-04-26 06:10] LABS: Absolute Lymphocyte Count 0.72 X10^3/uL (0.83-4.51); Absolute Neutrophil Count 8.3 X10^3/uL (2.0-7.7); Basophil# 0.02 X10^3/uL; Basophil% 0.2 % (0-1); Eosinophil# 0.05 X10^3/uL; Eosinophils% 0.5 % (0-5); Hematocrit 41.8 % (40-54); Hemoglobin 13.8 g/dL (13.0-16.5); Lymphocyte # 0.72 X10^3/ul (0.83-4.51); Lymphocyte % 7.5 % (19-41); Mean Corpuscular Hgb 28.6 pg (27.0-32.0); Mean Corpuscular Volume 86.5 fL (80-94); Mean Platelet Vol. 11.1 fl (6.2-12.0); Monocyte% 5.2 % (0-10); NRBC Flagged by Analyzer 0 % (0-5); Neutrophil # 8.33 X10^3/uL (2.7-7.7); Neutrophil % 86.3 % (47-70); Platelet Count 155 K/mm3 (150-450); Red Blood Count 4.83 M/mm3 (4.6-6.2); White Blood Count 9.7 K/mm3 (4.4-11.0)
[2025-04-26 06:58] LABS: Lipase 2883 U/L (13-75)
[2025-04-26 07:00] LABS: ALB/GLOB Ratio 1.5 RATIO (0.9-2.4); AST(SGOT) 325 U/L (<=37); Alanine Aminotransfer ALT/SGPT 605 U/L (<=46); Albumin, Serum 3.6 g/dL (3.4-4.8); Alkaline Phosphatase 189 U/L (40-129); Anion Gap 10 (5-15); BUN 16 mg/dL (4-19); BUN/Creat Ratio 10.4 RATIO (10-20); Calcium,Total 8.4 mg/dL (7.6-11.0); Carbon Dioxide 22.5 mmol/L (21.0-32.0); Chloride 107 mmol/L (98-108); Creatinine, Serum 1.52 mg/dL (0.70-1.20); EST Glomerular Filtration Rate 48 (>60); Estimated Creatinine Clearance 53.01 ml/min (50-250); Globulin 2.4 g/dL (2.2-4.2); Glucose 124 mg/dL (70-99); Potassium 4.6 mmol/L (3.3-5.1); Sodium Level 140 mmol/L (133-145); Total Bilirubin 3.79 mg/dL (0.00-1.30)
--- NOTE | 2025-04-26 07:07 | EX.PCM.CON.S ---
Assessment & Plan Assessment/Plan (1) Jaundice: (2) Cholelithiasis: PLAN: Plan The patient has gallstone pancreatitis. He had elevation of his lipase as well as LFTs. He has no signs of acute cholecystitis on ultrasound. He does have cholelithiasis. Recommend GI consult for ERCP. I will be involved after ERCP to discuss and plan laparoscopic cholecystectomy. Rad Arnold MD Pager: [facility] [address] [place] [address], [address] [place] [address] Office: HPI Consult Data Date of Consult: 04/26/25 HPI Narrative HPI Narrative: HOLLIE POWERS, is a 74 M who presents with abdominal pain. Patient reports abdominal pain lower in his abdomen but he says whenever a hiccups or burps that radiates upward. He also reports that he was having some nausea and vomiting before admission. The patient was seen back in January for acute cholecystitis but surgery was deferred. [facility] Medical History Wears glasses Wears dentures Wears partial dentures Alcohol use Loss of consciousness Dietary restriction Gastric reflux Smoker Chronic cough Hyperlipemia Kidney disease Home Medications ?Medication ?Instructions ?Recorded ?Last Taken ?Type multivitamin with folic acid 400 1 tab PO DAILY 06/12/15 02/04/25 History mcg tablet (Thera) dutasteride 0.5 mg capsule 0.5 mg PO DAILY 01/31/25 Unknown History montelukast 10 mg tablet 10 mg PO QHS allergies 01/31/25 02/24/25 History simvastatin 40 mg tablet 40 mg PO QHS 01/31/25 Unknown History omeprazole 40 mg capsule,delayed 40 mg PO QDAY #30 caps 02/08/25 Unknown Rx release oxycodone 5 mg tablet 5 mg PO Q6H PRN pain 7 days #14 02/25/25 Unknown Rx tabs tamsulosin 0.4 mg capsule (Flomax) 0.4 mg PO DAILY #30 caps 02/27/25 Unknown Rx Allergy/AdvReac Type Severity Reaction Status Date / Time No Known Allergies Allergy Verified 04/25/25 21:09 Family History Mother Diabetes Brother Diabetes Colon cancer Surgical History Hx of laparoscopy Status post appendectomy Social History Smoking Status: Light Smoker (<10/day) quit status: not considering quitting ROS Constitutional Constitutional: Denies anorexia, chills, fatigue or fever(s) Eyes Eyes: Denies blurry vision ENT HEENT: Denies abnormal hearing Respiratory/Chest Respiratory/Chest: Denies cough or dyspnea Gastrointestinal Gastrointestinal: Reports abdominal pain, nausea and vomiting; Denies constipation Genitourinary Genitourinary: Denies change in urinary stream or difficulty urinating Musculoskeletal Musculoskeletal: Denies abnormal gait Integumentary Integumentary: Denies jaundice or new lesions Neurologic Neurologic: Denies abnormal gait Physical Exam Const alert and oriented x3 HEENT normocephalic Eyes PERRL Resp normal respiratory effort Cardio Rate: regular rate Rhythm: regular rhythm GI soft to palpation Palpation: tender Lab / Micro Data 04/26/25 05:45 04/26/25 05:45 Labs: Laboratory Results - last 24 hr 04/25/25 21:16: WBC 10.9, RBC 5.66, Hgb 15.8, Hct 47.8, MCV 84.5, MCH 27.9, MCHC 33.1, RDW Std Deviation 42.5, RDW Coeff of Mildred 13.9, Plt Count 197, MPV 11.1, Immature Gran % (Auto) 0.400, Neut % (Auto) 76.3 H, Lymph % (Auto) 10.5 L, [place] % (Auto) 11.7 H, Eos % (Auto) 0.7, Baso % (Auto) 0.4, Absolute Neuts (auto) 8.3 H, Absolute Lymphs (auto) 1.15, Nucleated RBC % 0, Sodium 140, Potassium 3.9, Chloride 104, Carbon Dioxide 22.9, Anion Gap 13, BUN 13, Creatinine 1.49 H, Estim Creat Clear Calc 53.81, Est GFR (MDRD) Non-Af 50 L, BUN/Creatinine Ratio 8.7 L, Glucose 162 H, Calcium 9.7, Total Bilirubin 5.33 H, AST 486 H, ALT 835 H, Alkaline Phosphatase 228 H, Total Protein 7.4, Albumin 4.3, Globulin 3.1, Albumin/Globulin Ratio 1.4, Lipase > 3000 H 04/26/25 05:45: WBC 9.7, RBC 4.83, Hgb 13.8, Hct 41.8, MCV 86.5, MCH 28.6, MCHC 33.0, RDW Std Deviation 45.0 H, RDW Coeff of Mildred 14.0, Plt Count 155, MPV 11.1, Immature Gran % (Auto) 0.300, Neut % (Auto) 86.3 H, Lymph % (Auto) 7.5 L, [place] % (Auto) 5.2, Eos % (Auto) 0.5, Baso % (Auto) 0.2, Absolute Neuts (auto) 8.3 H, Absolute Lymphs (auto) 0.72 L, Nucleated RBC % 0, Sodium 140, Potassium 4.6, Chloride 107, Carbon Dioxide 22.5, Anion Gap 10, BUN 16, Creatinine 1.52 H, Estim Creat Clear Calc 53.01, Est GFR (MDRD) Non-Af 48 L, BUN/Creatinine Ratio 10.4, Glucose 124 H, Calcium 8.4, Total Bilirubin 3.79 H, AST 325 H, ALT 605 H, Alkaline Phosphatase 189 H, Total Protein 6.0, Albumin 3.6, Globulin 2.4, Albumin/Globulin Ratio 1.5, Lipase 2883 H Imaging Radiology Impression Gallbladder Ultrasound 04/25/25 22:10 IMPRESSION: Cholelithiasis without evidence of acute cholecystitis. Reading Location: [id number]
--- NOTE | 2025-04-26 07:35 | PCM.PN.HOSP ---
Reason for Visit Reason for Visit: Diagnoses Calculus of gallbladder without cholecystitis without obstruction (04/26/25) Acute pancreatitis without necrosis or infection, unspecified (04/26/25) Unspecified jaundice (04/26/25) Elevation of levels of liver transaminase levels (04/26/25) Subjective Subjective Still with umbilical abdominal pain. Objective Data Objective Data Vital Signs: Vital Signs Temp Pulse Resp BP Pulse Ox O2 Del Method O2 Flow Rate 37.1 C 74 20 H 139/69 H 93 Nasal Cannula 2 04/26/25 06:15 04/26/25 06:15 04/26/25 06:15 04/26/25 06:15 04/26/25 06:15 04/26/25 06:15 04/26/25 06:15 Oxygen Flow Rate (L/min) 2 Oxygen Delivery Method Nasal Cannula Weight: 103.8 kg Body Mass Index (BMI) 32.8 Intake & Output: Intake and Output for Last 24 Hours 04/24/25 04/25/25 04/26/25 23:59 23:59 23:59 Intake Total 1000 / 1000 800 / 800 Balance 1000 / 1000 800 / 800 Lab / Micro Data 04/26/25 05:45 04/26/25 05:45 Labs: Laboratory Results - last 24 hr 04/25/25 21:16: WBC 10.9, RBC 5.66, Hgb 15.8, Hct 47.8, MCV 84.5, MCH 27.9, MCHC 33.1, RDW Std Deviation 42.5, RDW Coeff of Mildred 13.9, Plt Count 197, MPV 11.1, Immature Gran % (Auto) 0.400, Neut % (Auto) 76.3 H, Lymph % (Auto) 10.5 L, [place] % (Auto) 11.7 H, Eos % (Auto) 0.7, Baso % (Auto) 0.4, Absolute Neuts (auto) 8.3 H, Absolute Lymphs (auto) 1.15, Nucleated RBC % 0, Sodium 140, Potassium 3.9, Chloride 104, Carbon Dioxide 22.9, Anion Gap 13, BUN 13, Creatinine 1.49 H, Estim Creat Clear Calc 53.81, Est GFR (MDRD) Non-Af 50 L, BUN/Creatinine Ratio 8.7 L, Glucose 162 H, Calcium 9.7, Total Bilirubin 5.33 H, AST 486 H, ALT 835 H, Alkaline Phosphatase 228 H, Total Protein 7.4, Albumin 4.3, Globulin 3.1, Albumin/Globulin Ratio 1.4, Lipase > 3000 H 04/26/25 05:45: WBC 9.7, RBC 4.83, Hgb 13.8, Hct 41.8, MCV 86.5, MCH 28.6, MCHC 33.0, RDW Std Deviation 45.0 H, RDW Coeff of Mildred 14.0, Plt Count 155, MPV 11.1, Immature Gran % (Auto) 0.300, Neut % (Auto) 86.3 H, Lymph % (Auto) 7.5 L, [place] % (Auto) 5.2, Eos % (Auto) 0.5, Baso % (Auto) 0.2, Absolute Neuts (auto) 8.3 H, Absolute Lymphs (auto) 0.72 L, Nucleated RBC % 0, Sodium 140, Potassium 4.6, Chloride 107, Carbon Dioxide 22.5, Anion Gap 10, BUN 16, Creatinine 1.52 H, Estim Creat Clear Calc 53.01, Est GFR (MDRD) Non-Af 48 L, BUN/Creatinine Ratio 10.4, Glucose 124 H, Calcium 8.4, Total Bilirubin 3.79 H, AST 325 H, ALT 605 H, Alkaline Phosphatase 189 H, Total Protein 6.0, Albumin 3.6, Globulin 2.4, Albumin/Globulin Ratio 1.5, Lipase 2883 H Radiography Diagnostic Testing: Radiology Impression Gallbladder Ultrasound 04/25/25 22:10 IMPRESSION: Cholelithiasis without evidence of acute cholecystitis. Reading Location: [facility] Physical Exam Const alert and no apparent distress HEENT head/scalp atraumatic and moist oral mucous membranes Resp normal respiratory effort and no retractions GI soft to palpation, non-tender and non-distended Extremity normal to inspection and full ROM Neuro moves all extremities and no focal motor deficits Sensorium / Orientation: awake and alert Psych affect normal Assessment & Plan Assessment/Plan (1) Pancreatitis: PLAN: concerning for gallstone induced pancreatitis. GI on consult for ERCP General surgery on consult, no acute surgical plans. Will be determined post-ERCP continue fluids and pain control. PLAN: Plan BPH: continue tamsulosin GERD: continue PPI. VTE prophylaxis: LMWH. Charges/Coding Visit Charges Inpatient E&M: 31748 Subs Hosp L2
[2025-04-26] MEDS: 0.9% Saline Lock 10 ML Syringe IV ×2 (08:12→13:00)
[2025-04-26] MEDS: Tamsulosin HCl 0.4 MG Capsule PO (10:29)
[2025-04-26] MEDS: Pantoprazole Sodium 40 MG Tablet PO (10:29)
--- NOTE | 2025-04-26 11:12 | CASEMGMT ---
AILEEN JJ Assessment: Face to Face with pt for initial transition planning/care coordination assessment. RN PARVIZ introduced self and role at [facility], pt voices understanding and consents to assessment. Pt is A&O x4 and answers all questions appropriately at this time. Pt sitting up in bed with oxygen on in no distress. Care providers, pharmacy, and demographics verified/updated. Admitting Dx: gallstones pancreatitis Strata Score: 1 PCP:Jose Specialists:Denies Preferred Pharmacy:[facility] Insurance: [facility] Prescription Benefit: yes LNOK: Nata Subhash, Living Arrangements: Pt lives with in a single story home with no steps to enter. Pt reports he is I in ADL/IADLs and denies concerns at home. Transportation: Pt drives self and denies concerns with transportation. DME:2 walkers, 2 canes, handicap accessible shower with seat and grab bars, high rise toilet, [facility] HHC/SNF: Denies hx of Pt states no concerns with going home at time of dc. Pt states no further concerns/needs. CM to follow. Advised pt to ask CM if any further questions/concerns/needs arise, voices understanding. Pt Goal: Home Plan: Home aMrk GALLAGHER CM
--- NOTE | 2025-04-26 13:50 | PCM.PN.BLA ---
Progress Note 74-year-old male with past medical history of chronic kidney disease status post right nephrectomy, hyperlipidemia, alcohol use who presented to the emergency department chief complaint of concern that his gallbladder is being obstructed by stone. He states that on Friday he had significant pain he went to a freestanding ER in [place] and had a CT scan that showed a large stone at that point in time. He states that as the weekend progressed and into today's pain significantly worsened prompting him to come here for further evaluation management. Physical Exam Const alert, oriented x3, no apparent distress and healthy appearing General Appearance: cooperative GI normal to inspection, nondistended, normoactive bowel sounds, soft to palpation, non-tender and non-distended Percussion: normal to percussion Rectal Exam: deferred Assessment & Plan Assessment/Plan (1) Pancreatitis: PLAN: 74 yo with abdominal pain and was discovered to have jaundice, cholestatic hepatitis and gallstone induced pancreatitis. He will undergo ERCP with evaluated hepatobiliary system. He was explained alternatives, risk and benefits include understanding bleeding, infection, sepsis, perforation, need for more surgery . He will have an ASA of 3. PLAN: Plan BPH: continue tamsulosin GERD: continue PPI. VTE prophylaxis: LMWH. Visit Charges Inpatient E&M: [id number] [facility] Hosp L3
--- NOTE | 2025-04-26 15:28 | PRE.ANES_ITS ---
ASA Classification* ASA Classification ASA Classification: 2 Assessment & Plan Anesthesia* Anesthesia Assessment Anesthesia Assessment: Discussed sedation and/or anesthesia options, risks, benefits, and alternatives with patient/parents/legal guardian/POA. Questions invited. The patient/parents/legal guardian/POA seems to understand and agrees to proceed with anesthesia plan. Reviewed the physical assessment, medical history, allergy history and patient home medications list prior to surgery/procedure/anesthetic and documented any changes. Performed airway and anesthesia risk assessments. Anesthesia Type Anesthesia Type: General Anesthesia Focused Assessment* Temperature: 98.8 F Pulse Rate: 77 Blood Pressure: 126/65 Respiratory Rate: 18 Pulse Ox: 96 Oxygen Flow Rate (L/min): 2 Airway Assessment Mouth opens: >3 cm Mallampati Score: II Labs Anesthesia Preop lab: CBC WBC 9.7 K/mm3 (4.4-11.0) 04/26/25 05:45 04/26/25 RBC 4.83 M/mm3 (4.6-6.2) 04/26/25 05:45 04/26/25 Hgb 13.8 g/dL (13.0-16.5) 04/26/25 05:45 04/26/25 Hct 41.8 % (40-54) 04/26/25 05:45 04/26/25 Plt Count 155 K/mm3 (150-450) 04/26/25 05:45 04/26/25 CHEMISTRY Potassium 4.6 mmol/L (3.3-5.1) 04/26/25 05:45 04/26/25 Sodium 140 mmol/L (133-145) 04/26/25 05:45 04/26/25 BUN 16 mg/dL (4-19) 04/26/25 05:45 04/26/25 Creatinine 1.52 mg/dL (0.70-1.20) H 04/26/25 05:45 Glucose 124 mg/dL (70-99) H 04/26/25 05:45 04/26/25 COAG Pre-Assessment Diagnosis/Proposed Procedure Planned Operative Procedure(s): ERCP Anesthesia History Anesthesia History - computational geneticist: Anesthesia History - computational geneticist Hx Hospitalization No 02/11/25 13:33 Any Problems With Anesthesia No 04/26/25 00:27 Cholinesterase deficiency No 04/26/25 00:27 You/Your Family Experience No 04/26/25 00:27 fever (hyperthermia) with Relationship Recent Exposure to Contagious No 04/26/25 00:27 Disease Does patient have nerve No 04/26/25 00:27 stimulator Patient instructed to have device shut off --Does patient have Pacemaker No 04/26/25 14:35 or ICD? When Was Last Pacemaker Check QUESTION #4 FULL TEXT: You/Your Family Experience fever (hyperthermia) with Anesthesia Last Oral Intake Last Oral intake: Last Oral Intake NPO since 00:00 04/26/25 14:35 Meds taken in AM with sips of No 04/26/25 14:35 water? Meds patient instructed to take am of surgery PONV PONV - computational geneticist: PONV - computational geneticist Female HX of Motion Sickness HX of N/V After Surgery Non-Smoker Duration of Surgery greater than 60 minutes Number of Risk Factors PONV Score Height & Weight Height & Weight: Anesthesia: Height & Weight Height 5 ft 10 in 04/26/25 15:18 Weight: 103.8 kg 04/26/25 15:18 Body Mass Index (BMI) 32.8 04/26/25 14:35 Respiratory Assessment Respiratory Assessment - computational geneticist: Respiratory Tract Infection Hx - computational geneticist Hx Respiratory Tract Infection No 04/26/25 00:27 STOP Sleep Apnea STOP Sleep Apnea - computational geneticist: STOP Sleep Apnea - computational geneticist Hx Hypertension No 04/26/25 00:21 Hx Sleep Apnea No 04/26/25 00:21 CPAP BIPAP Do you snore loudly (louder Yes 04/26/25 00:21 than talking or can be heard Do you often feel tired/ No 04/26/25 00:21 fatigued/ sleepy during daytime? Has anyone observed you stop No 04/26/25 00:21 breathing during sleep? STOP Results Negative 04/26/25 00:21 QUESTION #5 FULL TEXT : Do you snore loudly (louder than talking or can be heard through closed doors)? 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 Specify any problems Hx of Preganancy in last 3 N/A 04/26/25 00:21 Months Nurse Filling Out Transfusion EVIZZO 04/26/25 00:21 & Questions: Date: 04/26/25 04/26/25 00:21 Time: 00:39 04/26/25 00:21 Patient unable to answer at this time (ie. confused, unrespo /Reproduction History /Reproductive History - computational geneticist: /Reproductive Hx- computational geneticist Hx Now Gestational Age (in weeks): EDC: Hx Hx Para Hx Section SAB No 02/11/25 13:33 Active Medications Active Medications: Current Medications Generic Name Dose Route Start Last Admin Trade Name Freq PRN Reason Stop Dose Admin Enoxaparin Sodium 40 mg 04/26/25 10:00 04/26/25 11:58 Enoxaparin 40 Mg/0.4 Ml Syringe SC Not Given DAILY MARVIN Sodium Chloride 1,000 mls @ 150 mls/hr 04/26/25 00:26 04/26/25 14:45 IV 150 mls/hr .[id number] MARVIN Administration Sodium Chloride 250 mls @ 15 mls/hr 04/26/25 00:26 IV .[id number] PRN Saline Flush Sodium Chloride 250 mls @ 15 mls/hr 04/26/25 00:26 IV .[id number] PRN Additional IVPB Infusion Montelukast Sodium 10 mg 04/26/25 22:00 Montelukast 10 Mg Tablet PO QHS MARVIN Morphine Sulfate 4 mg 04/26/25 00:26 04/26/25 12:59 Morphine 4 Mg/Ml Syringe IV 4 mg Q2H PRN PRN Administration Pain Score 6-10 Ondansetron HCl 4 mg 04/26/25 00:26 Ondansetron 4 Mg/2 Ml Vial IV Q8H PRN PRN NAUSEA/VOMITING Oxycodone HCl 5 mg 04/26/25 08:00 Oxycodone 5 Mg Tablet PO Q6H PRN pain Pantoprazole Sodium 40 mg 04/26/25 10:00 04/26/25 10:29 Pantoprazole Sodium 40 Mg Tablet PO 40 mg DAILY MARVIN Administration Sodium Chloride 10 - 40 ml 04/26/25 00:26 04/26/25 13:00 0.9% Saline Lock 10 Ml Syringe IV 10 ml UD PRN Administration SALINE FLUSH Tamsulosin HCl 0.4 mg 04/26/25 10:00 04/26/25 10:29 Tamsulosin Hcl 0.4 Mg Capsule PO 0.4 mg DAILY MARVIN Administration PFSH Medical History Wears glasses Wears dentures Wears partial dentures Alcohol use Loss of consciousness Dietary restriction Gastric reflux Smoker Chronic cough Hyperlipemia Kidney disease Home Medications ?Medication ?Instructions ?Recorded ?Last Taken ?Type multivitamin with folic acid 400 1 tab PO DAILY 02/04/25 History mcg tablet (Thera) dutasteride 0.5 mg capsule 0.5 mg PO DAILY 01/31/25 Un known History montelukast 10 mg tablet 10 mg PO QHS allergies 01/3102/24/25 History simvastatin 40 mg tablet 40 mg PO QHS 01/31/25 Unknow n History omeprazole 40 mg capsule,delayed 40 mg PO QDAY #30 cap s 02/08/25 Unknown Rx release oxycodone 5 mg tablet 5 mg PO Q6H PRN pain 7 days #14 02/25/25 Unknown Rx tabs tamsulosin 0.4 mg capsule (Flomax) 0.4 mg PO DAILY #30 caps 02/27/25 Unknown Rx Allergy/AdvReac Type Severity Reaction Status Date / Time No Known Allergies Allergy Verified 04/25/25 21:09 Family History Mother Diabetes Brother Diabetes Colon cancer Surgical History Hx of laparoscopy Status post appendectomy Social History Smoking Status: Light Smoker (<10/day) quit status: not considering quitting Review of Systems (Anesthesia) ROS Narrative System reviewed and no additional complaints, except as documented.
[2025-04-26] MEDS: Lactated Ringers 1,000 ML 15 ML IV (15:34)
--- NOTE | 2025-04-26 17:00 | RAD_ITS ---
PROCEDURE: ERCP BILIARY/PANCREAS 04/26/2025 REASON FOR EXAM: ERCP TECHNIQUE: Fluoroscopic images for ERCP was performed. COMPARISON: 04/25/2025 ultrasound. FINDINGS: Contrast fills the biliary tree. See procedure report for full details. RAD/ERCP Biliary/Pancreas IMPRESSION: As above. Reading Location: [place] [address]
[2025-04-26] MEDS: Sugammadex Sodium 200 MG/2 ML VIAL IV (17:29)
--- NOTE | 2025-04-26 18:21 | OP.ERCP_ITS ---
Patient Name: Elvis Cullen Procedure Date: 04/26/2025 4:09 PM Date of : 1950 Age: 74 Procedure: ERCP Indications: Abdominal pain of suspected biliary origin, Abdominal pain of suspected pancreatic origin, Acute pancreatitis Providers: Curtis Villatoro DO Medicines: General Anesthesia Patient Profile: This is a 74 year old male. This is a 74 year old male. Refer to note in patient chart for documentation of history and physical. Patient has symptoms of acute heartburn and acute jaundice. This patient has no history of previous ERCP. Complications: No immediate complications. Procedure: Pre-Anesthesia Assessment: - Prior to the procedure, a History and Physical was performed, and patient medications and allergies were reviewed. The patient is competent. The risks and benefits of the procedure and the sedation options and risks were discussed with the patient. All questions were answered and informed consent was obtained. Patient identification and proposed procedure were verified by the physician in the pre-procedure area. Mental Status Examination: alert and oriented. Airway Examination: normal oropharyngeal airway and neck mobility. Respiratory Examination: clear to auscultation. CV Examination: normal. Prophylactic Antibiotics: The patient does not require prophylactic antibiotics. Prior Anticoagulants: The patient has taken no anticoagulant or antiplatelet agents except for NSAID medication. ASA Grade Assessment: II - A patient with mild systemic disease. After reviewing the risks and benefits, the patient was deemed in satisfactory condition to undergo the procedure. The anesthesia plan was to use general anesthesia. Immediately prior to administration of medications, the patient was re-assessed for adequacy to receive sedatives. The heart rate, respiratory rate, oxygen saturations, blood pressure, adequacy of pulmonary ventilation, and response to care were monitored throughout the procedure. The physical status of the patient was re-assessed after the procedure. After obtaining informed consent, the scope was passed under direct vision. Throughout the procedure, the patient's blood pressure, pulse, and oxygen saturations were monitored continuously. The Duodenoscope was introduced through the mouth, and advanced to the duodenum and used to inject contrast into the bile duct. The ERCP was accomplished without difficulty. The patient tolerated the procedure well. 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 The esophagus was successfully intubated under direct vision. The scope was advanced to a normal major papilla in the descending duodenum without detailed examination of the pharynx, larynx and associated structures, and upper GI tract. The upper GI tract was grossly normal. The bile duct was deeply cannulated. Contrast was injected. I personally interpreted the bile duct images. There was brisk flow of contrast through the ducts. Image quality was excellent. Contrast extended to the biliary pancreatic junction. Opacification of the entire opacified area and entire biliary tree was successful. The maximum diameter of the ducts was 10 mm. The entire opacified area and entire biliary tree contained two stones, the largest of which was 6 mm in diameter. The entire opacified area was moderately dilated, with a stone causing an obstruction. The largest diameter was 14 mm. A long 0.025 inch Jagwire was passed into the biliary tree. A 5 mm biliary sphincterotomy was made with a traction (standard) sphincterotome using ERBE electrocautery. There was no post-sphincterotomy bleeding. The biliary tree was swept with a 12 mm balloon starting at the bifurcation, left intrahepatic duct(s) and right intrahepatic duct(s). All stones were removed. One 10 Fr by 7 cm temporary stent was placed 5 cm into the common bile duct. Bile flowed through the stent. The stent was in good position. Impression: - The biliary system were moderately dilated, with a stone causing an obstruction. - Choledocholithiasis was found. Complete removal was accomplished by biliary sphincterotomy and balloon extraction. - A biliary sphincterotomy was performed. - The biliary tree was swept. - One temporary stent was placed into the common bile duct. Procedure Code(s): --- Professional --- 12651, Endoscopic retrograde cholangiopancreatography (ERCP); with placement of endoscopic stent into biliary or pancreatic duct, including pre- and post-dilation and guide wire passage, when performed, including sphincterotomy, when performed, each stent 21032, Endoscopic retrograde cholangiopancreatography (ERCP); with removal of calculi/debris from biliary/pancreatic duct(s) 70403, 26, Endoscopic catheterization of the biliary ductal system, radiological supervision and interpretation CPT copyright 2021 [employer]. All rights reserved. The codes documented in this report are preliminary and upon wood model maker review may be revised to meet current compliance requirements. Curtis Villatoro DO 04/26/2025 6:21:25 PM This report has been signed electronically. Number of Addenda: 0 Note Initiated On: 04/26/2025 4:09 PM
--- NOTE | 2025-04-26 18:21 | OP.CCLET_ITS ---
04/26/2025 Erwin Garcia [address] [place] [address] Re : ERCP procedure for Elvis Cazareser Dear Dr. Garcia This procedure was performed on Saturday, April 26, 2025. My impressions and recommendations are as follows: Impressions : - The biliary system were moderately dilated, with a stone causing an obstruction. - Choledocholithiasis was found. Complete removal was accomplished by biliary sphincterotomy and balloon extraction. - A biliary sphincterotomy was performed. - The biliary tree was swept. - One temporary stent was placed into the common bile duct. Recommendations : My findings are described in the full procedure note, which is enclosed. If I can be of further assistance, please feel free to contact me at . Sincerely, Curtis Villatoro, 04/26/2025 6:21:25 PM This report has been signed electronically.
[2025-04-26] MEDS: Montelukast 10 MG Tablet PO (22:50)
[2025-04-27] VITALS (7 sets, daily range): BP systolic 126–138; BP diastolic 59–72; PULSE 81–86; RESP 16–18; TEMP 36.7–37.2; O2SAT 86–94; BMI 32.8
[2025-04-27] MEDS: 0.9% Normal Saline (1000mL) 1,000 ML 150 ML IV ×2 (03:11→10:02)
[2025-04-27 06:17] LABS: ALB/GLOB Ratio 1.3 RATIO (0.9-2.4); AST(SGOT) 111 U/L (<=37); Alanine Aminotransfer ALT/SGPT 333 U/L (<=46); Alkaline Phosphatase 147 U/L (40-129); Anion Gap 8 (5-15); BUN 15 mg/dL (4-19); BUN/Creat Ratio 11.6 RATIO (10-20); Calcium,Total 7.7 mg/dL (7.6-11.0); Carbon Dioxide 21.8 mmol/L (21.0-32.0); Chloride 108 mmol/L (98-108); Creatinine, Serum 1.26 mg/dL (0.70-1.20); EST Glomerular Filtration Rate 61 (>60); Estimated Creatinine Clearance 63.95 ml/min (50-250); Globulin 2.3 g/dL (2.2-4.2); Glucose 117 mg/dL (70-99); Potassium 3.9 mmol/L (3.3-5.1); Protein, Total 5.4 g/dL (5.9-8.4); Sodium Level 137 mmol/L (133-145); Total Bilirubin 1.21 mg/dL (0.00-1.30)
--- NOTE | 2025-04-27 07:20 | PCM.PN.SRG ---
Subjective Subjective Patient reports he is comfortable. He was tolerating liquid diet last night before being made NPO. Objective Data Objective Data Vital Signs: Vital Signs Temp Pulse Resp BP Pulse Ox O2 Del Method O2 Flow Rate 98.1 F 81 16 126/65 H 94 Nasal Cannula 2 04/27/25 02:53 04/27/25 02:53 04/27/25 02:53 04/27/25 02:53 04/27/25 02:53 04/27/25 02:53 04/27/25 02:53 Oxygen Flow Rate (L/min) 2 Oxygen Delivery Method Nasal Cannula Weight: 228 lb 13.437 oz Body Mass Index (BMI) 32.8 Intake & Output: Intake and Output for Last 24 Hours 04/25/25 04/26/25 04/27/25 23:59 23:59 23:59 Intake Total 1000 / 1000 2670 / 2670 995 / 995 Balance 1000 / 1000 2670 / 2670 995 / 995 Lab / Micro Data 04/26/25 05:45 04/27/25 05:15 Labs: Laboratory Results - last 24 hr 04/27/25 05:15: Sodium 137, Potassium 3.9, Chloride 108, Carbon Dioxide 21.8, Anion Gap 8, BUN 15, Creatinine 1.26 H, Estim Creat Clear Calc 63.95, Est GFR (MDRD) Non-Af 61, BUN/Creatinine Ratio 11.6, Glucose 117 H, Calcium 7.7, Total Bilirubin 1.21, AST 111 H, ALT 333 H, Alkaline Phosphatase 147 H, Total Protein 5.4 L, Albumin 3.0 L, Globulin 2.3, Albumin/Globulin Ratio 1.3 Radiography Diagnostic Testing: Radiology Impression Endo Retro Cholangiopancreatogram 04/26/25 17:00 IMPRESSION: As above. Reading Location: [place] [address] Physical Exam Const oriented x3 and no apparent distress Resp normal respiratory effort GI soft to palpation and non-tender Assessment & Plan Assessment/Plan (1) Cholelithiasis: (2) Pancreatitis: PLAN: Plan Patient had gallstone pancreatitis. He seems to have no abdominal pain today. He had ERCP yesterday with stone removal and stent placement. Patient may advance diet as tolerated and be discharged today. Patient will follow-up with me to schedule short interval elective cholecystectomy. Rad Arnold MD Pager: [facility] [address] [place] [address], [address] [place] [address] Office:
--- NOTE | 2025-04-27 08:02 | PCM.PN.HOSP ---
Reason for Visit Reason for Visit: Diagnoses Calculus of gallbladder without cholecystitis without obstruction (04/26/25) Acute pancreatitis without necrosis or infection, unspecified (04/26/25) Unspecified jaundice (04/26/25) Elevation of levels of liver transaminase levels (04/26/25) Subjective Subjective Feeling well. Tolerating diet. Objective Data Objective Data Vital Signs: Vital Signs Temp Pulse Resp BP Pulse Ox O2 Del Method O2 Flow Rate 36.7 C 81 16 126/65 H 94 Nasal Cannula 2 04/27/25 02:53 04/27/25 02:53 04/27/25 02:53 04/27/25 02:53 04/27/25 02:53 04/27/25 02:53 04/27/25 02:53 Oxygen Flow Rate (L/min) 2 Oxygen Delivery Method Nasal Cannula Weight: 103.8 kg Body Mass Index (BMI) 32.8 Intake & Output: Intake and Output for Last 24 Hours 04/25/25 04/26/25 04/27/25 23:59 23:59 23:59 Intake Total 1000 / 1000 2670 / 2670 995 / 995 Balance 1000 / 1000 2670 / 2670 995 / 995 Lab / Micro Data 04/26/25 05:45 04/27/25 05:15 Labs: Laboratory Results - last 24 hr 04/27/25 05:15: Sodium 137, Potassium 3.9, Chloride 108, Carbon Dioxide 21.8, Anion Gap 8, BUN 15, Creatinine 1.26 H, Estim Creat Clear Calc 63.95, Est GFR (MDRD) Non-Af 61, BUN/Creatinine Ratio 11.6, Glucose 117 H, Calcium 7.7, Total Bilirubin 1.21, AST 111 H, ALT 333 H, Alkaline Phosphatase 147 H, Total Protein 5.4 L, Albumin 3.0 L, Globulin 2.3, Albumin/Globulin Ratio 1.3 Radiography Diagnostic Testing: Radiology Impression Endo Retro Cholangiopancreatogram 04/26/25 17:00 IMPRESSION: As above. Reading Location: [place] [address] Physical Exam Const alert and no apparent distress HEENT head/scalp atraumatic and moist oral mucous membranes GI normal to inspection, nondistended, normoactive bowel sounds, soft to palpation and non-tender Assessment & Plan Assessment/Plan (1) Pancreatitis: PLAN: concerning for gallstone induced pancreatitis. ERCP on 04/26: choledocholithiasis w complete removal, biliary sphincterotomy and baloon extraction. Biliary sphincterotomy. One stent placed. General surgery on consult, no acute surgical plans. Follow up as outpt for cholecystectomy. PLAN: Plan BPH: continue tamsulosin GERD: continue PPI. VTE prophylaxis: LMWH.
[2025-04-27] MEDS: Tamsulosin HCl 0.4 MG Capsule PO (10:02)
[2025-04-27] MEDS: Pantoprazole Sodium 40 MG Tablet PO (10:02)
--- NOTE | 2025-04-27 11:33 | DS.PCM_ITS ---
Providers Date of Admission: 04/26/25 Primary Care Physician: Dr. Erwin Garcia MD Consultations 04/26/25 00:26 Consult: Gastroenterology Routine Consulting Provider: [facility] Reason for Consult: Gallstone pancreatitis EMERGENT Consult: Yes Notified: Yes Date Notified: 04/26/25 Time Notified: 00:08 Method of Notification: ED Physician Initiated Consult: General Surgery Routine Consulting Provider: Rad Arnold Reason for Consult: Gallbladder disease EMERGENT Consult: Yes Notified: Yes Date Notified: 04/26/25 Time Notified: 00:08 Method of Notification: ED Physician Initiated Reason For Visit: GALLSTONES PANCREATITIS Diagnosis Discharge Diagnosis (1) Pancreatitis: Status: Acute Code(s): K85.90 - Acute pancreatitis without necrosis or infection, unspecified Plan: concerning for gallstone induced pancreatitis. ERCP on 04/26: choledocholithiasis w complete removal, biliary sphincterotomy and baloon extraction. Biliary sphincterotomy. One stent placed. General surgery on consult, no acute surgical plans. Follow up as outpt for cholecystectomy. Plan BPH: continue tamsulosin GERD: continue PPI. VTE prophylaxis: LMWH. Medications at Discharge Home Medications multivitamin with folic acid 400 mcg tablet (Thera) 1 tab PO DAILY 06/12/15 dutasteride 0.5 mg capsule 0.5 mg PO DAILY 01/31/25 montelukast 10 mg tablet 10 mg PO QHS allergies 01/31/25 simvastatin 40 mg tablet 40 mg PO QHS 01/31/25 omeprazole 40 mg capsule,delayed release 40 mg PO QDAY #30 caps 02/08/25 oxycodone 5 mg tablet 5 mg PO Q6H PRN pain 7 days #14 tabs 02/25/25 tamsulosin 0.4 mg capsule (Flomax) 0.4 mg PO DAILY #30 caps 02/27/25 Hospital Course Operations None Procedures - (ERCP) Summary of Care Provided Hospital Course: Patient presents with gallstone pancreatitis. Patient underwent ERCP on the that showed the biliary system was moderate dilated with a stone causing the obstruction. Choledocholithiasis was found with complete removal accomplished with biliary sphincterotomy and balloon extraction. Patient tolerated procedure well. Patient did have transaminitis and hyperbilirubinemia related with this. Those are both improved. Patient will follow-up with general surgery to have a cholecystectomy. Timing of which will be determined by surgery. Patient recent nephrectomy in the past. Weight / BMI Weight Weight: 103.8 kg Body Mass Index (BMI) 32.8 ABG / Lab / Microbiology Data 04/26/25 05:45 04/27/25 05:15 Laboratory: Laboratory Results - last 24 hr 04/27/25 05:15: Sodium 137, Potassium 3.9, Chloride 108, Carbon Dioxide 21.8, Anion Gap 8, BUN 15, Creatinine 1.26 H, Estim Creat Clear Calc 63.95, Est GFR (MDRD) Non-Af 61, BUN/Creatinine Ratio 11.6, Glucose 117 H, Calcium 7.7, Total Bilirubin 1.21, AST 111 H, ALT 333 H, Alkaline Phosphatase 147 H, Total Protein 5.4 L, Albumin 3.0 L, Globulin 2.3, Albumin/Globulin Ratio 1.3 Radiography Diagnostic Testing: Radiology Impression Endo Retro Cholangiopancreatogram 04/26/25 17:00 IMPRESSION: As above. Reading Location: [place] [address] D/C Instructions Discharge Diet: No restrictions DC O2, CPAP, BIPAP Needs Home O2 Discharge instructions: No Meaningful Use Info Meaningful Use Meaningful Use Diagnoses (Choose all that apply): None applicable Ischemic Stroke Statin Dosing Therapy Reference: STATIN DOSE THERAPY REFERENCE: * Patients > 75 years receive moderate or high dose statin therapy. * Patients 75 years or YOUNGER should receive HIGH intensity statin dose unless contraindicated. You will be required to document reason for non-treatment if statin daily dose does not meet guidelines. HIGH DOSE STATIN THERAPY DAILY Atorvastatin > than or = to 40 mg Rosuvastatin > than or = to 20 mg Amlodipine + Atorvastatin > than or = to 2.5/40 mg Ezetimibe + Simvastatin 10/80 mg Simvastatin 80mg Discharge Plan Admission Admit Date/Time: 04/26/25 00:06 Primary Reason for Your Visit: Gallstone pancreatitis Attending Provider: Nacho Garza Primary Care Provider: Erwin Garcia Consulting Providers: Rad Arnold; Jose Mora Instructions Additional Instructions / Restrictions: You had a stone in your bile duct causing pancreatitis and inflammation of your liver. Dr. Llanos was able to review that with the ERCP. You will need to have your gallbladder removed and you will need to follow-up with Dr. Arnold in the near future to have that arranged. If you have any worsening abdominal pain, notify your physician or return to the emergency room. Discharge Orders/Prescriptions Prescriptions: Continued omeprazole 40 mg capsule,delayed release(DR/EC) 40 mg PO QDAY Qty: 30 3RF Rx Instructions: swallow whole; do not crush, chew, dissolve, cut, break multivitamin with folic acid [Thera] 1 TABLET tablet 1 tab PO DAILY simvastatin 40 mg tablet 40 mg PO QHS montelukast 10 mg tablet 10 mg PO QHS dutasteride 0.5 mg capsule 0.5 mg PO DAILY oxycodone 5 mg tablet 5 mg PO Q6H PRN (Reason: pain) 7 Days Qty: 14 0RF tamsulosin [Flomax] 0.4 mg capsule 0.4 mg PO DAILY Qty: 30 1RF Referrals / Follow Up: Rad Arnold MD [Med Staff - Active Staff] - Within 2 Weeks Erwin Garcia MD [Primary Care Provider] - Within 2 Weeks Disposition Disposition (needs filled in before D/C Order can be placed): Home, Self Care Charges/Coding Visit Charges Inpatient E&M: 19879 Disch Hosp
--- NOTE | 2025-04-27 12:16 | CASEMGMT ---
Noted pt is currently on oxygen, discussed with pt nurse. She will complete an amb pox as pt has a dc order placed.
== END 2025-04-27 12:52 | disposition home or self-care (01) | DRG 444 ==
LOC: ED 23:59 → MS3 04-26 00:22
PROVIDERS: Internal Medicine Gastroenterology; Admitting Provider Family Medicine; Emergency Provider Emergency Medicine; PCP Internal Medicine
PROC: 0FC98ZZ Extirpation of Matter from Common Bile Duct, Via Natural or Artificial Opening Endoscopic (ICD-10-PCS; CPT 43260; principal; 2025-04-26 17:40)
DX: K80.71 Calculus of gallbladder and bile duct without cholecystitis with obstruction (principal); K85.10 Biliary acute pancreatitis without necrosis or infection; K75.89 Other specified inflammatory liver diseases; E78.5 Hyperlipidemia, unspecified; K21.9 Gastro-esophageal reflux disease without esophagitis; F17.210 Nicotine dependence, cigarettes, uncomplicated; N40.0 Benign prostatic hyperplasia without lower urinary tract symptoms; Z79.899 Other long term (current) drug therapy; Z90.5 Acquired absence of kidney
CPT/HCPCS: 36415; 74330; 76000; 76705; 80053; 83690; 85025; 93005; 99284; C2625; A4216; J2405

== ENCOUNTER 2025-04-27 20:26 | Emergency (ER) | payer MEDICARE, OTHER, SELFPAY ==
[2025-04-27] VITALS (7 sets, daily range): BP systolic 137–150; BP diastolic 68–84; PULSE 78–98; RESP 12–26; TEMP 36.9–37.1; O2SAT 92–97; BMI 34.3
--- NOTE | 2025-04-27 20:31 | EKG12_ITS ---
Test Reason : Blood Pressure : */* mmHG Vent. Rate : 86 BPM Atrial Rate : 86 BPM P-R Int : 134 ms QRS Dur : 86 ms QT Int : 322 ms P-R-T Axes : 36 18 60 degrees QTcB Int : 385 ms Normal sinus rhythm Low voltage QRS Cannot rule out Anterior infarct , age undetermined ? lead reversal Abnormal ECG Confirmed by Ace Braswell ([id number]), editor news LARY EDWARDS ([id number]) on 04/28/2025 10:18:27 AM Referred By: Brian Corrales Confirmed By: Ace Braswell
[2025-04-27 21:05] LABS: Absolute Lymphocyte Count 0.54 X10^3/uL (0.83-4.51); Absolute Neutrophil Count 10.1 X10^3/uL (2.0-7.7); Basophil# 0.02 X10^3/uL; Basophil% 0.2 % (0-1); Eosinophil# 0.11 X10^3/uL; Eosinophils% 0.9 % (0-5); Hematocrit 38.6 % (40-54); Hemoglobin 12.7 g/dL (13.0-16.5); Lymphocyte # 0.54 X10^3/ul (0.83-4.51); Lymphocyte % 4.5 % (19-41); Mean Corp Hgb Conc 32.9 g/dL (32-36); Mean Corpuscular Hgb 28.6 pg (27.0-32.0); Mean Corpuscular Volume 86.9 fL (80-94); Monocyte# 1.18 X10^3/uL; Monocyte% 9.8 % (0-10); NRBC Flagged by Analyzer 0 % (0-5); Neutrophil # 10.09 X10^3/uL (2.7-7.7); Neutrophil % 84.2 % (47-70); POSITIVE DIFFERENTIAL YES; Platelet Count 131 K/mm3 (150-450); RBC Distribution Width SD 44.2 fl (35.1-43.9); Red Blood Count 4.44 M/mm3 (4.6-6.2)
[2025-04-27 21:33] LABS: Anion Gap 9 (5-15); BUN 14 mg/dL (4-19); BUN/Creat Ratio 10.4 RATIO (10-20); Calcium,Total 8.3 mg/dL (7.6-11.0); Chloride 104 mmol/L (98-108); Creatinine, Serum 1.37 mg/dL (0.70-1.20); EST Glomerular Filtration Rate 55 (>60); Estimated Creatinine Clearance 60.15 ml/min (50-250); Glucose 206 mg/dL (70-99); Potassium 3.6 mmol/L (3.3-5.1); Sodium Level 136 mmol/L (133-145); Troponin T High Sensitivity 14 ng/L (<=22)
--- NOTE | 2025-04-27 22:21 | EDS_ITS ---
HPI History of Present Illness Chief Complaint: Shortness of Breath Narrative Narrative: 74-year-old male presents with his family because of shortness of breath and fever that he experienced this evening. 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 Hence he only has 1. Since then he has been having cough and shortness of breath. He is a smoker. He was admitted to the hospital on Friday because he had a gallstone stuck near the pancreas. This was 2 days ago. ERCP was performed by Dr. Villatoro yesterday. He was released from the hospital today. He states that this morning before he was released they are having problems getting his oxygen level up. The highest it went was 89% on room air. He denies history of COPD. He states he was released and this evening at around 5 or 6, approximately 4 to 5 hours ago, he had a fever as high as 101 ?F. He feels short of breath with a cough as well. However, when he here, he did not have a fever. He presents mainly because of the fever and the shortness of breath after being discharged from the hospital. [facility] Medical History Wears glasses Wears dentures Wears partial dentures Alcohol use Loss of consciousness Dietary restriction Gastric reflux Smoker Chronic cough Hyperlipemia Kidney disease Home Medications ?Medication ?Instructions ?Recorded ?Last Taken ?Type multivitamin with folic acid 400 1 tab PO DAILY 02/04/25 History mcg tablet (Thera) dutasteride 0.5 mg capsule 0.5 mg PO DAILY 01/31/25 Un known History montelukast 10 mg tablet 10 mg PO QHS allergies 01/3102/24/25 History simvastatin 40 mg tablet 40 mg PO QHS 01/31/25 Unknow n History omeprazole 40 mg capsule,delayed 40 mg PO QDAY #30 cap s 02/08/25 Unknown Rx release oxycodone 5 mg tablet 5 mg PO Q6H PRN pain 7 days #14 02/25/25 Unknown Rx tabs tamsulosin 0.4 mg capsule (Flomax) 0.4 mg PO DAILY #30 caps 02/27/25 Unknown Rx Allergy/AdvReac Type Severity Reaction Status Date / Time No Known Allergies Allergy Verified 04/27/25 20:27 Family History Mother Diabetes Brother Diabetes Colon cancer Surgical History Hx of laparoscopy Status post appendectomy Social History Smoking Status: Light Smoker (<10/day) quit status: not considering quitting ROS ROS ED ROS Narrative Review of systems positive for fever as high as 101 ?F, cough, positive shortness of breath. Positive chest tightness. Denies any leg swelling. No abdominal pain, nausea, or vomiting, no other symptoms. EXAM Physical Exam Narrative Exam Narrative: Afebrile. Vital signs noted. Nontoxic-appearing. Cardiovascular examination reveals a regular rate and rhythm. Respiratory examination shows no distress. He does have decreased breath sounds at the right base with occasional expiratory wheeze. Abdomen is soft, nontender, with positive bowel sounds. Neurological examination nonfocal, nonlateralizing. No pedal edema. Const Vital Signs: 04/27/25 20:27 04/27/25 20:30 04/27/25 22:32 Temperature 98.8 F 98.8 F Temperature Source Oral Oral Pulse Rate 98 98 78 Respiratory Rate 20 H 20 H 12 Respiratory Effort Respiratory Depth Respiratory Pattern Blood Pressure 150/68 H 150/68 H Blood Pressure Mean 95 95 Pulse Ox 94 94 Oxygen Delivery Method Room Air Room Air Oxygen Flow Rate (L/min) 04/27/25 23:05 04/27/25 23:05 04/27/25 23:05 Temperature 98.8 F Temperature Source Oral Pulse Rate 88 Respiratory Rate 26 H 18 Respiratory Effort Respiratory Depth Respiratory Pattern Blood Pressure 137/68 H Blood Pressure Mean 91 Pulse Ox 95 97 Oxygen Delivery Method Nasal Cannula Nasal Cannula Oxygen Flow Rate (L/min) 3 3 04/27/25 23:09 04/27/25 23:50 Temperature 98.4 F Temperature Source Pulse Rate 94 Respiratory Rate 18 Respiratory Effort Normal Non-Labored Respiratory Depth Normal Respiratory Pattern Normal Blood Pressure 140/84 H Blood Pressure Mean 102 Pulse Ox 94 Oxygen Delivery Method Room Air Oxygen Flow Rate (L/min) MDM MDM MDM Narrative Medical decision making narrative: Differential diagnosis includes but not limited to COPD exacerbation although he is undiagnosed versus pneumonia versus atelectasis. I have low suspicion for pulmonary embolism. Pulse ox is 94% on room air. Protocol labs were entered. I ordered a chest x-ray as well. EKG obtained and interpreted by myself independently as normal sinus rhythm at 86 bpm without ectopy or acute ST changes. No STEMI. Chest x-ray interpreted by myself independently shows mild pulmonary vascular congestion and bilateral pleural effusions. I reviewed the radiology report which confirms my independent interpretation. There is no pneumonia where I feel antibiotics are indicated. Additionally he is currently afebrile and he did not take any antipyretics. Review of his laboratory work shows slight elevation of his white count of 12.0 which I think is nonspecific, hemoglobin 12.7, platelet count slightly low at 131. When compared to prior labs he has had thrombocytopenia intermittently in the past. Review of his BMP shows BUN of 14 and creatinine 1.37 and review of his laboratory work shows chronic kidney disease as he only has 1 kidney. Glucose is elevated 206 but he has a normal anion gap of 9. Initial high-sensitivity troponin is 14 with 2-hour being 16 for an acceptable delta troponin. At this point in time, he states he feels improved after aerosolized treatment. He states he has an incentive spirometer and an inhaler at home. I feel he be discharged safely home as his fever was most likely from atelectasis. Smoking cessation was also discussed. He feels well and is motivated for discharge. As long as he is not requiring oxygen, I feel he can be discharged to follow-up. He was able to ambulate in the hallway with an acceptable pulse ox. Return instructions reviewed. I also did inform Dr. Villatoro that the patient had return to the emergency department and was discharged home. Disposition is discharged home in stable condition. History & Record Review Discussion w/independent historian: Patient and Family Lab Data Attestation: I reviewed the patient's lab results. Labs: Laboratory Results - last 24 hr 04/27/25 04/27/25 20:42 22:56 WBC 12.0 H RBC 4.44 L Hgb 12.7 L Hct 38.6 L MCV 86.9 MCH 28.6 MCHC 32.9 RDW Std Deviation 44.2 H RDW Coeff of Mildred 14.0 Plt Count 131 L MPV 11.0 Immature Gran % (Auto) 0.400 Neut % (Auto) 84.2 H Lymph % (Auto) 4.5 L [place] % (Auto) 9.8 Eos % (Auto) 0.9 Baso % (Auto) 0.2 Absolute Neuts (auto) 10.1 H Absolute Lymphs (auto) 0.54 L Nucleated RBC % 0 Sodium 136 Potassium 3.6 Chloride 104 Carbon Dioxide 23.0 Anion Gap 9 BUN 14 Creatinine 1.37 H Estim Creat Clear Calc 60.15 Est GFR (MDRD) Non-Af 55 L BUN/Creatinine Ratio 10.4 Glucose 206 H Calcium 8.3 Troponin T High Sens 14 Troponin T Hi Sens 2 Hr 16 Radiography Diagnostic Testing: Clinical Impression(s) from Imaging Studies Chest X-Ray 04/27/25 23:02 IMPRESSION: Small bilateral pleural effusions. Probable pulmonary vascular congestion. Reading Location: [place] [address] Discharge Plan Triage Chief Complaint: Shortness of Breath ED Provider: Brian Corrales Dx/Rx/DC Orders Clinical Impression: Atelectasis, Pleural effusion, bilateral, SOB (shortness of breath) Instructions: ED Atelectasis, ED Dyspnea Prescriptions: No Action omeprazole 40 mg capsule,delayed release(DR/EC) 40 mg PO QDAY Qty: 30 3RF Rx Instructions: swallow whole; do not crush, chew, dissolve, cut, break multivitamin with folic acid [Thera] 1 TABLET tablet 1 tab PO DAILY simvastatin 40 mg tablet 40 mg PO QHS montelukast 10 mg tablet 10 mg PO QHS dutasteride 0.5 mg capsule 0.5 mg PO DAILY oxycodone 5 mg tablet 5 mg PO Q6H PRN (Reason: pain) 7 Days Qty: 14 0RF tamsulosin [Flomax] 0.4 mg capsule 0.4 mg PO DAILY Qty: 30 1RF Primary Care Provider: Erwin Garcia Referrals: Erwin Garcia MD [Primary Care Provider] - 3-5 Days Activity Restrictions/Additional Instructions: Stop smoking. Use your incentive spirometer and your inhaler as previously directed. Return with increased difficulty breathing, new or worsening symptoms. Print Language: Israeli Disposition Disposition: Home, Self Care Discharge Date/Time: 04/27/25 23:52
--- OUTSIDE RECORDS SUMMARY | 2025-04-27 22:27 | XMS RPT_ITS | CCD ---
Author Organization [facility] Care Team Providers Care Log Peeler Name Role Phone Jose CLARKE, Erwin Butler Primary Care Provider Ms. Trell Goldman Attending Sam otero Pending, Provider Primary Care Unavailable Erwin Garcia MD Primary Care Provider Erwin Garcia MD Primary Care Provider Jose CLARKE, Erwin Butler Primary Care Provider [phone] Josefina REGULATION SUPERVISOR.GEOTECHNICAL FIELD TECHNICIAN, Khadijah M Unavailable Dr. Rashi Lee DO Emergency Provider Dr. Erwin Garcia MD Primary Care Provider Dr. Elana Richmond MD Attending Provider Dr. Rashi Lee DO Attending Provider Dr. Rashi Lee DO Referring Provider Dr. Erwin Garcia MD Referring Provider Dr. Migel Meléndez MD Attending Provider [phone] Los Romero MD Referring Provider Nick CLARKE, Dr. Los Pfeiffer Admit Provider [phone] Nick CLARKE, Dr. Los Pfeiffer Attending Provider [phone] Dr. Konstantin Bradford DO Emergency Provider Dr. Jose Mora MD Attending Provider Abby CLARKE, Dr. Garcia Admit Provider HARPSTER, ISAEL Referring Unavailable GARCIA, RIMA Primary Care Unavailable GARCIA, RIMA Attending Unavailable GARCIA, RIMA Primary Care Unavailable KHADIJAH RAMAN M Referring Unavailable GARCIA, RIMA Primary Care Unavailable GARCIA, RIMA Attending Unavailable GARCIA, RIMA Primary Care Unavailable HARPSTER, ISAEL Attending Unavailable HARPSTER, ISAEL Referring Unavailable GARCIA, RIMA Primary Care Unavailable Robotham, Elana Attending Unavailable Garcia, Erwin Referring Unavailable Garcia, Erwin Primary Care Unavailable Robotham, Elana Attending Unavailable Garcia, Erwin Primary Care Unavailable Garcia, Erwin Referring Unavailable Nick, Dany Referring Unavailable Migel Meléndez Attending Unavailable Garcia, Erwin Primary Care Unavailable Mora, Jose Attending Unavailable Gracia, Erwin Primary Care Unavailable Mora, Jose Admitting Unavailable Calabrnic, Rad Attending Unavailable YarielabrRad lucero Consulting Unavailable Garcia, Erwin Primary Care Unavailable Mora, Jose Consulting Unavailable Nacho Garza Consulting Unavailable Nick, Dany Referring Unavailable Nick, Dany Attending Unavailable Nick, Dany Admitting Unavailable Garcia, Erwin Primary Care Unavailable Rosa, Rashi Attending Unavailable Garcia, Erwin Primary Care Unavailable Nacho Garza Attending Unavailable Curtis Villatoro Attending Unavailable Rashi Lee Referring Unavailable Robotham, Elana Attending Unavailable Garcia, Erwin Primary Care Unavailable Robotham, Elana Attending Unavailable Garcia, Erwin Referring Unavailable Garcia, Erwin Primary Care Unavailable GARCIA, ERWIN TOI SANTIAGO Primary Care Unavailable JUSTINA KIM Attending Unavailable Abby CLARKE, Dr. Garcia Admit Provider Dr. Jose Mora MD Other Provider Dr. Rad Arnold MD Other Provider [phone] Dr. Nacho Garza DO Attending Provider Dr. Rad Arnold MD Attending Provider Dr. Nacho Garza DO Other Provider [phone] Curtis Villatoro DO Attending Provider Medications Current Medications Medication Drug Class(es) Dates Sig (Normalized) Sig (Original) acetaminophen 325 mg / HYDROcodone bitartrate 7.5 mg oral tablet (1 source) Opioid Agonist Start: 01-13-2024 End: 01-16-2024 take 1 tablet by mouth every six hours as needed for pain HYDROcodone-Acetam inophen (NORCO) 7.5-325 mg per tablet Indications: Acute pain of right knee Take 1 tablet by mouth every 6 hours as needed for pain for up to 3 days. 9 tablet 0 01/13/2024 01/16/2024 Active Comment on above: Take 1 tablet by alicia th every 6 hours as needed for pain for up to 3 days. dutasteride 0.5 mg oral capsule (20 sources) 5-alpha Reductase Inhibitor Start: 01-31-2025 take 1 capsule by mouth once daily Dutasteride 0.5 mg capsule Active 0.5 mg PO DAILY January 31, 2025 12:00am Start: 01-28-2022 End: 10-25-2024 take 1 capsule by mouth once daily Dutasteride 0.5 mg capsule Active 0.5 mg PO DAILY January 31, 2025 12:00am Comment on above: Take 1 capsule by mo [facility] once daily. ammonium lactate 120 mg/ml topical cream (2 sources) Start: ammonium lactate (LAC-HYDRIN) 12 % cream Apply to affected area once daily. Dry skin. 03/18/2025 Active montelukast 10 mg oral tablet (20 sources) Leukotriene Receptor Antagonist Start: take 1 tablet by mouth at bedtime Montelukast 10 mg tablet Active 10 mg PO AT BEDTIME January 31, 2025 12:00am Start: 01-21-2022 End: 07-08-2024 take 1 tablet by mouth at bedtime Montelukast 10 mg tablet Active 10 mg PO AT BEDTIME January 31, 2025 12:00am Comment on above: Take 1 tablet by alicia daily at bedtime. For allergies. multivit with min-folic acid 0.4 mg tablet (4 sources) multivit with mi n-folic acid 0.4 mg tablet once every 24 hours. Active multivit with mi n-folic acid 0.4 mg tablet once every 24 hours. 0 Active MULTIVITAMIN TAB (20 sources) Start: 03-17-2008 MULTIVITAMIN T AB Take one(1) tablet daily. 0 03/17/2008 Active Comment on above: Take one(1) tablet d aily. Multivitamin With Folic Acid (Thera) 1 TABLET tablet (5 sources) Start: 06-12-2015 take 1 tablet by [...] omeprazole 40 mg delayed release oral capsule (9 sources) Proton Pump Inhibitor Start: 01-31-2025 End: 02-08-2025 take 1 capsule by mouth once daily Omeprazole 40 mg capsule,delayed release(DR/EC) Active 40 mg PO daily February 08, 2025 12:00am swallow whole; do not crush, chew, dissolve, cut, break oxyCODONE hydrochloride 5 mg oral tablet (3 sources) Opioid Agonist Start: 02-25-2025 take 1 tablet by mouth every six hours as needed for pain Oxycodone 5 mg tablet Active 5 mg PO EVERY 6 HOURS as needed for pain 14 February 25, 2025 polyethylene glycol 3350 097024 mg / potassium chloride 2980 mg / sodium bicarbonate 6720 mg / sodium chloride 5840 mg / sodium sulfate 07242 mg powder for oral solution (1 source) Osmotic Laxative Start: 03-13-2023 End: 03-13-2023 peg 3350-electrolytes (COLYTE) 240-22.72-6.72 -5.84 gram solution Indications: Special screening for malignant neoplasms, colon Take 4,000 mL by mouth one time only for 1 dose. 4000 mL 0 03/13/2023 03/13/2023 Active Comment on above: Take 4,000 mL by alicia one time only for 1 dose. prochlorperazine [...] End: 03-02-2025 take 1 tablet by mouth at bedtime Simvastatin 40 mg tablet Active 40 mg PO AT BEDTIME January 31, 2025 12:00am Comment on above: Take 1 tablet by alicia th daily at bedtime. sucralfate 1000 mg oral tablet (5 sources) Aluminum Complex Start: 02-14-2025 take 1 tablet by mouth twice daily before mealtime sucralfate (CARAFATE) 1 gram tablet Take 1 g by mouth two times a day before meals. 02/14/2025 Active Start: 02-14-2025 End: 04-25-2025 take 1 tablet by mouth once at bedtime Sucralfate 1 gram tablet Discontinued 1 g PO before meals and at bedtime February 14, 2025 12:00am April 25, 2025 9:37pm Take an hour before meals and at bedtime tamsulosin hydrochloride 0.4 mg oral capsule (5 sources) alpha-Adrenergic Ana Start: 02-27-2025 take 1 capsule by mouth once daily Tamsulosin (Flomax) 0.4 mg capsule Active 0.4 mg PO DAILY February 27, 2025 12:00am Completed/Discontinued Medications Medication Drug Class(es) Dates Sig (Normalized) Sig (Original) aspirin 81 mg chewable tablet (6 sources) Platelet Aggregation Inhibitor, Nonsteroidal Anti-inflammatory Drug Start: 04-23-2025 End: 04-23-2025 take 324 mg by mouth once 324 mg, oral, Once, On 04/23/25 at 2220, For 1 dose Start: 06-12-2015 End: 01-31-2025 take 1 tablet by mouth once daily Aspirin 81 MG tablet Discontinued 81 mg PO DAILY@0800 June 12, 2015 12:00am January 31, 2025 11:08am ciprofloxacin 500 mg oral tablet (7 sources) Quinolone Antimicrobial Start: 02-11-2025 End: 02-25-2025 [...] Comment on above: Take 1 capsule by mo [facility] two times a day as needed [...] Comment on above: Take 1 tablet by [facility] every 8 hours as needed for pain [...] pain] Onset: 02-11-2025 Episodic Biliary tract disease (20 sources) Gallstone; Translations: [Calculus of gallbladder without [...] Headache; including migraine; Translations: [Headache, unspecified] Onset: 11-05-2022 Hyperplasia of prostate (20 sources) Benign prostatic hypertrophy with outflow obstruction; Translations: [Benign prostatic hyperplasia with lower urinary tract symptoms] Onset: 08-28-2021 Chronic Immunizations and screening for infectious disease (2 sources) Contact with or exposure to other viral diseases; Translations: [Exposure to COVID-19 virus] Episodic Malaise and fatigue (1 source) Other malaise; Translations: [Other malaise] Onset: 11-05-2022 Episodic Nephritis; nephrosis; renal sclerosis (11 sources) Atrophy of kidney; 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)] Onset: 02-11-2025 01-31-2025 Chronic Comment on above: right kidney- chroni c w hydronephrosis right kidney- chroni c w severe hydronephrosis Other circulatory disease (1 source) Respiratory symptom; Translations: [Other specified symptoms and signs involving the circulatory and respiratory systems] Episodic Other diseases of kidney and ureters (4 sources) Acquired renal cystic disease; 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 of kidney, acquired] 01-31-2025 Episodic Other diseases of kidney and ureters (4 sources) Hydronephrosis; Translations: [Unspecified hydronephrosis] 01-31-2025 Episodic Other diseases of kidney and ureters (1 source) Other hydronephrosis; Translations: [Other hydronephrosis] Onset: 03-15-2025 Episodic Other gastrointestinal disorders (10 sources) Abdominal bloating; Translations: [Abdominal distension (gaseous)] 01-31-2025 Episodic Other gastrointestinal disorders (1 source) Abdominal distension (gaseous); Translations: [Abdominal distension (gaseous)] Onset: 02-11-2025 Episodic Other injuries and conditions due to external causes (3 sources) Injury of right knee; Translations: [Unspecified injury of right lower leg, initial encounter] 01-01-2024 Episodic Other liver diseases (4 sources) Enzyme level - finding; Translations: [Elevated transaminase measurement] 04-25-2025 Episodic Other liver diseases (4 sources) Jaundice; Translations: [Unspecified jaundice] 04-25-2025 Episodic Other liver diseases (1 source) Unspecified jaundice; Translations: [Unspecified jaundice] Onset: 04-26-2025 Episodic Other lower respiratory disease (1 source) [...] upper respiratory infection, unspecified] Onset: 11-05-2022 Episodic Pancreatic disorders (not diabetes) (5 sources) Pancreatitis; Translations: [Acute pancreatitis without necrosis or infection, unspecified] Onset: 04-26-2025 04-25-2025 Episodic Residual codes; unclassified (4 sources) Tobacco [...] [Obesity, Class I, BMI 30-34.9] Onset: 08-03-2018 Unclassified (1 source) Elevation of levels of liver transaminase levels; Translations: [Elevation of levels of liver transaminase levels] Onset: 04-26-2025 Urinary tract infections (4 sources) Acute urinary tract infection; Translations: [Urinary [...] 07-30-2017 Chronic Genitourinary symptoms and ill-defined conditions (12 sources) Microscopic hematuria; Translations: [Other microscopic hematuria] Onset: 8 Resolved: 6 07-18-2016 Episodic Other and unspecified benign neoplasm (20 sources) Benign neoplasm of colon; Translations: [Benign neoplasm of colon, unspecified] Onset: 8 Resolved: 5 03-24-2009 Episodic Other diseases of kidney and ureters (20 sources) Hydroureteronephrosis ; Translations: [Unspecified hydronephrosis] Onset: 3 Resolved: 5 05-31-2023 Episodic Other diseases of kidney and ureters (1 source) Other obstructive and reflux uropathy; Translations: [BPH with obstruction/lower urinary tract symptoms] Onset: 1 Episodic Other nutritional; endocrine; and metabolic disorders (12 sources) Overweight; Translations: [Overweight] Onset: 8 Resolved: 5 09-20-2015 Episodic Other screening for suspected conditions (not mental disorders or infectious disease) (20 sources) Patient encounter status; Translations: [Encounter for screening for malignant neoplasm of colon] Onset: 3 Resolved: 5 Episodic Residual codes; unclassified (1 source) Tobacco use; Translations: [Tobacco use current] Onset: 4 Episodic Results Test Name Value Interpretation Reference Range Facility Anion gap in Serum or Plasma Ordered By: Nacho Garza on 04-27-2025 Anion gap [Moles/Vol] 8 mmol/L 03-31 [facility] BUN/creatinine ratioOrdered By: Nacho Garza on 04-27-2025 Urea nitrogen/Creatinine [Mass ratio] 11.6 mg/mg 09-05 [facility] Bilirubin, totalOrdered By: Nacho Garza on 04-27-2025 Bilirubin [Mass/Vol] 1.21 mg/dL 0.00-1.30 [facility] Carbon dioxide, total [Moles /volume] in Central venous bloodOrdered By: Nacho Garza on 04-27-2025 CO2 [Moles/Vol] 21.8 mmol/L 21.0-32.0 [facility] Chloride assayOrdered By: Nathaniel Garza on 04-27-2025 Chloride [Moles/Vol] 108 mmol/L 98-108 [facility] Glomerular filtration rate ( GFR) estimation/1.73 sq m using serum, plasma, or whole bOrdered By: Nacho Garza on 04-27-2025 GFR/1.73 sq M.predicted among non-blacks MDRD (S/P/Bld) [Vol rate/Area] 61 mL/min/{1.73_m2} >60 [facility] Comment on above: mL/min/1.73m2 CKD-EP I Creatinine Equation (2020) Laboratory - Chemistry and C hemistry - challengeOrdered By: Nacho Garza on 04-27-2025 AST [Catalytic activity/Vol] 111 U/L High <38 [facility] Potassium measurement (mass/ volume)Ordered By: Nacho Garza on 04-27-2025 Potassium (Unsp spec) [Mass/Vol] 3.9 mmol/L 3.3-5.1 [facility] Serum creatinine measurement (mass/volume)Ordered By: Nacho Garza on 04-27-2025 Creatinine [Mass/Vol] 1.26 mg/dL High 0.70-1.20 [facility] Serum globulin measurementOr dered By: Nacho Garza on 04-27-2025 Globulin (S) [Mass/Vol] 2.3 g/dL 2.2-4.2 [facility] Serum glucose measurement (m ass/volume)Ordered By: Nacho Garza on 04-27-2025 Glucose [Mass/Vol] 117 mg/dL High 70-99 [facility] Serum or plasma alanine cervantes otransferase (ALT) measurementOrdered By: Nacho Garza on 04-27-2025 ALT [Catalytic activity/Vol] 333 U/L High <47 [facility] Serum or plasma albumin rayshawn urement (mass/volume)Ordered By: Nacho Garza on 04-27-2025 Albumin [Mass/Vol] 3.0 g/dL Low 3.4-4.8 [facility] Serum or plasma albumin/glob ulin mass ratioOrdered By: Nacho Garza on 04-27-2025 Albumin/Globulin [Mass ratio] 1.3 {ratio} 0.9-2.4 [facility] Serum or plasma alkaline luc sphatase measurementOrdered By: Nacho Garza on 04-27-2025 ALP [Catalytic activity/Vol] 147 U/L High 40-129 [facility] Serum or plasma calcium rayshawn urement (mass/volume)Ordered By: Nacho Garza on 04-27-2025 Calcium [Mass/Vol] 7.7 mg/dL 7.6-11.0 [facility] Serum or plasma urea nitroge n measurement (mass/volume)Ordered By: Nacho Garza on 04-27-2025 Urea nitrogen [Mass/Vol] 15 mg/dL 4-19 [facility] Sodium levelOrdered By: Nacho Garza on 04-27-2025 Sodium [Moles/Vol] 137 mmol/L 133-145 [facility] Total proteinOrdered By: Rakel Garza on 04-27-2025 Protein [Mass/Vol] 5.4 g/dL Low 5.9-8.4 [facility] 12 Lead EKGon 04-26-2025 12 Lead EKG [facility] Cardiovascular Services [address] [place] [address] 12 Lead EKG 04/26/25 0533 MR#: [id number] Acct: [id number] Name: HOLLIE CULLEN Rep #: [id number] : 1950 74 From: Ace Braswell MD Attending Dr: Dr. Nacho Garza, DO Status: ADM IN Ordering Dr: José Michael MD Date: 04/26/25 Location: [facility] Sex: M C Admitted: 04/26/25 Test Reason : PRE-OP Blood Pressure : */* mmHG Vent. Rate : 74 BPM Atrial Rate : 74 BPM P-R Int : 156 ms QRS Dur : 86 ms QT Int : 358 ms P-R-T Axes : 68 4 59 degrees QTcB Int : 397 ms Normal sinus rhythm Low voltage QRS Borderline ECG When compared with ECG of 15-Feb-2025 08:56, Borderline criteria for Inferior infarct are no longer Present Confirmed by Ace Braswell ([id number]), state editor LUIZ SEGURA ([id number]) on 04/26/2025 11:09:19 AM Referred By: EVI Confirmed By: Ace Braswell 04/26/251108 Date Ace Braswell MD CC: Dr. José Michael MD; Dr. Nacho Garza DO; Dr. Erwin Garcia MD Signed Normal [facility] Absolute lymphocyte countOrd ered By: Jose Mora on 04-26-2025 Lymphocytes Auto (Unsp spec) [#/Vol] 0.72 10*3/uL Low 0.83-4.51 [facility] Absolute neutrophil countOrd ered By: Jose Mora on 04-26-2025 Neutrophils (Bld) [#/Vol] 8.3 10*3/uL High 2.0-7.7 [facility] Automated lymphocyte count a s percentage of total leukocytesOrdered By: Jose Mora on 04-26-2025 Lymphocytes/100 WBC Auto (Unsp spec) 7.5 % Low 19-41 [facility] Basophil percentageOrdered B y: Jose Mora on 04-26-2025 Basophils/100 WBC (Bld) 0.2 % 0-1 [facility] CBC W/Diff, Automatedon 04-17 Absolute Lymph 0.72 X10 3/uL Low 0.83-4.51 [facility] Comment on above: Performed By: #### L 100.0100 #### [facility] [address] [place], [address] Absolute Neut 8.3 X10 3/uL High 2.0-7.7 [facility] Comment on above: Performed By: #### L 100.0100 #### [facility] [address] [place], [address] Basophils/100 WBC (Bld) 0.2 % Normal 0-1 [facility] Comment on above: Performed By: #### L 100.0100 #### [facility] [address] [place], [address] Eosinophils/100 WBC (Bld) 0.5 % Normal 0-5 [facility] Comment on above: Performed By: #### L 100.0100 #### [facility] [address] [place], [address] Erythrocyte distribution width (RBC) [Ratio] 14.0 % Normal 11.6-14.6 [facility] Comment on above: Performed By: #### L 100.0100 #### [facility] [address] [place], [address] Hematocrit (Bld) [Volume fraction] 41.8 % Normal 40-54 [facility] Comment on above: Performed By: #### L 100.0100 #### [facility], [address] Hemoglobin (Bld) [Mass/Vol] 13.8 g/dL Normal 13.0-16.5 [facility] Comment on above: Performed By: #### L 100.0100 #### [facility] [address] [place], [address] IG% 0.300 Normal 0.0-0.9 [facility] Comment on above: Result Comment: IG% - Immature Granulocytes (promyelocytes, myelocytes and metamyelocytes) > 1% indicates that a LEFT SHIFT is Present. Performed By: #### L 100.0100 #### [facility] [address] [place], [address] Lymphocytes/100 WBC (Bld) 7.5 % Low 19-41 [facility] Comment on above: Performed By: #### L 100.0100 #### [facility] [address] [place], [address] MCH (RBC) [Entitic mass] 28.6 pg Normal 27.0-32.0 [facility] Comment on above: Performed By: #### L 100.0100 #### [facility] [address] [place], [address] MCHC (RBC) [Mass/Vol] 33.0 g/dL Normal 32-36 [facility] Comment on above: Performed By: #### L 100.0100 #### [facility] [address] [place], [address] MCV (RBC) [Entitic vol] 86.5 fL Normal 80-94 [facility] Comment on above: Performed By: #### L 100.0100 #### [facility] [address] [place], [address] Monocytes/100 WBC (Bld) 5.2 % Normal 0-10 [facility] Comment on above: Performed By: #### L 100.0100 #### [facility] [address] [place], [address] Neutrophils/100 WBC (Bld) 86.3 % High 47-70 [facility] Comment on above: Performed By: #### L 100.0100 #### [facility] [address] [place], [address] Nucleated RBC (Bld) [#/Vol] 0 10*3/uL Normal 0-5 [facility] Comment on above: Performed By: #### L 100.0100 #### [facility] [address] [place], [address] Platelet mean volume (Bld) [Entitic vol] 11.1 fL Normal 6.2-12.0 [facility] Comment on above: Performed By: #### L 100.0100 #### [facility] [address] [place], [address] Platelets (Bld) [#/Vol] 155 10*3/uL Normal 150-450 [facility] Comment on above: Performed By: #### L 100.0100 #### [facility] [address] [place], [address] RBC (Bld) [#/Vol] 4.83 10*6/uL Normal 4.6-6.2 [facility] Comment on above: Performed By: #### L 100.0100 #### [facility] [address] [place], [address] RDW SD 45.0 fl High 35.1-43.9 [facility] Comment on above: Performed By: #### L 100.0100 #### [facility] [address] [place], [address] WBC (Bld) [#/Vol] 9.7 10*3/uL Normal 4.4-11.0 [facility] Comment on above: Performed By: #### L 100.0100 #### [facility] [address] [place], [address] Comprehensive Metabolic Prof [facility] 04-26-2025 Albumin [Mass/Vol] 3.6 g/dL Normal 3.4-4.8 [facility] Comment on above: Performed By: #### L 100.0100, L500.2500 #### [facility] [address] [place], [address] Albumin/Globulin [Mass ratio] 1.5 {ratio} Normal 0.9-2.4 [facility] Comment on above: Performed By: #### L 100.0100, L500.2500 #### [facility] [address] [place], [address] ALK PHOS 189 U/L High 40-129 [facility] Comment on above: Performed By: #### L 100.0100, L500.2500 #### [facility] [address] [place], [address] ALT [Catalytic activity/Vol] 605 U/L High <=46 [facility] Comment on above: Performed By: #### L 100.0100, L500.2500 #### [facility] [address] [place], [address] AST [Catalytic activity/Vol] 325 U/L High <=37 [facility] Comment on above: Result Comment: Hemo lysis present, Results??could be affected. ?? Performed By: #### L 100.0100, L500.2500 #### [facility] [address] [place], [address] Bilirubin [Mass/Vol] 3.79 mg/dL High 0.00-1.30 [facility] Comment on above: Performed By: #### L 100.0100, L500.2500 #### [facility] [address] [place], [address] BUN/CRE 10.4 RATIO Normal 10-20 [facility] Comment on above: Performed By: #### L 100.0100, L500.2500 #### [facility] [address] [place], [address] Calcium [Mass/Vol] 8.4 mg/dL Normal 7.6-11.0 [facility] Comment on above: Performed By: #### L 100.0100, L500.2500 #### [facility] [address] [place], [address] Chloride [Moles/Vol] 107 mmol/L Normal 98-108 [facility] Comment on above: Performed By: #### L 100.0100, L500.2500 #### [facility] [address] [place], [address] CO2 [Moles/Vol] 22.5 mmol/L Normal 21.0-32.0 [facility] Comment on above: Performed By: #### L 100.0100, L500.2500 #### [facility] [address] [place], [address] Creatinine [Mass/Vol] 1.52 mg/dL High 0.70-1.20 [facility] Comment on above: Performed By: #### L 100.0100, L500.2500 #### [facility] [address] [place], [address] ECRCL 53.01 ml/min Normal 50-250 [facility] Comment on above: Performed By: #### L 100.0100, L500.2500 #### [facility] [address] [place], [address] GAP 10 Normal 5-15 [facility] Comment on above: Performed By: #### L 100.0100, L500.2500 #### [facility] [address] [place], [address] GFR/1.73 sq M.predicted among non-blacks MDRD (S/P/Bld) [Vol rate/Area] 48 mL/min/{1.73_m2} Low >60 [facility] Comment on above: Result Comment: mL/m in/1.73m2 CKD-EPI Creatinine Equation (2020) Performed By: #### L 100.0100, L500.2500 #### [facility] [address] [place], [address] Globulin (S) [Mass/Vol] 2.4 g/dL Normal 2.2-4.2 [facility] Comment on above: Performed By: #### L 100.0100, L500.2500 #### [facility] [address] [place], [address] Glucose [Mass/Vol] 124 mg/dL High 70-99 [facility] Comment on above: Performed By: #### L 100.0100, L500.2500 #### [facility] [address] [place], [address] Potassium [Moles/Vol] 4.6 mmol/L Normal 3.3-5.1 [facility] Comment on above: Result Comment: Hemo lysis present, Results??could be affected. ?? Performed By: #### L 100.0100, L500.2500 #### [facility] [address] [place], [address] Sodium [Moles/Vol] 140 mmol/L Normal 133-145 [facility] Comment on above: Performed By: #### L 100.0100, L500.2500 #### [facility] [address] [place], [address] T PROT 6.0 g/dL Normal 5.9-8.4 [facility] Comment on above: Performed By: #### L 100.0100, L500.2500 #### [facility] [address] [place], [address] Urea nitrogen [Mass/Vol] 16 mg/dL Normal 4-19 [facility] Comment on above: Performed By: #### L 100.0100, L500.2500 #### [facility] [address] [place], [address] Consultation - Surgicalon Consultation - Surgical [facility] Medical Records Department [address] [place] [address] Consultation - Surgical 04/26/25 0707 MR#: [id number] Acct: [id number] Name: HOLLIE CULLEN Rep #: [id number] : 1950 74 From: Rad Arnold MD PCP: Dr. Erwin Garcia MD Status:ADM IN [id number] Assessment Plan Assessment/Plan (1) Jaundice: (2) Cholelithiasis: PLAN: Plan The patient has gallstone pancreatitis. He had elevation of his lipase as well as LFTs. He has no signs of acute cholecystitis on ultrasound. He does have cholelithiasis. Recommend GI consult for ERCP. I will be involved after ERCP to discuss and plan laparoscopic cholecystectomy. Rad Arnold MD Pager: [facility] [address] [place] [address], [address] [place] [address] Office: HPI Consult Data Date of Consult: 04/26/25 HPI Narrative HPI Narrative: HOLLIE CULLEN, is a 74 M who presents with abdominal pain. Patient reports abdominal pain lower in his abdomen but he says whenever a hiccups or burps that radiates upward. He also reports that he was having some nausea and vomiting before admission. The patient was seen back in January for acute cholecystitis but surgery was deferred. [facility] Medical History Wears glasses Wears dentures Wears [...] #30 caps 02/08/25 Un known Rx release oxycodone 5 mg tablet 5 mg PO Q6H PRN pain 7 days #14 Unknown Rx tabs tamsulosin 0.4 mg capsule (Flomax) 0.4 mg PO DAILY #30 caps 5 Unknown Rx Allergy/AdvReac Type Severity Reaction Status Date / Time No Known Allergies Allergy Verified 04/25/25 21:09 Family History Mother Diabetes Brother Diabetes Colon cancer Surgical History Hx of laparoscopy Status post appendectomy Social History Smoking Status: Light Smoker (<10/day) quit status: not considering quitting ROS Constitutional Constitutional: Denies anorexia, chills, fatigue or fever(s) Eyes Eyes: Denies blurry vision ENT HEENT: Denies abnormal hearing Respiratory/Chest Respiratory/Chest: Denies cough or dyspnea Gastrointestinal Gastrointestinal: Reports abdominal pain, nausea and vomiting; Denies constipation Genitourinary Genitourinary: Denies change in urinary stream or difficulty urinating Musculoskeletal Musculoskeletal: Denies abnormal gait Integumentary Integumentary: Denies jaundice or new lesions Neurologic Neurologic: Denies abnormal gait Physical Exam Const alert and oriented x3 HEENT normocephalic Eyes PERRL Resp normal respiratory effort Cardio Rate: regular rate Rhythm: regular rhythm GI soft to palpation Palpation: tender Lab / Micro Data 04/26/25 05:45 04/26/25 05:45 Labs: Laboratory Results - last 24 hr 04/25/25 21:16: WBC 10.9, RBC 5.66, Hgb 15.8, Hct 47.8, MCV 84.5, MCH 27.9, MCHC 33.1, RDW Std Deviation 42.5, RDW Coeff of Mildred 13.9, Plt Count 197, MPV 11.1, Immature Gran % (Auto) 0.400, Neut % (Auto) 76.3 H, Lymph % (Auto) 10.5 L, Webster % (Auto) 11.7 H, Eos % (Auto) 0.7, Baso % (Auto) 0.4, A bsolute Neuts (auto) 8.3 H, Absolute Lymphs (auto) 1.15, Nucleated RBC % 0, Sodium 140, Potassium 3.9, Chloride 104, Carbon Dioxide 22.9, Anion Gap 13, BUN 13, Creatinine 1.49 H, Estim Creat Clear Calc 53.81, Est GFR (MDRD) Non-Af 50 L, BUN/Creatinine Ratio 8.7 L, Glucose 162 H, Calcium 9.7, T otal Bilirubin 5.33 H, AST 486 H, ALT 835 H, Alkaline Phosphatase 228 H, Total Protein 7.4, Albumin 4.3, Globulin 3.1, Albumin/Globulin Ratio 1.4, Lipase > 3000 H 04/26/25 05:45: WBC 9.7, RBC 4.83, Hgb 13.8, Hct 41.8, MCV 86.5, MCH 28.6, MCHC 33.0, RDW Std Deviation 45.0 H, RDW Coeff of Mildred 14.0, Plt Count 155, MPV 11.1, Immature Gran % (Auto) 0.300, Neut % (Auto) 86.3 H, Lymph % (Auto) 7.5 L, Webster % (Auto) 5.2, Eos % (Auto) 0.5, Baso % (Auto) 0.2, A bsolute Neuts (auto) 8.3 H, Absolute Lymphs (auto) 0.72 L, Nucleated RBC % 0, Sodium 140, Potassium 4.6, Chloride 107, (more content not included)... Normal [facility] ERCP Biliary/Pancreason 04-17 ERCP Biliary/Pancreas [facility] Imaging Services [address] [place] [address] ERCP Biliary/Pancreas MR#: [id number] Acct: [id number] Name: HOLLIE CULLEN Rep #: [id number] : 1950 M 74 From: Warren Ponce MD PCP: Dr. Erwin Garcia MD Status: ADM IN Study: ERCP Biliary/Pancreas Date of Exam: 04/26/25 Exam# [id number] Ordering Dr: Curtis Villatoro DO PROCEDURE: ERCP BILIARY/PANCREAS 04/26/2025 REASON FOR EXAM: ERCP TECHNIQUE: Fluoroscopic images for ERCP was performed. COMPARISON: 04/25/2025 ultrasound. FINDINGS: Contrast fills the biliary tree. See procedure report for full details. RAD/ERCP Biliary/Pancreas IMPRESSION: As above. Reading Location: [id number] CC: Dr. Erwin Garcia MD; Curtis Villatoro DO [employer]er: Signed Normal [facility] ERCP Reporton 04-26-2025 ERCP Report [facility] Medical Records Department [address] [place] [address] ERCP Report MR#: [id number] Acct: [id number] Name: HOLLIE CULLEN Rep #: [id number] : 1950 74 From: Curtis Villatoro DO PCP: Dr. Erwin Garcia MD Status:ADM IN Patient Name: Hollie Cullen Procedure Date: 04/26/2025 4:09 PM Date of : 1950 Age: 74 Procedure: ERCP Indications: Abdominal pain of suspected biliary origin, Abdominal pain of suspected pancreatic origin, Acute pancreatitis Providers: Curtis Villatoro DO Medicines: General Anesthesia Patient Profile: This is a 74 year old male. This is a 74 year old male. Refer to note in patient chart for documentation of history and physical. Patient has symptoms of acute heartburn and acute jaundice. This patient has no history of previous ERCP. Complications: No immediate complications. Procedure: Pre-Anesthesia Assessment: - Prior to the procedure, a History and Physical was performed, and patient medications and allergies were reviewed. The patient is competent. The risks and benefits of the procedure and the sedation options and risks were discussed with the patient. All questions were answered and informed consent was obtained. Patient identification and proposed procedure were verified by the physician in the pre-procedure area. Mental Status Examination: alert and oriented. Airway Examination: normal oropharyngeal airway and neck mobility. Respiratory Examination: clear to auscultation. CV Examination: normal. Prophylactic Antibiotics: The patient does not require prophylactic antibiotics. Prior Anticoagulants: The patient has taken no anticoagulant or antiplatelet agents except for NSAID medication. ASA Grade Assessment: II - A patient with mild systemic disease. After reviewing the risks and benefits, the patient was deemed in satisfactory condition to undergo the procedure. The anesthesia plan was to use general anesthesia. Immediately prior to administration of medications, the patient was re-assessed for adequacy to receive sedatives. The heart rate, respiratory rate, oxygen saturations, blood pressure, adequacy of pulmonary ventilation, and response to care were monitored throughout the procedure. The physical status of the patient was re-assessed after the procedure. After obtaining informed consent, the scope was passed under direct vision. Throughout the procedure, the patient's blood pressure, pulse, and oxygen saturations were monitored continuously. The Duodenoscope was introduced through the mouth, and advanced to the duodenum and used to inject contrast into the bile duct. The ERCP was accomplished without difficulty. The patient tolerated the procedure well. Scope In: 5:01:55 PM Scope Out: 5:21:02 PM Total Procedure Duration Time 0 hours 19 minutes 7 seconds Findings: The cook box filler film was normal. The esophagus was successfully intubated under direct vision. The scope was advanced to a normal major papilla in the descending duodenum without detailed examination of the pharynx, larynx and associated structures, and upper GI tract. The upper GI tract was grossly normal. The bile duct was deeply cannulated. Contrast was injected. I personally interpreted the bile duct images. There was brisk flow of contrast through the ducts. Image quality was excellent. Contrast extended to the biliary pancreatic junction. Opacification of the entire opacified area and entire biliary tree was successful. The maximum diameter of the ducts was 10 mm. The entire opacified area and entire biliary tree contained two stones, the largest of which was 6 mm in diameter. The entire opacified area was moderately dilated, with a stone causing an obstruction. The largest diameter was 14 mm. A long 0.025 inch Jagwire was passed into the biliary tree. A 5 mm biliary sphincterotomy was made with a traction (standard) sphincterotome using ERBE electrocautery. There was no post-sphincterotomy bleeding. The biliary tree was swept with a 12 mm balloon starting at the bifurcation, left intrahepatic duct(s) and right intrahepatic duct(s). All stones were removed. One 10 Fr by 7 cm temporary stent was placed 5 cm into the common bile duct. Bile flowed through the stent. The stent was in good position. Impression: - The biliary system were moderately dilated, with a stone causing an obstruction. - Choledocholithiasis was found. Complete removal was accomplished by biliary sphincterotomy and balloon extraction. - A biliary sphincterotomy was performed. - The biliary tree was swept. - One temporary stent was placed into the common bile duct. Procedure Code(s): --- Professional --- 94931, Endoscopic retrograde cholangiopancreatograph y (ERCP); with placement of endoscopic stent into biliary or pancrea (more content not included)... Normal [facility] Electrocardiogram reportOrde red By: Ace Braswell on 04-26-2025 EKG study [facility] Cardiovascular Services [address] [place] [id number] 12 Lead EKG 04/26/25 0533 MR#: [id number] Acct: [id number] Name: SUBHASHHOLLIE Rep #:[id number] : 1950 74 From: Ace bazan MD Attending Dr: Dr. Nacho Garza DO Status: ADM IN Ordering Dr: José Michael MD Date: 04/17 Location: [facility] Sex: M C Admitted: 04/26/25 Test Reason : PRE-OP Blood Pressure : */* mmHG Vent. Rate : 74 BPM Atrial Rate : 74 BPM P-R Int : 156 ms QRS Dur : 86 ms QT Int : 358 ms P-R-T Axes : 68 4 59 degrees QTcB Int : 397 ms Normal sinus rhythm Low voltage QRS Borderline ECG When compared with ECG of 15-Feb-2025 08:56, Borderline criteria for Inferior infarct are no longer Present Confirmed by Ace Braswell ([id number]), state editor LUIZ SEGURA ([id number]) on 04/26/2025 11:09:19 AM Referred By: EVI Confirmed By: Ace Braswell 04/26/25 1109 Date _ Ace Braswell MD CC: Dr. José Michael MD; Dr. Nacho Garza DO; Dr. Erwin Garcia MD ~ Signed [facility] Other Eosinophil percentageOrdered By: Jose Mora on 04-26-2025 Eosinophils/100 WBC (Bld) 0.5 % 0-5 [facility] Erythrocyte distribution wid th ratioOrdered By: Jose Mora on 04-26-2025 Erythrocyte distribution width (RBC) [Ratio] 14.0 % 11.6-14.6 [facility] Erythrocyte distribution wid th standard deviationOrdered By: Jose Mora on 04-26-2025 Erythrocyte distribution width (RBC) [Ratio] 45.0 fl High 35.1-43.9 [facility] Hematocrit Auto (Bld) [Volum e fraction]Ordered By: Jose Mora on 04-26-2025 Hematocrit (Bld) [Volume fraction] 41.8 % 40-54 [facility] Hemoglobin measurementOrdere d By: Jose Mora on 04-26-2025 Hemoglobin (Bld) [Mass/Vol] 13.8 g/dL 13.0-16.5 [facility] Immature granulocytes/100 WB C Auto (Bld)Ordered By: Jose Mora on 04-26-2025 Immature granulocytes/100 WBC (Bld) 0.300 % 0.0-0.9 [facility] Comment on above: IG% - Immature Granu locytes (promyelocytes, myelocytes and metamyelocytes) > 1% indicates that a LEFT SHIFT is Present. Lipaseon 04-26-2025 Lipase [Catalytic activity/Vol] 2883 U/L High 13-75 [facility] Comment on above: Result Comment: Prashanth weathers note: LIPASE revised reference range effective 23. New Lipase methodology. Expected to produce lower values than the previous assay method. NEW Reference Range: 13 - 75 U/L Performed By: #### L 100.0100, L500.2500 #### [facility] [address] [place] [address], [address] Lipase measurementOrdered By : Jose Mora on 04-26-2025 Lipase [Catalytic activity/Vol] 2883 U/L High 13-75 [facility] Comment on above: Please note:LIPASE r evised reference range effective 23. New Lipase methodology. Expected to produce lower values than the previous assay method. NEW Reference Range: 13 - 75 U/L MCV (mean corpuscular volume ) determinationOrdered By: Jose Mora on 04-26-2025 MCV (RBC) [Entitic vol] 86.5 fL 80-94 [facility] Mean corpuscular hemoglobin (MCH) determinationOrdered By: Jose Mora on 04-26-2025 MCH (RBC) [Entitic mass] 28.6 pg 27.0-32.0 [facility] Mean corpuscular hemoglobin concentration (MCHC) determinationOrdered By: Jose Mora on 04-26-2025 MCHC (RBC) [Mass/Vol] 33.0 g/dL 32-36 [facility] Mean platelet volume determi nationOrdered By: Jose Mora on 04-26-2025 Platelet mean volume (Bld) [Entitic vol] 11.1 fL 6.2-12.0 [facility] Monocyte percentageOrdered B y: Jose Mora on 04-26-2025 Monocytes/100 WBC (Bld) 5.2 % 0-10 [facility] Neutrophil percentageOrdered By: Jose Mora on 04-26-2025 Neutrophils/100 WBC (Bld) 86.3 % High 47-70 [facility] Nucleated red blood cell per centageOrdered By: Jose Mora on 04-26-2025 Nucleated RBC/100 WBC (Bld) [Ratio] 0 % 0-5 [facility] Platelet countOrdered By: Jose Mora on 04-26-2025 Platelets (Bld) [#/Vol] 155 10*3/uL 150-450 [facility] RBC Auto (Bld) [#/Vol]Ordere d By: oJse Mora on 04-26-2025 RBC (Bld) [#/Vol] 4.83 10*6/uL 4.6-6.2 [facility] White blood cell (WBC) count Ordered By: Jose Mora on 04-26-2025 WBC (Bld) [#/Vol] 9.7 10*3/uL 4.4-11.0 [facility] Absolute lymphocyte countOrd ered By: ED PROVIDER on 04-25-2025 Lymphocytes Auto (Unsp spec) [#/Vol] 1.15 10*3/uL 0.83-4.51 [facility] Absolute neutrophil countOrd ered By: ED PROVIDER on 04-25-2025 Neutrophils (Bld) [#/Vol] 8.3 10*3/uL High 2.0-7.7 [facility] Anion gap in Serum or Plasma Ordered By: Konstantin Bradford on 04-25-2025 Anion gap [Moles/Vol] 13 mmol/L 5-15 [facility] Automated lymphocyte count a s percentage of total leukocytesOrdered By: ED PROVIDER on 04-25-2025 Lymphocytes/100 WBC Auto (Unsp spec) 10.5 % Low 19-41 [facility] BUN/creatinine ratioOrdered By: Konstantin Bradford on 04-25-2025 Urea nitrogen/Creatinine [Mass ratio] 8.7 mg/mg Low 10-20 [facility] Basophil percentageOrdered B y: ED PROVIDER on 04-25-2025 Basophils/100 WBC (Bld) 0.4 % 0-1 [facility] Bilirubin, totalOrdered By: Konstantin Bradford on 04-25-2025 Bilirubin [Mass/Vol] 5.33 mg/dL High 0.00-1.30 [facility] CBC W/Diff, Automatedon Absolute Lymph 1.15 X10 3/uL Normal 0.83-4.51 [facility] Comment on above: Performed By: #### L 500.4050, L100.0100, L501.2450 #### [facility] [address] [place], [address] Absolute Neut 8.3 X10 3/uL High 2.0-7.7 [facility] Comment on above: Performed By: #### L 500.4050, L100.0100, L501.2450 #### [facility] [address] [place], [address] Basophils/100 WBC (Bld) 0.4 % Normal 0-1 [facility] Comment on above: Performed By: #### L 500.4050, L100.0100, L501.2450 #### [facility] [address] [place], [address] Eosinophils/100 WBC (Bld) 0.7 % Normal 0-5 [facility] Comment on above: Performed By: #### L 500.4050, L100.0100, L501.2450 #### [facility] [address] [place], [address] Erythrocyte distribution width (RBC) [Ratio] 13.9 % Normal 11.6-14.6 [facility] Comment on above: Performed By: #### L 500.4050, L100.0100, L501.2450 #### [facility] [address] [place], [address] Hematocrit (Bld) [Volume fraction] 47.8 % Normal 40-54 [facility] Comment on above: Performed By: #### L 500.4050, L100.0100, L501.2450 #### [facility] [address] [place], [address] Hemoglobin (Bld) [Mass/Vol] 15.8 g/dL Normal 13.0-16.5 [facility] Comment on above: Performed By: #### L 500.4050, L100.0100, L501.2450 #### [facility] [address] [place], [address] IG% 0.400 Normal 0.0-0.9 [facility] Comment on above: Result Comment: IG% - Immature Granulocytes (promyelocytes, myelocytes and metamyelocytes) > 1% indicates that a LEFT SHIFT is Present. Performed By: #### L 500.4050, L100.0100, L501.2450 #### [facility] [address] [place], [address] Lymphocytes/100 WBC (Bld) 10.5 % Low 19-41 [facility] Comment on above: Performed By: #### L 500.4050, L100.0100, L501.2450 #### [facility] [address] [place], [address] MCH (RBC) [Entitic mass] 27.9 pg Normal 27.0-32.0 [facility] Comment on above: Performed By: #### L 500.4050, L100.0100, L501.2450 #### [facility] [address] [place], [address] MCHC (RBC) [Mass/Vol] 33.1 g/dL Normal 32-36 [facility] Comment on above: Performed By: #### L 500.4050, L100.0100, L501.2450 #### [facility] [address] [place], [address] MCV (RBC) [Entitic vol] 84.5 fL Normal 80-94 [facility] Comment on above: Performed By: #### L 500.4050, L100.0100, L501.2450 #### [facility] [address] [place], [address] Monocytes/100 WBC (Bld) 11.7 % High 0-10 [facility] Comment on above: Performed By: #### L 500.4050, L100.0100, L501.2450 #### [facility] [address] [place], [address] Neutrophils/100 WBC (Bld) 76.3 % High 47-70 [facility] Comment on above: Performed By: #### L 500.4050, L100.0100, L501.2450 #### [facility] [address] [place], [address] Nucleated RBC (Bld) [#/Vol] 0 10*3/uL Normal 0-5 [facility] Comment on above: Performed By: #### L 500.4050, L100.0100, L501.2450 #### [facility] [address] [place], [address] Platelet mean volume (Bld) [Entitic vol] 11.1 fL Normal 6.2-12.0 [facility] Comment on above: Performed By: #### L 500.4050, L100.0100, L501.2450 #### [facility] [address] [place], [address] Platelets (Bld) [#/Vol] 197 10*3/uL Normal 150-450 [facility] Comment on above: Performed By: #### L 500.4050, L100.0100, L501.2450 #### [facility] [address] [place], [address] RBC (Bld) [#/Vol] 5.66 10*6/uL Normal 4.6-6.2 [facility] Comment on above: Performed By: #### L 500.4050, L100.0100, L501.2450 #### [facility] [address] [place], [address] RDW SD 42.5 fl Normal 35.1-43.9 [facility] Comment on above: Performed By: #### L 500.4050, L100.0100, L501.2450 #### [facility] [address] [place], [address] WBC (Bld) [#/Vol] 10.9 10*3/uL Normal 4.4-11.0 [facility] Comment on above: Performed By: #### L 500.4050, L100.0100, L501.2450 #### [facility] [address] [place], [address] CNOVon 04-25-2025 CNOV Office Visit (INTMWS ) SUBHASHHOLLIE ([id number]) 1950 M Date Time Provider Department 04/25/25 3:00 PM ERWIN GARCIA INTMWS During your visit today, we recorded the following information about you: Temperature Pulse Respiration Blood pressure 98.7 degrees 68/minute 16/minute 132/80 Weight 102.9 kg Erwin Garcia MD 04/25/2025 4:41 PM Signed This note was created using NoteWriter. Subjective Patient presents with: ER F/U Hollie Robles Subhash is a 74 year old male here with spouse. Recording using [employer] software for draft documentation of the visit was discussed with the patient/authorized signs and displays sales representative; all questions welcomed and answered. Patient/authorized signs and displays sales representative agreed to proceed Abdominal Pain: - Evaluated at [facility] in [place] 04/23/25. - Severe pain in the upper abdomen radiating to the chest and back. - Pain improved since ED visit but remains significant; persistent over the past two days. - Described as pressure in the upper abdomen, exacerbated by deep breathing. - Associated with bloating, early satiety, and excessive burping. - Difficulty eating and drinking due to feeling stuffed. - Denies nausea or feeling sick. - ED visit on April 23 at [facility]; diagnosed with gallstones. - Scheduled to see Dr. Richmond, a surgeon at [facility], on Friday. - No pain medication provided at ED; only antiemetics. - Has oxycodone 5 mg at home, prescribed by Dr. Romero in February post-nephrectomy; took only one pill post-surgery. Review of Systems Cardiovascular: (+) chest pressure Respiratory: (+) pain with deep inspiration, (-) shortness of breath Gastrointestinal: (+) upper abdominal pain, (+) abdominal bloating, (+) early satiety, (+) excessive belching Musculoskeletal: (+) upper back pain ACTIVE PROBLEM LIST Tobacco Use Disorder Chronic Rhinitis Hyperlipidemia CKD (chronic kidney disease) stage 3, GFR 30-59 ml/min ([facility]) Impaired Fasting Glucose Obesity, Class I, Bmi 30-34.9 Bph With Obstruction/Lower Urinary Tract Symptoms Personal History of Skin Cancer Calculus of Gallbladder Without Cholecystitis Without Obstruction Social History Tobacco Use Smoking status: Every [...] Take 0.4 mg by mouth once daily. ammonium lactate (LAC-HYDRIN) 12 % cream Apply to affected area once daily. Dry skin. simvastatin (ZOCOR) 40 mg tablet Take 1 tablet by mouth daily at bedtime. dutasteride (AVODART) 0.5 mg capsule Take 1 capsule by mouth once daily. montelukast (SINGULAIR) 10 mg tablet Take 1 tablet by mouth daily at bedtime. For allergies. MULTIVITAMIN TAB Take one(1) tablet daily. No current facility-administered medications for this visit. Objective BP 132/80 Pulse 68 Temp 37.1 ?C (98.7 ?F) Resp 16 Wt 102.9 kg (226 lb 13.7 oz) BMI 32.48 kg/m? Physical Exam Constitutional: General: He is not in acute distress. Appearance: He is not ill-appearing or diaphoretic. Eyes: General: No scleral icterus. Conjunctiva/sclera: Conjunctivae normal. Cardiovascular: Rate and Rhythm: Normal rate and regular rhythm. Heart sounds: No murmur heard. No gallop. Pulmonary: Effort: No respiratory distress. Breath sounds: No wheezing, rhonchi or rales. Chest: Chest wall: No tenderness. Abdominal: Palpations: Abdomen is soft. There is no mass. Tenderness: There is abdominal tenderness in the epigastric area. There is no right CVA tenderness, left CVA tenderness, guarding or rebound. Negative signs include Palomino's sign. Hernia: No hernia is present. Musculoskeletal: Right lower leg: No edema. Left lower leg: No edema. Neurological: Mental Status: He is alert. 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 Normal [facility] Carbon dioxide, total [Moles /volume] in Central venous bloodOrdered By: Konstantin Bradford on 04-25-2025 CO2 [Moles/Vol] 22.9 mmol/L 21.0-32.0 [facility] Chloride assayOrdered By: Ellis Bradford on 04-25-2025 Chloride [Moles/Vol] 104 mmol/L 98-108 [facility] Comprehensive Metabolic Prof ilon 04-25-2025 Albumin [Mass/Vol] 4.3 g/dL Normal 3.4-4.8 [facility] Comment on above: Performed By: #### L 500.4050, L100.0100, L501.2450 #### [facility] [address] [place], [address] Albumin/Globulin [Mass ratio] 1.4 {ratio} Normal 0.9-2.4 [facility] Comment on above: Performed By: #### L 500.4050, L100.0100, L501.2450 #### [facility] [address] [place], [address] ALK PHOS 228 U/L High 40-129 [facility] Comment on above: Performed By: #### L 500.4050, L100.0100, L501.2450 #### [facility] [address] [place], [address] ALT [Catalytic activity/Vol] 835 U/L High <=46 [facility] Comment on above: Performed By: #### L 500.4050, L100.0100, L501.2450 #### [facility] [address] [place], [address] AST [Catalytic activity/Vol] 486 U/L High <=37 [facility] Comment on above: Performed By: #### L 500.4050, L100.0100, L501.2450 #### [facility] [address] [place], [address] Bilirubin [Mass/Vol] 5.33 mg/dL High 0.00-1.30 [facility] Comment on above: Performed By: #### L 500.4050, L100.0100, L501.2450 #### [facility] [address] [place], [address] BUN/CRE 8.7 RATIO Low 10-20 [facility] Comment on above: Performed By: #### L 500.4050, L100.0100, L501.2450 #### [facility] [address] [place], [address] Calcium [Mass/Vol] 9.7 mg/dL Normal 7.6-11.0 [facility] Comment on above: Performed By: #### L 500.4050, L100.0100, L501.2450 #### [facility] [address] [place], [address] Chloride [Moles/Vol] 104 mmol/L Normal 98-108 [facility] Comment on above: Performed By: #### L 500.4050, L100.0100, L501.2450 #### [facility] [address] [place], [address] CO2 [Moles/Vol] 22.9 mmol/L Normal 21.0-32.0 [facility] Comment on above: Performed By: #### L 500.4050, L100.0100, L501.2450 #### [facility] [address] [place], [address] Creatinine [Mass/Vol] 1.49 mg/dL High 0.70-1.20 [facility] Comment on above: Result Comment: Icte diony present, Results may be affected. Performed By: #### L 500.4050, L100.0100, L501.2450 #### [facility] [address] [place], [address] ECRCL 53.81 ml/min Normal 50-250 [facility] Comment on above: Performed By: #### L 500.4050, L100.0100, L501.2450 #### [facility] [address] [place], [address] GAP 13 Normal 5-15 [facility] Comment on above: Performed By: #### L 500.4050, L100.0100, L501.2450 #### [facility] [address] [place], [address] GFR/1.73 sq M.predicted among non-blacks MDRD (S/P/Bld) [Vol rate/Area] 50 mL/min/{1.73_m2} Low >60 [facility] Comment on above: Result Comment: mL/m in/1.73m2 CKD-EPI Creatinine Equation (2020) Performed By: #### L 500.4050, L100.0100, L501.2450 #### [facility] [address] [place], [address] Globulin (S) [Mass/Vol] 3.1 g/dL Normal 2.2-4.2 [facility] Comment on above: Performed By: #### L 500.4050, L100.0100, L501.2450 #### [facility] [address] [place], [address] Glucose [Mass/Vol] 162 mg/dL High 70-99 [facility] Comment on above: Performed By: #### L 500.4050, L100.0100, L501.2450 #### [facility] [address] [place], [address] Potassium [Moles/Vol] 3.9 mmol/L Normal 3.3-5.1 [facility] Comment on above: Performed By: #### L 500.4050, L100.0100, L501.2450 #### [facility] [address] [place], [address] Sodium [Moles/Vol] 140 mmol/L Normal 133-145 [facility] Comment on above: Performed By: #### L 500.4050, L100.0100, L501.2450 #### [facility] [address] [place], [address] T PROT 7.4 g/dL Normal 5.9-8.4 [facility] Comment on above: Performed By: #### L 500.4050, L100.0100, L501.2450 #### [facility] [address] [place], [address] Urea nitrogen [Mass/Vol] 13 mg/dL Normal 4-19 [facility] Comment on above: Performed By: #### L 500.4050, L100.0100, L501.2450 #### [facility] [address] [place], [address] Emergency Department Summary on 04-25-2025 Emergency Department Summary [facility] Medical Records Department [address] [place] [address] Emergency Department Summary 04/25/25 MR#: [id number] Acct: [id number] Name: HOLLIE CULLEN Rep #: [id number] : 1950 74 From: Konstantin Bradford DO PCP: Dr. Erwin Garcia MD Status:REG ER Location: ED HPI History of Present Illness Chief Complaint: Abd Pain Narrative Narrative: Patient is a 74-year-old male with past medical history of chronic kidney disease status post right nephrectomy, hyperlipidemia, alcohol use who presented to the emergency department chief complaint of concern that his gallbladder is being obstructed by stone. He states that on Friday he had significant pain he went to a freestanding ER in [place] and had a CT scan that showed a large stone at that point in time. He states that as the weekend progressed and into today's pain significantly worsened prompting him to come here for further evaluation management. He states that he has followed with Dr. Richmond in the past and states that he has a upcoming appointment on Friday with her but does not feel that he can make it till then. He states that he was post have his gallbladder removed in the past but the right kidney was not functioning appropriately and they wanted to have that kidney removed prior to proceeding with any other surgeries. [facility] Medical History Wears glasses Wears dentures [...] #30 caps 02/08/25 Un known Rx release oxycodone 5 mg tablet 5 mg PO Q6H PRN pain 7 days #14 Unknown Rx tabs tamsulosin 0.4 mg capsule (Flomax) 0.4 mg PO DAILY #30 caps 5 Unknown Rx Allergy/AdvReac Type Severity Reaction Status Date / Time No Known Allergies Allergy Verified 04/25/25 21:09 Family History Mother Diabetes Brother Diabetes Colon cancer Surgical History Hx of laparoscopy Status post appendectomy Social History Smoking Status: Light Smoker (<10/day) quit status: not considering quitting ROS ROS ED ROS Narrative Constitutional: Denies fevers, chills, headaches Cardiovascular: Denies chest pain or palpitations Respiratory: Denies shortness of breath Abdomen: Complains of abdominal pain as noted above : Denies urinary symptoms Neurological: Denies numbness, aches, tingling Musculoskeletal: Denies back pain Skin: Denies rashes or lesions EXAM Physical Exam Narrative Exam Narrative: General: Patient lying in bed did appear to be uncomfortable secondary to his abdominal pain Head: Atraumatic, normocephalic Eyes: PERRL bilaterally, EOMI bilaterally, no conjunctival injection noted Neck: Soft, supple, trachea midline Cardiovascular: Regular rate and rhythm Respiratory: Clear to auscultation bilaterally Abdomen: Soft, nondistended, tender to palpation in the right upper quadrant positive Palomino sign no rebound or guarding on exam Extremities: +5/5 strength noted in the bilateral upper and lower extremities Neurological: Patient follow commands knew that he was at [facility] years 2024 Skin: Warm, dry, intact patient does appear to be slightly jaundiced Const Vital Signs: 04/25/25 21:06 04/25/25 23:05 04/25/25 23:48 Temperature 97.5 F L 98.6 F Temperature Source Oral Pulse Rate 73 65 65 Respiratory Rate 16 18 Blood Pressure 119/67 119/62 Blood Pressure Mean 84 81 Pulse Ox 91 92 Oxygen Delivery Method Room Air MDM MDM MDM Narrative Medical decision making narrative: Patient is a 74-year-old male who presents to the emerged from chief complaint of abdominal pain and concern for cholecystitis. On the differential diagnosis includes but not limited to acute cholecystitis, pancreatitis, bowel obstruction, cholelithiasis, choledocholithiasis, cholangitis. Once workup is obtained reviewed he will be reevaluated. Patient be given IV fluids morphine Zofran Patient CBC reviewed showed no evidence leukocytosis white blood count normal at 10.9, he was 15.8, platelet count was 197. Joanie (more content not included)... Normal [facility] Eosinophil percentageOrdered By: ED PROVIDER on 04-25-2025 Eosinophils/100 WBC (Bld) 0.7 % 0-5 [facility] Erythrocyte distribution wid th ratioOrdered By: ED PROVIDER on 04-25-2025 Erythrocyte distribution width (RBC) [Ratio] 13.9 % 11.6-14.6 [facility] Erythrocyte distribution wid th standard deviationOrdered By: ED PROVIDER on 04-25-2025 Erythrocyte distribution width (RBC) [Ratio] 42.5 fl 35.1-43.9 [facility] Gallbladderon 04-25-2025 Gallbladder [facility] Imaging Services [address] [place] [address] [place] [address] Gallbladder MR#: [id number] Acct: [id number] Name: HOLLIE CULLEN Rep #: [id number] : 1950 M 74 From: Joanne Mendez nd, MD PCP: Dr. Erwin Garcia MD Status: REG ER Study: Gallbladder Date of Exam: 04/25/25 Exam# [id number] Ordering Dr: Konstantin Bradford DO PROCEDURE: GALLBLADDER 04/25/2025 REASON FOR EXAM: RUQ PAIN COMPARISON: Right upper quadrant ultrasound and CT abdomen pelvis 01/31/2025. FINDINGS: Liver: Diffusely echogenic suggesting fatty infiltration. Normal in size measuring 14.5 cm. The main portal vein is patent with normal directional flow at midline. Gallbladder: A single echogenic gallstone is identified. No gallbladder wall thickening, pericholecystic fluid or tenderness. Common bile duct: Normal measuring 0.4 cm. Pancreas: Obscured by bowel gas. Other: Prior right nephrectomy. US/Gallbladder IMPRESSION: Cholelithiasis without evidence of acute cholecystitis. Reading Location: [facility] CC: Dr. Konstantin Bradford DO; Dr. Erwin Garcia MD [employer]: Signed Normal [facility] Glomerular filtration rate ( GFR) estimation/1.73 sq m using serum, plasma, or whole bOrdered By: Konstantin Bradford on 04-25-2025 GFR/1.73 sq M.predicted among non-blacks MDRD (S/P/Bld) [Vol rate/Area] 50 mL/min/{1.73_m2} Low >60 [facility] Comment on above: mL/min/1.73m2 CKD-EP I Creatinine Equation (2020) Hematocrit Auto (Bld) [Volum e fraction]Ordered By: ED PROVIDER on 04-25-2025 Hematocrit (Bld) [Volume fraction] 47.8 % 40-54 [facility] Hemoglobin measurementOrdere d By: ED PROVIDER on 04-25-2025 Hemoglobin (Bld) [Mass/Vol] 15.8 g/dL 13.0-16.5 [facility] Immature granulocytes/100 WB C Auto (Bld)Ordered By: ED PROVIDER on 04-25-2025 Immature granulocytes/100 WBC (Bld) 0.400 % 0.0-0.9 [facility] Comment on above: IG% - Immature Granu locytes (promyelocytes, myelocytes and metamyelocytes) > 1% indicates that a LEFT SHIFT is Present. Laboratory - Chemistry and C hemistry - challengeOrdered By: Konstantin Bradford on 04-25-2025 AST [Catalytic activity/Vol] 486 U/L High <38 [facility] Lipaseon 04-25-2025 Lipase [Catalytic activity/Vol] U/L High 13-75 [facility] Comment on above: Result Comment: Prashanth weathers note: LIPASE revised reference range effective 23. New Lipase methodology. Expected to produce lower values than the previous assay method. NEW Reference Range: 13 - 75 U/L Performed By: #### L 500.4050, L100.0100, L501.2450 #### [facility] [address] [place], [address] Lipase measurementOrdered By : Konstantin Bradford on 04-25-2025 Lipase [Catalytic activity/Vol] U/L High 13-75 [facility] Comment on above: Please note:LIPASE r evised reference range effective 23. New Lipase methodology. Expected to produce lower values than the previous assay method. NEW Reference Range: 13 - 75 U/L MCV (mean corpuscular volume ) determinationOrdered By: ED PROVIDER on 04-25-2025 MCV (RBC) [Entitic vol] 84.5 fL 80-94 [facility] Mean corpuscular hemoglobin (MCH) determinationOrdered By: ED PROVIDER on 04-25-2025 MCH (RBC) [Entitic mass] 27.9 pg 27.0-32.0 [facility] Mean corpuscular hemoglobin concentration (MCHC) determinationOrdered By: ED PROVIDER on 04-25-2025 MCHC (RBC) [Mass/Vol] 33.1 g/dL 32-36 [facility] Mean platelet volume determi nationOrdered By: ED PROVIDER on 04-25-2025 Platelet mean volume (Bld) [Entitic vol] 11.1 fL 6.2-12.0 [facility] Monocyte percentageOrdered B y: ED PROVIDER on 04-25-2025 Monocytes/100 WBC (Bld) 11.7 % High 0-10 [facility] Neutrophil percentageOrdered By: ED PROVIDER on 04-25-2025 Neutrophils/100 WBC (Bld) 76.3 % High 47-70 [facility] Nucleated red blood cell per centageOrdered By: ED PROVIDER on 04-25-2025 Nucleated RBC/100 WBC (Bld) [Ratio] 0 % 0-5 [facility] Platelet countOrdered By: ED PROVIDER on 04-25-2025 Platelets (Bld) [#/Vol] 197 10*3/uL 150-450 [facility] Potassium measurement (mass/ volume)Ordered By: Konstantin Bradford on 04-25-2025 Potassium (Unsp spec) [Mass/Vol] 3.9 mmol/L 3.3-5.1 [facility] RBC Auto (Bld) [#/Vol]Ordere d By: ED PROVIDER on 04-25-2025 RBC (Bld) [#/Vol] 5.66 10*6/uL 4.6-6.2 [facility] Serum creatinine measurement (mass/volume)Ordered By: Konstantin Bradford on 04-25-2025 Creatinine [Mass/Vol] 1.49 mg/dL High 0.70-1.20 [facility] Comment on above: Icterus present, Res ults may be affected. Serum globulin measurementOr dered By: Konstantin Bradford on 04-25-2025 Globulin (S) [Mass/Vol] 3.1 g/dL 2.2-4.2 [facility] Serum glucose measurement (m ass/volume)Ordered By: Konstantin Bradford on 04-25-2025 Glucose [Mass/Vol] 162 mg/dL High 70-99 [facility] Serum or plasma alanine cervantes otransferase (ALT) measurementOrdered By: Konstantin Bradford on 04-25-2025 ALT [Catalytic activity/Vol] 835 U/L High <47 [facility] Serum or plasma albumin rayshawn urement (mass/volume)Ordered By: Konstantin Bradford on 04-25-2025 Albumin [Mass/Vol] 4.3 g/dL 3.4-4.8 [facility] Serum or plasma albumin/glob ulin mass ratioOrdered By: Konstantin Bradford on 04-25-2025 Albumin/Globulin [Mass ratio] 1.4 {ratio} 0.9-2.4 [facility] Serum or plasma alkaline luc sphatase measurementOrdered By: Konstantin Bradford on 04-25-2025 ALP [Catalytic activity/Vol] 228 U/L High 40-129 [facility] Serum or plasma calcium rayshawn urement (mass/volume)Ordered By: Konstantin Bradford on 04-25-2025 Calcium [Mass/Vol] 9.7 mg/dL 7.6-11.0 [facility] Serum or plasma urea nitroge n measurement (mass/volume)Ordered By: Konstantin Bradford on 04-25-2025 Urea nitrogen [Mass/Vol] 13 mg/dL 4-19 [facility] Sodium levelOrdered By: Rosie Bradford on 04-25-2025 Sodium [Moles/Vol] 140 mmol/L 133-145 [facility] Total proteinOrdered By: Dmitry Bradford on 04-25-2025 Protein [Mass/Vol] 7.4 g/dL 5.9-8.4 [facility] White blood cell (WBC) count Ordered By: ED PROVIDER on 04-25-2025 WBC (Bld) [#/Vol] 10.9 10*3/uL 4.4-11.[address] [facility] [address] Abdomen WO contraston 1. A 6 [...] Remy Ernst 04/24/2025 12:23 AM Dictation workstation: [id number] Interpreted By: Remy Ernst, STUDY: CT ABDOMEN PELVIS WO IV CONTRAST; 04/23/2025 11:43 pm INDICATION: Signs/Symptoms:Nausea vomiting, elevated LFTs. COMPARISON: CT abdomen and pelvis dated 01/25/2014 ACCESSION NUMBER(S): [id number] ORDERING CLINICIAN: JUSTINA KIM TECHNIQUE: CT of [...] BONES: No acute osseous abnormality is identified. [facility] Scott Ernst v, MD - 04/24/2025 Interpreted By: Remy Ernst, STUDY: CT ABDOMEN PELVIS WO IV CONTRAST; 04/23/2025 11:43 pm INDICATION: Signs/Symptoms:Nausea vomiting, elevated LFTs. COMPARISON: CT abdomen and pelvis dated 01/25/2014 ACCESSION NUMBER(S): [id number] ORDERING CLINICIAN: JUSTINA KIM TECHNIQUE: CT of [...] Remy Ernst 04/24/2025 12:23 AM Dictation workstation: [id number] [facility] Work Phone: CT Abdomen WO contrastOrdere d By: Remy Ernst on 04-24-2025 [facility] Work Phone: Tropinin I.cardiac panel Hig h sensitivity methodon 04-24-2025 Interpretation and review of laboratory results Normal [facility] Less than 99th percentile of normal [...] performed using a different testing methodology at [facility] than at other [facility]. Direct result comparisons should only be made within the same method. [facility] Troponin, High Sensitivity, 1 Houron 04-24-2025 Tropinin I.cardiac panel High sensitivity method 5 ng/L 0 - 20 ng/L [facility] APTTon 04-23-2025 aPTT Coag (PPP) [Time] 31 [facility] Basic metabolic 2000 panelon 04-23-2025 Anion gap [Moles/Vol] 10 mmol/L 10 - 2 0 mmol/L [facility] Calcium [Mass/Vol] 9.3 mg/dL 8.6 - 10. 3 mg/dL [facility] Chloride [Moles/Vol] 106 mmol/L 98 - 10 7 mmol/L [facility] CO2 [Moles/Vol] 27 mmol/L 21 - 32 mmol/L [facility] Creatinine [Mass/Vol] 1.42 mg/dL High 0.50 - 1.30 mg/dL [facility] GFR/1.73 sq M.predicted among non-blacks MDRD (S/P/Bld) [Vol rate/Area] 53 mL/min/{1.73_m2} Low - PINF [facility] Comment on above: Calculations of gayatri mated GFR are performed using the 2020 CKD-EPI Study Refit equation without the race variable for the IDMS-Traceable creatinine methods. https://jasn.asnjournals.org/content//ASN.02666 02129 Glucose [Mass/Vol] 121 mg/dL High 74 - 99 mg/dL [facility] Interpretation and review of laboratory results Abnormal [facility] Potassium [Moles/Vol] 3.8 mmol/L 3.5 - 5.3 mmol/L [facility] Sodium [Moles/Vol] 139 mmol/L 136 - 145 mmol/L [facility] Urea nitrogen [Mass/Vol] 22 mg/dL 6 - 23 mg/dL [facility] Anion gap [Moles/Vol] 10 mmol/L Normal 10-20 [facility] Comment on above: Performed By: #### 2 4321-2 #### ELLEN MAHAJAN ([id number]) [facility] ([facility]) [address] [place] [address] Calcium [Mass/Vol] 9.3 mg/dL Normal 8.6-10.3 [facility] Comment on above: Performed By: #### 2 4321-2 #### ELLEN MAHAJAN ([id number]) [facility] ([facility]) [facility] [place] [address] Chloride [Moles/Vol] 106 mmol/L Normal 98-107 [facility] Comment on above: Performed By: #### 2 4321-2 #### ELLEN MAHAJAN ([id number]) [facility] ([facility]) [facility] [place] [address] CO2 [Moles/Vol] 27 mmol/L Normal 21-32 [facility] Comment on above: Performed By: #### 2 4321-2 #### ELLEN MAHAJAN ([id number]) [facility] ([facility]) [address] [place] [address] Creatinine [Mass/Vol] 1.42 mg/dL High 0.50-1.30 [facility] Comment on above: Performed By: #### 2 4321-2 #### ELLEN MAHAJAN ([id number]) [facility] ([facility]) [address] [place] [address] Glomerular filtration rate/1.73 sq M.predicted 53 mL/min/1.73m*2 Low >60 [facility] Comment on above: Result Comment: Calc ulations of estimated GFR are performed using the 2020 CKD-EPI Study Refit equation without the race variable for the IDMS-Traceable creatinine methods. https://jasn.asnjournals.org/content/early/ASN.47736 17926 Performed By: #### 2 4321-2 #### ELLEN MAHAJAN ([id number]) [facility] ([facility]) [address] [place] [address] Glucose [Mass/Vol] 121 mg/dL High 74-99 [facility] Comment on above: Performed By: #### 2 4321-2 #### ELLEN MAHAJAN ([id number]) [facility] ([facility]) [address] [place] [address] Potassium [Moles/Vol] 3.8 mmol/L Normal 3.5-5.3 [facility] Comment on above: Performed By: #### 2 4321-2 #### ELLEN MAHAJAN ([id number]) [facility] ([facility]) [address] [place] [address] Sodium [Moles/Vol] 139 mmol/L Normal 136-145 [facility] Comment on above: Performed By: #### 2 4321-2 #### ELLEN MAHAJAN ([id number]) [facility] ([facility]) [address] [place] [address] Urea nitrogen [Mass/Vol] 22 mg/dL Normal 6-23 [facility] Comment on above: Performed By: #### 2 4321-2 #### ELLEN MAHAJAN ([id number]) [facility] ([facility]) [address] [place] [address] CBC W Auto Differential pane l (Bld)on 04-23-2025 Basophils (Bld) [#/Vol] 0.02 10*3/uL [facility] Basophils/100 WBC (Bld) 0.3 % 0.0 - 2.0 % [facility] Eosinophils (Bld) [#/Vol] 0.12 10*3/uL [facility] Eosinophils/100 WBC (Bld) 1.9 % 0.0 - 6.0 % [facility] Erythrocyte distribution width (RBC) [Ratio] 13.6 % 11.5 - 14.5 % [facility] Hematocrit (Bld) [Volume fraction] 42 % 41.0 - 52.0 % [facility] Hemoglobin (Bld) [Mass/Vol] 13.8 g/dL 13.5 - 17.5 g/dL [facility] Immature granulocytes (Bld) [#/Vol] 0.01 10*3/uL [facility] Immature granulocytes/100 WBC (Bld) 0.2 % 0.0 - 0.9 % [facility] Comment on above: Immature Granulocyte Count (IG) includes promyelocytes, myelocytes and metamyelocytes but does not include bands. Percent differential counts (%) should be interpreted in the context of the absolute cell counts (cells/UL). Lymphocytes (Bld) [#/Vol] 2.04 10*3/uL [facility] Lymphocytes/100 WBC (Bld) 33 % 13.0 - 44.0 % [facility] MCH (RBC) [Entitic mass] 28.5 pg 26.0 - 34.0 pg [facility] MCHC (RBC) [Mass/Vol] 32.9 g/dL 32.0 - 36.0 g/dL [facility] MCV (RBC) [Entitic vol] 87 fL 80 - 100 fL [facility] Monocytes (Bld) [#/Vol] 0.7 10*3/uL [facility] Monocytes/100 WBC (Bld) 11.3 % 2.0 - 10.0 % [facility] Neutrophils (Bld) [#/Vol] 3.29 10*3/uL [facility] Comment on above: Percent differential counts (%) should be interpreted in the context of the absolute cell counts (cells/uL). Neutrophils/100 WBC (Bld) 53.3 % 40.0 - 80.0 % [facility] Nucleated RBC/100 WBC (Bld) [Ratio] 0 % [facility] Platelets (Bld) [#/Vol] 174 10*3/uL [facility] RBC (Bld) [#/Vol] 4.84 10*6/uL [facility] WBC (Bld) [#/Vol] 6.2 10*3/uL [facility] Basophils (Bld) [#/Vol] 0.02 x10*3/uL Normal 0.00-0.10 [facility] Comment on above: Performed By: #### 5 7021-8 #### ELLEN MAHAJAN ([id number]) [facility] ([facility]) [address] [place] [address] 07969 Basophils/100 WBC (Bld) 0.3 % Normal 0.0-2.0 [facility] Comment on above: Performed By: #### 5 7021-8 #### ELLEN MAHAJAN ([id number]) [facility] ([facility]) [address] [place] [address] 79892 Eosinophils (Bld) [#/Vol] 0.12 x10*3/uL Normal 0.00-0.40 [facility] Comment on above: Performed By: #### 5 7021-8 #### ELLEN MAHAJAN ([id number]) [facility] ([facility]) [address] [place] [address] 99820 Eosinophils/100 WBC (Bld) 1.9 % Normal 0.0-6.0 [facility] Comment on above: Performed By: #### 5 7021-8 #### ELLEN MAHAJAN ([id number]) [facility] ([facility]) [address] [place] [address] 75706 Erythrocyte distribution width (RBC) [Ratio] 13.6 % Normal 11.5-14.5 [facility] Comment on above: Performed By: #### 5 7021-8 #### ELLEN MAHAJAN ([id number]) [facility] ([facility]) [address] [place] [address] 53277 Hematocrit (Bld) [Volume fraction] 42.0 % Normal 41.0-52.0 [facility] Comment on above: Performed By: #### 5 7021-8 #### ELLEN MAHAJAN ([id number]) [facility] ([facility]) [address] [place] [address] 65294 Hemoglobin (Bld) [Mass/Vol] 13.8 g/dL Normal 13.5-17.5 [facility] Comment on above: Performed By: #### 5 7021-8 #### ELLEN MAHAJAN ([id number]) [facility] ([facility]) [address] [place] [address] 50855 Immature granulocytes (Bld) [#/Vol] 0.01 x10*3/uL Normal 0.00-0.50 [facility] Comment on above: Performed By: #### 5 7021-8 #### ELLEN MAHAJAN ([id number]) [facility] ([facility]) [address] [place] [address] 41963 Immature granulocytes/100 WBC (Bld) 0.2 % Normal 0.0-0.9 [facility] Comment on above: Result Comment: Lorin ture Granulocyte Count (IG) includes promyelocytes, myelocytes and metamyelocytes but does not include bands. Percent differential counts (%) should be interpreted in the context of the absolute cell counts (cells/UL). Performed By: #### 5 7021-8 #### ELLEN MAHAJAN ([id number]) [facility] ([facility]) [address] [place] [address] 13937 Lymphocytes (Bld) [#/Vol] 2.04 x10*3/uL Normal 0.80-3.00 [facility] Comment on above: Performed By: #### 5 7021-8 #### ELLEN MAHAJAN ([id number]) [facility] ([facility]) [address] [place] [address] 81122 Lymphocytes/100 WBC (Bld) 33.0 % Normal 13.0-44.0 [facility] Comment on above: Performed By: #### 5 7021-8 #### ELLEN MAHAJAN ([id number]) [facility] ([facility]) [address] [place] [address] MCH (RBC) [Entitic mass] 28.5 pg Normal 26.0-34.0 [facility] Comment on above: Performed By: #### 5 7021-8 #### ELLEN MAHAJAN ([id number]) [facility] ([facility]) [address] [place] [address] MCHC (RBC) [Mass/Vol] 32.9 g/dL Normal 32.0-36.0 [facility] Comment on above: Performed By: #### 5 7021-8 #### ELLEN MAHAJAN ([id number]) [facility] ([facility]) [address] [place] [address] MCV (RBC) [Entitic vol] 87 fL Normal 80-100 [facility] Comment on above: Performed By: #### 5 7021-8 #### ELLEN MAHAJAN ([id number]) [facility] ([facility]) [address] [place], [place] [address] Monocytes (Bld) [#/Vol] 0.70 x10*3/uL Normal 0.05-0.80 [facility] Comment on above: Performed By: #### 5 7021-8 #### ELLEN MAHAJAN ([id number]) [facility] ([facility]) [address] [place] [address] 05016 Monocytes/100 WBC (Bld) 11.3 % Normal 2.0-10.0 [facility] Comment on above: Performed By: #### 5 7021-8 #### ELLEN MAHJAAN ([id number]) [facility] ([facility]) [address] [place] [address] 97202 Neutrophils (Bld) [#/Vol] 3.29 x10*3/uL Normal 1.60-5.50 [facility] Comment on above: Result Comment: Perc ent differential counts (%) should be interpreted in the context of the absolute cell counts (cells/uL). Performed By: #### 5 7021-8 #### ELLEN MAHAJAN ([id number]) [facility] ([facility]) [address] [place] [address] 08909 Neutrophils/100 WBC (Bld) 53.3 % Normal 40.0-80.0 [facility] Comment on above: Performed By: #### 5 7021-8 #### ELLEN MAHAJAN ([id number]) [facility] ([facility]) [address] [place] [address] Nucleated RBC/100 WBC (Bld) [Ratio] 0.0 /100 WBCs Normal 0.0-0.0 [facility] Comment on above: Performed By: #### 5 7021-8 #### ELLEN MAHAJAN ([id number]) [facility] ([facility]) [address] [place] [address] 41838 Platelets (Bld) [#/Vol] 174 x10*3/uL Normal 150-450 [facility] Comment on above: Performed By: #### 5 7021-8 #### ELLEN MAHAJAN ([id number]) [facility] ([facility]) [address] [place] [address] 90220 RBC (Bld) [#/Vol] 4.84 x10*6/uL Normal 4.50-5.90 [facility] Comment on above: Performed By: #### 5 7021-8 #### ELLEN MAHAJAN ([id number]) [facility] ([facility]) [address] [place] [address] 46477 WBC (Bld) [#/Vol] 6.2 x10*3/uL Normal 4.4-11.3 [facility] Comment on above: Performed By: #### 5 7021-8 #### ELLEN MAHAJAN ([id number]) [facility] ([facility]) [address] [place] [address] ABDOMEN PELVIS WO IV CONT [facility] 04-23-2025 CT ABDOMEN PELVIS WO IV CONTRAST Interpreted By: Remy Ernst, STUDY: CT ABDOMEN PELVIS WO IV CONTRAST; 04/23/2025 11:43 pm INDICATION: Signs/Symptoms:Nausea vomiting, elevated LFTs. COMPARISON: CT abdomen and pelvis dated 01/25/2014 ACCESSION NUMBER(S): [id number] ORDERING CLINICIAN: JUSTINA KIM TECHNIQUE: CT of [...] Remy Ernst 04/24/2025 12:23 AM Dictation workstation: [id number] Normal [facility] CT Abdomen WO contraston Radiology Study observation (narrative) [facility] Work Phone: Coagulation surface inducedo n 04-23-2025 aPTT Coag (PPP) [Time] 31 s Normal 26-36 [facility] Comment on above: Order Comment: The A PTT is no longer used for monitoring Unfractionated Heparin Therapy. For monitoring Heparin Therapy, use the Heparin Assay. Performed By: #### 1 4979-9 #### HUGHES ZAINA ([id number]) [facility] ([facility]) [address] [place] [address] Coagulation tissue factor in ducedon 04-23-2025 PT Coag (PPP) [Time] 10.9 s Normal 9.8-12.4 [facility] Comment on above: Performed By: #### 5 902-2 #### ELLEN MAHAJAN ([id number]) [facility] ([facility]) [address] [place] [address] Hepatic function 2000 panelo n 04-23-2025 Albumin BCP dye [Mass/Vol] 4 g/dL 3.4 - 5.0 g/dL [facility] ALP [Catalytic activity/Vol] 83 U/L 33 - 136 U/L [facility] ALT With P-5'-P [Catalytic activity/Vol] 69 U/L High 10 - 52 U/L [facility] Comment on above: Patients treated wit h Sulfasalazine may generate falsely decreased results for ALT. AST With P-5'-P [Catalytic activity/Vol] 113 U/L High 9 - 39 U/L [facility] Bilirubin [Mass/Vol] 0.3 mg/dL 0.0 - 1 .2 mg/dL [facility] Bilirubin.direct [Mass/Vol] 0.1 mg/dL 0.0 - 0.3 mg/dL [facility] Interpretation and review of laboratory results Abnormal [facility] Protein [Mass/Vol] 6.4 g/dL 6.4 - 8.2 g/dL [facility] Albumin BCP dye [Mass/Vol] 4.0 g/dL Normal 3.4-5.0 [facility] Comment on above: Performed By: #### 2 4325-3 #### ELLEN MAHAJAN ([id number]) [facility] ([facility]) [address] [place] [address] ALP [Catalytic activity/Vol] 83 U/L Normal 33-136 [facility] Comment on above: Performed By: #### 2 4325-3 #### ELLEN MAHAJAN ([id number]) [facility] ([facility]) [address] [place] [address] ALT With P-5'-P [Catalytic activity/Vol] 69 U/L High 10-52 [facility] Comment on above: Result Comment: Joanie ents treated with Sulfasalazine may generate falsely decreased results for ALT. Performed By: #### 2 4325-3 #### ELLEN MAHAJAN ([id number]) [facility] ([facility]) [address] [place] [address] AST With P-5'-P [Catalytic activity/Vol] 113 U/L High 9-39 [facility] Comment on above: Performed By: #### 2 4325-3 #### ELLEN MAHAJAN ([id number]) [facility] ([facility]) [address] [place] [address] 23621 Bilirubin [Mass/Vol] 0.3 mg/dL Normal 0.0-1.2 [facility] Comment on above: Performed By: #### 2 4325-3 #### ELLEN MAHAJAN ([id number]) [facility] ([facility]) [address] [place] [address] 01411 Bilirubin.direct [Mass/Vol] 0.1 mg/dL Normal 0.0-0.3 [facility] Comment on above: Performed By: #### 2 4325-3 #### ELLEN MAHAJAN ([id number]) [facility] ([facility]) [address] [place] [address] 30170 Protein [Mass/Vol] 6.4 g/dL Normal 6.4-8.2 [facility] Comment on above: Performed By: #### 2 4325-3 #### ELLEN MAHAJAN ([id number]) [facility] ([facility]) [address] [place] [address] 92955 Lipaseon 04-23-2025 Lipase [Catalytic activity/Vol] 51 U/L 9 - 82 U/L [facility] Comment on above: Q-qdnvra-k-benzoquin one imine (metabolite of Acetaminophen)will generate erroneously low results in samples for patients that have taken toxic doses of acetaminophen. Lipase [Catalytic activity/V ol]on 04-23-2025 Interpretation and review of laboratory results Normal [facility] Venipuncture immediately after or during the administration of Metamizole may lead to falsely low results. Testing should be performed immediately prior to Metamizole dosing. [facility] No Panel Informationon 04-23 [facility] Interpretation and review of laboratory results Normal [facility] PT Coag (PPP) [Time]on 04-23 INR Coag (PPP) [Relative time] 1 {INR} 0.9 - 1.1 [facility] INR Coag (PPP) [Relative time] 1.0 Normal 0.9-1.1 [facility] Comment on above: Performed By: #### 5 902-2 #### ELLEN MAHAJAN ([id number]) [facility] ([facility]) [address] [place] [address] Protime-INRon 04-23-2025 PT Coag (PPP) [Time] 10.9 s [facility] Triacylglycerol lipaseon Lipase [Catalytic activity/Vol] 51 U/L Normal 9-82 [facility] Comment on above: Order Comment: Venip uncture immediately after or during the administration of Metamizole may lead to falsely low results. Testing should be performed immediately prior to Metamizole dosing. Result Comment: N-ac chlf-s-rjtlfhtwnqlr imine (metabolite of Acetaminophen)will generate erroneously low results in samples for patients that have taken toxic doses of acetaminophen. Performed By: #### 3 040-3 #### ELLEN MAHAJAN ([id number]) [facility] ([facility]) [address] [place] [address] Tropinin I.cardiac panel Hig h sensitivity methodon 04-23-2025 Interpretation and review of laboratory results Normal [facility] Less than 99th percentile of normal [...] performed using a different testing methodology at [facility] than at [facility]. Direct result comparisons should only be made within the same method. [facility] Troponin I, High Sensitivity , Initialon 04-23-2025 Tropinin I.cardiac panel High sensitivity method 5 ng/L 0 - 20 ng/L [facility] Troponin I.cardiac panelon 0 04-23-2025 Tropinin I.cardiac panel High sensitivity method 5 ng/L Normal 0-20 [facility] Comment on above: Order Comment: Less than [...] performed using a different testing methodology at [facility] than at [facility]. Direct result comparisons should only be made within the same method. Performed By: #### 8 9577-1 #### HUGHES ZAINA ([id number]) [facility] ([facility]) [address] [place] [address] Tropinin I.cardiac panel High sensitivity method 5 ng/L Normal 0-20 [facility] Comment on above: Order Comment: Less than [...] performed using a different testing methodology at [facility] than at other [facility]. Direct result comparisons should only be made within the same method. Performed By: #### 8 9577-1 #### HUGHES ZAINA ([id number]) [facility] ([facility]) [address] [place] [address] XR CHEST 1 VIEWon 04-23-2025 XR CHEST 1 VIEW STUDY: Chest Radiograph; 04/23/2025 10:32 PM. INDICATION: Chest pain. COMPARISON: None ACCESSION NUMBER(S): [id number] ORDERING CLINICIAN: JUSTINA KIM TECHNIQUE: Frontal chest [...] acute cardiopulmonary disease. Signed by Rom Torres [facility] XR Chest Single viewon 04-23 No acute cardiopulmonary disease. Signed by Rom Torres TELERADIOLOGY STUDY: Chest Radiograph; 04/23/2025 10:32 PM. INDICATION: Chest pain. COMPARISON: None ACCESSION NUMBER(S): [id number] ORDERING CLINICIAN: JUSTINA KIM TECHNIQUE: Frontal chest [...] INDICATION: Chest pain. COMPARISON: None ACCESSION NUMBER(S): [id number] ORDERING CLINICIAN: JUSTINA KIM TECHNIQUE: Frontal chest [...] cardiopulmonary disease. Signed by Rom Torres [facility] Work Phone: Radiology Study observation (narrative) [facility] Work Phone: XR Chest Single viewOrdered By: Rom Torres on 04-23-2025 [facility] Work Phone: aPTT Coag (PPP) [Time]on The APTT is no longe r used for monitoring Unfractionated Heparin Therapy. For monitoring Heparin Therapy, use the Heparin Assay. [facility] CNOVon 03-18-2025 CNOV Office Visit (INTMWS ) SUBHASHHOLLIE ([id number]) 1950 M Date Time Provider Department 03/18/25 [...] PCP - General (Internal Medicine) Khadijah Raman APRN.GEOTECHNICAL FIELD TECHNICIAN as Tailor Helper (Internal Medicine) Isael Lebron APRN, CNP (Lung [...] review all the medicines you take, even zylx-cco-lmlakjm medicines. As you get older, the way [...] all staircases. (more content not included)... Normal [facility] CBC panel Auto (Bld)on 03-15 Erythrocyte distribution width (RBC) [Ratio] 13.4 % Normal 11.5-15.0 [facility] Comment on above: Order Comment: Speci men Type: BLOOD SPECIMEN Ordering Facility: [facility] Address: [address] [place] [address] Performed By: #### 5 8410-2 #### [facility] CLIA [id number] [address] [place] [address] [place] [address] [place] Hematocrit (Bld) [Volume fraction] 44.0 % Normal 39.0-51.0 [facility] Comment on above: Order Comment: Speci men Type: BLOOD SPECIMEN Ordering Facility: [facility] Address: [address] [place] [address] Performed By: #### 5 8410-2 #### [facility] CLIA [id number] [address] [place] [address] [place] Hemoglobin (Bld) [Mass/Vol] 14.1 g/dL Normal 13.0-17.0 [facility] Comment on above: Order Comment: Speci men Type: BLOOD SPECIMEN Ordering Facility: [facility] Address: [address] [place] [address] Performed By: #### 5 8410-2 #### [facility] CLIA [id number] [address] [place] [address] [place] MCH (RBC) [Entitic mass] 27.6 pg Normal 26.0-34.0 [facility] Comment on above: Order Comment: Speci men Type: BLOOD SPECIMEN Ordering Facility: [facility] Address: [address] [place] [address] Performed By: #### 5 8410-2 #### [facility] CLIA [id number] [address] [place] [address] [place] MCHC (RBC) [Mass/Vol] 32.0 g/dL Normal 30.5-36.0 [facility] Comment on above: Order Comment: Speci men Type: BLOOD SPECIMEN Ordering Facility: [facility] Address: [address] [place] [address] Performed By: #### 5 8410-2 #### [facility] CLIA [id number] [address] [place] [address] [place] MCV (RBC) [Entitic vol] 86.1 fL Normal 80.0-100.0 [facility] Comment on above: Order Comment: Speci men Type: BLOOD SPECIMEN Ordering Facility: [facility] Address: [address] [place] [address] Performed By: #### 5 8410-2 #### [facility] CLIA [id number] [address] [place] [address] [place] Nucleated RBC (Bld) [#/Vol] 10*3/uL Normal <0.01 [facility] Comment on above: Order Comment: Speci men Type: BLOOD SPECIMEN Ordering Facility: [facility] Address: [address] [place] [address] Performed By: #### 5 8410-2 #### [facility] CLIA [id number] [address] [place], [place] [address] [place] Platelet mean volume (Bld) [Entitic vol] 11.2 fL Normal 9.0-12.7 [facility] Comment on above: Order Comment: Speci men Type: BLOOD SPECIMEN Ordering Facility: [facility] Address: [address] [place] [address] Performed By: #### 5 8410-2 #### [facility] CLIA [id number] [address] [place] [address] [place] Platelets (Bld) [#/Vol] 242 10*3/uL Normal 150-400 [facility] Comment on above: Order Comment: Speci men Type: BLOOD SPECIMEN Ordering Facility: [facility] Address: [address] [place] [address] Performed By: #### 5 8410-2 #### [facility] CLIA [id number] [address] [place], [place] [address] [place] RBC (Bld) [#/Vol] 5.11 10*6/uL Normal 4.20-6.00 [facility] Comment on above: Order Comment: Speci men Type: BLOOD SPECIMEN Ordering Facility: [facility] Address: [address] [place] [address] Performed By: #### 5 8410-2 #### [facility] CLIA [id number] [address] [place], [place] [address] [place] WBC (Bld) [#/Vol] 5.95 10*3/uL Normal 3.70-11.00 [facility] Comment on above: Order Comment: Speci men Type: BLOOD SPECIMEN Ordering Facility: [facility] Address: [address] [place] [address] Performed By: #### 5 8410-2 #### [facility] CLIA [id number] [address] [place] [address] [place] [facility] Comprehensive metabolic 2000 panelon 03-15-2025 Albumin [Mass/Vol] 4.2 g/dL Normal 3.9-4.9 [facility] Comment on above: Order Comment: Speci men Type: BLOOD SPECIMENOrdering Facility: [facility] Address: [address] [place] [address] Performed By: #### 2 4331-1, 68949-1 ####[facility] [id number] [place] [address] [place] ALP [Catalytic activity/Vol] 94 U/L Normal 38-113 [facility] Comment on above: Order Comment: Speci men Type: BLOOD SPECIMENOrdering Facility: [facility] Address: [address] [place] [address] Performed By: #### 2 4331-1, 91712-8 ####[facility] [id number] [place] [address] [place] ALT [Catalytic activity/Vol] 28 U/L Normal 10-54 [facility] Comment on above: Order Comment: Speci men Type: BLOOD SPECIMENOrdering Facility: [facility] Address: [address] [place] [address] Performed By: #### 2 4331-1, 78219-9 ####[facility] [id number] [place] [id number] [place] Anion gap [Moles/Vol] 9 mmol/L Normal 8-15 [facility] Comment on above: Order Comment: Speci men Type: BLOOD SPECIMENOrdering Facility: [facility] Address: [address] [place], [place] [address] Performed By: #### 2 4331-1, 32898-0 ####[facility] [id number] [address] [address] [place] AST [Catalytic activity/Vol] 20 U/L Normal 14-40 [facility] Comment on above: Order Comment: Speci men Type: BLOOD SPECIMENOrdering Facility: [facility] Address: [address] [place], [place] [address] Performed By: #### 2 4331-1, 42194-9 ####[facility] [id number] [place] [address] [place] Bilirubin [Mass/Vol] 0.3 mg/dL Normal 0.2-1.3 [facility] Comment on above: Order Comment: Speci men Type: BLOOD SPECIMENOrdering Facility: [facility] Address: [address] [place], [place] [address] Performed By: #### 2 4331-1, 50985-5 ####[facility] [id number] [place] [id number] [place] Calcium [Mass/Vol] 9.6 mg/dL Normal 8.5-10.2 [facility] Comment on above: Order Comment: Speci men Type: BLOOD SPECIMENOrdering Facility: [facility] Address: [address] [place], [place] [address] Performed By: #### 2 4331-1, 61107-0 ####[facility] [id number] [place] [address] [place] Chloride [Moles/Vol] 104 mmol/L Normal 98-107 [facility] Comment on above: Order Comment: Speci men Type: BLOOD SPECIMENOrdering Facility: [facility] Address: [address] [place], [place] [address] Performed By: #### 2 4331-1, 65877-5 ####[facility] [id number] [address] [address] [place] CO2 [Moles/Vol] 26 mmol/L Normal 22-30 [facility] Comment on above: Order Comment: Speci men Type: BLOOD SPECIMENOrdering Facility: [facility] Address: [address] [place] [address] Performed By: #### 2 4331-1, 03820-2 ####[facility] [id number] [place] [address] [place] Creatinine [Mass/Vol] 1.44 mg/dL High 0.73-1.22 [facility] Comment on above: Order Comment: Speci men Type: BLOOD SPECIMENOrdering Facility: [facility] [facility] Address: [address] [place] [address] Performed By: #### 2 4331-1, 00101-1 ####[facility] LABIA [id number] [place] [id number] [place] Creatinine and Glomerular filtration rate.predicted panel (S/P/Bld) 52 mL/min/1.73m??? Low >=60 [facility] Comment on above: Order Comment: Speci men Type: BLOOD SPECIMENOrdering Facility: [facility] Address: [address] [place] [address] Result Comment: Gayatri mated Glomerular Filtration Rate [...] actual GFR. Performed By: #### 2 4331-1, 82753-9 ####[facility] LABIA [id number] [address] [address] [place] Glucose [Mass/Vol] 113 mg/dL High 74-99 [facility] Comment on above: Order Comment: Speci men Type: BLOOD SPECIMENOrdering Facility: [facility] Address: [address] [place] [address] Result Comment: The [place] Diabetes Association (ADA) provides guidance for cutoff [...] Standards of Medical Care in Diabetes 2016, [place] [employer] Association. Diabetes Care. 2016.39(Suppl 1). Performed By: #### 2 4331-1, 97507-1 ####[facility] LABIA [id number] [place] [id number] [place] Potassium [Moles/Vol] 4.5 mmol/L Normal 3.7-5.1 [facility] Comment on above: Order Comment: Speci men Type: BLOOD SPECIMENOrdering Facility: [facility] Address: [address] [place] [address] Performed By: #### 2 4331-1, 00750-1 ####[facility] LABCLIA [id number] [place] [id number] [place] Protein [Mass/Vol] 7.0 g/dL Normal 6.3-8.0 [facility] Comment on above: Order Comment: Speci men Type: BLOOD SPECIMENOrdering Facility: [facility] Address: [address] [place] [address] Performed By: #### 2 4331-1, 99120-6 ####[facility] LABCLIA [id number] [address] [address] [place] Sodium [Moles/Vol] 139 mmol/L Normal 136-144 [facility] Comment on above: Order Comment: Speci men Type: BLOOD SPECIMENOrdering Facility: [facility] Address: [address] [place] [address] Performed By: #### 2 4331-1, 61177-3 ####[facility] LABIA [id number] [place] [id number] [place] Urea nitrogen [Mass/Vol] 18 mg/dL Normal 9-24 [facility] Comment on above: Order Comment: Carmelinai men Type: BLOOD SPECIMENOrdering Facility: [facility] Address: [address] [place] [address] Performed By: #### 2 4331-1, 27246-3 ####[facility] [id number] [place] [address] [place] HbA1c (Bld)on 03-15-2025 Average glucose Estimated from glycated hemoglobin (Bld) [Mass/Vol] 128 mg/dL Normal [facility] Comment on above: Order Comment: Bird men Type: BLOOD SPECIMENOrdering Facility: [facility] Address: [address] [place] [address] Result Comment: eAG: (Estimated average glucose) is a calculated value from HgbA1c and is signs and displays sales representative of the average blood glucose level in the last 2-3 month period. Performed By: #### 5 5454-3 ####[facility] [id number] [place] [id number] [place] HbA1c (Bld) [Mass fraction] 6.1 % High 4.3-5.6 [facility] Comment on above: Order Comment: Carmelinai men Type: BLOOD SPECIMENOrdering Facility: [facility] Address: [address] [place] [address] Result Comment: [place] Diabetes Association guidelines indicate that patients with HgbA1c in the range 5.7-6.4% are at increased risk for development of diabetes, and intervention by lifestyle modification may be beneficial. HgbA1c greater or equal to 6.5% is considered diagnostic of diabetes. Performed By: #### 5 5454-3 ####[facility] LABCLIA [id number] [place] [address] [place] Lipid 1996 panelon 5 Cholesterol [Mass/Vol] 161 mg/dL Normal <200 [facility] Comment on above: Order Comment: Speci men Type: BLOOD SPECIMENOrdering Facility: [facility] Address: [address] [place] [address] Result Comment: <200 mg/dL, Desirable 200-239 mg/dL, Borderline high >239 mg/dL, High Performed By: #### 2 4331-1, 67366-3 ####[facility] LABIA [id number] [address] Cholesterol in HDL [Mass/Vol] 41 mg/dL Normal >39 [facility] Comment on above: Order Comment: Bird reynoso Type: BLOOD SPECIMENOrdering Facility: [facility] Address: [address] [place] [address] Result Comment: 40-5 9 mg/dL, Acceptable >59 mg/dL, High: Negative risk factor for coronary heart disease <40 mg/dL, Low: Positive risk factor for coronary heart disease Performed By: #### 2 4331-1, 97733-2 ####[facility] LABIA [id number] [address] OF [facility] Cholesterol in LDL [Mass/Vol] 98 mg/dL Normal <100 [facility] Comment on above: Order Comment: Bird [facility] Type: BLOOD SPECIMENOrdering Facility: [facility] Address: [address] [place] [address] Result Comment: <100 mg/dL, Optimal 100-129 mg/dL, Near optimal/above optimal 130-159 mg/dL, Borderline high 160-189 mg/dL, High >189 mg/dL, Very high Secondary prevention optimal LDL Cholesterol levels are recommended to be <70 mg/dL LDL cholesterol is calculated using the Cobian-NIH equation. Performed By: #### 2 4331-1, 23761-9 ####[facility] LABCLIA [id number] [address] [address] [place] Cholesterol in LDL/Cholesterol in HDL [Mass ratio] 2.39 {ratio} Normal <2.54 [facility] Comment on above: Order Comment: Speci men Type: BLOOD SPECIMENOrdering Facility: [facility] Address: [address] [place] [address] Result Comment: Refe rence: 1. National Cholesterol Education Program ATP III Guideline At-A-Glance Quick Desk Reference: National Heart, Lung, and Blood [place]. National Institutes of Health. 2001: NIH Publication No. 01-3305. 2. An International Atherosclerosis Society position paper: global recommendations for the management of dyslipidemia: executive summary, Atherosclerosis. 2014: 232(2):410-413. Performed By: #### 2 4331-1, 15382-9 ####[facility] LABCLIA [id number] [address] [address] [place] Cholesterol in VLDL [Mass/Vol] 20 mg/dL Normal <30 [facility] Comment on above: Order Comment: Speci men Type: BLOOD SPECIMENOrdering Facility: [facility] Address: [address] [place] [address] Performed By: #### 2 4331-1, 35236-0 ####[facility] LABCLIA [id number] [address] [address] [place] Cholesterol non HDL [Mass/Vol] 120 mg/dL Normal <130 [facility] Comment on above: Order Comment: Speci men Type: BLOOD SPECIMENOrdering Facility: [facility] Address: [address] [place] [address] Result Comment: <130 mg/dL, Optimal 130-159 mg/dL, Near optimal/above optimal 160-189 mg/dL, Borderline high 190-219 mg/dL, High >219 mg/dL, Very high Secondary prevention optimal non HDL Cholesterol levels are recommended to be <100 mg/dL Performed By: #### 2 4331-1, ####[facility] LABCLIA [id number] [address] [address] [place] Cholesterol.total/Chol esterol in HDL [Mass ratio] 3.93 {ratio} Normal <5.10 [facility] Comment on above: Order Comment: Speci men Type: BLOOD SPECIMENOrdering Facility: [facility] Address: [address] [place] [address] Performed By: #### 2 4331-1, ####[facility] LABIA [id number] [place] [id number] [place] FASTING TIME 15 hrs Normal [facility] Comment on above: Order Comment: Speci men Type: BLOOD SPECIMENOrdering Facility: [facility] Address: [address] [place] [address] Performed By: #### 2 4331-1, ####[facility] LABIA [id number] [place] [id number] [place] Triglyceride [Mass/Vol] 123 mg/dL Normal <150 [facility] Comment on above: Order Comment: Speci men Type: BLOOD SPECIMENOrdering Facility: [facility] Address: [address] [place] [address] Result Comment: <150 mg/dL, Normal 150-199 mg/dL, Borderline high 200-499 mg/dL, High >499 mg/dL, Very high Performed By: #### 2 4331-1, ####[facility] LABIA [id number] [address] [address] [place] 03-14-2025 EILEEN Telephone (FAMPWS) SUBHASH,HOLLIE Robles ([id number]) 1950 M Date Time Provider Department 03/14/25 [...] labs done then since they live in [place]. Call when labs have been ordered. MARCO A Braden Helen E, LPN 03/14/2025 2:37 PM Signed notified fasting labs have been ordered. Manda Gr LPN Allergies As of Date: 03/14/2025 (No Known Allergies) Date Reviewed: 06/14/2024 Reviewed by: Isael Lebron APRN.GEOTECHNICAL FIELD TECHNICIAN - Fully Assessed Reason for Visit: Lab Orders [1688] Visit Diagnoses:Impaired fasting glucose [R73.01] Stage 3a chronic kidney disease (HCC) [N18.31] Hyperlipidemia, unspecified hyperlipidemia type [E78.5] Order(s):HEMOGLOBIN A1C [UJXLS5B] Order #: [id number] FUTURE COMPREHENSIVE METABOLIC PANEL [SQCMP] Order #: [id number] FUTURE LIPID PANEL, FASTING [SQLIPB] Order #: [id number] FUTURE COMPLETE BLOOD COUNT [SQCBC] Order #: [id number] FUTURE Prescriptions as of 03/14/2025 - simvastatin [...] Status:Closed by MANDA GR on 03/14/25 Normal [facility] Basic Metabolic Profile (BMP )on 02-28-2025 BUN Normal - [facility] Comment on above: Result Comment: Canc elled via OM: Order cancelled - Patient discharged Performed By: #### L 100.0100, L500.2500 ####[facility] [address] [place], [address] BUN/CRE Normal 10-20 [facility] Comment on above: Result Comment: Canc elled via OM: Order cancelled - Patient discharged Performed By: #### L 100.0100, L500.2500 ####[facility] [address] [place], [address] Calcium Normal 7.6-11.0 [facility] Comment on above: Result Comment: Canc elled via OM: Order cancelled - Patient discharged Performed By: #### L 100.0100, L500.2500 ####[facility] [address] [place], [address] CL Normal 98-108 [facility] Comment on above: Result Comment: Canc elled via OM: Order cancelled - Patient discharged Performed By: #### L 100.0100, L500.2500 ####[facility] [address] [place], [address] CO2 Normal 21.0-32.0 [facility] Comment on above: Result Comment: Canc elled via OM: Order cancelled - Patient discharged Performed By: #### L 100.0100, L500.2500 ####[facility] [address] [place], [address] CREAT,SERUM Normal 0.70-1.20 [facility] Comment on above: Result Comment: Canc elled via OM: Order cancelled - Patient discharged Performed By: #### L 100.0100, L500.2500 ####[facility] [address] [place], [address] eGFR Normal >60 [facility] Comment on above: Result Comment: Canc elled via OM: Order cancelled - Patient discharged Performed By: #### L 100.0100, L500.2500 ####[facility] [address] [place], [address] GAP Normal 5-15 [facility] Comment on above: Result Comment: Canc elled via OM: Order cancelled - Patient discharged Performed By: #### L 100.0100, L500.2500 ####[facility] [address] [place], [address] GLU Normal 70-99 [facility] Comment on above: Result Comment: Canc elled via OM: Order cancelled - Patient discharged Performed By: #### L 100.0100, L500.2500 ####[facility] [address] [place], [address] Potassium Normal 3.3-5.1 [facility] Comment on above: Result Comment: Canc elled via OM: Order cancelled - Patient discharged Performed By: #### L 100.0100, L500.2500 ####[facility] [address] [place], [address] Basic Metabolic Profile (BMP) Normal 133-145 [facility] Comment on above: Result Comment: Canc elled via OM: Order cancelled - Patient discharged Performed By: #### L 100.0100, L500.2500 ####[facility] [address] [place], [address] CBC W/Diff, Automatedon - Absolute Neut Normal 2.0-7.7 [facility] Comment on above: Result Comment: Canc elled via OM: Order cancelled - Patient discharged Performed By: #### L 100.0100, L500.2500 ####[facility] [address] [place], [address] HCT Normal 40-54 [facility] Comment on above: Result Comment: Canc elled via OM: Order cancelled - Patient discharged Performed By: #### L 100.0100, L500.2500 ####[facility] [address] [place], [address] HGB Normal 13.0-16.5 [facility] Comment on above: Result Comment: Canc elled via OM: Order cancelled - Patient discharged Performed By: #### L 100.0100, L500.2500 ####[facility] [address] [place], [address] MCH Normal 27.0-32.0 [facility] Comment on above: Result Comment: Canc elled via OM: Order cancelled - Patient discharged Performed By: #### L 100.0100, L500.2500 ####[facility] [address] [place], [address] MCHC Normal 32-36 [facility] Comment on above: Result Comment: Canc elled via OM: Order cancelled - Patient discharged Performed By: #### L 100.0100, L500.2500 ####[facility] [address] [place], [address] MCV Normal 80-94 [facility] Comment on above: Result Comment: Canc elled via OM: Order cancelled - Patient discharged Performed By: #### L 100.0100, L500.2500 ####[facility] [address] [place], [address] NEUT% Normal 47-70 [facility] Comment on above: Result Comment: Canc elled via OM: Order cancelled - Patient discharged Performed By: #### L 100.0100, L500.2500 ####[facility] [address] [place], [address] PLT Normal 150-450 [facility] Comment on above: Result Comment: Canc elled via OM: Order cancelled - Patient discharged Performed By: #### L 100.0100, L500.2500 ####[facility] [address] [place], [address] RBC Normal 4.6-6.2 [facility] Comment on above: Result Comment: Canc elled via OM: Order cancelled - Patient discharged Performed By: #### L 100.0100, L500.2500 ####[facility] [address] [place], [address] RDW CV Normal 11.6-14.6 [facility] Comment on above: Result Comment: Canc elled via OM: Order cancelled - Patient discharged Performed By: #### L 100.0100, L500.2500 ####[facility] [address] [place], [address] RDW SD Normal 35.1-43.9 [facility] Comment on above: Result Comment: Canc elled via OM: Order cancelled - Patient discharged Performed By: #### L 100.0100, L500.2500 ####[facility] [address] [place], [address] WBC Normal 4.4-11.0 [facility] Comment on above: Result Comment: Canc elled via OM: Order cancelled - Patient discharged Performed By: #### L 100.0100, L500.2500 ####[facility] [address] [place], [address] Absolute lymphocyte countOrd ered By: Los Romero on 02-27-2025 Lymphocytes Auto (Unsp spec) [#/Vol] 1.54 10*3/uL 0.83-4.51 [facility] Absolute neutrophil countOrd ered By: Losmichelle Romero on 02-27-2025 Neutrophils (Bld) [#/Vol] 5.1 10*3/uL 2.0-7.7 [facility] Anion gap in Serum or Plasma Ordered By: Los Romero on 02-27-2025 Anion gap [Moles/Vol] 8 mmol/L 5-15 [facility] Automated lymphocyte count a s percentage of total leukocytesOrdered By: Los Romero on 02-27-2025 Lymphocytes/100 WBC Auto (Unsp spec) 19.8 % 19-41 [facility] BUN/creatinine ratioOrdered By: Los Romero on 02-27-2025 Urea nitrogen/Creatinine [Mass ratio] 8.4 mg/mg Low 10-20 [facility] Basic Metabolic Profile (BMP )on 02-27-2025 BUN/CRE 8.4 RATIO Low 10-20 [facility] Comment on above: Performed By: #### L 100.0100, L500.2500 #### [facility] [address] [place], [address] Calcium [Mass/Vol] 7.9 mg/dL Normal 7.6-11.0 [facility] Comment on above: Performed By: #### L 100.0100, L500.2500 #### [facility] [address] [place], [address] Chloride [Moles/Vol] 112 mmol/L High 98-108 [facility] Comment on above: Performed By: #### L 100.0100, L500.2500 #### [facility] [address] [place], [address] CO2 [Moles/Vol] 20.5 mmol/L Low 21.0-32.0 [facility] Comment on above: Performed By: #### L 100.0100, L500.2500 #### [facility] [address] [place], [address] Creatinine [Mass/Vol] 1.48 mg/dL High 0.70-1.20 [facility] Comment on above: Performed By: #### L 100.0100, L500.2500 #### [facility] [address] [place], [address] ECRCL 54.62 ml/min Normal 50-250 [facility] Comment on above: Performed By: #### L 100.0100, L500.2500 #### [facility] [address] [place], [address] GAP 8 Normal 5-15 [facility] Comment on above: Performed By: #### L 100.0100, L500.2500 #### [facility] [address] [place], [address] GFR/1.73 sq M.predicted among non-blacks MDRD (S/P/Bld) [Vol rate/Area] 50 mL/min/{1.73_m2} Low >60 [facility] Comment on above: Result Comment: mL/m in/1.73m2 CKD-EPI Creatinine Equation (2020) Performed By: #### L 100.0100, L500.2500 #### [facility] [address] [place], [address] Glucose [Mass/Vol] 118 mg/dL High 70-99 [facility] Comment on above: Performed By: #### L 100.0100, L500.2500 #### [facility] [address] [place], [address] Potassium [Moles/Vol] 3.7 mmol/L Normal 3.3-5.1 [facility] Comment on above: Performed By: #### L 100.0100, L500.2500 #### [facility] [address] [place], [address] Sodium [Moles/Vol] 141 mmol/L Normal 133-145 [facility] Comment on above: Performed By: #### L 100.0100, L500.2500 #### [facility] [address] [place], [address] Urea nitrogen [Mass/Vol] 12 mg/dL Normal 4-19 [facility] Comment on above: Performed By: #### L 100.0100, L500.2500 #### [facility] [address] [place], [address] Basophil percentageOrdered B y: Los Romero on 02-27-2025 Basophils/100 WBC (Bld) 0.4 % 0-1 [facility] CBC W/Diff, Automatedon 02-15 Absolute Lymph 1.54 X10 3/uL Normal 0.83-4.51 [facility] Comment on above: Performed By: #### L 100.0100, L500.2500 #### [facility] [address] [place], [address] Absolute Neut 5.1 X10 3/uL Normal 2.0-7.7 [facility] Comment on above: Performed By: #### L 100.0100, L500.2500 #### [facility] [address] [place], [address] Basophils/100 WBC (Bld) 0.4 % Normal 0-1 [facility] Comment on above: Performed By: #### L 100.0100, L500.2500 #### [facility] [address] [place], [address] Eosinophils/100 WBC (Bld) 1.8 % Normal 0-5 [facility] Comment on above: Performed By: #### L 100.0100, L500.2500 #### [facility] [address] [place], [address] Erythrocyte distribution width (RBC) [Ratio] 13.2 % Normal 11.6-14.6 [facility] Comment on above: Performed By: #### L 100.0100, L500.2500 #### [facility] [address] [place], [address] Hematocrit (Bld) [Volume fraction] 32.7 % Low 40-54 [facility] Comment on above: Performed By: #### L 100.0100, L500.2500 #### [facility] [address] [place], [address] Hemoglobin (Bld) [Mass/Vol] 10.9 g/dL Low 13.0-16.5 [facility] Comment on above: Performed By: #### L 100.0100, L500.2500 #### [facility] [address] [place], [address] IG% 0.400 Normal 0.0-0.9 [facility] Comment on above: Result Comment: IG% - Immature Granulocytes (promyelocytes, myelocytes and metamyelocytes) > 1% indicates that a LEFT SHIFT is Present. Performed By: #### L 100.0100, L500.2500 #### [facility] [address] [place], [address] Lymphocytes/100 WBC (Bld) 19.8 % Normal 19-41 [facility] Comment on above: Performed By: #### L 100.0100, L500.2500 #### [facility] [address] [place], [address] MCH (RBC) [Entitic mass] 28.3 pg Normal 27.0-32.0 [facility] Comment on above: Performed By: #### L 100.0100, L500.2500 #### [facility] [address] [place], [address] MCHC (RBC) [Mass/Vol] 33.3 g/dL Normal 32-36 [facility] Comment on above: Performed By: #### L 100.0100, L500.2500 #### [facility] [address] [place], [address] MCV (RBC) [Entitic vol] 84.9 fL Normal 80-94 [facility] Comment on above: Performed By: #### L 100.0100, L500.2500 #### [facility] [address] [place], [address] Monocytes/100 WBC (Bld) 12.2 % High 0-10 [facility] Comment on above: Performed By: #### L 100.0100, L500.2500 #### [facility] [address] [place], [address] Neutrophils/100 WBC (Bld) 65.4 % Normal 47-70 [facility] Comment on above: Performed By: #### L 100.0100, L500.2500 #### [facility] [address] [place], [address] Nucleated RBC (Bld) [#/Vol] 0 10*3/uL Normal 0-5 [facility] Comment on above: Performed By: #### L 100.0100, L500.2500 #### [facility] [address] [place], [address] Platelet mean volume (Bld) [Entitic vol] 11.2 fL Normal 6.2-12.0 [facility] Comment on above: Performed By: #### L 100.0100, L500.2500 #### [facility] [address] [place], [address] Platelets (Bld) [#/Vol] 129 10*3/uL Low 150-450 [facility] Comment on above: Performed By: #### L 100.0100, L500.2500 #### [facility] [address] [place], [address] RBC (Bld) [#/Vol] 3.85 10*6/uL Low 4.6-6.2 [facility] Comment on above: Performed By: #### L 100.0100, L500.2500 #### [facility] [address] [place], [address] RDW SD 40.9 fl Normal 35.1-43.9 [facility] Comment on above: Performed By: #### L 100.0100, L500.2500 #### [facility] [address] [place], [address] WBC (Bld) [#/Vol] 7.8 10*3/uL Normal 4.4-11.0 [facility] Comment on above: Performed By: #### L 100.0100, L500.2500 #### [facility] [address] [place], [address] [place] dioxide, total [Moles /volume] in Central venous bloodOrdered By: Los Romero on 02-27-2025 CO2 [Moles/Vol] 20.5 mmol/L Low 21.0-32.0 [facility] Chloride assayOrdered By: Naheed Romero on 02-27-2025 Chloride [Moles/Vol] 112 mmol/L High 98-108 [facility] Eosinophil percentageOrdered By: Los Romero on 02-27-2025 Eosinophils/100 WBC (Bld) 1.8 % 0-5 [facility] Erythrocyte distribution wid th (RBC) [Ratio]Ordered By: Los Romero on 02-27-2025 Erythrocyte distribution width (RBC) [Entitic vol] 40.9 fL 35.1-43.9 [facility] Erythrocyte distribution wid th ratioOrdered By: Los Romero on 02-27-2025 Erythrocyte distribution width (RBC) [Ratio] 13.2 % 11.6-14.6 [facility] Erythrocyte distribution wid th standard deviationOrdered By: Los Romero on 02-27-2025 Erythrocyte distribution width (RBC) [Ratio] 40.9 fl 35.1-43.9 [facility] Estimation of creatinine umang aranceOrdered By: Los Romero on 02-27-2025 Estimated Creatinine Clearance Calc 54.62 ml/min 50-250 [facility] GFR/1.73 sq M.predicted gabi g non-blacks MDRD (S/P/Bld) [Vol rate/Area]Ordered By: Los Romero on 02-27-2025 Estimated GFR (MDRD) Non-Af Amer 50 Low >60 [facility] Comment on above: mL/min/1.73m2 CKD-EP I Creatinine Equation (2020) Glomerular filtration rate ( GFR) estimation/1.73 sq m using serum, plasma, or whole bOrdered By: Los Romero on 02-27-2025 GFR/1.73 sq M.predicted among non-blacks MDRD (S/P/Bld) [Vol rate/Area] 50 mL/min/{1.73_m2} Low >60 [facility] Comment on above: mL/min/1.73m2 CKD-EP I Creatinine Equation (2020) Hematocrit Auto (Bld) [Volum e fraction]Ordered By: Los Romero on 02-27-2025 Hematocrit (Bld) [Volume fraction] 32.7 % Low 40-54 [facility] Hemoglobin measurementOrdere d By: Los Romero on 02-27-2025 Hemoglobin (Bld) [Mass/Vol] 10.9 g/dL Low 13.0-16.5 [facility] Immature granulocytes/100 WB C Auto (Bld)Ordered By: Los Romero on 02-27-2025 Immature granulocytes/100 WBC (Bld) 0.400 % 0.0-0.9 [facility] Comment on above: IG% - Immature Granu locytes (promyelocytes, myelocytes and metamyelocytes) > 1% indicates that a LEFT SHIFT is Present. Lymphocytes Auto (Unsp spec) [#/Vol]Ordered By: Los Romero on 02-27-2025 Lymphocytes (Bld) [#/Vol] 1.54 10*3/uL 0.83-4.51 [facility] Lymphocytes/100 WBC Auto (Un sp spec)Ordered By: Los Romero on 02-27-2025 Lymphocytes/100 WBC (Bld) 19.8 % 19-41 [facility] MCV (mean corpuscular volume ) determinationOrdered By: Los Romero on 02-27-2025 MCV (RBC) [Entitic vol] 84.9 fL 80-94 [facility] Mean corpuscular hemoglobin (MCH) determinationOrdered By: Los Romero on 02-27-2025 MCH (RBC) [Entitic mass] 28.3 pg 27.0-32.0 [facility] Mean corpuscular hemoglobin concentration (MCHC) determinationOrdered By: Los Romero on 02-27-2025 MCHC (RBC) [Mass/Vol] 33.3 g/dL 32-36 [facility] Mean platelet volume determi nationOrdered By: Los Romero on 02-27-2025 Platelet mean volume (Bld) [Entitic vol] 11.2 fL 6.2-12.0 [facility] Monocyte percentageOrdered B y: Los Romero on 02-27-2025 Monocytes/100 WBC (Bld) 12.2 % High 0-10 [facility] Neutrophil percentageOrdered By: Los Romero on 02-27-2025 Neutrophils/100 WBC (Bld) 65.4 % 47-70 [facility] Nucleated red blood cell per centageOrdered By: Los Romero on 02-27-2025 Nucleated RBC/100 WBC (Bld) [Ratio] 0 % 0-5 [facility] Platelet countOrdered By: Naheed Romero on 02-27-2025 Platelets (Bld) [#/Vol] 129 10*3/uL Low 150-450 [facility] Potassium (Unsp spec) [Mass/ Vol]Ordered By: Los Romero on 02-27-2025 Potassium [Moles/Vol] 3.7 mmol/L 3.3-5.1 [facility] Potassium measurement (mass/ volume)Ordered By: Los Romero on 02-27-2025 Potassium (Unsp spec) [Mass/Vol] 3.7 mmol/L 3.3-5.1 [facility] RBC Auto (Bld) [#/Vol]Ordere d By: Los Romero on 02-27-2025 RBC (Bld) [#/Vol] 3.85 10*6/uL Low 4.6-6.2 [facility] Serum creatinine measurement (mass/volume)Ordered By: Los Romero on 02-27-2025 Creatinine [Mass/Vol] 1.48 mg/dL High 0.70-1.20 [facility] Serum glucose measurement (m ass/volume)Ordered By: Los Romero on 02-27-2025 Glucose [Mass/Vol] 118 mg/dL High 70-99 [facility] Serum or plasma calcium rayshawn urement (mass/volume)Ordered By: Los Romero on 02-27-2025 Calcium [Mass/Vol] 7.9 mg/dL 7.6-11.0 [facility] Serum or plasma urea nitroge n measurement (mass/volume)Ordered By: Los Romero on 02-27-2025 Urea nitrogen [Mass/Vol] 12 mg/dL 4-19 [facility] Sodium levelOrdered By: Los Romero on 02-27-2025 Sodium [Moles/Vol] 141 mmol/L 133-145 [facility] White blood cell (WBC) count Ordered By: Los Romero on 02-27-2025 WBC (Bld) [#/Vol] 7.8 10*3/uL 4.4-11.0 [facility] Basic Metabolic Profile (BMP )on 02-26-2025 BUN/CRE 9.7 RATIO Low 10-20 [facility] Comment on above: Performed By: #### L 100.0100, L500.2500 ####[facility] [address] [place], [address] Calcium [Mass/Vol] 8.0 mg/dL Normal 7.6-11.0 [facility] Comment on above: Performed By: #### L 100.0100, L500.2500 ####[facility] [address] [place], [address] Chloride [Moles/Vol] 109 mmol/L High 98-108 [facility] Comment on above: Performed By: #### L 100.0100, L500.2500 ####[facility] [address] [place], [address] CO2 [Moles/Vol] 20.2 mmol/L Low 21.0-32.0 [facility] Comment on above: Performed By: #### L 100.0100, L500.2500 ####[facility] [address] [place], [address] Creatinine [Mass/Vol] 1.54 mg/dL High 0.70-1.20 [facility] Comment on above: Performed By: #### L 100.0100, L500.2500 ####[facility] [address] [place], [address] ECRCL 52.50 ml/min Normal 50-250 [facility] Comment on above: Performed By: #### L 100.0100, L500.2500 ####[facility] [address] [place], [address] GAP 10 Normal 5-15 [facility] Comment on above: Performed By: #### L 100.0100, L500.2500 ####[facility] [address] [place], [address] GFR/1.73 sq M.predicted among non-blacks MDRD (S/P/Bld) [Vol rate/Area] 48 mL/min/{1.73_m2} Low >60 [facility] Comment on above: Result Comment: mL/m in/1.73m2 CKD-EPI Creatinine Equation (2020) Performed By: #### L 100.0100, L500.2500 ####[facility] [address] [place], [address] Glucose [Mass/Vol] 144 mg/dL High 70-99 [facility] Comment on above: Performed By: #### L 100.0100, L500.2500 ####[facility] [address] [place], [address] Potassium [Moles/Vol] 4.2 mmol/L Normal 3.3-5.1 [facility] Comment on above: Performed By: #### L 100.0100, L500.2500 ####[facility] [address] [place], [address] Sodium [Moles/Vol] 139 mmol/L Normal 133-145 [facility] Comment on above: Performed By: #### L 100.0100, L500.2500 ####[facility] [address] [place], [address] Urea nitrogen [Mass/Vol] 15 mg/dL Normal 4-19 [facility] Comment on above: Performed By: #### L 100.0100, L500.2500 ####[facility] [address] [place], [address] CBC W/Diff, Automatedon 02-15 Absolute Lymph 1.15 X10 3/uL Normal 0.83-4.51 [facility] Comment on above: Performed By: #### L 100.0100, L500.2500 ####[facility] [address] [place], [address] Absolute Neut 8.1 X10 3/uL High 2.0-7.7 [facility] Comment on above: Performed By: #### L 100.0100, L500.2500 ####[facility] [address] [place], [address] Basophils/100 WBC (Bld) 0.2 % Normal 0-1 [facility] Comment on above: Performed By: #### L 100.0100, L500.2500 ####[facility] [address] [place], [address] Eosinophils/100 WBC (Bld) 0.1 % Normal 0-5 [facility] Comment on above: Performed By: #### L 100.0100, L500.2500 ####[facility] [address] [place], [address] Erythrocyte distribution width (RBC) [Ratio] 13.2 % Normal 11.6-14.6 [facility] Comment on above: Performed By: #### L 100.0100, L500.2500 ####[facility] [address] [place], [address] Hematocrit (Bld) [Volume fraction] 34.0 % Low 40-54 [facility] Comment on above: Performed By: #### L 100.0100, L500.2500 ####[facility] [address] [place], [address] Hemoglobin (Bld) [Mass/Vol] 11.2 g/dL Low 13.0-16.5 [facility] Comment on above: Performed By: #### L 100.0100, L500.2500 ####[facility] [address] [place], [address] IG% 0.400 Normal 0.0-0.9 [facility] Comment on above: Result Comment: IG% - Immature Granulocytes (promyelocytes, myelocytes and metamyelocytes) > 1% indicates that a LEFT SHIFT is Present. Performed By: #### L 100.0100, L500.2500 ####[facility] [address] [place], [address] Lymphocytes/100 WBC (Bld) 11.0 % Low 19-41 [facility] Comment on above: Performed By: #### L 100.0100, L500.2500 ####[facility] [address] [place], [address] MCH (RBC) [Entitic mass] 28.4 pg Normal 27.0-32.0 [facility] Comment on above: Performed By: #### L 100.0100, L500.2500 ####[facility] [address] [place], [address] MCHC (RBC) [Mass/Vol] 32.9 g/dL Normal 32-36 [facility] Comment on above: Performed By: #### L 100.0100, L500.2500 ####[facility] [address] [place], [address] MCV (RBC) [Entitic vol] 86.3 fL Normal 80-94 [facility] Comment on above: Performed By: #### L 100.0100, L500.2500 ####[facility] [address] [place], [address] Monocytes/100 WBC (Bld) 11.4 % High 0-10 [facility] Comment on above: Performed By: #### L 100.0100, L500.2500 ####[facility] [address] [place], [address] Neutrophils/100 WBC (Bld) 76.9 % High 47-70 [facility] Comment on above: Performed By: #### L 100.0100, L500.2500 ####[facility] [address] [place], [address] Nucleated RBC (Bld) [#/Vol] 0 10*3/uL Normal 0-5 [facility] Comment on above: Performed By: #### L 100.0100, L500.2500 ####[facility] [address] [place], [address] Platelet mean volume (Bld) [Entitic vol] 11.3 fL Normal 6.2-12.0 [facility] Comment on above: Performed By: #### L 100.0100, L500.2500 ####[facility] [address] [place], [address] Platelets (Bld) [#/Vol] 153 10*3/uL Normal 150-450 [facility] Comment on above: Performed By: #### L 100.0100, L500.2500 ####[facility] [address] [place], [address] RBC (Bld) [#/Vol] 3.94 10*6/uL Low 4.6-6.2 [facility] Comment on above: Performed By: #### L 100.0100, L500.2500 ####[facility] [address] [place], [address] RDW SD 41.4 fl Normal 35.1-43.9 [facility] Comment on above: Performed By: #### L 100.0100, L500.2500 ####[facility] [address] [place], [address] WBC (Bld) [#/Vol] 10.5 10*3/uL Normal 4.4-11.0 [facility] Comment on above: Performed By: #### L 100.0100, L500.2500 ####[facility] [address] [place], [address] Discharge Instructionon 02-15 Discharge Instruction [facility] Medical Records Department [address] [place] [address] Instructions for Home/Discharge Instructions 02/25/25 0944 MR#: [id number] Acct: [id number] Name: SUBHASHHOLLIE Rep #: [id number] : 1950 74 From: Los Romero MD [...] Up With: Los Romero MD When: Call [phone] for an appointment Test Results: Test results from this visit will be discussed in further detail at your follow-up appointment, if applicable. Discharge Plan Admission Primary Reason for Your Visit: Right nephro ureterectomy Attending Provider: Los Romero Primary Care Provider: Erwin Garcia Instructions Print Language: Citizen Of [place] Discharge Orders/Prescriptions Prescriptions: New oxycodone 5 mg [...] can be placed): Home, Self Care 02/25/25 0944 Los Romero MD CC: Dr. Erwin Garcia MD Signed [facility] MR/POSTOP.[place] 02-25-2025 MR/POSTOP.[facility] Medical Records Department [address] [place] [address] Anesthesia Postop Eval I 02/25/25 1005 MR#: [id number] Acct: [id number] Name: HOLLIE CULLEN Rep #: [id number] : 1950 74 From: Riley Grewal CRNA PCP: Dr. Erwin Garcia MD Status:ADM MARYCHUY Y Race: C Location: [place] [address]1 Anesthesia: Postop Eval I Current Vital Signs [...] 1 completed: Yes 02/25/25 1006 Date Riley Grewal CRNA Cosigner Signature: Date CC: Signed Normal [facility] MR/RATXWWIU9tu 02-25-2025 /[facility] Medical Records Department [address] [place] [address] Anesthesia Postop Eval II 02/25/25 1111 MR#: [id number] Acct: [id number] Name: HOLLIE CULLEN Rep #: [id number] : 1950 74 From: José Michael MD PCP: Dr. Erwin Garcia MD Status:ADM MARYCHUY Y Race: C Location: [facility] Anesthesia Postop Eval I Sum Postop Eval Completion status Anesthesia document: Postop Eval 1 completed: Yes Anesthesia Postop Eval I Summary Anesthesia Postop Eval I Summary: Anesthesia Postop Eval I: Assessment Summary Airway patent Yes 02/25/25 10:06 RATE CLERK PASSENGER.PKEL Spontaneous unlabored Yes 02/25/25 10:06 RATE CLERK PASSENGER.PKEL respirations Mental status Awake,Calm 02/25/25 10:06 RATE CLERK PASSENGER.PKEL nausea No 02/25/25 10:06 RATE CLERK PASSENGER.PKEL Vomiting No 02/25/25 10:06 RATE CLERK PASSENGER.PKEL Anesthesia Postop Eval I: Fluid Summary Crystalloid volume administer 1,600 02/25/25 10:06 RATE CLERK PASSENGER.PKEL (ml) Colloids volume administered ( ml) Blood Product volume administered (ml) Total IV fluid infused 1,600 02/25/25 10:06 RATE CLERK PASSENGER.PKEL Anesthesia Postop Eval I: Summary Notes Anesthesia Complication No 02/25/25 10:06 RATE CLERK PASSENGER.PKEL Anesthesia Complication Comment: Post-operative progress note Anesthesia: Postop Eval II Evaluation Mental status: Awake Pain Level: 0 nausea: No Vomiting: No 02/25/25 1111 Date José Haney Signature: Date CC: Signed Normal [facility] Operative Reporton Operative Report [facility] Medical Records Department [address] [place] [address] Operative Report 02/25/25 0944 MR#: [id number] Acct: [id number] Name: HOLLIE CULLEN Rep #: [id number] : 1950 74 From: Los Romero MD PCP: Dr. Erwin Garcia MD Status:[facility] Location: [place] [address] Operative Report (Standard) Operative Information Date of Procedure: 02/25/25 Pre-Operative Diagnosis: Right nonfunctioning kidney hydroureteronephrosis Post-Operative Diagnosis: The same Surgery/Procedure Performed: Laparoscopic robotic assisted right nephro ureterectomy food processing chemist: No Type of Anesthesia: General RN Documented Start/Stop Times: Operation Date: 02/25/25 07:30 Case Time Into Pre-Op 02/25/25 05:59 Out of Pre-Op 02/25/25 07:26 Anesthesia Start 02/25/25 07:33 Into Room 04/11/25 07:33 Procedure Start 02/25/25 07:58 Procedure Start [...] a air seal port suction for the melter assistant I then docked the robot we [...] MD; Dr. Erwin Garcia MD Signed Normal [facility] Surgery Specimen Level Von 0 02-25-2025 Surgery Specimen Level V Patient Age/Sex Location Account Attending Physician SUBHASHHOLLIE 74/M MS3 [id number] Dr. Los Romero MD Specimen: [id number] Received: 02/25/25 Status: AVERY Moreland Num: [id number] Spec Type: KIDNEY Subm Dr: Dr. Los [...] cm. Serial sections reveal homogenous cut surfaces. Finish Off Operator sections:A1. Vascular margins, en faceA2-3. Serial sections of dilated kidney (inked black at suture)A4. Small nodules present at dilated kidneyA5. 3 ureteral Patient Age/Sex Location Account Attending Physician HOLLIE CULLEN 74/M MS3 [id number] Dr. Los Romero MD margins, en face (single aspect with each bifurcated lumen)A6. Ureter before bifurcation with small argueta nodulesA7. Ureter at bifurcationA8. Separate, bifurcated ureters with small argueta nodules [facility] 03/09/2025 CPT:12930 Patient Age/Sex Location Account Attending Physician HOLLIE CULLEN 74/M MS3 [id number] Dr. Los Romero MD Signed (signature on file) Dr. Isael Cazares MD 03/09/25 1327 Normal [facility] Comment on above: Performed By: #### P SUV ####[facility] [address] [facility] [place], [address] Electrocardiogram reportOrde red By: Migel Meléndez on 02-16-2025 EKG study [facility] Cardiovascular Services [address] [place] [address] 12 Lead EKG 02/15/25 0856 MR#: [id number] Acct: [id number] Name: HOLLIE CULLEN Rep #:[id number] : 1950 74 From: Migel Meléndez MD Attending Dr: Dr. Los Romero MD Status: PRE SDC Ordering Dr: José Michael MD Date: 12/11 Location: [facility] Sex: M C Admitted: Test Reason : [...] , age undetermined Abnormal ECG Confirmed by YAYA CLARKE, MIGEL ([id number]), state editor MARYLU EDWARDS ([id number]) on 02/16/2025 6:36:46 AM Referred By: Los Romero Confirmed By: MIGEL MELÉNDEZ MD 02/16/25 0636 Date _ Migel Meléndez MD CC: Dr. José Michael MD; Dr. Los Romero MD; Dr. Erwin Garcia MD ~ Signed [facility] Work Phone: Surgery Visit Reporton 02-16 Surgery Visit Report [facility] [address] [place] [address] OFFICE VISIT Date of Service: 02/14/25 MR#: [id number] Acct: [id number] Name: SUBHASHHOLLIE Rep #: [id number] : 1950 Provider: Dr. Elana boothe MD Age/Sex: 74/M Location: [facility] Status: Signed Intake Vital Signs 02/07/25 09:39 [...] get worse prior. Elana Richmond M.D. Pager: [phone] [facility] [address] [place] [address], [address] [place] [address] Office: [phone] Coding Level of Care Code Off vis,est,level 3 Diagnoses Bloating symptom R14.0 Gallstones K80.20 Kidney atrophy N26.1 Clinical Quality Measures Falls Risk Screening/Assistive Devices Have you fallen in the past year?: No 02/16/25 1332 Date Elana Richmond MD Cosigner Signature: Date (if applicable) CC: Dr. Erwin Garcia MD [facility] 12 Lead EKThony 02-15-2025 12 Lead EKG [facility] Cardiovascular Services [address] [place], [place] [address] 12 Lead EKG 02/15/25 0856 MR#: [id number] Acct: [id number] Name: HOLLIE CULLEN Rep #: [id number] : 1950 74 From: Migle Meléndez MD Attending Dr: Dr. Los Romero MD Status: PRE SDC Ordering Dr: José Michael MD Date: 02/15/25 Location: [facility] Sex: M C Admitted: Test Reason : [...] , age undetermined Abnormal ECG Confirmed by YAYA CLARKE, MIGEL ([id number]), state editor MARYLU EDWARDS ([id number]) on 02/16/2025 6:36:46 AM Referred By: Los Romero Confirmed By: MIGEL MELÉNDEZ MD 02/16/25 0636 Date Migel Meléndez MD CC: Dr. José Michael MD; Dr. Los Romero MD; Dr. Erwin Garcia MD Signed [facility] MR/PAT.[place] 02-15-2025 MR/PAT.[facility] Medical Records Department [address] [place] [address] PAT - Anesthesia 02/15/25 1625 MR#: [id number] Acct: [id number] Name: HOLLIE CULLEN Rep #: [id number] : 1950 74 From: Kvng Caraballo MD PCP: Dr. 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 Hx Hospitalization No 02/11/25 13:33 Any Problems [...] take am of surgery PONV PONV - shipping 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: PONV - shipping 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 Female No 02/11/25 13:33 HX of Motion [...] 02/07/25 09:39 Respiratory Assessment Respiratory Assessment - shipping 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: Respiratory Tract Infection Hx - shipping 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 Hx Respiratory Tract Infection No 02/11/25 13:33 STOP Sleep Apnea 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 Hx Hypertension No 02/11/25 13:33 Hx Sleep [...] Tobacco Use History Tobacco Use History - shipping 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: Tobacco Use History - shipping 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 Tobacco Use Smoking Status Light Smoker (<10/day) 02/11/25 13:33 Hx Tobacco Use Yes 02/11/25 13:33 Years Smoking 50 02/11/25 13:33 Packs Smoked per Day 1 02/11/25 13:33 Smoking Cessation Date was within the last 15 years Hx Smoking Cessation Date Hx Smoking Cessation Counseling Hematologic Medial History 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 Normal [facility] Surgery Visit Reporton 02-07 Surgery Visit Report [facility] [address] [place], [place] [address] OFFICE VISIT Date of Service: 02/07/25 MR#: [id number] Acct: [id number] Name: SUBHASHHOLLIE Rep #: [id number] : 1950 Provider: Dr. Elana boothe MD Age/Sex: 74/M Location: [facility] Status: Signed Intake Vital Signs 01/31/25 10:04 [...] cut, br (more content not included)... Normal [facility] Urine Cultureon 02-03-2025 URC Streptococcus mitis/ oralis [place] Count 25,000-50,000 Streptococcus mitis/ oralis: REACTION Ampicillin Islt JENNY <=0.25 Penicillin G Islt JENNY <=0.06 S Cefotaxime Islt JENNY <=0.12 S cefTRIAXone Islt JENNY <=0.12 S Linezolid Islt JENNY <=2 S Vancomycin Islt JENNY 0.25 S Normal [facility] Comment on above: Performed By: #### M 100.2200 ####[facility] [address] [place], [address] Abdomen Limitedon 01-31-2025 Abdomen Limited [facility] Imaging Services [address] [place], [place] [address] Abdomen Limited MR#: [id number] Acct: [id number] Name: HOLLIE CULLEN Rep #: [id number] : 1950 M 74 From: Rayray alvarenga MD PCP: Dr. Erwin Garcia MD Status: REG ER Study: Abdomen Limited Date of Exam: 01/31/25 Exam# [id number] Ordering Dr: Rashi Lee DO PROCEDURE: ABDOMEN [...] infiltration of the liver. Hepatomegaly. Reading Location: [place] [address] CC: Dr. Rashi Lee DO; Dr. 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 Erwin Garcia MD Status: REG ER Study: Abdomen/Pelvis WITH Contrast Date of Exam: Exam# [id number] Ordering Dr: Rashi Lee DO PROCEDURE: ABDOMEN/PELVIS [...] side. Diffuse bladder wall thickening. Reading Location: [place] [address] CC: Dr. Rashi Lee DO; Dr. Erwin Garcia MD [employer]: Signed Normal [facility] Absolute lymphocyte countOrd ered By: Rashi Lee on 01-31-2025 Lymphocytes Auto (Unsp spec) [#/Vol] 1.21 10*3/uL 0.83-4.51 [facility] Absolute neutrophil countOrd ered By: Rashi Lee on 01-31-2025 Neutrophils (Bld) [#/Vol] 5.4 10*3/uL 2.0-7.7 [facility] Anion gap in Serum or Plasma Ordered By: Rashi Lee on 01-31-2025 Anion gap [Moles/Vol] 7 mmol/L 5-15 [facility] Automated lymphocyte count a s percentage of total leukocytesOrdered By: Rashi Lee on 01-31-2025 Lymphocytes/100 WBC Auto (Unsp spec) 16.0 % Low 19-41 [facility] BUN/creatinine ratioOrdered By: Rashi Lee on 01-31-2025 Urea nitrogen/Creatinine [Mass ratio] 13.1 mg/mg 10- [facility] Basophil percentageOrdered B y: Rashi Lee on 01-31-2025 Basophils/100 WBC (Bld) 0.5 % 0-1 [facility] Bilirubin Test strip Ql (U)O rdered By: Rashi Lee on 01-31-2025 Bilirubin Ql (U) Negative Negative [facility] Bilirubin, totalOrdered By: Rashi Lee on 01-31-2025 Bilirubin [Mass/Vol] 0.27 mg/dL 0.00-1.30 [facility] CBC W/Diff, Automatedon 01-15 Absolute Lymph 1.21 X10 3/uL Normal 0.83-4.51 [facility] Comment on above: Performed By: #### L 500.4050, L100.0100, L501.2450 #### [facility] [address] [place], [address] Absolute Neut 5.4 X10 3/uL Normal 2.0-7.7 [facility] Comment on above: Performed By: #### L 500.4050, L100.0100, L501.2450 #### [facility] [address] [place], [address] Basophils/100 WBC (Bld) 0.5 % Normal 0-1 [facility] Comment on above: Performed By: #### L 500.4050, L100.0100, L501.2450 #### [facility] [address] [place], [address] Eosinophils/100 WBC (Bld) 1.8 % Normal 0-5 [facility] Comment on above: Performed By: #### L 500.4050, L100.0100, L501.2450 #### [facility] [address] [place], [address] Erythrocyte distribution width (RBC) [Ratio] 13.4 % Normal 11.6-14.6 [facility] Comment on above: Performed By: #### L 500.4050, L100.0100, L501.2450 #### [facility] [address] [place], [address] Hematocrit (Bld) [Volume fraction] 43.8 % Normal 40-54 [facility] Comment on above: Performed By: #### L 500.4050, L100.0100, L501.2450 #### [facility] [address] [place], [address] Hemoglobin (Bld) [Mass/Vol] 14.7 g/dL Normal 13.0-16.5 [facility] Comment on above: Performed By: #### L 500.4050, L100.0100, L501.2450 #### [facility] [address] [place], [address] IG% 0.100 Normal 0.0-0.9 [facility] Comment on above: Result Comment: IG% - Immature Granulocytes (promyelocytes, myelocytes and metamyelocytes) > 1% indicates that a LEFT SHIFT is Present. Performed By: #### L 500.4050, L100.0100, L501.2450 #### [facility] [address] [place], [address] Lymphocytes/100 WBC (Bld) 16.0 % Low 19-41 [facility] Comment on above: Performed By: #### L 500.4050, L100.0100, L501.2450 #### [facility] [address] [place], [address] MCH (RBC) [Entitic mass] 28.4 pg Normal 27.0-32.0 [facility] Comment on above: Performed By: #### L 500.4050, L100.0100, L501.2450 #### [facility] [address] [place], [address] MCHC (RBC) [Mass/Vol] 33.6 g/dL Normal 32-36 [facility] Comment on above: Performed By: #### L 500.4050, L100.0100, L501.2450 #### [facility] [address] [place], [address] MCV (RBC) [Entitic vol] 84.7 fL Normal 80-94 [facility] Comment on above: Performed By: #### L 500.4050, L100.0100, L501.2450 #### [facility] [address] [place], [address] Monocytes/100 WBC (Bld) 10.8 % High 0-10 [facility] Comment on above: Performed By: #### L 500.4050, L100.0100, L501.2450 #### [facility] [address] [place], [address] Neutrophils/100 WBC (Bld) 70.8 % High 47-70 [facility] Comment on above: Performed By: #### L 500.4050, L100.0100, L501.2450 #### [facility] [address] [place], [address] Nucleated RBC (Bld) [#/Vol] 0 10*3/uL Normal 0-5 [facility] Comment on above: Performed By: #### L 500.4050, L100.0100, L501.2450 #### [facility] [address] [place], [address] Platelet mean volume (Bld) [Entitic vol] 10.3 fL Normal 6.2-12.0 [facility] Comment on above: Performed By: #### L 500.4050, L100.0100, L501.2450 #### [facility] [address] [place], [address] Platelets (Bld) [#/Vol] 188 10*3/uL Normal 150-450 [facility] Comment on above: Performed By: #### L 500.4050, L100.0100, L501.2450 #### [facility] [address] [place], [address] RBC (Bld) [#/Vol] 5.17 10*6/uL Normal 4.6-6.2 [facility] Comment on above: Performed By: #### L 500.4050, L100.0100, L501.2450 #### [facility] [address] [place], [address] RDW SD 41.7 fl Normal 35.1-43.9 [facility] Comment on above: Performed By: #### L 500.4050, L100.0100, L501.2450 #### [facility] [address] [place], [address] WBC (Bld) [#/Vol] 7.6 10*3/uL Normal 4.4-11.0 [facility] Comment on above: Performed By: #### L 500.4050, L100.0100, L501.2450 #### [facility] [address] [place], [address] Carbon dioxide, total [Moles /volume] in Central venous bloodOrdered By: Rashi Lee on 01-31-2025 CO2 [Moles/Vol] 26.2 mmol/L 21.0-32.0 [facility] Chloride assayOrdered By: Star Lee on 01-31-2025 Chloride [Moles/Vol] 105 mmol/L 98-108 [facility] Comprehensive Metabolic Prof ilon 01-31-2025 Albumin [Mass/Vol] 4.0 g/dL Normal 3.4-4.8 [facility] Comment on above: Performed By: #### L 500.4050, L100.0100, L501.2450 ####[facility] [address] [place], [address] Albumin/Globulin [Mass ratio] 1.5 {ratio} Normal 0.9-2.4 [facility] Comment on above: Performed By: #### L 500.4050, L100.0100, L501.2450 ####[facility] [address] [place], [address] ALK PHOS 80 U/L Normal 40-129 [facility] Comment on above: Performed By: #### L 500.4050, L100.0100, L501.2450 ####[facility] [address] [place], [address] ALT [Catalytic activity/Vol] 22 U/L Normal <=46 [facility] Comment on above: Performed By: #### L 500.4050, L100.0100, L501.2450 ####[facility] [address] [place], [address] AST [Catalytic activity/Vol] 20 U/L Normal <=37 [facility] Comment on above: Performed By: #### L 500.4050, L100.0100, L501.2450 ####[facility] [address] [place], [address] Bilirubin [Mass/Vol] 0.27 mg/dL Normal 0.00-1.30 [facility] Comment on above: Performed By: #### L 500.4050, L100.0100, L501.2450 ####[facility] [address] [place], [address] BUN/CRE 13.1 RATIO Normal 10-20 [facility] Comment on above: Performed By: #### L 500.4050, L100.0100, L501.2450 ####[facility] [address] [place], [address] Calcium [Mass/Vol] 9.3 mg/dL Normal 7.6-11.0 [facility] Comment on above: Performed By: #### L 500.4050, L100.0100, L501.2450 ####[facility] [address] [place], [address] Chloride [Moles/Vol] 105 mmol/L Normal 98-108 [facility] Comment on above: Performed By: #### L 500.4050, L100.0100, L501.2450 ####[facility] [address] [place], [address] CO2 [Moles/Vol] 26.2 mmol/L Normal 21.0-32.0 [facility] Comment on above: Performed By: #### L 500.4050, L100.0100, L501.2450 ####[facility] [address] [place], [address] Creatinine [Mass/Vol] 1.42 mg/dL High 0.70-1.20 [facility] Comment on above: Performed By: #### L 500.4050, L100.0100, L501.2450 ####[facility] [address] [place], [address] ECRCL 57.85 ml/min Normal 50-250 [facility] Comment on above: Performed By: #### L 500.4050, L100.0100, L501.2450 ####[facility] [address] [place], [address] GAP 7 Normal 5-15 [facility] Comment on above: Performed By: #### L 500.4050, L100.0100, L501.2450 ####[facility] [address] [place], [address] GFR/1.73 sq M.predicted among non-blacks MDRD (S/P/Bld) [Vol rate/Area] 53 mL/min/{1.73_m2} Low >60 [facility] Comment on above: Result Comment: mL/m in/1.73m2 CKD-EPI Creatinine Equation (2020) Performed By: #### L 500.4050, L100.0100, L501.2450 ####[facility] [address] [place], [address] Globulin (S) [Mass/Vol] 2.6 g/dL Normal 2.2-4.2 [facility] Comment on above: Performed By: #### L 500.4050, L100.0100, L501.2450 ####[facility] [address] [place], [address] Glucose [Mass/Vol] 116 mg/dL High 70-99 [facility] Comment on above: Performed By: #### L 500.4050, L100.0100, L501.2450 ####[facility] [address] [place], [address] Potassium [Moles/Vol] 4.5 mmol/L Normal 3.3-5.1 [facility] Comment on above: Performed By: #### L 500.4050, L100.0100, L501.2450 ####[facility] [address] [place], [address] Sodium [Moles/Vol] 138 mmol/L Normal 133-145 [facility] Comment on above: Performed By: #### L 500.4050, L100.0100, L501.2450 ####[facility] [address] [place], [address] T PROT 6.6 g/dL Normal 5.9-8.4 [facility] Comment on above: Performed By: #### L 500.4050, L100.0100, L501.2450 ####[facility] [address] [place], [address] Urea nitrogen [Mass/Vol] 19 mg/dL Normal 4-19 [facility] Comment on above: Performed By: #### L 500.4050, L100.0100, L501.2450 ####[facility] [address] [place], [address] Consultation - Surgicalon Consultation - Surgical [facility] Medical Records Department [address] [place] [address] Consultation - Surgical 01/31/25 1647 MR#: [id number] Acct: [id number] Name: HOLLIE CULLEN Rep #: [id number] : 1950 74 From: Elana Richmond MD [...] Deferred to urology. Elana Richmond M.D. Pager: [phone] [facility] [address] [place] [address], [facility], [address] [place] [address] Office: [phone] HPI Consult Data Date of Consult: 01/31/25 [...] was nothing to do at that time. [facility] Medical History (Updated 01/31/25 @ 17:16 by [...] effort Cardio (more content not included)... Normal [facility] Emergency Department Summary on 01-31-2025 Emergency Department Summary [facility] Medical Records Department [address] [place] [address] Emergency Department Summary 01/31/25 MR#: [id number] Acct: [id number] Name: HOLLIE CULLEN Rep #: [id number] : 1950 74 From: Rashi Lee DO PCP: Dr. Erwin Garcia MD Status:REG ER Location: ED ADDENDUM by Dr. Tan Mcgarry DO on 01/31/25 at [address] Romero, he will follow-up with the patient in the office. 01/31/25 175 Cosigner Signature (if applicable): cc: Dr. Erwin [...] Present Illness Chief Complaint: Abd Pain PFSH [facility] Medical History (Updated 01/31/25 @ 11:07 by [...] lesions note (more content not included)... Normal [facility] Eosinophil percentageOrdered By: Rashi Lee on 01-31-2025 Eosinophils/100 WBC (Bld) 1.8 % 0-5 [facility] Epithelial cells.squamous LM Ql (Urine sed)Ordered By: Rashi Lee on 01-31-2025 Epithelial cells.squamous LM.HPF (Urine sed) [#/Area] 0 /[HPF] 0-5 [facility] Erythrocyte distribution wid th ratioOrdered By: Rashi Lee on 01-31-2025 Erythrocyte distribution width (RBC) [Ratio] 13.4 % 11.6-14.6 [facility] Erythrocyte distribution wid th standard deviationOrdered By: Rashi Lee on 01-31-2025 Erythrocyte distribution width (RBC) [Entitic vol] 41.7 fL 35.1-43.9 [facility] Erythrocyte distribution width (RBC) [Ratio] 41.7 fl 35.1-43.9 [facility] Estimation of creatinine umang aranceOrdered By: Rashi Lee on 01-31-2025 Estimated Creatinine Clearance Calc 57.85 ml/min 50-250 [facility] GFR/1.73 sq M.predicted gabi g non-blacks MDRD (S/P/Bld) [Vol rate/Area]Ordered By: Rashi Lee on 01-31-2025 Estimated GFR (MDRD) Non-Af Amer 53 Low >60 [facility] Comment on above: mL/min/1.73m2 CKD-EP I Creatinine Equation (2020) Glomerular filtration rate ( GFR) estimation/1.73 sq m using serum, plasma, or whole bOrdered By: Rashi Lee on 01-31-2025 GFR/1.73 sq M.predicted among non-blacks MDRD (S/P/Bld) [Vol rate/Area] 53 mL/min/{1.73_m2} Low >60 [facility] Comment on above: mL/min/1.73m2 CKD-EP I Creatinine Equation (2020) Glucose Ql (U)Ordered By: marina Lee on 01-31-2025 Urine Glucose (UA) Normal mg/dl Normal [facility] Hematocrit Auto (Bld) [Volum e fraction]Ordered By: Rashi Lee on 01-31-2025 Hematocrit (Bld) [Volume fraction] 43.8 % 40-54 [facility] Hemoglobin measurementOrdere d By: Rashi Lee on 01-31-2025 Hemoglobin (Bld) [Mass/Vol] 14.7 g/dL 13.0-16.5 [facility] Immature granulocytes/100 WB C Auto (Bld)Ordered By: Rashi Lee on 01-31-2025 Immature granulocytes/100 WBC (Bld) 0.100 % 0.0-0.9 [facility] Comment on above: IG% - Immature Granu locytes (promyelocytes, myelocytes and metamyelocytes) > 1% indicates that a LEFT SHIFT is Present. Ketones Test strip Ql (U)Ord ered By: Rashi Lee on 01-31-2025 Ketones Ql (U) Negative Negative [facility] Laboratory - Chemistry and C hemistry - challengeOrdered By: Rashi Lee on 01-31-2025 AST [Catalytic activity/Vol] 20 U/L <38 [facility] Lipaseon 01-31-2025 Lipase [Catalytic activity/Vol] 31 U/L Normal 13-75 [facility] Comment on above: Result Comment: Prashanth weathers note: LIPASE revised reference range effective 23. New Lipase methodology. Expected to produce lower values than the previous assay method. NEW Reference Range: 13 - 75 U/L Performed By: #### L 500.4050, L100.0100, L501.2450 ####[facility] [address] [place], [place], [address] Lipase measurementOrdered By : Rashi Lee on 01-31-2025 Lipase [Catalytic activity/Vol] 31 U/L 13-75 [facility] Comment on above: Please note:LIPASE r evised reference range effective 23. New Lipase methodology. Expected to produce lower values than the previous assay method. NEW Reference Range: 13 - 75 U/L Lymphocytes Auto (Unsp spec) [#/Vol]Ordered By: Rashi Lee on 01-31-2025 Lymphocytes (Bld) [#/Vol] 1.21 10*3/uL 0.83-4.51 [facility] Lymphocytes/100 WBC Auto (Un sp spec)Ordered By: Rashi Lee on 01-31-2025 Lymphocytes/100 WBC (Bld) 16.0 % Low 19-41 [facility] MCV (mean corpuscular volume ) determinationOrdered By: Rashi Lee on 01-31-2025 MCV (RBC) [Entitic vol] 84.7 fL 80-94 [facility] Mean corpuscular hemoglobin (MCH) determinationOrdered By: Rashi Lee on 01-31-2025 MCH (RBC) [Entitic mass] 28.4 pg 27.0-32.0 [facility] Mean corpuscular hemoglobin concentration (MCHC) determinationOrdered By: Rashi Lee on 01-31-2025 MCHC (RBC) [Mass/Vol] 33.6 g/dL 32-36 [facility] Mean platelet volume determi nationOrdered By: Rashi Lee on 01-31-2025 Platelet mean volume (Bld) [Entitic vol] 10.3 fL 6.2-12.0 [facility] Microscopic analysis of urin e for red blood cells (RBC)Ordered By: Rashi Lee on 01-31-2025 Microscopic analysis of urine for red blood cells (RBC) 5-10 SEEN /hpf 0-5 [facility] Urine RBC 5-10 SEEN /hpf 0-5 [facility] Monocyte percentageOrdered B y: Rashi Lee on 01-31-2025 Monocytes/100 WBC (Bld) 10.8 % High 0-10 [facility] Mucus LM Ql (Urine sed)Order ed By: Rashi Lee on 01-31-2025 Mucus Ql (Urine sed) 0 SEEN /hpf [facility] Neutrophil percentageOrdered By: Rashi Lee on 01-31-2025 Neutrophils/100 WBC (Bld) 70.8 % High 47-70 [facility] Nitrite Test strip Ql (U)Ord ered By: Rashi Lee on 01-31-2025 Nitrite Ql (U) Negative Negative [facility] Nucleated red blood cell per centageOrdered By: Rashi Lee on 01-31-2025 Nucleated RBC/100 WBC (Bld) [Ratio] 0 % 0-5 [facility] Platelet countOrdered By: Star Lee on 01-31-2025 Platelets (Bld) [#/Vol] 188 10*3/uL 150-450 [facility] Potassium (Unsp spec) [Mass/ Vol]Ordered By: Rashi Lee on 01-31-2025 Potassium [Moles/Vol] 4.5 mmol/L 3.3-5.1 [facility] Potassium measurement (mass/ volume)Ordered By: Rashi Lee on 01-31-2025 Potassium (Unsp spec) [Mass/Vol] 4.5 mmol/L 3.3-5.1 [facility] Protein Test strip Ql (U)Ord ered By: Rashi Lee on 01-31-2025 Protein Ql (U) 15 mg/dl High Negative [facility] RBC Auto (Bld) [#/Vol]Ordere d By: Rashi Lee on 01-31-2025 RBC (Bld) [#/Vol] 5.17 10*6/uL 4.6-6.2 [facility] Serum creatinine measurement (mass/volume)Ordered By: Rashi Lee on 01-31-2025 Creatinine [Mass/Vol] 1.42 mg/dL High 0.70-1.20 [facility] Serum globulin measurementOr dered By: Rashi Lee on 01-31-2025 Globulin (S) [Mass/Vol] 2.6 g/dL 2.2-4.2 [facility] Serum glucose measurement (m ass/volume)Ordered By: Rashi Lee on 01-31-2025 Glucose [Mass/Vol] 116 mg/dL High 70-99 [facility] Serum or plasma alanine cervantes otransferase (ALT) measurementOrdered By: Rashi Lee on 01-31-2025 ALT [Catalytic activity/Vol] 22 U/L <47 [facility] Serum or plasma albumin rayshawn urement (mass/volume)Ordered By: Rashi Lee on 01-31-2025 Albumin [Mass/Vol] 4.0 g/dL 3.4-4.8 [facility] Serum or plasma albumin/glob ulin mass ratioOrdered By: Rashi Lee on 01-31-2025 Albumin/Globulin [Mass ratio] 1.5 {ratio} 0.9-2.4 [facility] Serum or plasma alkaline luc sphatase measurementOrdered By: Rashi Lee on 01-31-2025 ALP [Catalytic activity/Vol] 80 U/L 40-129 [facility] Serum or plasma calcium rayshawn urement (mass/volume)Ordered By: Rashi Lee on 01-31-2025 Calcium [Mass/Vol] 9.3 mg/dL 7.6-11.0 [facility] Serum or plasma urea nitroge n measurement (mass/volume)Ordered By: Rashi Lee on 01-31-2025 Urea nitrogen [Mass/Vol] 19 mg/dL 4-19 [facility] Sodium levelOrdered By: Satish Lee on 01-31-2025 Sodium [Moles/Vol] 138 mmol/L 133-145 [facility] Squamous epithelial cells de tection in urine sediment by light microscopyOrdered By: Rashi Lee on 01-31-2025 Epithelial cells.squamous LM Ql (Urine sed) 0-5 SEEN /hpf 0-5 [facility] Total proteinOrdered By: Aquiles Lee on 01-31-2025 Protein [Mass/Vol] 6.6 g/dL 5.9-8.4 [facility] Urinalysis, Completeon 01-31 BACTERIA 3+ /hpf Normal None Seen [facility] Comment on above: Order Comment: CLEAN CATCH Performed By: #### L 400.0001 #### [facility] [address] [place], [address] EPI,SQUAMOUS 0-5 SEEN Normal 0-5 [facility] Comment on above: Order Comment: CLEAN CATCH Performed By: #### L 400.0001 #### [facility] [address] [place], [place], [id number] RBC 5-10 SEEN Normal 0-5 [facility] Comment on above: Order Comment: CLEAN CATCH Performed By: #### L 400.0001 #### [facility] [address] [place], [place], [id number] WBC 50-100 SEEN Normal 0-5 [facility] Comment on above: Order Comment: CLEAN CATCH Performed By: #### L 400.0001 #### [facility] [address] [place], [place], [address] Mucus Ql (Urine sed) 0 SEEN Normal [facility] Comment on above: Order Comment: CLEAN CATCH Performed By: #### L 400.0001 #### [facility] [address] [place], [address] Urine blood detectionOrdered By: Rashi Lee on 01-31-2025 Urine Occult Blood 25 /ul High Negative [facility] Urine clarityOrdered By: Aquiles Lee on 01-31-2025 Clarity (U) Cloudy Clear [facility] Urine color determinationOrd ered By: Rashi Lee on 01-31-2025 Color (U) Yellow Yellow [facility] Urine cultureOrdered By: Aquiles Lee on 01-31-2025 Bacteria identified Cx Nom (U) Streptococcus mitis/ oralis Abnormal [facility] Urine glucose detectionOrder ed By: Rashi Lee on 01-31-2025 Glucose Ql (U) Normal mg/dl Normal [facility] Urine leukocyte esterase det ection by dipstickOrdered By: Rashi Lee on 01-31-2025 Leukocyte esterase Test strip Ql (U) 500 /ul High Negative [facility] Urine pHOrdered By: Rashi ayala on 01-31-2025 pH (U) 6.0 [pH] 5.0 - 8.0 [facility] Urine sediment bacteria coun t by microscopy (number/high power field)Ordered By: Rashi Lee on 01-31-2025 Bacteria LM.HPF (Urine sed) [#/Area] 3 /[HPF] None Seen [facility] Urine specific gravity measu rementOrdered By: Rashi Lee on 01-31-2025 Specific gravity (U) [Rel density] 1.015 1.002-1.030 [facility] Urine urobilinogen measureme ntOrdered By: Rashi Lee on 01-31-2025 Urobilinogen Ql (U) Normal mg/dl Normal [facility] Urobilinogen Ql (U)Ordered B y: Rashi Lee on 01-31-2025 Urine Urobilinogen Normal mg/dl Normal [facility] White blood cell (WBC) count Ordered By: Rashi Mcgovernrus on 01-31-2025 WBC (Bld) [#/Vol] 7.6 10*3/uL 4.4-11.0 [facility] White blood cell countOrdere d By: Rashi Rosa on 01-31-2025 Urine WBC 50-100 SEEN /hpf 0-5 [facility] White blood cell count 50-100 SEEN /hpf 0-5 [facility] CNPNon 06-24-2024 CNPN Telephone (INTMWS) SUBHASH,HOLLIE Robles ([id number]) 1950 M Date Time Provider Department 06/24/24 [...] Date Reviewed: 06/14/2024 Reviewed by: Isael Lebron APRN.GEOTECHNICAL FIELD TECHNICIAN - Fully Assessed Reason for Visit: Patient Question [[id number]] Prescriptions as of 06/28/2024 - simvastatin (ZOCOR) [...] Encounter Status:Closed by BEATRICE PARKER on 06/28/24 [facility] 06-16-2024 [facility] Letter Text Normal [facility] CNOVon 06-14-2024 CNOV Office Visit (PULMWS ) HOLLIE CULLEN ([id number]) 1950 M Date Time Provider Department 06/14/24 9:00 AM ISAEL LEBRON PULMWS During your visit today, we recorded the following information about you: Isael Lebron APRN.GEOTECHNICAL FIELD TECHNICIAN 06/14/2024 10:10 AM Signed LUNG SCREENING ANNUAL [...] which included preparing to see the patient, ahvi-nq-jsfv patient care, completing clinical documentation, performing a medically appropriate examination, counseling and educating the patient/family/caregive r, ordering medications, tests, or procedures, communicating with other HCPs (not separately reported), independently interpreting results (not separately reported), communicating results to the patient/family/caregive r, and care coordination (not separately reported). Isael Lebron APRN.[facility] June 14, 2024 8:48 AM History [...] maintenance inhaler for COPD. Modified Medical Research [place] Dyspnea Scale (MMRC) I only get breathless with strenous exercise 0 Last 12 Encounter Wt Readings: Date: Wt: 03/18/2024 101.6 kg (224 lb) 01/13/2024 103.9 kg (229 lb) 05/28/2023 100.7 kg (222 lb) 03/13/2023 102.5 kg (more content not included)... Normal [facility] CT LUNG SCREEN IVCONon CT LUNG SCREEN WO IVCON * * *Final Report* * * DATE OF EXAM: Jun 14 2024 8:24AM [facility] 0562 - CT LUNG SCREEN WO IVCON [...] without contrast. MQ: CTLCS_6 Patient characteristics: * Pytu-th-Hxwbo: 1950; Age at exam: 73 years * Gender: Male * Lung Disease: Asymptomatic (no signs or symptoms of lung disease) * Number of Pack Years: 28 * Current smoker (=0) or Number of Years since Quit: 0 * Ordering provider and NPI: ISAEL LEBRON [id number] * Interpreting radiologist and NPI: Da [id number] Exam acquisition parameters: * Exam Date: 06/14/2024 8:24 AM * Site: [facility] * * CT System Station Baggage Agent: Mobile [employer]se * CT System Model: Sensation * Tube [...] 12 months. Other actionable findings: ====== Reference: [employer]. Lung CT Screening Reporting and Data System (Lung-RADS). Available at: http://www.acr.org/Qual ity-Safety/Resources/Polina ngRADS Metal Precision Machine Assembler: ASHLEY Transcribe Date/Time: Jun 15 2024 9:32A Dictated by : JIMBO SORIANO MD This examination was interpreted and the report reviewed and electronically signed by: JIMBO SORIANO MD on Jun 15 2024 9:39AM EST [id number] Normal [facility] XR Knee - right 3 Viewson No acute fracture or dislocation. Gpje-jw-mczcvcwl tricompartmental arthritic changes. Signed by: Donald Jacques 01/01/2024 10:39 AM Dictation workstation: [id number] [facility] Interpreted By: Donald Riggs, STUDY: XR KNEE RIGHT 3 VIEWS; 01/01/2024 9:55 am INDICATION: Signs/Symptoms:medial knee pain x 2 weeks, NKI. COMPARISON: None. ACCESSION NUMBER(S): [id number] ORDERING CLINICIAN: TRELL GOLDMAN FINDINGS: Three views of the right knee are obtained. Medial and patellofemoral joint space loss. Tricompartmental osteophytes. No erosions. No acute fracture-dislocation. [facility] Donald Jacques MD - 01/01/2024 Interpreted By: Donald Jacques, STUDY: XR KNEE RIGHT 3 VIEWS; 01/01/2024 9:55 am INDICATION: Signs/Symptoms:medial knee pain x 2 weeks, NKI. COMPARISON: None. ACCESSION NUMBER(S): [id number] ORDERING CLINICIAN: TRELL GOLDMAN FINDINGS: Three views of the right knee are obtained. Medial and patellofemoral joint space loss. Tricompartmental osteophytes. No erosions. No acute fracture-dislocation. IMPRESSION: No acute fracture or dislocation. Dqhj-jz-jnqkmtxg tricompartmental arthritic changes. Signed by: Donald Jacques 01/01/2024 10:39 AM Dictation workstation: [id number] [facility] Work Phone: Radiology Study observation (narrative) [facility] Work Phone: XR Knee - right 3 ViewsOrder ed By: Donald Jacques on 01-01-2024 [facility] Work Phone: No Panel Informationon 06-10 Prostate Specific Antigen Screen 0.96 ng/mL 0.00-4.00 [facility] Comment on above: This test was perfor med using the TPSA assay method for [employer] chemistry system. Values obtained with differentassay methods [...] SIGNS: T PRBP SpO2O2(LPM) %FiO2 Method 05-Nov-2022 09:19:[id number] 5 96 MDM MDM/ED COURSE: Discussed Findings [...] ill patient: no Electronic Signatures: Trell Goldman (REGULATION SUPERVISOR-GEOTECHNICAL FIELD TECHNICIAN) (Signed 05-Nov-2022 09:38) Authored: ED Notes, HPI, PMH, ROS, PE, Results/Vital Signs, MDM/ED Course, Clinical Impression, Attestation, Chart Review, Scores Last Updated: 05-Nov-2022 09:38 by Trell Goldman (REGULATION SUPERVISOR-GEOTECHNICAL FIELD TECHNICIAN) [facility] Vital Signs Date Time Vital Sign Value Performing Clinician Facility 04-27-2025 12:47-0400 Body temperature 98.3 [degF] Dr. Rashi Lee DO Work Phone: [facility] 04-27-2025 12:47-0400 Diastolic blood pressure 59 mm[Hg] Dr. Rashi Lee DO Work Phone: 0(834)544-977261 [place] [address] 04-27-2025 12:47-0400 Heart rate 83 /min Dr. Rashi Lee DO Work Phone: 6(418)243-069461 [place] [address] 04-27-2025 12:47-0400 Respiratory rate 18 /min Dr. Rashi Lee DO Work Phone: 6(150)960-794661 [place] [address] 04-27-2025 12:47-0400 SaO2% (BldA) [Mass fraction] 94 % Dr. Rashi Lee DO Work Phone: 9(773)805-526176 [place] [address] 04-27-2025 12:47-0400 Systolic blood pressure 134 mm[Hg] Dr. Rashi Lee DO Work Phone: 5(735)083-842676 [place] [address] 04-27-2025 10:12-0400 Inhaled oxygen flow rate 2 L/min Dr. Rashi Lee DO Work Phone: 5(111)065-371061 [place] [address] 04-26-2025 15:18-0400 Body height 177.[address] Rashi Lee DO Work Phone: 2(147)388-365576 [place] [address] 04-26-2025 15:18-0400 Body weight 103.[address] Rashi Lee DO Work Phone: 6(288)827-295476 [place] [address] 04-26-2025 14:35-0400 Body mass index (BMI) [Ratio] 32.8 kg/m2 Dr. Rashi Lee DO Work Phone: 0(686)326-915061 [place] [address] 04-25-2025 23:48-0400 Body temperature 98.6 [degF] Dr. Rashi Lee DO Work Phone: 7(298)215-861061 [place] [address] 04-25-2025 23:48-0400 Diastolic blood pressure 62 mm[Hg] Dr. Rashi Lee DO Work Phone: 7(961)200-421561 [place] [address] 04-25-2025 23:48-0400 Heart rate 65 /min Dr. Rashi Lee DO Work Phone: 6(594)338-656461 [place] [address] 04-25-2025 23:48-0400 Respiratory rate 18 /min Dr. Rashi Lee DO Work Phone: [facility] 04-25-2025 23:48-0400 SaO2% (BldA) [Mass fraction] 92 % Dr. Rashi Lee DO Work Phone: [facility] 04-25-2025 23:48-0400 Systolic blood pressure 119 mm[Hg] Dr. Rashi Lee DO Work Phone: [facility] 04-25-2025 21:06-0400 Body height 177.[address] Rashi Lee DO Work Phone: [facility] 04-25-2025 21:06-0400 Body mass index (BMI) [Ratio] 32.5 kg/m2 Dr. Rashi Lee DO Work Phone: [facility] 04-25-2025 21:06-0400 Body weight 102.[address] Rashi Lee DO Work Phone: [facility] 04-25-2025 15:12-0400 Body mass index (BMI) [Ratio] 32.48 kg/m2 Erwin Garcia MD Work Phone: [facility] 04-25-2025 15:12-0400 Body temperature 98.71 [degF] Erwin Garcia MD Work Phone: [facility] 04-25-2025 15:12-0400 Body weight 102.9 kg Erwin Garcia MD Work Phone: [facility] 04-25-2025 15:12-0400 Diastolic blood pressure 80 mm[Hg] Erwin Garcia MD Work Phone: [facility] 04-25-2025 15:12-0400 Heart rate 68 /min Erwin Garcia MD Work Phone: [facility] 04-25-2025 15:12-0400 Respiratory rate 16 /min Erwin Garcia MD Work Phone: [facility] 04-25-2025 15:12-0400 Systolic blood pressure 132 mm[Hg] Erwin Garcia MD Work Phone: [facility] 04-24-2025 00:44-0400 Diastolic blood pressure 64 mm[Hg] Justina Kim MD Work Phone: [facility] 04-24-2025 00:44-0400 Heart rate 70 /min Justina Kim MD Work Phone: [facility] 04-24-2025 00:44-0400 Respiratory rate 12 /min Justina Kim MD Work Phone: [facility] 04-24-2025 00:44-0400 SaO2% (BldA) [Mass fraction] 95 % Justina Kim MD Work Phone: [facility] 04-24-2025 00:44-0400 Systolic blood pressure 137 mm[Hg] Justina Kim MD Work Phone: [facility] 04-23-2025 22:01-0400 Body mass index (BMI) [Ratio] 32.43 kg/m2 Justina Kim MD Work Phone: [facility] 04-23-2025 22:01-0400 Body temperature 97.81 [degF] Justina Kim MD Work Phone: [facility] 04-23-2025 22:01-0400 Body weight 102.51 kg Justina Kim MD Work Phone: [facility] 03-18-2025 09:11-0400 Body height 178 cm Erwin Garcia MD Work Phone: [facility] 03-18-2025 09:11-0400 Body mass index (BMI) [Ratio] 32.41 kg/m2 Erwin Garcia MD Work Phone: [facility] 03-18-2025 09:11-0400 Body temperature 98.1 [degF] Erwin Garcia MD Work Phone: [facility] 03-18-2025 09:11-0400 Body weight 102.7 kg Erwin Garcia MD Work Phone: [facility] 03-18-2025 09:11-0400 Diastolic blood pressure 72 mm[Hg] Erwin Garcia MD Work Phone: [facility] 03-18-2025 09:11-0400 Heart rate 77 /min Erwin Garcia MD Work Phone: [facility] 03-18-2025 09:11-0400 SaO2% (BldA) [Mass fraction] 99 % Erwin Garcia MD Work Phone: [facility] 03-18-2025 09:11-0400 Systolic blood pressure 112 mm[Hg] Erwin Garcia MD Work Phone: [facility] 02-27-2025 08:05-0400 Inhaled oxygen flow rate 2 L/min Dr. Rashi Lee DO Work Phone: [facility] 02-27-2025 08:01-0400 Body temperature 98.4 [degF] Dr. Rashi Lee DO Work Phone: [facility] 02-27-2025 08:01-0400 Diastolic blood pressure 73 mm[Hg] Dr. Rashi Lee DO Work Phone: [facility] 02-27-2025 08:01-0400 Heart rate 71 /min Dr. Rashi Lee DO Work Phone: [facility] 02-27-2025 08:01-0400 Respiratory rate 14 /min Dr. Rashi Lee DO Work Phone: [facility] 02-27-2025 08:01-0400 SaO2% (BldA) [Mass fraction] 94 % Dr. Rashi Lee DO Work Phone: [facility] 02-27-2025 08:01-0400 Systolic blood pressure 138 mm[Hg] Dr. Rashi Lee DO Work Phone: 8(352)198-565376 [place] [address] 02-25-2025 11:29-0400 Body height 177.[address] Rashi Lee DO Work Phone: 1(973)896-974776 [place] [address] 02-25-2025 11:29-0400 Body mass index (BMI) [Ratio] 33 kg/m2 Dr. Rashi Lee DO Work Phone: 3(665)076-563476 [place] [address] 02-25-2025 11:29-0400 Body weight 104.[address] Rashi Lee DO Work Phone: 2(412)123-261676 [place] [address] 02-07-2025 09:39-0400 Body mass index (BMI) [Ratio] 33.5 kg/m2 Dr. Rashi Lee DO Work Phone: 2(305)319-967476 [place] [address] 02-07-2025 09:39-0400 Body weight 106.[address] Rashi Lee DO Work Phone: 4(248)138-698276 [place] [address] 02-07-2025 09:39-0400 Diastolic blood pressure 75 mm[Hg] Dr. Rashi Lee DO Work Phone: 3(178)592-391361 [place] [address] 02-07-2025 09:39-0400 Heart rate 84 /min Dr. Rashi Lee DO Work Phone: 5(842)071-895361 [place] [address] 02-07-2025 09:39-0400 Respiratory rate 17 /min Dr. Rashi Lee DO Work Phone: 6(305)968-901161 [place] [address] 02-07-2025 09:39-0400 SaO2% (BldA) [Mass fraction] 95 % Dr. Rashi Lee DO Work Phone: 5(234)612-946061 [place] [address] 02-07-2025 09:39-0400 Systolic blood pressure 115 mm[Hg] Dr. Rashi Lee DO Work Phone: 7(758)555-667961 [place] [address] 01-31-2025 17:53-0400 Body temperature 98.1 [degF] Dr. Rashi Lee DO Work Phone: 3(008)504-661661 [place] [address] 01-31-2025 17:53-0400 Diastolic blood pressure 78 mm[Hg] Dr. Rashi Lee DO Work Phone: [facility] 01-31-2025 17:53-0400 Heart rate 65 /min Dr. Rashi Lee DO Work Phone: [facility] 01-31-2025 17:53-0400 Respiratory rate 15 /min Dr. Rashi Lee DO Work Phone: [facility] 01-31-2025 17:53-0400 SaO2% (BldA) [Mass fraction] 93 % Dr. Rashi Lee DO Work Phone: 8(601)593-054361 [place] [address] 01-31-2025 17:53-0400 Systolic blood pressure 137 mm[Hg] Dr. Rashi Lee DO Work Phone: 2(143)658-103274 [address] 01-31-2025 10:04-0400 Body height 177.[address] Rashi Lee DO Work Phone: 8(435)682-183261 [place] [address] 01-31-2025 10:04-0400 Body mass index (BMI) [Ratio] 34.1 kg/m2 Dr. Rashi Lee DO Work Phone: [facility] 01-31-2025 10:04-0400 Body weight 107.[address] Rashi Lee DO Work Phone: [facility] 03-18-2024 09:17-0400 Body height 177.8 cm Erwin Garcia MD Work Phone: [facility] 03-18-2024 09:17-0400 Body mass index (BMI) [Ratio] 32.14 kg/m2 Erwin Garcia MD Work Phone: [facility] 03-18-2024 09:17-0400 Body temperature 97.3 [degF] Erwin Garcia MD Work Phone: [facility] 03-18-2024 09:17-0400 Body weight 101.61 kg Erwin Garcia MD Work Phone: [facility] 03-18-2024 09:17-0400 Diastolic blood pressure 70 mm[Hg] Erwin Garcia MD Work Phone: [facility] 03-18-2024 09:17-0400 Heart rate 76 /min Erwin Garcia MD Work Phone: [facility] 03-18-2024 09:17-0400 Respiratory rate 18 /min Erwin Garcia MD Work Phone: [facility] 03-18-2024 09:17-0400 Systolic blood pressure 118 mm[Hg] Erwin Garcia MD Work Phone: [facility] 01-13-2024 10:31-0500 Body weight 103.87 kg Elisha Velásquez REGULATION SUPERVISOR.FITTER/WELDER Work Phone: [facility] 01-13-2024 10:31-0500 Diastolic blood pressure 80 mm[Hg] Elisha Langs REGULATION SUPERVISOR.FITTER/WELDER Work Phone: [facility] 01-13-2024 10:31-0500 Heart rate 71 /min Elishazuleika Velásquez REGULATION SUPERVISOR.FITTER/WELDER Work Phone: [facility] 01-13-2024 10:31-0500 SaO2% (BldA) [Mass fraction] 94 % Elisha Velásquez REGULATION SUPERVISOR.FITTER/WELDER Work Phone: [facility] 01-13-2024 10:31-0500 Systolic blood pressure 126 mm[Hg] Elisha Velásquez REGULATION SUPERVISOR.FITTER/WELDER Work Phone: [facility] 01-01-2024 09:20-0500 Body height 177.8 cm Trell Goldman REGULATION SUPERVISOR-GEOTECHNICAL FIELD TECHNICIAN Work Phone: [facility] 01-01-2024 09:20-0500 Body mass index (BMI) [Ratio] 31.57 kg/m2 Trell Goldman APRN-GEOTECHNICAL FIELD TECHNICIAN Work Phone: [facility] 01-01-2024 09:20-0500 Body temperature 98.71 [degF] Trell Goldman APRN-GEOTECHNICAL FIELD TECHNICIAN Work Phone: [facility] 01-01-2024 09:20-0500 Body weight 99.79 kg Trell Goldman REGULATION SUPERVISOR-GEOTECHNICAL FIELD TECHNICIAN Work Phone: [facility] 01-01-2024 09:20-0500 Diastolic blood pressure 74 mm[Hg] Trell Goldman REGULATION SUPERVISOR-GEOTECHNICAL FIELD TECHNICIAN Work Phone: [facility] 01-01-2024 09:20-0500 Heart rate 74 /min Trell Goldman REGULATION SUPERVISOR-GEOTECHNICAL FIELD TECHNICIAN Work Phone: [facility] 01-01-2024 09:20-0500 Respiratory rate 16 /min Trell Goldman REGULATION SUPERVISOR-GEOTECHNICAL FIELD TECHNICIAN Work Phone: [facility] 01-01-2024 09:20-0500 SaO2% (BldA) [Mass fraction] 94 % Trell Goldman REGULATION SUPERVISOR-GEOTECHNICAL FIELD TECHNICIAN Work Phone: [facility] 01-01-2024 09:20-0500 Systolic blood pressure 111 mm[Hg] Trell Goldman REGULATION SUPERVISOR-GEOTECHNICAL FIELD TECHNICIAN Work Phone: [facility] 05-28-2023 10:28-0400 Body weight 100.7 kg Isael Lebron REGULATION SUPERVISOR.GEOTECHNICAL FIELD TECHNICIAN Work Phone: [facility] 05-28-2023 10:28-0400 Diastolic blood pressure 78 mm[Hg] Isael Glendale REGULATION SUPERVISOR.GEOTECHNICAL FIELD TECHNICIAN Work Phone: [facility] 05-28-2023 10:28-0400 Heart rate 50 /min Isael Glendale REGULATION SUPERVISOR.GEOTECHNICAL FIELD TECHNICIAN Work Phone: [facility] 05-28-2023 10:28-0400 Respiratory rate 17 /min Isael Glendale REGULATION SUPERVISOR.GEOTECHNICAL FIELD TECHNICIAN Work Phone: [facility] 05-28-2023 10:28-0400 SaO2% (BldA) [Mass fraction] 98 % Isael Glendale REGULATION SUPERVISOR.GEOTECHNICAL FIELD TECHNICIAN Work Phone: [facility] 05-28-2023 10:28-0400 Systolic blood pressure 122 mm[Hg] Isael Glendale REGULATION SUPERVISOR.GEOTECHNICAL FIELD TECHNICIAN Work Phone: [facility] 03-13-2023 08:03-0400 Body height 180.3 cm Erwin Garcia MD Work Phone: [facility] 03-13-2023 08:03-0400 Body weight 102.51 kg Erwin Garcia MD Work Phone: [facility] 03-13-2023 08:03-0400 Diastolic blood pressure 70 mm[Hg] Erwin Garcia MD Work Phone: [facility] 03-13-2023 08:03-0400 Heart rate 68 /min Erwin Garcia MD Work Phone: [facility] 03-13-2023 08:03-0400 Respiratory rate 16 /min Erwin Garcia MD Work Phone: [facility] 03-13-2023 08:03-0400 Systolic blood pressure 118 mm[Hg] Erwin Garcia MD Work Phone: [facility] 04-04-2022 10:29-0400 Body temperature 97.3 [degF] Madeline Saucedo REGULATION SUPERVISOR.GEOTECHNICAL FIELD TECHNICIAN Work Phone: [facility] 04-04-2022 10:29-0400 Body weight 101.24 kg Madeline Saucedo REGULATION SUPERVISOR.GEOTECHNICAL FIELD TECHNICIAN Work Phone: [facility] 04-04-2022 10:29-0400 Diastolic blood pressure 62 mm[Hg] Madeline Saucedo REGULATION SUPERVISOR.GEOTECHNICAL FIELD TECHNICIAN Work Phone: [facility] 04-04-2022 10:29-0400 Heart rate 97 /min Madeline Sheryl REGULATION SUPERVISOR.GEOTECHNICAL FIELD TECHNICIAN Work Phone: [facility] 04-04-2022 10:29-0400 Respiratory rate 21 /min Madeline Sheryl REGULATION SUPERVISOR.GEOTECHNICAL FIELD TECHNICIAN Work Phone: [facility] 04-04-2022 10:29-0400 SaO2% (BldA) [Mass fraction] 96 % Madeline Sheryl REGULATION SUPERVISOR.GEOTECHNICAL FIELD TECHNICIAN Work Phone: [facility] 04-04-2022 10:29-0400 Systolic blood pressure 118 mm[Hg] Madeline Saucedo REGULATION SUPERVISOR.GEOTECHNICAL FIELD TECHNICIAN Work Phone: [facility] 03-08-2022 13:59-0400 Body weight 102.06 kg Khadijah Older REGULATION SUPERVISOR.GEOTECHNICAL FIELD TECHNICIAN Work Phone: [facility] 03-08-2022 13:59-0400 Diastolic blood pressure 76 mm[Hg] Khadijah Older REGULATION SUPERVISOR.GEOTECHNICAL FIELD TECHNICIAN Work Phone: [facility] 03-08-2022 13:59-0400 Heart rate 74 /min Khadijah Older REGULATION SUPERVISOR.GEOTECHNICAL FIELD TECHNICIAN Work Phone: [facility] 03-08-2022 13:59-0400 Respiratory rate 12 /min Khadijah Older REGULATION SUPERVISOR.GEOTECHNICAL FIELD TECHNICIAN Work Phone: [facility] 03-08-2022 13:59-0400 SaO2% (BldA) [Mass fraction] 95 % Khadijah Older REGULATION SUPERVISOR.GEOTECHNICAL FIELD TECHNICIAN Work Phone: [facility] 03-08-2022 13:59-0400 Systolic blood pressure 116 mm[Hg] Khadijah Older REGULATION SUPERVISOR.GEOTECHNICAL FIELD TECHNICIAN Work Phone: [facility] Encounters Encounter Date Encounter Type Care Provider Facility Start: 04-27-2025 ambulatory Elana Richmond Facilit y:[facility] Start: 04-27-2025 Non-patient / Non-visit Dr. Nacho claudio DO [facility] Work Phone: Start: 04-26-2025 Non-patient / Non-visit Curtis Oreilly nd [facility] Start: 04-26-2025 Non-patient / Non-visit Dr. Nacho claudio DO [facility] Work Phone: Start: 04-26-2025 End: 04-27-2025 Evaluation and management of inpatient Dr. Jose Mora MD -[facility] Work Phone: Start: 04-25-2025 ambulatory Jose Mora Facility:[facility] Start: 04-25-2025 Non-patient / Non-visit Dr. Jose resendiz MD -[facility] Work Phone: Start: 04-25-2025 End: 04-25-2025 Office outpatient visit 15 minutes Erwin Garcia MD Work Phone: [facility] Comment on above: Calculus of gallblad yaritza without cholecystitis without obstruction (Primary Dx) Start: 04-25-2025 End: 04-25-2025 ambulatory ERWIN GARCIA Facility:[facility] Start: 04-23-2025 End: 04-24-2025 Emergency department patient visit Justina Kim MD Work Phone: [facility] Comment on above: Calculus of gallblad yaritza without cholecystitis without obstruction (Primary Dx); Biliary colic Start: 03-18-2025 End: 03-18-2025 ambulatory ERWIN GARCIA Facility:[facility] Start: 03-18-2025 End: 03-18-2025 Patient encounter [...] Start: 03-15-2025 End: 03-15-2025 ambulatory KHADIJAH RAMAN Facility:[facility] Start: 03-14-2025 End: 03-14-2025 Telephone encounter Erwin Garcia MD Work Phone: [facility] Comment on above: Lab Orders Start: 03-02-2025 End: 03-02-2025 Refill Erwin Garcia MD Work Phone: [facility] Comment on above: Refill Request Start: 02-25-2025 End: 02-27-2025 ambulatory Los Romero Facility:[facility] Start: 02-25-2025 End: 02-27-2025 Evaluation and management of inpatient Dr. Los Romero MD -[facility] Work Phone: Start: 02-25-2025 End: 02-27-[address] Rashi Lee DO Work Phone: [facility] Work Phone: Start: 02-15-2025 End: 02-15-2025 ambulatory Los Romero Facility:[facility] Start: 02-15-2025 End: 02-15-2025 Non-patient / Non-visit Dr. Migel Meléndez MD -[facility] Work Phone: Start: 02-14-2025 End: 02-14-[address] Elana Richmond MD -[facility] Work Phone: Start: 02-14-2025 End: 02-14-2025 ambulatory [facility] Facility:[facility] Start: 02-07-2025 End: 02-07-[address] Elana Richmond MD -[facility] Work Phone: Start: 02-07-2025 End: 02-07-2025 ambulatory [facility] Facility:[facility] Start: 01-31-2025 Non-patient / Non-visit Dr. Paulino Richmond MD -[facility] Start: 01-31-2025 End: 01-31-2025 ambulatory Erwin Garcia MD Work Phone: [facility] [place] Comment on above: Abdominal Pain Start: 01-31-2025 End: 01-31-2025 Emergency department patient visit Dr. Rashi Lee DO Work Phone: -Emergency Department Work Phone: Start: 10-25-2024 End: 10-25-2024 Refill Erwin Garcia MD Work Phone: [facility] [place] Comment on above: Refill Request Start: 07-08-2024 End: 07-09-2024 Refill Erwin Garcia MD Work Phone: [facility] [place] Comment on above: Refill Request Start: 06-24-2024 Telephone encounter Erwin cadena MD Work Phone: [facility] Comment on above: Patient Question Start: 06-14-2024 End: 06-14-2024 Patient encounter procedure Isael Lebron REGULATION SUPERVISOR.GEOTECHNICAL FIELD TECHNICIAN Work Phone: Pulmonary Medicine Comment on above: Multiple lung nodule s (Primary Dx); Encounter for screening for lung cancer; Tobacco use current Start: 06-14-2024 End: 06-14-2024 ambulatory ISAEL LEBRON Facility:[facility] Start: 06-14-2024 End: 06-14-2024 Subsequent hospital visit by physician Ct [facility] Wstr (I-Stat) Work Phone: Cat Scan Comment on above: Encounter for screen ing for lung cancer [Z12.2] Start: 03-18-2024 End: 03-18-2024 Patient encounter procedure Erwin Garcia MD Work Phone: Internal [facility] [place] Comment on above: Medicare annual well ness visit, subsequent (Primary Dx); Hyperlipidemia, unspecified hyperlipidemia type; Stage 3a chronic kidney disease (HCC); Impaired fasting glucose; Benign neoplasm of colon, unspecified part of colon; Need for COVID-19 vaccine Start: 03-15-2024 Telephone encounter Erwin cadena MD Work Phone: [facility] [place] Comment on above: Lab Orders Start: 01-13-2024 Telephone encounter Elisha todd REGULATION SUPERVISOR.FITTER/WELDER Work Phone: [facility] Medicine [place] Start: 01-13-2024 End: 01-13-2024 Office outpatient visit 15 minutes Elisha Velásquez APRN.FITTER/WELDER Work Phone: Internal Medicine [place] Comment on above: Acute pain of right knee (Primary Dx) Start: 01-01-2024 End: 01-01-2024 Subsequent hospital visit by physician Prakash X-Ray 1 [facility] Comment on above: Injury of right knee , initial encounter Start: 01-01-2024 End: 01-01-2024 Patient encounter procedure Trell Goldman REGULATION SUPERVISOR-GEOTECHNICAL FIELD TECHNICIAN Work Phone: [facility] Comment on above: Injury of right knee , initial encounter (Primary Dx) Start: 12-22-2023 Refill Erwin fox MD Work Phone: Internal Medicine [place] Comment on above: Refill Request Start: 07-25-2023 Refill Erwin fox MD Work Phone: [facility] [place] Comment on above: Refill Request Start: 06-13-2023 Telephone encounter Isael pastrana REGULATION SUPERVISOR.GEOTECHNICAL FIELD TECHNICIAN Work Phone: [facility] Comment on above: Results Start: 06-10-2023 End: 06-10-2023 ambulatory [facility] Work Phone: Start: 06-10-2023 End: 06-10-2023 Patient encounter procedure [facility] Work Phone: Start: 06-02-2023 Telephone encounter Erwin cadena MD Work Phone: Internal Medicine [place] Comment on above: Results Start: 05-31-2023 Orders Only Erwin fox MD Work Phone: Internal Medicine [place] Comment on above: Hydroureteronephrosi s (Primary Dx); Stage 3a chronic kidney disease (HCC) Start: 05-28-2023 End: 05-28-2023 Patient encounter procedure Isael Lebron REGULATION SUPERVISOR.GEOTECHNICAL FIELD TECHNICIAN Work Phone: Pulmonary Medicine Comment on above: Encounter for screen ing for lung cancer (Primary Dx); Tobacco use current Start: 03-13-2023 End: 03-13-2023 Patient encounter procedure Erwin Garcia MD Work Phone: Internal Medicine [place] Comment on above: Medicare annual well ness visit, subsequent (Primary Dx); Hyperlipidemia, unspecified hyperlipidemia type; Tobacco use disorder; Stage 3a chronic kidney disease (HCC); Impaired fasting glucose; BPH with obstruction/lower urinary tract symptoms; Special screening for malignant neoplasms, colon Start: 01-02-2023 Refill Erwin fox MD Work Phone: Internal Medicine [place] Comment on above: Refill Request Start: 12-23-2022 Refill Erwin fox MD Work Phone: Internal Medicine [place] Comment on above: Refill Request Orders Start: 11-05-2022 End: 11-05-2022 Emergency department patient visit Ms. Trell Goldman [facility]:[id number] Start: 04-05-2022 Telephone encounter Aaron Reilly MD Work Phone: [facility] Comment on above: Results (COVID+) Start: 04-04-2022 End: 04-04-2022 Patient encounter procedure Madeline Saucedo MARIA GUADALUPE.GEOTECHNICAL FIELD TECHNICIAN Work Phone: [facility] Comment on above: Exposure to COVID-19 virus (Primary Dx); Upper respiratory symptom Start: 03-08-2022 End: 03-08-2022 Patient encounter procedure Khadijah Cramer MARIA GUADALUPE.GEOTECHNICAL FIELD TECHNICIAN Work Phone: Internal Medicine [place] Comment on above: BPH with obstruction /lower urinary tract symptoms (Primary Dx); Stage 3a chronic kidney disease (HCC); Hyperlipidemia, unspecified hyperlipidemia type; Impaired fasting glucose; Obesity, Class I, BMI 30-34.9 Procedures Date Procedure Procedure Detail Performing Clinician Start: 04-27-[address] Fabiola Lee DO Work Phone: Start: 04-26-2025 End: 04-26-[address] Rashi Lee DO Work Phone: Start: 04-26-[address] Rashi Lee DO Work Phone: Start: 04-25-2025 US scan of gallbladder Dr. Rashi Lee DO Work Phone: Start: 04-25-[address] Fabiola Lee DO Work Phone: Start: 04-23-2025 Assay of troponin quantitative Justina gómez MD Work Phone: Start: 04-23-2025 Ct abdomen & pelvis w/o contrast material Justina Kim MD Work Phone: Start: 04-23-2025 Radiologic exam chest single view Justina Kim MD Work Phone: Start: 04-23-2025 Comprehensive metabolic panel Justina estrada MD Work Phone: Start: 04-23-2025 Troponin I.cardiac panel - Serum or Plasma by High sensitivity method Justina Kim MD Work Phone: Start: 03-18-2025 Adult depression screening assessment Erwin Garcia MD Work Phone: Start: 03-15-2025 Lipid 1996 panel - Serum or Plasma Michael Garcia MD Work Phone: Start: 02-27-[address] Fabiola Lee DO Work Phone: Start: 02-25-[address] Rashi Lee DO Work Phone: Start: 01-31-[address] Rashi Lee DO Work Phone: Start: 01-31-[address] Rashi kim DO Work Phone: Start: 01-31-2025 Urnls dip stick/tablet reagent auto microscopy Dr. Rashi Lee DO Work Phone: Start: 01-31-[address] Fabiola Lee DO Work Phone: Start: 01-31-2025 Computed tomography of abdomen and pelvis with contrast Dr. Rashi Lee DO Work Phone: Start: 03-18-2024 [employer]Muzzley COVID-19 VACCINE (2022- SEASON) AGE 12+ YR Erwin aGrcia MD Work Phone: Start: 03-18-2024 Adult depression screening assessment Isael Lebron REGULATION SUPERVISOR.GEOTECHNICAL FIELD TECHNICIAN Work Phone: Start: 03-16-2024 Lipid 1996 panel - Serum or Plasma Michael Garcia MD Work Phone: Start: 01-01-2024 Radiologic examination knee 3 views Trell Goldman REGULATION SUPERVISOR-GEOTECHNICAL FIELD TECHNICIAN Work Phone: Start: 06-12-2023 Colonoscopy Isael Brownpster REGULATION SUPERVISOR.GEOTECHNICAL FIELD TECHNICIAN Work Phone: Start: 02-17-2023 Lipid 1996 panel - Serum or Plasma Michael Garcia MD Work Phone: Start: 03-08-2022 Adult depression screening assessment Khadijah Older REGULATION SUPERVISOR.GEOTECHNICAL FIELD TECHNICIAN Work Phone: Start: 08-19-2018 Colonoscopy Khadijah Older REGULATION SUPERVISOR.GEOTECHNICAL FIELD TECHNICIAN Work Phone: Plan of Treatment Date Care Activity Detail Author Start: 06-12-2033 Screening for malign ant neoplasm of colon [facility] Start: 03-15-2030 Lipid panel Lipid Screening [facility] Start: 03-16-2029 Lipid panel Lipid Screening [facility] Start: 06-12-2028 Colonoscopy COLONOSCOPY [facility] Start: 06-12-2028 COLORECTAL CANCER SCREENING COLORECTAL CANCER SCREENING [facility] Start: 06-12-2028 Screening for malign ant neoplasm of colon [facility] Start: 04-23-2028 Diabetes Screening Diabetes Screenin g [facility] Start: 03-15-2028 Diabetes Screening Diabetes Screenin g [facility] Start: 02-18-2028 Lipid panel Lipid Screening [facility] Start: 02-18-2028 LIPID SCREEN LIPID SCREEN [facility] Start: 04-04-2027 DTaP/Tdap/Td Vaccine s (2 - Td or Tdap) DTaP/Tdap/Td Vaccines (2 - Td or Tdap) [facility] Start: 04-04-2027 Urine microalbumin profile [facility] Start: 03-16-2027 Diabetes Screening Diabetes Screenin g [facility] Start: 02-26-2027 LIPID SCREEN LIPID SCREEN [facility] Start: 04-25-2026 Annual PCP Team Skidder Driver faith Disease Visit Annual PCP Team Chronic Disease Visit [facility] Start: 04-23-2026 Complete blood count Hemoglobin/Avelino tocrit [facility] Start: 04-23-2026 Creatinine measurement Serum Creatin ine [facility] Start: 03-22-2026 End: 03-22-2026 Patient encounter procedure 03/22/2026 9:20 AM EDT Office Visit [facility] [place] [address] [place] [address] Erwin Garcia MD [address] [place] [address] medicare wellness [facility] [place] Comment on above: medicare wellness Start: 03-18-2026 Annual PCP Team Skidder Driver faith Disease Visit Annual PCP Team Chronic Disease Visit [facility] Start: 03-18-2026 Anxiety Screening Anxiety Screening [facility] Start: 03-18-2026 Depression Screening Depression Scre ening [facility] Start: 03-15-2026 Complete blood count Hemoglobin/Avelino tockyt [facility] Start: 03-15-2026 Creatinine measurement Serum Creatin ine [facility] Start: 03-15-2026 Hemoglobin A1c measurement Yael negro: Hemoglobin A1C [facility] Start: 02-17-2026 DIABETES SCREEN DIABETES SCREEN [facility] Start: 02-17-2026 Diabetes Screening Diabetes Screenin g [facility] Start: 06-20-2025 End: 06-20-2025 Patient encounter procedure Cat Scan Comment on above: Yearly LDCT Yearly LCS Start: 06-14-2025 Screening for malign ant neoplasm of lung Lung Cancer Screening [facility] Start: 04-27-2025 Patient discharge [facility] Start: 04-26-2025 Triacylglycerol lipa se measurement [facility] Start: 04-26-2025 Ambulation without limitation [facility] Start: 04-26-2025 Assessment of risk o f venous thromboembolism [facility] Start: 04-26-2025 Insertion of cathete r into peripheral vein [facility] Start: 04-26-2025 Oxygen therapy [facility] Start: 04-26-2025 Providing care accor ding to standard [facility] Start: 04-26-2025 Referral to gastroenterology service [facility] Start: 04-26-2025 Referral to general surgeon [facility] Start: 04-26-2025 [facility] Start: 04-26-2025 Following clinical p athway protocol [facility] Start: 04-26-2025 Admission procedure [facility] Start: 04-26-2025 Verification routine [facility] Start: 04-25-2025 Hospital admission, emergency, from emergency room, medical nature [facility] Start: 04-25-2025 [facility] Start: 03-18-2025 Annual PCP Team Skidder Driver faith Disease Visit Annual PCP Team Chronic Disease Visit [facility] Start: 03-18-2025 Anxiety Screening Anxiety Screening [facility] Start: 03-18-2025 Depression Screening Depression Scre ening [facility] Start: 03-18-2025 End: 03-18-2025 Patient encounter procedure 03/18/2025 9:00 AM EDT Office Visit [facility] [place] [address] [place] [address] Erwin Garcia MD [address] [place], [place] [address] Medicare Wellness [facility] [place] Comment on above: Medicare Wellness Start: 03-16-2025 Complete blood count Hemoglobin/Avelino tocrit [facility] Start: 03-16-2025 Creatinine measurement Serum Creatin ine [facility] Start: 03-14-2025 End: 06-13-2025 CBC panel - Blood by Automated count COMPLETE BLOOD COUNT Lab Routine Stage 3a chronic kidney disease (HCC) Expected: 03/14/2025, Expires: 06/13/2025 [facility] Comment on above: Expected: 03/14/2025 , Expires: 06/13/2025 Start: 03-14-2025 End: 06-13-2025 Comprehensive metabolic 2000 panel - Serum or Plasma COMPREHENSIVE METABOLIC PANEL Lab Routine Stage 3a chronic kidney disease (HCC) Hyperlipidemia, unspecified hyperlipidemia type Expected: 03/14/2025, Expires: 06/13/2025 [facility] Comment on above: Expected: 03/14/2025 , Expires: 06/13/2025 Start: 03-14-2025 End: 06-13-2025 Hemoglobin A1c in Blood HEMOGLOBIN A1C Lab Routine Impaired fasting glucose Expected: 03/14/2025, Expires: 06/13/2025 [facility] Work Phone: Comment on above: Expected: 03/14/2025 , Expires: 06/13/2025 Start: 03-14-2025 End: 06-13-2025 Lipid 1996 panel - Serum or Plasma LIPID PANEL, FASTING Lab Routine Hyperlipidemia, unspecified hyperlipidemia type Expected: 03/14/2025, Expires: 06/13/2025 [facility] Comment on above: Expected: 03/14/2025 , Expires: 06/13/2025 Start: 02-27-2025 Patient discharge [facility] Start: 02-27-2025 Removal of urinary catheter [facility] Start: 02-27-2025 Oxygen therapy [facility] Start: 02-26-2025 DIABETES SCREEN DIABETES SCREEN [facility] Start: 02-26-2025 Measuring intake and output [facility] Start: 02-26-2025 Removal of urinary catheter [facility] Start: 02-25-2025 Anes xtrprtl lower a bd ur tract renal don nfrct ANESTH KIDNEY/URETER SURG [facility] Start: 02-25-2025 Laparoscopy nephrect pablo w/total ureterectomy LAPARO REMOVE W/URETER [facility] Start: 02-25-2025 Application of intermittent pneumatic compression device [facility] Start: 02-25-2025 Following clinical p athway protocol [facility] Start: 02-25-2025 Measuring intake and output [facility] Start: 02-25-2025 Admission procedure [facility] Start: 02-25-2025 Assessment of risk o f venous thromboembolism [facility] Start: 02-25-2025 Following clinical p athway protocol [facility] Start: 02-25-2025 End: 02-25-2025 Provision of activity privileges [facility] Start: 02-25-2025 Taking patient vital signs [facility] Start: 02-25-2025 Vital signs measurements [facility] Start: 02-25-2025 End: 02-25-2025 [facility] Start: 01-31-2025 [facility] Start: 01-31-2025 Bacteria identified in Urine by Culture Urine Culture [facility] Start: 01-31-2025 [facility] Start: 11-17-2024 Advance Directive Discussion Advance Directive Discussion [facility] Start: 07-18-2024 Covid-19 Vaccine ( season) Covid-19 Vaccine () [facility] Start: 07-18-2024 Influenza vaccination Influenza Vacc ine (#1) [facility] Start: 06-14-2024 End: 06-14-2024 Patient encounter procedure Cat Scan Comment on above: Annual LCS Start: 06-13-2024 End: 07-12-2024 CT LUNG SCREEN WO IVCON CT LUNG SCREEN WO IVCON Radiology Routine Encounter for screening for lung cancer Tobacco use current Expected: 06/13/2024, Expires: 07/12/2024 [facility] Work Phone: Comment on above: Expected: 06/13/2024 , Expires: 07/12/2024 Start: 06-09-2024 Influenza vaccination LUNG CANCER SC REENING [facility] Start: 06-09-2024 Screening for malign ant neoplasm of lung Lung Cancer Screening [facility] Start: 03-18-2024 End: 03-18-2024 Patient encounter procedure 03/18/2024 9:20 AM EDT Office Visit [facility] [place] [address] [place], [place] [id number] Erwin Garcia MD [address] [place], [place] [id number] Annual Medicare Wellness w/follow-up [facility] [place] Comment on above: Annual Medicare Well ness w/follow-up Start: 03-15-2024 End: 06-14-2024 CBC panel - Blood by Automated count COMPLETE BLOOD COUNT Lab Routine Stage 3a chronic kidney disease (HCC) Expected: 03/15/2024, Expires: 06/14/2024 [facility] Work Phone: Comment on above: Expected: 03/15/2024 , Expires: 06/14/2024 Start: 03-15-2024 End: 06-14-2024 Comprehensive metabolic 2000 panel - Serum or Plasma COMPREHENSIVE METABOLIC PANEL Lab Routine Stage 3a chronic kidney disease (HCC) Hyperlipidemia, unspecified hyperlipidemia type Expected: 03/15/2024, Expires: 06/14/2024 [facility] Comment on above: Expected: 03/15/2024 , Expires: 06/14/2024 Start: 03-15-2024 End: 06-14-2024 Hemoglobin A1c in Blood HEMOGLOBIN A1C Lab Routine Impaired fasting glucose Expected: 03/15/2024, Expires: 06/14/2024 [facility] Comment on above: Expected: 03/15/2024 , Expires: 06/14/2024 Start: 03-15-2024 End: 06-14-2024 Lipid 1996 panel - Serum or Plasma LIPID PANEL BASIC Lab Routine Hyperlipidemia, unspecified hyperlipidemia type Expected: 03/15/2024, Expires: 06/14/2024 [facility] Comment on above: Expected: 03/15/2024 , Expires: 06/14/2024 Start: 03-13-2024 ANNUAL PCP TEAM LABOR MEDIATOR FAITH DISEASE VISIT ANNUAL PCP TEAM CHRONIC DISEASE VISIT [facility] Start: 02-18-2024 Complete blood count Hemoglobin/Avelino tocrit [facility] Start: 02-18-2024 Creatinine measurement Serum Creatin ine [facility] Start: 02-18-2024 Hemoglobin A1c measurement Yael betes: Hemoglobin A1C [facility] Start: 02-18-2024 HEMOGLOBIN/HEMATOCRIT HEMOGLOBIN/HEM ATOCRIT [facility] Start: 02-18-2024 SERUM CREATININE SERUM CREATININE Cl [facility] Start: 01-09-2024 Covid-19 Vaccine ( season) Covid-19 Vaccine () [facility] Start: 01-01-2024 End: 01-01-2025 XR Knee - right 3 Views XR knee right 3 views Imaging STAT Injury of right knee, initial encounter Expected: 01/01/2024, Expires: 01/01/2025 [facility] Service Area Work Phone: Comment on above: Expected: 01/01/2024 , Expires: 01/01/2025 Start: 11-17-2023 Advance Directive Discussion Advance Directive Discussion [facility] Start: 11-17-2023 Behavioral Health Screening Behavioral Health Screening [facility] Start: 11-17-2023 Depression Assessment Depression Ass essment [facility] Start: 08-19-2023 Colonoscopy COLONOSCOPY [facility] Start: 08-19-2023 COLORECTAL CANCER SCREENING COLORECTAL CANCER SCREENING [facility] Start: 07-18-2023 Covid-19 Vaccine () Covid-19 Vaccine () [facility] Start: 07-18-2023 Influenza vaccination [facility] Start: 03-08-2023 Adult depression scr eening assessment DEPRESSION SCREENING [facility] Start: 03-08-2023 ANNUAL PCP TEAM LABOR MEDIATOR FAITH DISEASE VISIT ANNUAL PCP TEAM CHRONIC DISEASE VISIT [facility] Start: 02-26-2023 HEMOGLOBIN/HEMATOCRIT HEMOGLOBIN/HEM ATOCRIT [facility] Start: 02-26-2023 SERUM CREATININE SERUM CREATININE Cl [facility] Start: 02-15-2023 End: 04-17-2023 CBC panel - Blood by Automated count CBC Lab Routine Stage 3a chronic kidney disease (HCC) Expected: 02/15/2023 (Approximate), Expires: 04/17/2023 [facility] Work Phone: Comment on above: Expected: 02/15/2023 (Approximate), Expires: 04/17/2023 Start: 02-15-2023 End: 04-17-2023 Comprehensive metabolic 2000 panel - Serum or Plasma COMP METABOLIC PANEL Lab Routine Hyperlipidemia, unspecified hyperlipidemia type Stage 3a chronic kidney disease (HCC) Expected: 02/15/2023 (Approximate), Expires: 04/17/2023 [facility] Work Phone: Comment on above: Expected: 02/15/2023 (Approximate), Expires: 04/17/2023 Start: 02-15-2023 End: 04-17-2023 Hemoglobin A1c in Blood HGB A1C Lab Routine Impaired fasting glucose Expected: 02/15/2023 (Approximate), Expires: 04/17/2023 [facility] Work Phone: Comment on above: Expected: 02/15/2023 (Approximate), Expires: 04/17/2023 Start: 02-15-2023 End: 04-17-2023 Lipid 1996 panel - Serum or Plasma LIPID PANEL BASIC Lab Routine Hyperlipidemia, unspecified hyperlipidemia type Expected: 02/15/2023 (Approximate), Expires: 04/17/2023 [facility] Work Phone: Comment on above: Expected: 02/15/2023 (Approximate), Expires: 04/17/2023 Start: 12-08-2022 COVID-19 VACCINE (6 - Moderna series) COVID-19 VACCINE (6 - Moderna series) [facility] Start: 11-17-2022 ADVANCE DIRECTIVE DISCUSSION ADVANCE DIRECTIVE DISCUSSION [facility] Start: 11-17-2022 DEPRESSION ASSESSMENT DEPRESSION ASS ESSMENT [facility] Start: 07-18-2022 Influenza vaccination INFLUENZA (#1) [facility] Start: 05-10-2022 COVID-19 VACCINE (5 - Booster for Moderna series) COVID-19 VACCINE (5 - Booster for Moderna series) [facility] Start: 04-04-2022 End: 04-18-2022 Influenza virus A and B RNA and SARS-CoV-2 (COVID-19) N gene panel - Respiratory specimen by KRYSTYNA with probe detection [facility] Work Phone: Comment on above: Expected: 04/04/2022 , Expires: 04/18/2022 Start: 2017 Abdominal aortic ane urysm screening Abdominal Aortic Aneurysm (AAA) Screening [facility] Start: 2012 RSV Vaccine (1 - 1-d ose 60+ series) RSV Vaccine (1 - 1-dose 60+ series) [facility] Start: 2002 Influenza vaccination LUNG CANCER [facility] Start: 1997 COLOGUARD (FIT-DNA) COLOGUARD (FIT-D NA) [facility] Start: [address] COLONOGRAPHY [facility] Start: 1997 FECAL OCCULT BLOOD FECAL OCCULT BLOO D [facility] Start: 1997 Screening for malign ant neoplasm of colon [facility] Start: 1997 SIGMOIDOSCOPY SIGMOIDOSCOPY [facility] Start: 1970 Hepatitis C screening Hepatitis C [facility] Start: 1952 Lipid panel Lipid Panel [facility] Start: 1950 Medicare Annual Well ness Visit Medicare Annual Wellness Visit (AWV) [facility] Start: 1950 Screening for malign ant neoplasm of colon [facility] Start: 1952 Yearly Adult Physical Yearly Adult P [facility] End: 07-14-2025 CT Chest for screening WO contrast CT LUNG SCREEN WO IVCON Radiology Routine Encounter for screening for lung cancer Tobacco use current 1 Occurrences starting 06/14/2024 until 07/14/2025 [facility] Work Phone: Comment on above: 1 Occurrences starti ng 06/14/2024 until 07/14/2025 CT Chest for screeni ng WO contrast CT LUNG SCREEN WO IVCON Radiology Routine Encounter for screening for lung cancer Tobacco use current 06/14/2024 8:24 AM EDT [facility] Work Phone: End: 06-26-2024 CT LUNG SCREEN WO IVCON CT LUNG SCREEN WO IVCON Radiology Routine Encounter for screening for lung cancer Tobacco use current 1 Occurrences starting 05/28/2023 until 06/26/2024 [facility] Work Phone: Comment on above: 1 Occurrences starti ng 05/28/2023 until 06/26/2024 End: 04-23-2025 ECG 12 lead ECG 12 lead ECG STAT Once for 1 Occurrences starting 04/23/2025 until 04/23/2025 [facility] Service Area Work Phone: Comment on above: Once for 1 Occurrenc es starting 04/23/2025 until 04/23/2025 Patient Education Urinary Tract Infections in Men ED Gallstones with Biliary Colic [facility] Work Phone: Patient referral [facility] Work Phone: End: 03-13-2024 Screening colonoscopy COLONOSCOPY SCREENING Endoscopy Routine Special screening for malignant neoplasms, colon 1 Occurrences starting 03/13/2023 until 03/13/2024 [facility] Work Phone: Comment on above: 1 Occurrences starti ng 03/13/2023 until 03/13/2024 Urine culture [facility] End: 04-11-2024 US KIDNEY/BLADDER US KIDNEY/BLADDER Radiology Routine Stage 3a chronic kidney disease (HCC) 1 Occurrences starting 03/13/2023 until 04/11/2024 [facility] Work Phone: Comment on above: 1 Occurrences starti ng 03/13/2023 until 04/11/2024 [facility] Immunizations Immunization Date Immunization Notes Care Provider Rena donis 03-18-2024 COVID-19 vaccine, ag e 12+ yr, 2022- season (UXPin-Muzzley) Erwin Garcia MD Work Phone: [facility] 02-18-2024 respiratory syncytia l virus (RSV) vaccine, adjuvanted (AREXVY) Erwin Garcia MD Work Phone: [facility] 08-28-2023 Flu vaccine, quadrivalent, high-dose, preservative free, age 65y+ (FLUZONE) Trell Goldman REGULATION SUPERVISOR-GEOTECHNICAL FIELD TECHNICIAN Work Phone: [facility] Work Phone: 08-28-2023 influenza virus vacc ine, unspecified formulation Isael Lebron REGULATION SUPERVISOR.GEOTECHNICAL FIELD TECHNICIAN Work Phone: [facility] 08-23-2022 influenza, high dose seasonal, preservative-free Erwin Garcia MD Work Phone: [facility] 08-23-2022 influenza virus vacc ine, unspecified formulation Erwin Garcia MD Work Phone: [facility] 08-28-2021 influenza, high-dose , quadrivalent vaccine (FLUZONE HIGH DOSE QUADRIVALENT) Khadijah Older REGULATION SUPERVISOR.GEOTECHNICAL FIELD TECHNICIAN Work Phone: [facility] Work Phone: 08-10-2020 influenza, high dose seasonal, preservative-free Khadijah Older REGULATION SUPERVISOR.GEOTECHNICAL FIELD TECHNICIAN Work Phone: [facility] 11-24-2019 zoster vaccine recombinant Khadijah Older REGULATION SUPERVISOR.GEOTECHNICAL FIELD TECHNICIAN Work Phone: [facility] 09-23-2019 zoster vaccine recombinant Khadijah Older REGULATION SUPERVISOR.GEOTECHNICAL FIELD TECHNICIAN Work Phone: [facility] 08-04-2019 influenza, high dose seasonal, preservative-free Khadijah Older REGULATION SUPERVISOR.GEOTECHNICAL FIELD TECHNICIAN Work Phone: [facility] 08-04-2019 pneumococcal polysaccharide vaccine, 23 valent Khadijah Older REGULATION SUPERVISOR.[facility] Work Phone: [facility] 08-03-2018 influenza, high dose seasonal, preservative-free Khadijah Older REGULATION SUPERVISOR.GEOTECHNICAL FIELD TECHNICIAN Work Phone: [facility] Work Phone: 08-03-2018 pneumococcal conjuga te vaccine, 13 valent Khadijah Older REGULATION SUPERVISOR.[facility] Work Phone: [facility] Work Phone: 07-30-2017 influenza, injectabl e, quadrivalent, contains preservative Khadijah Older REGULATION SUPERVISOR.[facility] Work Phone: [facility] 04-04-2017 tetanus toxoid, redu reynaldo diphtheria toxoid, and acellular pertussis vaccine, adsorbed Khadijah Older REGULATION SUPERVISOR.[facility] Work Phone: [facility] Work Phone: 09-07-2016 influenza, injectabl e, quadrivalent, contains preservative Khadijah Older REGULATION SUPERVISOR.[facility] Work Phone: [facility] 09-07-2015 influenza, injectabl e, quadrivalent, contains preservative Khadijah Older REGULATION SUPERVISOR.[facility] Work Phone: [facility] 09-14-2013 pneumococcal polysaccharide vaccine, 23 valent Khadijah Older REGULATION SUPERVISOR.GEOTECHNICAL FIELD TECHNICIAN Work Phone: [facility] 08-31-2012 influenza virus vacc ine, unspecified formulation Khadijah Older REGULATION SUPERVISOR.GEOTECHNICAL FIELD TECHNICIAN Work Phone: [facility] 10-31-2009 novel influenza-H1N1 -09, preservative-free, injectable Erwin Garcia MD Work Phone: [facility] 03-17-2008 tetanus and diphther ia toxoids, adsorbed, preservative free, for adult use (2 Lf of tetanus toxoid and 2 Lf of diphtheria toxoid) Khadijah Older REGULATION SUPERVISOR.[facility] Work Phone: [facility] Work Phone: Payers Date Payer Category Payer Self-pay 2019 Private Health Insurance MMO MED ICARE SUPPLEMENT [id number] 2019 Unknown MMO MMO MEDICARE SUPPLEMENT [id number] 2019-Present [phone] [address] [place] [address] Indemnity [id number] 2019 Unknown MMO MMO MEDICARE SUPPLEMENT [id number] 2019-Present [phone] [address] [place] [address] Indemnity [id number] 2019 Unknown [id number] 2017 Medicare MEDICARE MEDICAR E A AND B [id number] 2017-Present [phone] [address] [address] [place] [address] Medicare [id number] 2017 Medicare [id number] 2017 Medicare [id number] 1950 Unknown [id number]. 1069 1950 Unknown [id number]. 1243 Unknown [id number] [id number]. 462 Unknown [id number] 2.16.840.1.259048.3.579.2. 462 Unknown [id number] 2.16.840.1.780972.3.579.2. 462 Unknown [id number] 2.16.840.1.049033.3.579.2. 462 Unknown [id number] 2.16.840.1.290880.3.579.2. 462 Unknown [id number] 2.16.840.1.276655.3.579.2. 462 Unknown [id number] 2.16.840.1.491013.3.579.2. 462 Unknown [id number] 2.16.840.1.172685.3.579.2. 462 Unknown [id number] 2.16.840.1.688995.3.579.2. 462 Unknown [id number] 2.16.840.1.876251.3.579.2. 462 Unknown [id number] [id number]. 462 Unknown [id number]. 462 Social History Date Type Detail Facility Start: 08-28-2021 End: 03-18-2025 Tobacco smoking status MOIS Smokes tobacco daily [facility] Work Phone: History of tobacco use Cigarette Smoker [facility] Work Phone: History of tobacco use Pipe Smoker [facility] Work Phone: Start: 03-08-2022 End: 03-18-2025 Alcohol intake Current drinker of alcohol (finding) [facility] Start: 03-08-2022 End: 05-28-2023 Alcohol intake [facility] Work Phone: Start: 04-20-2008 History SDOH Alcohol Comment 1-2 beers daily [facility] Start: 1950 Sex Assigned At Not on file [facility] Start: 03-25-2022 End: 01-01-2024 Exposure to SARS-CoV-2 (event) Not sure [facility] Work Phone: Start: 08-28-2021 End: 03-18-2025 Tobacco use and exposure Smokeless tobacco non-user [facility] Work Phone: Start: 03-13-2023 History SDOH Alcohol Frequency 5 [facility] Start: 03-13-2023 History SDOH Alcohol Std Drinks 1 [facility] Start: 03-13-2023 End: 05-28-2023 Alcohol Use Disorder Identification Test - Consumption [AUDIT-C] [facility] Work Phone: How often to you hav e a drink containing alcohol? 4 or more times a week [facility] Work Phone: How many standard dr inks containing alcohol do you have on a typical day? 1 or 2 [facility] Work Phone: How often do you hav e 6 or more drinks on 1 occasion? Never [facility] Work Phone: Adult Depression Scr eening Assessment 0 [facility] Work Phone: Start: 06-12-2015 Tobacco smoking stat us MOIS Unknown if ever smoked [facility] Start: 1950 Sex Assigned At Male [facility] Start: 06-14-2024 Tobacco Comment start age 16 [facility] Start: 01-31-2025 End: 04-26-2025 Tobacco smoking status NHIS Current Light tobacco smoker [facility] Start: 01-31-2025 End: 02-27-2025 Sex Male (finding) [facility] Medical Equipment Procedure Code Equipment Code Equipment Origin al Text Equipment Identifier Dates Robot-assisted simple nephrectomy Ligation clip, synthetic polymer, non-bioabsorbable [id number] FDA Start: 02-25-2025 Robot-assisted simple nephrectomy Ligation clip, synthetic polymer, non-bioabsorbable [id number] FDA Start: 02-25-2025 Goals Date Patient Goal Desired Activity /State Functional Status Date Assessment Result Facility 04-27-2025 Functional status Ambulates;Up ad marty [facility] Work Phone: 04-23-2025 [place] - suicide severity rating scale screener - recent [C-SSRS] [facility] Work Phone: 03-18-2025 Total score [AUDIT-C] 4 03/18/20 9:26 AM Erwin Herrera MD [facility] 02-27-2025 Functional status Bedrest [facility] Work Phone: 09-14-2014 Are you deaf, or do you have serious difficulty hearing No 09/14/2014 8:53 AM Rebeca Busch RN No [facility] 09-14-2014 Are you blind, or do you have serious difficulty seeing, even when wearing glasses No 09/14/2014 8:53 AM Rebeca Busch RN No [facility] 09-14-2014 Do you have serious difficulty walking or climbing stairs No 09/14/2014 8:53 AM Rebeca Busch RN No [facility] 09-14-2014 Do you have difficul ty dressing or bathing No 09/14/2014 8:53 AM Rebeca Busch RN No [facility] 09-14-2014 Because of a physica l, mental, or emotional condition, do you have difficulty doing errands alone such as visiting a physician's office or shopping No 09/14/2014 8:53 AM Rebeca Busch RN No [facility] Mental Status Date Assessment Result Facility 04-27-2025 Cognitive function Voice/Name [facility] Work Phone: 02-27-2025 Cognitive function Voice/Name [facility] Work Phone: 09-14-2014 Because of a physica l, mental, or emotional condition, do you have serious difficulty concentrating, remembering, or making decisions No 09/14/2014 8:53 AM Rebeca Busch RN No [facility] Clinical Notes 10-04-2008 to 04-27-2025 Note Date & Type Note Facility 04-27-2025 Discharge summary [facility] 04-27-2025 Progress note [facility] 04-27-2025 Progress note Note Date/Time April 27, 2025 11:33am [facility] Medical Records Department [address] [place] [address] Progress Note - Hospitalist 04/27/25 0802 MR#: [id number] Acct: [id number] Name: SUBHASHHOLLIE Rep #:[id number] : 1950 74 From: Nacho Garza DO PCP: Dr. Erwin Garcia MD Status:A DM IN Location: [place] [id number] Reason for Visit Reason for Visit: Diagnoses Calculus of gallbladder without cholecystitis without obstruction (04/26/25) Acute pancreatitis without necrosis or infection, unspecified (04/26/25) Unspecified jaundice (04/26/25) Elevation of levels of liver transaminase levels (04/26/25) Subjective Subjective Feeling well. Tolerating diet. Objective Data Objective Data Vital Signs: Vital Signs Temp Pulse Resp BP Pulse Ox O2 Del Method O2 Flow Rate 36.7 C 81 16 126/65 H 94 Nasal Cannula 2 04/27/25 02:53 04/27/25 02:53 04/27/25 02:53 04/27/25 02:53 04/27/25 02:53 04/27/25 02:53 04/27/25 02:53 Oxygen Flow Rate (L/min) 2 Oxygen Delivery Method Nasal Cannula Weight: 103.8 kg Body Mass Index (BMI) 32.8 Intake & Output: Intake and Output for Last 24 Hours 04/25/25 04/26/25 04/27/25 23:59 23:59 23:59 Intake Total 1000 / 1000 2670 / 2670 995 / 995 Balance 1000 / 1000 2670 / 2670 995 / 995 Lab / Micro Data 04/26/25 05:45 04/27/25 05:15 Labs: Laboratory Results - last 24 hr 04/27/25 05:15: Sodium 137, Potassium 3.9, Chloride 108, Carbon Dioxide 21.8, Anion Gap 8, BUN 15, Creatinine 1.26 H, Estim Creat Clear Calc 63.95, Est GFR (MDRD) Non-Af 61, BUN/Creatinine Ratio 11.6, Glucose 117 H, Calcium 7.7, Total Bilirubin 1.21, AST 111 H, ALT 333 H, Alkaline Phosphatase 147 H, Total Protein 5.4 L, Albumin 3.0 L, Globulin 2.3, Albumin/Globulin Ratio 1.3 Radiography Diagnostic Testing: Radiology Impression Endo Retro Cholangiopancreatogram 04/26/25 17:00 IMPRESSION: As above. Reading Location: [place] [address] Physical Exam Const alert and no apparent distress HEENT head/scalp atraumatic and moist oral mucous membranes GI normal to inspection, nondistended, normoactive bowel sounds, soft to palpation and non-tender Assessment & Plan Assessment/Plan (1) Pancreatitis: PLAN: concerning for gallstone induced pancreatitis. ERCP on 04/26: choledocholithiasis w complete removal, biliary sphincterotomy andbaloon extraction. Biliary sphincterotomy. One stent placed. General surgery on consult, no acute surgical plans. Follow up as outpt for cholecystectomy. PLAN: Plan BPH: continue tamsulosin GERD: continue PPI. VTE prophylaxis: LMWH. 04/27/25 1133 <Electronically signed by Nacho Garza DO> Cosigner Signature (if applicable): CC: ~ Signed [facility] Work Phone: 1(789) 334-123506-11-2025 Progress note Author Rad Arnold [facility] Note Date/Time April 27, 2025 7:22 am [facility] Medical Records Department [address] [place] [address] Progress Note - Surgery 04/27/25 0720 MR#: [id number] Acct: [id number] Name: HOLLIE CULLEN Rep #:[id number] : 1950 74 From: Rad reese MD PCP: Dr. Erwin Garcia MD Status:A DM IN [facility] Subjective Subjective Patient reports he is comfortable. He was tolerating liquid diet last night before being made NPO. Objective Data Objective Data Vital Signs: Vital Signs Temp Pulse Resp BP Pulse Ox O2 Del Method O2 Flow Rate 98.1 F 81 16 126/65 H 94 Nasal Cannula 2 04/27/25 02:53 04/27/25 02:53 04/27/25 02:53 04/27/25 02:53 04/27/25 02:53 04/27/25 02:53 04/27/25 02:53 Oxygen Flow Rate (L/min) 2 Oxygen Delivery Method Nasal Cannula Weight: 228 lb 13.437 oz Body Mass Index (BMI) 32.8 Intake & Output: Intake and Output for Last 24 Hours 04/25/25 04/26/25 04/27/25 23:59 23:59 23:59 Intake Total 1000 / 1000 2670 / 2670 995 / 995 Balance 1000 / 1000 2670 / 2670 995 / 995 Lab / Micro Data 04/26/25 05:45 04/27/25 05:15 Labs: Laboratory Results - last 24 hr 04/27/25 05:15: Sodium 137, Potassium 3.9, Chloride 108, Carbon Dioxide 21.8, Anion Gap 8, BUN 15, Creatinine 1.26 H, Estim Creat Clear Calc 63.95, Est GFR (MDRD) Non-Af 61, BUN/Creatinine Ratio 11.6, Glucose 117 H, Calcium 7.7, Total Bilirubin 1.21, AST 111 H, ALT 333 H, Alkaline Phosphatase 147 H, Total Protein 5.4 L, Albumin 3.0 L, Globulin 2.3, Albumin/Globulin Ratio 1.3 Radiography Diagnostic Testing: Radiology Impression Endo Retro Cholangiopancreatogram 04/26/25 17:00 IMPRESSION: As above. Reading Location: [place] [address] Physical Exam Const oriented x3 and no apparent distress Resp normal respiratory effort GI soft to palpation and non-tender Assessment & Plan Assessment/Plan (1) Cholelithiasis: (2) Pancreatitis: PLAN: Plan Patient had gallstone pancreatitis. He seems to have no abdominal pain today. He had ERCP yesterday with stone removal and stent placement. Patient may advance diet as tolerated and be discharged today. Patient will follow-up with me to schedule short interval elective cholecystectomy. Rad Arnold MD Pager: [facility] [address] [facility] [address] [address], [address] [place] [address] Office: 04/27/2501 <Electronically signed by Rad Arnold MD> Cosigner Signature (if applicable): CC: ~ Signed [facility] Work Phone: 1(320) 422-613206-11-2025 Progress note [facility] Medical Records Department [address] [place] [address] Progress Note - Surgery 04/27/25719 MR#: [id number] Acct: [id number] Name: SUBHASHHOLLIE Rep #:[id number] : 1950 74 From: Rad reese MD PCP: Dr. Erwin Garcia MD Status:A DM IN Location: [place] [address] Subjective Subjective Patient reports he is comfortable. He was tolerating liquid diet last night before being made NPO. Objective Data Objective Data Vital Signs: Vital Signs Temp Pulse Resp BP Pulse Ox O2 Del Method O2 Flow Rate 98.1 F 81 16 126/65 H 94 Nasal Cannula 2 04/27/25 02:53 04/27/25 02:53 04/27/25 02:53 04/27/25 02:53 04/27/25 02:53 04/27/25 02:53 04/27/25 02:53 Oxygen Flow Rate (L/min) 2 Oxygen Delivery Method Nasal Cannula Weight: 228 lb 13.437 oz Body Mass Index (BMI) 32.8 Intake & Output: Intake and Output for Last 24 Hours 04/25/25 04/26/25 04/27/25 23:59 23:59 23:59 Intake Total 1000 / 1000 2670 / 2670 995 / 995 Balance 1000 / 1000 2670 / 2670 995 / 995 Lab / Micro Data 04/26/25 05:45 04/27/25 05:15 Labs: Laboratory Results - last 24 hr 04/27/25 05:15: Sodium 137, Potassium 3.9, Chloride 108, Carbon Dioxide 21.8, Anion Gap 8, BUN 15, Creatinine 1.26 H, Estim Creat Clear Calc 63.95, Est GFR (MDRD) Non-Af 61, BUN/Creatinine Ratio 11.6, Glucose 117 H, Calcium 7.7, Total Bilirubin 1.21, AST 111 H, ALT 333 H, Alkaline Phosphatase 147 H, Total Protein 5.4 L, Albumin 3.0 L, Globulin 2.3, Albumin/Globulin Ratio 1.3 Radiography Diagnostic Testing: Radiology Impression Endo Retro Cholangiopancreatogram 04/26/25 17:00 IMPRESSION: As above. Reading Location: [place] [address] Physical Exam Const oriented x3 and no apparent distress Resp normal respiratory effort GI soft to palpation and non-tender Assessment & Plan Assessment/Plan (1) Cholelithiasis: (2) Pancreatitis: PLAN: Plan Patient had gallstone pancreatitis. He seems to have no abdominal pain today. He had ERCP yesterdaywith stone removal and stent placement. Patient may advance diet as tolerated and be discharged today. Patient will follow-up with me to schedule short interval elective cholecystectomy. Rad Arnold MD Pager: [facility] [address] [place] [address], [address] [place] [address] Office: 04/27/25 0722 Cosigner Signature (if applicable): CC: ~ Signed [facility]06-10-2025 Procedure note [facility] Medical Records Department [address] [place] [address] ERCP Report MR#: [id number] Acct: [id number] Name: HOLLIE CULLEN Rep #:[id number] : 1950 74 From: Curtis Villatoro DO PCP: Dr. Erwin Garcia MD Status:A DM IN Patient Name: Hollie Cullen Procedure Date: 04/26/2025 4:09 PM Date of : 1950 Age: 74 Procedure: ERCP Indications: Abdominal pain of suspected biliary origin, Abdominal pain of suspected pancreatic origin, Acute pancreatitis Providers: Curtis Villatoro DO Medicines: General Anesthesia Patient Profile: This is a 74 year old male. This is a 74 year old male. Refer to note in patient chart for documentation of history and physical. Patient has symptoms of acute heartburn and acute jaundice. This patient has no history of previous ERCP. Complications: No immediate complications. Procedure: Pre-Anesthesia Assessment: - Prior to the procedure, a History and Physical was performed, and patient medications and allergies were reviewed. The patient is competent. The risks and benefits of the procedure and the sedation options and risks were discussed with the patient. All questions were answered and informed consent was obtained. Patient identification and proposed procedure were verified by the physician in the pre-procedure area. Mental Status Examination: alert and oriented. Airway Examination: normal oropharyngeal airway and neck mobility. Respiratory Examination: clear to auscultation. CV Examination: normal. Prophylactic Antibiotics: The patient does not require prophylactic antibiotics. Prior Anticoagulants: The patient has taken no anticoagulant or antiplatelet agents except for NSAID medication. ASA Grade Assessment: II - A patient with mild systemic disease. After reviewing the risks and benefits, the patient was deemed in satisfactory condition to undergo the procedure. The anesthesia plan was to use general anesthesia. Immediately prior to administration of medications, the patient was re-assessed for adequacy to receive sedatives. The heart rate, respiratory rate, oxygen saturations, blood pressure, adequacy of pulmonary ventilation, and response to care were monitored throughout the procedure. The physical status of the patient was re-assessed after the procedure. After obtaining informed consent, the scope was passed under direct vision. Throughout the procedure, the patient's blood pressure, pulse, and oxygen saturations were monitored continuously. The Duodenoscope was introduced through the mouth, and advanced to the duodenum and used to inject contrast into the bile duct. The ERCP was accomplished without difficulty. The patient tolerated the procedure well. Scope In: 5:01:55 PM Scope Out: 5:21:02 PM Total Procedure Duration Time 0 hours 19 minutes 7 seconds Findings: The cook box filler film was normal. The esophagus was successfully intubated under direct vision. The scope was advanced to a normal major papilla in the descending duodenum without detailed examination of the pharynx, larynx and associated structures, and upper GI tract. The upper GI tract was grossly normal. The bile duct was deeply cannulated. Contrast was injected. I personally interpreted the bile duct images. There was brisk flow of contrast through the ducts. Image quality was excellent. Contrast extended to the biliary pancreatic junction. Opacification of the entire opacified area and entire biliary tree was successful. The maximum diameter of the ducts was 10 mm. The entire opacified area and entire biliary tree contained two stones, the largest of which was 6 mm in diameter. The entire opacified area was moderately dilated, with a stone causing an obstruction. The largest diameter was 14 mm. A long 0.025 inch Jagwire was passed into the biliary tree. A 5 mm biliary sphincterotomy was made with a traction (standard) sphincterotome using ERBE electrocautery. There was no post-sphincterotomy bleeding. The biliary tree was swept with a 12 mm balloon starting at the bifurcation, left intrahepatic duct(s) and right intrahepatic duct(s). All stones were removed. One 10 Fr by 7 cm temporary stent was placed 5 cm into the common bile duct. Bile flowed through the stent. The stent was in good position. Impression: - The biliary system were moderately dilated, with a stone causing an obstruction. - Choledocholithiasis was found. Complete removal was accomplished by biliary sphincterotomy and balloon extraction. - A biliary sphincterotomy was performed. - The biliary tree was swept. - One temporary stent was placed into the common bile duct. Procedure Code(s): --- Professional --- 00129, Endoscopic retrograde cholangiopancreatography (ERCP); with placement of endoscopic stent into biliary or pancreatic duct, including pre- and post-dilation and guide wire passage, when performed, including sphincterotomy, when performed, each stent 62728, Endoscopic retrograde cholangiopancreatography (ERCP); with removal of calculi/debris from biliary/pancreatic duct(s) 15158, 26, Endoscopic catheterization of the biliary ductal system, radiological supervision and interpretation CPT copyright 2021 [employer]. All rights reserved. The codes documented in this report are preliminary and upon divinity professor review may be revised to meet current compliance requirements. Curtis Villatoro DO 04/26/2025 6:21:25 PM This report has been signed electronically. Number of Addenda: 0 Note Initiated On: 04/26/2025 4:09 PM 04/26/25 1821 Date _ Curtis Friend DO Cosigner Signature: Date (if indicated) CC: Dr. Erwin Garcia MD; Curtis Villatoro DO ~ Date Dictated: 04/26/25 1609 Date Transcribed: Metal Precision Machine Assembler: RF Signed [facility]06-10-2025 Procedure note [facility] Medical Records Department [address] [place] [address] Operative Report - CC Letter MR#: [id number] Acct: [id number] Name: HOLLIE CULLEN Rep #:[id number] : 1950 74 From: Curtis Villatoro DO PCP: Dr. Erwin Garcia MD Status:A DM IN 04/26/2025 Erwin Garcia [address] [place] [address] Re : ERCP procedure for Hollie Cullen Dear Dr. Garcia This procedure was performed on Saturday, April 26, 2025. My impressions and recommendations are as follows: Impressions : - The biliary system were moderately dilated, with a stone causing an obstruction. - Choledocholithiasis was found. Complete removal was accomplished by biliary sphincterotomy and balloon extraction. - A biliary sphincterotomy was performed. - The biliary tree was swept. - One temporary stent was placed into the common bile duct. Recommendations : My findings are described in the full procedure note, which is enclosed. If I can be of further assistance, please feel free to contact me at . Sincerely, Curtis Villatoro DO 04/26/2025 6:21:25 PM This report has been signed electronically. 04/26/25 182 Date _ Curtis Boo Signature: Date (if indicated) CC: Dr. Rad Arnold MD; Dr. Nacho Garza DO; Dr. Jose Mora MD; Dr.Victor Jose MD~ Date Dictated: 04/26/25 1609 Date Transcribed: Metal Precision Machine Assembler: RF Signed [facility]06-10-2025 Radiology Diagnostic study note [facility] Imaging Services [address] [place] [address] ERCP Biliary/Pancreas MR#: [id number] Acct: [id number] Name: HOLLIE CULLEN Rep #: [id number] : 1950 M 74 From: Yahir Ponce MD PCP: Dr. Erwin Garcia MD Status: A DM IN Study:ERCP Biliary/Pancreas Date of Exam: 04/26/25 Exam# [id number] Ordering Dr: Caridad Villatoro DO PROCEDURE: ERCP BILIARY/PANCREAS 04/26/2025 REASON FOR EXAM: ERCP TECHNIQUE: Fluoroscopic images for ERCP was performed. COMPARISON: 04/25/2025 ultrasound. FINDINGS: Contrast fills the biliary tree. See procedure report for full details. RAD/ERCP Biliary/Pancreas IMPRESSION: As above. Reading Location: [id number] CC: Dr. Erwin Garcia MD; Curtis Villatoro DO ~ Metal Precision Machine Assembler: Signed [facility]06-10-2025 Consult note Author José Michael [facility] Note Date/Time April 26, 2025 3:29 pm [facility] Medical Records Department [address] [place] [address] Pre-Anesthesia Evaluation 04/26/25 1528 MR#: [id number] Acct: [id number] Name: HOLLIE CULLEN Rep #: : 1950 74 From: José Michael MD PCP: Dr. Erwin Garcia MD Status:A DM IN Y Race: C Location: [address] ASA Classification* ASA Classification ASA Classification: 2 [...] Anesthesia Type: General Anesthesia Focused Assessment* Temperature: 98.8 F Pulse Rate: 77 Blood Pressure: 126/65 Respiratory Rate: 18 Pulse Ox: 96 Oxygen Flow Rate (L/min): 2 Airway Assessment Mouth opens: >3 cm Mallampati Score: II Labs Anesthesia Preop lab: CBC WBC 9.7 K/mm3 (4.4-11.0) 04/26/25 05:45 04/26/25 RBC 4.83 M/mm3 (4.6-6.2) 04/26/25 05:45 04/26/25 Hgb 13.8 g/dL (13.0-16.5) 04/26/25 05:45 04/26/25 Hct 41.8 % (40-54) 04/26/25 05:45 04/26/25 Plt Count 155 K/mm3 (150-450) 04/26/25 05:45 04/26/25 CHEMISTRY Potassium 4.6 mmol/L (3.3-5.1) 04/26/25 05:45 04/26/25 Sodium 140 mmol/L (133-145) 04/26/25 05:45 04/26/25 BUN 16 mg/dL (4-19) 04/26/25 05:45 04/26/25 Creatinine 1.52 mg/dL (0.70-1.20) H 04/26/25 05:45 Glucose 124 mg/dL (70-99) H 04/26/25 05:45 04/26/25 COAG Pre-Assessment Diagnosis/Proposed Procedure Planned Operative Procedure(s): ERCP Anesthesia History 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 When Was Last Pacemaker Check QUESTION #4 FULL TEXT: You/Your Family Experience fever (hyperthermia) with Anesthesia Last Oral Intake Last Oral intake: Last Oral Intake NPO since 00:00 04/26/25 14:35 Meds taken in AM with sips of No 04/26/25 14:35 water? Meds patient instructed to take am of surgery PONV PONV - shipping 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: PONV - shipping 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 Female HX of Motion Sickness HX of N/V After Surgery Non-Smoker Duration of Surgery greater than 60 minutes Number of Risk Factors PONV Score Height & Weight Height & Weight: Anesthesia: Height & Weight Height 5 ft 10 in 04/26/25 15:18 Weight: 103.8 kg 04/26/25 15:18 Body Mass Index (BMI) 32.8 04/26/25 14:35 Respiratory Assessment Respiratory Assessment - shipping 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: Respiratory Tract Infection Hx - shipping 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 Hx Respiratory Tract Infection No 04/26/25 00:27 STOP Sleep Apnea 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 Hx Hypertension No 04/26/25 00:21 Hx Sleep Apnea No 04/26/25 00:21 CPAP BIPAP Do you snore loudly (louder Yes 04/26/25 00:21 than talking or can be heard Do you often feel tired/ No 04/26/25 00:21 fatigued/ sleepy during daytime? Has anyone observed you stop No 04/26/25 00:21 breathing during sleep? STOP Results Negative 04/26/25 00:21 QUESTION #5 FULL TEXT : Do you snore loudly (louder than talking or can be heard through closed doors)? 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 Specify any problems Hx of Preganancy in last 3 N/A 04/26/25 00:21 Months Nurse Filling Out Transfusion EVIZZO 04/26/25 00:21 & Questions: Date: 04/26/25 04/26/25 00:21 Time: 00:39 04/26/25 00:21 Patient unable to answer at this time (ie. confused, unrespo /Reproduction History /Reproductive History - shipping 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: /Reproductive Hx- shipping 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 Hx Now Gestational Age (in weeks): EDC: Hx Hx Para Hx Section SAB No 02/11/25 13:33 Active Medications Active Medications: Current Medications Generic Name Dose Route Start Last Admin Trade Name Freq PRN Reason Stop Dose Admin Enoxaparin Sodium 40 mg 04/26/25 10:00 04/26/25 11:58 Enoxaparin 40 Mg/0.4 Ml Syringe SC Not Given DAILY MARVIN Sodium Chloride 1,000 mls @ 150 mls/hr 04/26/25 00:26 04/26/25 14:45 IV 150 mls/hr .[id number] MARVIN Administration Sodium Chloride 250 mls @ 15 mls/hr 04/26/25 00:26 IV .[id number] PRN Saline Flush Sodium Chloride 250 mls @ 15 mls/hr 04/26/25 00:26 IV .[id number] PRN Additional IVPB Infusion Montelukast Sodium 10 mg 04/26/25 22:00 Montelukast 10 Mg Tablet PO QHS MARVIN Morphine Sulfate 4 mg 04/26/25 00:26 04/26/25 12:59 Morphine 4 Mg/Ml Syringe IV 4 mg Q2H PRN PRN Administration Pain Score 6-10 Ondansetron HCl 4 mg 04/26/25 00:26 Ondansetron 4 Mg/2 Ml Vial IV Q8H PRN PRN NAUSEA/VOMITING Oxycodone HCl 5 mg 04/26/25 08:00 Oxycodone 5 Mg Tablet PO Q6H PRN pain Pantoprazole Sodium 40 mg 04/26/25 10:00 04/26/25 10:29 Pantoprazole Sodium 40 Mg Tablet PO 40 mg DAILY MARVIN Administration Sodium Chloride 10 - 40 ml 04/26/25 00:26 04/26/25 13:00 0.9% Saline Lock 10 Ml Syringe IV 10 ml UD PRN Administration SALINE FLUSH Tamsulosin HCl 0.4 mg 04/26/25 10:00 04/26/25 10:29 Tamsulosin Hcl 0.4 Mg Capsule PO 0.4 mg DAILY MARVIN Administration PFSH Medical History Wears glasses [...] #30 cap s 02/08/25 Unknown Rx release oxycodone 5 mg tablet 5 mg PO Q6H PRN pain 7 days #14 02/25/25 Unknown Rx tabs tamsulosin 0.4 mg capsule (Flomax) 0.4 mg PO DAILY #30 caps 02/27/25 Unknown Rx Allergy/AdvReac Type Severity Reaction Status Date / Time No Known Allergies Allergy Verified 04/25/25 21:09 Family History Mother Diabetes Brother Diabetes Colon cancer Surgical History Hx of laparoscopy Status post appendectomy Social History Smoking Status: Light Smoker (<10/day) quit status: not considering quitting Review of Systems (Anesthesia) ROS Narrative System reviewed and no additional complaints, except as documented. 04/26/25 1529 <Electronically signed by José Michael MD > Date _ José Michael MD Cosigner Signature: Date CC: ~ Signed [facility] Work Phone: 1(441) 169-923306-10-2025 Progress note Author Nacho Garza [facility] Note Date/Time April 26, 2025 2:14 pm [facility] Medical Records Department [address] [place] [address] Progress Note - Hospitalist 04/26/25 0735 MR#: [id number] Acct: [id number] Name: SUBHASHHOLLIE Rep #:[id number] : 1950 74 From: Nacho Garza DO PCP: Dr. Erwin Garcia MD Status:A DM IN Location: [place] [address]-1 Reason for Visit Reason for Visit: Diagnoses Calculus of gallbladder without cholecystitis without obstruction (04/26/25) Acute pancreatitis without necrosis or infection, unspecified (04/26/25) Unspecified jaundice (04/26/25) Elevation of levels of liver transaminase levels (04/26/25) Subjective Subjective Still with umbilical abdominal pain. Objective Data Objective Data Vital Signs: Vital Signs Temp Pulse Resp BP Pulse Ox O2 Del Method O2 Flow Rate 37.1 C 74 20 H 139/69 H 93 Nasal Cannula 2 04/26/25 06:15 04/26/25 06:15 04/26/25 06:15 04/26/25 06:15 04/26/25 06:15 04/26/25 06:15 04/26/25 06:15 Oxygen Flow Rate (L/min) 2 Oxygen Delivery Method Nasal Cannula Weight: 103.8 kg Body Mass Index (BMI) 32.8 Intake & Output: Intake and Output for Last 24 Hours 04/24/25 04/25/25 04/26/25 23:59 23:59 23:59 Intake Total 1000 / 1000 800 / 800 Balance 1000 / 1000 800 / 800 Lab / Micro Data 04/26/25 05:45 04/26/25 05:45 Labs: Laboratory Results - last 24 hr 04/25/25 21:16: WBC 10.9, RBC 5.66, Hgb 15.8, Hct 47.8, MCV 84.5, MCH 27.9, MCHC33.1, RDW Std Deviation 42.5, RDW Coeff of Mildred 13.9, Plt Count 197, MPV 11.1, Immature Gran % (Auto) 0.400, Neut % (Auto) 76.3 H, Lymph % (Auto) 10.5 L, Webster % (Auto) 11.7 H, Eos % (Auto) 0.7, Baso % (Auto) 0.4, Absolute Neuts (auto) 8.3 H, Absolute Lymphs (auto) 1.15, Nucleated RBC % 0, Sodium 140, Potassium 3.9, Chloride 104, Carbon Dioxide 22.9, Anion Gap 13, BUN 13, Creatinine 1.49 H, Estim Creat Clear Calc 53.81, Est GFR (MDRD) Non-Af 50 L, BUN/Creatinine Ratio 8.7 L, Glucose 162 H, Calcium 9.7, Total Bilirubin 5.33 H, AST 486 H, ALT 835 H,Alkaline Phosphatase 228 H, Total Protein 7.4, Albumin 4.3, Globulin 3.1, Albumin/Globulin Ratio 1.4, Lipase > 3000 H 04/26/25 05:45: WBC 9.7, RBC 4.83, Hgb 13.8, Hct 41.8, MCV 86.5, MCH 28.6, MCHC 33.0, RDW Std Deviation 45.0 H, RDW Coeff of Mildred 14.0, Plt Count 155, MPV 11.1, Immature Gran % (Auto) 0.300, Neut % (Auto) 86.3 H, Lymph % (Auto) 7.5 L, Webster %(Auto) 5.2, Eos % (Auto) 0.5, Baso % (Auto) 0.2, Absolute Neuts (auto) 8.3 H, Absolute Lymphs (auto) 0.72 L, Nucleated RBC % 0, Sodium 140, Potassium 4.6, Chloride 107, Carbon Dioxide 22.5, Anion Gap 10, BUN 16, Creatinine 1.52 H, Estim Creat Clear Calc 53.01, Est GFR (MDRD) Non-Af 48 L, BUN/Creatinine Ratio 10.4, Glucose 124 H, Calcium 8.4, Total Bilirubin 3.79 H, AST 325 H, ALT 605 H, Alkaline Phosphatase 189 H, Total Protein 6.0, Albumin 3.6, Globulin 2.4, Albumin/Globulin Ratio 1.5, Lipase 2883 H Radiography Diagnostic Testing: Radiology Impression Gallbladder Ultrasound 04/25/25 22:10 IMPRESSION: Cholelithiasis without evidence of acute cholecystitis. Reading Location: [facility] Physical Exam Const alert and no apparent distress HEENT head/scalp atraumatic and moist oral mucous membranes Resp normal respiratory effort and no retractions GI soft to palpation, non-tender and non-distended Extremity normal to inspection and full ROM Neuro moves all extremities and no focal motor deficits Sensorium / Orientation: awake and alert Psych affect normal Assessment & Plan Assessment/Plan (1) Pancreatitis: PLAN: concerning for gallstone induced pancreatitis. GI on consult for ERCP General surgery on consult, no acute surgical plans. Will be determined post- ERCP continue fluids and pain control. PLAN: Plan BPH: continue tamsulosin GERD: continue PPI. VTE prophylaxis: LMWH. Charges/Coding Visit Charges Inpatient E&M: 45557 Subs Hosp L2 04/26/25 1414 <Electronically signed by Nacho Garza DO> Cosigner Signature (if applicable): CC: ~ Signed [facility] Work Phone: [phone]) 905-189606-10-2025 Progress note Author Curtis Villatoro [facility] Note Date/Time April 26, 2025 1:53 pm [facility] Medical Records Department [address] [place] [address] Progress Note 04/26/25 1350 MR#: [id number] Acct: [id number] Name: SUBHASHHOLLIE Rep #:[id number] : 1950 74 From: Curtis Villatoro DO PCP: Dr. Erwin Garcia MD Status:A DM IN [facility] Note 74-year-old male with past medical history of chronic kidney disease status postright nephrectomy, hyperlipidemia, alcohol use who presented to the emergency department chief complaint of concern that his gallbladder is being obstructed by stone. He states that on Friday he had significant pain he went to a freestanding ER in [place] and had a CT scan that showed a large stone at that point in time. He states that as the weekend progressed and into today's pain significantly worsened prompting him to come here for further evaluation management. Physical Exam Const alert, oriented x3, no apparent distress and healthy appearing General Appearance: cooperative GI normal to inspection, nondistended, normoactive bowel sounds, soft to palpation,non-tender and non-distended Percussion: normal to percussion Rectal Exam: deferred Assessment & Plan Assessment/Plan (1) Pancreatitis: PLAN: 74 yo with abdominal pain and was discovered to have jaundice, cholestatichepatitis and gallstone induced pancreatitis. He will undergo ERCP with evaluated hepatobiliary system. He was explained alternatives, risk and benefits include understanding bleeding, infection, sepsis, perforation, need for moresurgery . He will have an ASA of 3. PLAN: Plan BPH: continue tamsulosin GERD: continue PPI. VTE prophylaxis: LMWH. Visit Charges Inpatient E&M: 49099 Subs Hosp L3 04/26/25 1353 <Electronically signed by Curtis Villatoro DO> Curtis Villatoro DO Cosigner Signature (if applicable): CC: ~ Signed [facility] Work Phone: [phone]) 177-601806-10-2025 Consult note [facility] Medical Records Department [address] [place] [address] Pre-Anesthesia Evaluation 04/26/25 1528 MR#: [id number] Acct: [id number] Name: HOLLIE CULLEN Rep #:[id number] : 1950 74 From: José Michael MD PCP: Dr. Erwin Garcia MD Status:A DM IN Y Race: C Location: [place] [address] ASA Classification* ASA Classification ASA Classification: 2 [...] Anesthesia Type: General Anesthesia Focused Assessment* Temperature: 98.8 F Pulse Rate: 77 Blood Pressure: 126/65 Respiratory Rate: 18 Pulse Ox: 96 Oxygen Flow Rate (L/min): 2 Airway Assessment Mouth opens: >3 cm Mallampati Score: II Labs Anesthesia Preop lab: CBC WBC 9.7 K/mm3 (4.4-11.0) 04/26/25 05:45 04/26/25 RBC 4.83 M/mm3 (4.6-6.2) 04/26/25 05:45 04/26/25 Hgb 13.8 g/dL (13.0-16.5) 04/26/25 05:45 04/26/25 Hct 41.8 % (40-54) 04/26/25 05:45 04/26/25 Plt Count 155 K/mm3 (150-450) 04/26/25 05:45 04/26/25 CHEMISTRY Potassium 4.6 mmol/L (3.3-5.1) 04/26/25 05:45 04/26/25 Sodium 140 mmol/L (133-145) 04/26/25 05:45 04/26/25 BUN 16 mg/dL (4-19) 04/26/25 05:45 04/26/25 Creatinine 1.52 mg/dL (0.70-1.20) H 04/26/25 05:45 Glucose 124 mg/dL (70-99) H 04/26/25 05:45 04/26/25 COAG Pre-Assessment Diagnosis/Proposed Procedure Planned Operative Procedure(s): ERCP Anesthesia History 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 When Was Last Pacemaker Check QUESTION #4 FULL TEXT: You/Your Family Experience fever (hyperthermia) with Anesthesia Last Oral Intake Last Oral intake: Last Oral Intake NPO since 00:00 04/26/25 14:35 Meds taken in AM with sips of No 04/26/25 14:35 water? Meds patient instructed to take am of surgery PONV PONV - shipping 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: PONV - shipping 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 Female HX of Motion Sickness HX of N/V After Surgery Non-Smoker Duration of Surgery greater than 60 minutes Number of Risk Factors PONV Score Height & Weight Height & Weight: Anesthesia: Height & Weight Height 5 ft 10 in 04/26/25 15:18 Weight: 103.8 kg 04/26/25 15:18 Body Mass Index (BMI) 32.8 04/26/25 14:35 Respiratory Assessment Respiratory Assessment - shipping 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: Respiratory Tract Infection Hx - shipping 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 Hx Respiratory Tract Infection No 04/26/25 00:27 STOP Sleep Apnea 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 Hx Hypertension No 04/26/25 00:21 Hx Sleep Apnea No 04/26/25 00:21 CPAP BIPAP Do you snore loudly (louder Yes 04/26/25 00:21 than talking or can be heard Do you often feel tired/ No 04/26/25 00:21 fatigued/ sleepy during daytime? Has anyone observed you stop No 04/26/25 00:21 breathing during sleep? STOP Results Negative 04/26/25 00:21 QUESTION #5 FULL TEXT : Do you snore loudly (louder than talking or can be heard through closeddoors)? 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 Specify any problems Hx of Preganancy in last 3 N/A 04/26/25 00:21 Months Nurse Filling Out Transfusion EVIZZO 04/26/25 00:21 & Questions: Date: 04/26/25 04/26/25 00:21 Time: 00:39 04/26/25 00:21 Patient unable to answer at this time (ie. confused, unrespo /Reproduction History /Reproductive History - shipping 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: /Reproductive Hx- shipping 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 Hx Now Gestational Age (in weeks): EDC: Hx Hx Para Hx Section SAB No 02/11/25 13:33 Active Medications Active Medications: Current Medications Generic Name Dose Route Start Last Admin Trade Name Freq PRN Reason Stop Dose Admin Enoxaparin Sodium 40 mg 04/26/25 10:00 04/26/25 11:58 Enoxaparin 40 Mg/0.4 Ml Syringe SC Not Given DAILY MARVIN Sodium Chloride 1,000 mls @ 150 mls/hr 04/26/25 00:26 04/26/25 14:45 IV 150 mls/hr .Q6H40M MARVIN Administration Sodium Chloride 250 mls @ 15 mls/hr 04/26/25 00:26 IV .[id number] PRN Saline Flush Sodium Chloride 250 mls @ 15 mls/hr 04/26/25 00:26 IV .[id number] PRN Additional IVPB Infusion Montelukast Sodium 10 mg 04/26/25 22:00 Montelukast 10 Mg Tablet PO QHS MRAVIN Morphine Sulfate 4 mg 04/26/25 00:26 04/26/25 12:59 Morphine 4 Mg/Ml Syringe IV 4 mg Q2H PRN PRN Administration Pain Score 6-10 Ondansetron HCl 4 mg 04/26/25 00:26 Ondansetron 4 Mg/2 Ml Vial IV Q8H PRN PRN NAUSEA/VOMITING Oxycodone HCl 5 mg 04/26/25 08:00 Oxycodone 5 Mg Tablet PO Q6H PRN pain Pantoprazole Sodium 40 mg 04/26/25 10:00 04/26/25 10:29 Pantoprazole Sodium 40 Mg Tablet PO 40 mg DAILY MARVIN Administration Sodium Chloride 10 - 40 ml 04/26/25 00:26 04/26/25 13:00 0.9% Saline Lock 10 Ml Syringe IV 10 ml UD PRN Administration SALINE FLUSH Tamsulosin HCl 0.4 mg 04/26/25 10:00 04/26/25 10:29 Tamsulosin Hcl 0.4 Mg Capsule PO 0.4 mg DAILY MARVIN [facility] History Wears glasses Wears dentures Wears [...] #30 cap s 02/08/25 Unknown Rx release oxycodone 5 mg tablet 5 mg PO Q6H PRN pain 7 days #14 02/25/25 Unknown Rx tabs tamsulosin 0.4 mg capsule (Flomax) 0.4 mg PO DAILY #30 caps 02/27/25 Unknown Rx Allergy/AdvReac Type Severity Reaction Status Date / Time No Known Allergies Allergy Verified 04/25/25 21:09 Family History Mother Diabetes Brother Diabetes Colon cancer Surgical History Hx of laparoscopy Status post appendectomy Social History Smoking Status: Light Smoker (<10/day) quit status: not considering quitting Review of Systems (Anesthesia) ROS Narrative System reviewed and no additional complaints, except as documented. 04/26/25 1529 > Date _ José Michael MD Cosigner Signature: Date CC: ~ Signed [facility]06-10[facility]2025 Progress note [facility] Medical Records Department [address] [place] [address] Progress Note - Hospitalist 04/26/25 0735 MR#: [id number] Acct: [id number] Name: SUBHASHHOLLIE Rep #:[id number] : 1950 74 From: Nacho Garza DO PCP: Dr. Erwin Garcia MD Status:A DM IN Location: [place] [id number] Reason for Visit Reason for Visit: Diagnoses Calculus of gallbladder without cholecystitis without obstruction (04/26/25) Acute pancreatitis without necrosis or infection, unspecified (04/26/25) Unspecified jaundice (04/26/25) Elevation of levels of liver transaminase levels (04/26/25) Subjective Subjective Still with umbilical abdominal pain. Objective Data Objective Data Vital Signs: Vital Signs Temp Pulse Resp BP Pulse Ox O2 Del Method O2 Flow Rate 37.1 C 74 20 H 139/69 H 93 Nasal Cannula 2 04/26/25 06:15 04/26/25 06:15 04/26/25 06:15 04/26/25 06:15 04/26/25 06:15 04/26/25 06:15 04/26/25 06:15 Oxygen Flow Rate (L/min) 2 Oxygen Delivery Method Nasal Cannula Weight: 103.8 kg Body Mass Index (BMI) 32.8 Intake & Output: Intake and Output for Last 24 Hours 04/24/25 04/25/25 04/26/25 23:59 23:59 23:59 Intake Total 1000 / 1000 800 / 800 Balance 1000 / 1000 800 / 800 Lab / Micro Data 04/26/25 05:45 04/26/25 05:45 Labs: Laboratory Results - last 24 hr 04/25/25 21:16: WBC 10.9, RBC 5.66, Hgb 15.8, Hct 47.8, MCV 84.5, MCH 27.9, MCHC33.1, RDW Std Deviation 42.5, RDW Coeff of Mildred 13.9, Plt Count 197, MPV 11.1, Immature Gran % (Auto) 0.400, Neut % (Auto) 76.3 H, Lymph % (Auto) 10.5 L, Webster % (Auto) 11.7 H, Eos % (Auto) 0.7, Baso % (Auto) 0.4, Absolute Neuts (auto) 8.3 H, Absolute Lymphs (auto) 1.15, Nucleated RBC % 0, Sodium 140, Potassium 3.9, Chloride 104, Carbon Dioxide 22.9, Anion Gap 13, BUN 13, Creatinine 1.49 H, Estim Creat Clear Calc 53.81, Est GFR (MDRD) Non-Af 50 L, BUN/Creatinine Ratio 8.7 L, Glucose 162 H, Calcium 9.7, Total Bilirubin 5.33 H, AST 486 H, ALT 835 H,Alkaline Phosphatase 228 H, Total Protein 7.4, Albumin 4.3, Globulin3.1, Albumin/Globulin Ratio 1.4, Lipase > 3000 H 04/26/25 05:45: WBC 9.7, RBC 4.83, Hgb 13.8, Hct 41.8, MCV 86.5, MCH 28.6, MCHC 33.0, RDW Std Deviation 45.0 H, RDW Coeff of Mildred 14.0, Plt Count 155, MPV 11.1, Immature Gran % (Auto) 0.300, Neut % (Auto) 86.3 H, Lymph % (Auto) 7.5 L, Webster %(Auto) 5.2, Eos % (Auto) 0.5, Baso % (Auto) 0.2, Absolute Neuts (auto) 8.3 H, Absolute Lymphs (auto) 0.72 L, Nucleated RBC % 0, Sodium 140, Potassium 4.6, Chloride 107, Carbon Dioxide 22.5, Anion Gap 10, BUN 16, Creatinine 1.52 H, Estim Creat Clear Calc 53.01, Est GFR (MDRD) Non-Af 48 L, BUN/Creatinine Ratio 10.4, Glucose 124 H, Calcium 8.4, Total Bilirubin3.79 H, AST 325 H, ALT 605 H, Alkaline Phosphatase 189 H, Total Protein 6.0, Albumin 3.6, Globulin 2.4, Albumin/Globulin Ratio 1.5, Lipase 2883 H Radiography Diagnostic Testing: Radiology Impression Gallbladder Ultrasound 04/25/25 22:10 IMPRESSION: Cholelithiasis without evidence of acute cholecystitis. Reading Location: [facility] Physical Exam Const alert and no apparent distress HEENT head/scalp atraumatic and moist oral mucous membranes Resp normal respiratory effort and no retractions GI soft to palpation, non-tender and non-distended Extremity normal to inspection and full ROM Neuro moves all extremities and no focal motor deficits Sensorium / Orientation: awake and alert Psych affect normal Assessment & Plan Assessment/Plan (1) Pancreatitis: PLAN: concerning for gallstone induced pancreatitis. GI on consult for ERCP General surgery on consult, no acute surgical plans. Will be determined post-ERCP continue fluids and pain control. PLAN: Plan BPH: continue tamsulosin GERD: continue PPI. VTE prophylaxis: LMWH. Charges/Coding Visit Charges Inpatient E&M: 66958 [facility] L2 04/26/25 1414 Cosigner Signature (if applicable): CC: ~ Signed [facility]06-10-2025 Progress note [facility] Medical Records Department [address] [place] [address] Progress Note 04/26/25 1350 MR#: [id number] Acct: [id number] Name: HOLLIE CULLEN Rep #:[id number] : 1950 74 From: [facility] Friend DO PCP: Dr. Erwin Garcia MD Status:A DM IN Location: [facility] [id number] Progress Note 74-year-old male with past medical history of chronic kidney disease status postright nephrectomy, hyperlipidemia, alcohol use who presented to the emergency department chief complaint of concern that his gallbladder is being obstructed by stone. He states that on Friday he had significant pain he went to a freestanding ER in [place] and had a CT scan that showed a large stone at that point in time. He states that as the weekend progressed and into today's pain significantly worsened prompting him to come here for further evaluation management. Physical Exam Const alert, oriented x3, no apparent distress and healthy appearing General Appearance: cooperative GI normal to inspection, nondistended, normoactive bowel sounds, soft to palpation,non-tender and non-distended Percussion: normal to percussion Rectal Exam: deferred Assessment & Plan Assessment/Plan (1) Pancreatitis: PLAN: 74 yo with abdominal pain and was discovered to have jaundice, cholestatichepatitis and gallstone induced pancreatitis. He will undergo ERCP with evaluated hepatobiliary system. He was explained alternatives, risk and benefits include understanding bleeding, infection, sepsis, perforation, need for moresurgery . He will have an ASA of 3. PLAN: Plan BPH: continue tamsulosin GERD: continue PPI. VTE prophylaxis: LMWH. Visit Charges Inpatient E&M: 06789 [facility]osp 04/26/25 1353 [facility] Friend DO Cosign Signature (if applicable): CC: ~ Signed [facility]06-10-2025 Consult note Author Rad Arnold [facility] Note Date/Time April 26, 2025 7:10 am [facility] Medical Records Department [address] [place] [address] Consultation - Surgical 04/26/25 0707 MR#: [id number] Acct: [id number] Name: HOLLIE CULLEN Rep #:[id number] : 1950 74 From: Rad reese MD PCP: Dr. Erwin Garcia MD Status:A DM IN [facility] Assessment & Plan Assessment/Plan (1) Jaundice: (2) Cholelithiasis: PLAN: Plan The patient has gallstone pancreatitis. He had elevation of his lipase as well as LFTs. He has no signs of acute cholecystitis on ultrasound. He does have cholelithiasis. Recommend GI consult for ERCP. I will be involved after ERCP to discuss and plan laparoscopic cholecystectomy. Rad Arnold MD Pager: [facility] [address] [facility] [place], [address] [place] [address] Office: HPI Consult Data Date of Consult: 04/26/25 HPI Narrative HPI Narrative: HOLLIE CULLEN, is a 74 M who presents with abdominal pain. Patient reportsabdominal pain lower in his abdomen but he says whenever a hiccups or burps thatradiates upward. He also reports that he was having some nausea and vomiting before admission. The patient was seen back in January for acute cholecystitis but surgery was deferred. [facility] Medical History Wears glasses Wears dentures Wears [...] #30 cap s 02/08/25 Unknown Rx release oxycodone 5 mg tablet 5 mg PO Q6H PRN pain 7 days #14 02/25/25 Unknown Rx tabs tamsulosin 0.4 mg capsule (Flomax) 0.4 mg PO DAILY #30 caps 02/27/25 Unknown Rx Allergy/AdvReac Type Severity Reaction Status Date / Time No Known Allergies Allergy Verified 04/25/25 21:09 Family History Mother Diabetes Brother Diabetes Colon cancer Surgical History Hx of laparoscopy Status post appendectomy Social History Smoking Status: Light Smoker (<10/day) quit status: not considering quitting ROS Constitutional Constitutional: Denies anorexia, chills, fatigue or fever(s) Eyes Eyes: Denies blurry vision ENT HEENT: Denies abnormal hearing Respiratory/Chest Respiratory/Chest: Denies cough or dyspnea Gastrointestinal Gastrointestinal: Reports abdominal pain, nausea and vomiting; Denies constipation Genitourinary Genitourinary: Denies change in urinary stream or difficulty urinating Musculoskeletal Musculoskeletal: Denies abnormal gait Integumentary Integumentary: Denies jaundice or new lesions Neurologic Neurologic: Denies abnormal gait Physical Exam Const alert and oriented x3 HEENT normocephalic Eyes PERRL Resp normal respiratory effort Cardio Rate: regular rate Rhythm: regular rhythm GI soft to palpation Palpation: tender Lab / Micro Data 04/26/25 05:45 04/26/25 05:45 Labs: Laboratory Results - last 24 hr 04/25/25 21:16: WBC 10.9, RBC 5.66, Hgb 15.8, Hct 47.8, MCV 84.5, MCH 27.9, MCHC33.1, RDW Std Deviation 42.5, RDW Coeff of Mildred 13.9, Plt Count 197, MPV 11.1, Immature Gran % (Auto) 0.400, Neut % (Auto) 76.3 H, Lymph % (Auto) 10.5 L, Webster % (Auto) 11.7 H, Eos % (Auto) 0.7, Baso % (Auto) 0.4, Absolute Neuts (auto) 8.3 H, Absolute Lymphs (auto) 1.15, Nucleated RBC % 0, Sodium 140, Potassium 3.9, Chloride 104, Carbon Dioxide 22.9, Anion Gap 13, BUN 13, Creatinine 1.49 H, Estim Creat Clear Calc 53.81, Est GFR (MDRD) Non-Af 50 L, BUN/Creatinine Ratio 8.7 L, Glucose 162 H, Calcium 9.7, Total Bilirubin 5.33 H, AST 486 H, ALT 835 H,Alkaline Phosphatase 228 H, Total Protein 7.4, Albumin 4.3, Globulin 3.1, Albumin/Globulin Ratio 1.4, Lipase > 3000 H 04/26/25 05:45: WBC 9.7, RBC 4.83, Hgb 13.8, Hct 41.8, MCV 86.5, MCH 28.6, MCHC 33.0, RDW Std Deviation 45.0 H, RDW Coeff of Mildred 14.0, Plt Count 155, MPV 11.1, Immature Gran % (Auto) 0.300, Neut % (Auto) 86.3 H, Lymph % (Auto) 7.5 L, Webster %(Auto) 5.2, Eos % (Auto) 0.5, Baso % (Auto) 0.2, Absolute Neuts (auto) 8.3 H, Absolute Lymphs (auto) 0.72 L, Nucleated RBC % 0, Sodium 140, Potassium 4.6, Chloride 107, Carbon Dioxide 22.5, Anion Gap 10, BUN 16, Creatinine 1.52 H, Estim Creat Clear Calc 53.01, Est GFR (MDRD) Non-Af 48 L, BUN/Creatinine Ratio 10.4, Glucose 124 H, Calcium 8.4, Total Bilirubin 3.79 H, AST 325 H, ALT 605 H, Alkaline Phosphatase 189 H, Total Protein 6.0, Albumin 3.6, Globulin 2.4, Albumin/Globulin Ratio 1.5, Lipase 2883 H Imaging Radiology Impression Gallbladder Ultrasound 04/25/25 22:10 IMPRESSION: Cholelithiasis without evidence of acute cholecystitis. Reading Location: [facility] 04/26/25 0710 <Electronically signed by Rad Arnold MD> Cosigner Signature (if applicable): CC: Dr. Erwin Garcia MD~ Signed [facility] Work Phone: [phone] 145-948206-10-2025 Consult note [facility] Medical Records Department [address] [place] [address] Consultation - Surgical 04/26/25 0707 MR#: [id number] Acct: [id number] Name: HOLLIE CULLEN Rep #:[id number] : 1950 74 From: Rad reese MD PCP: Dr. Erwin Garcia MD Status:A DM IN Location: [facility] [id number] Assessment & Plan Assessment/Plan (1) Jaundice: (2) Cholelithiasis: PLAN: Plan The patient has gallstone pancreatitis. He had elevation of his lipase as well as LFTs. He has no signs of acute cholecystitis on ultrasound. He does have cholelithiasis. Recommend GI consult for ERCP. I will be involved after ERCP to discuss and plan laparoscopic cholecystectomy. Rad Arnold MD Pager: [facility] [address] [place] [address], [address] [place] [address] Office: HPI Consult Data Date of Consult: 04/26/25 HPI Narrative HPI Narrative: HOLLIE CULLEN, is a 74 M who presents with abdominal pain. Patient reportsabdominal pain lowerin his abdomen but he says whenever a hiccups or burps thatradiates upward. He also reports that hewas having some nausea and vomiting before admission. The patient was seen back in January for acute c holecystitis but surgery was deferred. [facility] Medical History Wears glasses Wears dentures Wears [...] #30 cap s 02/08/25 Unknown Rx release oxycodone 5 mg tablet 5 mg PO Q6H PRN pain 7 days #14 02/25/25 Unknown Rx tabs tamsulosin 0.4 mg capsule (Flomax) 0.4 mg PO DAILY #30 caps 02/27/25 Unknown Rx Allergy/AdvReac Type Severity Reaction Status Date / Time No Known Allergies Allergy Verified 04/25/25 21:09 Family History Mother Diabetes Brother Diabetes Colon cancer Surgical History Hx of laparoscopy Status post appendectomy Social History Smoking Status: Light Smoker (<10/day) quit status: not considering quitting ROS Constitutional Constitutional: Denies anorexia, chills, fatigue or fever(s) Eyes Eyes: Denies blurry vision ENT HEENT: Denies abnormal hearing Respiratory/Chest Respiratory/Chest: Denies cough or dyspnea Gastrointestinal Gastrointestinal: Reports abdominal pain, nausea and vomiting; Denies constipation Genitourinary Genitourinary: Denies change in urinary stream or difficulty urinating Musculoskeletal Musculoskeletal: Denies abnormal gait Integumentary Integumentary: Denies jaundice or new lesions Neurologic Neurologic: Denies abnormal gait Physical Exam Const alert and oriented x3 HEENT normocephalic Eyes PERRL Resp normal respiratory effort Cardio Rate: regular rate Rhythm: regular rhythm GI soft to palpation Palpation: tender Lab / Micro Data 04/26/25 05:45 04/26/25 05:45 Labs: Laboratory Results - last 24 hr 04/25/25 21:16: WBC 10.9, RBC 5.66, Hgb 15.8, Hct 47.8, MCV 84.5, MCH 27.9, MCHC33.1, RDW Std Deviation 42.5, RDW Coeff of Mildred 13.9, Plt Count 197, MPV 11.1, Immature Gran % (Auto) 0.400, Neut % (Auto) 76.3 H, Lymph % (Auto) 10.5 L, Webster % (Auto) 11.7 H, Eos % (Auto) 0.7, Baso % (Auto) 0.4, Absolute Neuts (auto) 8.3 H, Absolute Lymphs (auto) 1.15, Nucleated RBC % 0, Sodium 140, Potassium 3.9, Chloride 104, Carbon Dioxide 22.9, Anion Gap 13, BUN 13, Creatinine 1.49 H, Estim Creat Clear Calc 53.81, Est GFR (MDRD) Non-Af 50 L, BUN/Creatinine Ratio 8.7 L, Glucose 162 H, Calcium 9.7, Total Bilirubin 5.33 H, AST 486 H, ALT 835 H,Alkaline Phosphatase 228 H, Total Protein 7.4, Albumin 4.3, Globulin3.1, Albumin/Globulin Ratio 1.4, Lipase > 3000 H 04/26/25 05:45: WBC 9.7, RBC 4.83, Hgb 13.8, Hct 41.8, MCV 86.5, MCH 28.6, MCHC 33.0, RDW Std Deviation 45.0 H, RDW Coeff of Mildred 14.0, Plt Count 155, MPV 11.1, Immature Gran % (Auto) 0.300, Neut % (Auto) 86.3 H, Lymph % (Auto) 7.5 L, Webster %(Auto) 5.2, Eos % (Auto) 0.5, Baso % (Auto) 0.2, Absolute Neuts (auto) 8.3 H, Absolute Lymphs (auto) 0.72 L, Nucleated RBC % 0, Sodium 140, Potassium 4.6, Chloride 107, Carbon Dioxide 22.5, Anion Gap 10, BUN 16, Creatinine 1.52 H, Estim Creat Clear Calc 53.01, Est GFR (MDRD) Non-Af 48 L, BUN/Creatinine Ratio 10.4, Glucose 124 H, Calcium 8.4, Total Bilirubin3.79 H, AST 325 H, ALT 605 H, Alkaline Phosphatase 189 H, Total Protein 6.0, Albumin 3.6, Globulin 2.4, Albumin/Globulin Ratio 1.5, Lipase 2883 H Imaging Radiology Impression Gallbladder Ultrasound 04/25/25 22:10 IMPRESSION: Cholelithiasis without evidence of acute cholecystitis. Reading Location: [facility] 04/26/25 0710 Cosigner Signature (if applicable): CC: Dr. Erwin Garcia MD~ Signed [facility]06-10-2025 History and physical note Author Jose Mora [facility] Note Date/Time April 26, 2025 12:0 6am [facility] Medical Records Department [address] [place] [place] [address] History & Physical Exam 04/25/25 3675 MR#: [id number] Acct: [id number] Name: SUBHASHHOLLIE Rep #:[id number] : 1950 74 From: Jose Mora MD PCP: Dr. Erwin Garcia MD Status:R EG ER Location: ED HPI - General General Date of Service: 04/25/25 Chief Complaint: Acute abdominal pain HPI Narrative HOLLIE CULLEN, is a 74 M who presents to the emergency room with chief complaint of abdominal pain. Patient had similar episode of abdominal pain was seen at a freestanding urgent care and had a CT scan done which showed cholelithiasis and he was discharged home. The pain is subsequently become moresevere and he came to the emergency room for evaluation. He was previously scheduled to see his surgeon on Friday to plan for cholecystectomy but was unable to wait for that appointment due to pain at this time. Ultrasound done today shows gallstone, lipase was greater than 3000, total bilirubin was elevated 5.3, AST 486, ALT 835, alk phos 228 CBC was within normal limits. 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 Patient also has a history ofalcohol use and drinks 2-3 beers a day but denies having had withdrawal symptomsin the past and has gone periods of time without drinking. Patient will be admitted to general medical floor, made n.p.o. with IV fluids and consult to for ERCP and Dr. Arnold for surgical consult. [facility] Medical History Wears glasses Wears dentures Wears [...] #30 cap s 02/08/25 Unknown Rx release oxycodone 5 mg tablet 5 mg PO Q6H PRN pain 7 days #14 02/25/25 Unknown Rx tabs tamsulosin 0.4 mg capsule (Flomax) 0.4 mg PO DAILY #30 caps 02/27/25 Unknown Rx Allergy/AdvReac Type Severity Reaction Status Date / Time No Known Allergies Allergy Verified 04/25/25 21:09 Family History Mother Diabetes Brother Diabetes Colon cancer Surgical History Hx of laparoscopy Status post appendectomy Social History Smoking Status: Light Smoker (<10/day) quit status: not considering quitting ROS Constitutional Constitutional: Denies chills or fever(s) Eyes Eyes: Denies blurry vision ENT HEENT: Denies abnormal hearing Cardiovascular Cardiovascular: Denies chest pain Respiratory/Chest Respiratory/Chest: Denies shortness of breath at rest Gastrointestinal Gastrointestinal: Reports abdominal pain and nausea Genitourinary Genitourinary: Denies dysuria Musculoskeletal Musculoskeletal: Denies back pain Integumentary Integumentary: Reports jaundice Neurologic Neurologic: Denies abnormal gait Psychiatric Psychiatric: Denies anxiety Vital Signs Vital Signs Vital Signs: 04/25/25 21:06 04/25/25 23:05 04/25/25 23:48 Temperature 97.5 F L 98.6 F Temperature Source Oral Pulse Rate 73 65 65 Respiratory Rate 16 18 Blood Pressure 119/67 119/62 Blood Pressure Mean 84 81 Pulse Ox 91 92 Oxygen Delivery Method Room Air Weight Weight: 226 lb 8 oz Body Mass Index (BMI) 32.5 Physical Exam Const oriented x3 General Appearance: cooperative and well developed HEENT normocephalic and head/scalp atraumatic Eyes PERRL Neck no lymphadenopathy Lymph Lymphatic: no lymphadenopathy noted Resp normal respiratory effort, normal air movement and clear to auscultation bilaterally Cardio regular rate, regular rhythm, S1 normal heart sound and S2 normal heart sound GI Inspection: abdominal distention Palpation: tender epigastric and RUQ Extremity normal capillary refill Skin General Skin Exam: no breakdown Neuro no focal motor deficits and no sensory deficits noted Psych thought process normal, cooperative and affect normal Results Lab / Micro Data 04/25/25 21:16 04/25/25 21:16 Labs: Laboratory Results - last 24 hr 04/25/25 21:16: WBC 10.9, RBC 5.66, Hgb 15.8, Hct 47.8, MCV 84.5, MCH 27.9, MCHC33.1, RDW Std Deviation 42.5, RDW Coeff of Mildred 13.9, Plt Count 197, MPV 11.1, Immature Gran % (Auto) 0.400, Neut % (Auto) 76.3 H, Lymph % (Auto) 10.5 L, Webster % (Auto) 11.7 H, Eos % (Auto) 0.7, Baso % (Auto) 0.4, Absolute Neuts (auto) 8.3 H, Absolute Lymphs (auto) 1.15, Nucleated RBC % 0, Sodium 140, Potassium 3.9, Chloride 104, Carbon Dioxide 22.9, Anion Gap 13, BUN 13, Creatinine 1.49 H, Estim Creat Clear Calc 53.81, Est GFR (MDRD) Non-Af 50 L, BUN/Creatinine Ratio 8.7 L, Glucose 162 H, Calcium 9.7, Total Bilirubin 5.33 H, AST 486 H, ALT 835 H,Alkaline Phosphatase 228 H, Total Protein 7.4, Albumin 4.3, Globulin 3.1, Albumin/Globulin Ratio 1.4, Lipase > 3000 H Imaging Radiology Impression Gallbladder Ultrasound 04/25/25 22:10 IMPRESSION: Cholelithiasis without evidence of acute cholecystitis. Reading Location: [facility] Assessment & Plan Assessment/Plan (1) Jaundice: (2) Cholelithiasis: (3) Pancreatitis: (4) Transaminitis: PLAN: Plan 1 gallstone pancreatitis?admit patient to general medical floor, IV morphine 4 mg every 2 hours as needed for pain, will add Zofran as needed for nausea symptoms as well. Consult acquisition advisor Dr. Villatoro for possible ERCP and to general surgery for consult. Patient will be n.p.o. with IV normal saline at150 cc/h, repeat CBC CMP and lipase in the a.m. 2. DVT prophylaxis?low molecular weight heparin 3. Smoking cessation encouraged 4. Alcohol use?patient denies withdrawal symptoms in the past we will monitor for signs of withdrawal Charges/Coding Visit Charges Inpatient E&M: 00689 Init Hosp L2 04/26/25 0006 <Electronically signed by Jose Mora MD> Cosigner Signature (if applicable): CC: Dr. Jose Mora MD; Dr. Erwin Garcia MD~ Signed [facility] Work Phone: [phone]) 100-630606-10-2025 Discharge summary Author Konstantin Bradford [facility] Note Date/Time April 25, 2025 11:59 pm [facility] Medical Records Department [address] [place] [address] Emergency Department Summary 04/25/25 MR#: [id number] Acct: [id number] Name: HOLLIE CULLEN Rep #:[id number] : 1950 74 From: Konstantin Bradford DO PCP: Dr. Erwin Garcia MD Status:R EG ER Location: ED HPI History of Present Illness Chief Complaint: Abd Pain Narrative Narrative: Patient is a 74-year-old male with past medical history of chronic kidney disease status post right nephrectomy, hyperlipidemia, alcohol use who presentedto the emergency department chief complaint of concern that his gallbladder is being obstructed by stone. He states that on Friday he had significant pain he went to a freestanding ER in [place] and had a CT scan that showed a large stone at that point in time. He states that as the weekend progressed and into today's pain significantly worsened prompting him to come here for further evaluation management. He states that he has followed with Dr. Richmond in the past and states that he has a upcoming appointment on Friday with her but does not feel that he can make it till then. He states that he was post have his gallbladder removed in the past but the right kidney was not functioning appropriately and they wanted to have that kidney removed prior to proceeding with any other surgeries. [facility] Medical History Wears glasses Wears dentures [...] #30 cap s 02/08/25 Unknown Rx release oxycodone 5 mg tablet 5 mg PO Q6H PRN pain 7 days #14 02/25/25 Unknown Rx tabs tamsulosin 0.4 mg capsule (Flomax) 0.4 mg PO DAILY #30 caps 02/27/25 Unknown Rx Allergy/AdvReac Type Severity Reaction Status Date / Time No Known Allergies Allergy Verified 04/25/25 21:09 Family History Mother Diabetes Brother Diabetes Colon cancer Surgical History Hx of laparoscopy Status post appendectomy Social History Smoking Status: Light Smoker (<10/day) quit status: not considering quitting ROS ROS ED ROS Narrative Constitutional: Denies fevers, chills, headaches Cardiovascular: Denies chest pain or palpitations Respiratory: Denies shortness of breath Abdomen: Complains of abdominal pain as noted above : Denies urinary symptoms Neurological: Denies numbness, aches, tingling Musculoskeletal: Denies back pain Skin: Denies rashes or lesions EXAM Physical Exam Narrative Exam Narrative: General: Patient lying in bed did appear to be uncomfortable secondary to his abdominal pain Head: Atraumatic, normocephalic Eyes: PERRL bilaterally, EOMI bilaterally, no conjunctival injection noted Neck: Soft, supple, trachea midline Cardiovascular: Regular rate and rhythm Respiratory: Clear to auscultation bilaterally Abdomen: Soft, nondistended, tender to palpation in the right upper quadrant positive Palomino sign no rebound or guarding on exam Extremities: +5/5 strength noted in the bilateral upper and lower extremities Neurological: Patient follow commands knew that he was at [facility] Skin: Warm, dry, intact patient does appear to be slightly jaundiced Const Vital Signs: 04/25/25 21:06 04/25/25 23:05 04/25/25 23:48 Temperature 97.5 F L 98.6 F Temperature Source Oral Pulse Rate 73 65 65 Respiratory Rate 16 18 Blood Pressure 119/67 119/62 Blood Pressure Mean 84 81 Pulse Ox 91 92 Oxygen Delivery Method Room Air MDM [facility] MDM Narrative Medical decision making narrative: Patient is a 74-year-old male who presents to the emerged from chief complaint of abdominal pain and concern for cholecystitis. On the differential diagnosis includes but not limited to acute cholecystitis, pancreatitis, bowel obstruction, cholelithiasis, choledocholithiasis, cholangitis. Once workup is obtained reviewed he will be reevaluated. Patient be given IV fluids morphine Zofran Patient CBC reviewed showed no evidence leukocytosis white blood count normal at10.9, he was 15.8, platelet count was 197. Patient sodium is 140, potassium normal 3.9, creatinine was 1.49 this appears to be around his baseline as he hasunderlying chronic kidney disease. Patient total bilirubin elevated at 5.33 ASTand ALT are 46 and 835 respectively alk phosphatase elevated to 28, lipase greater than 3000. Patient's gallbladder ultrasound reviewed which showed cholelithiasis without evidence of acute cholecystitis. Discussed case with on-call general surgeon Dr. Arnold who states that he likely needs ERCP and later on they will discuss about taking his gallbladder out. Called and discussed with Dr. Villatoro who states that he will take care of the patient tomorrow. Will discuss case with hospitalist for admission. Discussed case with admitting physician Dr. Mora who accept patient for admission. Patient notified is agreeable to plan all question concerns answered Lab Data Labs: Laboratory Results - last 24 hr 04/25/25 21:16 WBC 10.9 RBC 5.66 Hgb 15.8 Hct 47.8 MCV 84.5 MCH 27.9 MCHC 33.1 RDW Std Deviation 42.5 RDW Coeff of Mildred 13.9 Plt Count 197 MPV 11.1 Immature Gran % (Auto) 0.400 Neut % (Auto) 76.3 H Lymph % (Auto) 10.5 L Webster % (Auto) 11.7 H Eos % (Auto) 0.7 Baso % (Auto) 0.4 Absolute Neuts (auto) 8.3 H Absolute Lymphs (auto) 1.15 Nucleated RBC % 0 Sodium 140 Potassium 3.9 Chloride 104 Carbon Dioxide 22.9 Anion Gap 13 BUN 13 Creatinine 1.49 H Estim Creat Clear Calc 53.81 Est GFR (MDRD) Non-Af 50 L BUN/Creatinine Ratio 8.7 L Glucose 162 H Calcium 9.7 Total Bilirubin 5.33 H AST 486 H ALT 835 H Alkaline Phosphatase 228 H Total Protein 7.4 Albumin 4.3 Globulin 3.1 Albumin/Globulin Ratio 1.4 Lipase > 3000 H Radiography Diagnostic Testing: Clinical Impression(s) from Imaging Studies Gallbladder Ultrasound 04/25/25 22:10 IMPRESSION: Cholelithiasis without evidence of acute cholecystitis. Reading Location: [facility] Discharge Plan Triage Chief Complaint: Abd Pain ED Provider: Konstantin Bradford Dx/Rx/DC Orders Clinical Impression: Transaminitis, Pancreatitis, Cholelithiasis, Jaundice Prescriptions: No Action omeprazole 40 mg capsule,delayed release(DR/EC) 40 mg PO QDAY Qty: 30 3RF Rx Instructions: swallow whole; do not crush, chew, dissolve, cut, break multivitamin with folic acid [Thera] 1 TABLET tablet 1 tab PO DAILY simvastatin 40 mg tablet 40 mg PO QHS montelukast 10 mg tablet 10 mg PO QHS dutasteride 0.5 mg capsule 0.5 mg PO DAILY oxycodone 5 mg tablet 5 mg PO Q6H PRN (Reason: pain) 7 Days Qty: 14 0RF tamsulosin [Flomax] 0.4 mg capsule 0.4 mg PO DAILY Qty: 30 1RF Primary Care Provider: Erwin Garcia Referrals: Erwin Garcia MD [Primary Care Provider] - Print Language: Citizen Of [place] Disposition Disposition: Acute Care Hospital [facility] What to do if you have Problems For any increased pain, shortness of breath, bleeding, nausea or vomiting, chestpain, or any unexpected problems, contact your Primary Care Provider. Call [facility] ([phone]) or report to the closest Emergency Room. Call 911 if necessary. 04/25/25 0015 <Electronically signed by Konstantin Bradford DO> Cosigner Signature (if applicable): CC: Dr. Erwin Garcia MD ~ Signed [facility] Work Phone: [phone] 687-982806-10-2025 History and physical note [facility] Medical Records Department [address] [place] [id number] History & Physical Exam 04/25/25 4145 MR#: [id number] Acct: [id number] Name: HOLLIE CULLEN Rep #:[id number] : 1950 74 From: Jose Mora MD PCP: Dr. Erwin Garcia MD Status:R EG ER Location: ED [facility] General Date of Service: 04/25/25 Chief Complaint: Acute abdominal pain HPI Narrative HOLLIE CULLEN, is a 74 M who presents to the emergency room with chief complaint of abdominal pain. Patient had similar episode of abdominal pain was seen at a freestanding urgent care and had aCT scan done which showed cholelithiasis and he was discharged home. The pain is subsequently become moresevere and he came to the emergency room for evaluation. He was previously scheduled to see his surgeon on Friday to plan for cholecystectomy but was unable to wait for that appointment due to pain at this time. Ultrasound done today shows gallstone, lipase was greater than 3000, total bilirubin was elevated 5.3, AST 486, ALT 835, alk phos 228 CBC was within normal limits. 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 Patient also has a history ofalcohol use and drinks 2-3 beers a day but denies havinghad withdrawal symptomsin the past and has gone periods of time without drinking. Patient will be admitted to general medical floor, made n.p.o. with IV fluids and consult to for ERCP and Dr. Arnold for surgical consult. [facility] Medical History Wears glasses Wears dentures Wears [...] #30 cap s 02/08/25 Unknown Rx release oxycodone 5 mg tablet 5 mg PO Q6H PRN pain 7 days #14 02/25/25 Unknown Rx tabs tamsulosin 0.4 mg capsule (Flomax) 0.4 mg PO DAILY #30 caps 02/27/25 Unknown Rx Allergy/AdvReac Type Severity Reaction Status Date / Time No Known Allergies Allergy Verified 04/25/25 21:09 Family History Mother Diabetes Brother Diabetes Colon cancer Surgical History Hx of laparoscopy Status post appendectomy Social History Smoking Status: Light Smoker (<10/day) quit status: not considering quitting ROS Constitutional Constitutional: Denies chills or fever(s) Eyes Eyes: Denies blurry vision ENT HEENT: Denies abnormal hearing Cardiovascular Cardiovascular: Denies chest pain Respiratory/Chest Respiratory/Chest: Denies shortness of breath at rest Gastrointestinal Gastrointestinal: Reports abdominal pain and nausea Genitourinary Genitourinary: Denies dysuria Musculoskeletal Musculoskeletal: Denies back pain Integumentary Integumentary: Reports jaundice Neurologic Neurologic: Denies abnormal gait Psychiatric Psychiatric: Denies anxiety Vital Signs Vital Signs Vital Signs: 04/25/25 21:06 04/25/25 23:05 04/25/25 23:48 Temperature 97.5 F L 98.6 F Temperature Source Oral Pulse Rate 73 65 65 Respiratory Rate 16 18 Blood Pressure 119/67 119/62 Blood Pressure Mean 84 81 Pulse Ox 91 92 Oxygen Delivery Method Room Air Weight Weight: 226 lb 8 oz Body Mass Index (BMI) 32.5 Physical Exam Const oriented x3 General Appearance: cooperative and well developed HEENT normocephalic and head/scalp atraumatic Eyes PERRL Neck no lymphadenopathy Lymph Lymphatic: no lymphadenopathy noted Resp normal respiratory effort, normal air movement and clear to auscultation bilaterally Cardio regular rate, regular rhythm, S1 normal heart sound and S2 normal heart sound GI Inspection: abdominal distention Palpation: tender epigastric and RUQ Extremity normal capillary refill Skin General Skin Exam: no breakdown Neuro no focal motor deficits and no sensory deficits noted Psych thought process normal, cooperative and affect normal Results Lab / Micro Data 04/25/25 21:16 04/25/25 21:16 Labs: Laboratory Results - last 24 hr 04/25/25 21:16: WBC 10.9, RBC 5.66, Hgb 15.8, Hct 47.8, MCV 84.5, MCH 27.9, MCHC33.1, RDW Std Deviation 42.5, RDW Coeff of Mildred 13.9, Plt Count 197, MPV 11.1, Immature Gran % (Auto) 0.400, Neut % (Auto) 76.3 H, Lymph % (Auto) 10.5 L, Webster % (Auto) 11.7 H, Eos % (Auto) 0.7, Baso % (Auto) 0.4, Absolute Neuts (auto) 8.3 H, Absolute Lymphs (auto) 1.15, Nucleated RBC % 0, Sodium 140, Potassium 3.9, Chloride 104, Carbon Dioxide 22.9, Anion Gap 13, BUN 13, Creatinine 1.49 H, Estim Creat Clear Calc 53.81, Est GFR (MDRD) Non-Af 50 L, BUN/Creatinine Ratio 8.7 L, Glucose 162 H, Calcium 9.7, Total Bilirubin 5.33 H, AST 486 H, ALT 835 H,Alkaline Phosphatase 228 H, Total Protein 7.4, Albumin 4.3, Globulin3.1, Albumin/Globulin Ratio 1.4, Lipase > 3000 H Imaging Radiology Impression Gallbladder Ultrasound 04/25/25 22:10 IMPRESSION: Cholelithiasis without evidence of acute cholecystitis. Reading Location: [id number] Assessment & Plan Assessment/Plan (1) Jaundice: (2) Cholelithiasis: (3) Pancreatitis: (4) Transaminitis: PLAN: Plan 1 gallstone pancreatitis?admit patient to general medical floor, IV morphine 4 mg every 2 hours as needed for pain, will add Zofran as needed for nausea symptoms as well. Consult acquisition advisor Dr. Villatoro for possible ERCP and to general surgery for consult. Patient will be n.p.o. with IV normal saline at150 cc/h, repeat CBC CMP and lipase in the a.m. 2. DVT prophylaxis?low molecular weight heparin 3. Smoking cessation encouraged 4. Alcohol use?patient denies withdrawal symptoms in the past we will monitor for signs of withdrawal Charges/Coding Visit Charges Inpatient E&M: 29138 Init Hosp L2 04/26/25 0006 Cosigner Signature (if applicable): CC: Dr. Jose Mora MD; Dr. Erwin Garcia MD~ Signed [facility]06-09-2025 Discharge summary [facility] Medical Records Department [address] [place] [address] Emergency Department Summary 04/25/25 MR#: [id number] Acct: [id number] Name: HOLLIE CULLEN Rep #:[id number] : 1950 74 From: Konstantin Bradford DO PCP: Dr. Erwin Garcia MD Status:R EG ER Location: ED HPI History of Present Illness Chief Complaint: Abd Pain Narrative Narrative: Patient is a 74-year-old male with past medical history of chronic kidney disease status post rightnephrectomy, hyperlipidemia, alcohol use who presentedto the emergency department chief complaint of concern that his gallbladder is being obstructed by stone. He states that on Friday he had significant pain he went to a freestanding ER in [place] and had a CT scan that showed a large stone at that point in time. He states that as the weekend progressed and into today's pain significantly worsened prompting him to come here for further evaluation management. He states that he has followed with Dr. Richmond in the past and states that he has a upcoming appointment on Friday with her but does not feel that he can make it till then. He states that he was post have his gallbladder removedin the past but the right kidney was not functioning appropriately and they wanted to have that kidney removed prior to proceeding with any other surgeries. [facility] Medical History Wears glasses Wears dentures [...] #30 cap s 02/08/25 Unknown Rx release oxycodone 5 mg tablet 5 mg PO Q6H PRN pain 7 days #14 02/25/25 Unknown Rx tabs tamsulosin 0.4 mg capsule (Flomax) 0.4 mg PO DAILY #30 caps 02/27/25 Unknown Rx Allergy/AdvReac Type Severity Reaction Status Date / Time No Known Allergies Allergy Verified 04/25/25 21:09 Family History Mother Diabetes Brother Diabetes Colon cancer Surgical History Hx of laparoscopy Status post appendectomy Social History Smoking Status: Light Smoker (<10/day) quit status: not considering quitting ROS ROS ED ROS Narrative Constitutional: Denies fevers, chills, headaches Cardiovascular: Denies chest pain or palpitations Respiratory: Denies shortness of breath Abdomen: Complains of abdominal pain as noted above : Denies urinary symptoms Neurological: Denies numbness, aches, tingling Musculoskeletal: Denies back pain Skin: Denies rashes or lesions EXAM Physical Exam Narrative Exam Narrative: General: Patient lying in bed did appear to be uncomfortable secondary to his abdominal pain Head: Atraumatic, normocephalic Eyes: PERRL bilaterally, EOMI bilaterally, no conjunctival injection noted Neck: Soft, supple, trachea midline Cardiovascular: Regular rate and rhythm Respiratory: Clear to auscultation bilaterally Abdomen: Soft, nondistended, tender to palpation in the right upper quadrant positive Palomino sign no rebound or guarding on exam Extremities: +5/5 strength noted in the bilateral upper and lower extremities Neurological: Patient follow commands knew that he was at [facility] [id number] Skin: Warm, dry, intact patient does appear to be slightly jaundiced Const Vital Signs: 04/25/25 21:06 04/25/25 23:05 04/25/25 23:48 Temperature 97.5 F L 98.6 F Temperature Source Oral Pulse Rate 73 65 65 Respiratory Rate 16 18 Blood Pressure 119/67 119/62 Blood Pressure Mean 84 81 Pulse Ox 91 92 Oxygen Delivery Method Room Air MDM MDM MDM Narrative Medical decision making narrative: Patient is a 74-year-old male who presents to the emerged from chief complaint of abdominal pain and concern for cholecystitis. On the differential diagnosis includes but not limited to acute cholecystitis, pancreatitis, bowel obstruction, cholelithiasis, choledocholithiasis, cholangitis. Once workup is obtained reviewed he will be reevaluated. Patient be given IV fluids morphine Zofran Patient CBC reviewed showed no evidence leukocytosis white blood count normal at10.9, he was 15.8, platelet count was 197. Patient sodium is 140, potassium normal 3.9, creatinine was 1.49 this appears to be around his baseline as he hasunderlying chronic kidney disease. Patient total bilirubin elevated at 5.33 ASTand ALT are 46 and 835 respectively alk phosphatase elevated to 28, lipase greater than 3000. Patient's gallbladder ultrasound reviewed which showed cholelithiasis without evidence of acute cholecystitis. Discussed case with on-call general surgeon Dr. Arnold who states that he likely needs ERCP andlater on they will discuss about taking his gallbladder out. Called and discussed with Dr. Villatoro who states that he will take care of the patient tomorrow. Will discuss case with hospitalist for admission. Discussed case with admitting physician Dr. Mora who accept patient for admission. Patient notified is agreeable to plan all question concerns answered Lab Data Labs: Laboratory Results - last 24 hr 04/25/25 21:16 WBC 10.9 RBC 5.66 Hgb 15.8 Hct 47.8 MCV 84.5 MCH 27.9 MCHC 33.1 RDW Std Deviation 42.5 RDW Coeff of Mildred 13.9 Plt Count 197 MPV 11.1 Immature Gran % (Auto) 0.400 Neut % (Auto) 76.3 H Lymph % (Auto) 10.5 L Webster % (Auto) 11.7 H Eos % (Auto) 0.7 Baso % (Auto) 0.4 Absolute Neuts (auto) 8.3 H Absolute Lymphs (auto) 1.15 Nucleated RBC % 0 Sodium 140 Potassium 3.9 Chloride 104 Carbon Dioxide 22.9 Anion Gap 13 BUN 13 Creatinine 1.49 H Estim Creat Clear Calc 53.81 Est GFR (MDRD) Non-Af 50 L BUN/Creatinine Ratio 8.7 L Glucose 162 H Calcium 9.7 Total Bilirubin 5.33 H AST 486 H ALT 835 H Alkaline Phosphatase 228 H Total Protein 7.4 Albumin 4.3 Globulin 3.1 Albumin/Globulin Ratio 1.4 Lipase > 3000 H Radiography Diagnostic Testing: Clinical Impression(s) from Imaging Studies Gallbladder Ultrasound 04/25/25 22:10 IMPRESSION: Cholelithiasis without evidence of acute cholecystitis. Reading Location: [facility] Discharge Plan Triage Chief Complaint: Abd Pain ED Provider: Konstantin Bradford Dx/Rx/DC Orders Clinical Impression: Transaminitis, Pancreatitis, Cholelithiasis, Jaundice Prescriptions: No Action omeprazole 40 mg capsule,delayed release(DR/EC) 40 mg PO QDAY Qty: 30 3RF Rx Instructions: swallow whole; do not crush, chew, dissolve, cut, break multivitamin with folic acid [Thera] 1 TABLET tablet 1 tab PO DAILY simvastatin 40 mg tablet 40 mg PO QHS montelukast 10 mg tablet 10 mg PO QHS dutasteride 0.5 mg capsule 0.5 mg PO DAILY oxycodone 5 mg tablet 5 mg PO Q6H PRN (Reason: pain) 7 Days Qty: 14 0RF tamsulosin [Flomax] 0.4 mg capsule 0.4 mg PO DAILY Qty: 30 1RF Primary Care Provider: Erwin Garcia Referrals: Erwin Garcia MD [Primary Care Provider] - Print Language: Citizen Of [place] Disposition Disposition: Acute Care Hospital [facility] What to do if you have Problems For any increased pain, shortness of breath, bleeding, nausea or vomiting, chestpain, or any unexpected problems, contact your Primary Care Provider. Call [facility] ([phone]) or report tothe closest Emergency Room. Call 911 if necessary. 04/25/25 6833 Cosigner Signature (if applicable): CC: Dr. Erwin Garcia MD ~ Signed [facility]06-09-2025 [facility] Medical Records Department [address] [place] [address] History Physical Exam 04/25/25 2535 MR#: [id number] Acct: [id number] Name: HOLLIE CULLEN Rep #: [id number] : 1950 74 From: Jose Mora MD PCP: Dr. Erwin Garcia MD Status:REG ER Location: ED HPI - General General Date of Service: 04/25/25 Chief Complaint: Acute abdominal pain HPI Narrative HOLLIE CULLEN, is a 74 M who presents to the emergency room with chief complaint of abdominal pain. Patient had similar episode of abdominal pain was seen at a freestanding urgent care and had a CT scan done which showed cholelithiasis and he was discharged home. The pain is subsequently become more severe and he came to the emergency room for evaluation. He was previously scheduled to see his surgeon on Friday to plan for cholecystectomy but was unable to wait for that appointment due to pain at this time. Ultrasound done today shows gallstone, lipase was greater than 3000, total bilirubin was elevated 5.3, AST 486, ALT 835, alk phos 228 CBC was within normal limits. 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 Patient also has a history of alcohol use and drinks 2-3 beers a day but denies having had withdrawal symptoms in the past and has gone periods of time without drinking. Patient will be admitted to general medical floor, made n.p.o. with IV fluids and consult to Dr. Villatoro for ERCP and Dr. Arnold for surgical consult. [facility] Medical History Wears glasses Wears dentures Wears [...] mg tablet 10 mg PO QHS allergies 03/17/25 04 /10/25 History simvastatin 40 mg tablet 40 mg PO QHS 01/31/25 Unknown Hist ory omeprazole 40 mg capsule,delayed 40 mg PO QDAY #30 caps 02/08/25 Un known Rx release oxycodone 5 mg tablet 5 mg PO Q6H PRN pain 7 days #14 Unknown Rx tabs tamsulosin 0.4 mg capsule (Flomax) 0.4 mg PO DAILY #30 caps 5 Unknown Rx Allergy/AdvReac Type Severity Reaction Status Date / Time No Known Allergies Allergy Verified 04/25/25 21:09 Family History Mother Diabetes Brother Diabetes Colon cancer Surgical History Hx of laparoscopy Status post appendectomy Social History Smoking Status: Light Smoker (<10/day) quit status: not considering quitting ROS Constitutional Constitutional: Denies chills or fever(s) Eyes Eyes: Denies blurry vision ENT HEENT: Denies abnormal hearing Cardiovascular Cardiovascular: Denies chest pain Respiratory/Chest Respiratory/Chest: Denies shortness of breath at rest Gastrointestinal Gastrointestinal: Reports abdominal pain and nausea Genitourinary Genitourinary: Denies dysuria Musculoskeletal Musculoskeletal: Denies back pain Integumentary Integumentary: Reports jaundice Neurologic Neurologic: Denies abnormal gait Psychiatric Psychiatric: Denies anxiety Vital Signs Vital Signs Vital Signs: 04/25/25 21:06 04/25/25 23:05 04/25/25 23:48 Temperature 97.5 F L 98.6 F Temperature Source Oral Pulse Rate 73 65 65 Respiratory Rate 16 18 Blood Pressure 119/67 119/62 Blood Pressure Mean 84 81 Pulse Ox 91 92 Oxygen Delivery Method Room Air Weight Weight: 226 lb 8 oz Body Mass Index (BMI) 32.5 Physical Exam Const oriented x3 General Appearance: cooperative and well developed HEENT normocephalic and head/scalp atraumatic Eyes PERRL Neck no lymphadenopathy Lymph Lymphatic: no lymphadenopathy noted Resp normal respiratory effort, normal air movement and clear to auscultation bilaterally Cardio regular rate, regular rhythm, S1 normal heart sound and S2 normal heart sound GI Inspection: abdominal distention Palpation: tender epigastric and RUQ Extremity normal capillary refill Skin General Skin Exam: no breakdown Neuro no focal motor deficits and no sensory deficits noted Psych thought process normal, cooperative and affect normal Results Lab / Micro Data 04/25/25 21:16 04/25/25 21:16 Labs: Laboratory Results - last 24 hr 04/25/25 21:16: WBC 10.9, RBC 5.66, Hgb 1 (more content not included)...[facility]06-09-2025 Radiology Diagnostic study note [facility] Imaging Services [address] [place] [address] Gallbladder MR#: [id number] Acct: [id number] Name: HOLLIE CULLEN Rep #: [id number] : 1950 M 74 From: Magda Portillo MD PCP: Dr. Erwin Garcia MD Status: R ER Study:Gallbladder Date of Exam: 04/25/25 Exam# [id number] Ordering Dr: Miah Bradford DO PROCEDURE: GALLBLADDER 04/25/2025 REASON FOR EXAM: RUQ PAIN COMPARISON: Right upper quadrant ultrasound and CT abdomen pelvis 01/31/2025. FINDINGS: Liver: Diffusely echogenic suggesting fatty infiltration. Normal in size measuring 14.5 cm. The main portal vein is patent with normal directional flow at midline. Gallbladder: A single echogenic gallstone is identified. No gallbladder wall thickening, pericholecystic fluid or tenderness. Common bile duct: Normal measuring 0.4 cm. Pancreas: Obscured by bowel gas. Other: Prior right nephrectomy. US/Gallbladder IMPRESSION: Cholelithiasis without evidence of acute cholecystitis. Reading Location: [id number] CC: Dr. Konstantin Bradford DO; Dr. Erwin Garcia MD ~ [employer]er: Signed [facility]06-09-2025 Instructions* Patient Instructions* Erwin Garcia MD - 04/25/2025 3:46 PM EDT - Use your remaining oxycodone 5 mg tablets (prescribed by Dr. Romero) for severe abdominal pain asneeded, keeping in mind that opioids can mask worsening symptoms. - If your pain becomes uncontrolled by the oxycodone or you develop new or worsening symptoms (for example, increasing pain, fever, or inability to eat/drink), go back to the emergency room without waiting for your surgery appointment. - Keep track of any new fever or other concerning signs at home and seek immediate care if they occur. - Attend your surgical consultation for gallstones with Dr. Richmond at [facility] on Friday to discuss definitive treatment. [facility] NoteHNO ID: [id number] Author: ERWIN GARCIA MD Service: ? Author Type: Physician Type: Progress Notes Filed: 04/25/2025 16:41 Note Text: This note was created using Auth0ter. Subjective Patient presents with: ER F/U Hollie Cullen is a 74 year old male here with spouse. Recording using Skycross software for draft documentation of the visit was discussed with the patient/authorized signs and displays sales representative; all questions welcomed and answered. Patient/authorized signs and displays sales representative agreed to proceed Abdominal Pain: - Evaluated at [facility] in [place] 04/23/25. - Severe pain in the upper abdomen radiating to the chest and back. - Pain improved since ED visit but remains significant; persistent over the past two days. - Described as pressure in the upper abdomen, exacerbated by deep breathing. - Associated with bloating, early satiety, and excessive burping. - Difficulty eating and drinking due to feeling stuffed. - Denies nausea or feeling sick. - ED visit on April 23 at [facility]; diagnosed with gallstones. - Scheduled to see Dr. Richmond, a surgeon at [facility], on Friday. - No pain medication provided at ED; only antiemetics. - Has oxycodone 5 mg at home, prescribed by Dr. Romero in February post-nephrectomy; took only one pill post-surgery. Review of Systems Cardiovascular: (+) chest pressure Respiratory: (+) pain with deep inspiration, (-) shortness of breath Gastrointestinal: (+) upper abdominal pain, (+) abdominal bloating, (+) early satiety, (+) excessive belching Musculoskeletal: (+) upper back pain ACTIVE PROBLEM LIST Tobacco Use Disorder Chronic Rhinitis Hyperlipidemia CKD (chronic kidney disease) stage 3, GFR 30-59 ml/min (HCC) Impaired Fasting Glucose Obesity, Class I, Bmi 30-34.9 Bph With Obstruction/Lower Urinary Tract Symptoms Personal History of Skin Cancer Calculus of Gallbladder Without Cholecystitis Without Obstruction Social History Tobacco Use Smoking status: Every [...] Take 0.4 mg by mouth once daily. ammonium lactate (LAC-HYDRIN) 12 % cream Apply to affected area once daily. Dry skin. simvastatin (ZOCOR) 40 mg tablet Take 1 tablet by mouth daily at bedtime. dutasteride (AVODART) 0.5 mg capsule Take 1 capsule by mouth once daily. montelukast (SINGULAIR) 10 mg tablet Take 1 tablet by mouth daily at bedtime. For allergies. MULTIVITAMIN TAB Take one(1) tablet daily. No current facility-administered medications for this visit. Objective BP 132/80 Pulse 68 Temp 37.1 ?C (98.7 ?F) Resp 16 Wt 102.9 kg (226 lb 13.7 oz) BMI 32.48 kg/m? Physical Exam Constitutional: General: He is not in acute distress. Appearance: He is not ill-appearing or diaphoretic. Eyes: General: No scleral icterus. Conjunctiva/sclera: Conjunctivae normal. Cardiovascular: Rate and Rhythm: Normal rate and regular rhythm. Heart sounds: No murmur heard. No gallop. Pulmonary: Effort: No respiratory distress. Breath sounds: No wheezing, rhonchi or rales. Chest: Chest wall: No tenderness. Abdominal: Palpations: Abdomen is soft. There is no mass. Tenderness: There is abdominal tenderness in the epigastric area. There is no right CVA tenderness, left CVA tenderness, guarding or rebound. Negative signs include Palomino's sign. Hernia: No hernia is present. Musculoskeletal: Right lower leg: No edema. Left lower leg: No edema. Neurological: Mental Status: He is alert. CT abdomen pelvis wo IV contrast Final [...] on previous exam in 2013. A tubular fl (more content not included)...[facility]06[facility] History of Present illness Narrative* Erwin Garcia MD - 04/25/2025 3:28 PM EDT This note was created using NoteWriter. Subjective Patient presents with: ER F/U Hollie Margaret Subhash is a 74 year old male here with spouse. Recording using Skycross software for draft documentation of the visit was discussed with the patient/authorized signs and displays sales representative; all questions welcomed and answered. Patient/authorized signs and displays sales representative agreed to proceed Abdominal Pain: - Evaluated at [facility] in [place] 04/23/25. - Severe pain in the upper abdomen radiating to the chest and back. - Pain improved since ED visit but remains significant; persistent over the past two days. - Described as pressure in the upper abdomen, exacerbated by deep breathing. - Associated with bloating, early satiety, and excessive burping. - Difficulty eating and drinking due to feeling stuffed. - Denies nausea or feeling sick. - ED visit on April 23 at [facility] in [place]; diagnosed with gallstones. - Scheduled to see Dr. Richmond, a surgeon at [facility], on Friday. - No pain medication provided at ED; only antiemetics. - Has oxycodone 5 mg at home, prescribed by Dr. Romero in February post- nephrectomy; took only one pill post-surgery. Review of Systems Cardiovascular: (+) chest pressure Respiratory: (+) pain with deep inspiration, (-) shortness of breath Gastrointestinal: (+) upper abdominal pain, (+) abdominal bloating, (+) early satiety, (+) excessive belching Musculoskeletal: (+) upper back pain ACTIVE PROBLEM LIST Tobacco Use Disorder Chronic Rhinitis Hyperlipidemia CKD (chronic kidney disease) stage 3, GFR 30-59 ml/min (HCC) Impaired Fasting Glucose Obesity, Class I, Bmi 30-34.9 Bph With Obstruction/Lower Urinary Tract Symptoms Personal History of Skin Cancer Calculus of Gallbladder Without Cholecystitis Without Obstruction Social History Tobacco Use Smoking status: Every [...] Take 0.4 mg by mouth once daily. ammonium lactate (LAC-HYDRIN) 12 % cream Apply to affected area once daily. Dry skin. simvastatin (ZOCOR) 40 mg tablet Take 1 tablet by mouth daily at bedtime. dutasteride (AVODART) 0.5 mg capsule Take 1 capsule by mouth once daily. montelukast (SINGULAIR) 10 mg tablet Take 1 tablet by mouth daily at bedtime. For allergies. MULTIVITAMIN TAB Take one(1) tablet daily. No current facility-administered medications for this visit. Objective BP 132/80 Pulse 68 Temp 37.1 C (98.7 F) Resp 16 Wt 102.9 kg (226 lb 13.7 oz) BMI 32.48 kg/m Physical Exam Constitutional: General: He is not in acute distress. Appearance: He is not ill-appearing or diaphoretic. Eyes: General: No scleral icterus. Conjunctiva/sclera: Conjunctivae normal. Cardiovascular: Rate and Rhythm: Normal rate and regular rhythm. Heart sounds: No murmur heard. No gallop. Pulmonary: Effort: No respiratory distress. Breath sounds: No wheezing, rhonchi or rales. Chest: Chest wall: No tenderness. Abdominal: Palpations: Abdomen is soft. There is no mass. Tenderness: There is abdominal tenderness in the epigastric area. There is no right CVA tenderness,left CVA tenderness, guarding or rebound. Negative signs include Palomino's sign. Hernia: No hernia is present. Musculoskeletal: Right lower leg: No edema. Left lower leg: No edema. Neurological: Mental Status: He is alert. CT abdomen pelvis wo IV contrast Final [...] Remy Ernst 04/24/2025 12:23 AM Dictation workstation: [id number] XR chest 1 view Final Result No acute cardiopulmonary disease. Signed by Rom Torres SERIAL TROPONIN-INITIAL - Normal Troponin I, High Sensitivity 5 HEPATIC FUNCTION PANEL - Abnormal Albumin 4.0 Bilirubin, Total 0.3 Bilirubin, Direct 0.1 Alkaline Phosphatase 83 ALT 69 (*) AST 113 (*) Total Protein 6.4 Lipase 51 Assessment and Plan 1. Calculus of gallbladder without cholecystitis without obstruction - ICD9: 574.20, ICD10: K80.20 - Use your remaining oxycodone 5 mg tablets (prescribed by Dr. Romero) for severe abdominal pain asneeded, keeping in mind that opioids can mask worsening symptoms. - If your pain becomes uncontrolled by the oxycodone or you develop new or worsening symptoms (for example, increasing pain, fever, or inability to eat/drink), go back to the emergency room without waiting for your surgery appointment. - Keep track of any new fever or other concerning signs at home and seek immediate care if they occur. - Attend your surgical consultation for gallstones with Dr. Richmond at [facility] on Friday to discuss definitive treatment. Erwin Garcia MD [facility] Discharge summary Author Konstantin Bradford [facility] Note Date/Time April 25, 2025 11:59 pm [facility] Medical Records Department [address] [place] [address] Emergency Department Summary 04/25/25 MR#: [id number] Acct: [id number] Name: HOLLIE CULLEN Rep #:[id number] : 1950 74 From: Konstantin Bradford DO PCP: Dr. Erwin Garcia MD Status:R ER Location: ED HPI History of Present Illness Chief Complaint: Abd Pain Narrative Narrative: Patient is a 74-year-old male with past medical history of chronic kidney disease status post right nephrectomy, hyperlipidemia, alcohol use who presentedto the emergency department chief complaint of concern that his gallbladder is being obstructed by stone. He states that on Friday he had significant pain he went to a freestanding ER in [place] and had a CT scan that showed a large stone at that point in time. He states that as the weekend progressed and into today's pain significantly worsened prompting him to come here for further evaluation management. He states that he has followed with Dr. Richmond in the past and states that he has a upcoming appointment on Friday with her but does not feel that he can make it till then. He states that he was post have his gallbladder removed in the past but the right kidney was not functioning appropriately and they wanted to have that kidney removed prior to proceeding with any other surgeries. [facility] Medical History Wears glasses Wears dentures [...] #30 cap s 02/08/25 Unknown Rx release oxycodone 5 mg tablet 5 mg PO Q6H PRN pain 7 days #14 02/25/25 Unknown Rx tabs tamsulosin 0.4 mg capsule (Flomax) 0.4 mg PO DAILY #30 caps 02/27/25 Unknown Rx Allergy/AdvReac Type Severity Reaction Status Date / Time No Known Allergies Allergy Verified 04/25/25 21:09 Family History Mother Diabetes Brother Diabetes Colon cancer Surgical History Hx of laparoscopy Status post appendectomy Social History Smoking Status: Light Smoker (<10/day) quit status: not considering quitting ROS ROS ED ROS Narrative Constitutional: Denies fevers, chills, headaches Cardiovascular: Denies chest pain or palpitations Respiratory: Denies shortness of breath Abdomen: Complains of abdominal pain as noted above : Denies urinary symptoms Neurological: Denies numbness, aches, tingling Musculoskeletal: Denies back pain Skin: Denies rashes or lesions EXAM Physical Exam Narrative Exam Narrative: General: Patient lying in bed did appear to be uncomfortable secondary to his abdominal pain Head: Atraumatic, normocephalic Eyes: PERRL bilaterally, EOMI bilaterally, no conjunctival injection noted Neck: Soft, supple, trachea midline Cardiovascular: Regular rate and rhythm Respiratory: Clear to auscultation bilaterally Abdomen: Soft, nondistended, tender to palpation in the right upper quadrant positive Palomino sign no rebound or guarding on exam Extremities: +5/5 strength noted in the bilateral upper and lower extremities Neurological: Patient follow commands knew that he was at [facility] [id number] Skin: Warm, dry, intact patient does appear to be slightly jaundiced Const Vital Signs: 04/25/25 21:06 04/25/25 23:05 04/25/25 23:48 Temperature 97.5 F L 98.6 F Temperature Source Oral Pulse Rate 73 65 65 Respiratory Rate 16 18 Blood Pressure 119/67 119/62 Blood Pressure Mean 84 81 Pulse Ox 91 92 Oxygen Delivery Method Room Air MDM MDM MDM Narrative Medical decision making narrative: Patient is a 74-year-old male who presents to the emerged from chief complaint of abdominal pain and concern for cholecystitis. On the differential diagnosis includes but not limited to acute cholecystitis, pancreatitis, bowel obstruction, cholelithiasis, choledocholithiasis, cholangitis. Once workup is obtained reviewed he will be reevaluated. Patient be given IV fluids morphine Zofran Patient CBC reviewed showed no evidence leukocytosis white blood count normal at10.9, he was 15.8, platelet count was 197. Patient sodium is 140, potassium normal 3.9, creatinine was 1.49 this appears to be around his baseline as he hasunderlying chronic kidney disease. Patient total bilirubin elevated at 5.33 ASTand ALT are 46 and 835 respectively alk phosphatase elevated to 28, lipase greater than 3000. Patient's gallbladder ultrasound reviewed which showed cholelithiasis without evidence of acute cholecystitis. Discussed case with on-call general surgeon Dr. Arnold who states that he likely needs ERCP and later on they will discuss about taking his gallbladder out. Called and discussed with Dr. Villatoro who states that he will take care of the patient tomorrow. Will discuss case with hospitalist for admission. Discussed case with admitting physician Dr. Mora who accept patient for admission. Patient notified is agreeable to plan all question concerns answered Lab Data Labs: Laboratory Results - last 24 hr 04/25/25 21:16 WBC 10.9 RBC 5.66 Hgb 15.8 Hct 47.8 MCV 84.5 MCH 27.9 MCHC 33.1 RDW Std Deviation 42.5 RDW Coeff of Mildred 13.9 Plt Count 197 MPV 11.1 Immature Gran % (Auto) 0.400 Neut % (Auto) 76.3 H Lymph % (Auto) 10.5 L Webster % (Auto) 11.7 H Eos % (Auto) 0.7 Baso % (Auto) 0.4 Absolute Neuts (auto) 8.3 H Absolute Lymphs (auto) 1.15 Nucleated RBC % 0 Sodium 140 Potassium 3.9 Chloride 104 Carbon Dioxide 22.9 Anion Gap 13 BUN 13 Creatinine 1.49 H Estim Creat Clear Calc 53.81 Est GFR (MDRD) Non-Af 50 L BUN/Creatinine Ratio 8.7 L Glucose 162 H Calcium 9.7 Total Bilirubin 5.33 H AST 486 H ALT 835 H Alkaline Phosphatase 228 H Total Protein 7.4 Albumin 4.3 Globulin 3.1 Albumin/Globulin Ratio 1.4 Lipase > 3000 H Radiography Diagnostic Testing: Clinical Impression(s) from Imaging Studies Gallbladder Ultrasound 04/25/25 22:10 IMPRESSION: Cholelithiasis without evidence of acute cholecystitis. Reading Location: [facility] Discharge Plan Triage Chief Complaint: Abd Pain ED Provider: Konstantin Bradford Dx/Rx/DC Orders Clinical Impression: Transaminitis, Pancreatitis, Cholelithiasis, Jaundice Prescriptions: No Action omeprazole 40 mg capsule,delayed release(DR/EC) 40 mg PO QDAY Qty: 30 3RF Rx Instructions: swallow whole; do not crush, chew, dissolve, cut, break multivitamin with folic acid [Thera] 1 TABLET tablet 1 tab PO DAILY simvastatin 40 mg tablet 40 mg PO QHS montelukast 10 mg tablet 10 mg PO QHS dutasteride 0.5 mg capsule 0.5 mg PO DAILY oxycodone 5 mg tablet 5 mg PO Q6H PRN (Reason: pain) 7 Days Qty: 14 0RF tamsulosin [Flomax] 0.4 mg capsule 0.4 mg PO DAILY Qty: 30 1RF Primary Care Provider: Erwin Garcia Referrals: Erwin Garcia MD [Primary Care Provider] - Print Language: Citizen Of [place] Disposition Disposition: Acute Care Hospital [facility] What to do if you have Problems For any increased pain, shortness of breath, bleeding, nausea or vomiting, chestpain, or any unexpected problems, contact your Primary Care Provider. Call [facility] ([phone]) or report to the closest Emergency Room. Call 911 if necessary. 04/25/25 2595 <Electronically signed by Konstantin Bradford DO> Cosigner Signature (if applicable): CC: Dr. Erwin Garcia MD ~ Signed [facility] Work Phone: 1(432) 858-946606-08-2025 Hospital Discharge instructions* Discharge Instructions* Justina Kim MD - 04/24/2025 12:39 AM EDT Please feel free to return to the emergency department with any additional concerns. * Attachments The following attachments cannot be sent through Care Everywhere. * Gallstones Discharge Instructions (Citizen Of [place]) documented in this [facility] Work Phone: 1(356) 426-128306-07-2025 Physician Emergency department Note* Justina Kim MD - 04/23/2025 10:19 PM EDT 74-year-old male smoker history of high cholesterol presents with a chief complaint of anterior chest pain starting about 20 to 30 minutes prior to arrival while watching TV. It was associated with shortness of breath and profuse diaphoresis. He did take 1 sublingual nitro without significant improv ement. He describes the chest pain as heavy and constant as if someone was sitting on his chest. Noradiating symptoms to extremity neck or jaw. Review [...] performed using a different testing methodology at [facility] than at [facility]. Direct result comparisons should only be made [...] performed using a different testing methodology at [facility] than at [facility]. Direct result comparisons should only be made [...] Abnormality Status --------- ------ Troponin I, High Sensiti...[[id number]] Normal Final result Troponin, High Sensitivi...[[id number]] Normal Final result Please view results for [...] Remy Ernst 04/24/2025 12:23 AM Dictation workstation: [id number] XR chest 1 view Final Result No [...] did take 1 sublingual nitro without significant improv ement. He describes the chest pain as heavy and constant as if someone was sitting on his chest. Noradiating symptoms to extremity neck or jaw. Shortly [...] seen a surgeon regarding his gallbladder from [place] in the past. I believe he should [...] without cholecystitis without obstruction Biliary colic Justina W [place], MD 04/23/25 2220 Justina iKm MD 04/24/25 0040 [facility] Work Phone: [phone]) 868-807506-07-2025 Emergency department Note* Justina Kim MD - 04/23/2025 10:19 PM EDT 74-year-old male smoker history of high cholesterol presents with a chief complaint of anterior chest pain starting about 20 to 30 minutes prior to arrival while watching TV. It was associated with shortness of breath and profuse diaphoresis. He did take 1 sublingual nitro without significant improv ement. He describes the chest pain as heavy and constant as if someone was sitting on his chest. Noradiating symptoms to extremity neck or jaw. Review [...] performed using a different testing methodology at [facility] than at other [facility]. Direct result comparisons should only be made [...] performed using a different testing methodology at [facility] than at other [facility]. Direct result comparisons should only be made [...] Abnormality Status --------- ------ Troponin I, High Sensiti...[[id number]] Normal Final result Troponin, High Sensitivi...[[id number]] Normal Final result Please view results for [...] Remy Ernst 04/24/2025 12:23 AM Dictation workstation: [id number] XR chest 1 view Final Result No [...] did take 1 sublingual nitro without significant improv ement. He describes the chest pain as heavy and constant as if someone was sitting on his chest. Noradiating symptoms to extremity neck or jaw. Shortly [...] seen a surgeon regarding his gallbladder from [place] in the past. I believe he should [...] Kim MD 04/24/25 0040 documented in this [facility] Work Phone: 1(922) 749-997705-02-2025 NoteHNO ID: [id number] Author: ERWIN GARCIA MD Service: ? Author Type: Physician Type: Progress Notes Filed: 03/18/2025 10:10 Note Text: This note was created using Auth0ter. Subjective Hollie Cullen is a 74 year [...] kidney disease) stage 3, GFR 30-59 ml/min ([facility]) Impaired Fasting Glucose Obesity, Class I, Bmi 30-34.9 Bph With Obstruction/Lower Urinary Tract Symptoms Personal History of Skin Cancer Calculus of Gallbladder Without Cholecystitis Without Obstruction PAST SURGICAL HISTORY Procedure Laterality Date APPENDECTOMY 1962 COLONOSCOPY FLX DX W/COLLJ SPEC WHEN PFRMD 1996 Colonoscopy - Polyps COLONOSCOPY FLX DX W/COLLJ SPEC WHEN PFRMD 08/15/2008 Colonoscopy COLONOSCOPY FLX DX W/COLLJ SPEC WHEN PFRMD 06/07/2013 Colonoscopy COLONOSCOPY FLX DX W/COLLJ SPEC WHEN PFRMD 08/19/2018 Colonoscopy F COLONOSCOPY WITH POLYPECTOMY 06/12/2023 LAPAROSCOPY, ENTEROLYSIS 01/25/2014 [facility] NEPHRECTOMY TOT URETERECANDBLDR CUFF SEPAR INCISN Right 02/25/2025 [facility] OPTX ANKLE DISLOCATION [...] is alert. Gait: Gait normal. Latest Ref Rn 03/15/2025 Protein, Total 6.3 - 8.0 g/dL [...] mg/dL 128 Legend: (H) (more content not included)...[facility] History of Present illness Narrative* Erwin Garcia MD - 03/18/2025 9:50 AM EDT This note was created using [employer]. Subjective Hollie Cullen is a 74 year [...] kidney disease) stage 3, GFR 30-59 ml/min ([facility]) Impaired Fasting Glucose Obesity, Class I, Bmi 30-34.9 Bph With Obstruction/Lower Urinary Tract Symptoms Personal History of Skin Cancer Calculus of Gallbladder Without Cholecystitis Without Obstruction PAST SURGICAL HISTORY Procedure Laterality Date APPENDECTOMY 1962 COLONOSCOPY FLX DX W/COLLJ SPEC WHEN PFRMD 1996 Colonoscopy - Polyps COLONOSCOPY FLX DX W/COLLJ SPEC WHEN PFRMD 08/15/2008 Colonoscopy COLONOSCOPY FLX DX W/COLLJ SPEC WHEN PFRMD 06/07/2013 Colonoscopy COLONOSCOPY FLX DX W/COLLJ SPEC WHEN PFRMD 08/19/2018 Colonoscopy F COLONOSCOPY WITH POLYPECTOMY 06/12/2023 LAPAROSCOPY, ENTEROLYSIS 01/25/2014 [facility] NEPHRECTOMY TOT URETEREC&BLDR CUFF SEPAR INCISN Right 02/25/2025 [facility] OPTX ANKLE DISLOCATION [...] with surgery as needed. Erwin Garcia MD * Erwin Garcia MD - 03/18/2025 9:32 AM EDT Images from the original note [...] PCP - General (Internal Medicine) Khadijah Raman APRN.GEOTECHNICAL FIELD TECHNICIAN as Tailor Helper (Internal Medicine) Isael Lebron APRN, CNP (Lung [...] not ready to quit [facility] Instructions* Patient Instructions* Erwin Garcia MD - 03/18/2025 9:42 AM [...] review all the medicines you take, even [id number] medicines. As you get older, the way medicines work in your body can change. Some medicines, or combinations of medicines, can make you sleepy or dizzy andcan cause you to fall. 3. Have your [...] have certain medical conditions. documented in this [facility]25 NoteHNO ID: [id number] Author: ERWIN GARCIA MD Service: ? Author [...] PCP - General (Internal Medicine) Khadijah Raman APRN.GEOTECHNICAL FIELD TECHNICIAN as Tailor Helper (Internal Medicine) Isael Lebron APRN, CNP (Lung [...] quitting strategies. Patient is not ready to [facility]Tr[facility]04-[facility]25 Telephone encounter Note* Telephone Encounter - Manda Gr LPN - 03/14/2025 2:36 PM EDT notified fasting labs have been ordered. Manda Gr LPN [facility]04-28-2025 Miscellaneous Notes* Telephone Encounter - Manda Gr LPN - 03/14/2025 2:36 PM EDT notified fasting labs have been ordered. Manda Gr LPN * Telephone Encounter - Patricia Mckinney LPN - 03/14/2025 9:09 AM EDT Pt's calls to report that pt has an appt 5/2 and is asking if pt needs to get labs done beforeappt. reports they will be in town tomorrow and would like to get the labs done then since they live in [place]. Call when labs have been ordered. Patricia Mckinney LPN documented in this encounterMem[facility] Telephone encounter Note * Telephone Encounter - Patricia Mckinney LPN - 03/14/2025 9:09 AM EDT Pt's calls to report that pt has an appt 5/2 and is asking if pt needs to get labs done beforeappt. reports they will be in town tomorrow and would like to get the labs done then since they live in [place]. Call when labs have been ordered. Patricia Mckinney LPN [facility]04-28-2025 Evaluation note* Diagnosis Impaired fasting glucose Stage 3a chronic kidney disease (HCC) Hyperlipidemia, unspecified hyperlipidemia type documented in this encounter [facility]04-16-2025 Telephone encounter Note* Telephone Encounter - Trona Huong Barker - 03/02/2025 9:22 AM EDT [...] tablet by mouth daily at bedtime. Huong Barker March 02, 2025 9:23 AM [facility]04-16-2025 Miscellaneous Notes* Telephone Encounter - Trona Huong Barker - 03/02/2025 9:22 AM EDT [...] tablet by mouth daily at bedtime. Huong Barker March 02, 2025 9:23 AM documented in this encounterMem[facility] Consult note [facility] Medical Records Department [address] [place] [address] Pre-Anesthesia Evaluation 02/25/25 0710 MR#: [id number] Acct: [id number] Name: HOLLIE CULLEN Rep #:[id number] : 1950 74 From: José Michael MD PCP: Dr. Erwin Garcia MD Status:R EG [facility] Y Race: C Location: [place] [address] ASA Classification* ASA Classification ASA Classification: 2 [...] Nephrectomy, Ureterectomy Anesthesia History Anesthesia History - shipping 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: Anesthesia History - shipping 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 Hx Hospitalization No 02/11/25 13:33 Any Problems [...] take am of surgery PONV PONV - shipping 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: PONV - shipping 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 Female No 02/11/25 13:33 HX of Motion [...] 02/25/25 06:26 Respiratory Assessment Respiratory Assessment - shipping 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: Respiratory Tract Infection Hx - shipping 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 Hx Respiratory Tract Infection No 02/11/25 13:33 STOP Sleep Apnea 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 Hx Hypertension No 02/11/25 13:33 Hx Sleep [...] Tobacco Use History Tobacco Use History - shipping 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: Tobacco Use History - shipping 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 Tobacco Use Smoking Status Light Smoker (<10/day) 02/11/25 13:33 Hx Tobacco Use Yes 02/11/25 13:33 Years Smoking 50 02/11/25 13:33 Packs Smoked per Day 1 02/11/25 13:33 Smoking Cessation Date was within the last 15 years Hx Smoking Cessation Date Hx Smoking Cessation Counseling Hematologic Medial History Hematologic Hx - shipping 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: Hematologic Medical Hx - telephone solicitor supervisor Hx of Blood Transfusion No 02/11/25 13:33 [...] confused, unrespo /Reproduction History /Reproductive History - shipping 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: /Reproductive Hx- shipping 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 Hx Now No 02/11/25 13:33 Gestational Age [...] MD Cosigner Signature: Date CC: ~ Signed [facility]04-13-2025 Consult note [facility] Medical Records Department [address] [place] [address] Anesthesia Postop Eval II 02/25/25 1111 MR#: [id number] Acct: [id number] Name: HOLLIE CULLEN Rep #:[id number] : 1950 74 From: José Michael MD PCP: Dr. Erwin Garcia MD Status:A DM [place] Y Race: C Location: [place] [address] Anesthesia Postop Eval I Sum Postop Eval Completion status Anesthesia document: Postop Eval 1 completed: Yes Anesthesia Postop Eval I Summary Anesthesia Postop Eval I Summary: Anesthesia Postop Eval I: Assessment Summary Airway patent Yes 02/25/25 10:06 RATE CLERK [email or web address] Spontaneous unlabored Yes 02/25/25 10:06 RATE CLERK [email or web address] respirations Mental status Awake,Calm 02/25/25 10:06 RATE CLERK [email or web address] nausea No 02/25/25 10:06 RATE CLERK [email or web address] Vomiting No 02/25/25 10:06 RATE CLERK [email or web address] Anesthesia Postop Eval I: Fluid Summary Crystalloid volume administer 1,600 02/25/25 10:06 RATE CLERK [email or web address] (ml) Colloids volume administered ( ml) Blood Product volume administered (ml) Total IV fluid infused 1,600 02/25/25 10:06 RATE CLERK [email or web address].[email or web address] Anesthesia Postop Eval I: Summary Notes Anesthesia Complication No 02/25/25 10:06 RATE CLERK [email or web address].[email or web address] Anesthesia Complication Comment: Post-operative progress note Anesthesia: Postop Eval II Evaluation Mental status: Awake Pain Level: 0 nausea: No Vomiting: No 02/25/25 1111 > Date _ José Haney Signature: Date CC: ~ Signed [facility]04-13-2025 Discharge summary [facility] Medical Records Department [address] [place] [address] Instructions for Home/Discharge Instructions 02/25/25 0944 MR#: [id number] Acct: [id number] Name: HOLLIE CULLEN Rep #:[id number] : 1950 74 From: Los Romero MD PCP: Dr. Erwin Garcia MD Status:R [facility] Discharge Instructions Diet Discharge [...] Up With: Los Romero MD When: Call [phone] for an appointment Test Results: Test results from this visit will be discussed in further detail at your follow- up appointment, if applicable. Discharge Plan Admission Primary Reason for Your Visit: Right nephro ureterectomy Attending Provider: Los Romero Primary Care Provider: Erwin Garcia Instructions Print Language: Citizen Of [place] Discharge Orders/Prescriptions Prescriptions: New oxycodone 5 mg [...] CC: Dr. Erwin Garcia MD ~ Signed [facility]04-13-2025 History and physical note [facility] Medical Records Department [address] [place] [address] History & Physical Exam 02/25/25 0944 MR#: [id number] Acct: [id number] Name: HOLLIE CULLEN Rep #:[id number] : 1950 74 From: Los Romero MD PCP: Dr. Erwin Garcia MD Status:[facility] Location: [place] [address] HPI - General General Date of Service: 02/25/25 Chief Complaint: Right nonfunctioning kidney HPI Narrative HOLLIE CULLEN, is a 74 M who presents removal of a large right nonfunctioning kidney that is giving him pain and problems recently with a hospital with an infection. [facility] Medical History Wears glasses Wears dentures Wears [...] Romero MD; Dr. Erwin Garcia MD~ Signed [facility]04-13-2025 Progress note [facility] Medical Records Department [address] [place] [address] Progress Note - Urology 02/26/25 0903 MR#: [id number] Acct: [id number] Name: SUBHASH,HOLLIE EPPERSON Rep #:[id number] : 1950 74 From: Los Romero MD PCP: Dr. Erwin Garcia MD Status:A DM [facility] Location: MS3 ON227-3 Subjective Subjective s/p right nephro U doing [...] 76.9 H, Lymph % (Auto) 11.0 L, Webster % (Auto) 11.4 H, Eos % (Auto) [...] Cosigner Signature (if applicable): CC: ~ Signed [facility]04-13-2025 Progress note Author Los Romero [facility] Note Date/Time February 27, 2025 9:5 2am [facility] Medical Records Department [address] [place] [address] Progress Note - Urology 02/27/25950 MR#: [id number] Acct: [id number] Name: SUBHASHHOLLIE Rep #:[id number] : 1950 74 From: Los Romero MD PCP: Dr. Erwin Garcia MD Status:A DM [place] Location: MS3 ID211-8 Subjective Subjective s/p right nephro U anyi [...] % (Auto) 65.4, Lymph % (Auto) 19.8, Webster % (Auto) 12.2 H, Eos % (Auto) [...] Cosigner Signature (if applicable): CC: ~ Signed [facility] Work Phone: 1(683) 680-473104-13-2025 Progress note [facility] Medical Records Department [address] [place] [address] Progress Note - Urology 02/27/25 0951 MR#: [id number] Acct: [id number] Name: SUBHASHHOLLIE Rep #:[id number] : 1950 74 From: Los Romero MD PCP: Dr. Erwin Garcia MD Status:A DM [place] Location: MS3 KN226-3 Subjective Subjective s/p right nephro U anyi [...] Neut% (Auto) 65.4, Lymph % (Auto) 19.8, Webster % (Auto) 12.2 H, Eos % (Auto) [...] Cosigner Signature (if applicable): CC: ~ Signed [facility]04-12-2025 Progress note Author Los Romero [facility] Note Date/Time February 27, 2025 2:4 6pm [facility] Medical Records Department [address] [place] [address] Progress Note - Urology 02/26/25 0903 MR#: [id number] Acct: [id number] Name: SUBHASHHOLLIE Rep #:[id number] : 1950 74 From: Los Romero MD PCP: Dr. Erwin Garcia MD Status:A DM [place] Location: MS3 HM099-4 Subjective Subjective s/p right nephro U doing [...] 76.9 H, Lymph % (Auto) 11.0 L, Webster % (Auto) 11.4 H, Eos % (Auto) [...] Cosigner Signature (if applicable): CC: ~ Signed [facility] Work Phone: 1(718) 242-984004-11-2025 Consult note Author José Michael [facility] Note Date/Time February 27, 2025 2:4 6pm [facility] Medical Records Department [address] [place] [address] Anesthesia Postop Eval II 02/25/25 1111 MR#: [id number] Acct: [id number] Name: HOLLIE CULLEN Rep #:[id number] : 1950 74 From: José Michael MD PCP: Dr. Erwin Garcia MD Status:A DM MARYCHUY Y Race: C Location: [place] [address] Anesthesia Postop Eval I Sum Postop Eval Completion status Anesthesia document: Postop Eval 1 completed: Yes Anesthesia Postop Eval I Summary Anesthesia Postop Eval I Summary: Anesthesia Postop Eval I: Assessment Summary Airway patent Yes 02/25/25 10:06 RATE CLERK [email or web address].[email or web address] Spontaneous unlabored Yes 02/25/25 10:06 RATE CLERK PASSENGER.[email or web address] respirations Mental status Awake,Calm 02/25/25 10:06 RATE CLERK PASSENGER.[email or web address] nausea No 02/25/25 10:06 RATE CLERK PASSENGER.[email or web address] Vomiting No 02/25/25 10:06 RATE CLERK PASSENGER.[email or web address] Anesthesia Postop Eval I: Fluid Summary Crystalloid volume administer 1,600 02/25/25 10:06 RATE CLERK PASSENGER.[email or web address] (ml) Colloids volume administered ( ml) Blood Product volume administered (ml) Total IV fluid infused 1,600 02/25/25 10:06 RATE CLERK PASSENGER.PKEL Anesthesia Postop Eval I: Summary Notes Anesthesia Complication No 02/25/25 10:06 RATE CLERK PASSENGER.[email or web address] Anesthesia Complication Comment: Post-operative progress note Anesthesia: Postop Eval II Evaluation Mental status: Awake Pain Level: 0 nausea: No Vomiting: No 02/25/25 1111 <Electronically signed by José Michael MD > Date _ José Michael MD Cosigner Signature: Date CC: ~ Signed [facility] Work Phone: 1(133) 494-277404-11-2025 Consult note Author Riley Grewal [facility] Note Date/Time February 25, 2025 10: 06am [facility] Medical Records Department [address] [place] [address] [place] [address] Anesthesia Postop Eval I 02/25/25 1005 MR#: [id number] Acct: [id number] Name: HOLLIE CULLEN Rep #:[id number] : 1950 74 From: Riley Grewal CRNA PCP: Dr. Erwin Garcia MD Status:A DM [place]ARY[place] Y Race: C Location: [place] [address] Anesthesia: Postop Eval I Current Vital Signs [...] by Riley leyva CRNA> Date _ Riley Grewal CRNA Cosigner Signature: Date CC: ~ Signed [facility] Work Phone: 1(414) 348-121104-11-2025 Discharge summary Author Los Romero [facility] Note Date/Time February 27, 2025 2:4 6pm [facility] Medical Records Department [address] [place] [address] Instructions for Home/Discharge Instructions 02/25/25 0944 MR#: [id number] Acct: [id number] Name: SUBHASHHOLLIE Rep #:[id number] : 1950 74 From: Los Romero MD PCP: Dr. Erwin Garcia MD Status:R EG [facility] Discharge Instructions Diet Discharge Diet: No restrictions DC O2, CPAP, BIPAP needs Home O2 Discharge instructions: No Dressing / Incision Discharge Activity: Return to Normal Activity and May Not Drive (while taking narcotic pain medications.) Dressing / Incision Call your doctor if you observe: Fever of 101 or Higher Follow Up Care Please Follow Up With: Los Romero MD When: Call [phone] for an appointment Test Results: Test results from this visit will be discussed in further detail at your follow- up appointment, if applicable. Discharge Plan Admission Primary Reason for Your Visit: Right nephro ureterectomy Attending Provider: Los Romero Primary Care Provider: Erwin Garcia Instructions Print Language: Citizen Of [place] Discharge Orders/Prescriptions Prescriptions: New oxycodone 5 mg [...] Order can be placed): Home, Self Care 02/25/25943<Electronically signed by Los Romero MD>Los Romero MD CC: Dr. Erwin Garcia MD ~ Signed [facility] Work Phone: 1(264) 279-407604-11-2025 History and physical note Author Los Romero [facility] Note Date/Time February 27, 2025 2:4 6pm [facility] Medical Records Department [address] [place] [address] History & Physical Exam 02/25/25943 MR#: [id number] Acct: [id number] Name: HOLLIE CULLEN Rep #:[id number] : 1950 74 From: Los Romero MD PCP: Dr. Erwin Garcia MD Status:[facility] Location: [place] [address] HPI - General General Date of Service: 02/25/25 Chief Complaint: Right nonfunctioning kidney HPI Narrative HOLLIE CULLEN, is a 74 M who presents removal of a large right nonfunctioning kidney that is giving him pain and problems recently with a hospital with an infection. [facility] Medical History Wears glasses Wears dentures Wears [...] Romero MD; Dr. Erwin Garcia MD~ Signed [facility] Work Phone: 1(660) 322-863504-11-2025 Consult note [facility] Medical Records Department [address] [place] [address] Anesthesia Postop Eval I 02/25/25 1005 MR#: [id number] Acct: [id number] Name: SUBHASHHOLLIE Rep #:[id number] : 1950 74 From: Riley Grewal CRNA PCP: Dr. Erwin Garcia MD Status:A DM [place] Y Race: C Location: [place] [address] Anesthesia: Postop Eval I Current Vital Signs [...] Eval 1 completed: Yes 02/25/25 1006 y RATE CLERK PASSENGER> Date _ Riley Grewal RATE CLERK PASSENGER Cosigner Signature: Date CC: ~ Signed [facility]04-11-2025 Procedure note [facility] Medical Records Department [address] [place] [address] Operative Report 02/25/25 0944 MR#: [id number] Acct: [id number] Name: HOLLIE CULLEN Rep #:[id number] : 1950 74 From: Los Romero MD PCP: Dr. Erwin Garcia MD Status:[facility] Location: [place] [address] Operative Report (Standard) Operative Information Date of Procedure: 02/25/25 Pre-Operative Diagnosis: Right nonfunctioning kidney hydroureteronephrosis Post-Operative Diagnosis: The same Surgery/Procedure Performed: Laparoscopic robotic assisted right nephro ureterectomy food processing chemist: No Type of Anesthesia: General RN Documented [...] a air seal port suction for the melter assistant I then docked the robot we [...] Romero MD; Dr. Erwin Garcia MD~ Signed [facility]04-11-2025 [facility] Medical Records Department [address] [place] [address] History Physical Exam 02/25/25 0944 MR#: [id number] Acct: [id number] Name: HOLLIE CULLEN Rep #: [id number] : 1950 74 From: Los Romero MD PCP: Dr. Erwin Garcia MD Status:[facility] Location: [place] [address] HPI - General General Date of Service: 02/25/25 Chief Complaint: Right nonfunctioning kidney HPI Narrative HOLLIE CULLEN, is a 74 M who presents removal of a large right nonfunctioning kidney that is giving him pain and problems recently with a hospital with an infection. [facility] Medical History Wears glasses Wears dentures Wears [...] Los Romero MD; Dr. Erwin Garcia MD [facility] Consult note Author José Michael [facility] Note Date/Time February 27, 2025 2:4 6pm [facility] Medical Records Department [address] [place] [address] Pre-Anesthesia Evaluation 02/25/25 0710 MR#: [id number] Acct: [id number] Name: SUBHASHHOLLIE Rep #:[id number] : 1950 74 From: José Michael MD PCP: Dr. Erwin Garcia MD Status:R EG [facility] Y Race: C Location: [place] [address] ASA Classification* ASA Classification ASA Classification: 2 [...] Nephrectomy, Ureterectomy Anesthesia History Anesthesia History - shipping 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: Anesthesia History - shipping 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 Hx Hospitalization No 02/11/25 13:33 Any Problems [...] take am of surgery PONV PONV - shipping 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: PONV - shipping 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 Female No 02/11/25 13:33 HX of Motion [...] 02/25/25 06:26 Respiratory Assessment Respiratory Assessment - shipping 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: Respiratory Tract Infection Hx - shipping 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 Hx Respiratory Tract Infection No 02/11/25 13:33 STOP Sleep Apnea 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 Hx Hypertension No 02/11/25 13:33 Hx Sleep [...] Tobacco Use History Tobacco Use History - shipping 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: Tobacco Use History - shipping 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 Tobacco Use Smoking Status Light Smoker (<10/day) 02/11/25 13:33 Hx Tobacco Use Yes 02/11/25 13:33 Years Smoking 50 02/11/25 13:33 Packs Smoked per Day 1 02/11/25 13:33 Smoking Cessation Date was within the last 15 years Hx Smoking Cessation Date Hx Smoking Cessation Counseling Hematologic Medial History Hematologic Hx - shipping 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: Hematologic Medical Hx - telephone solicitor supervisor Hx of Blood Transfusion No 02/11/25 13:33 [...] confused, unrespo /Reproduction History /Reproductive History - shipping 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: /Reproductive Hx- shipping 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 Hx Now No 02/11/25 13:33 Gestational Age [...] José Michael MD > Date _ José Micahel MD Cosigner Signature: Date CC: ~ Signed [facility] Work Phone: 1(807) 845-129303-24-2025 Evaluation note* Diagnosis Onset Date Resolution Status Admit Date Bloating symptom acute February 072024 9:25am Gallstones acute February 07 9:25am Kidney atrophy acute January 9:25am Bloating symptom acute February 142024 1:33pm Gallstones acute February 14 1:33pm Kidney atrophy acute January 1:33pm [facility] Work Phone: 1(557) 555-716603-24-2025 Evaluation note* Diagnosis Onset Date Resolution Status Admit Date Bloating symptom acute February 072024 9:25am Gallstones acute February 07 9:25am Kidney atrophy acute January 9:25am Bloating symptom acute February 142024 1:33pm Gallstones acute February 14 1:33pm Kidney atrophy acute January 1:33pm Cholelithiasis acute April 26, 2025 12:10am Jaundice acute April 26 12:10am Pancreatitis acute April 26, 2 025 12:10am Transaminitis acute April 26, 2025 12:10am [facility] Work Phone: 1(464) 438-144203-24-2025 Evaluation note* Diagnosis Onset Date Resolution Status Admit Date Bloating symptom acute February 072024 9:25am Gallstones acute February 07 9:25am Kidney atrophy acute January 9:25am Bloating symptom acute February 142024 1:33pm Gallstones acute February 14 1:33pm Kidney atrophy acute January 1:33pm Cholelithiasis acute April 26, 2025 12:06am Jaundice acute April 26 12:06am Pancreatitis acute April 26, 2 025 12:06am Transaminitis acute April 26, 2025 12:06am [facility] Work Phone: 1(334) 694-853803-17-2025 Discharge summary [facility] Medical Records Department [address] [place] [address] Emergency Department Summary 01/31/25 MR#: [id number] Acct: [id number] Name: HOLLIE CULLEN Rep #:[id number] : 1950 74 From: Rashi Shaikh PCP: [...] of Present Illness Chief Complaint: Abd Pain [facility] Medical History (Updated 01/31/25 @ 11:07 [...] surgery recommendations This note was generated with Pawzii dictation software. It may contain incorrectwords, spelling, [...] 70.8 H Lymph % (Auto) 16.0 L Webster % (Auto) 10.8 H Eos % (Auto) [...] Clarity Cloudy Urine pH 6.0 Ur Specific [place] 1.015 Urine Protein 15 H Urine [...] side. Diffuse bladder wall thickening. Reading Location: [facility] Abdomen Ultrasound 01/31/25 13:15 IMPRESSION: Sludge and gallstones seen within the gallbladder lumen with evidence of gallbladder wall thickening and pericholecystic fluid. Acute cholecystitis should be ruled out. Abnormal appearance of the right kidney as described. Fatty infiltration of the liver. Hepatomegaly. Reading Location: [facility] Discharge Plan Triage Chief Complaint: Abd [...] MD [Primary Care Provider] - Print Language: Citizen Of [place] What to do if you have Problems For any increased pain, shortness of breath, bleeding, nausea or vomiting, chestpain, or any unexpected problems, contact your Primary Care Provider. Call [facility] ([phone]) or report tothe closest Emergency Room. Call 911 if necessary. 01/31/25 1621 Cosigner Signature (if applicable): CC: Dr. Erwin Garcia MD ~ Signed [facility]03-17-2025 Consult note [facility] Medical Records Department [address] [place] [address] Consultation - Surgical 01/31/25 1647 MR#: [id number] Acct: [id number] Name: HOLLIE CULLEN Rep #:[id number] : 1950 74 From: Elana Richmond MD [...] Deferred to urology. Elana Richmond M.D. Pager: [phone] [facility] [address] [place] [address], [facility], [address] [place] [address] Office: [phone] HPI Consult Data Date of Consult: 01/31/25 [...] there was nothing to do atthat time. [facility] Medical History (Updated 01/31/25 @ 17:16 by [...] 70.8 H, Lymph % (Auto) 16.0 L, Webster % (Auto) 10.8 H, Eos % (Auto) [...] Clarity Cloudy, Urine pH 6.0, Ur Specific [place] 1.015, Urine Protein 15 H, Urine [...] side. Diffuse bladder wall thickening. Reading Location: [facility] Abdomen Ultrasound 01/31/25 13:15 IMPRESSION: Sludge and gallstones seen within the gallbladder lumen with evidence of gallbladder wall thickening and pericholecystic fluid. Acute cholecystitis should be ruled out. Abnormal appearance of the right kidney as described. Fatty infiltration of the liver. Hepatomegaly. Reading Location: [facility] Charges/Coding Multi Select Codes Visit Charges Office Visit/Consults: 46968 OP Consult L4 01/31/25 1717 Cosigner Signature (if applicable): CC: Dr. Erwin Garcia MD~ Signed [facility]03-17-2025 Radiology Diagnostic study note [facility] Imaging Services [address] [place] [address] 236171 Abdomen Limited MR#: [id number] Acct: [id number] Name: HOLLIE CULLEN Rep #: [id number] : 1950 M 74 From: Ever Logan MD PCP: Dr. Erwin Garcia MD Status: R EG ER Study:Abdomen Limited Date of Exam: 01/15 06/10 Exam# [id number] Ordering Dr: Miah Lee DO PROCEDURE: ABDOMEN [...] infiltration of the liver. Hepatomegaly. Reading Location: [place] [address] CC: Dr. Rashi Lee DO; Dr. Erwin Garcia MD ~ Metal Precision Machine Assembler: Signed [facility]03-17-2025 Discharge summary Author Rashi [facility] Note Date/Time January 31, 2025 5:5 2pm [facility] Medical Records Department [address] [place] [address] Emergency Department Summary 01/31/25 MR#: [id number] Acct: [id number] Name: HOLLIE CULLEN Rep #:[id number] : 1950 74 From: Rashi Shaikh PCP: Dr. Erwin Garcia MD Status:R EG ER Location: ED ADDENDUM by Dr. Tan Mcgarry DO on 01/31/25 at [address] Romero, he will follow-up with the patient in the office. 01/31/25 175<Electronically signed by Tan Patel> Cosigner Signature (if [...] out to urology was made for discussion. 01/31/254<Electronically signed by Tan Patel> Cosigner Signature (if [...] of Present Illness Chief Complaint: Abd [facility] Medical History (Updated 01/31/25 @ 11:07 by [...] Oxygen Delivery Method Room Air Room Air [facility] Narrative Medical decision making narrative: HISTORY OF [...] History obtained from others: none Consults: none [facility] Narrative: The patient was initially hypertensive [...] surgery recommendations This note was generated with TruQuation software. It may contain incorrectwords, spelling, and [...] 70.8 H Lymph % (Auto) 16.0 L [place] % (Auto) 10.8 H Eos % (Auto) [...] Clarity Cloudy Urine pH 6.0 Ur Specific [place] 1.015 Urine Protein 15 H Urine [...] side. Diffuse bladder wall thickening. [facility]en Ultrasound 01/31/25 13:15 IMPRESSION: Sludge and gallstones seen within the gallbladder lumen with evidence of gallbladder wall thickening and pericholecystic fluid. Acute cholecystitis should be ruled out. Abnormal appearance of the right kidney as described. Fatty infiltration of the liver. Hepatomegaly. Reading Location: [place] [address] Discharge Plan Triage Chief Complaint: Abd Pain [...] MD [Primary Care Provider] - Print Language: Citizen Of [place] What to do if you have Problems For any increased pain, shortness of breath, bleeding, nausea or vomiting, chestpain, or any unexpected problems, contact your Primary Care Provider. Call [facility] ([phone]) or report to the closest Emergency Room. Call 911 if necessary. 01/31/25 1621 <Electronically signed by Rashi Lee DO> Cosigner Signature (if applicable): CC: Dr. Erwin Garcia MD ~ Signed [facility] Work Phone: 1(107) 560-146503-17-2025 Radiology Diagnostic study note [facility] Imaging Services [address] [place] [address] Abdomen/Pelvis WITH Contrast MR#: [id number] Acct: [id number] Name: HOLLIE CULLEN Rep #: [id number] : 1950 M 74 From: Ever Logan MD PCP: Dr. Erwin Garcia MD Status: R ER Study:Abdomen/Pelvis WITH Contrast Date of Ex am: 01/31/25 Exam# [id number] Ordering Dr: Miah Lee DO PROCEDURE: ABDOMEN/PELVIS [...] side. Diffuse bladder wall thickening. Reading Location: [facility] CC: Dr. Rashi Lee DO; Dr. Erwin Garcia MD ~ Metal Precision Machine Assembler: Signed [facility]03-17-2025 Telephone encounter Note* Telephone Encounter - Wendy Espinal, RN - 01/31/2025 8:14 AM EDT Protocol [...] go on. 5. PATTERN Constant 6. SEVERITY: 6/10 - MILD (1-3): Doesn't interfere with normal [...] or constipation. Protocols used: Abdominal Pain - Vctr-[id number]-CD [facility]03-17-2025 Miscellaneous Notes* Telephone Encounter - Wendy [...] go on. 5. PATTERN Constant 6. SEVERITY: 6/10 - MILD (1-3): Doesn't interfere with normal [...] or constipation. Protocols used: Abdominal Pain - Woca-XBAKF-YC [facility] Telephone encounter Note * Telephone Encounter - Leann Ibarra LPN - 10/25/2024 10:46 AM EST Pt has filled this last refill from the rx. New one would be needed for Dec 2024. [facility]12-09-2024 Miscellaneous Notes* Telephone Encounter - Leann [...] 25, 2024 8:35 AM [facility] Telephone encounter Note * Telephone Encounter [...] Diane Barker October 25, 2024 8:35 AM [facility]08-22-2024 Telephone encounter Note* Telephone Encounter - [...] Lena Barker July 08, 2024 9:29 AM [facility]08-22-2024 Miscellaneous Notes* Telephone Encounter - Lena [...] 08, 2024 9:29 AM [facility] Telephone encounter Note * Telephone Encounter - Beatrice Parker RN - 06/28/2024 8:58 AM EDT Patient's calls and notified of below. voices understanding. Beatrice Parker RN [facility]08-12-2024 Miscellaneous Notes* Telephone Encounter - Beatrice [...] recommendations. Trang Seals RN documented in [facility] encounterMem[facility] Telephone encounter Note * Telephone Encounter - Grace Avery LPN - 06/25/2024 12:53 PM EDT Phoned patient left message to return call and ask to speak to a nurse. [facility]08-09-2024 Telephone encounter Note* Telephone Encounter - Erwin Garcia MD - 06/25/2024 12:06 PM EDT That is a standard letter. His report did not show coronary artery calcifications. Still to avoid hardening of coronary arteries, it's never too late to stop smoking. [facility]08-08-2024 Telephone encounter Note* Telephone Encounter - Trang Seals RN - 06/24/2024 11:00 AM EDT Patient's calling and states they received a letter from [facility] stating that according to resultsof pt's recent Lung CT result, it is advised for them to speak with pt's PCP regarding patient's coronary artery calcifications. Please advise if further testing is warranted or any other recommendations. Trang Seals RN [facility]07-29-2024 Instructions* Patient Instructions* Isael Lebron APRN.YONIS - 06/14/2024 9:12 AM EDT Lung nodule/s: [...] final radiology report recommendations when available by Loosecubes message, letter, or phone call. We will also notify your referring provider/PCP of the results and recommendations. If you didn t schedule this before you left the office or need to reschedule, you can call in to schedule it anytime: [facility] [phone] [facility] [phone] All other [facility] locations [phone] Feel free to reach out for any questions or concerns, Isael Lebron APRN.CNP Lung Cancer Screening [phone] documented in this encounterMemorial [facility]07-[facility]-2024 NoteHNO ID: [id number] Author: ISAEL LEBRON APRN.CNP Service: ? Author [...] which included preparing to see the patient, fuhu-ux-ootr patient care, completing clinical documentation, performing a medically appropriate examination, counseling and educating the patient/family/caregiver, ordering medications, tests, or procedures, communicating with other HCPs (not separately reported), independently interpreting results (not separately reported), communicating results to the patient/family/caregiver, and care coordination (not separately reported). Isael Lebron APRN.[facility] June 14, 2024 8:48 AM History [...] maintenance inhaler for COPD. Modified Medical Research [place] Dyspnea Scale (MMRC) I only get breathless [...] 08/04/2018 103.4 kg (2 (more content not included)...[facility] 06-14-2024 History of Present illness Narrative* Isael Lebron APRN.GEOTECHNICAL FIELD TECHNICIAN - 06/14/2024 8:48 AM EDT Images from [...] which included preparing to see the patient, svvc-ng-iybh patient care, completing clinical documentation, performing a medically appropriate examination, counseling and educating the patient/family/caregiver, ordering medications, tests, or p rocedures, communicating with other HCPs (not separately reported), independently interpreting results (not separately reported), communicating results to the patient/family/caregiver, and care coordination (not separately reported). Isael Lebron, MARIA GUADALUPE.[facility] June 14, 2024 8:48 AM History [...] maintenance inhaler for COPD. Modified Medical Research [place] Dyspnea Scale (MMRC) I only get breathless [...] Good response to the Claritin as of 7-08 CKD (chronic kidney disease) stage 2, GFR [...] Colonoscopy COLONOSCOPY SCREENING 06/12/2023 LAPAROSCOPY, ENTEROLYSIS 01/25/2014 [facility] OPTX ANKLE DISLOCATION W/REPAIR/INT/XTRNL FIXJ Right 2012 [...] DATE OF EXAM: Jun 09 2023 2:19PM [facility] 0562 - CT LUNG SCREEN WO IVCON [...] without contrast. MQ: CTLCS_6 Patient characteristics: * Lsvg-hv-Stcco: 1950; Age at exam: 72 years * Gender: Male * Lung Disease: Asymptomatic (no signs or symptoms of lung disease) * Number of Pack Years: 28.5 * Current smoker (=0) or Number of Years since Quit: 0 * Ordering provider and NPI: ISAEL LEBRON [id number] * Interpreting radiologist and NPI: Mane [id number] Exam acquisition parameters: * Exam Date: 06/09/2023 2:19 PM * Site: [facility] * * CT System Station Baggage Agent: Siemens * CT System Model: Sensation * [...] Left Anterior Descending None; Right Coronary None Microcomputer Technician (topogram) images: No additional findings. Last CT Chest - Impression Only No resulted procedures found. Last XR Chest - Impression Only XR CHEST 2V FRONTAL/LAT Collected: 07/30/2017 10:25 AM (Final result) Impression: IMPRESSION: No acute radiographic abnormality. Metal Precision Machine Assembler: ASHLEY Transcribe Date/Time: Jul 31 2017 3:59P ... Pulmonary Function Testing: No textual results found for the specified procedure(s). documented in this encounterMemorial [facility] History of Present illness Narrative* Abby [...] PATIENT PRESENTS WITH AN IMPLANTABLE OR ATTACHED IT SALES EXECUTIVE: No RADIOLOGY DEPARTMENT: CT; Exam(s) Completed: Lung Screening PERIPHERAL IV DATA: Not applicable SIGNED BY: RT Connie(R) June 14, 2024 3:37 PM documented in this encounterMemorial [facility]07-29-2024 NoteHNO ID: [id number] Author: ABBY DIETZ RT(R) Service: ? Author Type: Grease Refiner Operator Type: Progress Notes Filed: 06/14/2024 15:37 [...] PATIENT PRESENTS WITH AN IMPLANTABLE OR ATTACHED IT SALES EXECUTIVE: No RADIOLOGY DEPARTMENT: CT; Exam(s) Completed: Lung Screening PERIPHERAL IV DATA: Not applicable SIGNED BY: GENO Rosales) June 14, 2024 3:37 [facility]05-02-2024 History of Present illness Narrative* Erwin Garcia MD - 03/18/2024 10:07 AM EDT This note was created using A.B Productionsriter. Subjective Hollie Cullen is a 73 year [...] kidney disease) stage 3, GFR 30-59 ml/min ([facility]) Impaired Fasting Glucose Obesity, Class [...] Mental Status: He is alert. Latest Ref Rn 03/16/2024 Protein, Total 6.3 - 8.0 g/dL [...] vaccine - ICD9: V04.89, ICD10: Z23 - UXPin-BIONTEquidam COVID-19 VACCINE ( SEASON) AGE 12+ YR [...] Hatch OD- Optometry, Kentrell Scruggs MD- Urology, [place]. Medical/Family history review Reviewed and updated problem [...] - Vaccine: Covid booster. documented in this encounterMemorial [facility]04-29-2024 Telephone encounter Note * Telephone Encounter - Manda Gr LPN - 03/15/2024 4:09 PM EDT Patient notified fasting labs have been ordered. Manda Gr LPN [facility]04-29-2024 Miscellaneous Notes* Telephone Encounter - Manda [...] them know once ordered. documented in this encounterMemorial [facility]04-29-2024 Telephone encounter Note * Telephone Encounter - Marylu Layton RN - 03/15/2024 8:13 AM EDT Pts called in asking for provider to put in lab work for Pt to get before Medicare Wellness on03/18/24. Please call 's cell phone to let them know once ordered. [facility]02-27-2024 Miscellaneous Notes* Telephone Encounter - Elisha Velásquez APRN.CNS - 01/13/2024 12:29 PM EST ok * Telephone Encounter - Beatrice Parker RN - 01/13/2024 12:04 PM EST Pharmacist from [facility] calls and states that they do not have vicoprofen. States that thisis not a common medication to order and many pharmacies will not have this medication. Patient had reported to her that he is unable to take ibuprofen. Pharmacist asking if provider can change prescri ption? Please review and advise, Beatrice Parker RN documented in this encounterMemorial Health [facility]02-27-2024 Instructions* Patient Instructions* Elisha Velásquez APRN.CNS - 01/13/2024 10:57 AM EST Continue to avoid painful activities, rest ice and elevate your knee. Continue with Tylenol as needed for pain. Try hydrocodone acetaminophen at bedtime if the pain is keeping you awake. Colace if any constipation while taking the pain medication. documented in this encounterMemorial Health [facility]02-27-2024 History of Present illness Narrative* Elisha Velásquez APRN.CNS - 01/13/2024 10:41 AM EST SUBJECTIVE: RSV Vaccine(1 - 1-dose 60+ series) Never done Advance Directive Discussion due on 11/17/2023 Depression Assessment due on 11/17/2023 HPI Hollie Cazareser is a 73 year old male. PMH significant for ACTIVE PROBLEM LIST Benign Neoplasm of Colon Tobacco Use Disorder Chronic Rhinitis Congenital Atrophy of Kidney Hyperlipidemia Skin Cancer of Scalp CKD (chronic kidney disease) stage 3, GFR 30-59 ml/min ([facility]) Impaired Fasting Glucose Obesity, Class I, Bmi 30-34.9 Bph With Obstruction/Lower Urinary Tract Symptoms Hydroureteronephrosis Special Screening for Malignant Neoplasms, Colon PCP: Erwin Garcia MD Presents today regarding right medial knee pain has been present for a few weeks. He was seen at [facility] urgent care on January 01, 2024 [...] a cyst on the R CT Abd 1108: Cystic structure on R [...] with RICE, he has been using an ctws-nvx-plswwze knee brace and Tylenol which ishelping somewhat. [...] Level: 3 - Low documented in this encounterMemorial Health [facility]02-15-2024 History of Present illness Narrative* Trell Goldman APRN-GEOTECHNICAL FIELD TECHNICIAN - 01/01/2024 9:10 AM EST 73 y.o. [...] Review Audit Reviewed by Angel Nogueira MA (Brine Plant Operator) on 01/01/24 at 0920 Medication Order Taking? Sig Documenting Provider Last Dose Status dutasteride (Avodart) 0.5 mg capsule [id number] Yes Take 1 capsule (0.5 mg) by mouth once daily. Historical Provider, Taking Active montelukast (Singulair) 10 mg tablet [id number] Yes Take 1 tablet (10 mg) by mouth. Historical Provider, Taking Active multivit with min-folic acid 0.4 mg tablet [id number] Yes once every 24 hours. Historical Provider, Taking Active simvastatin (Zocor) 40 mg tablet [id number] Yes Take 1 tablet (40 mg) by mouth once daily at bedtime. Historical Provider, Taking Active History reviewed. No pertinent past [...] or any new concerns. Trell Goldman CNP [facility] [phone] documented in this encounterTriHealth [facility] Work Phone: 1(989) 157-883002-05-2024 Miscellaneous Notes* Telephone Encounter - Manda Gr [...] Gr LPN. * Telephone Encounter - Kayy Rodriguze - 12/22/2023 8:15 AM EST Patient has [...] notify patient. Kayy Barker documented in this encounterMemorial Health [facility]09-08-2023 Miscellaneous Notes* Telephone Encounter - Lena Zuñiga - 07/25/2023 12:26 PM EDT Patient is switching pharmacies from mail order * Telephone Encounter - Lena Zuñiga - 07/25/2023 12:25 PM EDT Pharmacy verified in [facility] Patient has been identified by name and date of : Yes Patient requesting a call when RX is approved and sent to the pharmacy. Please call patient at: [phone] Spouse phones for refill(s): Requested Prescriptions Pending [...] Please advise. Lena Barker documented in this encounterMemorial [facility]07-28-2023 Miscellaneous Notes* Telephone Encounter - Isael Lebron APRN.CNP - 06/13/2023 12:56 PM EDT Phone call to patient and discussed results LDCT Lung Rads category 2-repeat CT in 12 mos documented in this encounterMemorial Health [facility]07-17-2023 Miscellaneous Notes* Telephone Encounter - Manda Gr LPN - 06/02/2023 4:46 PM EDT Patient notified of below results/recommendations. Patient is wanting to stay in [place], referral sent to Dr. Romero. Manda Gr LPN * Telephone Encounter - Manda Gr LPN - 06/02/2023 4:41 PM EDT ----- Message from Erwin Garcia MD sent at 05/31/2023 10:52 PM EDT ----- Worse chronic right hydroureteronephrosis, right kidney atrophy. Left kidney okay. I recommend urology consult. documented in this encounterMemorial Health [facility]07-12-2023 Instructions* Patient Instructions* Isael Lebron APRN.GEOTECHNICAL FIELD TECHNICIAN - 05/28/2023 10:[address] Lung [...] to endocrinology. Others Lung Cancer Screening hotline: [phone] Lung Cancer Screening [phone] Billing Questions: or [email or web address] Lung Cancer Screening Team: Marylu Manning CNP; Shanae Wilder PA-C; Abby Mills CNP; Katie Ralph CNP, Gail Gonzales PA-C, Mary Partida PA-C, Isael Lebron, GEOTECHNICAL FIELD TECHNICIAN : [phone] documented in this encounterMemorial Health [facility]07-12-2023 History of Present illness Narrative* Isael [...] pre-disease performance w/o restriction. 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 Metal Precision Machine Assembler: ASHLEY Transcribe Date/Time: Jul 31 2017 3:59P [...] 28, 2023 10:52 AM documented in this encounterMemorial Health [facility]04-27-2023 Instructions* Patient Instructions* Erwin Garcia MD [...] until the day before your colonoscopy. Designated Assistant Signal Maintainer on the Day of Your Exam A responsible family member or friend MUST come with you to your colonoscopy and REMAIN in the endoscopy area until you are discharged! You are NOT ALLOWED to drive, take a taxi or bus, or leave the Endoscopy Center ALONE. If you do not have a responsible parcel post truck driver (family member or friend) with [...] carbonated beverages such as stephanie oriana or lemon-iqugmiut soda; Gatorade or other sports drinks (not [...] calling after 5:00 PM, please call Nurse web production manager at [phone]. [facility] [address] [place] [id number] Index # 41237 Revised 12/2016 3 Colonoscopy Procedure Overview Please [...] If the nausea persists, please contact nurse electronics warfare technician at [phone]. You may experience skin irritation around the anus due to the passage of liquid stools. To prevent and treat skin irritation, you should: ?Apply Vaseline or Desitin ointment to the skin around the anus before drinking the bowel preparation medications. These products can be purchased at any [employer]. ?Wipe the skin after each bowel movement [...] performed your exam. 6 Revised 12/2016 Copyright 8288-4658 [employer] [facility]. All rights reserved. Revised 12/2016 Advance Directive Forms Advanced Directives Forms (Citizen Of [place]) FORMS: http://author.portals.[facility].org/Portals/138/[facility]-vhsqf-zv-xvnzrtay.pdf INFORMATIONAL BROCHURE: https://my.[facility].org/-/scassets/files/org/patients-visitors/inform ation/advance-directives.ashx?la=en Advance Directives (non-Citizen Of [place]) FORMS: https://my.[facility].org/patients/information/emkoroc-desdmimpc-wenvp/adva nce-directives#forms-tab Please bring completed forms to your next appointment or email them to [email or web address]. Patient Resources How to Get Started Talking with Loved Ones about your Wishes at the End of Life https://theconversationproject.org/wp-content/uploads//ConversationProjec h-GiobzMttlducBnw-Ncchzox.pdf How to Navigate Conversations with your Care Team around your Preferences [email or web address]/welcome documented in this encounterMemorial [facility]04-27-2023 History of Present illness Narrative* Erwin Garcia MD - 03/13/2023 8:35 AM EDT This note was created using NoteWriter. Subjective Hollie Cullen is a 72 year [...] kidney disease) stage 3, GFR 30-59 ml/min ([facility]) Impaired Fasting Glucose Obesity, Class [...] G-5.84 G POWDR FOR CORI Garcia MD [facility] OPEN ACCESS QUESTIONNAIRE 1. Are you [...] Please send all open access questionnaires to [facility] Pool #[id number] * Erwin Garcia MD - 03/13/2023 8:20 AM EDT Hollie Cullen is a 72 year old male here for a Medicare Subsequent Annual Wellness Visit Health Risk Assessment In general, health is: Good Concerns with balance:Several days Concerns with teeth or dentures:Not at all Concerns with sexual function:Not at all Jamul anxious, stressed, angry, irritable, lonely, isolated, or [...] Medicine) Outside specialists seen: Dr. Stark, dermatology, [place]. Holden, optometry, [place]. Medical/Family history review Reviewed and updated problem [...] misuse screening and counseling documented in this encounterMemorial [facility]02-16-2023 Miscellaneous Notes* Telephone Encounter - Diane Lebron Pss - 01/02/2023 1:34 PM EST [facility] Patient has been identified by name and date of : Yes Requested Prescriptions Pending Prescriptions Disp Refills simvastatin (ZOCOR) 40 mg tablet 90 tablet 0 Sig: Take 1 tablet by mouth daily at bedtime. RX INSTRUCTIONS: Patient aware RX will be sent to pharmacy. No need to notify patient. Diane Lebron Pss documented in this encounterMemorial Health [facility]02-06-2023 Miscellaneous Notes* Telephone Encounter - Linda [...] do prior to appointment. documented in this encounterMemorial Health [facility]02-06-2023 Miscellaneous Notes* Telephone Encounter - Iris Jo LPN - 12/23/2022 11:13 AM EST Last OV 03/08/22 Next OV 03/13/23 * Telephone Encounter - Mala Barker - 12/23/2022 9:43 AM EST Please note: dutasteride goes to [facility]; other 2 scripts go to [facility]. * Telephone Encounter - Mala Marion Lucero - 12/23/2022 9:42 AM EST Patient has [...] pharmacy. No need to notify patient. Mala Barker documented in this encounterMemorial Health [facility]02-06-2023 Evaluation note* Diagnosis Hyperlipidemia, unspecified hyperlipidemia type- Primary Impaired fasting glucose Stage 3a chronic kidney disease (HCC) documented in this encounter [facility]05-20-2022 Miscellaneous Notes* Telephone Encounter - Roopa [...] symptoms; ER if severe. documented in this encounterMemorial Health System [facility]05-19-2022 Instructions* Patient Instructions* Madeline Saucedo APRN.CNP - 04/04/2022 10:55 AM EDT covid test ordered You will be notified in 24 -48 hours, results available on [place] Everywhereconne[facility] Home isolation until covid results are back [...] breath, inability to swallow. documented in this encounterMemorial Health System [facility]05-19-2022 History of Present illness Narrative* Madeline Saucedo APRN.CNP - 04/04/2022 10:51 AM EDT Subjective The history is provided by the patient. No rewinder was used. HPI Hollie Cullen is a [...] a cyst on the R CT Abd 1108: Cystic structure on R [...] have confirmed and edited as necessary, the [facility] Review of Systems Constitutional: Negative for [...] in 24-48 hours with results, available on RidePalconne[facility]ert Continue prescribed medications Diagnosis and treatment plan were discussed and questions were answered to the patient's satisfaction. Pt acknowledged understanding of concepts and follow up plan. Specific signs and symptoms that would indicate the need for higher level of care were discussed indetail warranting prompt ER evaluation. Madeline Saucedo APRN.GEOTECHNICAL FIELD TECHNICIAN documented in this encounterMemorial Health [facility]04-22-2022 History of Present illness Narrative* Khadijah Older, REGULATION SUPERVISOR.GEOTECHNICAL FIELD TECHNICIAN - 03/08/2022 2:03 PM EDT CC: Patient [...] WHEN PFRMD 08/19/2018 Colonoscopy LAPAROSCOPY, ENTEROLYSIS 01/25/14 [facility] OPTX ANKLE DISLOCATION W/REPAIR/INT/XTRNL FIXJ Right 2012 [...] Patient agreeable to treatment plan. Khadijah Cramer APRN.YONIS documented in this encounterMemorial Health [facility]11-18-2008 History of Past illness Narrative* Problem [...] of this encounter (statuses as of 03/08/2022) [facility] History of Past illness Narrative* Problem [...] of this encounter (statuses as of 04/04/2022) [facility] History of Past illness Narrative* Problem [...] of this encounter (statuses as of 04/05/2022) [facility] History of Past illness Narrative* Problem [...] of this encounter (statuses as of 12/23/2022) [facility] History of Past illness Narrative* Problem [...] of this encounter (statuses as of 12/23/2022) [facility] History of Past illness Narrative* Problem [...] of this encounter (statuses as of 01/03/2023) [facility] History of Past illness Narrative* Problem [...] of this encounter (statuses as of 03/13/2023) [facility] History of Past illness Narrative* Problem [...] of this encounter (statuses as of 05/29/2023) [facility] History of Past illness Narrative* Problem [...] of this encounter (statuses as of 06/01/2023) [facility] History of Past illness Narrative* Problem [...] of this encounter (statuses as of 06/03/2023) [facility] of Past illness Narrative* Problem [...] of this encounter (statuses as of 06/13/2023) [facility] of Past illness Narrative* Problem [...] of this encounter (statuses as of 07/25/2023) [facility] of Past illness Narrative* Problem [...] of this encounter (statuses as of 12/23/2023) [facility] of Past illness Narrative* Problem [...] of this encounter (statuses as of 01/13/2024) [facility] History of Past illness Narrative* Problem [...] of this encounter (statuses as of 01/14/2024) [facility] HospitalConsult note Author Elana [facility] Note Date/Time January 31, 2025 5:1 7pm [facility] Medical Records Department [address] [place] [address] Consultation - Surgical 01/31/25 1647 MR#: [id number] Acct: [id number] Name: HOLLIE CULLEN Rep #:[id number] : 1950 74 From: Elana Richmond MD [...] Deferred to urology. Elana Richmond M.D. Pager: [phone] [facility] [address] [place] [address], [facility], [address] [place] [address] Office: [phone] HPI Consult Data Date of Consult: 01/31/25 [...] there was nothing to do atthat time. [facility] Medical History (Updated 01/31/25 @ 17:16 by [...] 70.8 H, Lymph % (Auto) 16.0 L, [place] % (Auto) 10.8 H, Eos % (Auto) [...] Clarity Cloudy, Urine pH 6.0, Ur Specific [place] 1.015, Urine Protein 15 H, Urine [...] side. Diffuse bladder wall thickening. Reading Location: [facility] Abdomen Ultrasound 01/31/25 13:15 IMPRESSION: Sludge and gallstones seen within the gallbladder lumen with evidence of gallbladder wall thickening and pericholecystic fluid. Acute cholecystitis should be ruled out. Abnormal appearance of the right kidney as described. Fatty infiltration of the liver. Hepatomegaly. Reading Location: [facility] Charges/Coding Multi Select Codes Visit Charges Office Visit/Consults: 78988 OP Consult L4 01/31/25 1717 <Electronically signed by Elana Richmond MD> Cosigner Signature (if applicable): CC: Dr. Erwin Garcia MD~ Signed [facility] Work Phone: Discharge summary Author Nacho Garza [facility] Note Date/Time April 27, 2025 11:3 6am [facility] Medical Records Department [address] [place] [address] Discharge Summary 04/27/25 1133 MR#: [id number] Acct: [id number] Name: HOLLIE CULLEN Rep #:[id number] : 1950 74 From: Nacho Garza DO PCP: Dr. Erwin Garcia MD Status:A DM IN Location: [facility] [id number] Providers Date of Admission: 04/26/25 Primary Care Physician: Dr. Erwin Garcia MD Consultations 04/26/25 00:26 Consult: Gastroenterology Routine Consulting Provider: [facility] Reason for Consult: Gallstone pancreatitis EMERGENT Consult: Yes Notified: Yes Date Notified: 04/26/25 Time Notified: 00:08 Method of Notification: ED Physician Initiated Consult: General Surgery Routine Consulting Provider: Rad Arnold Reason for Consult: Gallbladder disease EMERGENT Consult: Yes Notified: Yes Date Notified: 04/26/25 Time Notified: 00:08 Method of Notification: ED Physician Initiated Reason For Visit: GALLSTONES PANCREATITIS Diagnosis Discharge Diagnosis (1) Pancreatitis: Status: Acute Code(s): K85.90 - Acute pancreatitis without necrosis or infection, unspecified Plan: concerning for gallstone induced pancreatitis. ERCP on 04/26: choledocholithiasis w complete removal, biliary sphincterotomy andbaloon extraction. Biliary sphincterotomy. One stent placed. General surgery on consult, no acute surgical plans. Follow up as outpt for cholecystectomy. Plan BPH: continue tamsulosin GERD: continue PPI. VTE prophylaxis: LMWH. Medications at Discharge Home Medications multivitamin with folic acid 400 mcg tablet (Thera) 1 tab PO DAILY 06/12/15 dutasteride 0.5 mg capsule 0.5 mg PO DAILY 01/31/25 montelukast 10 mg tablet 10 mg PO QHS allergies 01/31/25 simvastatin 40 mg tablet 40 mg PO QHS 01/31/25 omeprazole 40 mg capsule,delayed release 40 mg PO QDAY #30 caps 02/08/25 oxycodone 5 mg tablet 5 mg PO Q6H PRN pain 7 days #14 tabs 02/25/25 tamsulosin 0.4 mg capsule (Flomax) 0.4 mg PO DAILY #30 caps 02/27/25 Hospital Course Operations None Procedures - (ERCP) Summary of Care Provided Hospital Course: Patient presents with gallstone pancreatitis. Patient underwent ERCP on the that showed the biliary system was moderate dilated with a stone causing the obstruction. Choledocholithiasis was found with complete removal accomplished with biliary sphincterotomy and balloon extraction. Patient tolerated procedure well. Patient did have transaminitis and hyperbilirubinemiarelated with this. Those are both improved. Patient will follow-up with general surgery to have a cholecystectomy. Timing of which will be determined by surgery. Patient recent nephrectomy in the past. Weight / BMI Weight Weight: 103.8 kg Body Mass Index (BMI) 32.8 ABG / Lab / Microbiology Data 04/26/25 05:45 04/27/25 05:15 Laboratory: Laboratory Results - last 24 hr 04/27/25 05:15: Sodium 137, Potassium 3.9, Chloride 108, Carbon Dioxide 21.8, Anion Gap 8, BUN 15, Creatinine 1.26 H, Estim Creat Clear Calc 63.95, Est GFR (MDRD) Non-Af 61, BUN/Creatinine Ratio 11.6, Glucose 117 H, Calcium 7.7, Total Bilirubin 1.21, AST 111 H, ALT 333 H, Alkaline Phosphatase 147 H, Total Protein 5.4 L, Albumin 3.0 L, Globulin 2.3, Albumin/Globulin Ratio 1.3 Radiography Diagnostic Testing: Radiology Impression Endo Retro Cholangiopancreatogram 04/26/25 17:00 IMPRESSION: As above. Reading Location: [place] [address] D/C Instructions Discharge Diet: No restrictions DC O2, CPAP, BIPAP Needs Home O2 Discharge instructions: No Meaningful Use Info Meaningful Use Meaningful Use Diagnoses (Choose all that apply): None applicable Ischemic Stroke Statin Dosing Therapy Reference: STATIN DOSE THERAPY REFERENCE: * Patients > 75 years receive moderate or high dose statin therapy. * Patients 75 years or YOUNGER should receive HIGH intensity statin dose unless contraindicated. You will be required to document reason for non-treatment if statin daily dose does not meet guidelines. HIGH DOSE STATIN THERAPY DAILY Atorvastatin > than or = to 40 mg Rosuvastatin > than or = to 20 mg Amlodipine + Atorvastatin > than or = to 2.5/40 mg Ezetimibe + Simvastatin 10/80 mg Simvastatin 80mg Discharge Plan Admission Admit Date/Time: 04/26/25 00:06 Primary Reason for Your Visit: Gallstone pancreatitis Attending Provider: Nacho Garza Primary Care Provider: Erwin Garcia Consulting Providers: Rad Arnold; Jose Mora Instructions Additional Instructions / Restrictions: You had a stone in your bile duct causing pancreatitis and inflammation of your liver. Dr. Llanos was able to review that with the ERCP. You will need to have your gallbladder removed and you will need to follow-up with Dr. Arnold in the near future to have that arranged. If you have any worsening abdominal pain, notify your physician or return to the emergency room. Discharge Orders/Prescriptions Prescriptions: Continued omeprazole 40 mg capsule,delayed release(DR/EC) 40 mg PO QDAY Qty: 30 3RF Rx Instructions: swallow whole; do not crush, chew, dissolve, cut, break multivitamin with folic acid [Thera] 1 TABLET tablet 1 tab PO DAILY simvastatin 40 mg tablet 40 mg PO QHS montelukast 10 mg tablet 10 mg PO QHS dutasteride 0.5 mg capsule 0.5 mg PO DAILY oxycodone 5 mg tablet 5 mg PO Q6H PRN (Reason: pain) 7 Days Qty: 14 0RF tamsulosin [Flomax] 0.4 mg capsule 0.4 mg PO DAILY Qty: 30 1RF Referrals / Follow Up: Rad Arnold MD [Med Staff - Active Staff] - Within 2 Weeks Erwin Garcia MD [Primary Care Provider] - Within 2 Weeks Disposition Disposition (needs filled in before D/C Order can be placed): Home, Self Care Charges/Coding Visit Charges Inpatient E&M: 68904 Disch Hosp 04/27/25 1136 <Electronically signed by Nacho Garza DO> Cosigner Signature (if applicable): CC: Dr. Nacho Garza DO; Dr. Erwin Garcia MD~ Signed [facility] Work Phone: Evaluation note* Diagnosis BPH with obstruction/lower urinary tract symptoms- Primary Hypertrophy of prostate with urinary obstruction and other lower urinary tract symptoms (LUTS) Stage 3a chronic kidney disease (HCC) Hyperlipidemia, unspecified hyperlipidemia type Impaired fasting glucose Obesity, Class I, BMI 30-34.9 Obesity, unspecified documented in this encounter [facility] note* Diagnosis Exposure to COVID-19 virus- Primary Upper respiratory symptom Other symptoms involving respiratory system and chest [facility]* Diagnosis BPH with obstruction/lower urinary tract symptoms Hypertrophy of prostate with urinary obstruction and other lower urinary tract symptoms (LUTS) Chronic rhinitis Hyperlipidemia, unspecified hyperlipidemia type documented in this encounter [facility] note* Diagnosis Hyperlipidemia, unspecified hyperlipidemia type documented in this encounter [facility] note* Diagnosis Medicare annual wellness visit, subsequent- Primary Routine general medical examination at a health care facility Hyperlipidemia, unspecified hyperlipidemia type Tobacco use disorder Stage 3a chronic kidney disease (HCC) Impaired fasting glucose BPH with obstruction/lower urinary tract symptoms Hypertrophy of prostate with urinary obstruction and other lower urinary tract symptoms (LUTS) Special screening for malignant neoplasms, colon documented in this encounter [facility] note* Diagnosis Encounter for screening for lung cancer- Primary Tobacco use current [facility]* Diagnosis Hydroureteronephrosis- Primary Hydronephrosis Stage 3a chronic kidney disease (HCC) documented in this encounter [facility] note* Diagnosis Encounter for screening for lung cancer- Primary Tobacco use current documented in this encounter [facility] note* Diagnosis Chronic rhinitis documented in this encounter [facility] noteNo assessment information availableWPeoples Hospital Work Phone: Evaluation note* Diagnosis BPH with obstruction/lower urinary tract symptoms Hypertrophy of prostate with urinary obstruction and other lower urinary tract symptoms (LUTS) Chronic rhinitis documented in this encounter [facility] note* Diagnosis Injury of right knee, initial encounter- Primary documented in this encounter [facility] Work Phone: evaluation note* Diagnosis Injury of right knee, initial encounter documented in this encounter [facility] Work Phone: evaluation note* Diagnosis Acute pain of right knee- Primary documented in this encounter [facility] note* Diagnosis Acute pain of right knee- Primary documented in this encounter [facility] note* Diagnosis Stage 3a chronic kidney disease (HCC)- Primary Hyperlipidemia, unspecified hyperlipidemia type Impaired fasting glucose documented in this encounter [facility] note* Diagnosis Medicare annual wellness visit, subsequent- Primary Routine general medical examination at a health care facility Hyperlipidemia, unspecified hyperlipidemia type Stage 3a chronic kidney disease (HCC) Impaired fasting glucose Benign neoplasm of colon, unspecified part of colon Need for COVID-19 vaccine documented in this encounter [facility] note* Diagnosis Multiple lung nodules- Primary Other nonspecific abnormal finding of lung field Encounter for screening for lung cancer Tobacco use current [facility]* Diagnosis Encounter for screening for lung cancer Tobacco use current [facility]* Diagnosis Chronic rhinitis [facility]* Diagnosis BPH with obstruction/lower urinary tract symptoms Hypertrophy of prostate with urinary obstruction and other lower urinary tract symptoms (LUTS) documented [facility]* Diagnosis Hyperlipidemia, unspecified hyperlipidemia type [facility]* Diagnosis Medicare annual wellness visit, subsequent- Primary Routine general medical examination at a [facility] care facility Encounter for screening examination for [...] cholecystitis or obstruction [facility]* Diagnosis Calculus of gallbladder without cholecystitis without obstruction- Primary Biliary colic Calculus of gallbladder without mention of cholecystitis or obstruction documented in this encounter [facility] Work Phone: Evaluation note* Diagnosis Calculus of gallbladder without cholecystitis without obstruction- Primary Calculus of gallbladder without mention of cholecystitis or obstruction [facility] Jose Mora [facility] Note Date/Time April 26, 2025 12:0 6am [facility] Medical Records Department [address] [place] [id number] History & Physical Exam 04/25/25 0365 MR#: [id number] Acct: [id number] Name: HOLLIE CULLEN Rep #:[id number] : 1950 74 From: Jose Mora MD PCP: Dr. Erwin Garcia MD Status:R EG ER Location: ED HPI - General General Date of Service: 04/25/25 Chief Complaint: Acute abdominal pain HPI Narrative HOLLIE CULLEN, is a 74 M who presents to the emergency room with chief complaint of abdominal pain. Patient had similar episode of abdominal pain was seen at a freestanding urgent care and had a CT scan done which showed cholelithiasis and he was discharged home. The pain is subsequently become moresevere and he came to the emergency room for evaluation. He was previously scheduled to see his surgeon on Friday to plan for cholecystectomy but was unable to wait for that appointment due to pain at this time. Ultrasound done today shows gallstone, lipase was greater than 3000, total bilirubin was elevated 5.3, AST 486, ALT 835, alk phos 228 CBC was within normal limits. 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 Patient also has a history ofalcohol use and drinks 2-3 beers a day but denies having had withdrawal symptomsin the past and has gone periods of time without drinking. Patient will be admitted to general medical floor, made n.p.o. with IV fluids and consult to for ERCP and Dr. Arnold for surgical consult. [facility] Medical History Wears glasses Wears dentures Wears [...] #30 cap s 02/08/25 Unknown Rx release oxycodone 5 mg tablet 5 mg PO Q6H PRN pain 7 days #14 02/25/25 Unknown Rx tabs tamsulosin 0.4 mg capsule (Flomax) 0.4 mg PO DAILY #30 caps 02/27/25 Unknown Rx Allergy/AdvReac Type Severity Reaction Status Date / Time No Known Allergies Allergy Verified 04/25/25 21:09 Family History Mother Diabetes Brother Diabetes Colon cancer Surgical History Hx of laparoscopy Status post appendectomy Social History Smoking Status: Light Smoker (<10/day) quit status: not considering quitting ROS Constitutional Constitutional: Denies chills or fever(s) Eyes Eyes: Denies blurry vision ENT HEENT: Denies abnormal hearing Cardiovascular Cardiovascular: Denies chest pain Respiratory/Chest Respiratory/Chest: Denies shortness of breath at rest Gastrointestinal Gastrointestinal: Reports abdominal pain and nausea Genitourinary Genitourinary: Denies dysuria Musculoskeletal Musculoskeletal: Denies back pain Integumentary Integumentary: Reports jaundice Neurologic Neurologic: Denies abnormal gait Psychiatric Psychiatric: Denies anxiety Vital Signs Vital Signs Vital Signs: 04/25/25 21:06 04/25/25 23:05 04/25/25 23:48 Temperature 97.5 F L 98.6 F Temperature Source Oral Pulse Rate 73 65 65 Respiratory Rate 16 18 Blood Pressure 119/67 119/62 Blood Pressure Mean 84 81 Pulse Ox 91 92 Oxygen Delivery Method Room Air Weight Weight: 226 lb 8 oz Body Mass Index (BMI) 32.5 Physical Exam Const oriented x3 General Appearance: cooperative and well developed HEENT normocephalic and head/scalp atraumatic Eyes PERRL Neck no lymphadenopathy Lymph Lymphatic: no lymphadenopathy noted Resp normal respiratory effort, normal air movement and clear to auscultation bilaterally Cardio regular rate, regular rhythm, S1 normal heart sound and S2 normal heart sound GI Inspection: abdominal distention Palpation: tender epigastric and RUQ Extremity normal capillary refill Skin General Skin Exam: no breakdown Neuro no focal motor deficits and no sensory deficits noted Psych thought process normal, cooperative and affect normal Results Lab / Micro Data 04/25/25 21:16 04/25/25 21:16 Labs: Laboratory Results - last 24 hr 04/25/25 21:16: WBC 10.9, RBC 5.66, Hgb 15.8, Hct 47.8, MCV 84.5, MCH 27.9, MCHC33.1, RDW Std Deviation 42.5, RDW Coeff of Mildred 13.9, Plt Count 197, MPV 11.1, Immature Gran % (Auto) 0.400, Neut % (Auto) 76.3 H, Lymph % (Auto) 10.5 L, Webster % (Auto) 11.7 H, Eos % (Auto) 0.7, Baso % (Auto) 0.4, Absolute Neuts (auto) 8.3 H, Absolute Lymphs (auto) 1.15, Nucleated RBC % 0, Sodium 140, Potassium 3.9, Chloride 104, Carbon Dioxide 22.9, Anion Gap 13, BUN 13, Creatinine 1.49 H, Estim Creat Clear Calc 53.81, Est GFR (MDRD) Non-Af 50 L, BUN/Creatinine Ratio 8.7 L, Glucose 162 H, Calcium 9.7, Total Bilirubin 5.33 H, AST 486 H, ALT 835 H,Alkaline Phosphatase 228 H, Total Protein 7.4, Albumin 4.3, Globulin 3.1, Albumin/Globulin Ratio 1.4, Lipase > 3000 H Imaging Radiology Impression Gallbladder Ultrasound 04/25/25 22:10 IMPRESSION: Cholelithiasis without evidence of acute cholecystitis. Reading Location: [facility] Assessment & Plan Assessment/Plan (1) Jaundice: (2) Cholelithiasis: (3) Pancreatitis: (4) Transaminitis: PLAN: Plan 1 gallstone pancreatitis?admit patient to general medical floor, IV morphine 4 mg every 2 hours as needed for pain, will add Zofran as needed for nausea symptoms as well. Consult acquisition advisor Dr. Villatoro for possible ERCP and to general surgery for consult. Patient will be n.p.o. with IV normal saline at150 cc/h, repeat CBC CMP and lipase in the a.m. 2. DVT prophylaxis?low molecular weight heparin 3. Smoking cessation encouraged 4. Alcohol use?patient denies withdrawal symptoms in the past we will monitor for signs of withdrawal Charges/Coding Visit Charges Inpatient E&M: 22434 Init Hosp L2 04/26/25 0006 <Electronically signed by Jose Mora MD> Cosigner Signature (if applicable): CC: Dr. Jose Mora MD; Dr. Erwin Garcia MD~ Signed [facility] Work Phone: Reason for referral (narrative)* Outpatient Procedure (Routine) - Pending Review Specialty Diagnoses / Procedures Referred By Daniel t Referred To Contact [facility] Diagnoses Special screening for malignant neoplasms, colon Procedures COLONOSCOPY SCREENING COLONOSCOPY FLX DX W/COLLJ SPEC WHEN PFRMD Erwin Garcia MD [address] [place] [address] [facility] [address] [place] [address] Referral ID Status Reason Start Date Expiration Date Visits Requested Visits Authorized [id number] Pending Review Auto-Generat ed Referral 03/13/2023 03/13/2024 1 1 * Diagnostic Procedure Only (Routine) - Authorized Specialty Diagnoses / Procedures Referred By Daniel dooley Referred To Contact [facility] Diagnoses Stage 3a chronic kidney disease (HCC) Procedures US KIDNEY/BLADDER US RETROPERITONEAL REAL TIME W/IMAGE COMPLETE Erwin Garcia MD [address] [place] [address] Us [facility] Referral ID Status Reason Start Date Expiration Date Visits Requested Visits Authorized [id number] Authorized Auto-Generat ed Referral 03/13/2023 04/11/2024 1 1 [facility] for referral (narrative)No reason for referral information availableWPeoples Hospital Work Phone: Advance Directives Documents on File Type Date Recorded Patient Finish Off Operator Expl anation Advance Directive(s) 08/19/2018 7:57 AM Advance Directive Response Recorded Date/ Time Living Will No June 12, 2015 11:32am Power of Curator Of Education No June 12 11:32am Advance Directive Response Recorded Date/ Time Living Will No January 31, 2025 10:30am Power of Curator Of Education No January 31 10:30am Advance Directive Response Recorded Date/ Time Living Will No January 31, 2025 10:30am Do you have a Healthcare Power of Curator Of Education? No January 31, 2025 10:30am Living Will No February 25, 2025 11:29am Do you have a Healthcare Power of Curator Of Education? No February 25, 2025 11:29am Advance Directive Response Recorded Date/ Time Do you have a Healthcare Power of Curator Of Education? No April 25, 2025 9:35pm Living Will No January 31, 2025 10:30am Do you have a Healthcare Power of Curator Of Education? No January 31, 2025 10:30am Living Will No February 25, 2025 11:29am Do you have a Healthcare Power of Curator Of Education? No February 25, 2025 11:29am Advance Directive Response Recorded Date/ Time Do you have a Healthcare Power of Curator Of Education? No April 26, 2025 12:21am Living Will No January 31, 2025 10:30am Do you have a Healthcare Power of Curator Of Education? No January 31, 2025 10:30am Living Will No February 25, 2025 11:29am Do you have a Healthcare Power of Curator Of Education? No February 25, 2025 11:29am Health Concerns Infection Onset Date Last Indicated Resolved Time COVID-19 Rule-Out 04/04/2022 04/04/2022 Infection Onset Date Last Indicated Resolved Time COVID-19 Confirmed 04/04/2022 04/04/2022 Summary Purpose Family History Relationship Condition Age at Onset Recorded Date/T conner mother Diabetes mellitus Unknown brother Diabetes mellitus Unknown Malignant neoplasm of colon Unknown Reason for Referral Specialty Diagnoses / Procedures Referred By Daniel dooley Referred To Contact CT IMAGING Diagnoses Encounter for screening for lung cancer Tobacco use current Procedures CT LUNG SCREEN WO IVCON COMPUTED TOMOGRAPHY THORAX LW DOSE LNG CA SCR Hernandez- Isael Lebron, REGULATION SUPERVISOR.GEOTECHNICAL FIELD TECHNICIAN [address] [place] [address] Ct Imaging Referral ID Status Reason Start Date Expiration Date Visits Requested Visits Authorized [id number] Authorized Auto-Generat ed Referral 05/28/2023 06/26/2024 1 1 Specialty Diagnoses / Procedures Referred By Daniel dooley Referred To Contact Urology Diagnoses Hydroureteronephrosis Stage 3a chronic kidney disease (HCC) Procedures CONSULT TO UROLOGY OFFICE/OUTPATIENT [facility] HIGH MDM 60-74 MINUTES Erwin Garcia MD [address] [place] [address] Referral ID Status Reason Start Date Expiration Date Visits Requested Visits Authorized [id number] Authorized PCP Requested Referral 05/31/2023 05/30/2024 1 1 Referral ID Status Reason Start Date Expiration Date Visits Requested Visits Authorized [id number] Pending Review Auto-Generat ed Referral 06/13/2024 07/12/2024 1 1 Specialty Diagnoses / Procedures Referred By Contac t Referred To Contact Radiology Diagnoses Injury of right knee, initial encounter Procedures XR knee right 3 views Trell Goldman, REGULATION SUPERVISOR-GEOTECHNICAL FIELD TECHNICIAN [address] [place] [address] Referral ID Status Reason Start Date Expiration Date Visits Requested Visits Authorized [id number] Authorized Perform Procedure 01/01/2024 12/31/2024 1 1 Specialty Diagnoses / Procedures Referred By Contac t Referred To Contact Orthopedics Diagnoses Acute pain of right knee Procedures CONSULT TO ORTHOPAEDICS OFFICE/OUTPATIENT [facility] 60 MINUTES Elisha Velásquez, REGULATION SUPERVISOR.FITTER/WELDER [address] [place] [address] Referral ID Status Reason Start Date Expiration Date Visits Requested Visits Authorized [id number] Authorized PCP Requested Referral 01/13/2024 01/12/2025 1 1 Specialty Diagnoses / Procedures Referred By Contac t Referred To Contact Diagnoses Acute pain of right knee Elisha Velásquez, REGULATION SUPERVISOR.FITTER/WELDER [address] [place] [address] Referral ID Status Reason Start Date Expiration Date Visits Re quested Visits Authorized [id number] Closed 1 1 Specialty Diagnoses / Procedures Referred By Contac t Referred To Contact CT IMAGING Diagnoses Encounter for screening for lung cancer Tobacco use current Procedures CT LUNG SCREEN WO IVCON COMPUTED TOMOGRAPHY THORAX LW DOSE LNG CA SCR Hernandez- Isael Lebron, REGULATION SUPERVISOR.GEOTECHNICAL FIELD TECHNICIAN [address] [place] [address] [place] [address] Referral ID Status Reason Start Date Expiration Date Visits Requested Visits Authorized [id number] Authorized Auto-Generat ed Referral 06/14/2024 07/14/2025 1 [...] Kidney atrophy February 14, 2025 1:3 3pm Chief Complaint Admit Date ABD PAIN January 31, 2025 10: 03am ABD PAIN January 31, 2025 4:4 7pm ED F/U - February 07, 2025 9:2 5am 1 WK GALLBLADDER CHECK February 14, 2025 1:33pm PREOP February 15, 2025 8:56 am Laparoscopic, Robotic, Nephrectomy, Uret erectomy February 25, 2025 9:52am abdom April 25, 2025 11:55 pm PANCREATITIS April 26, 2025 12:1 0am Reason for Visit Admit Date Bloating symptom February 07, 2025 9:2 5am Gallstones February 07, 2025 9:2 5am Kidney atrophy February 07, 2025 9:2 5am Bloating symptom February 14, 2025 1:3 3pm Gallstones February 14, 2025 1:3 3pm Kidney atrophy February 14, 2025 1:3 3pm Cholelithiasis April 26, 2025 12:1 0am Jaundice April 26, 2025 12:1 0am Pancreatitis April 26, 2025 12:1 0am Transaminitis April 26, 2025 12:1 0am Chief Complaint Admit Date ABD PAIN January 31, 2025 10: 03am ABD PAIN January 31, 2025 4:4 7pm ED F/U - February 07, 2025 9:2 5am 1 WK GALLBLADDER CHECK February 14, 2025 1:33pm PREOP February 15, 2025 8:56 am Laparoscopic, Robotic, Nephrectomy, Uret erectomy February 25, 2025 9:52am abdom April 25, 2025 11:55 pm GALLSTONES PANCREATITIS April 26, 2025 12:06am GALLSTONES PANCREATITIS April 26, 2025 7:07am GALLSTONES PANCREATITIS April 26, 2025 7:35am GALLSTONES PANCREATITIS April 26, 2025 1:50pm GALLSTONES PANCREATITIS April 27, 2025 7:20am GALLSTONES PANCREATITIS April 27, 2025 8:02am Reason for Visit Admit Date Bloating symptom February 07, 2025 9:2 5am Gallstones February 07, 2025 9:2 5am Kidney atrophy February 07, 2025 9:2 5am Bloating symptom February 14, 2025 1:3 3pm Gallstones February 14, 2025 1:3 3pm Kidney atrophy February 14, 2025 1:3 3pm Cholelithiasis April 26, 2025 12:0 6am Jaundice April 26, 2025 12:0 6am Pancreatitis April 26, 2025 12:0 6am Transaminitis April 26, 2025 12:0 6am Additional Source Comments Source Comments (unrecognize d section and content) In the event this informatio n is protected by the Federal Confidentiality of Alcohol and Drug Abuse Patient Records regulations: The Federal rules restrict any use of the information to criminally investigate or prosecute any alcohol or drug abuse patient.[facility] Hospital[facility] the event this information is protected by the Federal Confidentiality of Alcohol and Drug Abuse Patient Records regulations: The Federal rules restrict any use of the information to criminally investigate or prosecute any alcohol or drug abuse patient.[facility] HospitalIn the event this information is protected by the Federal Confidentiality of Alcohol and Drug Abuse Patient Records regulations: The Federal rules restrict any use of the information to criminally investigate or prosecute any alcohol or drug abuse patient.[facility] HospitalIn the event this information is protected by the Federal Confidentiality of Alcohol and Drug Abuse Patient Records regulations: The Federal rules restrict any use of the information to criminally investigate or prosecute any alcohol or drug abuse patient.[facility] HospitalIn the event this information is protected by the Federal Confidentiality of Alcohol and Drug Abuse Patient Records regulations: The Federal rules restrict any use of the information to criminally investigate or prosecute any alcohol or drug abuse patient.[facility] HospitalIn the event this information is protected by the Federal Confidentiality of Alcohol and Drug Abuse Patient Records regulations: The Federal rules restrict any use of the information to criminally investigate or prosecute any alcohol or drug abuse patient.[facility] HospitalIn the event this information is protected by the Federal Confidentiality of Alcohol and Drug Abuse Patient Records regulations: The Federal rules restrict any use of the information to criminally investigate or prosecute any alcohol or drug abuse patient.[facility] HospitalIn the event this information is protected by the Federal Confidentiality of Alcohol and Drug Abuse Patient Records regulations: The Federal rules restrict any use of the information to criminally investigate or prosecute any alcohol or drug abuse patient.[facility] HospitalIn the event this information is protected by the Federal Confidentiality of Alcohol and Drug Abuse Patient Records regulations: The Federal rules restrict any use of the information to criminally investigate or prosecute any alcohol or drug abuse patient.[facility] HospitalIn the event this information is protected by the Federal Confidentiality of Alcohol and Drug Abuse Patient Records regulations: The Federal rules restrict any use of the information to criminally investigate or prosecute any alcohol or drug abuse patient.[facility] HospitalIn the event this information is protected by the Federal Confidentiality of Alcohol and Drug Abuse Patient Records regulations: The Federal rules restrict any use of the information to criminally investigate or prosecute any alcohol or drug abuse patient.[facility] HospitalIn the event this information is protected by the Federal Confidentiality of Alcohol and Drug Abuse Patient Records regulations: The Federal rules restrict any use of the information to criminally investigate or prosecute any alcohol or drug abuse patient.[facility] HospitalIn the event this information is protected by the Federal Confidentiality of Alcohol and Drug Abuse Patient Records regulations: The Federal rules restrict any use of the information to criminally investigate or prosecute any alcohol or drug abuse patient.[facility] HospitalIn the event this information is protected by the Federal Confidentiality of Alcohol and Drug Abuse Patient Records regulations: The Federal rules restrict any use of the information to criminally investigate or prosecute any alcohol or drug abuse patient.[facility] HospitalIn the event this information is protected by the Federal Confidentiality of Alcohol and Drug Abuse Patient Records regulations: The Federal rules restrict any use of the information to criminally investigate or prosecute any alcohol or drug abuse patient.[facility] HospitalIn the event this information is protected by the Federal Confidentiality of Alcohol and Drug Abuse Patient Records regulations: The Federal rules restrict any use of the information to criminally investigate or prosecute any alcohol or drug abuse patient.[facility] HospitalIn the event this information is protected by the Federal Confidentiality of Alcohol and Drug Abuse Patient Records regulations: The Federal rules restrict any use of the information to criminally investigate or prosecute any alcohol or drug abuse patient.[facility] HospitalIn the event this information is protected by the Federal Confidentiality of Alcohol and Drug Abuse Patient Records regulations: The Federal rules restrict any use of the information to criminally investigate or prosecute any alcohol or drug abuse patient.[facility] HospitalIn the event this information is protected by the Federal Confidentiality of Alcohol and Drug Abuse Patient Records regulations: The Federal rules restrict any use of the information to criminally investigate or prosecute any alcohol or drug abuse patient.[facility] HospitalIn the event this information is protected by the Federal Confidentiality of Alcohol and Drug Abuse Patient Records regulations: The Federal rules restrict any use of the information to criminally investigate or prosecute any alcohol or drug abuse patient.[facility] HospitalIn the event this information is protected by the Federal Confidentiality of Alcohol and Drug Abuse Patient Records regulations: The Federal rules restrict any use of the information to criminally investigate or prosecute any alcohol or drug abuse patient.[facility] HospitalIn the event this information is protected by the Federal Confidentiality of Alcohol and Drug Abuse Patient Records regulations: The Federal rules restrict any use of the information to criminally investigate or prosecute any alcohol or drug abuse patient.[facility] HospitalIn the event this information is protected by the Federal Confidentiality of Alcohol and Drug Abuse Patient Records regulations: The Federal rules restrict any use of the information to criminally investigate or prosecute any alcohol or drug abuse patient.[facility] HospitalIn the event this information is protected by the Federal Confidentiality of Alcohol and Drug Abuse Patient Records regulations: The Federal rules restrict any use of the information to criminally investigate or prosecute any alcohol or drug abuse patient.[facility] HospitalIn the event this information is protected by the Federal Confidentiality of Alcohol and Drug Abuse Patient Records regulations: The Federal rules restrict any use of the information to criminally investigate or prosecute any alcohol or drug abuse patient.[facility] HospitalIn the event this information is protected by the Federal Confidentiality of Alcohol and Drug Abuse Patient Records regulations: The Federal rules restrict any use of the information to criminally investigate or prosecute any alcohol or drug abuse patient.[facility] HospitalIn the event this information is protected by the Federal Confidentiality of Alcohol and Drug Abuse Patient Records regulations: The Federal rules restrict any use of the information to criminally investigate or prosecute any alcohol or drug abuse patient.[facility] Reason for Visit (unrecogniz ed section [...] issues Specialty Diagnoses / Procedures Referred By Daniel t Referred To Contact Radiology Diagnoses Injury of right knee, initial encounter Procedures XR knee right 3 views Trell Goldman, REGULATION SUPERVISOR-GEOTECHNICAL FIELD TECHNICIAN [address] [place] [address] Referral ID Status Reason Start Date Expiration Date Visits Requested Visits Authorized [id number] Authorized Perform Procedure 01/01/2024 12/31/2024 1 1 [...] THORAX LW DOSE LNG CA SCR C- [place], Isael, REGULATION SUPERVISOR.GEOTECHNICAL FIELD TECHNICIAN [address] [place] [id number] [facility] [place] [address] Referral ID Status Reason Start Date Expiration Date V isits Requested Visits Authorized [id number] Closed Auto-Generate d Referral 06/13/2024 07/12/2024 [address] Specialty Diagnoses / Procedures Referred By Daniel t Referred To Contact CT IMAGING Diagnoses Encounter for screening for lung cancer Tobacco use current Procedures CT LUNG SCREEN WO IVCON COMPUTED TOMOGRAPHY THORAX LW DOSE LNG CA SCR C- [place], Isael, REGULATION SUPERVISOR.GEOTECHNICAL FIELD TECHNICIAN [address] [place] [id number] Imaging [facility] Reason Comments Patient Question Reason Onset Date Comments Refill Request 07/08/2024 Reason Onset Date Comments Refill Request 10/25/2024 Reason Comments Abdominal Pain Reason Onset Date Comments Refill Request 03/02/2025 Reason Comments Medicare Wellness Exam Reason Comments Chest Pain Midsternal CP starte d approx 15-20mins [employer], c/o SOB. While watching tv, took 1 nitro at home with no relief Reason Comments ER F/U Care Teams (unrecognized sec tion and content) Log Peeler Relationship Specialty Start Date End Date Erwin Garcia MD [address] [place], [place] [address] PCP - General Internal Medicine 07/18/16 Log Peeler Relationship Specialty Start Date End Date Erwin Garcia MD [address] [place], [place] [address] PCP - General Internal Medicine 07/18/16 Log Peeler Relationship Specialty Start Date End Date Erwin Garcia MD [address] [place] [address] PCP - General Internal Medicine 07/18/16 Log Peeler Relationship Specialty Start Date End Date Erwin Garcia MD [address] [place] [address] PCP - General Internal Medicine 07/18/16 Log Peeler Relationship Specialty Start Date End Date Erwin Garcia MD [address] [place] [address] PCP - General Internal Medicine 07/18/16 Log Peeler Relationship Specialty Start Date End Date Erwin Garcia MD [address] [place] [address] PCP - General Internal Medicine 07/18/16 Log Peeler Relationship Specialty Start Date End Date Erwin Garcia MD [address] [place] [address] PCP - General Internal Medicine 07/18/16 Log Peeler Relationship Specialty Start Date End Date Erwin Garcia MD [address] [place] [address] PCP - General Internal Medicine 07/18/16 Log Peeler Relationship Specialty Start Date End Date Erwin Garcia MD [address] [place] [address] PCP - General Internal Medicine 07/18/16 Log Peeler Relationship Specialty Start Date End Date Erwin Garcia MD [address] [place] [address] PCP - General Internal Medicine 07/18/16 Log Peeler Relationship Specialty Start Date End Date Erwin Garcia MD [address] [place] [address] PCP - General Internal Medicine 07/18/16 Team Status: Active Member Role Status Dates Dr. Loreto Champagne MD Family Provider Active Dr. Loreto Champagne MD Primary Care Provider Active Team Status: Inactive Member Role Status Dates Dr. Loreto Champagne MD Primary Care Provider Active Milagros Clark Attending Provider, Referring Provide r Active Log Peeler Relationship Specialty Start Date End Date Erwin Garcia MD [address] [place] [address] PCP - General Internal Medicine 07/18/16 Log Peeler Relationship Specialty Start Date End Date Erwin Garcia MD [address] [place] [address] PCP - General Internal Medicine 01/01/24 Log Peeler Relationship Specialty Start Date End Date Erwin Garcia MD [address] [place] [address] PCP - General Internal Medicine 07/18/16 Log Peeler Relationship Specialty Start Date End Date Erwin Garcia MD [address] [place] [address] PCP - General Internal Medicine 07/18/16 Log Peeler Relationship Specialty Start Date End Date Erwin Garcia MD [address] [facility] [place], [place] [id number] [phone] PCP - General Internal Medicine 07/18/16 Log Peeler Relationship Specialty Start Date End Date Erwin Garcia MD [address] [facility] [place], [place] [address] PCP - General Internal Medicine 07/18/16 Log Peeler Relationship Specialty Start Date End Date Erwin Garcia MD [address] [facility] [place] [address] PCP - General Internal Medicine 07/18/16 Log Peeler Relationship Specialty Start Date End Date Erwin Garcia MD [address] [facility] [place] [address] PCP - General Internal Medicine 07/18/16 Log Peeler Relationship Specialty Start Date End Date Erwin Garcia MD [address] [facility] [place] [address] PCP - General Internal Medicine 07/18/16 Log Peeler Relationship Specialty Start Date End Date Erwin Garcia MD [address] [place] [address] PCP - General Internal Medicine 07/18/16 Khadijah Raman, REGULATION SUPERVISOR.GEOTECHNICAL FIELD TECHNICIAN [address] [facility] [place] [address] Tailor Helper Internal Medicine 10/25/24 Log Peeler Relationship Specialty Start Date End Date Erwin Garcia MD [address] [place] [address] PCP - General Internal Medicine 07/18/16 Khadijah Raman, REGULATION SUPERVISOR.GEOTECHNICAL FIELD TECHNICIAN [address] [place] [address] Tailor Helper Internal Medicine 10/25/24 Team Status: Active Member [...] February 25, 2025 End: February 27, 2025 Log Peeler Relationship Specialty Start Date End Date Erwin Garcia MD [address] [place], [place] [address] PCP - General Internal Medicine 07/18/16 Khadijah Raman, REGULATION SUPERVISOR.GEOTECHNICAL FIELD TECHNICIAN [address] [place], [place] [address] Tailor Helper Internal Medicine 10/25/24 Log Peeler Relationship Specialty Start Date End Date Erwin Garcia MD [address] [place], [place] [address] PCP - General Internal Medicine 07/18/16 Khadijah Raman, REGULATION SUPERVISOR.GEOTECHNICAL FIELD TECHNICIAN [address] [place], [place] [id number] [facility] Internal Medicine 10/25/24 Log Peeler Relationship Specialty Start Date End Date Erwin Garcia MD [address] [place], [place] [address] PCP - General Internal Medicine 01/01/24 Team Status: Active Member Role Status Dates Dr. Erwin Garcia MD Primary Care Provider Active Start: April 25, 2025 Dr. Konstantin Bradford DO Emergency Provider Active Start: April 25, 2025 Dr. Jose Mora MD Attending Provider Active Start: April 25, 2025 Team Status: Active Member Role Status Dates Dr. Erwin Garcia MD Primary Care Provider Active Start: April 26, 2025 Dr. Konstantin Bradford DO Emergency Provider Active Start: April 26, 2025 Dr. Jose Mora MD Admit Provider Active Star t: April 26, 2025 Dr. Jose Mora MD Attending Provider Active Start: April 26, 2025 Log Peeler Relationship Specialty Start Date End Date Erwin Garcia MD [address] [place], [place] [address] PCP - General Internal Medicine 07/18/16 Khadijah Raman, REGULATION SUPERVISOR.GEOTECHNICAL FIELD TECHNICIAN [address] [place] [address] Tailor Helper Internal Medicine 10/25/24 Team Status: Inactive Member Role Status Dates Dr. Erwin Garcia MD Primary Care Provider Active Start: April 26, 2025 End: April 27, 2025 Dr. Konstantin Bradford DO Emergency Provider Active Start: April 26, 2025 End: April 27, 2025 Dr. Jose Mora MD Admit Provider Active Star t: April 26, 2025 End: April 27, 2025 Dr. Jose Mora MD Other Provider Active Star t: April 26, 2025 End: April 27, 2025 Dr. Rad Arnold MD Other Provider Active Start: April 26, 2025 End: April 27, 2025 Dr. Nacho Garza DO Attending Provider Active Start: April 26, 2025 End: April 27, 2025 Team Status: Active Member Role Status Dates Dr. Erwin Garcia MD Primary Care Provider Active Start: April 26, 2025 Dr. Konstantin Bradford DO Emergency Provider Active Start: April 26, 2025 Dr. Jose Mora MD Admit Provider Active Star t: April 26, 2025 Dr. Jose Mora MD Other Provider Active Star t: April 26, 2025 Dr. Rad Arnold MD Attending Provider Active Start: April 26, 2025 Dr. Rad Arnold MD Other Provider Active Start: April 26, 2025 Dr. Nacho Garza DO Other Provider Active Star t: April 26, 2025 Team Status: Active Member Role Status Dates Dr. Erwin Garcia MD Primary Care Provider Active Start: April 26, 2025 Dr. Konstantin Bradford DO Emergency Provider Active Start: April 26, 2025 Dr. Jose Mora MD Admit Provider Active Star t: April 26, 2025 Dr. Jose Mora MD Other Provider Active Star t: April 26, 2025 Dr. Rad Arnold MD Other Provider Active Start: April 26, 2025 Dr. Nacho Garza DO Attending Provider Active Start: April 26, 2025 Dr. Nacho Garza DO Other Provider Active Star t: April 26, 2025 Team Status: Active Member Role Status Dates Dr. Erwin Garcia MD Primary Care Provider Active Start: April 26, 2025 Dr. Konstantin Bradford DO Emergency Provider Active Start: April 26, 2025 Dr. Jose Mora MD Admit Provider Active Star t: April 26, 2025 Dr. Jose Mora MD Other Provider Active Star t: April 26, 2025 Dr. Rad Arnold MD Other Provider Active Start: April 26, 2025 Dr. Nacho Garza DO Other Provider Active Star t: April 26, 2025 Dr. Curtis Villatoro DO Attending Provider Active Start: April 26, 2025 Team Status: Active Member Role Status Dates Dr. Erwin Garcia MD Primary Care Provider Active Start: April 27, 2025 Dr. Konstantin Bradford DO Emergency Provider Active Start: April 27, 2025 Dr. Jose Mora MD Admit Provider Active Star t: April 27, 2025 Dr. Jose Mora MD Other Provider Active Star t: April 27, 2025 Dr. Rad Arnold MD Attending Provider Active Start: April 27, 2025 Dr. Rad Arnold MD Other Provider Active Start: April 27, 2025 Dr. Nacho Garza DO Other Provider Active Star t: April 27, 2025 Team Status: Active Member Role Status Dates Dr. Erwin Garcia MD Primary Care Provider Active Start: April 27, 2025 Dr. Konstantin Bradford DO Emergency Provider Active Start: April 27, 2025 Dr. Jose Mora MD Admit Provider Active Star t: April 27, 2025 Dr. Jose Mora MD Other Provider Active Star t: April 27, 2025 Dr. Rad Arnold MD Other Provider Active Start: April 27, 2025 Dr. Nacho Garza DO Attending Provider Active Start: April 27, 2025 Dr. Nacho Garza DO Other Provider Active Star t: April 27, 2025 (unrecognized sect ion and content) No Status Records FoundNo Status Records FoundNo Status Records FoundNo Status Records Found INFORMATION SOURCE (unrecogn ized section and content) DATE CREATED AUTHOR 11/13/2022 [facility] DATE CREATED AUTHOR AUTHOR'S ORGANIZ ATION 04/26/2025 [facility] DATE CREATED AUTHOR AUTHOR'S ORGANIZ ATION 04/27/2025 [facility] DATE CREATED AUTHOR AUTHOR'S ORGANIZ ATION 04/27/2025 [facility] Goals (unrecognized section and content) Goals may be documented in a n alternate sectionGoals may be documented in an alternate section Scheduled Active and Recently Administ ered Medications (unrecognized section and content) Medication Order 04/22/2025 04/23/2025 04/24/2025 aspirin chewable tablet 324 mg (COMPLETED) 324 mg, oral, Once, On 04/23/25 at 2220, For 1 dose 2239 (Given - Provider: Gloria Cardona, AILEEN) prochlorperazine (Compazine) injection 5 mg (COMPLETED) 5 mg, intravenous, Once, On 04/23/25 at 2250, For 1 dose 2255 (Given - Provider: Gloria Cardona, AILEEN) sodium chloride 0.9 % bolus 1,000 mL (COMPLETED) 1,000 mL, intravenous, at 999 mL/hr, Administer over 1 Hours, Once, On 04/23/25 at 2325, For 1 dose 2347 (New Bag - Provider: Gloria Cardona, AILEEN) 0104 (Stopped - Provider: Gloria Cardona RN) PRN Medication Order 04/22/2025 04/23/2025 04/24/2025 [...] BE BASED ON THE PRIMARY CLINICAL RECORDS. [employer] provides no warranty or guarantee of the accuracy or completeness of information in this document.
[2025-04-27] MEDS: Ipratropium/Albuterol Sulfate 3 ML AMPUL.NEB INHALATION (22:31)
--- NOTE | 2025-04-27 23:02 | RAD_ITS ---
PROCEDURE: CHEST PA AND LATERAL 04/27/2025 REASON FOR EXAM: COUGH, SHORTNESS OF BREATH TECHNIQUE: Frontal and lateral views of the chest. COMPARISON: None. FINDINGS: The heart is normal in size. The mediastinum is normal in contour. Pulmonary vascular congestion. Small bilateral pleural effusions. RAD/Chest PA and Lateral IMPRESSION: Small bilateral pleural effusions. Probable pulmonary vascular congestion. Reading Location: [place] [address]
[2025-04-27 23:30] LABS: Troponin T High Sens 2 HR 16 ng/L (<=22)
== END 2025-04-27 23:52 | disposition home or self-care (01) ==
PROVIDERS: Emergency Provider Emergency Medicine; PCP Internal Medicine; Referring Provider Emergency Medicine; Visit Provider Emergency Medicine
DX: J98.11 Atelectasis (principal); J90 Pleural effusion, not elsewhere classified; R50.9 Fever, unspecified; E78.5 Hyperlipidemia, unspecified; F17.200 Nicotine dependence, unspecified, uncomplicated; Z79.899 Other long term (current) drug therapy; Z90.5 Acquired absence of kidney; R73.9 Hyperglycemia, unspecified
CPT/HCPCS: 71046; 80048; 84484; 85025; 93005; 94640; 94760; 99283; A4216

== ENCOUNTER 2025-06-09 09:50 | Day surgery (SDC) | payer MEDICARE, OTHER, SELFPAY ==
--- NOTE | 2025-05-26 19:31 | PAT.ANESEVAL ---
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 When Was Last Pacemaker Check QUESTION #4 FULL TEXT: You/Your Family Experience fever (hyperthermia) with Anesthesia Last Oral Intake Last Oral intake: Last Oral Intake NPO since Meds taken in AM with sips of water? Meds patient instructed to take am of surgery PONV PONV - superintendent storage area: PONV - superintendent storage area Female No 05/26/25 13:18 HX of Motion Sickness No 05/26/25 13:18 HX of N/V After Surgery No 05/26/25 13:18 Non-Smoker No 05/26/25 13:18 Duration of Surgery greater Yes 05/26/25 13:18 than 60 minutes Number of Risk Factors 1 05/26/25 13:18 PONV Score Low Risk 05/26/25 13:18 Height & Weight Height & Weight: Anesthesia: Height & Weight Height 5 ft 10 in 05/04/25 13:09 Respiratory Assessment Respiratory Assessment - superintendent storage area: Respiratory Tract Infection Hx - superintendent storage area Hx Respiratory Tract Infection No 05/26/25 13:18 STOP Sleep Apnea STOP Sleep Apnea - superintendent storage area: STOP Sleep Apnea - superintendent storage area Hx Hypertension No 05/26/25 13:18 Hx Sleep Apnea No 05/26/25 13:18 CPAP BIPAP Do you snore loudly (louder Yes 05/26/25 13:18 than talking or can be heard Do you often feel tired/ No 05/26/25 13:18 fatigued/ sleepy during daytime? Has anyone observed you stop No 05/26/25 13:18 breathing during sleep? STOP Results Negative 05/26/25 13:18 QUESTION #5 FULL TEXT : Do you snore loudly (louder than talking or can be heard through closed doors)? 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 Specify any problems Hx of Preganancy in last 3 N/A 05/26/25 13:18 Months Nurse Filling Out Transfusion [email or web address] 05/26/25 13:18 & Questions: Date: 05/26/25 05/26/25 13:18 Time: 13:21 05/26/25 13:18 Patient unable to answer at this time (ie. confused, unrespo /Reproduction History /Reproductive History - superintendent storage area: /Reproductive Hx- superintendent storage area Hx Now Gestational Age (in weeks): EDC: Hx Hx Para Hx Section SAB No 02/11/25 13:33 PFSH Medical History (Updated 05/26/25 @ 13:25 by Mariano Niño) Rash Back pain Chest pain Wears glasses Wears dentures Wears partial dentures Alcohol use Loss of consciousness Dietary restriction Gastric reflux Smoker Chronic cough Hyperlipemia Kidney disease Home Medications Medication Instructions Recorded Last Taken Type multivitamin with folic acid 400 1 tab PO DAILY 06/12/15 02/04/25 History mcg tablet (Thera) dutasteride 0.5 mg capsule 0.5 mg PO DAILY 01/31/25 Unknown History montelukast 10 mg tablet 10 mg PO QHS allergies 01/31/25 02/24/25 History simvastatin 40 mg tablet 40 mg PO QHS 01/31/25 Unknown History omeprazole 40 mg capsule,delayed 40 mg PO QDAY #30 caps 02/08/25 Unknown Rx release tamsulosin 0.4 mg capsule (Flomax) 0.4 mg PO DAILY #30 caps 02/27/25 Unknown Rx Allergy/AdvReac Type Severity Reaction Status Date / Time No Known Allergies Allergy Verified 05/26/25 13:15 Family History Mother Diabetes Brother Diabetes Colon cancer Surgical History (Updated 05/26/25 @ 13:25 by Mariano Niño) Hx of laparoscopy Status post appendectomy Social History Smoking Status: Current every day smoker tobacco type: cigarettes quit status: not considering quitting Audit: Pertinent Findings Pertinent Findings EKG Perinent findings: April 27, 2025. Normal sinus rhythm. Cannot rule out anterior infarct, age undetermined. Recommendation Anesthesia Recommendation Anesthesia recommendation: OPTIMIZED for anesthesia
[2025-06-09] VITALS (8 sets, daily range): BP systolic 107–123; BP diastolic 51–83; PULSE 61–69; RESP 16–20; TEMP 36.1–37; O2SAT 90–100; BMI 32.2
--- NOTE | 2025-06-09 10:00 | EKG12_ITS ---
Test Reason : PREOP Blood Pressure : */* mmHG Vent. Rate : 61 BPM Atrial Rate : 61 BPM P-R Int : 136 ms QRS Dur : 84 ms QT Int : 398 ms P-R-T Axes : 33 -34 51 degrees QTcB Int : 400 ms Normal sinus rhythm Left axis deviation Low voltage QRS Abnormal ECG QRS axis Shifted left Confirmed by YAYA CLARKE, LEIGHTON ([id number]), multimedia editor LUIZ SEGURA ([id number]) on 06/13/2025 9:46:04 AM Referred By: Erwin Garcia Confirmed By: LEIGHTON JAVIER MD
[2025-06-09] MEDS: INDOCYANINE GREEN 3.75 MG in Syringe 1.5 ML 999 MG IV (10:20)
[2025-06-09] MEDS: Lactated Ringers 1,000 ML 15 ML IV (10:20)
--- NOTE | 2025-06-09 10:46 | PCM.HP.BLA ---
History and Physical Date of Admission: 06/09/25 Intake Vital Signs 04/26/2515:18 04/27/2520:27 05/04/2513:09 Height 5 ft 10 in 5 ft 10 in 5 ft 10 in Weight: 225 lb BMI 32.3 BP 132/81 H Blood Pressure Location Rt brachial Position Sitting Respiration 18 Pulse 87 Pulse Source Monitor Temp 97.6 F L Temp Source Temporal Pulse Oximetry (%) 98 Oxygen Delivery Method room air Intake Visit Reasons: GALLBLADDER Chief Complaint: discuss cholecystectomy Accompanied by: Is patient in pain?: Yes (RUQ pain) Allergies No Known Allergies Allergy (Verified 05/04/25 13:09) Medications Medication Instructions Recorded Confirmed Type multivitamin with folic acid 400 1 tab PO DAILY 06/12/15 05/04/25 History mcg tablet (Thera) dutasteride 0.5 mg capsule 0.5 mg PO DAILY 01/31/25 05/04/25 History montelukast 10 mg tablet 10 mg PO QHS allergies 01/31/25 05/04/25 History simvastatin 40 mg tablet 40 mg PO QHS 01/31/25 05/04/25 History omeprazole 40 mg capsule,delayed 40 mg PO QDAY #30 caps 02/08/25 05/04/25 Rx release tamsulosin 0.4 mg capsule (Flomax) 0.4 mg PO DAILY #30 caps 02/27/25 05/04/25 Rx Have you fallen in the past year?: No PFSH Medical History Wears glasses Wears dentures Wears partial dentures Alcohol use Loss of consciousness Dietary restriction Gastric reflux Smoker Chronic cough Hyperlipemia Kidney disease Surgical History Hx of laparoscopy Status post appendectomy Family History Mother DiabetesBrother Diabetes Colon cancer Social History Smoking Status: Light Smoker (<10/day) quit status: not considering quitting HPI HPI HPI: Patient is a 74-year-old male who was recently admitted with gallstone pancreatitis. He had a ERCP with stone removal and stent placement. He is here to discuss laparoscopic cholecystectomy. ROS General General: Yes fatigue; No weight change, appetite, colon cancer or breast cancer HEENT HEENT: No difficulty swallowing, eye injury, eye surgery, swollen glands or hoarseness Endo Endocrine: No thyroid disease, diabetes mellitus, thyroid cancer, Hair loss, heat intolerance or cold intolerance Skin Skin: No rash or changing moles Musc Musculoskeletal: Yes back problems and arthritis; No rheumatoid arthritis, gout or joint pain Cardio Cardiovascular: No murmur, pacemaker, heart disease, atrial fibrillation, high blood pressure, heart attack, heart stent, palpitations, shortness of breath with exertion or chest pain Psych Psychiatric: No depression, anxiety or hearing voices Resp Respiratory: No shortness of breath, No sleep apnea, No cough, No COPD, No asthma, No emphysema and No wheezing Gastro Gastrointestinal: Yes abdominal pain, Yes nausea or vomiting, No diarrhea, No constipation, No blood in stool, No acid reflux, No hemorrhoids, No ulcers, Yes gallbladder problem and No black,tarry stools Avelino Hematologic: No blood thinners, No blood disorders, No bleeding, No anemia and No blood clots Neuro Neurologic: Yes numbness and Yes tingling Exam Const General: cooperative Orientation: alert and oriented x3 HENMT Head: normal to inspection Neck Neck: normal visual inspection and full ROM Chest Chest palpation & inspection: normal inspection of the chest Resp Effort & Inspection: normal respiratory effort Auscultation: clear to auscultation bilaterally Cardio Rate: regular rate Rhythm: regular rhythm GI Inspection: non-distended Palpation: soft and nontender Skin General: no rashes or lesions noted Neuro General: patient alert and patient oriented x3 Extrem General: full ROM Psych Appearance: grossly normal Mental Status: mental status grossly normal Assessment and Plan Assessment and Plan (1) Gallstones: Status: Acute Plan: Patient had gallstone pancreatitis and requires cholecystectomy. I discussed robotic assisted laparoscopic cholecystectomy with the patient in detail. I discussed the procedure in detail with the patient. I discussed the risks, benefits, and alternatives of the procedure. I discussed the risks including but not limited to bleeding, infection, injury to surrounding organs such as the liver, bile duct, bowels. I did discuss the possibility of having to convert to an open procedure as well as the possibility that if any injuries occurred this may necessitate further surgery at a tertiary care center. Rad Arnold MD Pager: [facility] [address] [place] [address], [address] [place] [address] Office: I have examined the patient and the H&P has been reviewed. There are no clinical changes since date of exam.
--- NOTE | 2025-06-09 10:50 | PCM.PRE.AN2 ---
ASA Classification* ASA Classification ASA Classification: 2 Assessment & Plan Anesthesia* Anesthesia Assessment Anesthesia Assessment: Discussed sedation and/or anesthesia options, risks, benefits, and alternatives with patient/parents/legal guardian/POA. Questions invited. The patient/parents/legal guardian/POA seems to understand and agrees to proceed with anesthesia plan. Reviewed the physical assessment, medical history, allergy history and patient home medications list prior to surgery/procedure/anesthetic and documented any changes. Performed airway and anesthesia risk assessments. Anesthesia Type Anesthesia Type: General History Source History Obtained from:: Patient and Chart Anesthesia Focused Assessment* Temperature: 98.6 F Pulse Rate: 63 Blood Pressure: 118/83 Respiratory Rate: 16 Pulse Ox: 98 Airway Assessment Mouth opens: >3 cm Mallampati Score: II Teeth Condition: Dentures (upper and lower dentures both removed prior to surgery) Neck Range of motion (ROM): Full ROM Labs Anesthesia Preop lab: CBC WBC 12.0 K/mm3 (4.4-11.0) H 04/27/25 20:42 04/27/25 RBC 4.44 M/mm3 (4.6-6.2) L 04/27/25 20:42 04/27/25 Hgb 12.7 g/dL (13.0-16.5) L 04/27/25 20:42 04/27/25 Hct 38.6 % (40-54) L 04/27/25 20:42 04/27/25 Plt Count 131 K/mm3 (150-450) L 04/27/25 20:42 04/27/25 CHEMISTRY Potassium 3.6 mmol/L (3.3-5.1) 04/27/25 20:42 04/27/25 Sodium 136 mmol/L (133-145) 04/27/25 20:42 04/27/25 BUN 14 mg/dL (4-19) 04/27/25 20:42 04/27/25 Creatinine 1.37 mg/dL (0.70-1.20) H 04/27/25 20:42 04/27/25 Glucose 206 mg/dL (70-99) H 04/27/25 20:42 04/27/25 COAG Pre-Assessment Diagnosis/Proposed Procedure Planned Operative Procedure(s): ROBOTIC CHOLECYSTECTOMY Anesthesia History 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 When Was Last Pacemaker Check QUESTION #4 FULL TEXT: You/Your Family Experience fever (hyperthermia) with Anesthesia Last Oral Intake Last Oral intake: Last Oral Intake NPO since 22:00 06/09/25 10:15 Meds taken in AM with sips of No 06/09/25 10:15 water? Meds patient instructed to take am of surgery PONV PONV - brace end mainspring former: PONV - brace end mainspring former Female No 05/26/25 13:18 HX of Motion Sickness No 05/26/25 13:18 HX of N/V After Surgery No 05/26/25 13:18 Non-Smoker No 05/26/25 13:18 Duration of Surgery greater Yes 05/26/25 13:18 than 60 minutes Number of Risk Factors 1 05/26/25 13:18 PONV Score Low Risk 05/26/25 13:18 Height & Weight Height & Weight: Anesthesia: Height & Weight Height 5 ft 10 in 06/09/25 10:15 Weight: 102 kg 06/09/25 10:15 Body Mass Index (BMI) 32.2 06/09/25 10:15 Respiratory Assessment Respiratory Assessment - brace end mainspring former: Respiratory Tract Infection Hx - brace end mainspring former Hx Respiratory Tract Infection No 05/26/25 13:18 STOP Sleep Apnea STOP Sleep Apnea - brace end mainspring former: STOP Sleep Apnea - brace end mainspring former Hx Hypertension No 05/26/25 13:18 Hx Sleep Apnea No 05/26/25 13:18 CPAP BIPAP Do you snore loudly (louder Yes 05/26/25 13:18 than talking or can be heard Do you often feel tired/ No 05/26/25 13:18 fatigued/ sleepy during daytime? Has anyone observed you stop No 05/26/25 13:18 breathing during sleep? STOP Results Negative 05/26/25 13:18 QUESTION #5 FULL TEXT : Do you snore loudly (louder than talking or can be heard through closed doors)? 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 Specify any problems Hx of Preganancy in last 3 N/A 05/26/25 13:18 Months Nurse Filling Out Transfusion [email or web address] 05/26/25 13:18 & Questions: Date: 05/26/25 05/26/25 13:18 Time: 13:21 05/26/25 13:18 Patient unable to answer at this time (ie. confused, unrespo /Reproduction History /Reproductive History - brace end mainspring former: /Reproductive Hx- brace end mainspring former Hx Now Gestational Age (in weeks): EDC: Hx Hx Para Hx Section SAB No 02/11/25 13:33 Active Medications Active Medications: Current Medications Generic Name Dose Route Start Last Admin Trade Name Freq PRN Reason Stop Dose Admin Cefotetan Disodium 2 gm/ 100 mls @ 200 mls/hr 06/09/25 11:30 Sodium Chloride IV 06/09/25 11:59 INTRAOP ONE Lactated Ringer's 1,000 mls @ 15 mls/hr 06/09/25 10:00 06/09/25 10:20 IV 15 mls/hr .Q48H MARVIN Administration PFSH Medical History Rash Back pain Chest pain Wears glasses Wears dentures Wears partial dentures Alcohol use Loss of consciousness Dietary restriction Gastric reflux Smoker Chronic cough Hyperlipemia Kidney disease Home Medications Medication Instructions Recorded Last Taken Type multivitamin with folic acid 400 1 tab PO DAILY 06/12/15 02/04/25 History mcg tablet (Thera) dutasteride 0.5 mg capsule 0.5 mg PO DAILY 01/31/25 Unknown History montelukast 10 mg tablet 10 mg PO QHS allergies 01/31/25 02/24/25 History simvastatin 40 mg tablet 40 mg PO QHS 01/31/25 Unknown History omeprazole 40 mg capsule,delayed 40 mg PO QDAY #30 caps 02/08/25 Unknown Rx release tamsulosin 0.4 mg capsule (Flomax) 0.4 mg PO DAILY #30 caps 02/27/25 Unknown Rx Allergy/AdvReac Type Severity Reaction Status Date / Time No Known Allergies Allergy Verified 06/09/25 10:26 Family History Mother Diabetes Brother Diabetes Colon cancer Surgical History Hx of laparoscopy Status post appendectomy Social History Smoking Status: Current every day smoker tobacco type: cigarettes quit status: not considering quitting Review of Systems (Anesthesia) ROS Narrative System reviewed and no additional complaints, except as documented.
--- NOTE | 2025-06-09 11:30 | GALL_PTH ---
PATIENT: HOLLIE POWERS LOC: [facility] [place] U#:[id number] AGE/SX: 74/M ROOM: RE06/09/[address]: Dr. Rad Arnold MD : [id number] BED: DIS: 06/09/2025 SPEC #: [id number] RECD: 06/09/25 13:15 STATUS: AVERY REJuan David #: [id number] DARIA: 06/09/25 11:[address]: Rad Arnold DEPT: SURGICAL PATHOLOGY RECD BY: Trell Guerin ENTERED: 06/09/25 14:04 SP TYPE: CHRISSY HAQUE DR: Dr. Erwin Garcia MD Tissues: A - Gallbladder, NOS Procedures: Surgery Specimen Level III HEADER OPERATION: Robotic cholecystectomy PRE-OP DIAGNOSIS: Gallstones TISSUE SUBMITTED: A- Gallbladder MICROSCOPIC DIAGNOSIS A. Gallbladder, "gallstones", cholecystectomy: - Acute on chronic cholecystitis with cholelithiasis. MICROSCOPIC DESCRIPTION Slides are reviewed. GROSS DESCRIPTION A. Received in formalin labeled with the patient's name and date of . Designated as "gallbladder" is a 4.9 x 2.8 x 2.1 cm argueta-pink, focally fatty and intact gallbladder with attached patent cystic duct (inked black, shaved). A lymph node is not present. Opening reveals hemorrhagic, tenacious bile and a few pigmented choleliths, ranging <0.1 cm to 0.2 cm. The mucosa is pink-red and granular with a maximum wall thickness of 0.3 cm. The wall is focally cystic at the fundus. Cholesterolosis is not present. Diversified Crops Farmer sections are submitted in 2 cassettes. [place] 06/09/2025 CPT:54021
--- NOTE | 2025-06-09 12:39 | PCM.OPRPT ---
Operative Report (Standard) Operative Information Date of Procedure: 06/09/25 Pre-Operative Diagnosis: Cholelithiasis Post-Operative Diagnosis: Same Surgery/Procedure Performed: Robotic assisted laparoscopic cholecystectomy clinical applications specialist: Yes Radial Drill Press Operator: Diana Etienne Tasks completed by or first assist registered nurse: Opening & closing and Retracting Type of Anesthesia: General/Regional RN Documented Start/Stop Times: Operation Date: 06/09/25 11:30 Case Time Into Pre-Op 06/09/25 09:55 Out of Pre-Op 06/09/25 11:14 Anesthesia Start 06/09/25 11:19 Into Room 06/09/25 11:19 Procedure Start 06/09/25 11:39 Procedure Start Time: 11:39 Procedure Stop Time: 12:45 Select all DRAINS/GRAFTS/IMPLANTS that apply: None Estimated Blood Loss: 10 Specimen collected: Yes Description of specimen(s) removed: Gallbladder Description of surgery: The patient was brought back to the operating room and general anesthesia was induced. The abdomen was prepped and draped in the usual sterile fashion. A midline incision was made superior to the umbilicus and deepened to the fascia. The fascia was grasped and elevated. A Veress needle was placed into the abdomen and a drop test was performed. The abdomen was then insufflated to 15 mmHg and the Veress needle was removed. An 8 mm port was placed into the abdomen and then the camera was placed into the abdomen. There was no injury from entry. Under direct visualization an 8 mm port was placed in the right upper quadrant and two 8 mm ports were placed in the left upper quadrant. The midline port was upsized to a 12 mm port. Next the patient was placed in steep reverse Trendelenburg and the robot was docked. The graspers were used to retract the gallbladder cephalad. The infundibulum was encountered and dissected free and retracted laterally. Dissection was carried out and critical view was obtained. Next the cystic duct was identified using ICG. The cystic duct was clipped and divided. The cystic artery was then clipped and divided. The gallbladder was then taken off of the gallbladder fossa using electrocautery. There was good hemostasis with no leaking bile. The camera was then moved to a different port and a bag was placed through the midline incision and the gallbladder was placed into the bag. Next the robot was undocked and the gallbladder was removed in the bag. Next using a Anurag Hawkins needle the midline fascia was closed with an 0 Vicryl suture. The ports were then removed and the abdomen was allowed to desufflate. The incisions were injected with local anesthetic and closed with interrupted 4-0 Monocryl sutures. Steri-Strips and bandages were applied. Patient was then awoken and taken to PACU in stable condition and tolerated the procedure well. Surgical Findings: None Complications Complications: No Admit VTE Documentation VTE Mechan Device Prophylaxis: SCD's
--- NOTE | 2025-06-09 12:42 | DCINST_ITS ---
Discharge Instructions Procedure Gallbladder Diet Discharge Diet: Light diet - advance as tolerated Activity Discharge Activity: May Not Drive (for 2-3 days or while taking narcotic pain medications.) and - (Do not drive, work heavy equipment or sign legal documents for 24 hours.) May shower in (days): 1 Lifting Restrictions: 20 lbs for 2 weeks Additional Activity Instructions:: Pain medication may cause nausea. You should typically eat light foods as you take your pain medications. Pain medication may also cause constipation. If this is a problem for you, please discuss with your doctor. Alternate ibuprofen and Tylenol for pain control, oxycodone for breakthrough pain Dressing / Incision Call your doctor if your incision/area has: Continuous Slow Oozing, Sudden Increased Bleeding, Increased Pain/ Swelling, Increased Redness and Foul Smelling Discharge Call your doctor if you observe: Fever of 101 or Higher Suture Line Care: Avoid Pulling/Pushing and Avoid Pinching/Bending Remove Dressing in: 2 days Additional Dressing/Incision Instructions:: Leave operative bandaids on for 2 days. When you remove dressing, leave Steri-Strips on until your follow-up appointment, or until the Steri-Strips fall off on their own. Follow Up Care Please Follow Up With: Rad Arnold MD When: Please call to schedule 2 week follow up appointment. [phone] Test Results: Test results from this visit will be discussed in further detail at your follow- up appointment, if applicable. Discharge Plan Admission Attending Provider: Rad Arnold Primary Care Provider: Erwin Garcia Instructions Print Language: Bulgarian Discharge Orders/Prescriptions Prescriptions: New oxycodone 5 mg Tablet 5 - 10 mg PO Q4H PRN PRN (Reason: Pain Score 4-10) 5 Days Qty: 14 0RF No Action omeprazole 40 mg capsule,delayed release(DR/EC) 40 mg PO QDAY Qty: 30 3RF Rx Instructions: swallow whole; do not crush, chew, dissolve, cut, break multivitamin with folic acid [Thera] 1 TABLET tablet 1 tab PO DAILY simvastatin 40 mg tablet 40 mg PO QHS montelukast 10 mg tablet 10 mg PO QHS dutasteride 0.5 mg capsule 0.5 mg PO DAILY tamsulosin [Flomax] 0.4 mg capsule 0.4 mg PO DAILY Qty: 30 1RF Referrals / Follow Up: Erwin Garcia MD [Primary Care Provider] - Disposition Disposition (needs filled in before D/C Order can be placed): Home, Self Care
--- NOTE | 2025-06-09 12:54 | PCM.POST.ANE ---
Anesthesia: Postop Eval I Current Vital Signs Temperature: 97.7 F Pulse Rate: 65 Blood Pressure: 107/51 Respiratory Rate: 20 Pulse Ox: 96 Oxygen Delivery Method: Room Air Assessment Airway patent: Yes Spontaneous unlabored respirations: Yes Mental status: Awake and Calm nausea: No Vomiting: No Anesthesia Complication: No Fluid Hydration Crystalloid volume administer (ml): 900 Total IV fluid infused: 900 Progress Note Anesthesia document: Postop Eval 1 completed: Yes
== END 2025-06-09 14:08 | disposition home or self-care (01) ==
LOC: SDC 09:50 → AC 09:51
PROVIDERS: PCP Internal Medicine; Referring Provider Internal Medicine; Visit Provider Surgery
PROC: 0FT44ZZ Resection of Gallbladder, Percutaneous Endoscopic Approach (ICD-10-PCS; CPT 47562; principal; 2025-06-09 11:10)
DX: K80.12 Calculus of gallbladder with acute and chronic cholecystitis without obstruction (principal); E78.5 Hyperlipidemia, unspecified; K21.9 Gastro-esophageal reflux disease without esophagitis; F17.210 Nicotine dependence, cigarettes, uncomplicated
CPT/HCPCS: 47562; S2900; 00790; 88304; 93005; J2405

== ENCOUNTER 2025-07-04 11:09 | Day surgery (SDC) | payer MEDICARE, OTHER, SELFPAY ==
[2025-07-04] VITALS (8 sets, daily range): BP systolic 96–107; BP diastolic 58–77; PULSE 56–71; RESP 16; TEMP 36.1–36.6; O2SAT 93–97; BMI 32.1
--- NOTE | 2025-07-04 11:34 | EKG12_ITS ---
Test Reason : PREOP Blood Pressure : */* mmHG Vent. Rate : 65 BPM Atrial Rate : 65 BPM P-R Int : 160 ms QRS Dur : 82 ms QT Int : 404 ms P-R-T Axes : 67 -21 53 degrees QTcB Int : 420 ms Normal sinus rhythm Low voltage QRS Borderline ECG When compared with ECG of 09-Jun-2025 10:05, No significant change was found Confirmed by YAYA CLARKE, LEIGHTON ([id number]), pictures editor LUIZ SEGURA ([id number]) on 07/06/2025 9:32:14 AM Referred By: Erwin Garcia Confirmed By: LEIGHTON JAVIER MD
[2025-07-04] MEDS: Lactated Ringers 1,000 ML 15 ML IV (11:51)
--- NOTE | 2025-07-04 12:18 | PCM.PRE.AN2 ---
ASA Classification* ASA Classification ASA Classification: 2 Assessment & Plan Anesthesia* Anesthesia Assessment Anesthesia Assessment: Discussed sedation and/or anesthesia options, risks, benefits, and alternatives with patient/parents/legal guardian/POA. Questions invited. The patient/parents/legal guardian/POA seems to understand and agrees to proceed with anesthesia plan. Reviewed the physical assessment, medical history, allergy history and patient home medications list prior to surgery/procedure/anesthetic and documented any changes. Performed airway and anesthesia risk assessments. Anesthesia Type Anesthesia Type: MAC History Source History Obtained from:: Patient and Chart Anesthesia Focused Assessment* Temperature: 98 F Pulse Rate: 56 Blood Pressure: 107/77 Respiratory Rate: 16 Pulse Ox: 97 Oxygen Delivery Method: Room Air Airway Assessment Mouth opens: >3 cm Mallampati Score: III Teeth Condition: Full (Full upper dentures are out.) and Partial (Lower partials are out. Left lower molar is slightly loose. Rest of the teeth are tight.) Neck Range of motion (ROM): Limited ROM (Somewhat Decreased) Labs Anesthesia Preop lab: CBC WBC 12.0 K/mm3 (4.4-11.0) H 04/27/25 20:04/27/25 RBC 4.44 M/mm3 (4.6-6.2) L 04/27/25 20:42 04/27/25 Hgb 12.7 g/dL (13.0-16.5) L 04/27/25 20:42 04/27/25 Hct 38.6 % (40-54) L 04/27/25 20:04/27/25 Plt Count 131 K/mm3 (150-450) L 04/27/25 20:42 04/27/25 CHEMISTRY Potassium 3.6 mmol/L (3.3-5.1) 04/27/25 20:42 04/27/25 Sodium 136 mmol/L (133-145) 04/27/25 20:42 04/27/25 BUN 14 mg/dL (4-19) 04/27/25 20:42 04/27/25 Creatinine 1.37 mg/dL (0.70-1.20) H 04/27/25 20:42 04/27/25 Glucose 206 mg/dL (70-99) H 04/27/25 20:42 04/27/25 COAG Pre-Assessment Diagnosis/Proposed Procedure Planned Operative Procedure(s): ERCP STENT PULL Anesthesia History 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 When Was Last Pacemaker Check QUESTION #4 FULL TEXT: You/Your Family Experience fever (hyperthermia) with Anesthesia Last Oral Intake Last Oral intake: Last Oral Intake NPO since 23:00 07/04/25 11:46 Meds taken in AM with sips of No 07/04/25 11:46 water? 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 machine operator Female No 07/01/25 09:08 HX of Motion Sickness No 07/01/25 09:08 HX of N/V After Surgery No 07/01/25 09:08 Non-Smoker No 07/01/25 09:08 Duration of Surgery greater Yes 07/01/25 09:08 than 60 minutes Number of Risk Factors 1 07/01/25 09:08 PONV Score Low Risk 07/01/25 09:08 Height & Weight Height & Weight: Anesthesia: Height & Weight Height 5 ft 10 in 07/04/25 11:46 Weight: 101.4 kg 07/04/25 11:46 Body Mass Index (BMI) 32.1 07/04/25 11:46 Respiratory Assessment Respiratory Assessment - rougher machine operator: Respiratory Tract Infection Hx - rougher machine operator Hx Respiratory Tract Infection No 07/01/25 09:08 STOP Sleep Apnea STOP Sleep Apnea - rougher machine operator: STOP Sleep Apnea - rougher machine operator Hx Hypertension No 07/01/25 09:08 Hx Sleep Apnea No 07/01/25 09:08 CPAP BIPAP Do you snore loudly (louder No 07/01/25 09:08 than talking or can be heard Do you often feel tired/ No 07/01/25 09:08 fatigued/ sleepy during daytime? Has anyone observed you stop No 07/01/25 09:08 breathing during sleep? STOP Results Negative 07/01/25 09:08 QUESTION #5 FULL TEXT : Do you snore loudly (louder than talking or can be heard through closed doors)? 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 Specify any problems Hx of Preganancy in last 3 N/A 07/01/25 09:08 Months Nurse Filling Out Transfusion DSCHRIBER 07/01/25 09:08 & Questions: Date: 07/01/25 07/01/25 09:08 Time: 09:09 07/01/25 09:08 Patient unable to answer at this time (ie. confused, unrespo /Reproduction History /Reproductive History - rougher machine operator: /Reproductive Hx- rougher machine operator Hx Now Gestational Age (in weeks): EDC: Hx Hx Para Hx Section SAB No 07/01/25 09:08 Active Medications Active Medications: Current Medications Generic Name Dose Route Start Last Admin Trade Name Freq PRN Reason Stop Dose Admin Lactated Ringer's 1,000 mls @ 15 mls/hr 07/04/25 11:30 07/04/25 11:51 IV 15 mls/hr .Q48H MARVIN Administration PFSH Medical History Prostate disease Back pain Wears glasses Wears dentures Wears partial dentures Alcohol use Loss of consciousness Gastric reflux Smoker Chronic cough Hyperlipemia Kidney disease Home Medications ?Medication ?Instructions ?Recorded ?Last Taken ?Type multivitamin with folic acid 400 1 tab PO DAILY 06/12/15 07/03/25 History mcg tablet (Thera) dutasteride 0.5 mg capsule 0.5 mg PO DAILY 01/31/25 07/03/25 History montelukast 10 mg tablet 10 mg PO QHS allergies 01/31/25 07/03/25 History simvastatin 40 mg tablet 40 mg PO QHS 01/31/25 07/03/25 History tamsulosin 0.4 mg capsule (Flomax) 0.4 mg PO QHS 07/01/25 07/03/25 History Allergy/AdvReac Type Severity Reaction Status Date / Time No Known Allergies Allergy Verified 07/04/25 11:44 Family History Mother Diabetes Brother Diabetes Colon cancer Surgical History Hx laparoscopic cholecystectomy History of ERCP Hx of laparoscopy Status post appendectomy Social History Smoking Status: Current every day smoker tobacco type: cigarettes quit status: not considering quitting alcohol intake: current substance use type: does not use caffeine: No what type of physical activity do you participate in: walking Review of Systems (Anesthesia) ROS Narrative System reviewed and no additional complaints, except as documented.
--- NOTE | 2025-07-04 12:45 | FLU_PTH ---
PATIENT: HOLLIE POWERS LOC: EN U#:[id number] AGE/SX: 74/M ROOM: RE07/04/[address]: Dr. Curtis Villatoro DO : 1950 BED: DIS: 07/04/2025 SPEC #: [id number] RECD: 07/04/25 13:47 STATUS: AVERY REQ #: [id number] DARIA: 07/04/25 12:[address]: Curtis Villatoro DEPT: CYTOLOGY RECD BY: Linh Castle ENTERED: 07/05/25 07:20 SP TYPE: Fluid OTHR DR: Dr. Erwin Garcia MD Tissues: Bile duct, NOS Procedures: Special Stain Group II Surgery Specimen Level III Surgery Specimen Level IV Cytospin Fluid HEADER OPERATION: ERCP, stent removal PRE-OP DIAGNOSIS: Biliary stent removal TISSUE SUBMITTED: A- Biliary stent for cytology DIAGNOSIS CYTOLOGY A. Biliary stent (cytospin, cellblock): - Nondiagnostic. - Essentially acellular specimen with foreign material and bile pigment. CYTOLOGY STUDY Slides are reviewed. CYTOLOGY GROSS A. Received is 10mm blackish-blue stent with 0.5 ml of yellow-orange material labeled with the patient's name and and designated per the requisition as Biliary stent. Submitted for cytology and cell block preparation. Mr 07/05/2025 CPT: 35647 ,18127
--- NOTE | 2025-07-04 13:02 | PCM.HP.STD ---
HPI - General General Date of Admission: 07/04/25 Date of Service: 07/04/25 Chief Complaint: ERCP with stent removal HPI Narrative HOLLIE POWERS, is a 74 M who presents for ERCP with stent removal Details: 04.26.25 ERCP - The biliary system were moderately dilated, with a stone causing an obstruction. - Choledocholithiasis was found. Complete removal was accomplished by biliary sphincterotomy and balloon extraction. - A biliary sphincterotomy was performed. - The biliary tree was swept. - One temporary stent was placed into the common bile duct. 06.09.25 Cholecystectomy w/ 06.16.25 OV He denies all GI complaints at this time. Reports daily complete BMs. Does state mild tenderness at supra umbilical lap site, but also states that his nephrectomy surgery used the same area. Reviewed risks and alarm symptoms related to prolonged biliary stent placement. He states his cholecystectomy surgery follow-up is scheduled for next week, June 23, with . [facility] Medical History Prostate disease Back pain Wears glasses Wears dentures Wears partial dentures Alcohol use Loss of consciousness Gastric reflux Smoker Chronic cough Hyperlipemia Kidney disease Home Medications ?Medication ?Instructions ?Recorded ?Last Taken ?Type multivitamin with folic acid 400 1 tab PO DAILY 06/12/15 07/03/25 History mcg tablet (Thera) dutasteride 0.5 mg capsule 0.5 mg PO DAILY 01/31/25 07/03/25 History montelukast 10 mg tablet 10 mg PO QHS allergies 01/31/25 07/03/25 History simvastatin 40 mg tablet 40 mg PO QHS 01/31/25 07/03/25 History tamsulosin 0.4 mg capsule (Flomax) 0.4 mg PO QHS 07/01/25 07/03/25 History Allergy/AdvReac Type Severity Reaction Status Date / Time No Known Allergies Allergy Verified 07/04/25 11:44 Family History Mother Diabetes Brother Diabetes Colon cancer Surgical History Hx laparoscopic cholecystectomy History of ERCP Hx of laparoscopy Status post appendectomy Social History Smoking Status: Current every day smoker (Patient smoked today.) tobacco type: cigarettes quit status: not considering quitting alcohol intake: current substance use type: does not use caffeine: No what type of physical activity do you participate in: walking ROS Constitutional Constitutional: Denies fatigue, fever(s), poor appetite, weight gain or weight loss Gastrointestinal Gastrointestinal: Denies belching, bloating, change in bowel habits, change in stool character, chewing difficulty, coffee ground emesis, constipation, cramping, diarrhea, dyspepsia, dysphagia, early satiety, excessive flatus, fecal incontinence, heartburn, hematemesis, hematochezia, hemorrhoids, loose stools, melena, nausea, odynophagia, rectal bleeding, tenesmus, vomiting or weight changes Vital Signs Vital Signs Vital Signs: 07/04/25 11:46 07/04/25 11:46 07/04/25 12:25 Temperature 98 F 98 F Temperature Source Temporal Pulse Rate 56 L 56 L Respiratory Rate 16 16 Respiratory Pattern Normal Blood Pressure 107/77 107/77 Blood Pressure Mean 87 Blood Pressure Source Monitor Blood Pressure Position Semi-Fowlers Blood Pressure Location Left Arm Pulse Ox 97 97 Oxygen Delivery Method Room Air Room Air Weight Weight: 223 lb 8.78 oz Body Mass Index (BMI) 32.1 Physical Exam Const alert, oriented x3, no apparent distress and healthy appearing General Appearance: cooperative GI normal to inspection, nondistended, normoactive bowel sounds, soft to palpation, non-tender and non-distended Percussion: normal to percussion Rectal Exam: deferred Assessment & Plan Assessment/Plan (1) S/P cholecystectomy: (2) Bloating symptom: (3) Gallstones: (4) Cholelithiasis: QUALIFIERS: Cholelithiasis location: gallbladder and bile duct Cholecystitis presence: with cholecystitis Cholecystitis acuity: chronic Biliary obstruction: with biliary obstruction Qualified Code(s): K80.65 - Calculus of gallbladder and 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 The principal risks associated with prolonged placement of a biliary stent are stent occlusion (due to sludge, stones, or bacterial biofilm), acute cholangitis, stent migration, tissue hyperplasia leading to stent embedment, and, in rare cases, secondary biliary cirrhosis or sclerosing cholangitis. Patients with prolonged biliary stent placement should monitor for symptoms of stent occlusion and cholangitis, including fever, right upper quadrant pain, jaundice, dark urine, pale stools, pruritus, and malaise. Schedule repeat ERCP for biliary stent removal. Office FU PRN. 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
--- NOTE | 2025-07-04 13:20 | RAD_ITS ---
PROCEDURE: ERCP BILIARY/PANCREAS 07/04/2025 REASON FOR EXAM: ERCP, STENT REMOVAL TECHNIQUE: ERCP BILIARY/PANCREAS. Dose report: Fluoroscopy: 38.4 seconds. 11.9 mGy. COMPARISON: Prior study dated April 26, 2025. FINDINGS: ERCP was performed by the music director. The indwelling stent was removed. RAD/ERCP Biliary/Pancreas IMPRESSION: The indwelling stent was removed. Reading Location: [facility]
--- NOTE | 2025-07-04 13:38 | OP.ERCP_ITS ---
Patient Name: Elvis Cullen Procedure Date: 07/04/2025 12:50 PM Date of : 1950 Age: 74 Procedure: ERCP Indications: Bile duct stone(s), Biliary stent removal Providers: Curtis Villatoro DO Referring MD: Erwin Garcia Medicines: Monitored Anesthesia Care Patient Profile: This is a 74 year old male. Refer to note in patient chart for documentation of history and physical. Patient has symptoms. Complications: No immediate complications. Procedure: Pre-Anesthesia Assessment: - Prior to the procedure, a History and Physical was performed, and patient medications and allergies were reviewed. The patient is competent. The risks and benefits of the procedure and the sedation options and risks were discussed with the patient. All questions were answered and informed consent was obtained. Patient identification and proposed procedure were verified by the physician in the pre-procedure area. Mental Status Examination: alert and oriented. Airway Examination: normal oropharyngeal airway and neck mobility. Respiratory Examination: clear to auscultation. CV Examination: normal. Prophylactic Antibiotics: The patient does not require prophylactic antibiotics. Prior Anticoagulants: The patient has taken no anticoagulant or antiplatelet agents. ASA Grade Assessment: II - A patient with mild systemic disease. After reviewing the risks and benefits, the patient was deemed in satisfactory condition to undergo the procedure. The anesthesia plan was to use monitored anesthesia care (MAC). Immediately prior to administration of medications, the patient was re-assessed for adequacy to receive sedatives. The heart rate, respiratory rate, oxygen saturations, blood pressure, adequacy of pulmonary ventilation, and response to care were monitored throughout the procedure. The physical status of the patient was re-assessed after the procedure. After obtaining informed consent, the scope was passed under direct vision. Throughout the procedure, the patient's blood pressure, pulse, and oxygen saturations were monitored continuously. The Duodenoscope was introduced through the mouth, and advanced to the duodenum and used to inject contrast into the bile duct. The ERCP was accomplished without difficulty. The patient tolerated the procedure well. Scope In: 1:21:35 PM Scope Out: 1:28:49 PM Total Procedure Duration Time 0 hours 7 minutes 14 seconds Findings: The case management associate film was normal. The esophagus was successfully intubated under direct vision using the device assisted enteroscope without detailed examination of the pharynx, larynx, and associated structures. A biliary stent was visible on the case management associate film. The esophagus was successfully intubated under direct vision. The scope was advanced to a normal major papilla in the descending duodenum without detailed examination of the pharynx, larynx and associated structures, and upper GI tract. The upper GI tract was grossly normal. The bile duct was deeply cannulated with the short-nosed traction sphincterotome. Contrast was injected. I personally interpreted the bile duct images. There was brisk flow of contrast through the ducts. Image quality was adequate. Contrast extended to the entire biliary tree. Opacification of the entire biliary tree except for the gallbladder, entire opacified area and entire biliary tree was successful. The maximum diameter of the ducts was 10 mm. The lower third of the main bile duct contained one stone, which was 6 mm in diameter. The entire biliary tree except for the gallbladder and entire biliary tree were segmentally dilated, with a stone causing an obstruction. The largest diameter was 11mm. A long 0.025 inch Jagwire was passed into the biliary tree. A 5 mm biliary sphincterotomy was made with a traction (standard) sphincterotome using ERBE electrocautery. There was no post-sphincterotomy bleeding. The biliary tree was swept with a 12 mm balloon starting at the upper third of the main bile duct, middle third of the main bile duct, lower third of the main duct, bifurcation, left intrahepatic duct(s) and right intrahepatic duct(s). Sludge was swept from the duct. All stones were removed. One stent was removed from the biliary tree using a snare and sent for cytology. Impression: - The entire biliary tree was dilated, with a stone causing an obstruction. - Choledocholithiasis was found. Complete removal was accomplished by biliary sphincterotomy and balloon extraction. - A biliary sphincterotomy was performed. - The biliary tree was swept. - One stent was removed from the biliary tree. Procedure Code(s): --- Professional --- 24108, Endoscopic retrograde cholangiopancreatography (ERCP); with removal of foreign body(s) or stent(s) from biliary/pancreatic duct(s) 43018, Endoscopic retrograde cholangiopancreatography (ERCP); with removal of calculi/debris from biliary/pancreatic duct(s) 06470, Endoscopic retrograde cholangiopancreatography (ERCP); with sphincterotomy/papillotomy 19534, 26, Endoscopic catheterization of the biliary ductal system, radiological supervision and interpretation CPT copyright 2021 [employer]. All rights reserved. The codes documented in this report are preliminary and upon grain distributor review may be revised to meet current compliance requirements. Curtis Villatoro DO 07/04/2025 1:38:21 PM This report has been signed electronically. Number of Addenda: 0 Note Initiated On: 07/04/2025 12:50 PM
--- NOTE | 2025-07-04 13:39 | OP.PROVAT_ITS ---
07/04/2025 Erwin Garcia [address] [place] [address] Re : ERCP procedure for Elvis Subhash Dear Dr. Garcia This procedure was performed on Friday, July 04, 2025. My impressions and recommendations are as follows: Impressions : - The entire biliary tree was dilated, with a stone causing an obstruction. - Choledocholithiasis was found. Complete removal was accomplished by biliary sphincterotomy and balloon extraction. - A biliary sphincterotomy was performed. - The biliary tree was swept. - One stent was removed from the biliary tree. Recommendations : My findings are described in the full procedure note, which is enclosed. If I can be of further assistance, please feel free to contact me at . Sincerely, Curtis Villatoro, 07/04/2025 1:38:21 PM This report has been signed electronically.
--- NOTE | 2025-07-04 13:47 | PCM.POST.ANE ---
Anesthesia: Postop Eval I Current Vital Signs Temperature: 97 F Pulse Rate: 71 Blood Pressure: 106/58 Respiratory Rate: 16 Pulse Ox: 95 Oxygen Delivery Method: Room Air Assessment Airway patent: Yes Spontaneous unlabored respirations: Yes Mental status: Awake and Calm nausea: No Vomiting: No Anesthesia Complication: No Fluid Hydration Crystalloid volume administer (ml): 500 Total IV fluid infused: 500 Progress Note Anesthesia document: Postop Eval 1 completed: Yes
--- NOTE | 2025-07-04 14:04 | PCM.POSTANE2 ---
Anesthesia Postop Eval I Sum Postop Eval Completion status Anesthesia document: Postop Eval 1 completed: Yes Anesthesia Postop Eval I Summary Anesthesia Postop Eval I Summary: Anesthesia Postop Eval I: Assessment Summary Airway patent Yes 07/04/25 13:48 [email or web address] Spontaneous unlabored Yes 07/04/25 13:48 [email or web address] respirations Mental status Awake,Calm 07/04/25 13:48 [email or web address] nausea No 07/04/25 13:48 [email or web address] Vomiting No 07/04/25 13:48 [email or web address] Anesthesia Postop Eval I: Fluid Summary Crystalloid volume administer 500 07/04/25 13:48 [email or web address] (ml) Colloids volume administered ( ml) Blood Product volume administered (ml) Total IV fluid infused 500 07/04/25 13:48 [email or web address] Anesthesia Postop Eval I: Summary Notes Anesthesia Complication No 07/04/25 13:48 [email or web address] Anesthesia Complication Comment: Post-operative progress note Anesthesia: Postop Eval II Evaluation Mental status: Awake and Calm Pain Level: 1 nausea: No Vomiting: No Complications Anesthesia Complication: No
== END 2025-07-04 14:10 | disposition home or self-care (01) ==
LOC: EN 11:10 → AC 11:12
PROVIDERS: PCP Internal Medicine; Referring Provider Internal Medicine; Visit Provider Internal Medicine Gastroenterology
PROC: (CPT 43260; principal; 2025-07-04 12:25)
DX: Z46.59 Encounter for fitting and adjustment of other gastrointestinal appliance and device (principal); K80.51 Calculus of bile duct without cholangitis or cholecystitis with obstruction; E78.5 Hyperlipidemia, unspecified; Z90.5 Acquired absence of kidney; K21.9 Gastro-esophageal reflux disease without esophagitis; Z79.899 Other long term (current) drug therapy; Z90.49 Acquired absence of other specified parts of digestive tract; F17.210 Nicotine dependence, cigarettes, uncomplicated
CPT/HCPCS: 43262; 43275; 43264; 74330; 76000; 88108; 88304; 88305; 88313; 93005; J2405

== ENCOUNTER → 2025-07-12 | Outpatient (CLI) | payer MEDICARE, OTHER, SELFPAY ==
[2025-07-12 12:05] LABS: PSA,Total - Annual Screen 0.76 ng/mL (0.02-4.00)
== END | disposition home or self-care (01) ==
LOC: LAB 10:22
PROVIDERS: PCP Internal Medicine; Referring Provider Urology; Visit Provider Urology
DX: Z12.5 Encounter for screening for malignant neoplasm of prostate (principal)
CPT/HCPCS: 36415; 84153; G0103